=== PATIENT | female | born 1940 | race Caucasian/White ===

== ENCOUNTER → 2020-08-01 13:16 | Outpatient (REF) | payer MEDICARE, SELFPAY ==
--- NOTE | 2020-08-01 13:24 | CA_ITS ---
Transthoracic Echocardiogram Patient (Last, First, Middle): ToddMarch, Gender: Female Date of : 1940 Age: 80 Procedure Date: 08/01/2020 Procedure Type: Transthoracic Echocardiogram Location: OP Height: 154.94 cm Weight: 74.84 kg BSA: 1.74 m2 Heart Rate: bpm BP: 140 / 62 mmHg Domestic Maid: SUELLEN Huynh MD: Carson Angelo MD Sap Specialist: Carson Angelo MD Symptoms: I48.0 A-FIB Study Quality: Good ECG Rhythm: Sinus Conclusions: - 1. Normal LV systolic function with impaired relaxation filling pattern 2. Normal cardiac valvular Doppler 3. No pericardial effusion Findings Left Ventricle Normal left ventricular size, thickness, and systolic function. The visually estimated ejection fraction is between 65-70%. Spectral Doppler is indicative of an impaired relaxation filling pattern. E/E prime ratio is between 8 and 15 consistent with indeterminate filling pressures. Right Ventricle Normal right ventricular cavity size and systolic function. Atria Both atria are normal in size. There is no evidence of interatrial shunt. Aortic Valve There is mild thickening of the aortic valve. There is no aortic valve stenosis. There is no aortic valve regurgitation. Mitral Valve There is mild anterior mitral leaflet thickening. There is mild mitral annular calcification. There is trace mitral valve regurgitation. There is no mitral valve stenosis. Pulmonic Valve The pulmonic valve is likely normal. There is trace to mild pulmonic valve regurgitation. Tricuspid Valve Normal tricuspid valve structure. Tricuspid regurgitation envelope is inadequate for calculation of right ventricular systolic pressure. Great Vessels All visible segments of the aorta are normal in size. The pulmonary artery was not well visualized. Venous The inferior vena cava is collapsed, consistent with reduced intravascular volume. Pericardium/Pleural There is no evidence of pericardial effusion. Prior Study Comparison No change compared to prior study dated: 01/04/2019. Measurements 2D Linear Measurements RVIDd: 3.03 RVIDd Index: 1.74 IVSd: 1.14 0.6-0.9/0.6-1.0 cm LVIDd: 4.90 3.9-5.3/4.2-5.9 cm LVIDd Index: 2.82 2.4-3.2/2.2-3.1 cm/m2 LVIDs: 2.81 2.0-3.6 cm LVPWd: 1.10 0.7-1.1 cm Ao Root: 3.10 2.1-3.5 cm LA Diam: 3.90 2.7-3.8/3.0-4.0 cm LAIDs Index: 2.24 1.5-2.3 cm/m2 LV Mass: 297.37 67-162/88-224 g LV Mass Index: 170.90 43-95/49-115 g/m2 LVOT Diam: 2.20 3.0+(-)1.3 cm 2D Systolic Function EF 4C: 67.20 >55% EF 2C: 73.80 >55% EF BiP: 70.60 >55% Mitral Valve MV Pk E: 0.76 MV PK A: 1.07 MV Decel Time: 260.00 E/A: 0.70 E'Lateral: 7.07 E'Medial: 6.74 E/E' Med: 11.30 E/E' Lat: 10.80 PHT: 76.00 MVA PHT: 2.89 Decel [place]: 2.93 Aortic Valve AoV Pk Graham: 1.55 AoV Mn Graham: 1.14 AoV VTI: 0.37 AoV Pk Grad: 10.00 Aov Mn Grad: 6.00 ASHLEY Cont.VTI: 2.67 LVOT LVOT Pk Graham: 1.41 LVOT Mn Graham: 0.88 LVOT VTI: 0.26 LVOT Pk Grad: 8.00 LVOT Mn Grad: 4.00 LVOT Diam: 2.20 LVOT Area: 3.80 Diastolic Function MV Pk E: 0.76 MV Pk A: 1.07 E/A: 0.70 E'Medial: 6.74 E/E' Med: 11.30 E' Laterial: 7.07 E/E' Lat: 10.80 Tricuspid Valve TV Pk Graham: 2.36 TV Pk Grad: 22.00 RA Press: 3.00 Great Vessels Aorta Ao Root-2D: 3.10 2.0-3.7 cm Ao Asc: 3.30 2.1-3.4 cm Ao Arch: 3.10 Updated in Other Vendor System with Status of Final Carson Angelo MD electronically signed on 08/02/2020 9:18:43 AM with status of Final
== END ==
LOC: HO.CARD 13:16
PROVIDERS: PCP Orthopaedic Surgery; Visit Provider Internal Medicine Cardiovascular Disease
DX: I48.0 Paroxysmal atrial fibrillation (principal)
CPT/HCPCS: 93306

== ENCOUNTER → 2020-09-17 12:58 | Outpatient (BNVA) | payer MEDICARE, SELFPAY | PROVIDERS: PCP Internal Medicine; Visit Provider Internal Medicine Cardiovascular Disease | DX: I48.0 Paroxysmal atrial fibrillation (principal); I10 Essential (primary) hypertension; R00.2 Palpitations | CPT/HCPCS: 99212 ==

== ENCOUNTER → 2020-09-25 14:45 | Outpatient (BNVA) | payer MEDICARE, SELFPAY | PROVIDERS: PCP Internal Medicine; Visit Provider Internal Medicine Cardiovascular Disease | DX: Z76.89 Persons encountering health services in other specified circumstances (principal) ==

== ENCOUNTER 2020-09-26 20:27 | Inpatient (IN) | payer MEDICARE, SELFPAY ==
[2020-09-26 20:40] VITALS: BP 158/94; PULSE 113; RESP 18; TEMP 36.6; O2SAT 98; BMI 32.9
--- NOTE | 2020-09-26 20:54 | XR_ITS ---
EXAMINATION: XR CHEST CLINICAL INFORMATION: Palpitations COMPARISON: 05/02/2020 TECHNIQUE: Frontal view of the chest was obtained. FINDINGS: No significant abnormality is noted involving the heart, lungs, mediastinum, bony thorax or soft tissues. XR/XR chest 1V IMPRESSION: Unremarkable examination.
--- NOTE | 2020-09-26 20:54 | ECG_ITS ---
Test Reason : PALPITATIONS Blood Pressure : / mmHG Vent. Rate : 111 BPM Atrial Rate : 075 BPM P-R Int : 000 ms QRS Dur : 092 ms QT Int : 294 ms P-R-T Axes : 000 -14 068 degrees QTc Int : 399 ms Atrial fibrillation with rapid ventricular response Marked ST abnormality, possible inferior subendocardial injury Abnormal ECG When compared to the previous EKG of Atrial fibrillation has replaced Normal sinus rhythm Referred By: Johann Turner Electronically Signed By:MYNOR BALDERAS MD
--- NOTE | 2020-09-26 20:57 | ED_ITS ---
HPI - Arrhythmia/Palpitations General Chief Complaint: Arrhythmia/Palpitations Stated Complaint: HEART PALIPTATIONS Time Seen by Provider: 09/26/20 20:43 Source: patient Mode of arrival: ambulatory Limitations: no limitations History of Present Illness HPI narrative: 80-year-old female with history of paroxysmal atrial fibrillation, patient was recently seen by Dr. Angelo and had a Holter monitor placed 2 days ago for evaluation of palpitation, patient presented today with 2 hours of feeling palpitation (patient checked her pulse was in the 130s), patient declined feeling dizziness but she had a mild mid chest pain to the right of the midsternum, with no radiation, patient declined any dyspnea, pain is about 1 to 2/10 with no radiation, nothing worsening the pain relief it. Related Data Home Medications Medication Instructions Recorded Confirmed amlodipine 10 mg tablet 10 mg PO DAILY 09/17/20 09/17/20 atorvastatin 40 mg tablet 40 mg PO DAILY 09/17/20 09/17/20 cholecalciferol (vitamin D3) 25 25 mcg PO DAILY 09/17/20 09/17/20 mcg (1,000 unit) capsule cyanocobalamin (vitamin B-12) 2,000 mcg PO DAILY 09/17/20 09/17/20 2,000 mcg tablet,extended release lorazepam 0.5 mg tablet 0.5 mg PO BEDTIME PRN 09/17/20 09/17/20 losartan 50 mg tablet 50 mg PO DAILY 09/17/20 09/17/20 metoprolol tartrate 50 mg tablet 50 mg PO BID 09/17/20 09/17/20 warfarin 5 mg tablet 5 mg PO DAILY 09/17/20 09/17/20 Allergies Allergy/AdvReac Type Severity Reaction Status Date / Time codeine [CODEINE] Allergy Unknown HEADACHES Unverified 06/21/20 15:11 hydrochlorothiazide Allergy Unknown NAUSEA & Unverified 06/21/20 15:11 [HYDROCHLOROTHIAZIDE] VOMITING, low K latex [LATEX] Allergy Unknown RASH Unverified 06/21/20 15:11 lisinopril [LISINOPRIL] Allergy Unknown COUGH Unverified 06/21/20 15:11 losartan [LOSARTAN] Allergy Unknown ITCHING Unverified 06/21/20 15:11 Review of Systems Review of Systems: All other systems are reviewed and are negative Constitutional: Reports as per HPI and Reports no additional constitutional complaints Eyes: Reports as per HPI and Reports no additional eye complaints Reports system reviewed and no additional complaints, except as documented Cardiovascular: Reports as per HPI and Reports no additional cardiovascular complaints Respiratory: Reports as per HPI and Reports no additional respiratory complaints Gastrointestinal: Reports as per HPI and Reports no additional gastrointestinal complaints Genitourinary: Reports no additional female genitourinary complaints Musculoskeletal: Reports no additional musculoskeletal complaints Skin/Breast: Reports system reviewed and no additional complaints, except as docu Psychiatric: Reports no additional psychiatric complaints Endocrine: Reports no additional endocrine complaints Hematologic/Lymphatic: Reports no additional hematologic/lymphatic complaints Allergic/Immunologic: Reports no additional allergic/immunologic complaints Reports system reviewed and no additional complaints, except as documented and R eports Abnormal speech present [facility] Past Medical History Medical History HTN (hypertension) Paroxysmal atrial fibrillation Surgical History Hx of tubal ligation Family History Family History Father CVD (cardiovascular disease) Mother CVD (cardiovascular disease) Diabetes Social History Social History Alcohol intake: never Smoking Status: Never smoker Use of substances other than those prescribed or required for medical reasons: No Advance Directives: No Advance Directives Information Provided: Yes Physical Exam Vital Signs: Vital Signs: Last Vital Signs Temp 97.9 F 09/26/20 20:40 Pulse 88 09/26/20 21:41 Resp 18 09/26/20 21:41 BP 116/69 09/26/20 21:41 Pulse Ox 95 09/26/20 21:41 Body Mass Index 32.9 Vital signs have been reviewed as normal and appeared to be correct. Blood pressure in the high range. Tachycardia. Respiration rate normal. Temperature normal. Oxygen saturation normal. Appearance: Alert. Oriented X3. No acute distress. Head: Normal external exam. Normocephalic. Atraumatic. No Slaughter signs noted. No raccoon eyes noted Eyes: PERRLA. EOMI. Conjunctiva and sclera normal. Eyelids normal. ENT: EAC normal. TM's Normal. Pharynx normal. Uvula midline. Moist mucous membranes. No trismus noted. No drooling noted. No muffled voice noted. Neck: Normal inspection. Neck supple. FROM. No adenopathy. Thyroid Normal. No meningeal signs. No neck mass noted. CVS: Rapid heart rate and irregular rhythm. Heart sound normal. No murmurs noted. Pulses normal throughout. Respiratory: No respiratory distress. Painless inspiration. Breath sounds normal. No wheezes/rales/rhonchi noted. Chest nontender. No accessory muscle usage noted or decreased air movement noted. Abdomen: Soft and nontender. Bowel sounds normal in all 4 quadrants. No distention noted. No organomegaly noted. No visible injury noted. Back: No CVA tenderness. Full range of motion noted. Skin: Skin warm and dry. Normal skin color. Normal skin turgor. No rashes/lesions/lacerations noted. Extremities: No lower extremity edema. Extremities exhibit normal range of motion. Extremities nontender. Neuro: Oriented X 3. No motor deficit. No sensory deficit. Reflexes normal. MDM - Arrhythmia/Palpitations MDM Narrative Medical decision making narrative: Assessment and plan. 80-year-old female with history of parts a small atrial fibrillation patient is taking propranolol/Coumadin for atrial fibrillation, for the past 2 days patient been having on and off feeling of palpitation with mild chest pain (to the right of the midsternum), patient was seen and evaluated by Dr. Angelo patient had Holter monitor was placed 2 days ago. Patient today found to be in rapid atrial fibrillation with rapid ventricular response, patient responded to Cardizem bolus/Cardizem IV drip. Lab Data Result diagrams: 09/26/20 21:14 09/26/20 21:14 Labs: Lab Results 09/26/20 09/26/20 09/26/20 Range/Units 21:14 21:14 21:14 WBC 8.9 (4.8-10.8) X10*3/uL RBC 5.11 (4.20-5.50) X10*6/uL Hgb 15.5 (12.0-16.0) g/dl Hct 45.6 (37-47) % MCV 89.2 (80-98) fL MCH 30.3 (27.0-33.0) pg MCHC 34.0 (31.0-35.0) g/dl RDW 12.7 (11.0-16.0) % Plt Count 229 (160-400) X10*3/uL MPV 9.8 (9.4-12.3) fL Immature Gran % (Auto) 0.1 (0.0-0.4) % Neut % (Auto) 53.9 (45-73) % Lymph % (Auto) 36.0 (20-40) % [place] % (Auto) 8.0 (2-11) % Eos % (Auto) 1.7 (0-4) % Baso % (Auto) 0.3 (0-2) % Lymph # (Auto) 3.2 (1.2-4.9) X10*3/uL [place] # (Auto) 0.7 (0.1-1.2) X10*3/uL Eos # (Auto) 0.2 (0.0-0.4) X10*3/uL Baso # (Auto) 0.0 (0.0-0.2) X10*3/uL Abs Immat Gran (auto) 0.01 (0.00-0.03) X10*3/uL Absolute Neuts (auto) 4.8 (2.0-8.3) X10*3/uL Absolute Nucleated RBC 0.000 (0.0-0.012) X10*3/uL Nucleated RBC % (auto) 0.0 (0.0-0.2) /100WBC PT 19.6 H (10.8-13.0) SEC INR 1.6 H (0.9-1.1) APTT 43.2 H (24.1-38.0) SEC Sodium 140 (135-145) mmol/L Potassium 3.8 (3.3-5.1) mmol/l Chloride 106 (96-108) mmol/L Carbon Dioxide 25 (22-29) mmol/L Anion Gap 13 (12-20) BUN 22 H (9-16) mg/dL Creatinine 0.75 (0.5-1.4) mg/dL Estim Creat Clear Calc 56.9 Estimated GFR > 60 Random Glucose 207 H (60-115) mg/dL Calcium 9.3 (8.4-10.2) mg/dL Total Bilirubin 1.8 H (0.0-1.0) mg/dL Direct Bilirubin 0.6 H (0.0-0.5) mg/dL AST 19 (5-31) U/L ALT 16 (0-31) U/L Alkaline Phosphatase 118 H (39-117) U/L Troponin I High Sens (<3.5-17.0) ng/L B-Natriuretic Peptide (<100) pg/mL Total Protein 7.2 (6.5-8.0) g/dL Albumin 4.4 (3.5-5.0) g/dL Lipase 37 (8-78) U/L Urine Color Urine Appearance Urine pH (5.0-8.0) Ur Specific [place] (1.005-1.025) Urine Protein (NEG-TRACE) MG/DL Urine Glucose (UA) (NEG) MG/DL Urine Ketones (NEG) MG/DL Urine Blood (NEG) Urine Nitrite (NEG) Ur Leukocyte Esterase (NEG) Urine RBC (0) /HPF Urine WBC (0-4) /HPF Ur Squamous Epith Cells /LPF Urine Bacteria /LPF COVID-19 (GANESH) (Negative) COVID-19 Clin Com 09/26/20 09/26/20 09/26/20 Range/Units 21:14 21:14 21:14 WBC (4.8-10.8) X10*3/uL RBC (4.20-5.50) X10*6/uL Hgb (12.0-16.0) g/dl Hct (37-47) % MCV (80-98) fL MCH (27.0-33.0) pg MCHC (31.0-35.0) g/dl RDW (11.0-16.0) % Plt Count (160-400) X10*3/uL MPV (9.4-12.3) fL Immature Gran % (Auto) (0.0-0.4) % Neut % (Auto) (45-73) % Lymph % (Auto) (20-40) % [place] % (Auto) (2-11) % Eos % (Auto) (0-4) % Baso % (Auto) (0-2) % Lymph # (Auto) (1.2-4.9) X10*3/uL [place] # (Auto) (0.1-1.2) X10*3/uL Eos # (Auto) (0.0-0.4) X10*3/uL Baso # (Auto) (0.0-0.2) X10*3/uL Abs Immat Gran (auto) (0.00-0.03) X10*3/uL Absolute Neuts (auto) (2.0-8.3) X10*3/uL Absolute Nucleated RBC (0.0-0.012) X10*3/uL Nucleated RBC % (auto) (0.0-0.2) /100WBC PT (10.8-13.0) SEC INR (0.9-1.1) APTT (24.1-38.0) SEC Sodium (135-145) mmol/L Potassium (3.3-5.1) mmol/l Chloride (96-108) mmol/L Carbon Dioxide (22-29) mmol/L Anion Gap (12-20) BUN (9-16) mg/dL Creatinine (0.5-1.4) mg/dL Estim Creat Clear Calc Estimated GFR Random Glucose (60-115) mg/dL Calcium (8.4-10.2) mg/dL Total Bilirubin (0.0-1.0) mg/dL Direct Bilirubin (0.0-0.5) mg/dL AST (5-31) U/L ALT (0-31) U/L Alkaline Phosphatase (39-117) U/L Troponin I High Sens 3.5 (<3.5-17.0) ng/L B-Natriuretic Peptide 66 (<100) pg/mL Total Protein (6.5-8.0) g/dL Albumin (3.5-5.0) g/dL Lipase (8-78) U/L Urine Color YELLOW Urine Appearance CLEAR Urine pH 6.5 (5.0-8.0) Ur Specific [place] 1.015 (1.005-1.025) Urine Protein NEG (NEG-TRACE) MG/DL Urine Glucose (UA) 100 H (NEG) MG/DL Urine Ketones NEG (NEG) MG/DL Urine Blood 1+ H (NEG) Urine Nitrite NEG (NEG) Ur Leukocyte Esterase NEG (NEG) Urine RBC 0-2 (0) /HPF Urine WBC 0-2 (0-4) /HPF Ur Squamous Epith Cells TRACE /LPF Urine Bacteria NONE /LPF COVID-19 (GANESH) Negative (Negative) COVID-19 Clin Com See Note Imaging Data Chest x-ray: Radiologist's impression: Unremarkable chest x-ray. ECG Data Interpretation: Atrial fibrillation with rapid ventricular response of 111 beats per minutes, left axis deviation, unremarkable intervals otherwise, ST de pression in V4, V5, V6. Critical Care Time Critical Care Time Critical Care Time: Yes Total Critical Care Time: 45 Attestation: I spent 45 minutes at the bedside providing critical care level to the patient, time including monitoring patient's vital signs, starting patient on AV holli, reviewing x-ray/labs/EKG, serial exam. Discharge Plan Discharge Clinical Impression: Palpitations, Atrial fibrillation Patient Disposition: Home, Self-Care Prescriptions: No Action amlodipine 10 mg tablet 10 mg PO DAILY RF: 0 losartan 50 mg tablet 50 mg PO DAILY RF: 0 metoprolol tartrate 50 mg tablet 50 mg PO BID RF: 0 warfarin 5 mg tablet 5 mg PO DAILY RF: 0 atorvastatin 40 mg tablet 40 mg PO DAILY RF: 0 lorazepam 0.5 mg tablet 0.5 mg PO BEDTIME PRN (Reason: anxiety) RF: 0 cyanocobalamin (vitamin B-12) 2,000 mcg tablet extended release 2,000 mcg PO DAILY RF: 0 cholecalciferol (vitamin D3) 25 mcg (1,000 unit) capsule 25 mcg PO DAILY RF: 0
[2020-09-26 21:23] LABS: Basophils Percent Auto 0.3 % (0-2); Eosinophils Absolute Auto 0.2 X10*3/uL (0.0-0.4); Eosinophils Percent Auto 1.7 % (0-4); Hematocrit 45.6 % (37-47); Hemoglobin 15.5 g/dl (12.0-16.0); Imm Gran Abs Auto 0.01 X10*3/uL (0.00-0.03); Imm Gran Pct Auto 0.1 % (0.0-0.4); Lymphocytes Absolute Auto 3.2 X10*3/uL (1.2-4.9); Mean Corpuscular Hemoglobin 30.3 pg (27.0-33.0); Mean Corpuscular Volume 89.2 fL (80-98); Mean Platelet Volume 9.8 fL (9.4-12.3); Monocytes Absolute Auto 0.7 X10*3/uL (0.1-1.2); Neutrophils Absolute Auto 4.8 X10*3/uL (2.0-8.3); Neutrophils Percent Auto 53.9 % (45-73); Platelet Count 229 X10*3/uL (160-400); Red Blood Count 5.11 X10*6/uL (4.20-5.50); Red Cell Distribution Width 12.7 % (11.0-16.0); White Blood Count 8.9 X10*3/uL (4.8-10.8)
[2020-09-26 21:25] LABS: MANUAL DIFF FLAG NO
[2020-09-26 21:30] LABS: Glucose Urine UA 100 MG/DL (NEG); Leukocyte Esterase Urine NEG (NEG); Nitrite Urine NEG (NEG); PH 6.5 (5.0-8.0); Specific Gravity - Urine 1.015 (1.005-1.025); Urine Blood 1+ (NEG); Urine Ketones NEG (NEG); Urine Protein NEG (NEG-TRACE)
--- NOTE | 2020-09-26 21:30 | PC.NURSE ---
iv inserted labs drawn, ekg performed, cxr performed
[2020-09-26 21:32] LABS: Appearance Urine CLEAR; Color Urine YELLOW
[2020-09-26 21:34] VITALS: BP 134/90; PULSE 119
[2020-09-26 21:34] LABS: INTERNATIONAL NORM RATIO 1.6 (0.9-1.1); Prothrombin Time 19.6 SEC (10.8-13.0)
[2020-09-26] MEDS: dilTIAZem HCL 50 MG/10 ML VIAL 20 MG IVPUSH (21:34)
[2020-09-26 21:36] LABS: COVID-19 Test Negative (Negative); Partial Thromboplastin Time 43.2 SEC (24.1-38.0)
[2020-09-26] MEDS: dilTIAZem HCL 125 MG in 0.9 % Sodium Chloride 100 ML 10 MG IVCONT (21:36)
--- NOTE | 2020-09-26 21:40 | PC.NURSE ---
pt medicated per order with bolus dose diltiazem, iv drip of diltiazem started, pt hr is ranging from 70s-100 after the initial ivp, provider wishes for the patient to continue with the iv drip at this time
[2020-09-26 21:41] VITALS: BP 116/69; PULSE 88; RESP 18; O2SAT 95
--- NOTE | 2020-09-26 21:42 | PC.NURSE ---
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
[2020-09-26 21:46] VITALS: BP 126/74; PULSE 90; RESP 17; O2SAT 95
[2020-09-26 21:48] LABS: RBC Urine 0-2 /HPF (0); Squamous Epithelial Cell Urine TRACE /LPF; WBC Urine 0-2 /HPF (0-4)
[2020-09-26 21:49] LABS: Alanine Aminotransferase 16 U/L (0-31); Albumin Level 4.4 g/dL (3.5-5.0); Alkaline Phosphatase 118 U/L (39-117); Anion Gap 13 (12-20); Aspartate Amino Transferase 19 U/L (5-31); Bilirubin Direct 0.6 mg/dL (0.0-0.5); Bilirubin Total 1.8 mg/dL (0.0-1.0); Blood Urea Nitrogen 22 mg/dL (9-16); Calcium 9.3 mg/dL (8.4-10.2); Carbon Dioxide 25 mmol/L (22-29); Chloride 106 mmol/L (96-108); Creatinine Clr Calc Pharmacy 56.9; Estimated Glomerular Filt Rate > 60; Glucose Random 207 mg/dL (60-115); Lipase 37 U/L (8-78); Potassium 3.8 mmol/l (3.3-5.1); Sodium 140 mmol/L (135-145); Total Protein 7.2 g/dL (6.5-8.0)
[2020-09-26 21:51] VITALS: BP 134/73; PULSE 97; RESP 17; O2SAT 94
[2020-09-26 21:54] LABS: B Type Natriuretic Peptide 66 pg/mL (<100); Troponin-I High Sensitivity 3.5 ng/L (<3.5-17.0)
--- NOTE | 2020-09-26 21:55 | PC.NURSE ---
patients ddiltiazem titrated to 15mg/hr, pt currently in afib on the monitor ranging from mid 90s-low 100s, patient vss, continues to be a&ox3, denies pain or discomfort, will continue to monitor.
[2020-09-26 22:00] VITALS: BP 129/86; PULSE 102; RESP 17; O2SAT 94
--- NOTE | 2020-09-26 22:24 | PC.NURSE ---
hospitalist in to see the patient
--- NOTE | 2020-09-26 23:43 | PC.NURSE ---
REPORT GIVEN TO RN, PT READY FOR TRANSPORT TO FLOOR.
[2020-09-27] VITALS (8 sets, daily range): BP systolic 107–152; BP diastolic 56–82; PULSE 57–86; RESP 14–18; TEMP 36.4–37.3; O2SAT 96–97; BMI 32.9
--- NOTE | 2020-09-27 00:14 | PC.NURSE ---
report from jane rn at 23:00. pt is in no distress and never experienced any chest discomfort. jane reports pt's hr has been 88-110 afib. pt's hr has been in the 80's since 22:00. pt remained on cardiaen drip 15mg/hr until 00:00 when pt ready for transport. noticed bp and hr had come down. pt now in NSR rate of 62. cardizem drip lowered to 10mg/hr, spoke with MD Turner in ER. Johnny then decided to lower cardizem drip again, fearfull if we take her off her HR will rebound. pt now on cardizem drip 5mg/hr.
--- NOTE | 2020-09-27 00:57 | PC.NURSE ---
Patient admited to unit from ED with Cardizem drip at 5mg/hr. Per EDRN patient had coverted to NSR at some point before transfer occured. HR NSR 60s. MD made aware. Cardizem Drip held per MD. Patient alert and oriented. No complaints at this time. VSS. HR currently 55 sinus alexandrea. Patient able to ambulate to the bed from hallway. Will monitor.
--- NOTE | 2020-09-27 01:18 | PC.NURSE ---
PT TRANSPORTED TO FLOOR ON ENVIRONMENTAL INTERN. CARDIZEM DRIP DC'D PER HOSPITALIST ORDER PER RN ON FLOOR. PT REMAINED IN NSR RATE 65 DURING TRANSPORT AND WHILE TRANSFERRING TO ROOM.
[2020-09-27 01:51] LABS: INTERNATIONAL NORM RATIO 1.7 (0.9-1.1); Prothrombin Time 20.3 SEC (10.8-13.0)
[2020-09-27 04:36] LABS: Basophils Percent Auto 0.5 % (0-2); Eosinophils Absolute Auto 0.1 X10*3/uL (0.0-0.4); Eosinophils Percent Auto 1.9 % (0-4); Hematocrit 40.2 % (37-47); Hemoglobin 13.3 g/dl (12.0-16.0); Imm Gran Abs Auto 0.01 X10*3/uL (0.00-0.03); Imm Gran Pct Auto 0.2 % (0.0-0.4); Lymphocytes Absolute Auto 2.2 X10*3/uL (1.2-4.9); Lymphocytes Percent Auto 34.4 % (20-40); MANUAL DIFF FLAG NO; Mean Corpuscular HGB Conc 33.1 g/dl (31.0-35.0); Mean Corpuscular Hemoglobin 29.6 pg (27.0-33.0); Mean Corpuscular Volume 89.5 fL (80-98); Mean Platelet Volume 10.1 fL (9.4-12.3); Monocytes Absolute Auto 0.6 X10*3/uL (0.1-1.2); Monocytes Percent Auto 9.8 % (2-11); Neutrophils Absolute Auto 3.4 X10*3/uL (2.0-8.3); Neutrophils Percent Auto 53.2 % (45-73); Platelet Count 213 X10*3/uL (160-400); Red Blood Count 4.49 X10*6/uL (4.20-5.50); Red Cell Distribution Width 12.7 % (11.0-16.0); White Blood Count 6.3 X10*3/uL (4.8-10.8)
[2020-09-27 05:03] LABS: Anion Gap 11 (12-20); Blood Urea Nitrogen 22 mg/dL (9-16); Calcium 8.8 mg/dL (8.4-10.2); Carbon Dioxide 24 mmol/L (22-29); Chloride 109 mmol/L (96-108); Creatinine Clr Calc Pharmacy 66.6; Estimated Glomerular Filt Rate > 60; Glucose Random 110 mg/dL (60-115); Potassium 3.6 mmol/l (3.3-5.1); Sodium 140 mmol/L (135-145)
--- NOTE | 2020-09-27 05:09 | PM.IMHP ---
History of Present Illness Date of Service: 09/26/20 Chief Complaint: Palpitations This is an 80-year-old female with past medical history of hypertension and paroxysmal AFib presents the hospital with complaints of palpitations. Patient reports that she was watching cell takes came when she felt her heart racing. She did not have any chest pain, no dizziness, no headache, no change in vision, no abdominal pain nausea or vomiting. No diarrhea constipation. No weakness numbness or tingling. She reports that she is usually has sensations of palpitations binge with this 1 was the lasting longer than 20 minutes. She has seen her sale professional digital marketing recently and was placed on a Holter monitor. She has not had any orthopnea PND or lower extremity edema. She reports that her heart was in the 130s at home. On arrival to the ED hemodynamically stable with vitals showing heart rate of 119, Labs are significant for WBC count of 6.3, hemoglobin of 13.3 hematocrit of 40.2, PT of 20.3, INR of 1.7, sodium of 140, BUN of 22 with creatinine of 0.64. Chronically mildly elevated total bili of 1.8, UA negative. Chest x-ray negative. Past medical history: Hypertension, paroxysmal AFib on Coumadin Past surgical history: Cataracts, tubal ligation Family history: Heart disease Social history: Comes from home, lives with her son and her granddaughter, denies any tobacco alcohol or illicit drugs Review of Systems Review of Systems: Yes all other systems are reviewed and are negative [facility] Medical History HTN (hypertension) Paroxysmal atrial fibrillation Family History Father CVD (cardiovascular disease) Mother CVD (cardiovascular disease) Diabetes Surgical History Hx of tubal ligation Social History Household Members: Family Housing: House Do you presently have visiting nurse or other home services: No Alcohol intake: never Smoking Status: Never smoker Use of substances other than those prescribed or required for medical reasons: No Have you been hit, kicked, punched, or otherwise hurt by someone within the past year? If so, by whom?: No Do you feel safe in your current relationship?: No Current Relationship Is there a partner from a previous relationship who is making you feel unsafe now?: No Are you made to feel afraid or neglected: No Advance Directives: No Advance Directives Information Provided: Yes Do you have thoughts of harming others: None Do you have a plan to hurt others: No Plan Recently lost weight without trying: No Meds Allergies Allergy/AdvReac Type Severity Reaction Status Date / Time codeine [CODEINE] Allergy Intermediate HEADACHES Verified 09/26/20 22:34 hydrochlorothiazide Allergy Intermediate NAUSEA & Verified 09/26/20 22:34 [HYDROCHLOROTHIAZIDE] VOMITING, low K latex [LATEX] Allergy Intermediate RASH Verified 09/26/20 22:34 lisinopril [LISINOPRIL] AdvReac Mild COUGH Verified 09/26/20 22:35 losartan [LOSARTAN] AdvReac Mild ITCHING Verified 09/26/20 22:35 Home Medications Medication Instructions Recorded Confirmed Type amlodipine 10 mg tablet 10 mg PO DAILY 09/17/20 09/26/20 History atorvastatin 40 mg tablet 40 mg PO DAILY 09/17/20 09/26/20 History cholecalciferol (vitamin D3) 25 25 mcg PO DAILY 09/17/20 09/26/20 History mcg (1,000 unit) capsule metoprolol tartrate 50 mg tablet 50 mg PO BID 09/17/20 09/26/20 History warfarin 5 mg tablet 2.5 mg PO DAILY 09/17/20 09/26/20 History losartan 1 tab PO DAILY 09/26/20 09/26/20 History Physical Exam Vital Signs and Narrative: Vital Signs: Last Vital Signs Temp 97.9 F 09/27/20 03:14 Pulse 76 09/27/20 03:14 Resp 18 09/27/20 03:14 BP 141/63 H 09/27/20 03:14 Pulse Ox 97 09/27/20 03:14 Body Mass Index 32.9 Const: General: cooperative and no acute distress Orientation/consciousness: patient oriented x3 Eyes: General: appearance normal, both eyes and all related structures Pupils: Equal, round and reactive pupils present Resp: Effort & Inspection: normal respiratory effort and able to speak in complete sentences Cardio: Other: Tachycardic, irregular rhythm GI: Palpation (GI): Soft to palpation Auscultation: normal bowel sounds Skin: General skin exam: no rashes or lesions noted Neuro: General: patient oriented x3 Cranial nerves: Yes Equal, round and reactive pupils present Cognition (Neuro): normal cognition Extrem: General: Yes normal to inspection and Yes no pedal edema Results Labs CBC and Chem 7: 09/27/20 04:14 09/27/20 04:14 Labs: Laboratory Results - last 24 hr 09/26/20 09/26/20 09/26/20 21:14 21:14 21:14 MCV 89.2 MCH 30.3 MCHC 34.0 RDW 12.7 Plt Count 229 MPV 9.8 Immature Gran % (Auto) 0.1 Neut % (Auto) 53.9 Lymph % (Auto) 36.0 [place] % (Auto) 8.0 Eos % (Auto) 1.7 Baso % (Auto) 0.3 Lymph # (Auto) 3.2 [place] # (Auto) 0.7 Eos # (Auto) 0.2 Baso # (Auto) 0.0 Abs Immat Gran (auto) 0.01 Absolute Neuts (auto) 4.8 Absolute Nucleated RBC 0.000 Nucleated RBC % (auto) 0.0 PT 19.6 H INR 1.6 H APTT 43.2 H Anion Gap 13 Estim Creat Clear Calc 56.9 Estimated GFR > 60 Random Glucose 207 H Calcium 9.3 Total Bilirubin 1.8 H Direct Bilirubin 0.6 H AST 19 ALT 16 Alkaline Phosphatase 118 H Troponin I High Sens B-Natriuretic Peptide Total Protein 7.2 Albumin 4.4 Lipase 37 Urine Color Urine Appearance Urine pH Ur Specific [place] Urine Protein Urine Glucose (UA) Urine Ketones Urine Blood Urine Nitrite Ur Leukocyte Esterase Urine RBC Urine WBC Ur Squamous Epith Cells Urine Bacteria COVID-19 (GANESH) COVID-19 Clin Com 09/26/20 09/26/20 09/26/20 21:14 21:14 21:14 MCV MCH MCHC RDW Plt Count MPV Immature Gran % (Auto) Neut % (Auto) Lymph % (Auto) [place] % (Auto) Eos % (Auto) Baso % (Auto) Lymph # (Auto) [place] # (Auto) Eos # (Auto) Baso # (Auto) Abs Immat Gran (auto) Absolute Neuts (auto) Absolute Nucleated RBC Nucleated RBC % (auto) PT INR APTT Anion Gap Estim Creat Clear Calc Estimated GFR Random Glucose Calcium Total Bilirubin Direct Bilirubin AST ALT Alkaline Phosphatase Troponin I High Sens 3.5 B-Natriuretic Peptide 66 Total Protein Albumin Lipase Urine Color YELLOW Urine Appearance CLEAR Urine pH 6.5 Ur Specific [place] 1.015 Urine Protein NEG Urine Glucose (UA) 100 H Urine Ketones NEG Urine Blood 1+ H Urine Nitrite NEG Ur Leukocyte Esterase NEG Urine RBC 0-2 Urine WBC 0-2 Ur Squamous Epith Cells TRACE Urine Bacteria NONE COVID-19 (GANESH) Negative COVID-19 Clin Com See Note 09/27/20 09/27/20 09/27/20 01:29 04:14 04:14 MCV 89.5 MCH 29.6 MCHC 33.1 RDW 12.7 Plt Count 213 MPV 10.1 Immature Gran % (Auto) 0.2 Neut % (Auto) 53.2 Lymph % (Auto) 34.4 [place] % (Auto) 9.8 Eos % (Auto) 1.9 Baso % (Auto) 0.5 Lymph # (Auto) 2.2 [place] # (Auto) 0.6 Eos # (Auto) 0.1 Baso # (Auto) 0.0 Abs Immat Gran (auto) 0.01 Absolute Neuts (auto) 3.4 Absolute Nucleated RBC 0.000 Nucleated RBC % (auto) 0.0 PT 20.3 H INR 1.7 H APTT Anion Gap 11 L Estim Creat Clear Calc 66.6 Estimated GFR > 60 Random Glucose 110 D Calcium 8.8 Total Bilirubin Direct Bilirubin AST ALT Alkaline Phosphatase Troponin I High Sens B-Natriuretic Peptide Total Protein Albumin Lipase Urine Color Urine Appearance Urine pH Ur Specific [place] Urine Protein Urine Glucose (UA) Urine Ketones Urine Blood Urine Nitrite Ur Leukocyte Esterase Urine RBC Urine WBC Ur Squamous Epith Cells Urine Bacteria COVID-19 (GANESH) COVID-19 Clin Com Imaging Radiologist's Impressions: Impressions Chest X-Ray 09/26/20 20:54 IMPRESSION: Unremarkable examination. Assessment and Plan (1) Atrial fibrillation with RVR: Status: Acute (2) HTN (hypertension): Status: Acute This is an 80-year-old female with past medical history of AFib on Coumadin who presents to the hospital in palpitations. # AFib with RVR - heart rate 90-120 - asymptomatic except for palpitations, no dizziness, no chest pain, no shortness of breath - patient has been having palpitations regularly and has been placed on Holter monitor by her sale professional digital marketing 2 days ago - no troponin leak, no elevated BNP, no evidence of CHF Plan: - patient on Cardizem drip with rate control - continue Coumadin, amiodarone and metoprolol(can give metoprolol once off the Cardizem drip) - echocardiogram - consult cardiology # hypertension - stable - continue losartan # subtherapeutic INR - continue Coumadin - follow PT INR daily DVT prophylaxis: Coumadin
[2020-09-27 06:27] LABS: INTERNATIONAL NORM RATIO 1.8 (0.9-1.1); Prothrombin Time 21.5 SEC (10.8-13.0)
--- NOTE | 2020-09-27 08:47 | MHC.CM.PN ---
CM was unable to reach Patient by phone (Covid Precautions) ; CM spoke with Daughter/Brianna at [phone]. Patient lives in a 2 family house with her Son/Ousmane and his on the first floor and her other Son living upstairs. Patient used no DME nor services [employer]. Patient has her blood work r/t her Coumadin, drawn at [facility] in [place].The goal for dc is to return home, no services and CM has initiated and will follow for dc planning. IMM addressed with Brianna and will be mailed certified letter to her @ [facility] in [place], and a copy has been placed on the chart.PCP is Dr. Claudia Mondragon and HCP is Son/Gasper @ [phone].
[2020-09-27] MEDS: Metoprolol Tartrate 50 MG TABLET PO (09:57)
[2020-09-27] MEDS: 0.9 % Sodium Chloride Flush 3 ML SYRINGE IVFLUSH (10:00)
[2020-09-27] MEDS: Cholecalciferol (Vitamin D3) 25 MCG TABLET PO (10:00)
[2020-09-27] MEDS: amLODIPine Besylate 10 MG TABLET PO (10:00)
--- NOTE | 2020-09-27 10:02 | PC.NURSE ---
Seen by cardiology. Will begin pt on multaq 400 BID. Pt educated on use of medication. Plan for discharge after lunch today. Pt refusing losartan this am as she states that she takes at home and will take later today after discharge.
[2020-09-27] MEDS: Dronedarone HCl 400 MG TABLET PO (10:06)
--- NOTE | 2020-09-27 11:22 | PM.CNCAR ---
History of Present Illness History of Present Illness Date of Service: 09/27/20 Consult reason: atrial fibrillation Chief complaint: Afib with RVR Narrative: Thank you for inviting us and consult on March for atrial fibrillation. She is a pleasant 80-year-old woman was prior history of paroxysmal atrial fibrillation. She also has history of hypertension that has been difficult control. Yesterday while she was watching cell takes came, she started noticing irregular heartbeat and feeling palpitation and funny. She then took her pulse and noted that her pulse was irregular. She took her blood pressure and pulse on the blood pressure monitor reported at 130. She got concerned. She did take extra metoprolol but symptoms persisted and therefore came to the emergency room. In the emergency room she was noted to be in atrial fibrillation with rapid ventricular response. She was therefore admitted with IV Cardizem. She converted back to sinus rhythm. This morning feels pounding in her chest and skipped heartbeats. Monitor shows isolated PACs. Blood pressure is well controlled. She is very anxious about this new finding. She has been adequately oral anticoagulated with warfarin. Review of Systems Constitutional: Constitutional: Denies body ache(s), Denies chills, Denies fever(s) and Denies malaise Eyes: Eyes: Reports no additional eye complaints ENT: Reports system reviewed and no additional complaints, except as documented Cardiovascular: Cardiovascular: Reports chest pain, Denies chest pain with activity and Reports palpitations Respiratory: Respiratory: Reports no additional respiratory complaints Gastrointestinal: Gastrointestinal: Reports no additional gastrointestinal complaints Genitourinary: Genitourinary: Reports no additional female genitourinary complaints Neurologic: Reports system reviewed and no additional complaints, except as documented Psychiatric: Psychiatric: Reports anxiety Endocrine: Endocrine: Reports no additional endocrine complaints and Reports palpitations Hematologic/Lymphatic: Hematologic/Lymphatic: Reports no additional hematologic/lymphatic complaints Allergic/Immunologic: Allergic/Immunologic: Reports no additional allergic/immunologic complaints [facility] Past Medical History Medical History HTN (hypertension) Paroxysmal atrial fibrillation Family History Family History Father CVD (cardiovascular disease) Mother CVD (cardiovascular disease) Diabetes Surgical History Surgical History Hx of tubal ligation Social History Social History Household Members: Family Housing: House Do you presently have visiting nurse or other home services: No Alcohol intake: never Smoking Status: Never smoker Use of substances other than those prescribed or required for medical reasons: No Have you been hit, kicked, punched, or otherwise hurt by someone within the past year? If so, by whom?: No Do you feel safe in your current relationship?: No Current Relationship Is there a partner from a previous relationship who is making you feel unsafe now?: No Are you made to feel afraid or neglected: No Advance Directives: No Advance Directives Information Provided: Yes Do you have thoughts of harming others: None Do you have a plan to hurt others: No Plan Recently lost weight without trying: No service: No Current occupational status: retired [employer] Allergies Allergy/AdvReac Type Severity Reaction Status Date / Time codeine [CODEINE] Allergy Intermediate HEADACHES Verified 09/26/20 22:34 hydrochlorothiazide Allergy Intermediate NAUSEA & Verified 09/26/20 22:34 [HYDROCHLOROTHIAZIDE] VOMITING, low K latex [LATEX] Allergy Intermediate RASH Verified 09/26/20 22:34 lisinopril [LISINOPRIL] AdvReac Mild COUGH Verified 09/26/20 22:35 losartan [LOSARTAN] AdvReac Mild ITCHING Verified 09/26/20 22:35 Home Medications Medication Instructions Recorded Confirmed Type amlodipine 10 mg tablet 10 mg PO DAILY 09/17/20 09/26/20 History atorvastatin 40 mg tablet 40 mg PO DAILY 09/17/20 09/26/20 History cholecalciferol (vitamin D3) 25 25 mcg PO DAILY 09/17/20 09/26/20 History mcg (1,000 unit) capsule metoprolol tartrate 50 mg tablet 50 mg PO BID 09/17/20 09/26/20 History warfarin 5 mg tablet 2.5 mg PO DAILY 09/17/20 09/26/20 History losartan 1 tab PO DAILY 09/26/20 09/26/20 History Physical Exam Vital Signs: Vital Signs: Last Vital Signs Temp 98.2 F 09/27/20 07:25 Pulse 86 09/27/20 09:57 Resp 17 09/27/20 07:25 BP 152/82 H 09/27/20 09:57 Pulse Ox 96 09/27/20 07:25 Body Mass Index 32.9 Const: General: cooperative, comfortable, no acute distress, alert and awake Nutritional Appearance: overweight Orientation/consciousness: patient oriented x3 Limitations: no limitations HENMT: Head: Yes normocephalic and Yes atraumatic Eyes: General: appearance normal, both eyes and all related structures Neck: Neck: Yes trachea midline, Yes supple and Yes no JVD Chest: Chest palpation & inspection: normal inspection of the chest Resp: Effort & Inspection: normal respiratory effort Auscultation: clear to auscultation bilaterally Cardio: Jugular venous distension: no JVD Palpation: normal PMI Rate: regular rate Rhythm: regular rhythm Heart sounds: S1 normal heart sound present, S2 normal heart sound present and Other heart sounds present (S4 present) GI: Auscultation: normal bowel sounds Skin: General skin exam: no rashes or lesions noted Neuro: General: patient oriented x3 Results Labs and Meds Result diagrams: 09/27/20 04:14 09/27/20 04:14 Lab results: Laboratory Results - last 24 hr 09/26/20 09/26/20 09/26/20 21:14 21:14 21:14 WBC 8.9 RBC 5.11 Hgb 15.5 Hct 45.6 MCV 89.2 MCH 30.3 MCHC 34.0 RDW 12.7 Plt Count 229 MPV 9.8 Immature Gran % (Auto) 0.1 Neut % (Auto) 53.9 Lymph % (Auto) 36.0 [place] % (Auto) 8.0 Eos % (Auto) 1.7 Baso % (Auto) 0.3 Lymph # (Auto) 3.2 [place] # (Auto) 0.7 Eos # (Auto) 0.2 Baso # (Auto) 0.0 Abs Immat Gran (auto) 0.01 Absolute Neuts (auto) 4.8 Absolute Nucleated RBC 0.000 Nucleated RBC % (auto) 0.0 PT 19.6 H INR 1.6 H APTT 43.2 H Sodium 140 Potassium 3.8 Chloride 106 Carbon Dioxide 25 Anion Gap 13 BUN 22 H Creatinine 0.75 Estim Creat Clear Calc 56.9 Estimated GFR > 60 Random Glucose 207 H Calcium 9.3 Total Bilirubin 1.8 H Direct Bilirubin 0.6 H AST 19 ALT 16 Alkaline Phosphatase 118 H Troponin I High Sens B-Natriuretic Peptide Total Protein 7.2 Albumin 4.4 Lipase 37 Urine Color Urine Appearance Urine pH Ur Specific [place] Urine Protein Urine Glucose (UA) Urine Ketones Urine Blood Urine Nitrite Ur Leukocyte Esterase Urine RBC Urine WBC Ur Squamous Epith Cells Urine Bacteria COVID-19 (GANESH) COVID-19 Clin Com 09/26/20 09/26/20 09/26/20 21:14 21:14 21:14 WBC RBC Hgb Hct MCV MCH MCHC RDW Plt Count MPV Immature Gran % (Auto) Neut % (Auto) Lymph % (Auto) [place] % (Auto) Eos % (Auto) Baso % (Auto) Lymph # (Auto) [place] # (Auto) Eos # (Auto) Baso # (Auto) Abs Immat Gran (auto) Absolute Neuts (auto) Absolute Nucleated RBC Nucleated RBC % (auto) PT INR APTT Sodium Potassium Chloride Carbon Dioxide Anion Gap BUN Creatinine Estim Creat Clear Calc Estimated GFR Random Glucose Calcium Total Bilirubin Direct Bilirubin AST ALT Alkaline Phosphatase Troponin I High Sens 3.5 B-Natriuretic Peptide 66 Total Protein Albumin Lipase Urine Color YELLOW Urine Appearance CLEAR Urine pH 6.5 Ur Specific [place] 1.015 Urine Protein NEG Urine Glucose (UA) 100 H Urine Ketones NEG Urine Blood 1+ H Urine Nitrite NEG Ur Leukocyte Esterase NEG Urine RBC 0-2 Urine WBC 0-2 Ur Squamous Epith Cells TRACE Urine Bacteria NONE COVID-19 (GANESH) Negative COVID-19 Clin Com See Note 09/27/20 09/27/20 09/27/20 01:29 04:14 04:14 WBC 6.3 RBC 4.49 Hgb 13.3 Hct 40.2 MCV 89.5 MCH 29.6 MCHC 33.1 RDW 12.7 Plt Count 213 MPV 10.1 Immature Gran % (Auto) 0.2 Neut % (Auto) 53.2 Lymph % (Auto) 34.4 [place] % (Auto) 9.8 Eos % (Auto) 1.9 Baso % (Auto) 0.5 Lymph # (Auto) 2.2 [place] # (Auto) 0.6 Eos # (Auto) 0.1 Baso # (Auto) 0.0 Abs Immat Gran (auto) 0.01 Absolute Neuts (auto) 3.4 Absolute Nucleated RBC 0.000 Nucleated RBC % (auto) 0.0 PT 20.3 H INR 1.7 H APTT Sodium 140 Potassium 3.6 Chloride 109 H Carbon Dioxide 24 Anion Gap 11 L BUN 22 H Creatinine 0.64 Estim Creat Clear Calc 66.6 Estimated GFR > 60 Random Glucose 110 D Calcium 8.8 Total Bilirubin Direct Bilirubin AST ALT Alkaline Phosphatase Troponin I High Sens B-Natriuretic Peptide Total Protein Albumin Lipase Urine Color Urine Appearance Urine pH Ur Specific [place] Urine Protein Urine Glucose (UA) Urine Ketones Urine Blood Urine Nitrite Ur Leukocyte Esterase Urine RBC Urine WBC Ur Squamous Epith Cells Urine Bacteria COVID-19 (GANESH) COVID-19 Clin Com 09/27/20 05:47 WBC RBC Hgb Hct MCV MCH MCHC RDW Plt Count MPV Immature Gran % (Auto) Neut % (Auto) Lymph % (Auto) [place] % (Auto) Eos % (Auto) Baso % (Auto) Lymph # (Auto) [place] # (Auto) Eos # (Auto) Baso # (Auto) Abs Immat Gran (auto) Absolute Neuts (auto) Absolute Nucleated RBC Nucleated RBC % (auto) PT 21.5 H INR 1.8 H APTT Sodium Potassium Chloride Carbon Dioxide Anion Gap BUN Creatinine Estim Creat Clear Calc Estimated GFR Random Glucose Calcium Total Bilirubin Direct Bilirubin AST ALT Alkaline Phosphatase Troponin I High Sens B-Natriuretic Peptide Total Protein Albumin Lipase Urine Color Urine Appearance Urine pH Ur Specific [place] Urine Protein Urine Glucose (UA) Urine Ketones Urine Blood Urine Nitrite Ur Leukocyte Esterase Urine RBC Urine WBC Ur Squamous Epith Cells Urine Bacteria COVID-19 (GANESH) COVID-19 Clin Com Assessment and Plan (1) Paroxysmal atrial fibrillation: Status: Acute Recurrent atrial fibrillation without any clear triggers. Highly symptomatic leading to hospitalization. Will need to pursue rhythm control approach with antiarrhythmic drug therapy as she is already on metoprolol therapy. She remains symptomatic a little bit with strong heartbeat related to PACs. Will start her on Multaq 400 mg b.i.d. as an antiarrhythmic drug with her underlying structure of the heart this would be an appropriate therapy without much side effects. This was discussed with her. Given heart rate in the 80s and 90s, will continue metoprolol at current dose. Will follow up as outpatient with Holter monitor. Pathophysiology of atrial fibrillation management were discussed in details. If she persists with recurrent episodes of atrial fibrillation, may need alternative drug such as amiodarone and/or ablation. This was discussed with her. Continue warfarin therapy, however she has subtherapeutic INR. Maintain INR between 2 and 3. This is being followed by [facility]. Given that she has asymptomatic lowering of her INR, although she has very well controlled INR otherwise, consideration to switch to direct oral anticoagulant therapy should be pursued. Will follow this as an outpatient. Discharged after 2 hours after EKG with oral Multaq as long as she tolerates it. (2) HTN (hypertension): Status: Acute Hypertension, well controlled. Continue current therapy.
--- NOTE | 2020-09-27 12:55 | ECG_ITS ---
Test Reason : CP Blood Pressure : / mmHG Vent. Rate : 059 BPM Atrial Rate : 059 BPM P-R Int : 146 ms QRS Dur : 080 ms QT Int : 408 ms P-R-T Axes : 083 -13 040 degrees QTc Int : 403 ms Poor data quality, interpretation may be adversely affected Sinus bradycardia Otherwise normal ECG When compared with ECG of 26-SEP-2020 20:59, Vent. rate has decreased BY [address] no longer depressed in Inferior leads ST no longer depressed in Lateral leads T wave inversion no longer evident in Lateral leads Referred By: Carson Angelo Electronically Signed By:CARSON ANGELO MD
--- NOTE | 2020-09-27 15:02 | MHC.CM.PN ---
Patient has been medically cleared for dc to home today, no services. Last IMM addressed this morning.
--- NOTE | 2020-09-27 15:08 | PM.DS ---
DS: Providers Provider Date of admission: 09/26/20 23:01 Primary care physician: Claudia Mondragon DO Consults: 09/27/20 00:19 Consult to Cardiology Routine Consulting Provider: Carson Angelo Reason for consultation: A.fib with RVR Has provider been notified: No DS: Diagnosis Discharge Diagnosis (1) Paroxysmal atrial fibrillation: Status: Acute (2) HTN (hypertension): Status: Acute DS: Medications Discharge Medications Home Medications: Home Medications Medication Instructions Recorded Confirmed amlodipine 10 mg tablet 10 mg PO DAILY 09/17/20 09/26/20 atorvastatin 40 mg tablet 40 mg PO DAILY 09/17/20 09/26/20 cholecalciferol (vitamin D3) 25 25 mcg PO DAILY 09/17/20 09/26/20 mcg (1,000 unit) capsule metoprolol tartrate 50 mg tablet 50 mg PO BID 09/17/20 09/26/20 losartan 1 tab PO DAILY 09/26/20 09/26/20 Previous Rx's Medication Instructions Recorded dronedarone [Multaq] 400 mg PO BID #60 tab 09/27/20 warfarin 3 mg PO DAILY #30 tab 09/27/20 DS: Summary Hospital Course Hospital Course: 80-year-old female with past medical history of hypertension and paroxysmal AFib presents the hospital with complaints of palpitations. Patient reports that she was watching cell takes came when she felt her heart racing. She did not have any chest pain, no dizziness, no headache, no change in vision, no abdominal pain nausea or vomiting. No diarrhea constipation. No weakness numbness or tingling. She reports that she is usually has sensations of palpitations binge with this 1 was the lasting longer than 20 minutes. She has seen her market research manager recently and was placed on a Holter monitor. She has not had any orthopnea PND or lower extremity edema. She reports that her heart was in the 130s at home. On arrival to the ED hemodynamically stable with vitals showing heart rate of 119, Labs are significant for WBC count of 6.3, hemoglobin of 13.3 hematocrit of 40.2, PT of 20.3, INR of 1.7, sodium of 140, BUN of 22 with creatinine of 0.64. Chronically mildly elevated total bili of 1.8, UA negative. Chest x-ray negative. Past medical history: Hypertension, paroxysmal AFib on Coumadin. Hospital Course problem johnson section: Patient came with a defibrillation with RVr- Will need to pursue rhythm control approach with antiarrhythmic drug therapy as she is already on metoprolol therapy. She remains symptomatic a little bit with strong heartbeat related to PACs. Patient seen by Cardiology and patient was started on Multaq 400 mg b.i.d.. Given heart rate in the 80s and 90s, continue metoprolol at current dose. EKG repeated after Multaq seems fine. Will follow up as outpatient with Holter monitor with cardiology. Continue warfarin therapy, however she has subtherapeutic INR. Patient warfarin adjusted to 3 mg daily, last INR was 1.8 today. Patient was told to follow-up in Coumadin clinic and follow-up INR, goal INR is between 2 and 3. moniter inr outpatiently. Above management discussed with the patient in detail length she understand and in agreement with the above plan, time spent 50 minutes and 50% time spent on counseling. Significant findings: As above. Procedures performed: None. Treatment and response: As above. Complications: None. Time Spent with Patient Time attestation: Total time spent providing and/or coordinating discharge services: Physical Exam Vital Signs: Vital Signs: Last Vital Signs Temp 99.1 F 09/27/20 11:38 Pulse 57 09/27/20 11:38 Resp 16 09/27/20 11:38 BP 113/60 09/27/20 11:38 Pulse Ox 97 09/27/20 11:38 Body Mass Index 32.9 Physical exam: Constitutional: Not in distress, no new complaints HEENT: Eyes anicteric , no discharge. Cvs: rrr, [id number] , no murmur res: clear to auscultation ,no rhonchii or wheezing abd: no rebound or guarding ,nt, bs present. ext pulses present , no cyanosis neuro: axo3 , nonfocal. DS: Data Data Completed and Pending Labs on day of discharge: 09/26/20 20:54 ECG 12 lead EKG Stat EKG Documentation DIRECTED XR chest 1V Stat 09/26/20 20:55 dilTIAZem HCL [Cardizem] 20 mg IVPUSH ONCE ONE 09/26/20 21:14 B Type Natriuretic Peptide Stat Basic Metabolic Panel Stat COVID-19 ID NOW (Funez) Stat Complete Blood Count Auto Diff Stat Lipase Stat Liver Panel Stat Partial Thromboplastin Time Stat Prothrombin Time INR Stat Troponin-I High Sensitivity Stat 09/26/20 21:21 dilTIAZem HCL [Cardizem] 125 mg IVCONT .STK-MED ONE 09/26/20 22:56 Transfer Order Routine 09/27/20 01:29 Prothrombin Time INR Stat 09/27/20 04:14 Basic Metabolic Panel Routine Complete Blood Count Auto Diff Routine 09/27/20 05:47 Prothrombin Time INR DAILY 09/27/20 09:55 EKG Documentation DIRECTED 09/27/20 12:55 ECG 12 lead EKG Stat 09/27/20 16:00 Warfarin Sodium [Coumadin] 2.5 mg PO DAILY@1600 Laboratory Last Values WBC 6.3 X10*3/uL (4.8-10.8) 09/27/20 04:14 RBC 4.49 X10*6/uL (4.20-5.50) 09/27/20 04:14 Hgb 13.3 g/dl (12.0-16.0) 09/27/20 04:14 Hct 40.2 % (37-47) 09/27/20 04:14 MCV 89.5 fL (80-98) 09/27/20 04:14 MCH 29.6 pg (27.0-33.0) 09/27/20 04:14 MCHC 33.1 g/dl (31.0-35.0) 09/27/20 04:14 RDW 12.7 % (11.0-16.0) 09/27/20 04:14 Plt Count 213 X10*3/uL (160-400) 09/27/20 04:14 MPV 10.1 fL (9.4-12.3) 09/27/20 04:14 Immature Gran % (Auto) 0.2 % (0.0-0.4) 09/27/20 04:14 Neut % (Auto) 53.2 % (45-73) 09/27/20 04:14 Lymph % (Auto) 34.4 % (20-40) 09/27/20 04:14 [place] % (Auto) 9.8 % (2-11) 09/27/20 04:14 Eos % (Auto) 1.9 % (0-4) 09/27/20 04:14 Baso % (Auto) 0.5 % (0-2) 09/27/20 04:14 Lymph # (Auto) 2.2 X10*3/uL (1.2-4.9) 09/27/20 04:14 [place] # (Auto) 0.6 X10*3/uL (0.1-1.2) 09/27/20 04:14 Eos # (Auto) 0.1 X10*3/uL (0.0-0.4) 09/27/20 04:14 Baso # (Auto) 0.0 X10*3/uL (0.0-0.2) 09/27/20 04:14 Abs Immat Gran (auto) 0.01 X10*3/uL (0.00-0.03) 09/27/20 04:14 Absolute Neuts (auto) 3.4 X10*3/uL (2.0-8.3) 09/27/20 04:14 Absolute Nucleated RBC 0.000 X10*3/uL (0.0-0.012) 09/27/20 04:14 Nucleated RBC % (auto) 0.0 /100WBC (0.0-0.2) 09/27/20 04:14 PT 21.5 SEC (10.8-13.0) H 09/27/20 05:47 INR 1.8 (0.9-1.1) H 09/27/20 05:47 APTT 43.2 SEC (24.1-38.0) H 09/26/20 21:14 Sodium 140 mmol/L (135-145) 09/27/20 04:14 Potassium 3.6 mmol/l (3.3-5.1) 09/27/20 04:14 Chloride 109 mmol/L (96-108) H 09/27/20 04:14 Carbon Dioxide 24 mmol/L (22-29) 09/27/20 04:14 Anion Gap 11 (12-20) L 09/27/20 04:14 BUN 22 mg/dL (9-16) H 09/27/20 04:14 Creatinine 0.64 mg/dL (0.5-1.4) 09/27/20 04:14 Estim Creat Clear Calc 66.6 09/27/20 04:14 Estimated GFR > 60 09/27/20 04:14 Random Glucose 110 mg/dL (60-115) D 09/27/20 04:14 Calcium 8.8 mg/dL (8.4-10.2) 09/27/20 04:14 Total Bilirubin 1.8 mg/dL (0.0-1.0) H 09/26/20 21:14 Direct Bilirubin 0.6 mg/dL (0.0-0.5) H 09/26/20 21:14 AST 19 U/L (5-31) 09/26/20 21:14 ALT 16 U/L (0-31) 09/26/20 21:14 Alkaline Phosphatase 118 U/L (39-117) H 09/26/20 21:14 Troponin I High Sens 3.5 ng/L (<3.5-17.0) 09/26/20 21:14 B-Natriuretic Peptide 66 pg/mL (<100) 09/26/20 21:14 Total Protein 7.2 g/dL (6.5-8.0) 09/26/20 21:14 Albumin 4.4 g/dL (3.5-5.0) 09/26/20 21:14 Lipase 37 U/L (8-78) 09/26/20 21:14 Urine Color YELLOW 09/26/20 21:14 Urine Appearance CLEAR 09/26/20 21:14 Urine pH 6.5 (5.0-8.0) 09/26/20 21:14 Ur Specific [place] 1.015 (1.005-1.025) 09/26/20 21:14 Urine Protein NEG MG/DL (NEG-TRACE) 09/26/20 21:14 Urine Glucose (UA) 100 MG/DL (NEG) H 09/26/20 21:14 Urine Ketones NEG MG/DL (NEG) 09/26/20 21:14 Urine Blood 1+ (NEG) H 09/26/20 21:14 Urine Nitrite NEG (NEG) 09/26/20 21:14 Ur Leukocyte Esterase NEG (NEG) 09/26/20 21:14 Urine RBC 0-2 /HPF (0) 09/26/20 21:14 Urine WBC 0-2 /HPF (0-4) 09/26/20 21:14 Ur Squamous Epith Cells TRACE /LPF 09/26/20 21:14 Urine Bacteria NONE /LPF 09/26/20 21:14 COVID-19 (GANESH) Negative (Negative) 09/26/20 21:14 COVID-19 Clin Com See Note 09/26/20 21:14 Discharge Plan Discharge Patient Disposition: Home, Self-Care Referrals: Claudia Zamora DO [Primary Care Provider] - Discharge Medications: New Multaq 400 mg Tablet 400 mg PO BID Qty: 60 RF: 0 warfarin 3 mg tablet 3 mg PO DAILY Qty: 30 RF: 0 Continued losartan 50 mg tablet 1 tab PO DAILY RF: 0 amlodipine 10 mg tablet 10 mg PO DAILY RF: 0 metoprolol tartrate 50 mg tablet 50 mg PO BID RF: 0 atorvastatin 40 mg tablet 40 mg PO DAILY RF: 0 cholecalciferol (vitamin D3) 25 mcg (1,000 unit) capsule 25 mcg PO DAILY RF: 0 Discontinued warfarin 5 mg tablet 2.5 mg PO DAILY RF: 0 Discharge Orders: Discharge Order (Routine); Ordered 09/27/20 Ordered By: Veda Sandres Diet: advance to usual diet Activity on Discharge: As tolerated Other Ambulatory Orders: Prothrombin Time INR (Routine) Timeframe: 3 Days Facility: [facility] - Location: Laboratory Ordered By: Veda Sanders Visit Report Forms: Patient Portal Discharge page Care Plan Goals: Patient came with atrial fibrillation with RVR: Subsequently was seen by Cardiology: started on multaq and will continue her home metoprolol dose : Further management outpatient as per PCP and Cardiology. In addition her INR was slightly subtherapeutic in 1.8 range, her warfarin dose is increased to 3 mg daily, monitor INR outpatient with PCP and further management accordingly. Health Concerns: As above. Plan of Treatment: As above.
[2020-09-27] MEDS: Warfarin Sodium 3 MG TABLET PO (15:42)
== END 2020-09-27 15:57 | disposition home or self-care (01) | DRG 310 ==
LOC: HO.ED 22:27 → HO.IMC 23:28
PROVIDERS: Admitting Provider Internal Medicine; Emergency Provider Emergency Medicine; PCP Internal Medicine; Visit Provider Internal Medicine
DX: I48.0 Paroxysmal atrial fibrillation (principal); I10 Essential (primary) hypertension; R79.1 Abnormal coagulation profile; Z20.828 Contact with and (suspected) exposure to other viral communicable diseases; Z88.5 Allergy status to narcotic agent; Z79.01 Long term (current) use of anticoagulants; Z79.899 Other long term (current) drug therapy
CPT/HCPCS: 36415; 71045; 80048; 80076; 81001; 83690; 83880; 84484; 85025; 85610; 85730; 87635; 93005; 99285; 99291

== ENCOUNTER → 2020-10-11 12:26 | Outpatient (BNVA) | payer MEDICARE, SELFPAY | PROVIDERS: PCP Internal Medicine; Visit Provider Internal Medicine Cardiovascular Disease | DX: I48.0 Paroxysmal atrial fibrillation (principal); I10 Essential (primary) hypertension; R00.1 Bradycardia, unspecified | CPT/HCPCS: 93005; 99212 ==

== ENCOUNTER 2020-10-26 05:47 | Emergency (ER) | payer MEDICARE, SELFPAY ==
[2020-10-26 06:04] VITALS: BP 141/69; BP 145/54; PULSE 63; PULSE 70; RESP 18; TEMP 36.1; O2SAT 97; O2SAT 98; BMI 31.8
--- NOTE | 2020-10-26 06:09 | ECG_ITS ---
Test Reason : PALPATATIONS Blood Pressure : / mmHG Vent. Rate : 061 BPM Atrial Rate : 061 BPM P-R Int : 156 ms QRS Dur : 082 ms QT Int : 440 ms P-R-T Axes : 012 -16 021 degrees QTc Int : 442 ms Normal sinus rhythm Minimal voltage criteria for LVH, may be normal variant Borderline ECG When compared with ECG of 27-SEP-2020 13:33, No significant change was found Referred By: Narinder Dupont Electronically Signed By:Cedric Navarrete
--- NOTE | 2020-10-26 07:00 | ED.ARRPALP ---
HPI - Arrhythmia/Palpitations General Chief Complaint: Arrhythmia/Palpitations Stated Complaint: FAST HR 112-150,? DUE TO NEW MED Time Seen by Provider: 10/26/20 05:54 Source: patient and EMS Mode of arrival: EMS Limitations: no limitations History of Present Illness HPI narrative: Patient comes to the emergency room complaining of palpitations. Patient states she has history of atrial fibrillation, on Coumadin and on Multaq. Patient states today at 01:00 she started feeling palpitations, intermittent. Patient's heart rate was up to the 160s, called EMS. EMS confirms a heart rate 160. Patient states that prior to their arrival she took 1 tablet of 25 mg of metoprolol tartrate and amlodipine. EMS gave her 1 L of normal saline, by the time the patient arrived to emergency room, patient was asymptomatic, with a heart rate of 70 and with a blood pressure of 141/69. Patient denies chest pain, no shortness of breath, no diaphoresis. Only palpitations, which are now resolved. Related Data Home Medications Medication Instructions Recorded Confirmed amlodipine 10 mg tablet 10 mg PO DAILY 09/17/20 10/11/20 atorvastatin 40 mg tablet 40 mg PO DAILY 09/17/20 10/11/20 cholecalciferol (vitamin D3) 25 25 mcg PO DAILY 09/17/20 10/11/20 mcg (1,000 unit) capsule losartan 1 tab PO DAILY 09/26/20 10/11/20 metoprolol tartrate 50 mg tablet 25 mg PO BID tab 10/11/20 10/11/20 Previous Rx's Medication Instructions Recorded dronedarone [Multaq] 400 mg PO BID #60 tab 09/27/20 warfarin 3 mg PO DAILY #30 tab 09/27/20 spironolactone 25 mg tablet 25 mg PO DAILY #30 tab 10/11/20 Allergies Allergy/AdvReac Type Severity Reaction Status Date / Time codeine [CODEINE] Allergy Intermediate HEADACHES Verified 09/26/20 22:34 hydrochlorothiazide Allergy Intermediate NAUSEA & Verified 09/26/20 22:34 [HYDROCHLOROTHIAZIDE] VOMITING, low K latex [LATEX] Allergy Intermediate RASH Verified 09/26/20 22:34 lisinopril [LISINOPRIL] AdvReac Mild COUGH Verified 09/26/20 22:35 losartan [LOSARTAN] AdvReac Mild ITCHING Verified 09/26/20 22:35 Review of Systems Review of Systems: Constitutional : No Weight loss, No Fever, No Chills, No Night Sweats, No Fatigue, No Malaise ENT/Mouth : No Hearing loss, No Ear Pain, No Nasal Congestion, No Sinus Pain, No Hoarseness, No sore throat, No Rhinorrhea, No Swallowing Difficulty Eyes: No Eye Pain, No Swelling, No Redness, No Foreign Body, No Discharge, No Vision Changes Cardiovascular : No Chest Pain, No SOB, No Dyspnea on Exertion, No Orthopnea, No Edema, complaining of Palpitations Respiratory : No Cough, No Sputum, No Wheezing, No Smoke Exposure, No Dyspnea Gastrointestinal : No Nausea, No Vomiting, No Diarrhea, No Constipation, No abdominal Pain, No Hematochezia, No Melena Genitourinary : no irregular bleeding, No Dysuria, No Urinary Frequency, No Hematuria, No Urinary Incontinence, No Urgency, No Flank Pain, No Urinary Flow Changes, No Hesitancy Musculoskeletal : No joint pain, No Myalgias, No Joint Swelling Skin : No Skin Lesions, No rash Neuro : No Weakness, No Numbness, No Paresthesias, No Loss of Consciousness, No Dizziness, No Headache Psych : No Anxiety/Panic, No Depression, No SI/HI/AH/VH, No Social Issues, Heme/Lymph: No Bruising, No Bleeding,No Lymphadenopathy Endocrine : No Polyuria, No Polydipsia, No Temperature Intolerance [facility] Past Medical History Medical History HTN (hypertension) Paroxysmal atrial fibrillation Sinus bradycardia Surgical History Hx of tubal ligation Family History Family History Father CVD (cardiovascular disease) Mother CVD (cardiovascular disease) Diabetes Social History Social History Household Members: Family Housing: House Alcohol intake: never Smoking Status: Never smoker Use of substances other than those prescribed or required for medical reasons: No Advance Directives: No Advance Directives Information Provided: No service: No Current occupational status: retired Physical Exam Vital Signs: Vital Signs: Last Vital Signs Temp 97.0 F 10/26/20 06:04 Pulse 63 10/26/20 06:04 Resp 18 10/26/20 06:04 BP 141/69 H 10/26/20 06:04 Pulse Ox 98 10/26/20 06:04 Body Mass Index 31.8 Appearance: Alert. Oriented X3. No acute distress. Well-appearing Eyes: Pupils equal, round and reactive to light. ENT: Pharynx normal. Neck: Normal inspection. Neck supple. No lymph nodes noted. No crepitus CVS: Normal heart rate and rhythm. Pulses normal. Normal S1 and S2 Respiratory: No respiratory distress. Breath sounds normal. No Wheezing. No rales Abdomen: Soft and nontender. No rigidity. No distention. good BS x4 Skin: Skin warm and dry. Normal skin color. Normal skin turgor. Extremities: No lower extremity edema. No lower extremity edema. No Lacerations. No Rash Neuro: Oriented X 3. No motor deficit. No sensory deficit. Moving all extermities. No slurred speech. Course Course Course Narrative: By the time the patient arrived to emergency room, patient's heart rate was in the 70s. EKG showed sinus rhythm. Patient asymptomatic. Reviewing patient's floor broker's notes, Dr. Angelo recommended to possibly change the patient's current medication Multaq to amiodarone. Patient labs pending. Sign-out given to Dr. Dupont. Once the labs result, please call Dr. Angelo or Cardiology on-call to discuss if the patient should continue Multaq or switch to amiodarone MDM - Arrhythmia/Palpitations ECG Data Attestation: I personally reviewed and interpreted this ECG as follows: (Sinus rhythm, heart rate 61, no ST segment depression or elevation, QTC 442) Discharge Plan Discharge Clinical Impression: Atrial fibrillation with RVR Prescriptions: No Action losartan 50 mg tablet 1 tab PO DAILY RF: 0 Multaq 400 mg Tablet 400 mg PO BID Qty: 60 RF: 0 warfarin 3 mg tablet 3 mg PO DAILY Qty: 30 RF: 0 amlodipine 10 mg tablet 10 mg PO DAILY RF: 0 atorvastatin 40 mg tablet 40 mg PO DAILY RF: 0 cholecalciferol (vitamin D3) 25 mcg (1,000 unit) capsule 25 mcg PO DAILY RF: 0 metoprolol tartrate 50 mg tablet 25 mg PO BID RF: 0 spironolactone [Aldactone] 25 mg tablet 25 mg PO DAILY Qty: 30 RF: 5
--- NOTE | 2020-10-26 07:10 | XR_ITS ---
EXAMINATION: XR CHEST CLINICAL INFORMATION: Respiratory symptoms, assess for pulmonary edema. COMPARISON: Radiographs chest 09/26/2020, 05/02/2020, 07/03/2019 TECHNIQUE: Portable upright AP view of the chest was obtained. FINDINGS: The heart is within normal size and the vascularity is normal. There is no vascular congestion, edema, groundglass opacity, or effusion. The hilar and mediastinal contours and bony structures are unremarkable. XR/XR chest 1V IMPRESSION: Unremarkable examination.
[2020-10-26 07:59] LABS: MANUAL DIFF FLAG NO
[2020-10-26 08:06] LABS: Basophils Absolute Auto 0.1 X10*3/uL (0.0-0.2); Basophils Percent Auto 0.5 % (0-2); Eosinophils Absolute Auto 0.1 X10*3/uL (0.0-0.4); Eosinophils Percent Auto 1.1 % (0-4); Hematocrit 44.7 % (37-47); Hemoglobin 14.9 g/dl (12.0-16.0); INTERNATIONAL NORM RATIO 2.1 (0.9-1.1); Imm Gran Abs Auto 0.03 X10*3/uL (0.00-0.03); Imm Gran Pct Auto 0.3 % (0.0-0.4); Lymphocytes Absolute Auto 1.8 X10*3/uL (1.2-4.9); Lymphocytes Percent Auto 18.5 % (20-40); Mean Corpuscular HGB Conc 33.3 g/dl (31.0-35.0); Mean Corpuscular Volume 89.9 fL (80-98); Mean Platelet Volume 9.8 fL (9.4-12.3); Monocytes Absolute Auto 0.7 X10*3/uL (0.1-1.2); Monocytes Percent Auto 7.3 % (2-11); Neutrophils Percent Auto 72.3 % (45-73); Platelet Count 252 X10*3/uL (160-400); Prothrombin Time 25.4 SEC (10.8-13.0); Red Blood Count 4.97 X10*6/uL (4.20-5.50); Red Cell Distribution Width 12.7 % (11.0-16.0); White Blood Count 9.7 X10*3/uL (4.8-10.8)
[2020-10-26 08:16] VITALS: BP 123/59; PULSE 54; RESP 17; TEMP 36.4; O2SAT 97
[2020-10-26 08:19] LABS: Anion Gap 12 (12-20); Blood Urea Nitrogen 19 mg/dL (9-16); Calcium 9.2 mg/dL (8.4-10.2); Carbon Dioxide 26 mmol/L (22-29); Chloride 106 mmol/L (96-108); Creatinine Clr Calc Pharmacy 55.2; Estimated Glomerular Filt Rate > 60; Glucose Random 109 mg/dL (60-115); Potassium 3.9 mmol/l (3.3-5.1); Sodium 140 mmol/L (135-145)
[2020-10-26 08:27] LABS: B Type Natriuretic Peptide 91 pg/mL (<100)
[2020-10-26 08:42] LABS: TSH reflex Free T4 1.15 mIU/mL (0.32-4.0)
== END 2020-10-26 10:24 | disposition home or self-care (01) ==
PROVIDERS: Emergency Medicine; Emergency Provider Internal Medicine; PCP Internal Medicine
DX: I48.20 Chronic atrial fibrillation, unspecified (principal); I10 Essential (primary) hypertension; Z79.01 Long term (current) use of anticoagulants
CPT/HCPCS: 36415; 71045; 80048; 83880; 84443; 84484; 85025; 85610; 93005; 99283; 99285

== ENCOUNTER 2020-10-29 08:07 | Outpatient (REF) | payer MEDICARE, SELFPAY ==
[2020-10-29 09:03] LABS: Anion Gap 10 (12-20); Blood Urea Nitrogen 15 mg/dL (9-16); Calcium 9.1 mg/dL (8.4-10.2); Carbon Dioxide 26 mmol/L (22-29); Chloride 108 mmol/L (96-108); Estimated Glomerular Filt Rate > 60; Glucose Random 105 mg/dL (60-115); Sodium 140 mmol/L (135-145)
== END 2020-10-29 08:08 | disposition home or self-care (01) ==
LOC: HO.LAB 08:07
PROVIDERS: PCP Internal Medicine; Visit Provider Internal Medicine Cardiovascular Disease
DX: I10 Essential (primary) hypertension (principal)
CPT/HCPCS: 36415; 80048

== ENCOUNTER → 2020-11-20 09:52 | Outpatient (BNVA) | payer MEDICARE, SELFPAY | PROVIDERS: PCP Internal Medicine; Visit Provider Internal Medicine Cardiovascular Disease | DX: R00.2 Palpitations (principal); I48.0 Paroxysmal atrial fibrillation; I10 Essential (primary) hypertension | CPT/HCPCS: 93005; 99212 ==

== ENCOUNTER 2020-12-03 18:27 | Emergency (ER) | payer MEDICARE, SELFPAY ==
--- NOTE | ~2020-12-03 | XR_ITS ---
EXAMINATION: XR CHEST CLINICAL INFORMATION: Palpitations COMPARISON: 10/26/2020 TECHNIQUE: 2 views of the chest were obtained. FINDINGS: No significant abnormality is noted involving the heart, lungs, mediastinum, bony thorax or soft tissues. XR/XR chest 2V IMPRESSION: Unremarkable examination.
--- NOTE | 2020-12-03 18:29 | ECG_ITS ---
Test Reason : PAPLPITATION Blood Pressure : / mmHG Vent. Rate : 060 BPM Atrial Rate : 060 BPM P-R Int : 156 ms QRS Dur : 088 ms QT Int : 462 ms P-R-T Axes : 019 -16 024 degrees QTc Int : 462 ms Normal sinus rhythm Moderate voltage criteria for LVH, may be normal variant Nonspecific ST abnormality Abnormal ECG When compared with ECG of 26-OCT-2020 06:09, No significant change was found Referred By: Generic ED Physician Electronically Signed By:CANDIS GREEN
[2020-12-03 18:31] VITALS: BP 131/71; PULSE 66; RESP 18; TEMP 36.3; O2SAT 98; BMI 31.1
[2020-12-03 18:50] LABS: MANUAL DIFF FLAG NO
[2020-12-03 19:03] LABS: INTERNATIONAL NORM RATIO 2.4 (0.9-1.1); Prothrombin Time 29.3 SEC (10.8-13.0)
[2020-12-03 19:05] LABS: Basophils Absolute Auto 0.1 X10*3/uL (0.0-0.2); Basophils Percent Auto 0.6 % (0-2); Eosinophils Absolute Auto 0.3 X10*3/uL (0.0-0.4); Eosinophils Percent Auto 3.9 % (0-4); Hematocrit 43.4 % (37-47); Imm Gran Abs Auto 0.02 X10*3/uL (0.00-0.03); Imm Gran Pct Auto 0.2 % (0.0-0.4); Lymphocytes Absolute Auto 3.2 X10*3/uL (1.2-4.9); Lymphocytes Percent Auto 39.9 % (20-40); Mean Corpuscular HGB Conc 34.6 g/dl (31.0-35.0); Mean Corpuscular Hemoglobin 30.6 pg (27.0-33.0); Mean Corpuscular Volume 88.6 fL (80-98); Mean Platelet Volume 10.4 fL (9.4-12.3); Monocytes Absolute Auto 0.7 X10*3/uL (0.1-1.2); Neutrophils Absolute Auto 3.8 X10*3/uL (2.0-8.3); Neutrophils Percent Auto 46.4 % (45-73); Platelet Count 217 X10*3/uL (160-400); Red Cell Distribution Width 13.2 % (11.0-16.0); White Blood Count 8.1 X10*3/uL (4.8-10.8)
[2020-12-03 19:22] LABS: Anion Gap 14 (12-20); Blood Urea Nitrogen 19 mg/dL (9-16); Calcium 9.2 mg/dL (8.4-10.2); Carbon Dioxide 25 mmol/L (22-29); Chloride 103 mmol/L (96-108); Creatinine Clr Calc Pharmacy 43.2; Estimated Glomerular Filt Rate 56; Glucose Random 132 mg/dL (60-115); Potassium 3.6 mmol/L (3.3-5.1); Sodium 138 mmol/L (135-145)
[2020-12-03 19:27] LABS: Troponin-I High Sensitivity < 3.5 ng/L (<3.5-17.0)
[2020-12-03 22:02] VITALS: BP 141/66; PULSE 86; RESP 18; O2SAT 98
[2020-12-03 22:29] VITALS: PULSE 65
--- NOTE | 2020-12-03 22:57 | ED_ITS ---
HPI - Arrhythmia/Palpitations General Chief Complaint: Arrhythmia/Palpitations Stated Complaint: palpitations Time Seen by Provider: 12/03/20 22:36 Source: patient Mode of arrival: ambulatory History of Present Illness HPI narrative: This is an 80-year-old female with history of AFib on Coumadin who presents with concerns of palpitations and feeling like she had a rapid heart rate. This was not associated with any dizziness, shortness of breath, chest pain, nausea, or diaphoresis. She states she then took her routine medications, but states that the heart rate continued so she came into the emergency department she laughs and states that everything settle down while she was in the waiting room. At this time she is asymptomatic. She denies any recent cough, fevers, chills, urinary pain/burning/frequency, or GI symptoms. Related Data Home Medications Medication Instructions Recorded Confirmed amlodipine 10 mg tablet 10 mg PO DAILY 09/17/20 11/20/20 atorvastatin 40 mg tablet 40 mg PO DAILY 09/17/20 11/20/20 cholecalciferol (vitamin D3) 25 25 mcg PO DAILY 09/17/20 11/20/20 mcg (1,000 unit) capsule losartan 1 tab PO DAILY 09/26/20 11/20/20 metoprolol tartrate 50 mg tablet 25 mg PO BID tab 10/11/20 11/20/20 Previous Rx's Medication Instructions Recorded warfarin 3 mg PO DAILY #30 tab 09/27/20 dronedarone 400 mg tablet 400 mg PO BID 30 Days #60 tab 10/31/20 Allergies Allergy/AdvReac Type Severity Reaction Status Date / Time codeine [CODEINE] Allergy Intermediate HEADACHES Verified 09/26/20 22:34 hydrochlorothiazide Allergy Intermediate NAUSEA & Verified 09/26/20 22:34 [HYDROCHLOROTHIAZIDE] VOMITING, low K latex [LATEX] Allergy Intermediate RASH Verified 09/26/20 22:34 lisinopril [LISINOPRIL] AdvReac Mild COUGH Verified 09/26/20 22:35 Review of Systems Review of Systems: Pertinent positives and negatives as stated in HPI and 10 point review of systems is otherwise negative. [facility] Past Medical History Source: nursing notes reviewed Medical History HTN (hypertension) Paroxysmal atrial fibrillation Sinus bradycardia Surgical History Hx of tubal ligation Family History Family History Father CVD (cardiovascular disease) Mother CVD (cardiovascular disease) Diabetes Social History Social History Household Members: Family Housing: House Alcohol intake: never Smoking Status: Never smoker Use of substances other than those prescribed or required for medical reasons: No Advance Directives: No Advance Directives Information Provided: Yes service: No Current occupational status: retired Physical Exam Vital Signs: Vital Signs: Last Vital Signs Temp 97.4 F 12/03/20 18:31 Pulse 86 12/03/20 22:02 Resp 18 12/03/20 22:02 BP 141/66 H 12/03/20 22:02 Pulse Ox 98 12/03/20 22:02 Body Mass Index 31.1 VITAL SIGNS: Reviewed. GENERAL: Well developed, well nourished, in no acute distress. HEAD: Normocephalic/atraumatic NOSE: Nares patent bilateral OROPHARYNX: no oral lesions noted, posterior pharynx clear NECK: Supple, no adenopathy LUNGS: Normal breath sounds. No adventitious sounds or accessory muscle use. SpO2<98> CARDIOVASCULAR: Regular rate and rhythm without noted murmurs ABDOMEN: Soft, non-tender, non-distended with bowel sounds. NEUROLOGIC: Alert and oriented x 4. Course Course Course Narrative: This is an 80-year-old female with history and clinical presentation consistent with an episode atrial fibrillation with RVR and on review of all investigations there is no evidence of infection, anemia, arrhythmia (EKG demonstrates normal sinus rhythm), and patient was reassured and provided the results at bedside. She was encouraged to follow up with her primary care by calling in the morning, but is otherwise discharged in stable condition with appropriate response to her prescribed medications. MDM - Arrhythmia/Palpitations Lab Data Result diagrams: 12/03/20 18:45 12/03/20 18:45 Labs: Lab Results 12/03/20 12/03/20 12/03/20 Range/Units 18:44 18:45 18:45 WBC 8.1 (4.8-10.8) X10*3/uL RBC 4.90 (4.20-5.50) X10*6/uL Hgb 15.0 (12.0-16.0) g/dl Hct 43.4 (37-47) % MCV 88.6 (80-98) fL MCH 30.6 (27.0-33.0) pg MCHC 34.6 (31.0-35.0) g/dl RDW 13.2 (11.0-16.0) % Plt Count 217 (160-400) X10*3/uL MPV 10.4 (9.4-12.3) fL Immature Gran % (Auto) 0.2 (0.0-0.4) % Neut % (Auto) 46.4 (45-73) % Lymph % (Auto) 39.9 (20-40) % [place] % (Auto) 9.0 (2-11) % Eos % (Auto) 3.9 (0-4) % Baso % (Auto) 0.6 (0-2) % Lymph # (Auto) 3.2 (1.2-4.9) X10*3/uL [place] # (Auto) 0.7 (0.1-1.2) X10*3/uL Eos # (Auto) 0.3 (0.0-0.4) X10*3/uL Baso # (Auto) 0.1 (0.0-0.2) X10*3/uL Abs Immat Gran (auto) 0.02 (0.00-0.03) X10*3/uL Absolute Neuts (auto) 3.8 (2.0-8.3) X10*3/uL Absolute Nucleated RBC 0.000 (0.0-0.012) X10*3/uL Nucleated RBC % (auto) 0.0 (0.0-0.2) /100WBC PT 29.3 H (10.8-13.0) SEC INR 2.4 H (0.9-1.1) Sodium 138 (135-145) mmol/L Potassium 3.6 (3.3-5.1) mmol/L Chloride 103 (96-108) mmol/L Carbon Dioxide 25 (22-29) mmol/L Anion Gap 14 (12-20) BUN 19 H (9-16) mg/dL Creatinine 0.96 (0.5-1.4) mg/dL Estim Creat Clear Calc 43.2 Estimated GFR 56 Random Glucose 132 H (60-115) mg/dL Calcium 9.2 (8.4-10.2) mg/dL Troponin I High Sens (<3.5-17.0) ng/L 12/03/20 Range/Units 18:45 WBC (4.8-10.8) X10*3/uL RBC (4.20-5.50) X10*6/uL Hgb (12.0-16.0) g/dl Hct (37-47) % MCV (80-98) fL MCH (27.0-33.0) pg MCHC (31.0-35.0) g/dl RDW (11.0-16.0) % Plt Count (160-400) X10*3/uL MPV (9.4-12.3) fL Immature Gran % (Auto) (0.0-0.4) % Neut % (Auto) (45-73) % Lymph % (Auto) (20-40) % [place] % (Auto) (2-11) % Eos % (Auto) (0-4) % Baso % (Auto) (0-2) % Lymph # (Auto) (1.2-4.9) X10*3/uL [place] # (Auto) (0.1-1.2) X10*3/uL Eos # (Auto) (0.0-0.4) X10*3/uL Baso # (Auto) (0.0-0.2) X10*3/uL Abs Immat Gran (auto) (0.00-0.03) X10*3/uL Absolute Neuts (auto) (2.0-8.3) X10*3/uL Absolute Nucleated RBC (0.0-0.012) X10*3/uL Nucleated RBC % (auto) (0.0-0.2) /100WBC PT (10.8-13.0) SEC INR (0.9-1.1) Sodium (135-145) mmol/L Potassium (3.3-5.1) mmol/L Chloride (96-108) mmol/L Carbon Dioxide (22-29) mmol/L Anion Gap (12-20) BUN (9-16) mg/dL Creatinine (0.5-1.4) mg/dL Estim Creat Clear Calc Estimated GFR Random Glucose (60-115) mg/dL Calcium (8.4-10.2) mg/dL Troponin I High Sens < 3.5 (<3.5-17.0) ng/L ECG Data Attestation: I personally reviewed and interpreted this ECG as follows: Prior ECG tracings: available for review (10/26/2020 no acute changes on comparison.) Interpretation: Sinus rhythm, HR -60, no evidence of acute ischemia, HI/QRS/QTC are within normal limits. Discharge Plan Discharge Clinical Impression: Paroxysmal atrial fibrillation Patient Disposition: Home, Self-Care Instructions: A-fib (Atrial Fibrillation) (ED) Additional Instructions: Resume all home medications as prescribed. Please follow-up with your primary care provider in the morning. Do not hesitate to return to the emergency department should you develop any acute worsening of your symptoms. Prescriptions: No Action Multaq 400 mg tablet 400 mg PO BID 30 Days Qty: 60 RF: 1 losartan 50 mg tablet 1 tab PO DAILY RF: 0 warfarin 3 mg tablet 3 mg PO DAILY Qty: 30 RF: 0 amlodipine 10 mg tablet 10 mg PO DAILY RF: 0 atorvastatin 40 mg tablet 40 mg PO DAILY RF: 0 cholecalciferol (vitamin D3) 25 mcg (1,000 unit) capsule 25 mcg PO DAILY RF: 0 metoprolol tartrate 50 mg tablet 25 mg PO BID RF: 0 Referrals: Physician,Unknown [Primary Care Provider] - 2 days
== END 2020-12-03 23:10 | disposition home or self-care (01) ==
PROVIDERS: Emergency Provider Student in an Organized Health Care Education/Training Program
DX: I48.0 Paroxysmal atrial fibrillation (principal); I10 Essential (primary) hypertension; Z79.01 Long term (current) use of anticoagulants
CPT/HCPCS: 36415; 71046; 80048; 84484; 85025; 85610; 93005; 99283; 99284

== ENCOUNTER 2020-12-26 11:38 | Outpatient (REF) | payer MEDICARE, SELFPAY ==
[2020-12-26 11:42] VITALS: BP 160/70; PULSE 65; RESP 18; TEMP 36.5; O2SAT 96; BMI 31.1
--- NOTE | 2020-12-26 12:56 | MHC.SHP ---
Pre-Procedural Eval Section A The patient is an INPATIENT: No Changes since office visit: Yes Patient answered all questions; No Cold of Flu in the past 2 weeks, No New Medical Problems and No Changes in Medication The History & Physical has been completed within 30 days and I have reviewed it.: Yes Section B Chief Complaint: a-fib Allergies: Allergies Allergy/AdvReac Type Severity Reaction Status Date / Time codeine [CODEINE] Allergy Intermediate HEADACHES Verified 09/26/20 22:34 hydrochlorothiazide Allergy Intermediate NAUSEA & Verified 09/26/20 22:34 [HYDROCHLOROTHIAZIDE] VOMITING, low K latex [LATEX] Allergy Intermediate RASH Verified 09/26/20 22:34 lisinopril [LISINOPRIL] AdvReac Mild COUGH Verified 09/26/20 22:35 Plan I have reviewed the history and physical and performed a pertinent physical examination on my patient. No changes have occurred unless specified.
--- NOTE | 2020-12-26 12:57 | P.BOP_ITS ---
Brief Operative Note Date of Service: 12/26/20 Pre-op diagnosis: Paroxysmal atrial fibrillation with persistent palpitations Procedure: Implantable loop recorder placement Implants: After obtaining full informed consent patient brought to the minor surgery suite. Patient was then laid in a supine position. Her precordial area was then prepped and draped in a sterile fashion. Patient was then injected with 2% lidocaine with epinephrine intradermally and subcutaneously. A [employer] LINQ implantable loop recorder was then placed subcutaneously using Seldinger technique. Serial number [id number]. Measured R-wave 0.59 mV Surgeon: Carson Angelo MD Anesthesia: local Estimated blood loss (mL): 2 Pathology: none sent Condition: stable Disposition: same day
== END 2020-12-26 11:39 | disposition home or self-care (01) ==
LOC: HO.MS 11:38
PROVIDERS: Visit Provider Internal Medicine Cardiovascular Disease
PROC: (CPT 33285; principal; 2020-12-26 12:00)
DX: I48.0 Paroxysmal atrial fibrillation (principal); I10 Essential (primary) hypertension; Z79.01 Long term (current) use of anticoagulants; Z79.899 Other long term (current) drug therapy; Z91.040 Latex allergy status; Z88.8 Allergy status to other drugs, medicaments and biological substances
CPT/HCPCS: 33285; C1764

== ENCOUNTER → 2021-01-03 10:31 | Outpatient (BNVA) | payer MEDICARE, SELFPAY | PROVIDERS: Visit Provider Nurse Practitioner Family | DX: Z51.89 Encounter for other specified aftercare (principal); I48.0 Paroxysmal atrial fibrillation; I10 Essential (primary) hypertension; Z98.890 Other specified postprocedural states; Z79.899 Other long term (current) drug therapy | CPT/HCPCS: 99212 ==

== ENCOUNTER 2021-01-16 10:48 | Outpatient (REF) | payer MEDICARE, SELFPAY ==
[2021-01-16 11:08] LABS: COVID-19 Test Negative (Negative); IDNOW Serial# 55D5AD1C
== END 2021-01-16 10:49 | disposition home or self-care (01) ==
LOC: HO.LAB 10:48
PROVIDERS: Visit Provider Internal Medicine
DX: Z20.822 Contact with and (suspected) exposure to COVID-19 (principal)
CPT/HCPCS: 36415; 87635; C9803

== ENCOUNTER 2021-01-21 10:15 | Outpatient (REF) | payer MEDICARE, SELFPAY ==
[2021-01-21 10:43] LABS: COVID-19 Test Negative (Negative); IDNOW Serial# 55D5AD1C
== END 2021-01-21 10:16 | disposition home or self-care (01) ==
LOC: HO.LAB 10:15
PROVIDERS: Visit Provider Internal Medicine
DX: Z20.822 Contact with and (suspected) exposure to COVID-19 (principal)
CPT/HCPCS: 36415; 87635; C9803

== ENCOUNTER 2021-01-25 08:10 | Emergency (ER) | payer MEDICARE, SELFPAY ==
--- NOTE | ~2021-01-25 | XR_ITS ---
EXAMINATION: CHEST 1 VIEW CLINICAL INFORMATION: Palpitations. COMPARISON: December 03, 2020. TECHNIQUE: An AP view of the chest is provided. FINDINGS: The cardiac silhouette is not enlarged. The mediastinal and hilar contours are unremarkable. There are neither pleural effusions nor pneumothoraces. There are no consolidations. The osseous structures are stable. XR/XR chest 1V IMPRESSION: No evidence for acute disease.
--- NOTE | ~2021-01-25 | CT_ITS ---
EXAMINATION: CT ABDOMEN AND PELVIS WITH CONTRAST CLINICAL INFORMATION: upper abdominal and RUQ pain s/p lap [place] 12/11 COMPARISON: 04/03/2020 TECHNIQUE: Multidetector volumetric images were obtained from the superior aspect of the liver through the pubic symphysis following administration 85 mL of Omnipaque 350 intravenous contrast. Sagittal and coronal reformatted images were obtained on the technologist's workstation. Oral contrast: No This CT examination was performed using dose optimization techniques as appropriate, variously including the following: *Automated exposure control *Adjustment of mA and/or kV according to patient size (this includes techniques or standardized protocols for targeted exams where dose is matched to indication/reason for exam; i.e. extremities or head) *Use of iterative reconstruction technique DLP: 550 mGy-cm FINDINGS: LUNG BASES: Mild dependent atelectasis. LIVER, GALLBLADDER, AND BILIARY TREE: The liver is normal in size, shape, and attenuation. No focal hepatic lesion. Common bile duct measures up to 1 cm in diameter, likely related to prior cholecystectomy. There is a small ill-defined pocket of fluid in the gallbladder fossa measuring 2 x 1.2 x 1.5 cm which may correspond to a gallbladder remnant or a small residual postoperative collection. Cholecystectomy clips are present in the gallbladder fossa. PANCREAS: Unremarkable. SPLEEN: Unremarkable. ADRENAL GLANDS: Unremarkable. KIDNEYS AND URETERS: The kidneys are normal in size, shape, and attenuation. No hydronephrosis, hydroureter, or calculi seen. No perinephric stranding. As seen on the prior study, there are multiple bilateral hypodense renal lesions, most of which are small to characterize though statistically favored to correspond to cysts. A 1 cm exophytic simple appearing left renal cyst is unchanged from prior and does not warrant follow-up. Multiple phleboliths are present around the distal ureters without hydroureter BLADDER: Unremarkable. GASTROINTESTINAL TRACT: Stomach, small bowel, and colon are normal in caliber without bowel wall thickening moderate sigmoid diverticulosis without evidence of acute diverticulitis. No intracranial free fluid or free air. Appendix is normal. ABDOMINAL WALL: No significant hernia is appreciated. LYMPH NODES: Normal. VASCULAR: Atherosclerotic calcifications are present in the abdominal aorta and iliac arteries. No aneurysmal dilatation. PELVIC VISCERA: Calcified fibroids are present in the uterus. No acute abnormalities are identified. No adnexal lesions. A pessary is noted in the vagina. OSSEOUS STRUCTURES: There is degenerative spondylosis in the lumbar spine with marked facet arthropathy at L4-5 and grade 1 anterolisthesis of L4 on L5. Mild osteoarthritis in the hips and SI joints. No acute osseous lesions. CT/CT abdomen pelvis w con IMPRESSION: 1. Status post cholecystectomy. A small 2 cm pocket of fluid in the gallbladder fossa may correspond to a small residual postoperative collection. A small gallbladder remnant is possible, though less likely. Mild dilatation of the common bile duct is likely related to the prior cholecystectomy. No intrahepatic ductal dilatation. 2. Colonic diverticulosis without evidence of acute diverticulitis.
[2021-01-25 08:18] VITALS: BP 153/70; PULSE 84; RESP 16; TEMP 36.4; O2SAT 95; BMI 31.1
--- NOTE | 2021-01-25 08:22 | ED_ITS ---
HPI - Arrhythmia/Palpitations General Chief Complaint: Arrhythmia/Palpitations Stated Complaint: CHEST PAIN Time Seen by Provider: 01/25/21 08:22 Source: patient and old records reviewed Mode of arrival: ambulatory Limitations: no limitations History of Present Illness HPI narrative: 80 yo female with PAF on coumadin and multaq comes in with c/o 7am developed upper abdominal pain that was sharp her BP went up to 170s and her HR went to 140s she had nausea but no dyspnea - compliant with medications, feels better, but still has nausea and upper abdominal discomfort - no prior episodes like this in the past, she notes that she just had her GB taken out on 12/11 MD complaint: rapid heart beat and heart racing Onset (ago): hour(s) (1.5) Duration: now resolved (not fully but resolving) Severity: moderate Context: occurred during rest Arrhythmia history: atrial fibrillation Associated symptoms: nausea Related Data Home Medications Medication Instructions Recorded Confirmed amlodipine 10 mg tablet 10 mg PO DAILY 09/17/20 01/03/21 atorvastatin 40 mg tablet 40 mg PO DAILY 09/17/20 01/03/21 cholecalciferol (vitamin D3) 25 25 mcg PO DAILY 09/17/20 01/03/21 mcg (1,000 unit) capsule losartan 1 tab PO DAILY 09/26/20 01/03/21 metoprolol tartrate 50 mg tablet 25 mg PO BID tab 10/11/20 01/03/21 cephalexin 500 mg capsule 500 mg PO TID 01/03/21 01/03/21 Previous Rx's Medication Instructions Recorded warfarin 3 mg PO DAILY #30 tab 09/27/20 dronedarone 400 mg tablet 400 mg PO BID #60 tab 01/04/21 Allergies Allergy/AdvReac Type Severity Reaction Status Date / Time codeine [CODEINE] Allergy Intermediate HEADACHES Verified 01/03/21 10:34 hydrochlorothiazide Allergy Intermediate NAUSEA & Verified 01/03/21 10:34 [HYDROCHLOROTHIAZIDE] VOMITING, low K latex [LATEX] Allergy Intermediate RASH Verified 01/03/21 10:34 lisinopril [LISINOPRIL] AdvReac Mild COUGH Verified 01/03/21 10:34 Review of Systems Review of Systems: Constitutional : No Weight loss, No Fever, No Chills ENT/Mouth : No sore throat, No Rhinorrhea Eyes: No Swelling, No Redness Cardiovascular : pos Chest Pain, No SOB, NoEdema, pos palpitations Respiratory : No Cough, No Sputum, No Wheezing Gastrointestinal : Positive Nausea, no Vomiting, no Diarrhea, positive abdominal Pain, No Hematochezia, No Melena Genitourinary : No Dysuria, No Urinary Frequency, No Hematuria, No Urgency Musculoskeletal : No joint pain, No Myalgias, No Joint Swelling Skin : No Skin Lesions, No rash Neuro : No Weakness, No Numbness, No Dizziness, No Headache Psych : No Anxiety/Panic, No Depression Heme/Lymph: No Bruising, No Lymphadenopathy Endocrine : No Polyuria, No Polydipsia All other systems reviewed and are negative. [facility] Past Medical History Attestation statement: The following information was validated with the patient. Medical History (Updated 01/25/21 @ 13:43 by Cindy Wood DO) HTN (hypertension) Paroxysmal atrial fibrillation Sinus bradycardia Surgical History (Updated 01/25/21 @ 08:31 by Cindy Wood DO) History of cholecystectomy Hx of tubal ligation Family History Family History Father CVD (cardiovascular disease) Mother CVD (cardiovascular disease) Diabetes Social History Social History Household Members: Family Housing: House Alcohol intake: never Smoking Status: Never smoker Use of substances other than those prescribed or required for medical reasons: No Advance Directives: No Advance Directives Information Provided: No service: No Current occupational status: retired Physical Exam Vital Signs: Vital Signs: Last Vital Signs Temp 97.6 F 01/25/21 08:18 Pulse 84 01/25/21 08:18 Resp 16 01/25/21 08:18 BP 153/70 H 01/25/21 08:18 Pulse Ox 95 01/25/21 08:18 Body Mass Index 31.1 Appearance: Alert. Oriented X3. No acute distress. Eyes: Pupils equal, round and reactive to light. ENT: Pharynx normal. Neck: Normal inspection. Neck supple. CVS: Normal heart rate and rhythm. Pulses normal. Respiratory: No respiratory distress. Breath sounds normal. Abdomen: Soft and mild epigastric ttp no rebound or guarding, neg Webster's sign Skin: Skin warm and dry. Normal skin color. Normal skin turgor. Extremities: No lower extremity edema. No calf ttp Neuro: Oriented X 3. No motor deficit. No sensory deficit. Course Course Course Narrative: no RUQ pain no WBC count doubt infected GB fossa, repeat troponin negative, feels much better, stable for DC MDM - Arrhythmia/Palpitations MDM Narrative Medical decision making narrative: 80 yo female with PAF on coumadin and multaq just had her GB taken out on 12/11 at this time had episode of palpitations/HTN and upper abdominal pain - compliant with her medicaitons, will need labs, troponin x 2, CT scan for retained stone, noted feelings of belching and does occur with eating since her surgery could also be gas, dispo per results and findings. Lab Data Result diagrams: 01/25/21 09:59 01/25/21 09:59 Labs: Lab Results 01/25/21 01/25/21 01/25/21 Range/Units 09:59 09:59 09:59 WBC 6.2 (4.8-10.8) X10*3/uL RBC 5.04 (4.20-5.50) X10*6/uL Hgb 15.1 (12.0-16.0) g/dl Hct 44.9 (37-47) % MCV 89.1 (80-98) fL MCH 30.0 (27.0-33.0) pg MCHC 33.6 (31.0-35.0) g/dl RDW 13.3 (11.0-16.0) % Plt Count 218 (160-400) X10*3/uL MPV 9.9 (9.4-12.3) fL Immature Gran % (Auto) 0.2 (0.0-0.4) % Neut % (Auto) 59.5 (45-73) % Lymph % (Auto) 27.2 (20-40) % Collier % (Auto) 8.8 (2-11) % Eos % (Auto) 3.7 (0-4) % Baso % (Auto) 0.6 (0-2) % Lymph # (Auto) 1.7 (1.2-4.9) X10*3/uL Collier # (Auto) 0.6 (0.1-1.2) X10*3/uL Eos # (Auto) 0.2 (0.0-0.4) X10*3/uL Baso # (Auto) 0.0 (0.0-0.2) X10*3/uL Abs Immat Gran (auto) 0.01 (0.00-0.03) X10*3/uL Absolute Neuts (auto) 3.7 (2.0-8.3) X10*3/uL Absolute Nucleated RBC 0.000 (0.0-0.012) X10*3/uL Nucleated RBC % (auto) 0.0 (0.0-0.2) /100WBC PT (10.8-13.0) SEC INR (0.9-1.1) APTT (24.1-38.0) SEC Sodium 139 (135-145) mmol/L Potassium 4.2 (3.3-5.1) mmol/L Chloride 108 (96-108) mmol/L Carbon Dioxide 24 (22-29) mmol/L Anion Gap 11 L (12-20) BUN 17 H (9-16) mg/dL Creatinine 0.76 (0.5-1.4) mg/dL Estim Creat Clear Calc 54.6 Estimated GFR > 60 Random Glucose 111 (60-115) mg/dL Calcium 9.4 (8.4-10.2) mg/dL Magnesium (1.6-2.6) mg/dL Total Bilirubin (0.0-1.0) mg/dL Direct Bilirubin (0.0-0.5) mg/dL AST (5-31) U/L ALT (0-31) U/L Alkaline Phosphatase (39-117) U/L Troponin I High Sens (<3.5-17.0) ng/L B-Natriuretic Peptide 85 (<100) pg/mL Total Protein (6.5-8.0) g/dL Albumin (3.5-5.0) g/dL Lipase (8-78) U/L TSH (0.32-4.0) uIU/mL COVID-19 (GANESH) (Negative) COVID-19 Clin Com 01/25/21 01/25/21 01/25/21 Range/Units 09:59 09:59 09:59 WBC (4.8-10.8) X10*3/uL RBC (4.20-5.50) X10*6/uL Hgb (12.0-16.0) g/dl Hct (37-47) % MCV (80-98) fL MCH (27.0-33.0) pg MCHC (31.0-35.0) g/dl RDW (11.0-16.0) % Plt Count (160-400) X10*3/uL MPV (9.4-12.3) fL Immature Gran % (Auto) (0.0-0.4) % Neut % (Auto) (45-73) % Lymph % (Auto) (20-40) % Collier % (Auto) (2-11) % Eos % (Auto) (0-4) % Baso % (Auto) (0-2) % Lymph # (Auto) (1.2-4.9) X10*3/uL Collier # (Auto) (0.1-1.2) X10*3/uL Eos # (Auto) (0.0-0.4) X10*3/uL Baso # (Auto) (0.0-0.2) X10*3/uL Abs Immat Gran (auto) (0.00-0.03) X10*3/uL Absolute Neuts (auto) (2.0-8.3) X10*3/uL Absolute Nucleated RBC (0.0-0.012) X10*3/uL Nucleated RBC % (auto) (0.0-0.2) /100WBC PT 26.3 H (10.8-13.0) SEC INR 2.2 H (0.9-1.1) APTT 46.3 H (24.1-38.0) SEC Sodium (135-145) mmol/L Potassium (3.3-5.1) mmol/L Chloride (96-108) mmol/L Carbon Dioxide (22-29) mmol/L Anion Gap (12-20) BUN (9-16) mg/dL Creatinine (0.5-1.4) mg/dL Estim Creat Clear Calc Estimated GFR Random Glucose (60-115) mg/dL Calcium (8.4-10.2) mg/dL Magnesium 2.3 (1.6-2.6) mg/dL Total Bilirubin 1.7 H (0.0-1.0) mg/dL Direct Bilirubin 0.6 H (0.0-0.5) mg/dL AST 19 (5-31) U/L ALT 23 (0-31) U/L Alkaline Phosphatase 102 (39-117) U/L Troponin I High Sens < 3.5 (<3.5-17.0) ng/L B-Natriuretic Peptide (<100) pg/mL Total Protein 6.8 (6.5-8.0) g/dL Albumin 4.3 (3.5-5.0) g/dL Lipase (8-78) U/L TSH 0.88 (0.32-4.0) uIU/mL COVID-19 (GANESH) (Negative) COVID-19 Clin Com 01/25/21 01/25/21 01/25/21 Range/Units 09:59 10:05 12:45 WBC (4.8-10.8) X10*3/uL RBC (4.20-5.50) X10*6/uL Hgb (12.0-16.0) g/dl Hct (37-47) % MCV (80-98) fL MCH (27.0-33.0) pg MCHC (31.0-35.0) g/dl RDW (11.0-16.0) % Plt Count (160-400) X10*3/uL MPV (9.4-12.3) fL Immature Gran % (Auto) (0.0-0.4) % Neut % (Auto) (45-73) % Lymph % (Auto) (20-40) % Collier % (Auto) (2-11) % Eos % (Auto) (0-4) % Baso % (Auto) (0-2) % Lymph # (Auto) (1.2-4.9) X10*3/uL Collier # (Auto) (0.1-1.2) X10*3/uL Eos # (Auto) (0.0-0.4) X10*3/uL Baso # (Auto) (0.0-0.2) X10*3/uL Abs Immat Gran (auto) (0.00-0.03) X10*3/uL Absolute Neuts (auto) (2.0-8.3) X10*3/uL Absolute Nucleated RBC (0.0-0.012) X10*3/uL Nucleated RBC % (auto) (0.0-0.2) /100WBC PT (10.8-13.0) SEC INR (0.9-1.1) APTT (24.1-38.0) SEC Sodium (135-145) mmol/L Potassium (3.3-5.1) mmol/L Chloride (96-108) mmol/L Carbon Dioxide (22-29) mmol/L Anion Gap (12-20) BUN (9-16) mg/dL Creatinine (0.5-1.4) mg/dL Estim Creat Clear Calc Estimated GFR Random Glucose (60-115) mg/dL Calcium (8.4-10.2) mg/dL Magnesium (1.6-2.6) mg/dL Total Bilirubin (0.0-1.0) mg/dL Direct Bilirubin (0.0-0.5) mg/dL AST (5-31) U/L ALT (0-31) U/L Alkaline Phosphatase (39-117) U/L Troponin I High Sens 4.0 (<3.5-17.0) ng/L B-Natriuretic Peptide (<100) pg/mL Total Protein (6.5-8.0) g/dL Albumin (3.5-5.0) g/dL Lipase 34 (8-78) U/L TSH (0.32-4.0) uIU/mL COVID-19 (GANESH) Negative (Negative) COVID-19 Clin Com See Note ECG Data Attestation: I personally reviewed and interpreted this ECG as follows: ECG interpretation date: 01/25/21 ECG interpretation time: 08:56 Interpretation: Rate: 56 Rhythm: sinus bradycardi [place]: left , LVH Normal P waves. Normal JONNA. Normal QRS complex. ST T wave : normal no ROSSY qTC: normal prior studies: no acute ischemia The study has been interpreted contemporaneously by me. . Discharge Plan Discharge Clinical Impression: Palpitations Chest pain Qualifiers: Chest pain type: unspecified Qualified Code(s): R07.9 - Chest pain, unspecified Patient Disposition: Home, Self-Care Instructions: Chest Pain (ED), Heart Palpitations (ED) Additional Instructions: INR 2.2 return to ED for any worsening symptoms or concerns Prescriptions: No Action dronedarone [Multaq] 400 mg tablet 400 mg PO BID Qty: 60 RF: 4 losartan 50 mg tablet 1 tab PO DAILY RF: 0 warfarin 3 mg tablet 3 mg PO DAILY Qty: 30 RF: 0 amlodipine 10 mg tablet 10 mg PO DAILY RF: 0 atorvastatin 40 mg tablet 40 mg PO DAILY RF: 0 cholecalciferol (vitamin D3) 25 mcg (1,000 unit) capsule 25 mcg PO DAILY RF: 0 metoprolol tartrate 50 mg tablet 25 mg PO BID RF: 0 cephalexin 500 mg capsule 500 mg PO TID RF: 0 Referrals: Claudia Zamora DO [Primary Care Provider] - 2 days Interventions: ED Discharge Assessment Last Done: 01/25/21 13:53 Discharge Date/Time: 01/25/21 13:54
--- NOTE | 2021-01-25 08:23 | ECG_ITS ---
Test Reason : ARRHYTHMIA Blood Pressure : / mmHG Vent. Rate : 056 BPM Atrial Rate : 056 BPM P-R Int : 160 ms QRS Dur : 086 ms QT Int : 470 ms P-R-T Axes : 022 -18 034 degrees QTc Int : 453 ms Sinus bradycardia Minimal voltage criteria for LVH, may be normal variant Borderline ECG When compared with ECG of 03-DEC-2020 18:37, No significant change was found Referred By: Cindy Wood Electronically Signed By:Cedric Navarrete
[2021-01-25 10:05] LABS: MANUAL DIFF FLAG NO
[2021-01-25 10:06] LABS: Basophils Percent Auto 0.6 % (0-2); Eosinophils Absolute Auto 0.2 X10*3/uL (0.0-0.4); Eosinophils Percent Auto 3.7 % (0-4); Hematocrit 44.9 % (37-47); Hemoglobin 15.1 g/dl (12.0-16.0); Imm Gran Abs Auto 0.01 X10*3/uL (0.00-0.03); Imm Gran Pct Auto 0.2 % (0.0-0.4); Lymphocytes Absolute Auto 1.7 X10*3/uL (1.2-4.9); Lymphocytes Percent Auto 27.2 % (20-40); Mean Corpuscular HGB Conc 33.6 g/dl (31.0-35.0); Mean Corpuscular Volume 89.1 fL (80-98); Mean Platelet Volume 9.9 fL (9.4-12.3); Monocytes Absolute Auto 0.6 X10*3/uL (0.1-1.2); Monocytes Percent Auto 8.8 % (2-11); Neutrophils Absolute Auto 3.7 X10*3/uL (2.0-8.3); Neutrophils Percent Auto 59.5 % (45-73); Platelet Count 218 X10*3/uL (160-400); Red Blood Count 5.04 X10*6/uL (4.20-5.50); Red Cell Distribution Width 13.3 % (11.0-16.0); White Blood Count 6.2 X10*3/uL (4.8-10.8)
[2021-01-25 10:13] LABS: INTERNATIONAL NORM RATIO 2.2 (0.9-1.1); Prothrombin Time 26.3 SEC (10.8-13.0)
[2021-01-25 10:16] LABS: Partial Thromboplastin Time 46.3 SEC (24.1-38.0)
--- NOTE | 2021-01-25 10:26 | PC.NURSE ---
pt reported relief of pain and nausea, refused iv initially, but agreeable once educated about plan of care. awaiting ct scan, blood labs obtained and sent.
[2021-01-25 10:31] LABS: COVID-19 Test Negative (Negative); IDNOW Serial# 9DD0AD1C
[2021-01-25 10:39] LABS: Alanine Aminotransferase 23 U/L (0-31); Albumin Level 4.3 g/dL (3.5-5.0); Alkaline Phosphatase 102 U/L (39-117); Anion Gap 11 (12-20); Aspartate Amino Transferase 19 U/L (5-31); Bilirubin Direct 0.6 mg/dL (0.0-0.5); Bilirubin Total 1.7 mg/dL (0.0-1.0); Blood Urea Nitrogen 17 mg/dL (9-16); Calcium 9.4 mg/dL (8.4-10.2); Carbon Dioxide 24 mmol/L (22-29); Chloride 108 mmol/L (96-108); Creatinine Clr Calc Pharmacy 54.6; Estimated Glomerular Filt Rate > 60; Glucose Random 111 mg/dL (60-115); Magnesium 2.3 mg/dL (1.6-2.6); Potassium 4.2 mmol/L (3.3-5.1); Sodium 139 mmol/L (135-145); Total Protein 6.8 g/dL (6.5-8.0); Troponin-I High Sensitivity < 3.5 ng/L (<3.5-17.0)
[2021-01-25 10:40] LABS: B Type Natriuretic Peptide 85 pg/mL (<100); Lipase 34 U/L (8-78)
[2021-01-25 11:01] LABS: Thyroid Stimulating Hormone 0.88 uIU/mL (0.32-4.0)
[2021-01-25] MEDS: iohexoL 350 MG/ML 100 ML INFUS..BTL IV (11:17)
== END 2021-01-25 13:54 | disposition home or self-care (01) ==
PROVIDERS: Emergency Provider Emergency Medicine; PCP Internal Medicine
DX: R00.2 Palpitations (principal); R07.9 Chest pain, unspecified; R10.11 Right upper quadrant pain; I48.91 Unspecified atrial fibrillation; R06.02 Shortness of breath; Z79.01 Long term (current) use of anticoagulants; Z79.899 Other long term (current) drug therapy
CPT/HCPCS: 36415; 71045; 74177; 80048; 80076; 83690; 83735; 83880; 84443; 84484; 85025; 85610; 85730; 87635; 93005; 96374; 99285; Q9967

== ENCOUNTER → 2021-02-26 12:27 | Outpatient (BNVA) | payer MEDICARE, SELFPAY | PROVIDERS: PCP Internal Medicine; Referring Provider Internal Medicine; Visit Provider Internal Medicine Cardiovascular Disease | DX: I48.0 Paroxysmal atrial fibrillation (principal); I10 Essential (primary) hypertension | CPT/HCPCS: 93005; 99212 ==

== ENCOUNTER 2021-05-29 09:27 | Outpatient (REF) | payer MEDICARE, SELFPAY ==
[2021-05-29 11:17] LABS: Anion Gap 12 (12-20); Blood Urea Nitrogen 24 mg/dL (9-16); Calcium 9.4 mg/dL (8.4-10.2); Carbon Dioxide 23 mmol/L (22-29); Chloride 108 mmol/L (96-108); Estimated Glomerular Filt Rate > 60; Glucose Random 114 mg/dL (60-115); Potassium 4.2 mmol/L (3.3-5.1); Sodium 139 mmol/L (135-145)
[2021-05-29 11:19] LABS: B Type Natriuretic Peptide 94 pg/mL (<100)
== END 2021-05-29 09:28 | disposition home or self-care (01) ==
LOC: HO.LAB 09:27
PROVIDERS: PCP Internal Medicine; Visit Provider Internal Medicine Cardiovascular Disease
DX: R06.02 Shortness of breath (principal); I48.0 Paroxysmal atrial fibrillation; I10 Essential (primary) hypertension
CPT/HCPCS: 36415; 80048; 83880; 93005; 99212

== ENCOUNTER → 2021-06-05 12:52 | Outpatient (REF) | payer MEDICARE, SELFPAY ==
--- NOTE | 2021-06-05 12:55 | CA_ITS ---
Transthoracic Echocardiogram Patient (Last, First, Middle): ToddMarch, Gender: Female Date of : 1940 Age: 81 Procedure Date: 06/05/2021 Procedure Type: Transthoracic Echocardiogram Location: OP Height: 154.94 cm Weight: 74.39 kg BSA: 1.74 m2 Heart Rate: bpm BP: 128 / 62 mmHg Student Life Dean: SUELLEN Huynh MD: Carson Angelo MD Museum Tour Guide: Carson Angelo MD Symptoms: R06.02 - Shortness of breath Study Quality: Fair ECG Rhythm: Sinus Conclusions: - 1. Normal LV systolic function with impaired relaxation filling pattern 2. Mildly dilated left atrium 3. Normal cardiac valvular Doppler 4. Normal RV systolic pressure 5. No pericardial effusion Findings Left Ventricle Normal left ventricular size, thickness, and systolic function. The visually estimated ejection fraction is between 60-65%. Spectral Doppler is indicative of an impaired relaxation filling pattern. E/E prime ratio is between 8 and 15 consistent with indeterminate filling pressures. Right Ventricle Normal right ventricular cavity size and systolic function. Atria The left atrium is mildly dilated. There is lipomatous hypertrophy of the interatrial septum. There is no evidence of interatrial shunt. The right atrium is normal in size. Aortic Valve Normal aortic valve structure and function. There is no aortic valve stenosis. There is no aortic valve regurgitation. Mitral Valve There is mild anterior and posterior mitral leaflet thickening. There is trace mitral valve regurgitation. There is no mitral valve stenosis. Pulmonic Valve The pulmonic valve was not well visualized. Tricuspid Valve Likely normal tricuspid valve structure and function. There is trace tricuspid valve regurgitation. The right ventricular systolic pressure is normal. The right ventricular systolic pressure is 28 mmHg. Normal right atrial pressure. There is no evidence of pulmonary hypertension. Great Vessels All visible segments of the aorta are normal in size. The pulmonary artery was not well visualized. Venous The inferior vena cava is normal in size and collapses greater than 50% with inspiration. Pericardium/Pleural There is no evidence of pericardial effusion. Prior Study Comparison No significant change compared to prior study dated: 08/01/2020. Measurements 2D Linear Measurements RVIDd: 3.02 RVIDd Index: 1.74 IVSd: 1.11 0.6-0.9/0.6-1.0 cm LVIDd: 4.56 3.9-5.3/4.2-5.9 cm LVIDd Index: 2.62 2.4-3.2/2.2-3.1 cm/m2 LVIDs: 3.11 2.0-3.6 cm LVPWd: 1.57 0.7-1.1 cm Ao Root: 3.10 2.1-3.5 cm LA Diam: 3.70 2.7-3.8/3.0-4.0 cm LAIDs Index: 2.13 1.5-2.3 cm/m2 LV Mass: 296.07 67-162/88-224 g LV Mass Index: 170.16 43-95/49-115 g/m2 LVOT Diam: 2.10 3.0+(-)1.3 cm 2D Systolic Function EF 4C: 52.10 >55% EF 2C: 74.50 >55% EF BiP: 65.40 >55% Mitral Valve MV Pk E: 0.73 MV PK A: 1.03 MV Decel Time: 270.00 E/A: 0.70 E'Lateral: 8.92 E'Medial: 5.66 E/E' Med: 13.00 E/E' Lat: 8.20 Aortic Valve AoV Pk Graham: 1.48 AoV Mn Graham: 1.07 AoV VTI: 0.36 AoV Pk Grad: 9.00 Aov Mn Grad: 5.00 ASHLEY Cont.VTI: 2.82 LVOT LVOT Pk Graham: 1.36 LVOT Mn Graham: 0.84 LVOT VTI: 0.30 LVOT Pk Grad: 7.00 LVOT Mn Grad: 3.00 LVOT Diam: 2.10 LVOT Area: 3.46 Diastolic Function MV Pk E: 0.73 MV Pk A: 1.03 E/A: 0.70 E'Medial: 5.66 E/E' Med: 13.00 E' Laterial: 8.92 E/E' Lat: 8.20 Right Ventricle TAPSE (mm): 26.00 TVS' Graham: 13.90 Tricuspid Valve TR Pk Graham: 2.48 TR Pk Grad: 25.00 RA Press: 3.00 RVSP: 28.00 Great Vessels Aorta Ao Root-2D: 3.10 2.0-3.7 cm Ao Asc: 3.70 2.1-3.4 cm Ao Arch: 3.10 Updated in Other Vendor System with Status of Final Carson Angelo MD electronically signed on 06/06/2021 11:43:52 AM with status of Final
== END ==
LOC: HO.CARD 12:52
PROVIDERS: Visit Provider Internal Medicine Cardiovascular Disease
DX: R06.02 Shortness of breath (principal)
CPT/HCPCS: 93306

== ENCOUNTER → 2021-08-26 12:24 | Outpatient (BNVA) | payer MEDICARE, SELFPAY | PROVIDERS: PCP Internal Medicine; Visit Provider Internal Medicine Cardiovascular Disease | DX: Z45.09 Encounter for adjustment and management of other cardiac device (principal); I48.0 Paroxysmal atrial fibrillation; I10 Essential (primary) hypertension | CPT/HCPCS: 93005; 99212 ==

== ENCOUNTER → 2021-09-12 10:05 | Outpatient (BNVA) | payer MEDICARE, SELFPAY | PROVIDERS: PCP Internal Medicine; Visit Provider Internal Medicine | DX: I48.0 Paroxysmal atrial fibrillation (principal); Z51.81 Encounter for therapeutic drug level monitoring; Z79.01 Long term (current) use of anticoagulants | CPT/HCPCS: 85610; 99202 ==

== ENCOUNTER → 2021-09-26 08:03 | Outpatient (BNVA) | payer MEDICARE, SELFPAY | PROVIDERS: PCP Internal Medicine; Visit Provider Internal Medicine | DX: I48.0 Paroxysmal atrial fibrillation (principal); Z51.81 Encounter for therapeutic drug level monitoring; Z79.01 Long term (current) use of anticoagulants | CPT/HCPCS: 85610; 99211 ==

== ENCOUNTER → 2021-10-17 08:08 | Outpatient (BNVA) | payer MEDICARE, SELFPAY | PROVIDERS: PCP Internal Medicine; Visit Provider Internal Medicine | DX: I48.0 Paroxysmal atrial fibrillation (principal); Z51.81 Encounter for therapeutic drug level monitoring; Z79.01 Long term (current) use of anticoagulants | CPT/HCPCS: 85610; 99211 ==

== ENCOUNTER → 2021-11-07 08:04 | Outpatient (BNVA) | payer MEDICARE, SELFPAY | PROVIDERS: PCP Internal Medicine; Visit Provider Internal Medicine | DX: I48.0 Paroxysmal atrial fibrillation (principal); Z51.81 Encounter for therapeutic drug level monitoring; Z79.01 Long term (current) use of anticoagulants | CPT/HCPCS: 85610; 99211 ==

== ENCOUNTER → 2021-11-26 09:12 | Outpatient (BNVA) | payer MEDICARE, SELFPAY | PROVIDERS: PCP Internal Medicine; Referring Provider Internal Medicine; Visit Provider Internal Medicine Cardiovascular Disease | DX: Z45.09 Encounter for adjustment and management of other cardiac device (principal); I48.0 Paroxysmal atrial fibrillation; I10 Essential (primary) hypertension; R00.1 Bradycardia, unspecified | CPT/HCPCS: 93005; 99212 ==

== ENCOUNTER → 2021-12-05 08:05 | Outpatient (BNVA) | payer MEDICARE, SELFPAY | PROVIDERS: PCP Internal Medicine; Visit Provider Internal Medicine | DX: I48.0 Paroxysmal atrial fibrillation (principal); Z51.81 Encounter for therapeutic drug level monitoring; Z79.01 Long term (current) use of anticoagulants | CPT/HCPCS: 85610; 99211 ==

== ENCOUNTER → 2021-12-26 08:03 | Outpatient (BNVA) | payer MEDICARE, SELFPAY | PROVIDERS: PCP Internal Medicine; Visit Provider Internal Medicine | DX: I48.0 Paroxysmal atrial fibrillation (principal); Z51.81 Encounter for therapeutic drug level monitoring; Z79.01 Long term (current) use of anticoagulants | CPT/HCPCS: 85610; 99211 ==

== ENCOUNTER 2021-12-30 06:21 | Outpatient (REF) | payer MEDICARE, SELFPAY ==
[2021-12-30 11:32] LABS: Appearance Urine HAZY; Color Urine YELLOW; Glucose Urine UA NEG (NEG); Leukocyte Esterase Urine 1+ (NEG); Nitrite Urine NEG (NEG); Specific Gravity - Urine >= 1.030 (1.005-1.025); Urine Blood NEG (NEG); Urine Ketones 5 MG/DL (NEG); Urine Protein NEG (NEG-TRACE)
[2021-12-30 11:41] LABS: Hematocrit 43.3 % (37.0-47.0); Hemoglobin 14.3 g/dl (12.0-16.0); Mean Corpuscular Hemoglobin 29.7 pg (27.0-33.0); Mean Platelet Volume 11.2 fL (9.4-12.3); Platelet Count 208 X10*3/uL (160-400); Red Blood Count 4.81 X10*6/uL (4.20-5.50); Red Cell Distribution Width 12.9 % (11.0-16.0); White Blood Count 7.2 X10*3/uL (4.8-10.8)
[2021-12-30 11:52] LABS: Bacteria Urine 1+ /LPF; Mucus Urine 2+ /LPF; RBC Urine 0 /HPF (0); Squamous Epithelial Cell Urine 3+ /LPF
[2021-12-30 12:21] LABS: TSH reflex Free T4 1.83 uIU/mL (0.32-4.0)
[2021-12-30 12:23] LABS: Alanine Aminotransferase 19 U/L (0-31); Albumin Level 4.1 g/dL (3.5-5.0); Alkaline Phosphatase 89 U/L (39-117); Anion Gap 11 (12-20); Aspartate Amino Transferase 18 U/L (5-31); Bilirubin Total 1.5 mg/dL (0.0-1.0); Blood Urea Nitrogen 20 mg/dL (9-16); Calcium 9.5 mg/dL (8.4-10.2); Carbon Dioxide 26 mmol/L (22-29); Chloride 108 mmol/L (96-108); Cholesterol 136 mg/dL; Estimated Glomerular Filt Rate > 60; Glucose Fasting 108 mg/dL (60-99); HDL Cholesterol 45 mg/dL; LDL Cholesterol Calculated 72 mg/dl; Sodium 141 mmol/L (135-145); Total Protein 6.6 g/dL (6.5-8.0); Triglycerides 98 mg/dL
[2022-01-03 13:40] LABS: Vitamin D 25-OH, D2 <4 ng/mL; Vitamin D 25-OH, D3 42 ng/mL; Vitamin D 25-OH, Total 42 ng/mL (30-100)
== END 2021-12-30 06:22 | disposition home or self-care (01) ==
LOC: HO.HMGCLDS 06:21
PROVIDERS: Visit Provider Internal Medicine
DX: I48.0 Paroxysmal atrial fibrillation (principal); I10 Essential (primary) hypertension; E78.5 Hyperlipidemia, unspecified; M81.0 Age-related osteoporosis without current pathological fracture
CPT/HCPCS: 36415; 80053; 80061; 81001; 82306; 84443; 85027

== ENCOUNTER → 2022-01-08 08:09 | Outpatient (BNVA) | payer MEDICARE, SELFPAY | PROVIDERS: PCP Internal Medicine; Visit Provider Internal Medicine | DX: I48.0 Paroxysmal atrial fibrillation (principal); Z51.81 Encounter for therapeutic drug level monitoring; Z79.01 Long term (current) use of anticoagulants | CPT/HCPCS: 85610; 99211 ==

== ENCOUNTER → 2022-01-13 08:40 | Outpatient (BNVA) | payer MEDICARE, SELFPAY | PROVIDERS: PCP Internal Medicine; Visit Provider Internal Medicine | DX: I48.0 Paroxysmal atrial fibrillation (principal); Z51.81 Encounter for therapeutic drug level monitoring; Z79.01 Long term (current) use of anticoagulants | CPT/HCPCS: 85610; 99211 ==

== ENCOUNTER → 2022-01-21 08:58 | Outpatient (BNVA) | payer MEDICARE, SELFPAY | PROVIDERS: PCP Internal Medicine; Visit Provider Internal Medicine | DX: I48.0 Paroxysmal atrial fibrillation (principal); N81.4 Uterovaginal prolapse, unspecified; Z79.01 Long term (current) use of anticoagulants; Z51.81 Encounter for therapeutic drug level monitoring | CPT/HCPCS: 85610; 99202; 99211 ==

== ENCOUNTER 2022-01-29 12:26 | Outpatient (REF) | payer MEDICARE, SELFPAY ==
--- NOTE | ~2022-01-29 | MM_ITS ---
EXAMINATION: MM SCREENING DIGITAL BREAST TOMOSYNTHESIS, BILATERAL CLINICAL INFORMATION: Screening. Asymptomatic. The lifetime risk of breast cancer based on the Tyrer-Cuzick Model is 2%. COMPARISON: Outside mammography: 10/20/2020, 08/04/2019, 07/28/2018 (Between) TECHNIQUE: Digital breast tomosynthesis is performed in both the craniocaudal and mediolateral oblique views along with computer-aided detection (CAD). Synthesized 2D images are generated from the tomosynthesis. FINDINGS: There are scattered areas of fibroglandular density (ACR BI-RADS breast composition Category b). There are no significant masses, abnormal calcifications, or other abnormalities. There is small dermal lesion again seen overlying the posterior medial right breast previously marked with dermal marker 2018. Cardiac loop recorder overlies posterior medial left breast. The axilla are unremarkable. MM/MM tomosynthesis screening BI IMPRESSION: No mammographic evidence of malignancy. ASSESSMENT: BI-RADS 2: Benign RECOMMENDATION: Routine annual mammography screening. This patient's information was entered into a reminder system with a target due date for their next mammogram.
--- NOTE | ~2022-01-29 | MM_ITS ---
EXAMINATION: BONE DENSITOMETRY CLINICAL INDICATION: Osteoporosis. COMPARISON: None (current study represents initial baseline exam). TECHNIQUE: Using a [employer] DXA System (software version: 13.1) manufactured by [employer], dual-energy x-ray absorptiometry was performed of the lumbar spine and left hip. The images are of good technical quality. Summary results are attached. FINDINGS: AP SPINE L1-L4: BMD 1.050 g/cm2, Z-score 0.4, T-score -1.1, osteopenia. LEFT FEMUR, NECK: BMD 0.713 g/cm2, Z-score -0.3, T-score -2.3, osteopenia. LEFT FEMUR, TOTAL: BMD 0.800 g/cm2, Z-score 0.2, T-score -1.7, osteopenia. IDENTIFIED RISK FACTORS: Menopause, height loss. HISTORY OF FRACTURE: None listed. MEDICATIONS: Vitamin D. MM/XR DEXA axial skeleton IMPRESSION: 1. DIAGNOSIS: Osteopenia based on the lowest T-score value of -2.3 in the femoral neck applying World Health Organization criteria. 2. 10-YEAR FRACTURE RISK PREDICTION, FRAX: Major osteoporotic fracture (clinical spine, forearm, hip or shoulder) 17.3%. Hip fracture 5.8%. 3. Treatment Recommendations: NOF guidelines recommend consideration for treatment in postmenopausal women and men age 50 and older presenting with the following: -A hip or vertebral (clinical or morphometric) fracture. -T-score less than or equal to -2.5 at the femoral neck or spine after appropriate evaluation to exclude secondary causes. -Low bone mass at the hip or spine and a 10-year fracture probability by FRAX of greater than or equal to 3% for hip fracture or greater than or equal to 20% for major osteoporotic fracture based on the [place] adapted WHO algorithm. 4. Other Recommendations: All treatment decisions require clinical judgment and consideration of individual patient factors, including patient preferences, comorbidities, previous drug use, risk factors not captured in the FRAX model (e.g. frailty, falls, vitamin D deficiency, increased bone turnover, interval significant decline in bone density) and possible under or overestimation of fracture risk by FRAX. Additional medical evaluation for secondary cause of low bone mineral density may be appropriate. FUTURE SCAN RECOMMENDATION: People with diagnosed cases of osteoporosis or at high risk for fracture should have regular bone mineral density tests. For patients eligible for Medicare, routine testing is allowed once every 2 years. The testing frequency can be increased to one year for patients who have rapidly progressing disease, those who are receiving or discontinuing medical therapy to restore bone mass, or have additional risk factors.
== END 2022-01-29 12:27 | disposition home or self-care (01) ==
LOC: HO.MAMMO 12:26
PROVIDERS: PCP Internal Medicine; Visit Provider Internal Medicine
DX: Z12.31 Encounter for screening mammogram for malignant neoplasm of breast (principal); Z13.820 Encounter for screening for osteoporosis; M81.0 Age-related osteoporosis without current pathological fracture; Z78.0 Asymptomatic menopausal state
CPT/HCPCS: 77063; 77067; 77080

== ENCOUNTER → 2022-02-04 08:18 | Outpatient (BNVA) | payer MEDICARE, SELFPAY | PROVIDERS: PCP Internal Medicine; Visit Provider Internal Medicine | DX: I48.0 Paroxysmal atrial fibrillation (principal); Z79.01 Long term (current) use of anticoagulants; Z51.81 Encounter for therapeutic drug level monitoring | CPT/HCPCS: 85610; 99211 ==

== ENCOUNTER → 2022-02-18 08:26 | Outpatient (BNVA) | payer MEDICARE, SELFPAY | PROVIDERS: Visit Provider Obstetrics & Gynecology | DX: N81.4 Uterovaginal prolapse, unspecified (principal) | CPT/HCPCS: 93005; 99212 ==

== ENCOUNTER → 2022-02-25 08:02 | Outpatient (BNVA) | payer MEDICARE, SELFPAY | PROVIDERS: PCP Internal Medicine; Visit Provider Internal Medicine | DX: I48.0 Paroxysmal atrial fibrillation (principal); Z79.01 Long term (current) use of anticoagulants; Z51.81 Encounter for therapeutic drug level monitoring | CPT/HCPCS: 85610; 99211 ==

== ENCOUNTER → 2022-03-18 08:00 | Outpatient (BNVA) | payer MEDICARE, SELFPAY | PROVIDERS: PCP Internal Medicine; Visit Provider Internal Medicine | DX: I48.0 Paroxysmal atrial fibrillation (principal); Z79.01 Long term (current) use of anticoagulants; Z51.81 Encounter for therapeutic drug level monitoring | CPT/HCPCS: 85610; 99211 ==

== ENCOUNTER 2022-04-08 08:17 | Outpatient (REF) | payer MEDICARE, SELFPAY | END 2022-04-08 08:18 | disposition home or self-care (01) | LOC: HO.HMGCLNP 08:17 | PROVIDERS: PCP Internal Medicine; Visit Provider Internal Medicine | DX: A04.8 Other specified bacterial intestinal infections (principal) | CPT/HCPCS: 87338 ==

== ENCOUNTER 2022-04-15 06:18 | Outpatient (REF) | payer MEDICARE, SELFPAY ==
[2022-04-15 11:25] LABS: MANUAL DIFF FLAG NO
[2022-04-15 11:35] LABS: Basophils Percent Auto 0.4 % (0-2); Eosinophils Absolute Auto 0.2 X10*3/uL (0.0-0.4); Eosinophils Percent Auto 2.3 % (0-4); Hematocrit 42.1 % (37.0-47.0); Hemoglobin 14.1 g/dl (12.0-16.0); Imm Gran Abs Auto 0.02 X10*3/uL (0.00-0.03); Imm Gran Pct Auto 0.3 % (0.0-0.4); Lymphocytes Absolute Auto 3.2 X10*3/uL (1.2-4.9); Lymphocytes Percent Auto 45.5 % (20-40); Mean Corpuscular HGB Conc 33.5 g/dl (31.0-35.0); Mean Corpuscular Hemoglobin 29.9 pg (27.0-33.0); Mean Corpuscular Volume 89.2 fL (80.0-98.0); Mean Platelet Volume 10.8 fL (9.4-12.3); Monocytes Absolute Auto 0.7 X10*3/uL (0.1-1.2); Monocytes Percent Auto 9.3 % (2-11); Neutrophils Percent Auto 42.2 % (45-73); Platelet Count 203 X10*3/uL (160-400); Red Blood Count 4.72 X10*6/uL (4.20-5.50); Red Cell Distribution Width 13.1 % (11.0-16.0); White Blood Count 7.1 X10*3/uL (4.8-10.8)
[2022-04-15 11:40] LABS: Estimated Average Glucose 108 mg/dL; Hemoglobin A1c % 5.4 %
[2022-04-15 11:59] LABS: TSH reflex Free T4 1.59 uIU/mL (0.32-4.0)
[2022-04-15 12:01] LABS: Anion Gap 10 (12-20); Blood Urea Nitrogen 20 mg/dL (9-16); Calcium 9.4 mg/dL (8.4-10.2); Carbon Dioxide 24 mmol/L (22-29); Chloride 109 mmol/L (96-108); Cholesterol 175 mg/dL; Estimated Glomerular Filt Rate > 60; Glucose Random 103 mg/dL (60-115); HDL Cholesterol 47 mg/dL; LDL Cholesterol Calculated 108 mg/dl; Sodium 139 mmol/L (135-145); Triglycerides 101 mg/dL
== END 2022-04-15 06:19 | disposition home or self-care (01) ==
LOC: HO.HMGCLDS 06:18
PROVIDERS: Visit Provider Internal Medicine
DX: I10 Essential (primary) hypertension (principal); I48.0 Paroxysmal atrial fibrillation; R73.9 Hyperglycemia, unspecified; E78.5 Hyperlipidemia, unspecified
CPT/HCPCS: 36415; 80048; 80061; 83036; 84443; 85025

== ENCOUNTER → 2022-04-16 07:56 | Outpatient (BNVA) | payer MEDICARE, SELFPAY | PROVIDERS: PCP Internal Medicine; Visit Provider Internal Medicine | DX: I48.0 Paroxysmal atrial fibrillation (principal); Z79.01 Long term (current) use of anticoagulants; Z51.81 Encounter for therapeutic drug level monitoring | CPT/HCPCS: 85610; 99211 ==

== ENCOUNTER 2022-05-12 11:29 | Outpatient (REF) | payer MEDICARE, SELFPAY ==
--- NOTE | ~2022-05-12 | XR_ITS ---
EXAMINATION: XR ANKLE, RIGHT CLINICAL INFORMATION: S93.401A - Sprain of unspecified ligament of right ankle, initial encounter COMPARISON: None TECHNIQUE: AP, lateral, and mortise views of the right ankle. FINDINGS: The malleoli appear intact and the ankle mortise is symmetric. There is no visible fracture, dislocation, or destructive process. The talar dome shows no osteochondral lesion. No ankle joint narrowing or erosive change. There is mild spurring medial ankle between tip medial malleolus and medial talar neck. There are bulky plantar and moderate posterior calcaneal spurs. Some mild linear mineralization present in region of mid plantar fascia suggesting chronic fasciitis. XR/XR ankle RT min 3V IMPRESSION: -No fracture or dislocation. -Posterior and plantar calcaneal spurs and mineralization in region of mid plantar fascia.
== END 2022-05-12 11:30 | disposition home or self-care (01) ==
LOC: HO.HMGCX 11:29
PROVIDERS: PCP Internal Medicine; Visit Provider Internal Medicine
DX: S93.401A Sprain of unspecified ligament of right ankle, initial encounter (principal)
CPT/HCPCS: 73610

== ENCOUNTER → 2022-05-16 08:01 | Outpatient (BNVA) | payer MEDICARE, SELFPAY | PROVIDERS: PCP Internal Medicine; Visit Provider Internal Medicine | DX: I48.0 Paroxysmal atrial fibrillation (principal); Z79.01 Long term (current) use of anticoagulants; Z51.81 Encounter for therapeutic drug level monitoring | CPT/HCPCS: 85610; 99211 ==

== ENCOUNTER → 2022-06-03 10:46 | Outpatient (BNVA) | payer MEDICARE, SELFPAY | PROVIDERS: PCP Internal Medicine; Referring Provider Internal Medicine; Visit Provider Internal Medicine Cardiovascular Disease | DX: Z45.09 Encounter for adjustment and management of other cardiac device (principal); I48.0 Paroxysmal atrial fibrillation; I10 Essential (primary) hypertension | CPT/HCPCS: 93005; 99212 ==

== ENCOUNTER → 2022-06-11 08:00 | Outpatient (BNVA) | payer MEDICARE, SELFPAY | PROVIDERS: PCP Internal Medicine; Visit Provider Internal Medicine | DX: I48.0 Paroxysmal atrial fibrillation (principal); Z79.01 Long term (current) use of anticoagulants; Z51.81 Encounter for therapeutic drug level monitoring | CPT/HCPCS: 85610 ==

== ENCOUNTER → 2022-06-12 08:05 | Outpatient (BNVA) | payer MEDICARE, SELFPAY | PROVIDERS: PCP Internal Medicine; Visit Provider Obstetrics & Gynecology | DX: Z46.89 Encounter for fitting and adjustment of other specified devices (principal) | CPT/HCPCS: 99212 ==

== ENCOUNTER → 2022-07-08 08:01 | Outpatient (BNVA) | payer MEDICARE, SELFPAY | PROVIDERS: PCP Internal Medicine; Visit Provider Internal Medicine | DX: I48.0 Paroxysmal atrial fibrillation (principal); Z79.01 Long term (current) use of anticoagulants; Z51.81 Encounter for therapeutic drug level monitoring | CPT/HCPCS: 85610; 99211 ==

== ENCOUNTER → 2022-08-05 08:21 | Outpatient (REF) | payer MEDICARE, SELFPAY ==
--- NOTE | 2022-08-05 08:24 | CA_ITS ---
Transthoracic Echocardiogram Patient (Last, First, Middle): ToddMarch, Gender: Female Date of : 1940 Age: 82 Procedure Date: 08/05/2022 Procedure Type: Transthoracic Echocardiogram Location: OP Height: 154.94 cm Weight: 75.75 kg BSA: 1.75 m2 Heart Rate: bpm BP: 120 / 66 mmHg Design Engineering Technician: ALVARADO Referring MD: Carson Angelo MD Symptoms: I48.0 - Paroxysmal atrial fibrillation Study Quality: Adequate ECG Rhythm: Sinus Conclusions: - The left ventricular systolic function is normal. The calculated ejection fraction is 69% by biplane method. - The left atrium is severely dilated. - No obvious valvular pathology seen on this study. Findings Left Ventricle Normal left ventricular cavity size. There is mildly increased left ventricular wall thickness. The left ventricular systolic function is normal. The calculated ejection fraction is 69% by biplane method. There is no evidence of regional wall motion abnormalities. Abnormal diastolic function is noted. LV peak GLS -21.2%. Right Ventricle Normal right ventricular cavity size and systolic function. Atria The left atrium is severely dilated. The right atrium is normal in size. Aortic Valve There is a normal trileaflet aortic valve. There is no aortic valve stenosis. There is no aortic valve regurgitation. Mitral Valve There is mild mitral annular calcification. There is trace mitral valve regurgitation. There is no mitral valve stenosis. Pulmonic Valve The pulmonic valve is likely normal. Tricuspid Valve Normal tricuspid valve structure. There is mild tricuspid valve regurgitation. There is no evidence of pulmonary hypertension. Great Vessels The asc aorta is normal in size. Venous The inferior vena cava is normal in size and collapses greater than 50% with inspiration. Pericardium/Pleural There is no evidence of pericardial effusion. Prior Study Comparison Changes noted compared to prior study dated: 06/05/2021. Increase in atrial size. Recommendations, Care & Conclusions No obvious valvular pathology seen on this study. Measurements 2D Linear Measurements IVSd: 1.25 0.6-0.9/0.6-1.0 cm LVIDd: 4.75 3.9-5.3/4.2-5.9 cm LVIDd Index: 2.71 2.4-3.2/2.2-3.1 cm/m2 LVIDs: 3.28 2.0-3.6 cm LVPWd: 1.14 0.7-1.1 cm LA Diam: 3.40 2.7-3.8/3.0-4.0 cm LAIDs Index: 1.94 1.5-2.3 cm/m2 LV Mass: 267.10 67-162/88-224 g LV Mass Index: 152.63 43-95/49-115 g/m2 LVOT Diam: 2.10 3.0+(-)1.3 cm 2D Systolic Function EF 4C: 68.00 >55% EF 2C: 69.80 >55% EF BiP: 68.80 >55% Mitral Valve MV Pk E: 0.72 MV PK A: 0.75 MV Decel Time: 271.00 E/A: 1.00 E'Lateral: 7.51 E'Medial: 6.09 E/E' Med: 11.80 E/E' Lat: 9.50 PHT: 79.00 MVA PHT: 2.78 Decel [place]: 2.64 Aortic Valve AoV Pk Graham: 1.24 AoV Mn Graham: 0.86 AoV VTI: 0.36 AoV Pk Grad: 6.00 Aov Mn Grad: 3.00 ASHLEY Cont.VTI: 2.99 LVOT LVOT Pk Graham: 1.08 LVOT Mn Graham: 0.71 LVOT VTI: 0.32 LVOT Pk Grad: 5.00 LVOT Mn Grad: 2.00 LVOT Diam: 2.10 LVOT Area: 3.46 Diastolic Function MV Pk E: 0.72 MV Pk A: 0.75 E/A: 1.00 E'Medial: 6.09 E/E' Med: 11.80 E' Laterial: 7.51 E/E' Lat: 9.50 Right Ventricle TAPSE (mm): 30.80 TVS' Graham: 10.20 Tricuspid Valve TR Pk Graham: 2.38 TR Pk Grad: 23.00 RA Press: 3.00 RVSP: 26.00 Great Vessels Aorta Sinus of Valsalva: 3.38 2.0-3.[address] [place]: 2.44 1.7-3.4 cm Ao Asc: 3.90 2.1-3.4 cm Updated in Other Vendor System with Status of Final Chivo Duran MD electronically signed on 08/06/2022 8:51:22 AM with status of Final
== END ==
LOC: HO.CARD 08:21
PROVIDERS: PCP Internal Medicine; Visit Provider Internal Medicine Cardiovascular Disease
DX: I48.0 Paroxysmal atrial fibrillation (principal); R06.02 Shortness of breath; Z51.81 Encounter for therapeutic drug level monitoring; Z79.01 Long term (current) use of anticoagulants
CPT/HCPCS: 85610; 93306; 93356; 99211

== ENCOUNTER → 2022-08-13 10:36 | Outpatient (BNVA) | payer MEDICARE, SELFPAY | PROVIDERS: PCP Internal Medicine; Referring Provider Internal Medicine; Visit Provider Internal Medicine Cardiovascular Disease | DX: Z45.09 Encounter for adjustment and management of other cardiac device (principal); I48.0 Paroxysmal atrial fibrillation; I10 Essential (primary) hypertension | CPT/HCPCS: 93005; 99212 ==

== ENCOUNTER → 2022-09-09 08:06 | Outpatient (BNVA) | payer MEDICARE, SELFPAY | PROVIDERS: PCP Internal Medicine; Visit Provider Internal Medicine | DX: I48.0 Paroxysmal atrial fibrillation (principal); Z79.01 Long term (current) use of anticoagulants; Z51.81 Encounter for therapeutic drug level monitoring | CPT/HCPCS: 85610; 99211 ==

== ENCOUNTER 2022-09-16 08:18 | Outpatient (REF) | payer MEDICARE, SELFPAY ==
[2022-09-16 09:52] LABS: Anion Gap 11 (12-20); Blood Urea Nitrogen 29 mg/dL (9-16); Calcium 9.5 mg/dL (8.4-10.2); Carbon Dioxide 26 mmol/L (22-29); Chloride 106 mmol/L (96-108); Estimated Glomerular Filt Rate > 60; Glucose Random 140 mg/dL (60-115); Potassium 3.9 mmol/L (3.3-5.1); Sodium 139 mmol/L (135-145)
[2022-09-16 10:00] LABS: B Type Natriuretic Peptide 87 pg/mL (<100)
== END 2022-09-16 08:19 | disposition home or self-care (01) ==
LOC: HO.LAB 08:18
PROVIDERS: Internal Medicine Cardiovascular Disease; PCP Internal Medicine; Visit Provider Obstetrics & Gynecology
DX: I48.0 Paroxysmal atrial fibrillation (principal); R06.02 Shortness of breath; Z46.89 Encounter for fitting and adjustment of other specified devices
CPT/HCPCS: 36415; 80048; 83880; 99212

== ENCOUNTER 2022-10-01 12:48 | Outpatient (REF) | payer MEDICARE, SELFPAY ==
[2022-10-01 13:42] LABS: COVID-19 Test Negative (Negative); IDNOW Serial# 16C4AD1C
== END 2022-10-01 12:49 | disposition home or self-care (01) ==
LOC: HO.LAB 12:48
PROVIDERS: Visit Provider Internal Medicine
DX: Z20.822 Contact with and (suspected) exposure to COVID-19 (principal)
CPT/HCPCS: 87635; C9803

== ENCOUNTER → 2022-10-07 08:09 | Outpatient (BNVA) | payer MEDICARE, SELFPAY | PROVIDERS: PCP Internal Medicine; Visit Provider Internal Medicine | DX: I48.0 Paroxysmal atrial fibrillation (principal); Z79.01 Long term (current) use of anticoagulants; Z51.81 Encounter for therapeutic drug level monitoring | CPT/HCPCS: 85610; 99211 ==

== ENCOUNTER 2022-10-07 08:48 | Outpatient (REF) | payer MEDICARE, SELFPAY ==
[2022-10-07 09:31] LABS: COVID-19 Test Negative (Negative); IDNOW Serial# BCCEAD1C
== END 2022-10-07 08:49 | disposition home or self-care (01) ==
LOC: HO.LAB 08:48
PROVIDERS: Visit Provider Internal Medicine
DX: Z20.822 Contact with and (suspected) exposure to COVID-19 (principal); I48.0 Paroxysmal atrial fibrillation; Z51.81 Encounter for therapeutic drug level monitoring; Z79.01 Long term (current) use of anticoagulants
CPT/HCPCS: 87635; C9803

== ENCOUNTER → 2022-11-11 09:10 | Outpatient (BNVA) | payer MEDICARE, SELFPAY | PROVIDERS: PCP Internal Medicine; Visit Provider Internal Medicine | DX: I48.0 Paroxysmal atrial fibrillation (principal); Z79.01 Long term (current) use of anticoagulants; Z51.81 Encounter for therapeutic drug level monitoring | CPT/HCPCS: 85610; 99211 ==

== ENCOUNTER 2022-11-21 12:13 | Emergency (ER) | payer MEDICARE, SELFPAY ==
--- NOTE | ~2022-11-21 | CT_ITS ---
EXAMINATION: CT HEAD WITHOUT CONTRAST CLINICAL INFORMATION: Dizziness. COMPARISON: Head CT scan dated 11/05/2017. TECHNIQUE: Contiguous axial imaging was performed from the skull base to vertex without intravenous administration of contrast. Coronal and sagittal reformatted images were obtained. This CT examination was performed using dose optimization techniques as appropriate, variously including the following: *Automated exposure control *Adjustment of mA and/or kV according to patient size (this includes techniques or standardized protocols for targeted exams where dose is matched to indication/reason for exam; i.e. extremities or head) *Use of iterative reconstruction technique DLP: 651 mGy-cm FINDINGS: The cortical sulci are normal. The lateral ventricles are symmetrical. The third and fourth ventricles are in their normal midline position. The basilar and prepontine cisterns are unremarkable. There is no acute intra or extracerebral abnormality. There is no mass effect or midline shift. Sections through the bony calvarium are unremarkable. The paranasal sinuses are clear. Hypoaeration of the left mastoid air cells is seen inferiorly. The bony orbits and orbital contents are unremarkable. CT/CT head/brain wo IV con IMPRESSION: No acute intracranial pathology.
--- NOTE | ~2022-11-21 | XR_ITS ---
EXAMINATION: XR CHEST CLINICAL INFORMATION: Dizziness. COMPARISON: 01/25/2021 chest radiograph. TECHNIQUE: 2 views of the chest were obtained. FINDINGS: No significant abnormality is noted involving the heart, lungs, mediastinum, bony thorax or soft tissues. A leadless pacemaker appears in good position. XR/XR chest 2V IMPRESSION: No acute cardiopulmonary process.
[2022-11-21 12:18] VITALS: BP 142/91; PULSE 76; RESP 20; TEMP 36.1; O2SAT 97; BMI 32.1
--- NOTE | 2022-11-21 12:25 | ECG_ITS ---
Test Reason : DIZZINESS Blood Pressure : / mmHG Vent. Rate : 067 BPM Atrial Rate : 067 BPM P-R Int : 156 ms QRS Dur : 086 ms QT Int : 446 ms P-R-T Axes : 024 -25 037 degrees QTc Int : 471 ms Sinus rhythm with Premature atrial complexes Nonspecific ST and T wave abnormality Abnormal ECG When compared with ECG of 25-JAN-2021 08:37, Premature atrial complexes are now Present Referred By: Maryam Jimenez Electronically Signed By:Cedric Navarrete
--- NOTE | 2022-11-21 12:27 | ED_ITS ---
HPI - Dizziness General Chief Complaint: Weakness <NICHOLAS Ayers - Last Filed: 11/21/22 12:29> Stated Complaint: Dizziness/Nausea/Upper abd pain <NICHOLAS Ayers - Last Filed: 11/21/22 12:29> Time Seen by Provider: 11/21/22 12:49 <NICHOLAS Ayers - Last Filed: 11/21/22 12:29> Source: patient and family <Ivett Rodas NP - Last Filed: 11/21/22 16:54> Mode of arrival: wheelchair <Ivett Rodas NP - Last Filed: 11/21/22 16:54> Limitations: no limitations <Ivett Rodas NP - Last Filed: 11/21/22 16:54> History of Present Illness HPI Narrative: 82-year-old female with a history of AFib currently on Coumadin, hypertension, hyperlipidemia who presents to the emergency room with complaints of episode of upper abdominal pain which began at noon while she was on the phone with a friend. Pain was sharp and severe lasted several minutes with associated nausea and resolved without intervention. No vomiting associated, diaphoresis, shortness of breath, palpitations. Pain is now resolved. Patient reports that she started Augmentin yesterday for a presumed right otitis media. She took 2 doses of this. She reports the right ear has been painful over the last 4-5 days and she has been feeling dizzy especially when she moves around. No hearing loss, cough or cold symptoms. <Ivett Rodas NP - Last Filed: 11/21/22 16:54> MD elicited complaint: dizziness <Ivett Rodas NP - Last Filed: 11/21/22 16:54> Related Data Home Medications: Home Medications Medication Instructions Recorded Confirmed cholecalciferol (vitamin D3) 25 25 mcg PO DAILY 09/17/20 11/21/22 mcg (1,000 unit) capsule simethicone 125 mg capsule (Gas 250 mg PO BID PRN 09/12/21 11/21/22 Relief (simethicone)) Previous Rx's Medication Instructions Recorded metoprolol tartrate 50 mg tablet 25 mg PO BID #180 tabs 01/29/22 losartan 50 mg tablet 50 mg PO DAILY #90 tabs 04/01/22 nystatin 100,000 unit/gram topical 1 appl topical BID PRN rash #30 05/21/22 powder (Nystop) grams dronedarone 400 mg tablet (Multaq) 400 mg PO BID #60 tabs 10/01/22 furosemide 20 mg tablet 20 mg PO DAILY #30 tabs 10/15/22 albuterol sulfate 90 mcg/actuation 2 puff inhalation Q6H PRN 10/21/22 aerosol inhaler shortness of breath or wheezing #6.7 grams benzonatate 100 mg capsule 100 mg PO BID PRN cough #14 caps 10/21/22 amlodipine 10 mg tablet 10 mg PO DAILY #90 tabs 10/22/22 atorvastatin 40 mg tablet 40 mg PO DAILY #90 tabs 10/22/22 warfarin 5 mg tablet 5 mg PO DAILY #100 tabs 10/22/22 triamcinolone acetonide 0.1 % 1 appl topical BID #80 grams 11/14/22 topical cream amoxicillin 875 mg-potassium 1 tab PO BID #10 tabs 11/20/22 clavulanate 125 mg tablet jauhumgl-[id number]-wzmkksiuy 3.5 4 drp otic (ear) right QID 7 days 11/20/22 mg-10,000 unit/mL-1 % ear #10 mL drops,susp meclizine 25 mg tablet 25 mg PO TID PRN dizziness #15 tabs 11/21/22 <NICHOLAS Ayers - Last Filed: 11/21/22 12:29> Allergies/Adverse Reactions: Allergies Allergy/AdvReac Type Severity Reaction Status Date / Time codeine [CODEINE] Allergy Intermediate HEADACHES Verified 11/21/22 13:53 hydrochlorothiazide Allergy Intermediate NAUSEA & Verified 11/21/22 13:53 [HYDROCHLOROTHIAZIDE] VOMITING, low K latex [LATEX] Allergy Intermediate RASH Verified 11/21/22 13:53 lisinopril [LISINOPRIL] AdvReac Mild COUGH Verified 11/21/22 13:46 <NICHOLAS Ayers - Last Filed: 11/21/22 12:29> Review of Systems Review of Systems: Yes all other systems are reviewed and are negative <Ivett Rodas NP - Last Filed: 11/21/22 16:54> Constitutional: Constitutional: Reports no additional constitutional complaints, Denies body ache(s), Denies chills, Denies fever(s), Denies headache(s) and Denies weakness <Ivett Rodas MEDICAL STAFF COORDINATOR - Last Filed: 11/21/22 16:54> Eyes: Eyes: Reports no additional eye complaints and Denies change in vision <Ivett Rodas MEDICAL STAFF COORDINATOR - Last Filed: 11/21/22 16:54> ENT: Reports system reviewed and no additional complaints, except as documented, Reports dizziness, Reports otalgia, Denies headache(s), Denies nasal congestion, Denies nasal discharge and Denies neck pain <Ivett Rodas MEDICAL STAFF COORDINATOR - Last Filed: 11/21/22 16:54> Cardiovascular: Cardiovascular: Reports no additional cardiovascular complaints, Denies chest pain, Denies leg edema and Denies dyspnea <Ivett Rodas MEDICAL STAFF COORDINATOR - Last Filed: 11/21/22 16:54> Respiratory: Respiratory: Reports no additional respiratory complaints, Denies cough and Denies dyspnea <Ivett Rodas MEDICAL STAFF COORDINATOR - Last Filed: 11/21/22 16:54> Gastrointestinal: Gastrointestinal: Reports no additional gastrointestinal c omplaints, Reports abdominal pain, Denies diarrhea, Reports nausea and Denies vomiting <Ivett Rodas MEDICAL STAFF COORDINATOR - Last Filed: 11/21/22 16:54> Genitourinary: Genitourinary: Reports no additional female genitourinary complaints and Denies urinary incontinence <Ivett Rodas MEDICAL STAFF COORDINATOR - Last Filed: 11/21/22 16:54> Musculoskeletal: Musculoskeletal: Reports no additional musculoskeletal complaints, Denies back pain, Denies arthralgias, Denies joint swelling, Denies neck pain, Denies numbness and Denies tingling <Ivett Rodas MEDICAL STAFF COORDINATOR - Last Filed: 11/21/22 16:54> Integumentary/Breasts: Skin/Breast: Reports system reviewed and no additional complaints, except as docu and Denies rash <Ivett Rodas MEDICAL STAFF COORDINATOR - Last Filed: 11/21/22 16:54> Neurologic: Reports system reviewed and no additional complaints, except as documented, Denies Abnormal speech present, Reports dizziness, Denies headache(s), Denies numbness, Denies tingling and Denies weakness <Ivett Rodas NP - Last Filed: 11/21/22 16:54> [facility]LY [facility] Past Medical History Attestation statement: The following information was validated with the patient. <Ivett Rodas NP - Last Filed: 11/21/22 16:54> Source: old records reviewed and nursing notes reviewed <Ivett Rodas NP - Last Filed: 11/21/22 16:54> Medical History: Medical History Atrial fibrillation HTN (hypertension) Hyperlipidemia Osteoporosis Paroxysmal atrial fibrillation Rectocele Sinus bradycardia Uterine prolapse <NICHOLAS Ayers - Last Filed: 11/21/22 12:29> Surgical History: Surgical History History of cholecystectomy Hx of tubal ligation <NICHOLAS Ayers - Last Filed: 11/21/22 12:29> Family History Family History: Family History Father CVD (cardiovascular disease) Mother CVD (cardiovascular disease) Diabetes Other Substance use disorder <NICHOLAS Ayers - Last Filed: 11/21/22 12:29> Social History Social History: Social History Household Members: Family Housing: House Do you presently have visiting nurse or other home services: No Alcohol intake: unknown Patient Tobacco Use Status: Former Tobacco user Tobacco use type: Cigarette e-Cigarette/Vaping Use: Never Used service: No Current occupational status: retired 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 Current occupational exposures/hazards: No Cognitive needs: No Hearing needs: No Vision needs: Yes <NICHOLAS Ayers - Last Filed: 11/21/22 12:29> Physical Exam Vital Signs: Vital Signs: Last Vital Signs Temp 98.2 F 11/21/22 16:00 Pulse 63 11/21/22 16:00 Resp 16 11/21/22 16:00 BP 153/69 H 11/21/22 16:00 Pulse Ox 96 11/21/22 16:00 O2 Del Method 11/21/22 16:00 BMI result Body Mass Index 32.1 <NICHOLAS Ayers - Last Filed: 11/21/22 12:29> Vital Signs: Last Vital Signs Temp 98.2 F 11/21/22 16:00 Pulse 63 11/21/22 16:00 Resp 16 11/21/22 16:00 BP 153/69 H 11/21/22 16:00 Pulse Ox 96 11/21/22 16:00 O2 Del Method 11/21/22 16:00 BMI result Body Mass Index 32.1 <Ivett Rodas NP - Last Filed: 11/21/22 16:54> Const: General: cooperative, healthy appearing, comfortable and no acute distress <Ivett Rodas NP - Last Filed: 11/21/22 16:54> Orientation/consciousness: patient oriented x3 <Ivett Rodas NP - Last Filed: 11/21/22 16:54> Limitations: no limitations <Ivett Rodas NP - Last Filed: 11/21/22 16:54> HEENT: Head: Yes normal to inspection <Ivett Rodas NP - Last Filed: 11/21/22 16:54> Ears: hearing grossly normal bilaterally, mastoids normal, no periauricular adenopathy and other (Bilateral TM effusions. No erythema or bulging.) <Ivett Rodas NP - Last Filed: 11/21/22 16:54> General nose exam: Normal external nose present <Ivett Rodas NP - Last Filed: 11/21/22 16:54> Face and sinus: Yes normal facial exam <Ivett Rodas NP - Last Filed: 11/21/22 16:54> Mouth: Normal oral and palatal mucosa present <Ivett Rodas NP - Last Filed: 11/21/22 16:54> Throat: Yes posterior oropharynx normal, Yes tonsils normal and Yes uvula midline <Ivett Rodas NP - Last Filed: 11/21/22 16:54> Eyes: General: appearance normal, both eyes and all related structures <Ivett Rodas NP - Last Filed: 11/21/22 16:54> Pupils: Equal, round and reactive pupils present <Ivett Rodas MEDICAL STAFF COORDINATOR - Last Filed: 11/21/22 16:54> Neck: Neck: Yes normal visual inspection, Yes full ROM, Yes no lymphadenopathy and Yes no meningeal signs <Ivett Rodas MEDICAL STAFF COORDINATOR - Last Filed: 11/21/22 16:54> Chest: Chest palpation & inspection: normal inspection of the chest <Ivett Rodas MEDICAL STAFF COORDINATOR - Last Filed: 11/21/22 16:54> Resp: Effort & Inspection: normal respiratory effort <Ivett Rodas MEDICAL STAFF COORDINATOR - Last Filed: 11/21/22 16:54> Auscultation: clear to auscultation bilaterally <Ivett Rodas MEDICAL STAFF COORDINATOR - Last Filed: 11/21/22 16:54> Cardio: Rate: regular rate <Ivett Rodas MEDICAL STAFF COORDINATOR - Last Filed: 11/21/22 16:54> Rhythm: regular rhythm <Ivett Rodas MEDICAL STAFF COORDINATOR - Last Filed: 11/21/22 16:54> Peripheral pulses: Peripheral pulses 2+ throughout <Ivett Rodas MEDICAL STAFF COORDINATOR - Last Filed: 11/21/22 16:54> GI: Inspection: Yes normal to inspection <Ivett Rodas MEDICAL STAFF COORDINATOR - Last Filed: 11/21/22 16:54> Palpation (GI): Soft to palpation and nontender <Ivett Rodas MEDICAL STAFF COORDINATOR - Last Filed: 11/21/22 16:54> Auscultation: normal bowel sounds <Ivett Rodas MEDICAL STAFF COORDINATOR - Last Filed: 11/21/22 16:54> Back/Spine/Pelvis: Thoracic/Lumbar Spine: thoracic and lumbar spine normal to inspection <Ivett Rodas MEDICAL STAFF COORDINATOR - Last Filed: 11/21/22 16:54> Skin: General skin exam: no rashes or lesions noted <Ivett Rodas MEDICAL STAFF COORDINATOR - Last Filed: 11/21/22 16:54> Neuro: General: patient oriented x3, no meningeal signs, no focal motor deficits and normal sensation to monofilament <Ivett Rodas MEDICAL STAFF COORDINATOR - Last Filed: 11/21/22 16:54> Cranial nerves: Yes Equal, round and reactive pupils present <Ivett Rodas MEDICAL STAFF COORDINATOR - Last Filed: 11/21/22 16:54> Cognition (Neuro): normal cognition <Ivett Rodas MEDICAL STAFF COORDINATOR - Last Filed: 11/21/22 16:54> Speech: No Abnormal speech present <Ivett Rodas, MEDICAL STAFF COORDINATOR - Last Filed: 11/21/22 16:54> Gait exam (Neuro): Normal gait present <Ivett Adrianna, MEDICAL STAFF COORDINATOR - Last Filed: 11/21/22 16:54> Motor exam (neuro): 5/5 motor strength present throughout <Ivett Adrianna, MEDICAL STAFF COORDINATOR - Last Filed: 11/21/22 16:54> Extrem: General: Yes normal to inspection and Yes no calf tenderness <Ivett Rodas, MEDICAL STAFF COORDINATOR - Last Filed: 11/21/22 16:54> NIH Stroke Scale Internal: Initial- Upon Arrival <Ivett Rodas MEDICAL STAFF COORDINATOR - Last Filed: 11/21/22 16:54> Level of Consciousness: Alert <Ivett Rodas, MEDICAL STAFF COORDINATOR - Last Filed: 11/21/22 16:54> Level of Consciousness Questions: Answers both questions correctly <Ivett Rodas MEDICAL STAFF COORDINATOR - Last Filed: 11/21/22 16:54> Level of Consciousness Commands: Performs both tasks correctly <Ivett Rodas MEDICAL STAFF COORDINATOR - Last Filed: 11/21/22 16:54> Best Gaze: Normal <Ivett Rodas MEDICAL STAFF COORDINATOR - Last Filed: 11/21/22 16:54> Visual: No visual loss <Ivett Rodas, MEDICAL STAFF COORDINATOR - Last Filed: 11/21/22 16:54> Facial Palsy: Normal <Ivett Adrianna, MEDICAL STAFF COORDINATOR - Last Filed: 11/21/22 16:54> Motor Arm (Right): No drift <Ivett Adrianna, MEDICAL STAFF COORDINATOR - Last Filed: 11/21/22 16:54> Motor Arm (Left): No drift <Ivett Adrianna, MEDICAL STAFF COORDINATOR - Last Filed: 11/21/22 16:54> Motor Leg (Right): No drift <Ivett Adrianna, MEDICAL STAFF COORDINATOR - Last Filed: 11/21/22 16:54> Motor Leg (Left): No drift <Ivett Rodas NP - Last Filed: 11/21/22 16:54> Limb Ataxia: Absent <Ivett Rodas NP - Last Filed: 11/21/22 16:54> Sensory: Normal <Ivett Rodas NP - Last Filed: 11/21/22 16:54> Best Language: No aphasia <Ivett Rodas NP - Last Filed: 11/21/22 16:54> Dysarthia: Normal <Ivett Rodas NP - Last Filed: 11/21/22 16:54> Extinction and Inattention: No abnormality <Ivett Rodas NP - Last Filed: 11/21/22 16:54> Score: 0 <Ivett Rodas NP - Last Filed: 11/21/22 16:54> Course Course Course Narrative: RME-12:30PM 82yoF with a PMHx of atrial fibrillation on Coumadin last took last night who is presenting to the ER with complaints of sudden onset of epigastric abdominal pain with associated lightheadedness, difficulty walking in feeling a pooling on the right side of her head with associated left upper extremity weakness sensation per the patient. This started approximately 30 minutes prior to arrival around 11:45am-12 noon. On exam she is alert and oriented x3. No obvious facial deficit. Facial is symmetrical bilaterally. Cranial nerves are intact. She has 5/5 strength to bilateral upper extremities. 5/5 strength to lower extremities. Normal steady a although patient feels like she is going to fall over. Negative pronator drift. NIH SS score is 0 at this time. Patient would not be a tPA candidate as she has non disabling symptoms. Plan: patient brought directly to the ER for labs, EKG, chest x-ray and a CT scan of brain. <NICHOLAS Ayers - Last Filed: 11/21/22 12:29> Reevaluation(s) Reevaluation #1: CT head is negative. Patient with normal neurological exam including cerebellar test. Patient walks with a steady gait. Low concern for CVA including cerebellar infarct. Patient had improvement with meclizine. She has bilateral TM effusions. This is likely the cause of her dizziness. Patient will be sent home with meclizine p.r.n.. In regards to her abdominal pain she has had no additional episodes since being here in the emergency room. She is tolerating p.o. fluids with no reports of vomiting. She reports similar episodes in the past. She is status post cholecystectomy. Abdomen soft nontender. Low concern for intra-abdominal pathology. Labs are normal including troponin x2, EKG normal. Patient is currently taking Augmentin for an ear infection and has no evidence of otitis media on exam is I recommended she discontinue this. Plan for discharge home. Recommend follow-up with primary care outpatient. Reviewed worrisome signs and symptoms of when to return to the emergency room. Comfortable plan for discharge home. <Ivett Rodas NP - Last Filed: 11/21/22 16:54> Medications Administered Discontinued Medications Generic Name Dose Route Start Last Admin Trade Name Freq PRN Reason Stop Dose Admin Meclizine HCl 50 mg 11/21/22 13:05 11/21/22 13:18 Meclizine Hcl 25 Mg Tablet PO 11/21/22 13:06 50 mg ONCE ONE Administration <NICHOLAS Ayers - Last Filed: 11/21/22 12:29> Medications Administered Discontinued Medications Generic Name Dose Route Start Last Admin Trade Name Freq PRN Reason Stop Dose Admin Meclizine HCl 50 mg 11/21/22 13:05 11/21/22 13:18 Meclizine Hcl 25 Mg Tablet PO 11/21/22 13:06 50 mg ONCE ONE Administration <Ivett Rodas NP - Last Filed: 11/21/22 16:54> Medical Decision Making Medical Decision Making MDM Narrative: This is a 82-year-old female who presents to the emergency room with complaints of episode of upper abdominal pain which occurred at rest with associated nausea and is now resolved. No other associated symptoms. Patient also complaining of feeling dizzy for the last few days with some pain in her right ear despite starting Augmentin. Patient reports this is when she moves around or moves her head. On arrival lungs are clear. Vital stable. Normal neuro exam with no focal findings. Patient will have labs, EKG, CT head, chest x-ray, COVID testing <Ivett Rodas NP - Last Filed: 11/21/22 16:54> Differential Diagnosis Differential Diagnoses: The differential diagnosis associated with the presentation includes <Ivett Rodas NP - Last Filed: 11/21/22 16:54> ACS Less likely acute cholecystitis or cholelithiasis is patient has an absent gallbladder Vertigo, ICH versus CVA <Ivett Rodas NP - Last Filed: 11/21/22 16:54> Lab Data MDM Lab Attestation statement: I reviewed the patient's lab results. <Ivett Rodas NP - Last Filed: 11/21/22 16:54> Result Diagrams: 11/21/22 12:46 11/21/22 12:46 <NICHOLAS Ayers - Last Filed: 11/21/22 12:29> Labs: Lab Results 11/21/22 11/21/22 11/21/22 Range/Units 12:43 12:46 12:46 WBC 9.9 (4.8-10.8) X10*3/uL RBC 5.02 (4.20-5.50) X10*6/uL Hgb 14.9 (12.0-16.0) g/dl Hct 44.1 (37.0-47.0) % MCV 87.8 (80.0-98.0) fL MCH 29.7 (27.0-33.0) pg MCHC 33.8 (31.0-35.0) g/dl RDW 13.1 (11.0-16.0) % Plt Count 211 (160-400) X10*3/uL MPV 10.2 (9.4-12.3) fL Immature Gran % (Auto) 0.2 (0.0-0.4) % Neut % (Auto) 40.5 L (45-73) % Lymph % (Auto) 48.1 H (20-40) % Rogers % (Auto) 8.5 (2-11) % Eos % (Auto) 2.3 (0-4) % Baso % (Auto) 0.4 (0-2) % Lymph # (Auto) 4.8 (1.2-4.9) X10*3/uL Rogers # (Auto) 0.8 (0.1-1.2) X10*3/uL Eos # (Auto) 0.2 (0.0-0.4) X10*3/uL Baso # (Auto) 0.0 (0.0-0.2) X10*3/uL Abs Immat Gran (auto) 0.02 (0.00-0.03) X10*3/uL Absolute Neuts (auto) 4.0 (2.0-8.3) x10*3/uL Absolute Nucleated RBC 0.000 (0.0-0.012) X10*3/uL Nucleated RBC % (auto) 0.0 (0.0-0.2) /100WBC PT 29.8 H (10.0-13.1) SEC INR 2.5 H (0.9-1.1) Sodium (135-145) mmol/L Potassium (3.3-5.1) mmol/L Chloride (96-108) mmol/L Carbon Dioxide (22-29) mmol/L Anion Gap (12-20) BUN (9-16) mg/dL Creatinine (0.5-1.4) mg/dL Estim Creat Clear Calc Estimated GFR Random Glucose (60-115) mg/dL Calcium (8.4-10.2) mg/dL Magnesium (1.6-2.6) mg/dL Total Bilirubin (0.0-1.0) mg/dL AST (5-31) U/L ALT (0-31) U/L Alkaline Phosphatase (39-117) U/L Troponin I High Sens (<3.5-17.0) ng/L Total Protein (6.5-8.0) g/dL Albumin (3.5-5.0) g/dL Lipase (8-78) U/L Urine Color Urine Appearance Urine pH (5.0-9.0) Ur Specific [place] (1.005-1.025) Urine Protein (Neg-Trace) mg/dL Urine Glucose (UA) (Negative) mg/dL Urine Ketones (Negative) mg/dL Urine Blood (Negative) Urine Nitrite (Negative) Ur Leukocyte Esterase (Negative) Influenza Type A (PCR) NEGATIVE (Negative) Influenza Type B (PCR) NEGATIVE (Negative) RSV RNA Qual (PCR) NEGATIVE (Negative) SARS-CoV-2 RNA (RT-PCR) NEGATIVE (Negative) 11/21/22 11/21/22 11/21/22 Range/Units 12:46 12:46 15:34 WBC (4.8-10.8) X10*3/uL RBC (4.20-5.50) X10*6/uL Hgb (12.0-16.0) g/dl Hct (37.0-47.0) % MCV (80.0-98.0) fL MCH (27.0-33.0) pg MCHC (31.0-35.0) g/dl RDW (11.0-16.0) % Plt Count (160-400) X10*3/uL MPV (9.4-12.3) fL Immature Gran % (Auto) (0.0-0.4) % Neut % (Auto) (45-73) % Lymph % (Auto) (20-40) % Rogers % (Auto) (2-11) % Eos % (Auto) (0-4) % Baso % (Auto) (0-2) % Lymph # (Auto) (1.2-4.9) X10*3/uL Rogers # (Auto) (0.1-1.2) X10*3/uL Eos # (Auto) (0.0-0.4) X10*3/uL Baso # (Auto) (0.0-0.2) X10*3/uL Abs Immat Gran (auto) (0.00-0.03) X10*3/uL Absolute Neuts (auto) (2.0-8.3) x10*3/uL Absolute Nucleated RBC (0.0-0.012) X10*3/uL Nucleated RBC % (auto) (0.0-0.2) /100WBC PT (10.0-13.1) SEC INR (0.9-1.1) Sodium 141 (135-145) mmol/L Potassium 4.1 (3.3-5.1) mmol/L Chloride 109 H (96-108) mmol/L Carbon Dioxide 21 L (22-29) mmol/L Anion Gap 15 (12-20) BUN 26 H (9-16) mg/dL Creatinine 0.98 (0.5-1.4) mg/dL Estim Creat Clear Calc 41.6 Estimated GFR 54 Random Glucose 115 (60-115) mg/dL Calcium 9.7 (8.4-10.2) mg/dL Magnesium 2.2 (1.6-2.6) mg/dL Total Bilirubin 1.4 H (0.0-1.0) mg/dL AST 20 (5-31) U/L ALT 21 (0-31) U/L Alkaline Phosphatase 99 (39-117) U/L Troponin I High Sens < 3.5 < 3.5 (<3.5-17.0) ng/L Total Protein 6.8 (6.5-8.0) g/dL Albumin 4.3 (3.5-5.0) g/dL Lipase 25 (8-78) U/L Urine Color Urine Appearance Urine pH (5.0-9.0) Ur Specific [place] (1.005-1.025) Urine Protein (Neg-Trace) mg/dL Urine Glucose (UA) (Negative) mg/dL Urine Ketones (Negative) mg/dL Urine Blood (Negative) Urine Nitrite (Negative) Ur Leukocyte Esterase (Negative) Influenza Type A (PCR) (Negative) Influenza Type B (PCR) (Negative) RSV RNA Qual (PCR) (Negative) SARS-CoV-2 RNA (RT-PCR) (Negative) 11/21/22 Range/Units 16:28 WBC (4.8-10.8) X10*3/uL RBC (4.20-5.50) X10*6/uL Hgb (12.0-16.0) g/dl Hct (37.0-47.0) % MCV (80.0-98.0) fL MCH (27.0-33.0) pg MCHC (31.0-35.0) g/dl RDW (11.0-16.0) % Plt Count (160-400) X10*3/uL MPV (9.4-12.3) fL Immature Gran % (Auto) (0.0-0.4) % Neut % (Auto) (45-73) % Lymph % (Auto) (20-40) % Rogers % (Auto) (2-11) % Eos % (Auto) (0-4) % Baso % (Auto) (0-2) % Lymph # (Auto) (1.2-4.9) X10*3/uL Rogers # (Auto) (0.1-1.2) X10*3/uL Eos # (Auto) (0.0-0.4) X10*3/uL Baso # (Auto) (0.0-0.2) X10*3/uL Abs Immat Gran (auto) (0.00-0.03) X10*3/uL Absolute Neuts (auto) (2.0-8.3) x10*3/uL Absolute Nucleated RBC (0.0-0.012) X10*3/uL Nucleated RBC % (auto) (0.0-0.2) /100WBC PT (10.0-13.1) SEC INR (0.9-1.1) Sodium (135-145) mmol/L Potassium (3.3-5.1) mmol/L Chloride (96-108) mmol/L Carbon Dioxide (22-29) mmol/L Anion Gap (12-20) BUN (9-16) mg/dL Creatinine (0.5-1.4) mg/dL Estim Creat Clear Calc Estimated GFR Random Glucose (60-115) mg/dL Calcium (8.4-10.2) mg/dL Magnesium (1.6-2.6) mg/dL Total Bilirubin (0.0-1.0) mg/dL AST (5-31) U/L ALT (0-31) U/L Alkaline Phosphatase (39-117) U/L Troponin I High Sens (<3.5-17.0) ng/L Total Protein (6.5-8.0) g/dL Albumin (3.5-5.0) g/dL Lipase (8-78) U/L Urine Color Yellow Urine Appearance Clear Urine pH 7.5 (5.0-9.0) Ur Specific [place] 1.010 (1.005-1.025) Urine Protein Negative (Neg-Trace) mg/dL Urine Glucose (UA) Negative (Negative) mg/dL Urine Ketones Negative (Negative) mg/dL Urine Blood Negative (Negative) Urine Nitrite Negative (Negative) Ur Leukocyte Esterase Small (1+) H (Negative) Influenza Type A (PCR) (Negative) Influenza Type B (PCR) (Negative) RSV RNA Qual (PCR) (Negative) SARS-CoV-2 RNA (RT-PCR) (Negative) <NICHOLAS Ayers - Last Filed: 11/21/22 12:29> Lab Results 11/21/22 11/21/22 11/21/22 Range/Units 12:43 12:46 12:46 WBC 9.9 (4.8-10.8) X10*3/uL RBC 5.02 (4.20-5.50) X10*6/uL Hgb 14.9 (12.0-16.0) g/dl Hct 44.1 (37.0-47.0) % MCV 87.8 (80.0-98.0) fL MCH 29.7 (27.0-33.0) pg MCHC 33.8 (31.0-35.0) g/dl RDW 13.1 (11.0-16.0) % Plt Count 211 (160-400) X10*3/uL MPV 10.2 (9.4-12.3) fL Immature Gran % (Auto) 0.2 (0.0-0.4) % Neut % (Auto) 40.5 L (45-73) % Lymph % (Auto) 48.1 H (20-40) % Rogers % (Auto) 8.5 (2-11) % Eos % (Auto) 2.3 (0-4) % Baso % (Auto) 0.4 (0-2) % Lymph # (Auto) 4.8 (1.2-4.9) X10*3/uL Rogers # (Auto) 0.8 (0.1-1.2) X10*3/uL Eos # (Auto) 0.2 (0.0-0.4) X10*3/uL Baso # (Auto) 0.0 (0.0-0.2) X10*3/uL Abs Immat Gran (auto) 0.02 (0.00-0.03) X10*3/uL Absolute Neuts (auto) 4.0 (2.0-8.3) x10*3/uL Absolute Nucleated RBC 0.000 (0.0-0.012) X10*3/uL Nucleated RBC % (auto) 0.0 (0.0-0.2) /100WBC PT 29.8 H (10.0-13.1) SEC INR 2.5 H (0.9-1.1) Sodium (135-145) mmol/L Potassium (3.3-5.1) mmol/L Chloride (96-108) mmol/L Carbon Dioxide (22-29) mmol/L Anion Gap (12-20) BUN (9-16) mg/dL Creatinine (0.5-1.4) mg/dL Estim Creat Clear Calc Estimated GFR Random Glucose (60-115) mg/dL Calcium (8.4-10.2) mg/dL Magnesium (1.6-2.6) mg/dL Total Bilirubin (0.0-1.0) mg/dL AST (5-31) U/L ALT (0-31) U/L Alkaline Phosphatase (39-117) U/L Troponin I High Sens (<3.5-17.0) ng/L Total Protein (6.5-8.0) g/dL Albumin (3.5-5.0) g/dL Lipase (8-78) U/L Urine Color Urine Appearance Urine pH (5.0-9.0) Ur Specific [place] (1.005-1.025) Urine Protein (Neg-Trace) mg/dL Urine Glucose (UA) (Negative) mg/dL Urine Ketones (Negative) mg/dL Urine Blood (Negative) Urine Nitrite (Negative) Ur Leukocyte Esterase (Negative) Influenza Type A (PCR) NEGATIVE (Negative) Influenza Type B (PCR) NEGATIVE (Negative) RSV RNA Qual (PCR) NEGATIVE (Negative) SARS-CoV-2 RNA (RT-PCR) NEGATIVE (Negative) 11/21/22 11/21/22 11/21/22 Range/Units 12:46 12:46 15:34 WBC (4.8-10.8) X10*3/uL RBC (4.20-5.50) X10*6/uL Hgb (12.0-16.0) g/dl Hct (37.0-47.0) % MCV (80.0-98.0) fL MCH (27.0-33.0) pg MCHC (31.0-35.0) g/dl RDW (11.0-16.0) % Plt Count (160-400) X10*3/uL MPV (9.4-12.3) fL Immature Gran % (Auto) (0.0-0.4) % Neut % (Auto) (45-73) % Lymph % (Auto) (20-40) % Rogers % (Auto) (2-11) % Eos % (Auto) (0-4) % Baso % (Auto) (0-2) % Lymph # (Auto) (1.2-4.9) X10*3/uL Rogers # (Auto) (0.1-1.2) X10*3/uL Eos # (Auto) (0.0-0.4) X10*3/uL Baso # (Auto) (0.0-0.2) X10*3/uL Abs Immat Gran (auto) (0.00-0.03) X10*3/uL Absolute Neuts (auto) (2.0-8.3) x10*3/uL Absolute Nucleated RBC (0.0-0.012) X10*3/uL Nucleated RBC % (auto) (0.0-0.2) /100WBC PT (10.0-13.1) SEC INR (0.9-1.1) Sodium 141 (135-145) mmol/L Potassium 4.1 (3.3-5.1) mmol/L Chloride 109 H (96-108) mmol/L Carbon Dioxide 21 L (22-29) mmol/L Anion Gap 15 (12-20) BUN 26 H (9-16) mg/dL Creatinine 0.98 (0.5-1.4) mg/dL Estim Creat Clear Calc 41.6 Estimated GFR 54 Random Glucose 115 (60-115) mg/dL Calcium 9.7 (8.4-10.2) mg/dL Magnesium 2.2 (1.6-2.6) mg/dL Total Bilirubin 1.4 H (0.0-1.0) mg/dL AST 20 (5-31) U/L ALT 21 (0-31) U/L Alkaline Phosphatase 99 (39-117) U/L Troponin I High Sens < 3.5 < 3.5 (<3.5-17.0) ng/L Total Protein 6.8 (6.5-8.0) g/dL Albumin 4.3 (3.5-5.0) g/dL Lipase 25 (8-78) U/L Urine Color Urine Appearance Urine pH (5.0-9.0) Ur Specific [place] (1.005-1.025) Urine Protein (Neg-Trace) mg/dL Urine Glucose (UA) (Negative) mg/dL Urine Ketones (Negative) mg/dL Urine Blood (Negative) Urine Nitrite (Negative) Ur Leukocyte Esterase (Negative) Influenza Type A (PCR) (Negative) Influenza Type B (PCR) (Negative) RSV RNA Qual (PCR) (Negative) SARS-CoV-2 RNA (RT-PCR) (Negative) 11/21/22 Range/Units 16:28 WBC (4.8-10.8) X10*3/uL RBC (4.20-5.50) X10*6/uL Hgb (12.0-16.0) g/dl Hct (37.0-47.0) % MCV (80.0-98.0) fL MCH (27.0-33.0) pg MCHC (31.0-35.0) g/dl RDW (11.0-16.0) % Plt Count (160-400) X10*3/uL MPV (9.4-12.3) fL Immature Gran % (Auto) (0.0-0.4) % Neut % (Auto) (45-73) % Lymph % (Auto) (20-40) % Rogers % (Auto) (2-11) % Eos % (Auto) (0-4) % Baso % (Auto) (0-2) % Lymph # (Auto) (1.2-4.9) X10*3/uL Rogers # (Auto) (0.1-1.2) X10*3/uL Eos # (Auto) (0.0-0.4) X10*3/uL Baso # (Auto) (0.0-0.2) X10*3/uL Abs Immat Gran (auto) (0.00-0.03) X10*3/uL Absolute Neuts (auto) (2.0-8.3) x10*3/uL Absolute Nucleated RBC (0.0-0.012) X10*3/uL Nucleated RBC % (auto) (0.0-0.2) /100WBC PT (10.0-13.1) SEC INR (0.9-1.1) Sodium (135-145) mmol/L Potassium (3.3-5.1) mmol/L Chloride (96-108) mmol/L Carbon Dioxide (22-29) mmol/L Anion Gap (12-20) BUN (9-16) mg/dL Creatinine (0.5-1.4) mg/dL Estim Creat Clear Calc Estimated GFR Random Glucose (60-115) mg/dL Calcium (8.4-10.2) mg/dL Magnesium (1.6-2.6) mg/dL Total Bilirubin (0.0-1.0) mg/dL AST (5-31) U/L ALT (0-31) U/L Alkaline Phosphatase (39-117) U/L Troponin I High Sens (<3.5-17.0) ng/L Total Protein (6.5-8.0) g/dL Albumin (3.5-5.0) g/dL Lipase (8-78) U/L Urine Color Yellow Urine Appearance Clear Urine pH 7.5 (5.0-9.0) Ur Specific [place] 1.010 (1.005-1.025) Urine Protein Negative (Neg-Trace) mg/dL Urine Glucose (UA) Negative (Negative) mg/dL Urine Ketones Negative (Negative) mg/dL Urine Blood Negative (Negative) Urine Nitrite Negative (Negative) Ur Leukocyte Esterase Small (1+) H (Negative) Influenza Type A (PCR) (Negative) Influenza Type B (PCR) (Negative) RSV RNA Qual (PCR) (Negative) SARS-CoV-2 RNA (RT-PCR) (Negative) <Ivett Rodas NP - Last Filed: 11/21/22 16:54> Independent Interpretation I performed an independent interpretation of an: EKG, Plain X-Ray and CT Scan <Ivett Rodas NP - Last Filed: 11/21/22 16:54> Interpretation: I independently reviewed the EKG which shows sinus rhythm with PACs, rate of 67, normal WA, normal QRS, no QT <SHAUN Copeland Last Filed: 11/21/22 16:54> Radiology Impression Discussion of test interpretation with radiology: I have reviewed the radiologist's reading. <Ivett Rodas, SHAUN - Last F iled: 11/21/22 16:54> Discharge Plan Discharge Clinical Impression: Vertigo <NICHOLAS Ayers - Last Filed: 11/21/22 12:29> Patient Disposition: Home, Self-Care <NICHOLAS Ayers - Last Filed: 11/21/22 12:29> Instructions: Vertigo (ED) <NICHOLAS Ayers - Last Filed: 11/21/22 12:29> Additional Instructions: Stop taking the antibiotic Use the meclizine as needed for dizziness Follow-up with primary care doctor as discussed Your CT scan is normal looking. Your lab work and EKG are all normal as well. <NICHOLAS Ayers - Last Filed: 11/21/22 12:29> Prescriptions: New meclizine 25 mg tablet 25 mg PO TID PRN (Reason: dizziness) Qty: 15 0RF No Action metoprolol tartrate 50 mg tablet 25 mg PO BID Qty: 180 3RF nystatin [Nystop] 100,000 unit/gram powder 1 appl topical BID PRN (Reason: rash) Qty: 30 1RF Multaq 400 mg tablet 400 mg PO BID Qty: 60 5RF furosemide 20 mg tablet 20 mg PO DAILY Qty: 30 4RF amlodipine 10 mg tablet 10 mg PO DAILY Qty: 90 3RF atorvastatin 40 mg tablet 40 mg PO DAILY Qty: 90 3RF warfarin 5 mg tablet 5 mg PO DAILY Qty: 100 3RF Protocol: Dose Management Condition: Thursday (Week One) Dose/Route: 2.5 mg Instruction: 0.5 x 5 mg tablets Condition: Thursday Dose/Route: 2.5 mg Instruction: 0.5 x 5 mg tablets Condition: Thursday Dose/Route: 2.5 mg Instruction: 0.5 x 5 mg tablets Condition: Thursday Dose/Route: 2.5 mg Instruction: 0.5 x 5 mg tablets Condition: Dose/Route: 2.5 mg Instruction: 0.5 x 5 mg tablets Condition: Thursday Dose/Route: 2.5 mg Instruction: 0.5 x 5 mg tablets Condition: Thursday Dose/Route: 2.5 mg Instruction: 0.5 x 5 mg tablets Condition: Thursday (Week Two) Dose/Route: 2.5 mg Instruction: 0.5 x 5 mg tablets Condition: Thursday Dose/Route: 2.5 mg Instruction: 0.5 x 5 mg tablets Condition: Thursday Dose/Route: 2.5 mg Instruction: 0.5 x 5 mg tablets Condition: Thursday Dose/Route: 2.5 mg Instruction: 0.5 x 5 mg tablets Condition: Dose/Route: 2.5 mg Instruction: 0.5 x 5 mg tablets Condition: Thursday Dose/Route: 2.5 mg Instruction: 0.5 x 5 mg tablets Condition: Thursday Dose/Route: 2.5 mg Instruction: 0.5 x 5 mg tablets Protocol Text: Adjustment Start Date: Thursday11/11/22 INR Value: 2.9 INR Date: 11/11/22 Recheck Date: 12/09/22 Additional Instructions: cont reg dosing balance reds and greens call with any medication changes triamcinolone acetonide 0.1 % cream 1 appl topical BID Qty: 80 3RF albuterol sulfate 90 mcg/actuation HFA aerosol inhaler 2 puff inhalation Q6H PRN (Reason: shortness of breath or wheezing) Qty: 6.7 0RF benzonatate 100 mg capsule 100 mg PO BID PRN (Reason: cough) Qty: 14 0RF losartan 50 mg tablet 50 mg PO DAILY Qty: 90 3RF [id number]-TM 3.5-10,000-1 mg/mL-unit/mL-% drops,suspension 4 drp otic (ear) right QID 7 Days Qty: 10 0RF amoxicillin-pot clavulanate 875-125 mg tablet 1 tab PO BID Qty: 10 0RF cholecalciferol (vitamin D3) 25 mcg (1,000 unit) capsule 25 mcg PO DAILY simethicone [Gas Relief (simethicone)] 125 mg capsule 250 mg PO BID PRN <NICHOLAS Ayers - Last Filed: 11/21/22 12:29> Referrals: Silvia Reynoso MD [Primary Care Provider] - 1 week <NICHOLAS Ayers - Last Filed: 11/21/22 12:29> Interventions: ED Discharge Assessment Last Done: 11/21/22 16:52 <NICHOLAS Ayers - Last Filed: 11/21/22 12:29>
--- NOTE | 2022-11-21 12:49 | PC.NURSE ---
Patient AOx 4 neuros intact no facial droop no deviation of tongue no slurring of words. Grasp equal 5/5 no drift noted. Some edema bilateral noted non pitting. No respiratory distress noted. Patient reports recent inner ear infection is on coumadin for afib. IV access obtained labs collected and sent.
[2022-11-21 12:50] LABS: MANUAL DIFF FLAG NO
[2022-11-21 12:52] LABS: Basophils Percent Auto 0.4 % (0-2); Eosinophils Absolute Auto 0.2 X10*3/uL (0.0-0.4); Eosinophils Percent Auto 2.3 % (0-4); Hematocrit 44.1 % (37.0-47.0); Hemoglobin 14.9 g/dl (12.0-16.0); Imm Gran Abs Auto 0.02 X10*3/uL (0.00-0.03); Imm Gran Pct Auto 0.2 % (0.0-0.4); Lymphocytes Absolute Auto 4.8 X10*3/uL (1.2-4.9); Lymphocytes Percent Auto 48.1 % (20-40); Mean Corpuscular HGB Conc 33.8 g/dl (31.0-35.0); Mean Corpuscular Hemoglobin 29.7 pg (27.0-33.0); Mean Corpuscular Volume 87.8 fL (80.0-98.0); Mean Platelet Volume 10.2 fL (9.4-12.3); Monocytes Absolute Auto 0.8 X10*3/uL (0.1-1.2); Monocytes Percent Auto 8.5 % (2-11); Neutrophils Percent Auto 40.5 % (45-73); Platelet Count 211 X10*3/uL (160-400); Red Blood Count 5.02 X10*6/uL (4.20-5.50); Red Cell Distribution Width 13.1 % (11.0-16.0); White Blood Count 9.9 X10*3/uL (4.8-10.8)
[2022-11-21 13:02] LABS: INTERNATIONAL NORM RATIO 2.5 (0.9-1.1); Prothrombin Time 29.8 SEC (10.0-13.1)
[2022-11-21 13:11] LABS: Alanine Aminotransferase 21 U/L (0-31); Albumin Level 4.3 g/dL (3.5-5.0); Alkaline Phosphatase 99 U/L (39-117); Anion Gap 15 (12-20); Aspartate Amino Transferase 20 U/L (5-31); Bilirubin Total 1.4 mg/dL (0.0-1.0); Blood Urea Nitrogen 26 mg/dL (9-16); Calcium 9.7 mg/dL (8.4-10.2); Carbon Dioxide 21 mmol/L (22-29); Chloride 109 mmol/L (96-108); Creatinine Clr Calc Pharmacy 41.6; Estimated Glomerular Filt Rate 54; Glucose Random 115 mg/dL (60-115); Lipase 25 U/L (8-78); Magnesium 2.2 mg/dL (1.6-2.6); Potassium 4.1 mmol/L (3.3-5.1); Sodium 141 mmol/L (135-145); Total Protein 6.8 g/dL (6.5-8.0)
[2022-11-21 13:18] LABS: Troponin-I High Sensitivity < 3.5 ng/L (<3.5-17.0)
[2022-11-21] MEDS: Meclizine HCl 25 MG TABLET 50 MG PO (13:18)
[2022-11-21 13:41] LABS: Influenza A PCR NEGATIVE (Negative); Influenza B PCR NEGATIVE (Negative); Resp Syncy Virus RNA Qual PCR NEGATIVE (Negative); SARS COV2 PCR INHOUSE NEGATIVE (Negative)
[2022-11-21 15:58] VITALS: BP 129/58
[2022-11-21 16:00] VITALS: BP 153/69; PULSE 63; RESP 16; TEMP 36.8; O2SAT 96
[2022-11-21 16:11] LABS: Troponin-I High Sensitivity < 3.5 ng/L (<3.5-17.0)
--- NOTE | 2022-11-21 16:29 | MHC.EDTECH ---
pt urine sample send to lab .
[2022-11-21 16:37] LABS: Appearance Urine Clear; Color Urine Yellow; Glucose Urine UA Negative (Negative); Leukocyte Esterase Urine Small (1+) (Negative); Nitrite Urine Negative (Negative); PH 7.5 (5.0-9.0); UMIC TRIGGER UACC YES; Urine Blood Negative (Negative); Urine Ketones Negative (Negative); Urine Protein Negative (Neg-Trace)
[2022-11-21 16:58] LABS: Bacteria Urine None Seen (None Seen); Hyaline Casts Urine 0-2 /LPF (0-2); RBC Urine 0-2 /HPF (0-2); UACC Culture Trigger YES; WBC Urine 0-5 /HPF (0-5)
== END 2022-11-21 16:52 | disposition home or self-care (01) ==
PROVIDERS: Nurse Practitioner Family; Physician Assistant Medical; Emergency Provider Emergency Medicine; PCP Internal Medicine
DX: R42 Dizziness and giddiness (principal); Z20.822 Contact with and (suspected) exposure to COVID-19; Z20.828 Contact with and (suspected) exposure to other viral communicable diseases; I10 Essential (primary) hypertension; I48.0 Paroxysmal atrial fibrillation; E78.5 Hyperlipidemia, unspecified; Z79.01 Long term (current) use of anticoagulants; Z79.02 Long term (current) use of antithrombotics/antiplatelets; Z79.899 Other long term (current) drug therapy; Z87.891 Personal history of nicotine dependence
CPT/HCPCS: 0241U; 36415; 70450; 71046; 80053; 81001; 83690; 83735; 84484; 85025; 85610; 87086; 93005; 99211; 99284; 99285

== ENCOUNTER → 2022-11-25 10:07 | Outpatient (BNVA) | payer MEDICARE, SELFPAY | PROVIDERS: PCP Internal Medicine; Visit Provider Internal Medicine | DX: I48.0 Paroxysmal atrial fibrillation (principal); Z79.01 Long term (current) use of anticoagulants; Z51.81 Encounter for therapeutic drug level monitoring | CPT/HCPCS: 85610; 99211 ==

== ENCOUNTER → 2022-11-27 09:11 | Outpatient (BNVA) | payer MEDICARE, SELFPAY | PROVIDERS: PCP Internal Medicine; Referring Provider Internal Medicine; Visit Provider Internal Medicine Cardiovascular Disease | DX: Z45.018 Encounter for adjustment and management of other part of cardiac pacemaker (principal); I48.0 Paroxysmal atrial fibrillation; I10 Essential (primary) hypertension; R00.1 Bradycardia, unspecified | CPT/HCPCS: 93005; 99212 ==

== ENCOUNTER 2022-11-28 15:11 | Outpatient (REF) | payer MEDICARE, SELFPAY ==
--- NOTE | ~2022-11-28 | US_ITS ---
EXAMINATION: US EXTRACRANIAL CAROTID DUPLEX, BILATERAL CLINICAL INFORMATION: Bruit, lightheadedness COMPARISON: None TECHNIQUE: Real-time ultrasound and Doppler techniques (integrating B-mode 2-D vascular images, Doppler spectral analysis and color-flow Doppler imaging) were utilized to interrogate the extracranial carotid arteries, the vertebral arteries and proximal subclavian arteries bilaterally. The degree of stenosis is determined by criteria similar to NASCET. FINDINGS: Right Side: 1. There is mild atherosclerotic plaque seen in the bifurcation/proximal ICA region. 2. The common carotid artery PSV proximally is 102 cm/s and distally 79 cm/s. 3. The proximal internal carotid artery velocities are 87 cm/s systolic and 14 cm/s diastolic. 4. The proximal external carotid artery PSV is 125 cm/s. 5. The vertebral artery shows antegrade flow. 6. The subclavian artery waveforms are normal. Left Side: 1. There is mild atherosclerotic plaque seen in the bifurcation/proximal ICA region. 2. The common carotid artery PSV proximally is 119 cm/s and distally 93 cm/s. 3. The proximal internal carotid artery velocities are 48 cm/s systolic and 10 cm/s diastolic. 4. The proximal external carotid artery PSV is 96 cm/s. 5. The vertebral artery shows antegrade flow. 6. The subclavian artery waveforms are normal. US/US carotid duplex BI IMPRESSION: 1. RIGHT: Minimal, non-hemodynamically significant stenosis of the proximal right internal carotid artery corresponding to a 0-49% stenosis by velocity criteria. 2. LEFT: Minimal, non-hemodynamically significant stenosis of the proximal left internal carotid artery corresponding to a 0-49% stenosis by velocity criteria.
== END 2022-11-28 15:12 | disposition home or self-care (01) ==
LOC: HO.HMGCX 15:11
PROVIDERS: PCP Internal Medicine; Visit Provider Internal Medicine
DX: R09.89 Other specified symptoms and signs involving the circulatory and respiratory systems (principal); R42 Dizziness and giddiness
CPT/HCPCS: 93880

== ENCOUNTER 2022-12-03 08:49 | Outpatient (REF) | payer MEDICARE, SELFPAY ==
[2022-12-03 08:54] VITALS: BMI 31.6
[2022-12-03 08:55] VITALS: BP 141/63; PULSE 63; RESP 16; TEMP 36.4; O2SAT 97
[2022-12-03 10:25] VITALS: BP 114/53; PULSE 64; RESP 16; O2SAT 97
--- NOTE | 2022-12-03 12:15 | PM.OP ---
Brief Operative Note Date of Service: 12/03/22 Pre-op diagnosis: Implantable loop recorder in place Post-op diagnosis: same Procedure: Removal of implantable loop recorder Implants: After obtaining full informed consent patient was brought to the minor surgery. Patient was laid in supine position on the operating table. Patient's precordial area was then prepped and draped in a sterile fashion. Patient was then given 2% lidocaine with epinephrine intradermally as well as subcutaneously. A small incision was then made. The device was then removed with help of Myra. The wound was then closed with Steri-Strips and pressure dressing applied. Patient tolerated the procedure well. Minimal blood loss Surgeon: Carson Angelo MD Anesthesia: local Was an Civil Division Deputy Sheriff used for this Procedure?: No Estimated blood loss (mL): 2 Pathology: none sent Condition: stable Disposition: same day
== END 2022-12-03 08:50 | disposition home or self-care (01) ==
LOC: HO.MS 08:49
PROVIDERS: PCP Internal Medicine; Visit Provider Internal Medicine Cardiovascular Disease
PROC: (CPT 33286; principal; 2022-12-03 09:30)
DX: Z95.818 Presence of other cardiac implants and grafts (principal); Z45.09 Encounter for adjustment and management of other cardiac device
CPT/HCPCS: 33286

== ENCOUNTER → 2022-12-09 08:05 | Outpatient (BNVA) | payer MEDICARE, SELFPAY | PROVIDERS: PCP Internal Medicine; Visit Provider Internal Medicine | DX: I48.0 Paroxysmal atrial fibrillation (principal); Z79.01 Long term (current) use of anticoagulants; Z51.81 Encounter for therapeutic drug level monitoring | CPT/HCPCS: 85610; 99211 ==

== ENCOUNTER → 2022-12-12 09:54 | Outpatient (BNVA) | payer MEDICARE, SELFPAY | PROVIDERS: PCP Internal Medicine; Visit Provider Internal Medicine Cardiovascular Disease ==

== ENCOUNTER → 2022-12-15 08:20 | Outpatient (BNVA) | payer MEDICARE, SELFPAY | PROVIDERS: PCP Internal Medicine; Visit Provider Obstetrics & Gynecology | DX: Z46.89 Encounter for fitting and adjustment of other specified devices (principal) | CPT/HCPCS: 99212 ==

== ENCOUNTER → 2022-12-23 08:56 | Outpatient (BNVA) | payer MEDICARE, SELFPAY | PROVIDERS: PCP Internal Medicine; Visit Provider Internal Medicine | DX: I48.0 Paroxysmal atrial fibrillation (principal); Z79.01 Long term (current) use of anticoagulants; Z51.81 Encounter for therapeutic drug level monitoring | CPT/HCPCS: 85610; 99211 ==

== ENCOUNTER → 2023-01-20 07:57 | Outpatient (BNVA) | payer MEDICARE, SELFPAY | PROVIDERS: PCP Internal Medicine; Visit Provider Internal Medicine | DX: I48.0 Paroxysmal atrial fibrillation (principal); Z79.01 Long term (current) use of anticoagulants; Z51.81 Encounter for therapeutic drug level monitoring | CPT/HCPCS: 85610; 99211 ==

== ENCOUNTER → 2023-02-11 08:52 | Outpatient (BNVA) | payer MEDICARE, SELFPAY | PROVIDERS: PCP Internal Medicine; Visit Provider Internal Medicine | DX: I48.0 Paroxysmal atrial fibrillation (principal); Z79.01 Long term (current) use of anticoagulants; Z51.81 Encounter for therapeutic drug level monitoring | CPT/HCPCS: 85610; 99211 ==

== ENCOUNTER → 2023-02-20 09:48 | Outpatient (BNVA) | payer MEDICARE, SELFPAY | PROVIDERS: PCP Internal Medicine; Referring Provider Internal Medicine; Visit Provider Internal Medicine Cardiovascular Disease ==

== ENCOUNTER 2023-03-10 07:41 | Outpatient (REF) | payer MEDICARE, SELFPAY ==
[2023-03-10 11:21] LABS: MANUAL DIFF FLAG NO
[2023-03-10 11:34] LABS: Basophils Percent Auto 0.5 % (0-2); Eosinophils Absolute Auto 0.1 X10*3/uL (0.0-0.4); Eosinophils Percent Auto 2.5 % (0-4); Hematocrit 42.4 % (37.0-47.0); Imm Gran Abs Auto 0.01 X10*3/uL (0.00-0.03); Imm Gran Pct Auto 0.2 % (0.0-0.4); Lymphocytes Absolute Auto 2.3 X10*3/uL (1.2-4.9); Lymphocytes Percent Auto 40.5 % (20-40); Monocytes Absolute Auto 0.6 X10*3/uL (0.1-1.2); Monocytes Percent Auto 10.4 % (2-11); Neutrophils Absolute Auto 2.6 x10*3/uL (2.0-8.3); Neutrophils Percent Auto 45.9 % (45-73); Platelet Count 207 X10*3/uL (160-400); Red Blood Count 4.66 X10*6/uL (4.20-5.50); Red Cell Distribution Width 13.2 % (11.0-16.0); White Blood Count 5.7 X10*3/uL (4.8-10.8)
[2023-03-10 11:49] LABS: Estimated Average Glucose 105 mg/dL; Hemoglobin A1c % 5.3 %
[2023-03-10 12:06] LABS: Alanine Aminotransferase 15 U/L (0-31); Albumin Level 4.1 g/dL (3.5-5.0); Alkaline Phosphatase 87 U/L (39-117); Anion Gap 8 (12-20); Aspartate Amino Transferase 17 U/L (5-31); Bilirubin Total 1.4 mg/dL (0.0-1.0); Blood Urea Nitrogen 21 mg/dL (9-16); Calcium 9.8 mg/dL (8.4-10.2); Carbon Dioxide 28 mmol/L (22-29); Chloride 109 mmol/L (96-108); Cholesterol 183 mg/dL; Estimated Glomerular Filt Rate > 60; Glucose Fasting 101 mg/dL (60-99); HDL Cholesterol 45 mg/dL; LDL Cholesterol Calculated 112 mg/dl; Potassium 3.8 mmol/L (3.3-5.1); Sodium 141 mmol/L (135-145); Total Protein 6.6 g/dL (6.5-8.0); Triglycerides 132 mg/dL
[2023-03-10 12:24] LABS: TSH reflex Free T4 2.06 uIU/mL (0.32-4.0)
== END 2023-03-10 07:42 | disposition home or self-care (01) ==
LOC: HO.HMGCLDS 07:41
PROVIDERS: PCP Internal Medicine; Visit Provider Internal Medicine
DX: E78.5 Hyperlipidemia, unspecified (principal); I10 Essential (primary) hypertension; I48.0 Paroxysmal atrial fibrillation; R73.9 Hyperglycemia, unspecified
CPT/HCPCS: 36415; 80053; 80061; 83036; 84443; 85025

== ENCOUNTER → 2023-03-11 08:01 | Outpatient (BNVA) | payer MEDICARE, SELFPAY | PROVIDERS: PCP Internal Medicine; Visit Provider Internal Medicine | DX: I48.0 Paroxysmal atrial fibrillation (principal); Z79.01 Long term (current) use of anticoagulants; Z51.81 Encounter for therapeutic drug level monitoring | CPT/HCPCS: 85610; 99211 ==

== ENCOUNTER → 2023-03-16 08:45 | Outpatient (BNVA) | payer MEDICARE, SELFPAY | PROVIDERS: PCP Internal Medicine; Visit Provider Obstetrics & Gynecology | DX: N81.4 Uterovaginal prolapse, unspecified (principal); Z46.89 Encounter for fitting and adjustment of other specified devices | CPT/HCPCS: 99212 ==

== ENCOUNTER → 2023-04-08 08:00 | Outpatient (BNVA) | payer MEDICARE, SELFPAY | PROVIDERS: PCP Internal Medicine; Visit Provider Internal Medicine | DX: I48.0 Paroxysmal atrial fibrillation (principal); Z79.01 Long term (current) use of anticoagulants; Z51.81 Encounter for therapeutic drug level monitoring | CPT/HCPCS: 85610; 99211 ==

== ENCOUNTER 2023-04-13 10:07 | Outpatient (AMB) | payer MEDICARE, SELFPAY ==
--- NOTE | 2023-04-13 10:08 | MHC.OFFVISCO ---
Intake Intake Visit Reasons: Anticoagulation Allergies codeine [CODEINE] Allergy (Intermediate, Verified 04/13/23 10:08) HEADACHES hydrochlorothiazide [HYDROCHLOROTHIAZIDE] Allergy (Intermediate, Verified 04/13/23 10:08) NAUSEA & VOMITING, low K latex [LATEX] Allergy (Intermediate, Verified 04/13/23 10:08) RASH lisinopril [LISINOPRIL] Adverse Reaction (Mild, Verified 04/13/23 10:08) COUGH Medication List - Last Reconciled 04/13/23 by Adina Abebe RN amlodipine 10 mg PO DAILY atorvastatin 40 mg PO DAILY cholecalciferol (vitamin D3) 25 mcg PO DAILY dronedarone (Multaq) 400 mg PO BID furosemide 20 mg PO DAILY losartan 50 mg PO DAILY metoprolol tartrate 25 mg (1/2 x 50 mg) PO BID nystatin (Nystop) 1 appl topical BID PRN simethicone (Gas Relief (simethicone)) 250 mg PO BID PRN sulfamethoxazole-trimethoprim 800-160 mg (Bactrim DS) 1 tab PO BID 7 days triamcinolone acetonide 0.1% 1 appl topical BID warfarin 5 mg See Protocol PO DAILY Nursing Note INR 3.4-? out of therapeutic range Medications and supplements reviewed Patient status: pt on antibiotics for breast soreness Medications or supplements: bactrim bid x 7 days- last dose tomm Diet: has been eating greens while on antibiotics Denies any signs and symptoms of bleeding or clotting or unusual bruising Bleeding, bruising, clotting discussed Nutritional guidance given: cont to eat greens while on antibiotics Dose: hold today then cont 2.5mg x 7 F/U INR Date : 1 week? Patient verbalizing understanding of instructions given. Anti-Coag Initial Assessment Social Hx Patient Tobacco Use Status: Former Tobacco user Quit Date: 1971 alcohol intake: unknown Alcohol intake frequency: holidays/special occasions only Cardiovascular Hx: HTN, Arrhythmias and Other Musculoskeletal Hx: Arthritis Blood Disorder Hx: Hyperlipidemia GI Hx: Bleeding (GI, rectal) and Hemorrhoids Cancer HX: No Psych. 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
[2023-04-15 06:30] LABS: Prothrombin Time Whole Bld POC 41.2 sec (11.1-13.5); ~PT, ~INR - Anti Coag Clinic 3.4 (0.9-1.1)
== END 2023-04-13 10:21 | disposition home or self-care (01) ==
LOC: HO.ACS 10:07
PROVIDERS: PCP Internal Medicine; Visit Provider Internal Medicine
DX: Z79.01 Long term (current) use of anticoagulants (principal)

== ENCOUNTER → 2023-04-13 10:07 | Outpatient (BNVA) | payer MEDICARE, SELFPAY | PROVIDERS: PCP Internal Medicine; Visit Provider Internal Medicine | DX: I48.0 Paroxysmal atrial fibrillation (principal); Z79.01 Long term (current) use of anticoagulants; Z51.81 Encounter for therapeutic drug level monitoring | CPT/HCPCS: 85610; 99211 ==

== ENCOUNTER 2023-04-21 08:05 | Outpatient (AMB) | payer MEDICARE, SELFPAY ==
--- NOTE | 2023-04-21 08:25 | MHC.OFFVISCO ---
Intake Intake Visit Reasons: Anticoagulation Allergies codeine [CODEINE] Allergy (Intermediate, Verified 04/21/23 08:22) HEADACHES hydrochlorothiazide [HYDROCHLOROTHIAZIDE] Allergy (Intermediate, Verified 04/21/23 08:22) NAUSEA & VOMITING, low K latex [LATEX] Allergy (Intermediate, Verified 04/21/23 08:22) RASH lisinopril [LISINOPRIL] Adverse Reaction (Mild, Verified 04/21/23 08:22) COUGH Medication List - Last Reconciled 04/21/23 by Adina Abebe RN amlodipine 10 mg PO DAILY atorvastatin 40 mg PO DAILY cholecalciferol (vitamin D3) 25 mcg PO DAILY dronedarone (Multaq) 400 mg PO BID furosemide 20 mg PO DAILY losartan 50 mg PO DAILY metoprolol tartrate 25 mg (1/2 x 50 mg) PO BID nystatin (Nystop) 1 appl topical BID PRN simethicone (Gas Relief (simethicone)) 250 mg PO BID PRN triamcinolone acetonide 0.1% 1 appl topical BID warfarin 5 mg See Protocol PO DAILY Nursing Note INR: 2.1- in therapeutic range Medications and supplements reviewed- pt finished antibiotics approx one week ago No changes in health, diet, medications, or supplements, Denies any signs and symptoms of bleeding or bruising or clotting. Bleeding, bruising, clotting discussed Nutritional guidance given Dose: 2.5mg x 7 F/U INR: 2 weeks Patient verbalizes understanding of instructions given Anti-Coag Initial Assessment Social Hx Patient Tobacco Use Status: Former Tobacco user Quit Date: 1971 alcohol intake: unknown Alcohol intake frequency: holidays/special occasions only Cardiovascular Hx: HTN, Arrhythmias and Other Musculoskeletal Hx: Arthritis Blood Disorder Hx: Hyperlipidemia GI Hx: Bleeding (GI, rectal) and Hemorrhoids Cancer HX: No Psych. Illness/Depression: No Coding Level of Care Code Est Patient Level 1 Diagnoses Current use of anticoagulant therapy Z79.01 Results AMB INR Fingerstick AMB INR Fingerstick 2.1 Last Edit by Adina Abebe RN on 04/21/23 08:27 Assessment & Plan Assessment & Plan (1) Current use of anticoagulant therapy: Code(s): Z79.01 - USP (current) use of anticoagulants Category: Medical Medications: Discontinued sulfamethoxazole-trimethoprim 800-160 mg (Bactrim DS) Discontinued Reason: Patient Completed Course 1 tab PO BID 7 days 14 tabs 0RF
[2023-04-21 08:27] LABS: Prothrombin Time Whole Bld POC 25.7 sec (11.1-13.5); ~PT, ~INR - Anti Coag Clinic 2.1 (0.9-1.1)
== END 2023-04-21 08:33 | disposition home or self-care (01) ==
LOC: HO.ACS 08:05
PROVIDERS: PCP Internal Medicine; Visit Provider Internal Medicine
DX: Z79.01 Long term (current) use of anticoagulants (principal)

== ENCOUNTER → 2023-04-21 08:05 | Outpatient (BNVA) | payer MEDICARE, SELFPAY | PROVIDERS: PCP Internal Medicine; Visit Provider Internal Medicine | DX: I48.0 Paroxysmal atrial fibrillation (principal); Z79.01 Long term (current) use of anticoagulants; Z51.81 Encounter for therapeutic drug level monitoring | CPT/HCPCS: 85610; 99211 ==

== ENCOUNTER 2023-04-27 10:20 | Outpatient (REF) | payer MEDICARE, SELFPAY ==
--- NOTE | ~2023-04-27 | MM_ITS ---
EXAMINATION: MM DIAGNOSTIC DIGITAL BREAST TOMOSYNTHESIS, BILATERAL AND UNILATERAL LEFT BREAST ULTRASOUND CLINICAL INFORMATION: 82-year-old female currently taking oral antibiotics for erythema in the 5-8 o'clock periareolar region of the left breast. The patient reports decreased erythema since beginning the antibiotic therapy. The lifetime risk of breast cancer based on the Tyrer-Cuzick Model is 0.9.%. COMPARISON: Mammography: This study is compared with prior mammograms dating back to 2018. TECHNIQUE: Digital breast tomosynthesis is performed in both the craniocaudal and mediolateral oblique views along with computer-aided detection (CAD). Synthesized 2D images are generated from the tomosynthesis. FINDINGS: Mammogram: There are scattered areas of fibroglandular density (ACR BI-RADS breast composition Category b). There are no significant masses, abnormal calcifications, or other abnormalities in either breast. There are no abnormalities associated with the left periareolar region. Left breast ultrasound: Sonography of the nipple-areolar complex and 5 to 8:00 positions of the periareolar region reveals no discrete abnormality. There is no abscess in this region. MM/MM tomosynthesis diagnostic BI IMPRESSION: No mammographic or sonographic signs of malignancy in either breast. No mammographic or sonographic abnormalities associated with the area of symptomatology in the right periareolar region as described above. No abscess formation. Continued clinical follow-up by the referring physician is advised. Annual screening mammography is advised. Results and recommendations are provided to the patient at time of visit by the technologist. ASSESSMENT: BI-RADS BI-RADS 1 - Negative RECOMMENDATION: 1 year F/U This patient's information was entered into a reminder system with a target due date for their next mammogram.
== END 2023-04-27 10:21 | disposition home or self-care (01) ==
LOC: HO.MAMMO 10:20
PROVIDERS: PCP Internal Medicine; Visit Provider Internal Medicine
DX: N61.0 Mastitis without abscess (principal); L53.8 Other specified erythematous conditions
CPT/HCPCS: 76642; 77062; 77066

== ENCOUNTER → 2023-04-27 10:30 | Outpatient (BNV) | payer MEDICARE, SELFPAY | PROVIDERS: PCP Internal Medicine; Visit Provider Radiology Diagnostic Radiology | DX: L53.9 Erythematous condition, unspecified (principal); Z12.31 Encounter for screening mammogram for malignant neoplasm of breast | CPT/HCPCS: 76642; 77066 ==

== ENCOUNTER 2023-05-12 08:04 | Outpatient (AMB) | payer MEDICARE, SELFPAY ==
[2023-05-12 08:09] LABS: ~PT, ~INR - Anti Coag Clinic 2.3 (0.9-1.1)
--- NOTE | 2023-05-12 08:14 | MHC.OFFVISCO ---
Intake Intake Visit Reasons: Anticoagulation Allergies codeine [CODEINE] Allergy (Intermediate, Verified 05/12/23 08:06) HEADACHES hydrochlorothiazide [HYDROCHLOROTHIAZIDE] Allergy (Intermediate, Verified 05/12/23 08:06) NAUSEA & VOMITING, low K latex [LATEX] Allergy (Intermediate, Verified 05/12/23 08:06) RASH lisinopril [LISINOPRIL] Adverse Reaction (Mild, Verified 05/12/23 08:06) COUGH Medication List - Last Reconciled 05/12/23 by Em Barboza RN amlodipine 10 mg PO DAILY atorvastatin 40 mg PO DAILY cholecalciferol (vitamin D3) 25 mcg PO DAILY dronedarone (Multaq) 400 mg PO BID furosemide 20 mg PO DAILY losartan 50 mg PO DAILY metoprolol tartrate 25 mg (1/2 x 50 mg) PO BID nystatin (Nystop) 1 appl topical BID PRN simethicone (Gas Relief (simethicone)) 250 mg PO BID PRN triamcinolone acetonide 0.1% 1 appl topical BID warfarin 5 mg See Protocol PO DAILY Nursing Note INR: 2.3 in therapeutic range Medications and supplements reviewed No changes in health, diet, medications, or supplements, Denies any signs and symptoms of bleeding or bruising or clotting. Bleeding, bruising, clotting discussed Nutritional guidance given Dose: 2.5MG DAILY F/U INR: 1 MONTH Patient verbalizes understanding of instructions given Anti-Coag Initial Assessment Social Hx Patient Tobacco Use Status: Former Tobacco user Quit Date: 1971 alcohol intake: unknown Alcohol intake frequency: holidays/special occasions only Cardiovascular Hx: HTN, Arrhythmias and Other Musculoskeletal Hx: Arthritis Blood Disorder Hx: Hyperlipidemia GI Hx: Bleeding (GI, rectal) and Hemorrhoids Cancer HX: No Psych. Illness/Depression: No Coding Level of Care Code Est Patient Level 1 Diagnoses Current use of anticoagulant therapy Z79.01 Assessment & Plan Assessment & Plan (1) Current use of anticoagulant therapy: Code(s): Z79.01 - longterm (current) use of anticoagulants Category: Medical
== END 2023-05-12 08:17 | disposition home or self-care (01) ==
PROVIDERS: PCP Internal Medicine; Visit Provider Internal Medicine
DX: Z79.01 Long term (current) use of anticoagulants (principal)

== ENCOUNTER → 2023-05-12 08:04 | Outpatient (BNVA) | payer MEDICARE, SELFPAY | PROVIDERS: PCP Internal Medicine; Visit Provider Internal Medicine | DX: I48.0 Paroxysmal atrial fibrillation (principal); Z79.01 Long term (current) use of anticoagulants; Z51.81 Encounter for therapeutic drug level monitoring | CPT/HCPCS: 85610; 99211 ==

== ENCOUNTER 2023-05-20 10:00 | Outpatient (AMB) | payer MEDICARE, SELFPAY ==
--- NOTE | 2023-05-20 10:41 | AM.OFFVISNUR ---
Intake Intake Visit Reasons: EKG Allergies codeine [CODEINE] Allergy (Intermediate, Verified 05/20/23 10:41) HEADACHES hydrochlorothiazide [HYDROCHLOROTHIAZIDE] Allergy (Intermediate, Verified 05/20/23 10:41) NAUSEA & VOMITING, low K latex [LATEX] Allergy (Intermediate, Verified 05/20/23 10:41) RASH lisinopril [LISINOPRIL] Adverse Reaction (Mild, Verified 05/20/23 10:41) COUGH Nursing Note 3 month EKG patient on Multaq 400 MG BID. EKG shows heart rate of 58 bpm. Patient feels good today, no complaints. EKG handed to Dr. Angelo for review. Office Procedures EKG [id number], Complete Coding Diagnoses CPT Codes EKG - CPT: 24191-[id number], Complete ([id number])
== END 2023-05-20 12:36 | disposition home or self-care (01) ==
PROVIDERS: PCP Internal Medicine; Referring Provider Internal Medicine; Visit Provider Internal Medicine Cardiovascular Disease
DX: R00.1 Bradycardia, unspecified (principal)
CPT/HCPCS: 93010

== ENCOUNTER → 2023-05-20 10:00 | Outpatient (BNVA) | payer MEDICARE, SELFPAY | PROVIDERS: PCP Internal Medicine; Referring Provider Internal Medicine; Visit Provider Internal Medicine Cardiovascular Disease | DX: Z79.899 Other long term (current) drug therapy (principal) | CPT/HCPCS: 93005 ==

== ENCOUNTER 2023-06-09 08:02 | Outpatient (AMB) | payer MEDICARE, SELFPAY ==
--- NOTE | 2023-06-09 08:08 | MHC.OFFVISCO ---
Intake Intake Visit Reasons: Anticoagulation Allergies codeine [CODEINE] Allergy (Intermediate, Verified 06/09/23 08:04) HEADACHES hydrochlorothiazide [HYDROCHLOROTHIAZIDE] Allergy (Intermediate, Verified 06/09/23 08:04) NAUSEA & VOMITING, low K latex [LATEX] Allergy (Intermediate, Verified 06/09/23 08:04) RASH lisinopril [LISINOPRIL] Adverse Reaction (Mild, Verified 06/09/23 08:04) COUGH Medication List - Last Reconciled 06/09/23 by Adina Abebe RN amlodipine 10 mg PO DAILY atorvastatin 40 mg PO DAILY cholecalciferol (vitamin D3) 25 mcg PO DAILY dronedarone (Multaq) 400 mg PO BID furosemide 20 mg PO DAILY losartan 50 mg PO DAILY metoprolol tartrate 25 mg (1/2 x 50 mg) PO BID nystatin (Nystop) 1 appl topical BID PRN simethicone (Gas Relief (simethicone)) 250 mg PO BID PRN triamcinolone acetonide 0.1% 1 appl topical BID warfarin 5 mg See Protocol PO DAILY Nursing Note INR: 2.5- in therapeutic range Medications and supplements reviewed- no changes No changes in health, diet, medications, or supplements, Denies any signs and symptoms of bleeding or bruising or clotting. Bleeding, bruising, clotting discussed Nutritional guidance given Dose: 2.5mg x 7 F/U INR: 4 weeks Patient verbalizes understanding of instructions given Anti-Coag Initial Assessment Social Hx Patient Tobacco Use Status: Former Tobacco user Quit Date: 1971 alcohol intake: unknown Alcohol intake frequency: holidays/special occasions only Cardiovascular Hx: HTN, Arrhythmias and Other Musculoskeletal Hx: Arthritis Blood Disorder Hx: Hyperlipidemia GI Hx: Bleeding (GI, rectal) and Hemorrhoids Cancer HX: No Psych. 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
[2023-06-09 08:09] LABS: Prothrombin Time Whole Bld POC 29.9 sec (11.1-13.5); ~PT, ~INR - Anti Coag Clinic 2.5 (0.9-1.1)
== END 2023-06-09 08:12 | disposition home or self-care (01) ==
LOC: HO.ACS 08:02
PROVIDERS: PCP Internal Medicine; Visit Provider Internal Medicine
DX: Z79.01 Long term (current) use of anticoagulants (principal)

== ENCOUNTER → 2023-06-09 08:02 | Outpatient (BNVA) | payer MEDICARE, SELFPAY | PROVIDERS: PCP Internal Medicine; Visit Provider Internal Medicine | DX: I48.0 Paroxysmal atrial fibrillation (principal); Z79.01 Long term (current) use of anticoagulants; Z51.81 Encounter for therapeutic drug level monitoring | CPT/HCPCS: 85610; 99211 ==

== ENCOUNTER 2023-07-07 08:01 | Outpatient (AMB) | payer MEDICARE, SELFPAY ==
--- NOTE | 2023-07-07 08:14 | MHC.OFFVISCO ---
Intake Intake Visit Reasons: Anticoagulation Allergies codeine [CODEINE] Allergy (Intermediate, Verified 07/07/23 08:05) HEADACHES hydrochlorothiazide [HYDROCHLOROTHIAZIDE] Allergy (Intermediate, Verified 07/07/23 08:05) NAUSEA & VOMITING, low K latex [LATEX] Allergy (Intermediate, Verified 07/07/23 08:05) RASH lisinopril [LISINOPRIL] Adverse Reaction (Mild, Verified 07/07/23 08:05) COUGH Medication List - Last Reconciled 07/07/23 by Flavia Brasher RN amlodipine 10 mg PO DAILY atorvastatin 40 mg PO DAILY cholecalciferol (vitamin D3) 25 mcg PO DAILY dronedarone (Multaq) 400 mg PO BID furosemide 20 mg PO DAILY losartan 50 mg PO DAILY metoprolol tartrate 25 mg (1/2 x 50 mg) PO BID nystatin (Nystop) 1 appl topical BID PRN simethicone (Gas Relief (simethicone)) 250 mg PO BID PRN triamcinolone acetonide 0.1% 1 appl topical BID warfarin 5 mg See Protocol PO DAILY Nursing Note Amb to ACS feeling well Medications and supplements reviewed No changes in health, diet, medications, or supplements Denies any unusual signs and symptoms of bruising, bleeding Denies any new Chest pain, SOB, or clotting INR: 2.6 in therapeutic range Nutritional guidance given: balance greens and reds in diet, be consistent Dose: continue usual dosing;2.5mg daily F/U INR: 4 weeks Patient verbalizes understanding of instructions given with accurate read back/ teach back of dosing Anti-Coag Initial Assessment Social Hx Patient Tobacco Use Status: Former Tobacco user Quit Date: 1971 alcohol intake: unknown Alcohol intake frequency: holidays/special occasions only Cardiovascular Hx: HTN, Arrhythmias and Other Musculoskeletal Hx: Arthritis Blood Disorder Hx: Hyperlipidemia GI Hx: Bleeding (GI, rectal) and Hemorrhoids Cancer HX: No Psych. 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
[2023-07-07 11:39] LABS: Prothrombin Time Whole Bld POC 31.7 sec (11.1-13.5); ~PT, ~INR - Anti Coag Clinic 2.6 (0.9-1.1)
== END 2023-07-07 08:16 | disposition home or self-care (01) ==
LOC: HO.ACS 08:01
PROVIDERS: PCP Internal Medicine; Visit Provider Internal Medicine
DX: Z79.01 Long term (current) use of anticoagulants (principal)

== ENCOUNTER → 2023-07-07 08:01 | Outpatient (BNVA) | payer MEDICARE, SELFPAY | PROVIDERS: PCP Internal Medicine; Visit Provider Internal Medicine | DX: I48.0 Paroxysmal atrial fibrillation (principal); Z51.81 Encounter for therapeutic drug level monitoring; Z79.01 Long term (current) use of anticoagulants | CPT/HCPCS: 85610; 99211 ==

== ENCOUNTER 2023-08-04 07:58 | Outpatient (AMB) | payer MEDICARE, SELFPAY ==
[2023-08-04 08:11] LABS: Prothrombin Time Whole Bld POC 27.7 sec (11.1-13.5); ~PT, ~INR - Anti Coag Clinic 2.3 (0.9-1.1)
--- NOTE | 2023-08-04 08:12 | MHC.OFFVISCO ---
Intake Intake Visit Reasons: Anticoagulation Allergies codeine [CODEINE] Allergy (Intermediate, Verified 08/04/23 08:05) HEADACHES hydrochlorothiazide [HYDROCHLOROTHIAZIDE] Allergy (Intermediate, Verified 08/04/23 08:05) NAUSEA & VOMITING, low K latex [LATEX] Allergy (Intermediate, Verified 08/04/23 08:05) RASH lisinopril [LISINOPRIL] Adverse Reaction (Mild, Verified 08/04/23 08:05) COUGH Medication List - Last Reconciled 08/04/23 by Flavia Brasher RN amlodipine 10 mg PO DAILY atorvastatin 40 mg PO DAILY cholecalciferol (vitamin D3) 25 mcg PO DAILY dronedarone (Multaq) 400 mg PO BID furosemide 20 mg PO DAILY losartan 50 mg PO DAILY metoprolol tartrate 25 mg (1/2 x 50 mg) PO BID nystatin (Nystop) 1 appl topical BID PRN simethicone (Gas Relief (simethicone)) 250 mg PO BID PRN triamcinolone acetonide 0.1% 1 appl topical BID warfarin 5 mg See Protocol PO DAILY Nursing Note Amb to ACS feeling well Medications and supplements reviewed No changes in health, diet, medications, or supplements Denies any unusual signs and symptoms of bruising, bleeding Denies any new Chest pain, SOB, or clotting INR: 2.3 in therapeutic range Nutritional guidance given: balance greens and reds in diet, reviewed Holiday food pitfalls Dose: continue usual dosing; 2.5mg daily F/U INR: 4 weeks Patient verbalizes understanding of instructions given with accurate read back/ teach back of dosing Anti-Coag Initial Assessment Social Hx Patient Tobacco Use Status: Former Tobacco user Quit Date: 1971 alcohol intake: unknown Alcohol intake frequency: holidays/special occasions only Cardiovascular Hx: HTN, Arrhythmias and Other Musculoskeletal Hx: Arthritis Blood Disorder Hx: Hyperlipidemia GI Hx: Bleeding (GI, rectal) and Hemorrhoids Cancer HX: No Psych. 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
== END 2023-08-04 08:16 | disposition home or self-care (01) ==
LOC: HO.ACS 07:58
PROVIDERS: PCP Internal Medicine; Visit Provider Internal Medicine
DX: Z79.01 Long term (current) use of anticoagulants (principal)

== ENCOUNTER → 2023-08-04 07:58 | Outpatient (BNVA) | payer MEDICARE, SELFPAY | PROVIDERS: PCP Internal Medicine; Visit Provider Internal Medicine | DX: I48.0 Paroxysmal atrial fibrillation (principal); Z79.01 Long term (current) use of anticoagulants; Z51.81 Encounter for therapeutic drug level monitoring | CPT/HCPCS: 85610; 99211 ==

== ENCOUNTER 2023-08-17 10:08 | Outpatient (AMB) | payer MEDICARE, SELFPAY ==
--- NOTE | 2023-08-17 10:15 | MHC.OFFVIS ---
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 Information Interpreted: non-clinical & clinical Public Aid Eligibility Assistant: Public Aid Eligibility Assistant Present (Elida Keene JEEVANMatthew) Accompanied by: Self / Same As Patient Allergies codeine [CODEINE] Allergy (Intermediate, Verified 08/17/23 10:24) HEADACHES hydrochlorothiazide [HYDROCHLOROTHIAZIDE] Allergy (Intermediate, Verified 08/17/23 10:24) NAUSEA & VOMITING, low K latex [LATEX] Allergy (Intermediate, Verified 08/17/23 10:24) RASH lisinopril [LISINOPRIL] Adverse Reaction (Mild, Verified 08/17/23 10:24) COUGH Post menopausal: Yes HPI HPI Comments History of Present Illness Details The patient is presenting for pessary check complaint of vaginal discharge and pressure. The pessary did not slip out. [facility] Medical History Osteoporosis Uterine prolapse Rectocele Hyperlipidemia Sinus bradycardia Atrial fibrillation Paroxysmal atrial fibrillation HTN (hypertension) Surgical History History of cholecystectomy Hx of tubal ligation Family History Father CVD (cardiovascular disease) Mother CVD (cardiovascular disease) Diabetes Other Substance use disorder Social History Household Members: Family Housing: House Do you presently have visiting nurse or other home services: No Alcohol intake: unknown Patient Tobacco Use Status: Former Tobacco user Quit Date: 1971 Years Smoked: 12 +/- e-Cigarette/Vaping Use: Never Used service: No Current occupational status: retired 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 Current occupational exposures/hazards: No Cognitive needs: No Hearing needs: No Vision needs: Yes Review of Systems Const All systems reviewed & are unremarkable except as noted in HPI and below Physical Exam Vital Signs: Last Vital Signs BP 110/64 08/17/23 10:24 BMI result Body Mass Index 31.2 General: Yes no CVA tenderness External Female Exam: normal external appearance and normal appearance of the urethra Speculum Exam - Vagina: normal palpation, no lesions, no masses and other (Posterior vaginal abrasion 1 cm with no evidence of infection) Speculum Exam - Cervix: normal appearance of the cervix, normal palpation, no lesions, no masses and nontender Bimanual exam- vagina & uterus: normal bimanual exam, normal palpation, uterine size normal, normal palpation, uterine shape normal, No Cervical tenderness present and non-tender Bimanual Exam- Adnexa, other: normal adnexae Back/Spine/Pelvis Back: no CVA tenderness Assessment & Plan Assessment & Plan (1) Vaginal abrasion: Comment: Secondary to pessary Code(s): S30.814A - Abrasion of vagina and vulva, initial encounter Plan: Pessary was taken out; pelvic exam revealed posterior vaginal wall abrasion is no evidence of infection. The pessary was kept out. Pt was instructed to call if vaginal pressure, pain or discharge occurs otherwise. Follow-up in 6 weeks were reinspected vaginal abrasion if within normal and completely healed will reinsert the pessary. All questions answered, the patient verbalized understanding Coding Level of Care Code Est Pt Level 3 (06875) Diagnoses Vaginal abrasion S30.814A
[2023-08-17 10:24] VITALS: BP 110/64; BMI 31.2
== END 2023-08-17 10:36 | disposition home or self-care (01) ==
LOC: HO.HWS 10:08
PROVIDERS: PCP Internal Medicine; Visit Provider Obstetrics & Gynecology
DX: S30.814A Abrasion of vagina and vulva, initial encounter (principal)
CPT/HCPCS: 99213

== ENCOUNTER → 2023-08-17 10:08 | Outpatient (BNVA) | payer MEDICARE, SELFPAY | PROVIDERS: PCP Internal Medicine; Visit Provider Obstetrics & Gynecology | DX: S30.814A Abrasion of vagina and vulva, initial encounter (principal) | CPT/HCPCS: 99212 ==

== ENCOUNTER → 2023-08-19 09:46 | Outpatient (BNVA) | payer MEDICARE, SELFPAY | PROVIDERS: Visit Provider Internal Medicine Cardiovascular Disease ==

== ENCOUNTER 2023-08-31 13:09 | Outpatient (AMB) | payer MEDICARE, SELFPAY ==
--- NOTE | 2023-08-31 13:15 | MHC.OFFVISCO ---
Intake Intake Visit Reasons: Anticoagulation Allergies codeine [CODEINE] Allergy (Intermediate, Verified 08/31/23 13:09) HEADACHES hydrochlorothiazide [HYDROCHLOROTHIAZIDE] Allergy (Intermediate, Verified 08/31/23 13:09) NAUSEA & VOMITING, low K latex [LATEX] Allergy (Intermediate, Verified 08/31/23 13:09) RASH lisinopril [LISINOPRIL] Adverse Reaction (Mild, Verified 08/31/23 13:09) COUGH Medication List - Last Reconciled 08/31/23 by Em Barboza RN amlodipine 10 mg PO DAILY atorvastatin 40 mg PO DAILY cholecalciferol (vitamin D3) 25 mcg PO DAILY dronedarone (Multaq) 400 mg PO BID furosemide 20 mg PO DAILY losartan 50 mg PO DAILY metoprolol tartrate 25 mg (1/2 x 50 mg) PO BID nystatin (Nystop) 1 appl topical BID PRN simethicone (Gas Relief (simethicone)) 250 mg PO BID PRN triamcinolone acetonide 0.1% 1 appl topical BID warfarin 5 mg See Protocol PO DAILY Nursing Note INR: 2.7 in therapeutic range Medications and supplements reviewed No changes in health, diet, medications, or supplements, Denies any signs and symptoms of bleeding or bruising or clotting. Bleeding, bruising, clotting discussed Nutritional guidance given Dose: 2.5MG DAILY F/U INR: 4 WEEKS Patient verbalizes understanding of instructions given Anti-Coag Initial Assessment Social Hx Patient Tobacco Use Status: Former Tobacco user Quit Date: 1971 alcohol intake: unknown Alcohol intake frequency: holidays/special occasions only Cardiovascular Hx: HTN, Arrhythmias and Other Musculoskeletal Hx: Arthritis Blood Disorder Hx: Hyperlipidemia GI Hx: Bleeding (GI, rectal) and Hemorrhoids Cancer HX: No Psych. Illness/Depression: No Coding Level of Care Code Est Patient Level 1 Results AMB INR Fingerstick AMB INR Fingerstick 2.7 Last Edit by Em Barboza RN on 08/31/23 13:16 MANUAL ENTRY INTERFACING FAILURE ONGOING
[2023-09-01 08:13] LABS: Prothrombin Time Whole Bld POC 31.8 sec (11.1-13.5); ~PT, ~INR - Anti Coag Clinic 2.7 (0.9-1.1)
== END 2023-08-31 13:20 | disposition home or self-care (01) ==
LOC: HO.ACS 13:09
PROVIDERS: PCP Internal Medicine; Visit Provider Internal Medicine
DX: Z79.01 Long term (current) use of anticoagulants (principal)

== ENCOUNTER → 2023-08-31 13:09 | Outpatient (BNVA) | payer MEDICARE, SELFPAY | PROVIDERS: PCP Internal Medicine; Visit Provider Internal Medicine | DX: I48.0 Paroxysmal atrial fibrillation (principal); I10 Essential (primary) hypertension; R06.02 Shortness of breath; Z79.01 Long term (current) use of anticoagulants; Z51.81 Encounter for therapeutic drug level monitoring | CPT/HCPCS: 85610; 99211; 99212 ==

== ENCOUNTER 2023-08-31 13:25 | Outpatient (AMB) | payer MEDICARE, SELFPAY ==
[2023-08-31 13:28] VITALS: BP 122/68; PULSE 70; BMI 31.7
--- NOTE | 2023-08-31 13:28 | A.OFFVIS_ITS ---
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 Allergies codeine [CODEINE] Allergy (Intermediate, Verified 08/31/23 13:09) HEADACHES hydrochlorothiazide [HYDROCHLOROTHIAZIDE] Allergy (Intermediate, Verified 08/31/23 13:09) NAUSEA & VOMITING, low K latex [LATEX] Allergy (Intermediate, Verified 08/31/23 13:09) RASH lisinopril [LISINOPRIL] Adverse Reaction (Mild, Verified 08/31/23 13:09) COUGH Medication List - Last Reconciled 08/31/23 by Carson Angelo MD amlodipine 10 mg PO DAILY atorvastatin 40 mg PO DAILY cholecalciferol (vitamin D3) 25 mcg PO DAILY dronedarone (Multaq) 400 mg PO BID furosemide 20 mg PO DAILY losartan 50 mg PO DAILY metoprolol tartrate 25 mg (1/2 x 50 mg) PO BID nystatin (Nystop) 1 appl topical BID PRN simethicone (Gas Relief (simethicone)) 250 mg PO BID PRN triamcinolone acetonide 0.1% 1 appl topical BID warfarin 5 mg See Protocol PO DAILY HPI HPI Comments History of Present Illness Details March comes for follow-up. She says intermittently she gets exertional shortness of breath especially when she is stressed and occasionally with exertion. She does exercise on regular basis. No prolonged episode of atrial fibrillation. No prolonged irregular heartbeat. Occasionally feels pounding in her chest at nighttime but her pulse is usually regular when she measures it. A blood pressure goes up to 145 in that range. Says the highest a blood pressures been is systolic 160. She denies any exertional chest pain. No orthopnea, PND, leg edema. No bleeding issues or neurologic events. [facility] Medical History Osteoporosis Uterine prolapse Rectocele Hyperlipidemia Sinus bradycardia Atrial fibrillation Paroxysmal atrial fibrillation HTN (hypertension) Surgical History History of cholecystectomy Hx of tubal ligation Family History Father CVD (cardiovascular disease) Mother CVD (cardiovascular disease) Diabetes Other Substance use disorder Household Members: Family Housing: House Do you presently have visiting nurse or other home services: No Alcohol intake: unknown Patient Tobacco Use Status: Former Tobacco user Quit Date: 1971 Years Smoked: 12 +/- e-Cigarette/Vaping Use: Never Used service: No Current occupational status: retired 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 Current occupational exposures/hazards: No Cognitive needs: No Hearing needs: No Vision needs: Yes Review of Systems Const Denies chills, Denies fatigue, Denies fever(s), Denies frequent falls, Denies weakness, Denies weight gain and Denies weight loss ENT Denies dizziness Card Denies chest pain, Denies leg edema, Denies lightheadedness, Denies palpitations, Denies dyspnea, Denies dyspnea on exertion, Denies orthopnea and Denies other (loss of consciousness) Resp Denies cough, Denies dyspnea and Denies dyspnea on exertion GI Denies hematochezia and Denies change in stool character Musc Denies abnormal gait, Denies muscle weakness, Denies numbness, Denies radiating pain into limb and Denies tingling Neuro Denies abnormal gait, Denies dizziness, Denies frequent falls, Denies numbness, Denies tingling and Denies weakness Endo Denies fatigue and Denies palpitations Physical Exam Vital Signs: Last Vital Signs Pulse 70 08/31/23 13:28 BP 122/68 08/31/23 13:28 BMI result Body Mass Index 31.7 Const General: cooperative, comfortable, no acute distress, alert and awake Nutritional Appearance: overweight Orientation/consciousness: patient oriented x3 Limitations: no limitations Neck Neck: Yes trachea midline, Yes supple and Yes JVD (Mild abdominal jugular reflux) Resp Effort & Inspection: normal respiratory effort Auscultation: clear to auscultation bilaterally Cardio Jugular venous distension: no JVD Palpation: normal PMI Rate: regular rate Rhythm: regular rhythm Heart sounds: S1 normal heart sound present, S2 normal heart sound present and Other heart sounds present (S4 present) GI Auscultation: normal bowel sounds Skin General skin exam: no rashes or lesions noted Neuro General: patient oriented x3 and no focal motor deficits Extrem General: No clubbing, No cyanosis and Yes edema (2+ bilateral below knee) Psych Appearance: grossly normal Affect: Anxious affect present Results AMB INR Fingerstick AMB INR Fingerstick 2.7 Last Edit by Em Barboza RN on 08/31/23 13:16 MANUAL ENTRY INTERFACING FAILURE ONGOING Assessment & Plan Assessment & Plan (1) SOB (shortness of breath) on exertion: Code(s): R06.02 - Shortness of breath Plan: Patient with worsening symptoms exertional shortness of breath. Multiple risk factors for coronary disease including advanced age as well as high pulse pressure is suggestive of diffuse atherosclerotic disease. Advised to pursue exercise myocardial perfusion imaging to rule out myocardial ischemia and obstructive coronary artery disease as a cause of her symptoms. Otherwise most likely related diastolic dysfunction left atrial enlargement despite maintenance of rhythm. No signs or symptoms of heart failure at this point in time. (2) Paroxysmal atrial fibrillation: Code(s): I48.0 - Paroxysmal atrial fibrillation Plan: Paroxysmal atrial fibrillation which has been difficult control. She is currently on Multaq therapy along with associated metoprolol and as needed increase metoprolol dose. She has done well with rhythm control approach will continue pursue rhythm control approach. Importance continue Multaq therapy was discussed currently on warfarin therapy being followed by [facility]. Maintain target INR between 2 and 3. She wants to think about switching to direct oral anticoagulant therapy. Avoidance of stimulants was discussed. Advised to continue monitor clinically and advised to call me if there is recurrent episodes of atrial fibrillation. (3) HTN (hypertension): Code(s): I10 - Essential (primary) hypertension Plan: Hypertension which has been difficult to control and is labile. Currently blood pressure is adequately controlled on current therapy. Importance of good blood pressure control was discussed. She understands agrees. Nature of increased pulse pressure was discussed as well. Advised to maintain adequate hydration advised to avoid salt loading. Follow up in the clinic in 3 months time on a usual follow-up. Thank you for allowing me to partake in the care Orders: Orders CA stress test Today R06.02 - Shortness of breath NM cardiolite stress test 2 Weeks R06.02 - Shortness of breath, R07.9 - Chest pain, unspecified CA echo transthoracic complete 3 Months I48.0 - Paroxysmal atrial fibrillation Coding Level of Care Code Est Pt Level 4 (83020) Diagnoses SOB (shortness of breath) on exertion R06.02 Paroxysmal atrial fibrillation I48.0 HTN (hypertension) I10
== END 2023-08-31 13:55 | disposition home or self-care (01) ==
PROVIDERS: PCP Internal Medicine; Visit Provider Internal Medicine Cardiovascular Disease
DX: R06.02 Shortness of breath (principal); I48.0 Paroxysmal atrial fibrillation; I10 Essential (primary) hypertension
CPT/HCPCS: 99214

== ENCOUNTER 2023-09-01 06:13 | Outpatient (REF) | payer MEDICARE, SELFPAY ==
[2023-09-01 11:17] LABS: MANUAL DIFF FLAG NO
[2023-09-01 11:23] LABS: Basophils Percent Auto 0.5 % (0-2); Eosinophils Absolute Auto 0.2 X10*3/uL (0.0-0.4); Eosinophils Percent Auto 2.6 % (0-4); Hematocrit 40.4 % (37.0-47.0); Hemoglobin 13.5 g/dl (12.0-16.0); Imm Gran Abs Auto 0.01 X10*3/uL (0.00-0.03); Imm Gran Pct Auto 0.2 % (0.0-0.4); Lymphocytes Absolute Auto 2.9 X10*3/uL (1.2-4.9); Mean Corpuscular HGB Conc 33.4 g/dl (31.0-35.0); Mean Corpuscular Hemoglobin 30.1 pg (27.0-33.0); Mean Corpuscular Volume 90.2 fL (80.0-98.0); Mean Platelet Volume 10.9 fL (9.4-12.3); Monocytes Absolute Auto 0.5 X10*3/uL (0.1-1.2); Monocytes Percent Auto 9.2 % (2-11); Neutrophils Absolute Auto 2.3 x10*3/uL (2.0-8.3); Neutrophils Percent Auto 38.5 % (45-73); Platelet Count 203 X10*3/uL (160-400); Red Blood Count 4.48 X10*6/uL (4.20-5.50); Red Cell Distribution Width 13.3 % (11.0-16.0); White Blood Count 5.9 X10*3/uL (4.8-10.8)
[2023-09-01 12:10] LABS: Alanine Aminotransferase 16 U/L (0-31); Albumin Level 3.8 g/dL (3.5-5.0); Alkaline Phosphatase 87 U/L (39-117); Anion Gap 9 (12-20); Aspartate Amino Transferase 18 U/L (5-31); Bilirubin Total 0.7 mg/dL (0.0-1.0); Blood Urea Nitrogen 22 mg/dL (9-16); Calcium 9.1 mg/dL (8.4-10.2); Carbon Dioxide 27 mmol/L (22-29); Chloride 109 mmol/L (96-108); Cholesterol 160 mg/dL (<200); Estimated Glomerular Filt Rate > 60; Glucose Fasting 108 mg/dL (60-99); HDL Cholesterol 45 mg/dL (>40); LDL Cholesterol Calculated 95 mg/dL (<100); Potassium 3.7 mmol/L (3.3-5.1); Sodium 141 mmol/L (135-145); Total Protein 6.5 g/dL (6.5-8.0); Triglycerides 103 mg/dL (<150)
== END 2023-09-01 06:14 | disposition home or self-care (01) ==
LOC: HO.HMGCLDS 06:13
PROVIDERS: PCP Internal Medicine; Visit Provider Internal Medicine
DX: I10 Essential (primary) hypertension (principal); I48.0 Paroxysmal atrial fibrillation; E78.5 Hyperlipidemia, unspecified
CPT/HCPCS: 36415; 80053; 80061; 85025

== ENCOUNTER 2023-09-17 08:23 | Outpatient (AMB) | payer MEDICARE, SELFPAY ==
--- NOTE | 2023-09-17 08:52 | MHC.PC.OV ---
Vital Signs 09/17/23 08:53 Height 5 ft 1 in Weight 165 lb BMI 31.2 BP 128/68 Blood Pressure Location Lt brachial Position Sitting Pulse 62 Pulse Source Pulse Oximeter Pulse Oximetry (%) 97 Oxygen Delivery Method Room Air Intake Visit Reasons: Annual PE Intake Note: Pt is here today for PE. Allergies codeine [CODEINE] Allergy (Intermediate, Verified 09/17/23 08:54) HEADACHES hydrochlorothiazide [HYDROCHLOROTHIAZIDE] Allergy (Intermediate, Verified 09/17/23 08:54) NAUSEA & VOMITING, low K latex [LATEX] Allergy (Intermediate, Verified 09/17/23 08:54) RASH lisinopril [LISINOPRIL] Adverse Reaction (Mild, Verified 09/17/23 08:54) COUGH Medication List - Last Reconciled 09/17/23 by Silvia Reynoso MD amlodipine 10 mg PO DAILY atorvastatin 40 mg PO DAILY cholecalciferol (vitamin D3) 25 mcg PO DAILY dronedarone (Multaq) 400 mg PO BID furosemide 20 mg PO DAILY losartan 50 mg PO DAILY metoprolol tartrate 25 mg (1/2 x 50 mg) PO BID nystatin (Nystop) 1 appl topical BID PRN simethicone (Gas Relief (simethicone)) 250 mg PO BID PRN triamcinolone acetonide 0.1% 1 appl topical BID warfarin 5 mg See Protocol PO DAILY Tobacco use date assessed: 09/17/23 Dental Screening Dental Screen Date: 09/17/23 Did you have a dental visit in the last 12 months?: No Did you have a dental problem in the last 6 months where you did not have access to dental care?: No Was dental information given to patient?: Patient declined HPI Annual PE HPI Details Patient presents for physical. She complains of anxiety on and off worrying about her adult children but denies depression suicidal ideation insomnia change in appetite PFSH Medical History Osteoporosis Uterine prolapse Rectocele Hyperlipidemia Sinus bradycardia Atrial fibrillation Paroxysmal atrial fibrillation HTN (hypertension) Surgical History History of cholecystectomy Hx of tubal ligation Family History Father CVD (cardiovascular disease) Mother CVD (cardiovascular disease) Diabetes Other Substance use disorder Social History Household Members: Family Housing: House Do you presently have visiting nurse or other home services: No Alcohol intake: unknown Patient Tobacco Use Status: Former Tobacco user Quit Date: 1971 Years Smoked: 12 +/- e-Cigarette/Vaping Use: Never Used service: No Current occupational status: retired 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 Lior Francois, Dee Arango, Jhoan Coronel and colleagues, with an educational simone from [employer] Review of Systems Const All systems reviewed & are unremarkable except as noted in HPI and below Reports no additional complaints Eyes Reports no additional complaints ENT Reports no additional complaints Card Reports no additional complaints Resp Reports no additional complaints GI Reports no additional complaints Physical exam (Primary Care) Vital Signs: Last Vital Signs Pulse 62 09/17/23 08:53 BP 128/68 09/17/23 08:53 Pulse Ox 97 09/17/23 08:53 Oxygen Delivery Method Room Air 09/17/23 08:53 BMI result Body Mass Index 31.2 Tobacco/Smoking Status: Tobacco use Status Tobacco use date assessed 09/17/23 09/17/23 08:56 Patient Tobacco Use Status Former Tobacco user 09/17/23 08:56 Tobacco use type 11/27/22 09:43 e-Cigarette/Vaping Use Never Used 09/17/23 08:56 Thrive Assessment: Date of Thrive Assessment Date Thrive assessed 11/25/22 09/17/23 08:56 Const General: no acute distress HENHI General nose exam: Normal external nose present Eyes General: appearance normal, both eyes and all related structures Neck Neck: Yes supple Resp Effort & Inspection: normal respiratory effort Auscultation: clear to auscultation bilaterally Cardio Rhythm: regular rhythm Heart sounds: S1 normal heart sound present and S2 normal heart sound present GI Inspection: Yes normal to inspection Palpation (GI): Soft to palpation Percussion: Yes normal to percussion Auscultation: normal bowel sounds Extrem General: Yes no clubbing, cyanosis or edema Assessment and Plan Assessment & Plan (1) Paroxysmal atrial fibrillation: Comment: Rhythm controlled on amiodarone, anticoagulated on warfarin follows up with Cardiology Code(s): I48.0 - Paroxysmal atrial fibrillation Plan: Patient will have a exercise stress test because of chronic dyspnea on exertion and intermittent palpitations (2) HTN (hypertension): Code(s): I10 - Essential (primary) hypertension Plan: Continue current medications (3) Hyperlipidemia: Code(s): E78.5 - Hyperlipidemia, unspecified Plan: Continue statin (4) Annual physical exam: Code(s): Z00.00 - Encounter for general adult medical examination without abnormal findings Plan: Well-balanced diet and regular physical activity, stress management discussed with the patient, follow-up in 6 months with a fasting labs before Orders: Orders Comprehensive [place]. Panel Fast Today E78.5 - Hyperlipidemia, unspecified, I10 - Essential (primary) hypertension, I48.0 - Paroxysmal atrial fibrillation TSH reflex Free T4 Today E78.5 - Hyperlipidemia, unspecified, I10 - Essential (primary) hypertension, I48.0 - Paroxysmal atrial fibrillation Complete Blood Count Auto Diff Today E78.5 - Hyperlipidemia, unspecified, I10 - Essential (primary) hypertension, I48.0 - Paroxysmal atrial fibrillation Lipid Panel 6 Months E78.5 - Hyperlipidemia, unspecified, I10 - Essential (primary) hypertension, I48.0 - Paroxysmal atrial fibrillation Complete Blood Count Auto Diff 6 Months E78.5 - Hyperlipidemia, unspecified, I10 - Essential (primary) hypertension, I48.0 - Paroxysmal atrial fibrillation TSH reflex Free T4 6 Months E78.5 - Hyperlipidemia, unspecified, I10 - Essential (primary) hypertension, I48.0 - Paroxysmal atrial fibrillation Comprehensive [place]. Panel Fast 6 Months E78.5 - Hyperlipidemia, unspecified, I10 - Essential (primary) hypertension, I48.0 - Paroxysmal atrial fibrillation Coding Level of Care Code Est Pt Prev Care >65y(26403) Diagnoses Paroxysmal atrial fibrillation I48.0 HTN (hypertension) I10 Hyperlipidemia E78.5 Annual physical exam Z00.00
[2023-09-17 08:53] VITALS: BP 128/68; PULSE 62; O2SAT 97; BMI 31.2
== END 2023-09-17 11:53 | disposition home or self-care (01) ==
PROVIDERS: PCP Internal Medicine; Visit Provider Internal Medicine
DX: I48.0 Paroxysmal atrial fibrillation (principal); I10 Essential (primary) hypertension; E78.5 Hyperlipidemia, unspecified; Z00.00 Encounter for general adult medical examination without abnormal findings
CPT/HCPCS: 99397

== ENCOUNTER → 2023-09-23 08:17 | Outpatient (REF) | payer MEDICARE, SELFPAY ==
--- NOTE | ~2023-09-23 | NM_ITS ---
Lexiscan Myocardial perfusion study Indication: Shortness of breath, assess for coronary disease and ischemia Technique: The patient was brought in for a Lexiscan perfusion study on 09/23/2023 and was injected 0.4 mg of Lexiscan intravenously. Within a minute of this injection 25 mCi of sestamibi was given intravenously. Images were obtained using the SPECT gamma camera interlaced with the gating device. Images were obtained in supine position. Resting perfusion study was performed on 09/30/2023. Patient was administered 25 mCi of sestamibi intravenously at rest. Images were then obtained in supine position. Images were processed with the software and compared side to side in short axis, horizontal long axis and vertical long axis views. Total DLP 159mGy-cm. Findings: Raw acquisition reviewed. Arms by the patient's side. The stress perfusion study showed mildly reduced tracer uptake in the distal part of inferior wall. There is possibly some improvement with CT attenuation correction. The gated study shows normal LV systolic function with calculated LVEF of 60%. LV cavity is normal in size. The gated study shows normal wall thickening and contraction of segments. Resting study shows mildly reduced tracer uptake towards the distal inferior wall and adjacent apex. No major change with CT attenuation correction. Gating at rest reveals normal wall motion with ejection fraction at 55%. The findings are consistent with mild fixed distal inferior defect, probably from diaphragmatic attenuation artifact. NM/NM cardiolite stress test Impression: 1. Myocardial perfusion imaging study shows probably normal myocardial perfusion. No definitive evidence of any ischemia or infarction. 2. Gated LVEF is 60% during stress and 55% during rest. 3. Transient ischemic dilatation not present. EKG component of the test reported separately.
--- NOTE | 2023-09-23 08:22 | CA_ITS ---
Acquisition Time: 2023-09-23 08:35:54 Total Exercise Time: 00:02:00 Test Indications: Dyspnea Medications: AMLODIPINE ATORVASTATIN MULTAQ FUROSEMIDE LOSARTAN METOPROLOL WARFARIN Protocol: LEXISCAN Max HR: 141 BPM 102% of Pred: 137 BPM Max BP: 160/068 mmHG Max Work Load: 1.0 METS Pharmacolgoical stress test with Lexiscan injection while sitting still, without anginal symptoms, without arrhythmias, with normotensive resposne to injection, with nondiagnostic EKGs. Aminophylline 75mg IVp given to reverse Lexiscan. Nuclear images pending. Test reviewed with Dr. Angelo. Referred By: Carson Angelo Overread By: Tamar Wheeler
== END ==
LOC: HO.CARD 08:17
PROVIDERS: PCP Internal Medicine; Visit Provider Internal Medicine Cardiovascular Disease
DX: R07.9 Chest pain, unspecified (principal); R06.02 Shortness of breath
CPT/HCPCS: 78452; 93017; A9500; J0280; J2785

== ENCOUNTER → 2023-09-23 08:22 | Outpatient (BNV) | payer MEDICARE, SELFPAY | PROVIDERS: PCP Internal Medicine; Visit Provider Nurse Practitioner | DX: R06.02 Shortness of breath (principal); R07.9 Chest pain, unspecified | CPT/HCPCS: 78452; 93016; 93018 ==

== ENCOUNTER 2023-10-01 07:54 | Outpatient (AMB) | payer MEDICARE, SELFPAY ==
[2023-10-01 08:09] LABS: Prothrombin Time Whole Bld POC 31.3 sec (11.1-13.5); ~PT, ~INR - Anti Coag Clinic 2.6 (0.9-1.1)
--- NOTE | 2023-10-01 08:13 | MHC.OFFVISCO ---
Intake Intake Visit Reasons: Anticoagulation Allergies codeine [CODEINE] Allergy (Intermediate, Verified 10/01/23 08:04) HEADACHES hydrochlorothiazide [HYDROCHLOROTHIAZIDE] Allergy (Intermediate, Verified 10/01/23 08:04) NAUSEA & VOMITING, low K latex [LATEX] Allergy (Intermediate, Verified 10/01/23 08:04) RASH lisinopril [LISINOPRIL] Adverse Reaction (Mild, Verified 10/01/23 08:04) COUGH Medication List - Last Reconciled 10/01/23 by April Munoz RN amlodipine 10 mg PO DAILY atorvastatin 40 mg PO DAILY cholecalciferol (vitamin D3) 25 mcg PO DAILY dronedarone (Multaq) 400 mg PO BID furosemide 20 mg PO DAILY losartan 50 mg PO DAILY metoprolol tartrate 25 mg (1/2 x 50 mg) PO BID nystatin (Nystop) 1 appl topical BID PRN simethicone (Gas Relief (simethicone)) 250 mg PO BID PRN triamcinolone acetonide 0.1% 1 appl topical BID warfarin 5 mg See Protocol PO DAILY Nursing Note NO CP,SOB,DIET/MED CHANGES,FALLS OR SX OF BLEEDING. CONTINUE 2.5MGM DAILY AND FOLLOW-UP IN 4 WEEKS. GOOD UNDERSTANDING OF DOSING INSTR. Anti-Coag Initial Assessment Social Hx Patient Tobacco Use Status: Former Tobacco user Quit Date: 1971 alcohol intake: unknown Alcohol intake frequency: holidays/special occasions only Cardiovascular Hx: HTN, Arrhythmias and Other Musculoskeletal Hx: Arthritis Blood Disorder Hx: Hyperlipidemia GI Hx: Bleeding (GI, rectal) and Hemorrhoids Cancer HX: No Psych. Illness/Depression: No Coding Level of Care Code Est Patient Level 1 Diagnoses Current use of anticoagulant therapy Z79.01 Assessment & Plan Assessment & Plan (1) Current use of anticoagulant therapy: Code(s): Z79.01 - nursing home (current) use of anticoagulants Category: Medical
== END 2023-10-01 08:17 | disposition home or self-care (01) ==
LOC: HO.ACS 07:54
PROVIDERS: PCP Internal Medicine; Visit Provider Internal Medicine
DX: Z79.01 Long term (current) use of anticoagulants (principal)

== ENCOUNTER → 2023-10-01 07:54 | Outpatient (BNVA) | payer MEDICARE, SELFPAY | PROVIDERS: PCP Internal Medicine; Visit Provider Internal Medicine | DX: I48.0 Paroxysmal atrial fibrillation (principal); Z51.81 Encounter for therapeutic drug level monitoring; Z79.01 Long term (current) use of anticoagulants | CPT/HCPCS: 85610; 99211 ==

== ENCOUNTER 2023-10-09 09:09 | Outpatient (AMB) | payer MEDICARE, SELFPAY ==
[2023-10-09 10:24] VITALS: BP 134/70; PULSE 74; TEMP 36.1; O2SAT 96; BMI 31.0
--- NOTE | 2023-10-09 10:24 | MHC.OFFWIV ---
Intake Vital Signs 10/09/23 10:24 Height 5 ft 1 in Weight 164 lb BMI 31.0 BP 134/70 Blood Pressure Location Lt brachial Position Sitting Pulse 74 Pulse Source Pulse Oximeter Temp 97.0 F Temp Source Temporal Artery Scan Pulse Oximetry (%) 96 Oxygen Delivery Method Room Air Intake Visit Reasons: Ep, cough, sore throat (masked) Intake Note: pt is here today for cough and sore throat started thursday Patient Tobacco Use Status: Former Tobacco user Quit Date: 1971 Allergies codeine [CODEINE] Allergy (Intermediate, Verified 10/09/23 10:28) HEADACHES hydrochlorothiazide [HYDROCHLOROTHIAZIDE] Allergy (Intermediate, Verified 10/09/23 10:28) NAUSEA & VOMITING, low K latex [LATEX] Allergy (Intermediate, Verified 10/09/23 10:28) RASH lisinopril [LISINOPRIL] Adverse Reaction (Mild, Verified 10/09/23 10:28) COUGH Do you need a note to return to daycare/school/sports/work: No HPI HPI Comments History of Present Illness Details Patient is a 83yo F who presents to office with cough She ssid started Thursday + congestion and dry cough + chills, no fever No ST or ear pain Some SOB with activity byt no CP States some ache in ribs with coughing No OTC meds used No improving symptoms Eating/drinking well PFSH Medical History Osteoporosis Uterine prolapse Rectocele Hyperlipidemia Sinus bradycardia Atrial fibrillation Paroxysmal atrial fibrillation HTN (hypertension) Surgical History History of cholecystectomy Hx of tubal ligation Family History Father CVD (cardiovascular disease) Mother CVD (cardiovascular disease) Diabetes Other Substance use disorder Social History Household Members: Family Housing: House Do you presently have visiting nurse or other home services: No Alcohol intake: unknown Patient Tobacco Use Status: Former Tobacco user Quit Date: 1971 Years Smoked: 12 +/- e-Cigarette/Vaping Use: Never Used service: No Current occupational status: retired 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[employer] Current occupational exposures/hazards: No Cognitive needs: No Hearing needs: No Vision needs: Yes Review of Systems Const Denies body aches, Reports chills, Denies fever(s), Denies headache(s) and Denies night sweats Eyes Denies blurry vision ENT Denies ear discharge, Denies headache(s), Reports nasal congestion, Denies sore throat and Denies throat swelling Card Denies chest pain with activity Resp Denies chest congestion, Reports cough, Denies hemoptysis, Denies pain on inspiration, Reports pain with cough (sometimes) and Denies wheezing GI Denies diarrhea Neuro Denies headache(s) Aller/Immun Denies throat swelling and Denies wheezing Physical Exam Vital Signs: Last Vital Signs Temp 97.0 F 10/09/23 10:24 Pulse 74 10/09/23 10:24 BP 134/70 10/09/23 10:24 Pulse Ox 96 10/09/23 10:24 Oxygen Delivery Method Room Air 10/09/23 10:24 BMI result Body Mass Index 31.0 General: Non-toxic, NAD. Speaking full sentences. Skin: Warm dry throughout Eye: EOMI HENT: Airway patent. Uvula midline. No pharyngeal erythema or edema. No CREDIT ADMINISTRATION SPECIALIST. Bilateral canals clear. TM non-erythematous, non-bulging. No TM perforation or hemotympanum noted. Respiratory: Rhonchi bilateral lower lobes. No rales or wheeze Cardiac: RRR. No murmur MSK: Full ROM extremities. Neurology: A/O. No aphasia or facial droop. Gait without abnormality Psych: Good mood and affect Results AMB Rapid Strep AMB Rapid Strep Negative Last Edit by Jazzmine Roblero CMA on 10/09/23 10:41 Results Reviewed Results Reviewed: Laboratory Last Values Strep Scn Rapid Clinic Negative 10/09/23 10:40 Assessment & Plan Assessment & Plan (1) Upper respiratory infection: Code(s): J06.9 - Acute upper respiratory infection, unspecified Qualifiers: URI type: unspecified viral URI Qualified Code(s): J06.9 - Acute upper respiratory infection, unspecified Plan Patient seen and evaluated. strep negative +rhonchi Chest xray: I viewed as negative and final interpretation agreed She is in no respiratory distress and will be given tessalon for cough ER protocol discussed will let her know RSV/flu/COVID results tomorrow/ANETA Patient gave verbal understanding and had no additional questions or concerns at time of discharge All questions answered Orders: Orders AMB Rapid Strep Screen Today Z13.9 - Encounter for screening, unspecified Godwin Pendleton MD XR chest 2V Today J06.9 - Acute upper respiratory infection, unspecified Michelle Smith PA-C SARS-CoV2/FLU/RSV Today J06.9 - Acute upper respiratory infection, unspecified Michelle Smith PA-C Medications: New benzonatate 100 mg PO BID-TID PRN 14 caps 0RF cough J06.9 - Acute upper respiratory infection, unspecified Michelle Smith PA-C Coding Level of Care Code Est Pt Level 3 (60161) Diagnoses Viral upper respiratory tract infection J06.9 URI type: unspecified viral URI
== END 2023-10-09 13:12 | disposition home or self-care (01) ==
PROVIDERS: PCP Internal Medicine; Visit Provider Physician Assistant
DX: J02.9 Acute pharyngitis, unspecified (principal)
CPT/HCPCS: 87880; 99213

== ENCOUNTER 2023-10-09 10:51 | Outpatient (REF) | payer MEDICARE, SELFPAY | END 2023-10-09 10:52 | disposition home or self-care (01) | LOC: HO.HMGCX 10:51 | PROVIDERS: PCP Internal Medicine; Visit Provider Physician Assistant | DX: J06.9 Acute upper respiratory infection, unspecified (principal); Z11.52 Encounter for screening for COVID-19 | CPT/HCPCS: 0241U; 71046 ==

== ENCOUNTER 2023-10-14 12:48 | Outpatient (AMB) | payer MEDICARE, SELFPAY ==
[2023-10-14 13:08] VITALS: BP 120/72; BMI 30.8
--- NOTE | 2023-10-14 13:08 | MHC.OFFVIS ---
Intake Vital Signs 10/14/23 13:08 Height 5 ft 1 in Weight 163 lb 2.273 oz BMI 30.8 BP 120/72 Intake Visit Reasons: pessary placement Allergies codeine [CODEINE] Allergy (Intermediate, Verified 10/09/23 10:28) HEADACHES hydrochlorothiazide [HYDROCHLOROTHIAZIDE] Allergy (Intermediate, Verified 10/09/23 10:28) NAUSEA & VOMITING, low K latex [LATEX] Allergy (Intermediate, Verified 10/09/23 10:28) RASH lisinopril [LISINOPRIL] Adverse Reaction (Mild, Verified 10/09/23 10:28) COUGH HPI HPI Comments History of Present Illness Details Presenting for follow-up vaginal abrasion from her pessary, the patient is doing well with no complaints without the pessary [facility] Medical History Osteoporosis Uterine prolapse Rectocele Hyperlipidemia Sinus bradycardia Atrial fibrillation Paroxysmal atrial fibrillation HTN (hypertension) Surgical History History of cholecystectomy Hx of tubal ligation Family History Father CVD (cardiovascular disease) Mother CVD (cardiovascular disease) Diabetes Other Substance use disorder Social History Household Members: Family Housing: House Do you presently have visiting nurse or other home services: No Alcohol intake: unknown Patient Tobacco Use Status: Former Tobacco user Quit Date: 1971 Years Smoked: 12 +/- e-Cigarette/Vaping Use: Never Used service: No Current occupational status: retired 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 Current occupational exposures/hazards: No Cognitive needs: No Hearing needs: No Vision needs: Yes Review of Systems Const All systems reviewed & are unremarkable except as noted in HPI and below Physical Exam Vital Signs: Last Vital Signs BP 120/72 10/14/23 13:08 BMI result Body Mass Index 30.8 General: Yes no CVA tenderness External Female Exam: normal external appearance and normal appearance of the urethra Speculum Exam - Vagina: normal appearance of the vagina, normal palpation, no lesions, no masses and other (No evidence for perforation, Moderate Rectocele) Speculum Exam - Cervix: normal appearance of the cervix, normal palpation, no lesions, no masses and nontender Bimanual exam- vagina & uterus: normal bimanual exam, normal palpation, uterine size normal, normal palpation, uterine shape normal, No Cervical tenderness present, non-tender and other (Moderate uterine prolapse) Bimanual Exam- Adnexa, other: normal adnexae Back/Spine/Pelvis Back: no CVA tenderness Assessment & Plan Assessment & Plan (1) Uterine prolapse: Comment: With rectocele Code(s): N81.4 - Uterovaginal prolapse, unspecified Plan: Discussed with the patient the options of treatment including expectant management versus pessary insertion, the patient elected to try without the pessary for a while. Instructions given the patient to call in case she change her mind for pessary insertion. All questions answered, the patient verbalized understand Coding Level of Care Code Est Pt Level 3 (47421) Diagnoses Uterine prolapse N81.4
== END 2023-10-14 13:28 | disposition home or self-care (01) ==
LOC: HO.HWS 12:48
PROVIDERS: PCP Internal Medicine; Visit Provider Obstetrics & Gynecology
DX: N81.4 Uterovaginal prolapse, unspecified (principal)
CPT/HCPCS: 99213

== ENCOUNTER → 2023-10-14 12:48 | Outpatient (BNVA) | payer MEDICARE, SELFPAY | PROVIDERS: PCP Internal Medicine; Visit Provider Obstetrics & Gynecology | DX: N81.4 Uterovaginal prolapse, unspecified (principal) | CPT/HCPCS: 99212 ==

== ENCOUNTER 2023-10-29 08:01 | Outpatient (AMB) | payer MEDICARE, SELFPAY ==
[2023-10-29 08:07] LABS: ~PT, ~INR - Anti Coag Clinic 2.8 (0.9-1.1)
--- NOTE | 2023-10-29 08:10 | MHC.OFFVISCO ---
Intake Intake Visit Reasons: Anticoagulation Allergies codeine [CODEINE] Allergy (Intermediate, Verified 10/29/23 08:01) HEADACHES hydrochlorothiazide [HYDROCHLOROTHIAZIDE] Allergy (Intermediate, Verified 10/29/23 08:01) NAUSEA & VOMITING, low K latex [LATEX] Allergy (Intermediate, Verified 10/29/23 08:01) RASH lisinopril [LISINOPRIL] Adverse Reaction (Mild, Verified 10/29/23 08:01) COUGH Medication List - Last Reconciled 10/29/23 by April Munoz RN amlodipine 10 mg PO DAILY atorvastatin 40 mg PO DAILY benzonatate 100 mg PO BID-TID PRN cholecalciferol (vitamin D3) 25 mcg PO DAILY dronedarone (Multaq) 400 mg PO BID 90 days furosemide 20 mg PO DAILY losartan 50 mg PO DAILY metoprolol tartrate 25 mg (1/2 x 50 mg) PO BID nystatin (Nystop) 1 appl topical BID PRN simethicone (Gas Relief (simethicone)) 250 mg PO BID PRN triamcinolone acetonide 0.1% 1 appl topical BID warfarin 5 mg See Protocol PO DAILY Nursing Note NO CP,SOB,DIET/MED CHANGES,FALLS OR SX OF BLEEDING. CONTINUE 2.5MGHM DAILY AND FOLLOW UP IN 4 WEEKS. GOOD UNDERSTANDING VERB. Anti-Coag Initial Assessment Social Hx Patient Tobacco Use Status: Former Tobacco user Quit Date: 1971 alcohol intake: unknown Alcohol intake frequency: holidays/special occasions only Cardiovascular Hx: HTN, Arrhythmias and Other Musculoskeletal Hx: Arthritis Blood Disorder Hx: Hyperlipidemia GI Hx: Bleeding (GI, rectal) and Hemorrhoids Cancer HX: No Psych. 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
== END 2023-10-29 08:15 | disposition home or self-care (01) ==
LOC: HO.ACS 08:01
PROVIDERS: PCP Internal Medicine; Visit Provider Internal Medicine
DX: Z79.01 Long term (current) use of anticoagulants (principal)

== ENCOUNTER → 2023-10-29 08:01 | Outpatient (BNVA) | payer MEDICARE, SELFPAY | PROVIDERS: PCP Internal Medicine; Visit Provider Internal Medicine | DX: I48.91 Unspecified atrial fibrillation (principal); Z79.01 Long term (current) use of anticoagulants; Z51.81 Encounter for therapeutic drug level monitoring | CPT/HCPCS: 85610; 99211 ==

== ENCOUNTER → 2023-11-05 09:03 | Outpatient (REF) | payer MEDICARE, SELFPAY ==
--- NOTE | 2023-11-05 09:05 | CA_ITS ---
Transthoracic Echocardiogram Patient (Last, First, Middle): ToddMarch, Gender: Female Date of : 1940 Age: 83 Procedure Date: 11/05/2023 Procedure Type: Transthoracic Echocardiogram Location: OP Height: 154.94 cm Weight: 73.94 kg BSA: 1.73 m2 Heart Rate: 53 bpm BP: 120 / 72 mmHg Tobacco Prevention Health Educator: ABHIJEET Referring MD: Carson Angelo MD Assembler Fishing Floats: Carson Angelo MD Symptoms: I48.0 - Paroxysmal atrial fibrillation Study Quality: Adequate ECG Rhythm: Bradycardia Conclusions: - 1. Normal LV ejection fraction of 60 65% with impaired relaxation filling pattern 2. At least mildly dilated left atrium 3. Mildly dilated ascending aorta at 3.9 cm 4. Normal cardiac valvular Dopplers 5. No gross pericardial effusion Findings Left Ventricle Normal left ventricular size, thickness, and systolic function. The visually estimated ejection fraction is between 60-65%. Spectral Doppler is indicative of an impaired relaxation filling pattern. E/E prime ratio is between 8 and 15 consistent with indeterminate filling pressures. There is mild septal asymmetric hypertrophy. Peak GLS is -19.1%, within normal limits. Right Ventricle Normal right ventricular cavity size and systolic function. Atria The left atrium is mildly dilated. There is no evidence of interatrial shunt. The right atrium is normal in size. Aortic Valve The aortic valve structure and function is likely normal. There is no aortic valve stenosis. There is no aortic valve regurgitation. Mitral Valve There is mild anterior mitral leaflet thickening. There is mild mitral annular calcification. There is trace mitral valve regurgitation. There is no mitral valve stenosis. Pulmonic Valve The pulmonic valve is likely normal. There is trace pulmonic valve regurgitation. Tricuspid Valve Normal tricuspid valve structure. Tricuspid regurgitation envelope is inadequate for calculation of right ventricular systolic pressure. Normal right atrial pressure. Great Vessels The pulmonary artery was not well visualized. There is mild dilatation of the ascending aorta measuring 3.90 cm. Venous The inferior vena cava is normal in size and collapses greater than 50% with inspiration. Pericardium/Pleural There is no evidence of pericardial effusion. Prior Study Comparison Changes noted compared to prior study dated: 08/05/2022. left atrium does not appear to be significantly dilated on this study. Could be underestimated. Ascending aorta is mildly dilated on this study. Delayed reporting due to technical issues Measurements 2D Linear Measurements IVSd: 1.20 0.6-0.9/0.6-1.0 cm LVIDd: 4.35 3.9-5.3/4.2-5.9 cm LVIDd Index: 2.51 2.4-3.2/2.2-3.1 cm/m2 LVIDs: 3.39 2.0-3.6 cm LVPWd: 0.82 0.7-1.1 cm LA Diam: 4.00 2.7-3.8/3.0-4.0 cm LAIDs Index: 2.31 1.5-2.3 cm/m2 LV Mass: 218.58 67-162/88-224 g LV Mass Index: 126.35 43-95/49-115 g/m2 LVOT Diam: 2.10 3.0+(-)1.3 cm 2D Systolic Function EF 4C: 63.60 >55% EF 2C: 64.00 >55% EF BiP: 64.50 >55% Mitral Valve MV Pk E: 0.70 MV PK A: 0.89 MV Decel Time: 213.00 E/A: 0.80 E'Lateral: 7.51 E'Medial: 5.87 E/E' Med: 11.90 E/E' Lat: 9.30 PHT: 62.00 MVA PHT: 3.55 Decel [place]: 3.28 Aortic Valve AoV Pk Graham: 1.13 AoV Pk Grad: 5.00 ASHLEY: 3.02 LVOT LVOT Pk Graham: 0.99 LVOT Mn Graham: 0.62 LVOT VTI: 0.26 LVOT Pk Grad: 4.00 LVOT Mn Grad: 2.00 LVOT Diam: 2.10 LVOT Area: 3.46 Diastolic Function MV Pk E: 0.70 MV Pk A: 0.89 E/A: 0.80 E'Medial: 5.87 E/E' Med: 11.90 E' Laterial: 7.51 E/E' Lat: 9.30 Right Ventricle TAPSE (mm): 33.60 TVS' Graham: 17.70 Tricuspid Valve TR Pk Graham: 2.17 TR Pk Grad: 19.00 RA Press: 3.00 Great Vessels Aorta Sinus of Valsalva: 3.60 2.0-3.5 cm Ao Asc: 3.90 2.1-3.4 cm Pulmonary Valve PV Pk Graham: 0.88 Peak PV Grad: 3.00 KS Pk Graham: 1.83 Updated in Other Vendor System with Status of Final Carson Angelo MD electronically signed on 11/06/2023 1:10:01 PM with status of Final
== END ==
LOC: HO.CARD 09:03
PROVIDERS: PCP Internal Medicine; Visit Provider Internal Medicine Cardiovascular Disease
DX: I48.0 Paroxysmal atrial fibrillation (principal)
CPT/HCPCS: 93306; 93356

== ENCOUNTER → 2023-11-05 09:05 | Outpatient (BNV) | payer MEDICARE, SELFPAY | PROVIDERS: PCP Internal Medicine; Visit Provider Internal Medicine Cardiovascular Disease | DX: I34.81 Nonrheumatic mitral (valve) annulus calcification (principal) | CPT/HCPCS: 93306 ==

== ENCOUNTER 2023-11-19 09:43 | Outpatient (AMB) | payer OTHER, SELFPAY ==
[2023-11-19 10:03] VITALS: BP 124/74; PULSE 58; BMI 30.8
--- NOTE | 2023-11-19 10:03 | A.OFFVIS_ITS ---
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 Allergies codeine [CODEINE] Allergy (Intermediate, Verified 10/29/23 08:01) HEADACHES hydrochlorothiazide [HYDROCHLOROTHIAZIDE] Allergy (Intermediate, Verified 10/29/23 08:01) NAUSEA & VOMITING, low K latex [LATEX] Allergy (Intermediate, Verified 10/29/23 08:01) RASH lisinopril [LISINOPRIL] Adverse Reaction (Mild, Verified 10/29/23 08:01) COUGH Medication List - Last Reconciled 11/19/23 by Carson Angelo MD amlodipine 10 mg PO DAILY atorvastatin 40 mg PO DAILY benzonatate 100 mg PO BID-TID PRN cholecalciferol (vitamin D3) 25 mcg PO DAILY dronedarone (Multaq) 400 mg PO BID 90 days furosemide 20 mg PO DAILY PRN losartan 50 mg PO DAILY metoprolol tartrate 25 mg (1/2 x 50 mg) PO BID nystatin (Nystop) 1 appl topical BID PRN simethicone (Gas Relief (simethicone)) 250 mg PO BID PRN triamcinolone acetonide 0.1% 1 appl topical BID warfarin 5 mg See Protocol PO DAILY HPI HPI Comments History of Present Illness Details March comes for follow-up. She has been doing well overall. 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 She is able to do this. She still has intermittent episodes of atrial fibrillation about once a month without any clear triggers. Last for about couple of hours. This bothers her. At other times her heart rate is on the slow side. Although she has no lightheadedness, syncope. She occasionally notices some shortness of breath with exertion but denies any orthopnea, PND. No bleeding issues or neurologic events. Overall taking her medications. [facility] Medical History Osteoporosis Uterine prolapse Rectocele Hyperlipidemia Sinus bradycardia Atrial fibrillation Paroxysmal atrial fibrillation HTN (hypertension) Surgical History History of cholecystectomy Hx of tubal ligation Family History Father CVD (cardiovascular disease) Mother CVD (cardiovascular disease) Diabetes Other Substance use disorder Social History Household Members: Family Housing: House Do you presently have visiting nurse or other home services: No Alcohol intake: unknown Patient Tobacco Use Status: Former Tobacco user Quit Date: 1971 Years Smoked: 12 +/- e-Cigarette/Vaping Use: Never Used service: No Current occupational status: retired 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 Current occupational exposures/hazards: No Cognitive needs: No Hearing needs: No Vision needs: Yes Review of Systems Const Denies chills, Denies fatigue, Denies fever(s), Denies frequent falls, Denies weakness, Denies weight gain and Denies weight loss ENT Denies dizziness Card Denies chest pain, Denies leg edema, Denies lightheadedness, Denies palpitations, Denies dyspnea, Denies dyspnea on exertion, Denies orthopnea and Denies other (loss of consciousness) Resp Denies cough, Denies dyspnea and Denies dyspnea on exertion GI Denies hematochezia and Denies change in stool character Musc Denies abnormal gait, Denies muscle weakness, Denies numbness, Denies radiating pain into limb and Denies tingling Neuro Denies abnormal gait, Denies dizziness, Denies frequent falls, Denies numbness, Denies tingling and Denies weakness Endo Denies fatigue and Denies palpitations Physical Exam Vital Signs: Last Vital Signs Pulse 58 11/19/23 10:03 BP 124/74 11/19/23 10:03 BMI result Body Mass Index 30.8 Const General: cooperative, comfortable, no acute distress, alert and awake Nutritional Appearance: overweight Orientation/consciousness: patient oriented x3 Limitations: no limitations Neck Neck: Yes trachea midline, Yes supple and Yes JVD (Mild abdominal jugular reflux) Resp Effort & Inspection: normal respiratory effort Auscultation: clear to auscultation bilaterally Cardio Jugular venous distension: no JVD Palpation: normal PMI Rate: regular rate Rhythm: regular rhythm Heart sounds: S1 normal heart sound present, S2 normal heart sound present and Other heart sounds present (S4 present) GI Auscultation: normal bowel sounds Skin General skin exam: no rashes or lesions noted Neuro General: patient oriented x3 and no focal motor deficits Extrem General: No clubbing, No cyanosis and Yes edema (2+ bilateral below knee) Psych Appearance: grossly normal Affect: Anxious affect present Office Procedures EKG Details: EKG shows sinus bradycardia nonspecific ST T wave changes [id number], Complete Assessment & Plan Assessment & Plan (1) Paroxysmal atrial fibrillation: Comment: Rhythm controlled on amiodarone, anticoagulated on warfarin follows up with Cardiology Code(s): I48.0 - Paroxysmal atrial fibrillation Plan: Highly symptomatic paroxysmal atrial fibrillation currently on Multaq therapy. Overall burden is low. Discussed about taking pill in the pocket approach with metoprolol when she has episodes of atrial fibrillation to reduce her symptoms. Continue to avoid stimulants. Continue full oral anticoagulation, currently on warfarin therapy. Being followed by [facility]. Target INR between 2 and 3. (2) HTN (hypertension): Code(s): I10 - Essential (primary) hypertension Plan: Hypertension which is currently well optimized advised to monitor blood pressure at home maintain a log. Goal blood pressure less than 130/84. Low-salt diet was discussed importance of good blood pressure control was discussed. She understands and agrees. Will follow up in the clinic in 3 months for EKG in 6 months with me. Thank you for allowing me to partake in her care Medications: Changed From furosemide 20 mg PO DAILY 30 tabs 4RF R06.02 - Shortness of breath To furosemide 20 mg PO DAILY PRN R06.02 - Shortness of breath Coding Level of Care Code Est Pt Level 4 (72867) Diagnoses Paroxysmal atrial fibrillation I48.0 HTN (hypertension) I10 CPT Codes EKG - CPT: 37313-[id number], Complete ([id number])
== END 2023-11-19 10:27 | disposition home or self-care (01) ==
PROVIDERS: Visit Provider Internal Medicine Cardiovascular Disease
DX: I48.0 Paroxysmal atrial fibrillation (principal); I10 Essential (primary) hypertension
CPT/HCPCS: 93010; 99214

== ENCOUNTER → 2023-11-19 09:43 | Outpatient (BNVA) | payer MEDICARE, SELFPAY | PROVIDERS: Visit Provider Internal Medicine Cardiovascular Disease | DX: I48.0 Paroxysmal atrial fibrillation (principal); I10 Essential (primary) hypertension | CPT/HCPCS: 93005; 99212 ==

== ENCOUNTER 2023-11-26 07:57 | Outpatient (AMB) | payer OTHER, SELFPAY ==
[2023-11-26 08:04] LABS: Prothrombin Time Whole Bld POC 36.1 sec (11.1-13.5)
--- NOTE | 2023-11-26 08:05 | MHC.OFFVISCO ---
Intake Intake Visit Reasons: Anticoagulation Allergies codeine [CODEINE] Allergy (Intermediate, Verified 11/26/23 07:57) HEADACHES hydrochlorothiazide [HYDROCHLOROTHIAZIDE] Allergy (Intermediate, Verified 11/26/23 07:57) NAUSEA & VOMITING, low K latex [LATEX] Allergy (Intermediate, Verified 11/26/23 07:57) RASH lisinopril [LISINOPRIL] Adverse Reaction (Mild, Verified 11/26/23 07:57) COUGH Medication List - Last Reconciled 11/26/23 by Em Barboza RN amlodipine 10 mg PO DAILY atorvastatin 40 mg PO DAILY benzonatate 100 mg PO BID-TID PRN cholecalciferol (vitamin D3) 25 mcg PO DAILY dronedarone (Multaq) 400 mg PO BID 90 days furosemide 20 mg PO DAILY PRN losartan 50 mg PO DAILY metoprolol tartrate 25 mg (1/2 x 50 mg) PO BID nystatin (Nystop) 1 appl topical BID PRN simethicone (Gas Relief (simethicone)) 250 mg PO BID PRN triamcinolone acetonide 0.1% 1 appl topical BID warfarin 5 mg See Protocol PO DAILY Nursing Note INR: 3.0 in therapeutic range Medications and supplements reviewed No changes in health, diet, medications, or supplements, Denies any signs and symptoms of bleeding or bruising or clotting. Bleeding, bruising, clotting discussed Nutritional guidance given Dose: 2.5MG DAILY F/U INR: 1MONTH Patient verbalizes understanding of instructions given Anti-Coag Initial Assessment Social Hx Patient Tobacco Use Status: Former Tobacco user Quit Date: 1971 alcohol intake: unknown Alcohol intake frequency: holidays/special occasions only Cardiovascular Hx: HTN, Arrhythmias and Other Musculoskeletal Hx: Arthritis Blood Disorder Hx: Hyperlipidemia GI Hx: Bleeding (GI, rectal) and Hemorrhoids Cancer HX: No Psych. Illness/Depression: No Coding Level of Care Code Est Patient Level 1 Diagnoses Current use of anticoagulant therapy Z79.01 Assessment & Plan Assessment & Plan (1) Current use of anticoagulant therapy: Code(s): Z79.01 - FDC (current) use of anticoagulants Category: Medical
== END 2023-11-26 08:07 | disposition home or self-care (01) ==
LOC: HO.ACS 07:57
PROVIDERS: PCP Internal Medicine; Visit Provider Internal Medicine
DX: Z79.01 Long term (current) use of anticoagulants (principal)

== ENCOUNTER → 2023-11-26 07:57 | Outpatient (BNVA) | payer OTHER, SELFPAY | PROVIDERS: PCP Internal Medicine; Visit Provider Internal Medicine | DX: I48.0 Paroxysmal atrial fibrillation (principal); Z79.01 Long term (current) use of anticoagulants; Z51.81 Encounter for therapeutic drug level monitoring | CPT/HCPCS: 85610; 99211 ==

== ENCOUNTER 2023-12-24 07:57 | Outpatient (AMB) | payer OTHER, SELFPAY ==
[2023-12-24 08:15] LABS: Prothrombin Time Whole Bld POC 21.3 sec (11.1-13.5); ~PT, ~INR - Anti Coag Clinic 1.8 (0.9-1.1)
--- NOTE | 2023-12-24 08:20 | MHC.OFFVISCO ---
Intake Intake Visit Reasons: Anticoagulation Allergies codeine [CODEINE] Allergy (Intermediate, Verified 12/24/23 08:00) HEADACHES hydrochlorothiazide [HYDROCHLOROTHIAZIDE] Allergy (Intermediate, Verified 12/24/23 08:00) NAUSEA & VOMITING, low K latex [LATEX] Allergy (Intermediate, Verified 12/24/23 08:00) RASH lisinopril [LISINOPRIL] Adverse Reaction (Mild, Verified 12/24/23 08:00) COUGH Nursing Note INR: 1.8 out of therapeutic range Medications and supplements reviewed, no changes No changes in health, diet, medications, or supplements, Denies any signs and symptoms of bleeding or bruising or clotting. Bleeding, bruising, clotting discussed Nutritional guidance given, no greens today or tomorrow Dose: increase dose today to 5mg and then continue 2.5mg daily F/U INR: 2 weeks Patient verbalizes understanding of instructions given Anti-Coag Initial Assessment Social Hx Patient Tobacco Use Status: Former Tobacco user Quit Date: 1971 alcohol intake: unknown Alcohol intake frequency: holidays/special occasions only Cardiovascular Hx: HTN, Arrhythmias and Other Musculoskeletal Hx: Arthritis Blood Disorder Hx: Hyperlipidemia GI Hx: Bleeding (GI, rectal) and Hemorrhoids Cancer HX: No Psych. Illness/Depression: No Coding Level of Care Code Est Patient Level 1 Diagnoses Current use of anticoagulant therapy Z79.01 Results AMB INR Fingerstick AMB INR Fingerstick 1.8 Last Edit by Flavia Durand, RN on 12/24/23 08:13 interface delay Assessment & Plan Assessment & Plan (1) Current use of anticoagulant therapy: Code(s): Z79.01 - alf (current) use of anticoagulants Category: Medical
== END 2023-12-24 08:24 | disposition home or self-care (01) ==
LOC: HO.ACS 07:57
PROVIDERS: PCP Internal Medicine; Visit Provider Internal Medicine
DX: Z79.01 Long term (current) use of anticoagulants (principal)

== ENCOUNTER → 2023-12-24 07:57 | Outpatient (BNVA) | payer OTHER, SELFPAY | PROVIDERS: PCP Internal Medicine; Visit Provider Internal Medicine | DX: I48.0 Paroxysmal atrial fibrillation (principal); Z79.01 Long term (current) use of anticoagulants; Z51.81 Encounter for therapeutic drug level monitoring | CPT/HCPCS: 85610; 99211 ==

== ENCOUNTER 2024-01-07 08:04 | Outpatient (AMB) | payer OTHER, SELFPAY ==
--- NOTE | 2024-01-07 08:31 | MHC.OFFVISCO ---
Intake Intake Visit Reasons: Anticoagulation Allergies codeine [CODEINE] Allergy (Intermediate, Verified 01/07/24 08:21) HEADACHES hydrochlorothiazide [HYDROCHLOROTHIAZIDE] Allergy (Intermediate, Verified 01/07/24 08:21) NAUSEA & VOMITING, low K latex [LATEX] Allergy (Intermediate, Verified 01/07/24 08:21) RASH lisinopril [LISINOPRIL] Adverse Reaction (Mild, Verified 01/07/24 08:21) COUGH Medication List - Last Reconciled 01/07/24 by Em Barboza RN amlodipine 10 mg PO DAILY atorvastatin 40 mg PO DAILY benzonatate 100 mg PO BID-TID PRN cholecalciferol (vitamin D3) 25 mcg PO DAILY dronedarone (Multaq) 400 mg PO BID 90 days furosemide 20 mg PO DAILY PRN losartan 50 mg PO DAILY metoprolol tartrate 25 mg (1/2 x 50 mg) PO BID nystatin (Nystop) 1 appl topical BID PRN simethicone (Gas Relief (simethicone)) 250 mg PO BID PRN triamcinolone acetonide 0.1% 1 appl topical BID warfarin 5 mg See Protocol PO DAILY Nursing Note INR: 2.1 in therapeutic range Medications and supplements reviewed No changes in health, diet, medications, or supplements, Denies any signs and symptoms of bleeding or bruising or clotting. Bleeding, bruising, clotting discussed Nutritional guidance given Dose: 2.5MG DAILY F/U INR: 1 MONTH Patient verbalizes understanding of instructions given Anti-Coag Initial Assessment Social Hx Patient Tobacco Use Status: Former Tobacco user Quit Date: 1971 alcohol intake: unknown Alcohol intake frequency: holidays/special occasions only Cardiovascular Hx: HTN, Arrhythmias and Other Musculoskeletal Hx: Arthritis Blood Disorder Hx: Hyperlipidemia GI Hx: Bleeding (GI, rectal) and Hemorrhoids Cancer HX: No Psych. Illness/Depression: No Questionnaires HAS-BLED Does the patient had uncontrolled Hypertension?: No Does the patient have renal disease?: No Does the patient have liver disease?: No Does the patient have a history of stroke?: No Has the patient had major bleeding or predisposition to bleeding?: No Does the patient have labile INRs?: No Is the patient over 65 years of age?: Yes Is the patient on medications that gives them a predisposition to bleeding?: Yes Does the patient use alcohol?: No HAS-BLED Score: 2 CHADSVASC Age: 75 or over Gender: Female Does the patient have a history of CHF?: Yes Does the patient have a history of Hypertension?: Yes Does the patient have a history of Stroke/TIA/Thromboembolism?: No Does the patient have a history of Vascular Disease (prior ID, PAD or aortic plaque)?: Yes (on cholesterol med) Does the patient have a history of Diabetes?: No CHADS VACS Score: 6 Brad Prediction Score Rsk VTE Active Cancer: No Previous VTE, excluding superficial vein thrombosis: No Reduced mobility: No Already known Thrombophilic Condition: Yes (afib) With-in last month Trauma and/or Surgery: No Elderly 70 year or older: Yes Heart and/or Respiratory Failure: No Acute Myocardial infarction and/or Ischemic Stroke: No Acute Infection and/or Rheumatologic Disorder: No Obesity (BMI 30 or greater): Yes Ongoing Hormonal Treatment: No Score: 5 Brad Score less than 4; Low Risk of VTE Brad Score 4 or greater; High Risk of VTE Coding Level of Care Code Est Patient Level 1 Diagnoses Current use of anticoagulant therapy Z79.01 Results AMB INR Fingerstick AMB INR Fingerstick 2.1 Last Edit by Em Barboza RN on 01/07/24 08:28 MANUAL ENTRY Assessment & Plan Assessment & Plan (1) Current use of anticoagulant therapy: Code(s): Z79.01 - intermediate manager (current) use of anticoagulants Category: Medical
[2024-01-07 08:51] LABS: Prothrombin Time Whole Bld POC 25.1 sec (11.1-13.5); ~PT, ~INR - Anti Coag Clinic 2.1 (0.9-1.1)
== END 2024-01-07 08:34 | disposition home or self-care (01) ==
LOC: HO.ACS 08:04
PROVIDERS: PCP Internal Medicine; Visit Provider Internal Medicine
DX: Z79.01 Long term (current) use of anticoagulants (principal)

== ENCOUNTER → 2024-01-07 08:04 | Outpatient (BNVA) | payer OTHER, SELFPAY | PROVIDERS: PCP Internal Medicine; Visit Provider Internal Medicine | DX: I48.0 Paroxysmal atrial fibrillation (principal); Z79.01 Long term (current) use of anticoagulants; Z51.81 Encounter for therapeutic drug level monitoring | CPT/HCPCS: 85610; 99211 ==

== ENCOUNTER 2024-01-21 14:24 | Outpatient (AMB) | payer OTHER, SELFPAY ==
--- NOTE | 2024-01-21 14:39 | A.OFFVIS_ITS ---
Vital Signs 01/21/24 14:42 Height 5 ft 1 in Weight 163 lb 2.273 oz BMI 30.8 BP 118/70 Intake Visit Reasons: Pessary placement consult [employer] Clerk Required: No Information Interpreted: non-clinical & clinical Almond Blancher Hand: Almond Blancher Hand Present (Elida Jassi BARNEY) Accompanied by: Self / Same As Patient Allergies codeine [CODEINE] Allergy (Intermediate, Verified 01/21/24 14:43) HEADACHES hydrochlorothiazide [HYDROCHLOROTHIAZIDE] Allergy (Intermediate, Verified 0 01/21/24 14:43) NAUSEA & VOMITING, low K latex [LATEX] Allergy (Intermediate, Verified 01/21/24 14:43) RASH lisinopril [LISINOPRIL] Adverse Reaction (Mild, Verified 01/21/24 14:43) COUGH Post menopausal: Yes HPI Comments Details: Presenting requesting for pessary placed back in, the patient tried a period of expectant manage without a pessary and and now is feeling uncomfortable with the vaginal bulge no other concerns PFSH Medical History Osteoporosis Uterine prolapse Rectocele Hyperlipidemia Sinus bradycardia Atrial fibrillation Paroxysmal atrial fibrillation HTN (hypertension) Surgical History History of cholecystectomy Hx of tubal ligation Family History Father CVD (cardiovascular disease) Mother CVD (cardiovascular disease) Diabetes Other Substance use disorder Social History Household Members: Family Housing: House Do you presently have visiting nurse or other home services: No Alcohol intake: unknown Patient Tobacco Use Status: Former Tobacco user Quit Date: 1971 Smoked: 12 +/- e-Cigarette/Vaping Use: Never Used service: No Current occupational status: retired 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 Current occupational exposures/hazards: No Cognitive needs: No Hearing needs: No Vision needs: Yes Physical Exam Vital Signs: Last Vital Signs BP 118/70 01/21/24 14:42 BMI result Body Mass Index 30.8 External Female Exam: normal external appearance Speculum Exam - Vagina: normal appearance of the vagina and other (Moderate rectocele) Bimanual exam- vagina & uterus: other (Moderate uterine prolapse) Bimanual Exam- Adnexa, other: normal adnexae Assessment & Plan Assessment & Plan (1) Uterine prolapse: Comment: With rectocele Code(s): N81.4 - Uterovaginal prolapse, unspecified Category: Medical Plan: Ring pessary #4 inserted in the vagina. Afterwards the pt did not feel it in, and did not have any pain or pressure. After Valsalva x 3 ( lying down, sitting and standing up ) pessary stayed in and pt was able to void freely with the pessary in the vagina. At the end the patient was instructed to come back in 3 months. Meanwhile the patient was instructed to call if vaginal pain, pressure or discharge occurs. Vaginal Trimosan Gel is to be used x2-3 x/week. The patient verbalized understanding and all questions were answered.
[2024-01-21 14:42] VITALS: BP 118/70; BMI 30.8
== END 2024-01-21 14:59 | disposition home or self-care (01) ==
LOC: HO.HWS 14:24
PROVIDERS: PCP Internal Medicine; Visit Provider Obstetrics & Gynecology
DX: N81.4 Uterovaginal prolapse, unspecified (principal)
CPT/HCPCS: 99213

== ENCOUNTER → 2024-01-21 14:24 | Outpatient (BNVA) | payer OTHER, SELFPAY | PROVIDERS: PCP Internal Medicine; Visit Provider Obstetrics & Gynecology | DX: N81.4 Uterovaginal prolapse, unspecified (principal) | CPT/HCPCS: 99212 ==

== ENCOUNTER 2024-02-04 07:59 | Outpatient (AMB) | payer OTHER, SELFPAY ==
[2024-02-04 08:08] LABS: Prothrombin Time Whole Bld POC 23.4 sec (11.1-13.5); ~PT, ~INR - Anti Coag Clinic 1.9 (0.9-1.1)
--- NOTE | 2024-02-04 08:14 | MHC.OFFVISCO ---
Intake Intake Visit Reasons: Anticoagulation Allergies codeine [CODEINE] Allergy (Intermediate, Verified 02/04/24 08:02) HEADACHES hydrochlorothiazide [HYDROCHLOROTHIAZIDE] Allergy (Intermediate, Verified 02/04/24 08:02) NAUSEA & VOMITING, low K latex [LATEX] Allergy (Intermediate, Verified 02/04/24 08:02) RASH lisinopril [LISINOPRIL] Adverse Reaction (Mild, Verified 02/04/24 08:02) COUGH Medication List - Last Reconciled 02/04/24 by Flavia Durand, RN amlodipine 10 mg PO DAILY atorvastatin 40 mg PO DAILY cholecalciferol (vitamin D3) 25 mcg PO DAILY dronedarone (Multaq) 400 mg PO BID 90 days furosemide 20 mg PO DAILY PRN losartan 50 mg PO DAILY metoprolol tartrate 25 mg (1/2 x 50 mg) PO BID nystatin (Nystop) 1 appl topical BID PRN simethicone (Gas Relief (simethicone)) 250 mg PO BID PRN triamcinolone acetonide 0.1% 1 appl topical BID warfarin 5 mg See Protocol PO DAILY Nursing Note INR 1.9?out of therapeutic range of 2-3 Medications and supplements reviewed Patient status: well Medications or supplements: no new Diet: same Denies any signs and symptoms of bleeding or clotting or unusual bruising Bleeding, bruising, clotting discussed Nutritional guidance given: to avoid greens the next 2 days and have a serving of the reds next 2 days Dose: usual dose of 2.5mg daily F/U INR Date : 1 month?? Patient verbalizing understanding of instructions given. Anti-Coag Initial Assessment Social Hx Patient Tobacco Use Status: Former Tobacco user Quit Date: 1971 alcohol intake: unknown Alcohol intake frequency: holidays/special occasions only Cardiovascular Hx: HTN, Arrhythmias and Other Musculoskeletal Hx: Arthritis Blood Disorder Hx: Hyperlipidemia GI Hx: Bleeding (GI, rectal) and Hemorrhoids Cancer HX: No Psych. Illness/Depression: No Coding Level of Care Code Est Patient Level 1 Diagnoses Current use of anticoagulant therapy Z79.01 Assessment & Plan Assessment & Plan (1) Current use of anticoagulant therapy: Code(s): Z79.01 - FDC (current) use of anticoagulants Category: Medical
== END 2024-02-04 08:16 | disposition home or self-care (01) ==
LOC: HO.ACS 07:59
PROVIDERS: PCP Internal Medicine; Visit Provider Internal Medicine
DX: Z79.01 Long term (current) use of anticoagulants (principal)

== ENCOUNTER → 2024-02-04 07:59 | Outpatient (BNVA) | payer OTHER, SELFPAY | PROVIDERS: PCP Internal Medicine; Visit Provider Internal Medicine | DX: I48.0 Paroxysmal atrial fibrillation (principal); Z51.81 Encounter for therapeutic drug level monitoring; Z79.01 Long term (current) use of anticoagulants | CPT/HCPCS: 85610; 99211 ==

== ENCOUNTER 2024-02-16 06:47 | Outpatient (REF) | payer OTHER, SELFPAY ==
[2024-02-16 10:42] LABS: MANUAL DIFF FLAG NO
[2024-02-16 10:52] LABS: Basophils Percent Auto 0.5 % (0-2); Eosinophils Absolute Auto 0.2 X10*3/uL (0.0-0.4); Eosinophils Percent Auto 1.8 % (0-4); Hemoglobin 14.4 g/dl (12.0-16.0); Imm Gran Abs Auto 0.03 X10*3/uL (0.00-0.03); Imm Gran Pct Auto 0.4 % (0.0-0.4); Lymphocytes Absolute Auto 2.3 X10*3/uL (1.2-4.9); Mean Corpuscular HGB Conc 34.3 g/dl (31.0-35.0); Mean Corpuscular Hemoglobin 30.6 pg (27.0-33.0); Mean Corpuscular Volume 89.2 fL (80.0-98.0); Mean Platelet Volume 10.7 fL (9.4-12.3); Monocytes Absolute Auto 0.6 X10*3/uL (0.1-1.2); Monocytes Percent Auto 7.5 % (2-11); Neutrophils Absolute Auto 5.2 x10*3/uL (2.0-8.3); Neutrophils Percent Auto 61.8 % (45-73); Platelet Count 210 X10*3/uL (160-400); Red Blood Count 4.71 X10*6/uL (4.20-5.50); Red Cell Distribution Width 13.2 % (11.0-16.0); White Blood Count 8.4 X10*3/uL (4.8-10.8)
[2024-02-16 11:43] LABS: Alanine Aminotransferase 15 U/L (0-31); Alkaline Phosphatase 97 U/L (39-117); Anion Gap 12 (12-20); Aspartate Amino Transferase 18 U/L (5-31); Bilirubin Total 1.5 mg/dL (0.0-1.0); Blood Urea Nitrogen 21 mg/dL (9-16); Calcium 9.7 mg/dL (8.4-10.2); Carbon Dioxide 24 mmol/L (22-29); Chloride 108 mmol/L (96-108); Cholesterol 170 mg/dL (<200); Estimated Glomerular Filt Rate > 60; Glucose Fasting 103 mg/dL (60-99); HDL Cholesterol 50 mg/dL (>40); LDL Cholesterol Calculated 105 mg/dL (<100); Sodium 140 mmol/L (135-145); TSH reflex Free T4 1.25 uIU/mL (0.32-4.0); Total Protein 6.8 g/dL (6.5-8.0); Triglycerides 78 mg/dL (<150)
== END 2024-02-16 06:48 | disposition home or self-care (01) ==
LOC: HO.HMGCLDS 06:47
PROVIDERS: PCP Internal Medicine; Visit Provider Internal Medicine
DX: E78.5 Hyperlipidemia, unspecified (principal); I48.0 Paroxysmal atrial fibrillation; I10 Essential (primary) hypertension
CPT/HCPCS: 36415; 80053; 80061; 84443; 85025

== ENCOUNTER 2024-03-03 08:34 | Outpatient (AMB) | payer OTHER, SELFPAY ==
[2024-03-03 08:45] LABS: Prothrombin Time Whole Bld POC 28.8 sec (11.1-13.5); ~PT, ~INR - Anti Coag Clinic 2.4 (0.9-1.1)
--- NOTE | 2024-03-03 08:49 | MHC.OFFVISCO ---
Intake Intake Visit Reasons: Anticoagulation Allergies codeine [CODEINE] Allergy (Intermediate, Verified 03/03/24 08:41) HEADACHES hydrochlorothiazide [HYDROCHLOROTHIAZIDE] Allergy (Intermediate, Verified 03/03/24 08:41) NAUSEA & VOMITING, low K latex [LATEX] Allergy (Intermediate, Verified 03/03/24 08:41) RASH lisinopril [LISINOPRIL] Adverse Reaction (Mild, Verified 03/03/24 08:41) COUGH Medication List - Last Reconciled 03/03/24 by Flavia Durand, RN amlodipine 10 mg PO DAILY atorvastatin 40 mg PO DAILY cholecalciferol (vitamin D3) 25 mcg PO DAILY dronedarone (Multaq) 400 mg PO BID 90 days furosemide 20 mg PO DAILY PRN losartan 50 mg PO DAILY metoprolol tartrate 25 mg (1/2 x 50 mg) PO BID nystatin (Nystop) 1 appl topical BID PRN simethicone (Gas Relief (simethicone)) 250 mg PO BID PRN triamcinolone acetonide 0.1% 1 appl topical BID warfarin 5 mg See Protocol PO DAILY Nursing Note INR: 2.4 in therapeutic range of 2-3 Medications and supplements reviewed: no changes No changes in health, diet, medications, or supplements, Denies any signs and symptoms of bleeding or bruising or clotting. Bleeding, bruising, clotting discussed Nutritional guidance given to continue to balance the food that raise and food that lowers the INr Dose: 2.5mg daily F/U INR: 4 weeks Patient verbalizes understanding of instructions given Anti-Coag Initial Assessment Social Hx Patient Tobacco Use Status: Former Tobacco user Quit Date: 1971 alcohol intake: unknown Alcohol intake frequency: holidays/special occasions only Cardiovascular Hx: HTN, Arrhythmias and Other Musculoskeletal Hx: Arthritis Blood Disorder Hx: Hyperlipidemia GI Hx: Bleeding (GI, rectal) and Hemorrhoids Cancer HX: No Psych. Illness/Depression: No Coding Level of Care Code Est Patient Level 1 Diagnoses Current use of anticoagulant therapy Z79.01 Assessment & Plan Assessment & Plan (1) Current use of anticoagulant therapy: Code(s): Z79.01 - superintendent terminal (current) use of anticoagulants Category: Medical
== END 2024-03-03 08:54 | disposition home or self-care (01) ==
LOC: HO.ACS 08:34
PROVIDERS: PCP Internal Medicine; Visit Provider Internal Medicine
DX: Z79.01 Long term (current) use of anticoagulants (principal)

== ENCOUNTER → 2024-03-03 08:34 | Outpatient (BNVA) | payer OTHER, SELFPAY | PROVIDERS: PCP Internal Medicine; Visit Provider Internal Medicine | DX: I48.0 Paroxysmal atrial fibrillation (principal); Z79.01 Long term (current) use of anticoagulants; Z51.81 Encounter for therapeutic drug level monitoring | CPT/HCPCS: 85610; 99211 ==

== ENCOUNTER 2024-03-04 12:29 | Outpatient (AMB) | payer OTHER, SELFPAY ==
[2024-03-04 12:51] VITALS: BP 124/56; PULSE 58; O2SAT 96; BMI 31.4
--- NOTE | 2024-03-04 12:51 | A.OFFPC_ITS ---
Vital Signs 03/04/24 12:51 Height 5 ft 1 in Weight 166 lb BMI 31.4 BP 124/56 L Blood Pressure Location Rt brachial Position Sitting Pulse 58 Pulse Source Pulse Oximeter Pulse Oximetry (%) 96 Oxygen Delivery Method Room Air Intake Visit Reasons: Follow up/BP Intake Note: Pt is here today for her b/p f/u Allergies codeine [CODEINE] Allergy (Intermediate, Verified 03/04/24 12:52) HEADACHES hydrochlorothiazide [HYDROCHLOROTHIAZIDE] Allergy (Intermediate, Verified 03/04/24 12:52) NAUSEA & VOMITING, low K latex [LATEX] Allergy (Intermediate, Verified 03/04/24 12:52) RASH lisinopril [LISINOPRIL] Adverse Reaction (Mild, Verified 03/04/24 12:52) COUGH Medication List - Last Reconciled 03/04/24 by Silvia Reynoso MD amlodipine 10 mg PO DAILY atorvastatin 40 mg PO DAILY cholecalciferol (vitamin D3) 25 mcg PO DAILY dronedarone (Multaq) 400 mg PO BID 90 days furosemide 20 mg PO DAILY PRN losartan 50 mg PO DAILY metoprolol tartrate 25 mg (1/2 x 50 mg) PO BID nystatin (Nystop) 1 appl topical BID PRN simethicone (Gas Relief (simethicone)) 250 mg PO BID PRN triamcinolone acetonide 0.1% 1 appl topical BID warfarin 5 mg See Protocol PO DAILY Tobacco use date assessed: 03/04/24 Fall risk assessment: No Falls in past year Last assessed Fall Risk: 03/04/24 Dental Screening Dental Screen Date: 03/04/24 Did you have a dental visit in the last 12 months?: No Was dental information given to patient?: No HPI Follow up/BP HPI Details Patient presents for the follow-up on hypertension paroxysmal AFib hyperlipidemia. She reports worsening lower extremity swelling especially in the warmer weather. Patient has been taking 20 mg of furosemide daily. She reports dyspnea on exertion when walking up the stairs but no chest pain or shortness of breath at rest, palpitations PND or orthopnea. [facility] Medical History Osteoporosis Uterine prolapse Rectocele Hyperlipidemia Sinus bradycardia Atrial fibrillation Paroxysmal atrial fibrillation HTN (hypertension) Surgical History History of cholecystectomy Hx of tubal ligation Family History Father CVD (cardiovascular disease) Mother CVD (cardiovascular disease) Diabetes Other Substance use disorder Social History Household Members: Family Housing: House Do you presently have visiting nurse or other home services: No Alcohol intake: unknown Patient Tobacco Use Status: Former Tobacco user Years Smoked: 12 +/- e-Cigarette/Vaping Use: Never Used service: No 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 1. Little interest or pleasure in doing things: not at all 2. Feeling down, depressed, or hopeless: not at all 3. Trouble falling or staying asleep, or sleeping too much: not at all 4. Feeling tired or having little energy: not at all 5. Poor appetite or overeating: not at all 6. Feeling bad about yourself - or that you are a failure or have let yourself or your family down: not at all 7. Trouble concentrating on things, such as reading the newspaper or watching television: not at all 8. Moving or speaking so slowly that other people could have noticed. Or the opposite - being so fidgety or restless that you have been moving around a lot more than usual: not at all 9. Thoughts that you would be better off or of hurting yourself in some way: not at all Total score: 0 Depression Screening Interpretation: Negative Depression Screening Done: Yes 36762 - PHQ-9 Billing: Yes Source: Developed by Drs. Lior Francois, Dee Arango, Jhoan Coronel and colleagues, with an educational simone from [employer]. Thrive Questionnaire Date Thrive assessed: 03/04/24 I am a: Patient What is your living situation today?: I have a steady place to live Within the past 12 months, did the food you bought not last and you didn't have the money to get more?: Never true Within the past 12 months, did you worry whether your food would run out before you got money to buy more?: Never true Do you have trouble paying for medicines?: No Do you have trouble getting transportation to medical appointments?: No Do you have trouble paying your heating and electricity bill?: No Do you have trouble taking care of your child, family member or friend?: No Do you have trouble with day-to-day activities such as bathing, preparing meals, shopping, managing finances, etc.?: No Are you currently unemployed and looking for a job?: No Are you interested in more education?: No THRIVE Score: 0 AUDIT C Alcohol Use Questionnaire (AUDIT-C) 1. How often do you have a drink containing alcohol?: Never Total Score: 0 RENETTA-7 AMB Questionnaire RENETTA-7 Date RENETTA - 7 assessed: 03/04/24 Feeling nervous, anxious, or on edge: 0 = Not at all Not being able to stop or control worryin = Not at all Worrying too much about different things: 0 = Not at all Trouble relaxin = Not at all Being so restless that it is hard to sit still: 0 = Not at all Becoming easily annoyed or irritable: 0 = Not at all Feeling afraid as if something awful might happen: 0 = Not at all Total RENETTA-7 score (0-4 normal; 5-9 mild; 10-14 moderate; 15-21 severe): 0 Source: Developed by Drs. Lior Francois, Dee Arango, Jhoan Coronel and colleagues, with an educational simone from [employer]. Review of Systems Const All systems reviewed & are unremarkable except as noted in HPI and below Eyes Reports no additional complaints ENT Reports no additional complaints Card Reports no additional complaints Resp Reports no additional complaints GI Reports no additional complaints Reports no additional complaints Physical exam (Primary Care) Vital Signs: Last Vital Signs Pulse 58 03/04/24 12:51 BP 124/56 L 03/04/24 12:51 Pulse Ox 96 03/04/24 12:51 Oxygen Delivery Method Room Air 03/04/24 12:51 BMI result Body Mass Index 31.4 Tobacco/Smoking Status: Tobacco use Status Tobacco use date assessed 03/04/24 03/04/24 12:57 Patient Tobacco Use Status Former Tobacco user 03/04/24 12:57 Tobacco use type 11/27/22 09:43 e-Cigarette/Vaping Use Never Used 03/04/24 12:57 PHQ-9: PHQ-9 Score PHQ-9: Total score 0 03/04/24 12:57 Depression Screening Interpretation: Negative Thrive Assessment: Date of Thrive Assessment Date Thrive assessed 03/04/24 03/04/24 12:57 Const General: no acute distress HENMT Head: Yes normal to inspection Ears: hearing grossly normal bilaterally Mouth: Normal oral and palatal mucosa present Eyes General: appearance normal, both eyes and all related structures Neck Neck: Yes supple Resp Effort & Inspection: normal respiratory effort Auscultation: clear to auscultation bilaterally Cardio Rhythm: regular rhythm Heart sounds: S1 normal heart sound present and S2 normal heart sound present GI Inspection: Yes normal to inspection Palpation (GI): Soft to palpation Extrem Other: 3+ pitting edema bilaterally Assessment and Plan Assessment & Plan (1) HTN (hypertension): Code(s): I10 - Essential (primary) hypertension Plan: Decrease amlodipine to 5 mg a day and increase losartan to 100 mg because of worsening lower extremity swelling. BMP will be checked next week (2) Paroxysmal atrial fibrillation: Comment: Rhythm controlled on amiodarone, anticoagulated on warfarin follows up with Cardiology Code(s): I48.0 - Paroxysmal atrial fibrillation Plan: Patient is anticoagulated on warfarin and rhythm controlled on Multaq (3) Lower extremity edema: Code(s): R60.0 - Localized edema Plan: Increase furosemide to 40 mg a day check BMP in 1 week and decrease amlodipine to 5 mg. Patient will follow-up in 6 weeks Orders: Orders Basic Metabolic Panel 03/10/24 I10 - Essential (primary) hypertension Medications: Changed From furosemide 20 mg PO DAILY PRN 30 tabs 3RF edema R06.02 - Shortness of breath To furosemide 40 mg (2 x 20 mg) PO DAILY 60 tabs 3RF edema R06.02 - Shortness of breath From losartan 50 mg PO DAILY 90 tabs 3RF To losartan 100 mg (2 x 50 mg) PO DAILY 90 tabs 3RF From amlodipine 10 mg PO DAILY 100 tabs 3RF To amlodipine 5 mg (1/2 x 10 mg) PO DAILY 100 tabs 3RF Coding Level of Care Code Est Pt Level 4 (23867) Diagnoses HTN (hypertension) I10 Paroxysmal atrial fibrillation I48.0 Lower extremity edema R60.0
== END 2024-03-04 13:55 | disposition home or self-care (01) ==
PROVIDERS: PCP Internal Medicine; Visit Provider Internal Medicine
DX: I10 Essential (primary) hypertension (principal); I48.0 Paroxysmal atrial fibrillation; R60.0 Localized edema
CPT/HCPCS: 99214

== ENCOUNTER 2024-03-10 08:15 | Outpatient (REF) | payer OTHER, SELFPAY ==
[2024-03-10 10:52] LABS: Anion Gap 12 (12-20); Blood Urea Nitrogen 15 mg/dL (9-16); Calcium 9.6 mg/dL (8.4-10.2); Carbon Dioxide 24 mmol/L (22-29); Chloride 109 mmol/L (96-108); Estimated Glomerular Filt Rate > 60; Glucose Random 132 mg/dL (60-115); Potassium 3.8 mmol/L (3.3-5.1); Sodium 141 mmol/L (135-145)
== END 2024-03-10 08:16 | disposition home or self-care (01) ==
LOC: HO.HMGCLDS 08:15
PROVIDERS: PCP Internal Medicine; Visit Provider Internal Medicine
DX: I10 Essential (primary) hypertension (principal)
CPT/HCPCS: 36415; 80048

== ENCOUNTER 2024-03-10 08:50 | Outpatient (AMB) | payer OTHER, SELFPAY ==
[2024-03-10 09:36] VITALS: BP 139/70; PULSE 59; O2SAT 97; BMI 31.4
--- NOTE | 2024-03-10 09:36 | A.OFFPC_ITS ---
Vital Signs 03/10/24 09:36 Height 5 ft 1 in Weight 166 lb BMI 31.4 BP 139/70 Blood Pressure Location Lt brachial Position Sitting Pulse 59 Pulse Source Pulse Oximeter Pulse Oximetry (%) 97 Oxygen Delivery Method Room Air Intake Visit Reasons: elevated BP Intake Note: Pt is here today for a sick visit. Pt c/o elevated BP. Allergies codeine [CODEINE] Allergy (Intermediate, Verified 03/10/24 09:52) HEADACHES hydrochlorothiazide [HYDROCHLOROTHIAZIDE] Allergy (Intermediate, Verified 03/10/24 09:52) NAUSEA & VOMITING, low K latex [LATEX] Allergy (Intermediate, Verified 03/10/24 09:52) RASH lisinopril [LISINOPRIL] Adverse Reaction (Mild, Verified 03/10/24 09:52) COUGH Medication List - Last Reconciled 03/10/24 by Silvia Reynoso MD amlodipine 5 mg (1/2 x 10 mg) PO DAILY atorvastatin 40 mg PO DAILY cholecalciferol (vitamin D3) 25 mcg PO DAILY dronedarone (Multaq) 400 mg PO BID 90 days furosemide 40 mg (2 x 20 mg) PO DAILY losartan 100 mg (2 x 50 mg) PO DAILY metoprolol tartrate 25 mg (1/2 x 50 mg) PO BID nystatin (Nystop) 1 appl topical BID PRN simethicone (Gas Relief (simethicone)) 250 mg PO BID PRN triamcinolone acetonide 0.1% 1 appl topical BID warfarin 5 mg See Protocol PO DAILY Tobacco use date assessed: 03/04/24 Dental Screening Dental Screen Date: 03/04/24 HPI elevated BP HPI Details Patient presents for the follow-up on hypertension. She tried taking 40 mg of furosemide daily for 3 days over the weekend but was not feeling well. Patient decreased amlodipine to 5 mg in the morning but noticed blood pressure getting more elevated up to 150/80 in the mornings Patient denies chest pain or shortness for breath. Patient noticed decreased lower extremity swelling for the last few days. [facility] Medical History Osteoporosis Uterine prolapse Rectocele Hyperlipidemia Sinus bradycardia Atrial fibrillation Paroxysmal atrial fibrillation HTN (hypertension) Surgical History History of cholecystectomy Hx of tubal ligation Family History Father CVD (cardiovascular disease) Mother CVD (cardiovascular disease) Diabetes Other Substance use disorder Social History Household Members: Family Housing: House Do you presently have visiting nurse or other home services: No Alcohol intake: unknown Patient Tobacco Use Status: Former Tobacco user Years Smoked: 12 +/- e-Cigarette/Vaping Use: Never Used service: No Current occupational status: retired 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 Lior Francois, Dee Arango, Jhoan Coronel and colleagues, with an educational simone from [employer]. Review of Systems Const All systems reviewed & are unremarkable except as noted in HPI and below ENT Reports no additional complaints Card Reports no additional complaints Resp Reports no additional complaints GI Reports no additional complaints Reports no additional complaints Physical exam (Primary Care) Vital Signs: Last Vital Signs Pulse 59 03/10/24 09:36 BP 162/70 H 03/10/24 09:36 Pulse Ox 97 03/10/24 09:36 Oxygen Delivery Method Room Air 03/10/24 09:36 BMI result Body Mass Index 31.4 Tobacco/Smoking Status: Tobacco use Status Tobacco use date assessed 03/04/24 03/10/24 09:36 Patient Tobacco Use Status Former Tobacco user 03/10/24 09:36 Tobacco use type 11/27/22 09:43 e-Cigarette/Vaping Use Never Used 03/10/24 09:36 Thrive Assessment: Date of Thrive Assessment Date Thrive assessed 03/04/24 03/10/24 09:36 Const General: no acute distress HENMT Mouth: Normal oral and palatal mucosa present Neck Neck: Yes supple Resp Effort & Inspection: normal respiratory effort Auscultation: clear to auscultation bilaterally Cardio Rhythm: regular rhythm Heart sounds: S1 normal heart sound present and S2 normal heart sound present GI Palpation (GI): Soft to palpation Extrem Other: 2+ pitting edema bilaterally Assessment and Plan Assessment & Plan (1) Lower extremity edema: Code(s): R60.0 - Localized edema Plan: Patient will try taking 20 mg of furosemide daily. (2) HTN (hypertension): Code(s): I10 - Essential (primary) hypertension Plan: She will increase amlodipine to 7.5 mg, and continue losartan but 25 mg in the morning instead of 50 mg and continue 50 at night. She will follow-up in 3 weeks for blood pressure check Medications: New amlodipine take with Amlodipine 2.5 mg 5 mg PO DAILY 90 tabs 0RF amlodipine take with Amlodipine 5 mg QD 2.5 mg PO DAILY 90 tabs 0RF Coding Level of Care Code Est Pt Level 3 (47888) Diagnoses Lower extremity edema R60.0 HTN (hypertension) I10
== END 2024-03-10 10:18 | disposition home or self-care (01) ==
LOC: HO.HMGC 08:50
PROVIDERS: PCP Internal Medicine; Visit Provider Internal Medicine
DX: R60.0 Localized edema (principal); I10 Essential (primary) hypertension
CPT/HCPCS: 99213

== ENCOUNTER → 2024-03-31 08:11 | Outpatient (BNVA) | payer OTHER, SELFPAY | PROVIDERS: PCP Internal Medicine; Visit Provider Internal Medicine | DX: I48.0 Paroxysmal atrial fibrillation (principal); Z79.01 Long term (current) use of anticoagulants; Z51.81 Encounter for therapeutic drug level monitoring | CPT/HCPCS: 85610; 99211 ==

== ENCOUNTER 2024-04-18 10:18 | Outpatient (AMB) | payer OTHER, SELFPAY ==
[2024-04-18 10:32] VITALS: BP 130/76; PULSE 56; O2SAT 96; BMI 31.6
--- NOTE | 2024-04-18 10:32 | MHC.PC.OV ---
Vital Signs 04/18/24 10:32 Height 5 ft 1 in Weight 167 lb BMI 31.6 BP 130/76 Blood Pressure Location Lt brachial Position Sitting Pulse 56 Pulse Source Pulse Oximeter Pulse Oximetry (%) 96 Oxygen Delivery Method Room Air Intake Visit Reasons: 6 week f/u Intake Note: Pt is here today for 6 weeks follow up visit. Allergies codeine [CODEINE] Allergy (Intermediate, Verified 04/18/24 10:38) HEADACHES hydrochlorothiazide [HYDROCHLOROTHIAZIDE] Allergy (Intermediate, Verified 04/18/24 10:38) NAUSEA & VOMITING, low K latex [LATEX] Allergy (Intermediate, Verified 04/18/24 10:38) RASH lisinopril [LISINOPRIL] Adverse Reaction (Mild, Verified 04/18/24 10:38) COUGH Medication List - Last Reconciled 04/18/24 by Silvia Reynoso MD amlodipine 5 mg PO DAILY amlodipine 2.5 mg PO DAILY atorvastatin 40 mg PO DAILY cholecalciferol (vitamin D3) 25 mcg PO DAILY dronedarone (Multaq) 400 mg PO BID 90 days furosemide 40 mg (2 x 20 mg) PO DAILY losartan 100 mg (2 x 50 mg) PO DAILY metoprolol tartrate 25 mg (1/2 x 50 mg) PO BID nystatin (Nystop) 1 appl topical BID PRN simethicone (Gas Relief (simethicone)) 250 mg PO BID PRN triamcinolone acetonide 0.1% 1 appl topical BID warfarin 5 mg See Protocol PO DAILY Tobacco use date assessed: 04/18/24 Fall risk assessment: No Falls in past year Last assessed Fall Risk: 04/18/24 Dental Screening Dental Screen Date: 03/04/24 HPI 6 week f/u HPI Details Patient presents for the follow-up of hypertension and chronic lower extremity edema. She has been taking 20 mg of furosemide every day and 7.5 mg of amlodipine. Patient reports still some lower extremity swelling at the end of the day but overall improved. Patient has been having episodes of palpitations at least once a month lasting a few hours usually controlled with extra dose of metoprolol. Patient has been taking Multaq twice a day. Patient has an appointment with cardiology next month. [facility] Medical History Osteoporosis Uterine prolapse Rectocele Hyperlipidemia Sinus bradycardia Atrial fibrillation Paroxysmal atrial fibrillation HTN (hypertension) Surgical History History of cholecystectomy Hx of tubal ligation Family History Father CVD (cardiovascular disease) Mother CVD (cardiovascular disease) Diabetes Other Substance use disorder Social History Household Members: Family Housing: House Do you presently have visiting nurse or other home services: No Alcohol intake: unknown Patient Tobacco Use Status: Former Tobacco user Years Smoked: 12 +/- e-Cigarette/Vaping Use: Never Used service: No Current occupational status: retired 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 1. Little interest or pleasure in doing things: not at all 2. Feeling down, depressed, or hopeless: not at all 3. Trouble falling or staying asleep, or sleeping too much: several days 4. Feeling tired or having little energy: not at all 5. Poor appetite or overeating: not at all 6. Feeling bad about yourself - or that you are a failure or have let yourself or your family down: not at all 7. Trouble concentrating on things, such as reading the newspaper or watching television: not at all 8. Moving or speaking so slowly that other people could have noticed. Or the opposite - being so fidgety or restless that you have been moving around a lot more than usual: not at all 9. Thoughts that you would be better off or of hurting yourself in some way: not at all Total score: 1 Depression Screening Interpretation: Negative Depression Screening Done: Yes Source: Developed by Drs. Lior Francois, Dee Arango, Jhoan Coronel and colleagues, with an educational simone from [employer]. Thrive Questionnaire Date Thrive assessed: 04/18/24 I am a: Patient What is your living situation today?: I have a steady place to live Within the past 12 months, did the food you bought not last and you didn't have the money to get more?: Never true Within the past 12 months, did you worry whether your food would run out before you got money to buy more?: Never true Do you have trouble paying for medicines?: No Do you have trouble getting transportation to medical appointments?: No Do you have trouble paying your heating and electricity bill?: No Do you have trouble taking care of your child, family member or friend?: No Do you have trouble with day-to-day activities such as bathing, preparing meals, shopping, managing finances, etc.?: No Are you currently unemployed and looking for a job?: No Are you interested in more education?: No Please select the resources that you would like help with: Housing/Assisted Currently or been in a relationship where the following occur: No concerns reported THRIVE Score: 0 AUDIT C Alcohol Use Questionnaire (AUDIT-C) 1. How often do you have a drink containing alcohol?: Never Total Score: 0 RENETTA-7 AMB Questionnaire RENETTA-7 Date RENETTA - 7 assessed: 04/18/24 Feeling nervous, anxious, or on edge: 0 = Not at all Not being able to stop or control worryin = Not at all Worrying too much about different things: 0 = Not at all Trouble relaxin = Not at all Being so restless that it is hard to sit still: 0 = Not at all Becoming easily annoyed or irritable: 0 = Not at all Feeling afraid as if something awful might happen: 0 = Not at all Total RENETTA-7 score (0-4 normal; 5-9 mild; 10-14 moderate; 15-21 severe): 0 Source: Developed by Drs. Lior Francois, Dee Arango, Jhoan Coronel and colleagues, with an educational simone from [employer]. Review of Systems Const All systems reviewed & are unremarkable except as noted in HPI and below ENT Reports no additional complaints Card Reports no additional complaints Resp Reports no additional complaints GI Reports no additional complaints Reports no additional complaints Physical exam (Primary Care) Vital Signs: Last Vital Signs Pulse 56 04/18/24 10:32 BP 130/76 04/18/24 10:32 Pulse Ox 96 04/18/24 10:32 Oxygen Delivery Method Room Air 04/18/24 10:32 BMI result Body Mass Index 31.6 Tobacco/Smoking Status: Tobacco use Status Tobacco use date assessed 04/18/24 04/18/24 10:41 Patient Tobacco Use Status Former Tobacco user 04/18/24 10:32 Tobacco use type 11/27/22 09:43 e-Cigarette/Vaping Use Never Used 04/18/24 10:32 PHQ-9: PHQ-9 Score PHQ-9: Total score 1 04/18/24 10:41 Depression Screening Interpretation: Negative Thrive Assessment: Date of Thrive Assessment Date Thrive assessed 04/18/24 04/18/24 10:41 Currently or been in a relationship where the following occur: No concerns reported Const General: no acute distress HENMT Head: Yes normal to inspection Face and sinus: Yes normal facial exam Eyes General: appearance normal, both eyes and all related structures Neck Neck: Yes supple Resp Effort & Inspection: normal respiratory effort Auscultation: clear to auscultation bilaterally Cardio Rhythm: regular rhythm Heart sounds: S1 normal heart sound present and S2 normal heart sound present Extrem Other: 1+ pitting edema bilaterally Assessment and Plan Assessment & Plan (1) HTN (hypertension): Code(s): I10 - Essential (primary) hypertension Plan: Continue 7.5 mg of amlodipine. Patient was advised to increase losartan to 50 mg twice a day and continue furosemide, check comprehensive panel today (2) Paroxysmal atrial fibrillation: Comment: Rhythm controlled on amiodarone, anticoagulated on warfarin follows up with Cardiology Code(s): I48.0 - Paroxysmal atrial fibrillation Plan: Continue current medications and follow-up with Cardiology (3) Hyperglycemia: Code(s): R73.9 - Hyperglycemia, unspecified Plan: ADA diet increase physical activity weight loss discussed with the patient check A1c today (4) Hyperlipidemia: Code(s): E78.5 - Hyperlipidemia, unspecified Plan: Continue statin Orders: Orders Comprehensive Met. Panel Today I10 - Essential (primary) hypertension, I48.0 - Paroxysmal atrial fibrillation, R73.9 - Hyperglycemia, unspecified Magnesium Today I10 - Essential (primary) hypertension, I48.0 - Paroxysmal atrial fibrillation, R73.9 - Hyperglycemia, unspecified Hemoglobin A1c Today I10 - Essential (primary) hypertension, I48.0 - Paroxysmal atrial fibrillation, R73.9 - Hyperglycemia, unspecified Coding Level of Care Code Est Pt Level 4 (56009) Diagnoses HTN (hypertension) I10 Paroxysmal atrial fibrillation I48.0 Hyperglycemia R73.9 Hyperlipidemia E78.5
== END 2024-04-18 11:17 | disposition home or self-care (01) ==
PROVIDERS: PCP Internal Medicine; Visit Provider Internal Medicine
DX: I10 Essential (primary) hypertension (principal); I48.0 Paroxysmal atrial fibrillation; R73.9 Hyperglycemia, unspecified; E78.5 Hyperlipidemia, unspecified
CPT/HCPCS: 99214

== ENCOUNTER 2024-04-18 11:18 | Outpatient (REF) | payer OTHER, SELFPAY ==
[2024-04-18 13:36] LABS: Estimated Average Glucose 111 mg/dL; Hemoglobin A1c % 5.5 % (<6.0)
[2024-04-18 13:57] LABS: Alanine Aminotransferase 15 U/L (0-31); Albumin Level 4.2 g/dL (3.5-5.0); Alkaline Phosphatase 97 U/L (39-117); Anion Gap 11 (12-20); Aspartate Amino Transferase 18 U/L (5-31); Bilirubin Total 1.2 mg/dL (0.0-1.0); Blood Urea Nitrogen 18 mg/dL (9-16); Calcium 8.9 mg/dL (8.4-10.2); Carbon Dioxide 25 mmol/L (22-29); Chloride 109 mmol/L (96-108); Estimated Glomerular Filt Rate > 60; Glucose Random 104 mg/dL (60-115); Magnesium 2.4 mg/dL (1.6-2.6); Potassium 4.2 mmol/L (3.3-5.1); Sodium 141 mmol/L (135-145); Total Protein 6.8 g/dL (6.5-8.0)
== END 2024-04-18 11:19 | disposition home or self-care (01) ==
LOC: HO.HMGCLDS 11:18
PROVIDERS: PCP Internal Medicine; Visit Provider Internal Medicine
DX: R73.9 Hyperglycemia, unspecified (principal); I48.0 Paroxysmal atrial fibrillation; I10 Essential (primary) hypertension
CPT/HCPCS: 36415; 80053; 83036; 83735

== ENCOUNTER 2024-04-29 08:07 | Outpatient (AMB) | payer MEDICARE, SELFPAY ==
[2024-04-29 08:20] LABS: Prothrombin Time Whole Bld POC 28.5 sec (11.1-13.5); ~PT, ~INR - Anti Coag Clinic 2.4 (0.9-1.1)
--- NOTE | 2024-04-29 08:21 | MHC.OFFVISCO ---
Intake Intake Visit Reasons: Anticoagulation Allergies codeine [CODEINE] Allergy (Intermediate, Verified 04/29/24 08:09) HEADACHES hydrochlorothiazide [HYDROCHLOROTHIAZIDE] Allergy (Intermediate, Verified 04/29/24 08:09) NAUSEA & VOMITING, low K latex [LATEX] Allergy (Intermediate, Verified 04/29/24 08:09) RASH lisinopril [LISINOPRIL] Adverse Reaction (Mild, Verified 04/29/24 08:09) COUGH Medication List - Last Reconciled 04/29/24 by Flavia Durand RN amlodipine 5 mg PO DAILY amlodipine 2.5 mg PO DAILY atorvastatin 40 mg PO DAILY cholecalciferol (vitamin D3) 25 mcg PO DAILY dronedarone (Multaq) 400 mg PO BID 90 days furosemide 40 mg (2 x 20 mg) PO DAILY losartan 100 mg (2 x 50 mg) PO DAILY metoprolol tartrate 25 mg (1/2 x 50 mg) PO BID nystatin (Nystop) 1 appl topical BID PRN simethicone (Gas Relief (simethicone)) 250 mg PO BID PRN triamcinolone acetonide 0.1% 1 appl topical BID warfarin 5 mg See Protocol PO DAILY Nursing Note INR: 2.4 in therapeutic range of 2-3 Medications and supplements reviewed No changes in health, diet, medications, or supplements, Denies any signs and symptoms of bleeding or bruising or clotting. Bleeding, bruising, clotting discussed Nutritional guidance given to continue to balance greens and reds Dose: 2.5mg daily F/U INR: 4 weeks Patient verbalizes understanding of instructions given Anti-Coag Initial Assessment Social Hx Patient Tobacco Use Status: Former Tobacco user alcohol intake: unknown Alcohol intake frequency: holidays/special occasions only Cardiovascular Hx: HTN, Arrhythmias and Other Musculoskeletal Hx: Arthritis Blood Disorder Hx: Hyperlipidemia GI Hx: Bleeding (GI, rectal) and Hemorrhoids Cancer HX: No Psych. 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
== END 2024-04-29 08:23 | disposition home or self-care (01) ==
PROVIDERS: PCP Internal Medicine; Visit Provider Internal Medicine
DX: Z79.01 Long term (current) use of anticoagulants (principal)

== ENCOUNTER 2024-04-29 09:10 | Outpatient (REF) | payer MEDICARE, SELFPAY ==
--- NOTE | ~2024-04-29 | MM_ITS ---
EXAMINATION: MM SCREENING DIGITAL BREAST TOMOSYNTHESIS, BILATERAL CLINICAL INFORMATION: Screening. Asymptomatic. COMPARISON: Mammography: This study is compared with prior exams dating back to 2019. TECHNIQUE: Digital breast tomosynthesis is performed in both the craniocaudal and mediolateral oblique views along with computer-aided detection (CAD). Synthesized 2D images are generated from the tomosynthesis. FINDINGS: There are scattered areas of fibroglandular density (ACR BI-RADS breast composition Category b). There are no significant masses, abnormal calcifications, or other abnormalities. Since the prior study, the cardiac loop recorder in the left breast is been removed. MM/MM tomosynthesis screening BI IMPRESSION: No mammographic evidence of malignancy. ASSESSMENT: BI-RADS BI-RADS 1 - Negative RECOMMENDATION: Routine annual mammography screening. 1 year F/U This examination should not preclude the clinical evaluation of a suspicious palpable abnormality. This patient's information was entered into a reminder system with a target due date for their next mammogram.
== END 2024-04-29 09:11 | disposition home or self-care (01) ==
LOC: HO.MAMMO 09:10
PROVIDERS: PCP Internal Medicine; Visit Provider Internal Medicine
DX: Z12.31 Encounter for screening mammogram for malignant neoplasm of breast (principal)
CPT/HCPCS: 77063; 77067; 85610; 99211

== ENCOUNTER → 2024-04-29 09:30 | Outpatient (BNV) | payer MEDICARE, SELFPAY | PROVIDERS: PCP Internal Medicine; Visit Provider Radiology Diagnostic Radiology | DX: Z12.31 Encounter for screening mammogram for malignant neoplasm of breast (principal) | CPT/HCPCS: 77063; 77067 ==

== ENCOUNTER 2024-05-07 07:16 | Inpatient (IN) | payer MEDICARE, OTHER, SELFPAY ==
[2024-05-07] VITALS (11 sets, daily range): BP systolic 127–177; BP diastolic 54–77; PULSE 72–89; RESP 14–21; TEMP 36.3–39.3; O2SAT 93–97; BMI 31.1; BMI 32.4
--- NOTE | ~2024-05-07 | CT_ITS ---
EXAMINATION: CT ABDOMEN AND PELVIS WITHOUT CONTRAST CLINICAL INFORMATION: Right back pain. Right lower quadrant pain. Nausea and fever. COMPARISON: The scan of the abdomen and pelvis dated 01/25/2021. TECHNIQUE: Multidetector volumetric imaging was performed from the superior aspect of the liver through the pubic symphysis. Sagittal and coronal reformatted images were obtained on the technologist workstation. This CT examination was performed using dose optimization techniques as appropriate, variously including the following: *Automated exposure control *Adjustment of mA and/or kV according to patient size (this includes techniques or standardized protocols for targeted exams where dose is matched to indication/reason for exam; i.e. extremities or head) *Use of iterative reconstruction technique DLP: 567 mGy-cm. FINDINGS: LUNG BASES: Moderate size retrocardiac hiatal hernia seen. Mild linear atelectasis in the lingula noted. Coronary artery calcifications partially seen. LIVER, GALLBLADDER, AND BILIARY TREE: The liver is normal in size, shape, and attenuation. No focal hepatic lesion on noncontrast imaging. No biliary ductal dilatation is present. The gallbladder is surgically absent. PANCREAS: Unremarkable on noncontrast imaging. SPLEEN: Unremarkable. ADRENAL GLANDS: Unremarkable on noncontrast imaging. KIDNEYS AND URETERS: The kidneys are normal in size, shape, and attenuation. No hydronephrosis, hydroureter, or calculi seen. Several faint calcifications are seen along the mid right ureter, similar to the previous exam and consistent with vascular calcifications. No perinephric stranding. There is a 1.3 x 0.9 cm hypodense partially exophytic mid left renal mass with mean attenuation values of 41 Hounsfield units, incompletely characterized. On prior contrast-enhanced CT scans back to 04/03/2020, a corresponding 1.1 cm diameter mid left renal mass was seen with mean attenuation values of 22 Hounsfield units. While this finding is not fully characterized, given the relative long-term stability, a hemorrhagic or proteinaceous cyst is favored. BLADDER: Unremarkable. PELVIC VISCERA: Multiple calcified uterine fibroids are noted. No suspicious adnexal mass. No significant free fluid.. GASTROINTESTINAL TRACT: The small and large bowel are decompressed. A few scattered sigmoid colonic diverticula are seen with no evidence of acute diverticulitis. The fluid-filled appendix is unremarkable. There is pelvic floor laxity seen with inferior displacement of the rectum. ABDOMINAL WALL: No significant hernia is appreciated. LYMPH NODES, VASCULAR: Abdominal aorta normal in caliber with moderate to severe atherosclerotic calcification seen, which also involve several of the branch vessels. No periaortic collections. No significant abdominal or pelvic adenopathy or free fluid collection. OSSEOUS STRUCTURES: Grade 1 anterolisthesis of L4 on L5 seen. Moderate degenerative disc disease at L5-S1. Multilevel vertebral spondylosis. CT/CT abdomen pelvis wo IV con IMPRESSION: 1. No acute intra-abdominal or pelvic findings seen to explain the patient's right back pain. 2. Mild sigmoid colonic diverticulosis with no evidence of acute diverticulitis. 3. Incompletely characterized mid left renal mass, favored to represent a hemorrhagic or proteinaceous cyst, given the relative stability since 01/25/2021. Close clinical correlation is requested. Consider renal ultrasound correlation. 4. Moderate size retrocardiac hiatal hernia. 5. Moderate to severe atherosclerotic vascular calcifications. 6. Status post cholecystectomy with no evidence of biliary obstruction. 7. Multiple calcified uterine fibroids.
--- NOTE | ~2024-05-07 | XR_ITS ---
EXAMINATION: XR CHEST CLINICAL INFORMATION: Reason for Exam fever COMPARISON: Chest radiograph 10/09/2023 TECHNIQUE: 2 views of the chest FINDINGS: Lines and tubes: Right upper quadrant cholecystectomy clips. Clear lungs. No pleural effusion. No pneumothorax. Unchanged cardiomediastinal silhouette. XR/XR chest 2V IMPRESSION: * Clear lungs.
--- NOTE | ~2024-05-07 | US_ITS ---
EXAMINATION: US RETROPERITONEAL LIMITED (RENAL ONLY) CLINICAL INFORMATION: Renal mass, elevated white blood count and right flank pain. COMPARISON: CT abdomen and pelvis 05/07/2024 TECHNIQUE: Routine grayscale imaging of kidneys was performed. FINDINGS: RIGHT KIDNEY: 12.2 x 4.4 x 6.0 cm (SAG x AP x TRV). The kidney is normal in size, contour, and echogenicity. Renal cortical thickness is normal. No calculi or focal parenchymal lesions. No hydronephrosis. LEFT KIDNEY: 10.3 x 5.1 x 6.1 cm (SAG x AP x TRV). The kidney is normal in size, contour, and echogenicity. Renal cortical thickness is normal. There is an echogenic lesion midpole cortex left kidney measuring 1.2 x 1.2 x 1.3 cm. Question hemorrhagic versus complex cyst. AML is considered less likely US/US renal BI IMPRESSION: Proteinaceous or hemorrhagic cyst midpole cortical lesion left kidney.. It is slightly hyperdense to kidney cortex on CT 05/07/2024. Less likely PML. No echogenic stones or hydronephrosis. Left kidney is slightly smaller compared to right side..
--- NOTE | ~2024-05-07 | US_ITS ---
EXAMINATION: US VENOUS ULTRASOUND WITH DOPPLER LOWER EXTREMITY, RIGHT CLINICAL INFORMATION: Swelling and pain. COMPARISON: None available. TECHNIQUE: Ultrasound of the deep veins is performed from the hip to the calf with compression sonography and color and pulse Doppler assessment. Spectral analysis with color-flow imaging is performed. FINDINGS: There is normal venous compression and respiratory variation and augmented flow. The visualized common femoral vein, superficial femoral vein, profunda femoral vein, and popliteal vein show no evidence of deep venous thrombosis. Right peroneal veins were not visualized. Incidental note of a 4.1 x 1.4 x 2.2 cm lymph node in the right inguinal region. This lymph node demonstrates an echogenic hilum with prominent cortex. There is no significant popliteal fossa cyst. If the patient's symptoms persist, followup ultrasound in 5 days 7 days might be of value to exclude proximal propagation from a non-visualized calf vein. US/US venous duplex LE RT IMPRESSION: 1. No evidence of right lower extremity deep venous thrombosis. Right peroneal veins were not visualized. 2. Incidental note of a 4.1 x 1.4 x 2.2 cm lymph node in the right inguinal region. This lymph node demonstrates an echogenic hilum with prominent cortex. This study was presented today May 09, 2024 for interpretation. Stat results provided at this time as requested by referring provider.
--- NOTE | 2024-05-07 07:45 | ED_ITS ---
HPI - General Adult General Chief complaint: General Medical Stated complaint: lower back and abd pain chills nausea Time Seen by Provider: 05/07/24 07:31 Source: patient, RN notes reviewed and old records reviewed Mode of arrival: ambulatory History of Present Illness ED Provider: Mell Christian PA-C HPI narrative: 83 year old female with a PMH of hypertension and Paroxysmal Afib presents to the ED with complaints of non-radiating right lower back, RLQ abdominal pain, hot urine, fever (Tmax 103) & nausea x last night while watching TV. States pain is worsening. Took Tylenol with some relief. Denies recent injury, trauma/fall or heavy lifting. Denies any urgency or frequency, dysuria, incontinence, history of kidney stones, chest pain, abdominal pain. Patient endorses shortness of breath acute on chronically with LE edema which she takes furosemide for. Onset (ago): hour(s) (8) Location: back and pelvis (Lower genital area) Radiation: non-radiation Severity: moderate Severity scale (1-10): 7 Quality: sharp Pain Consistency: intermittent Treatments prior to arrival: other (Tylenol ) Related Data Home Medications ?Medication ?Instructions ?Recorded ?Confirmed cholecalciferol (vitamin D3) 25 25 mcg PO BEDTIME 09/17/20 05/07/24 mcg (1,000 unit) capsule furosemide 20 mg tablet 20 mg PO DAILY edema 05/07/24 05/07/24 losartan 50 mg tablet 50 mg PO BID 05/07/24 05/07/24 triamcinolone acetonide 0.1 % 1 appl topical BID PRN Rash 05/07/24 05/07/24 topical cream warfarin 5 mg tablet 2.5 mg PO BEDTIME 05/07/24 05/07/24 Previous Rx's ?Medication ?Instructions ?Recorded atorvastatin 40 mg tablet 40 mg PO DAILY #100 tabs 06/24/23 nystatin 100,000 unit/gram topical 1 appl topical BID PRN rash #30 12/27/23 powder (Nystop) grams metoprolol tartrate 50 mg tablet 25 mg (1/2 x 50 mg) PO BID #90 tabs 02/15/24 amlodipine 2.5 mg tablet 2.5 mg PO DAILY #90 tabs 03/10/24 amlodipine 5 mg tablet 5 mg PO DAILY #90 tabs 03/10/24 dronedarone 400 mg tablet (Multaq) 400 mg PO BID 90 days #180 tabs 04/06/24 Allergies Allergy/AdvReac Type Severity Reaction Status Date / Time codeine [CODEINE] Allergy Intermediate HEADACHES Verified 05/07/24 07:24 hydrochlorothiazide Allergy Intermediate NAUSEA & Verified 05/07/24 07:24 [HYDROCHLOROTHIAZIDE] VOMITING, low K latex [LATEX] Allergy Intermediate RASH Verified 05/07/24 07:24 lisinopril [LISINOPRIL] AdvReac Mild COUGH Verified 05/07/24 07:24 Review of Systems 2 Review of Systems: Constitutional: + Fever, No Chills ENT/Mouth: No Ear Pain, No Nasal Congestion, No sore throat, No Rhinorrhea, No Swallowing Difficulty Cardiovascular: No Chest Pain, No SOB Respiratory: No Cough, No Sputum, No Wheezing Gastrointestinal: + Nausea, No Vomiting, No Diarrhea, No Constipation, +Abdominal pain Genitourinary: + Dysuria, No Urinary Frequency, No Hematuria, No Urinary Incontinence/retention, No Urgency, + Flank Pain Musculoskeletal: No joint pain, No Myalgias, No Joint Swelling Skin: No Skin Lesions, No rash Neuro: No Weakness, No Numbness, No Paresthesias Yes all other systems are reviewed and are negative Constitutional: Constitutional: Reports as per [facility] Past Medical History Attestation statement: The following information was validated with the patient. Source: old records reviewed Medical History Osteoporosis Uterine prolapse Rectocele Hyperlipidemia Sinus bradycardia Atrial fibrillation Paroxysmal atrial fibrillation HTN (hypertension) Surgical History History of cholecystectomy Hx of tubal ligation Family History Family History Father CVD (cardiovascular disease) Mother CVD (cardiovascular disease) Diabetes Other Substance use disorder Social History Social History Household Members: Family Housing: House Do you presently have visiting nurse or other home services: No Alcohol intake: unknown Patient Tobacco Use Status: Former Tobacco user Years Smoked: 12 +/- Smoked in Last 30 Days: No e-Cigarette/Vaping Use: Never Used Use of substances other than those prescribed or required for medical reasons: No Advance Directives: No Advance Directives Information Provided: Yes Do you have a plan to hurt others: No Plan service: No Current occupational status: retired 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 Current occupational exposures/hazards: No Cognitive needs: No Hearing needs: No Vision needs: Yes Physical Exam ED Vital Signs: Vital Signs - 24 hr 05/07/24 07:19 05/07/24 07:39 05/07/24 09:43 Temperature 98.7 F 99.0 F 98.7 F Pulse Rate 75 78 72 Respiratory Rate 18 16 16 Blood Pressure 136/59 L 146/56 H 132/76 Pulse Oximetry 97 96 95 Oxygen Delivery Method Room Air Room Air Room Air 05/07/24 10:39 05/07/24 11:53 Temperature Pulse Rate 76 88 Respiratory Rate 17 14 Blood Pressure 150/62 H 177/64 H Pulse Oximetry 94 93 Oxygen Delivery Method Room Air Room Air BMI result Body Mass Index 31.1 Const General: cooperative, healthy appearing and no acute distress Orientation/consciousness: patient oriented x3 Limitations: no limitations HENMT Head: Yes normal to inspection and Yes atraumatic Ears: hearing grossly normal bilaterally General nose exam: Normal external nose present Face and sinus: Yes normal facial exam Mouth: Normal oral and palatal mucosa present Throat: Yes posterior oropharynx normal Eyes General: appearance normal, both eyes and all related structures EOM: EOMs intact bilaterally Neck Neck: Yes normal visual inspection and Yes no meningeal signs Chest Chest palpation & inspection: normal inspection of the chest Resp Effort & Inspection: normal respiratory effort and no respiratory distress Auscultation: clear to auscultation bilaterally Cardio Rate: regular rate Heart sounds: S1 normal heart sound present and S2 normal heart sound present Peripheral pulses: Peripheral pulses 2+ throughout GI Inspection: Yes normal to inspection Palpation (GI): Soft to palpation, Tenderness to palpation present (GI) in the RLQ and in the RUQ; with no rebound tenderness, no guarding and not rigid General: Yes CVA tenderness on the right Back/Spine/Pelvis Other: No midline cervical/thoracic/lumbar spinous tenderness/step-off or deformity Back: CVA tenderness Skin Rashes: no rashes Wounds: no wounds Neuro General: patient oriented x3, tone normal, moves all extremities and no meningeal signs Cranial nerves: Yes CN's II-XII intact bilaterally Gait exam (Neuro): Normal gait present Extrem Other: +b/l LE edema Course Course Course Narrative: -0900--leukocytosis of 26.3 with 13% bands. Chronically elevated total bilirubin > will obtain lactic/blood cultures and give empiric IV cefepime -UA infected and with RBC/blood XR chest 2V IMPRESSION: * Clear lungs. CT abdomen pelvis wo IV con IMPRESSION: 1. No acute intra-abdominal or pelvic findings seen to explain the patient's right back pain. 2. Mild sigmoid colonic diverticulosis with no evidence of acute diverticulitis. 3. Incompletely characterized mid left renal mass, favored to represent a hemorrhagic or proteinaceous cyst, given the relative stability since 01/25/2021. Close clinical correlation is requested. Consider renal ultrasound correlation. 4. Moderate size retrocardiac hiatal hernia. 5. Moderate to severe atherosclerotic vascular calcifications. 6. Status post cholecystectomy with no evidence of biliary obstruction. 7. Multiple calcified uterine fibroids. > will obtain renal ultrasound and plan for admission Medications Administered Generic Name Dose Route Start Last Admin Trade Name Freq PRN Reason Stop Dose Admin Acetaminophen 650 mg 05/07/24 12:45 05/07/24 14:08 Acetaminophen 325 Mg Tablet PO 650 mg Q6H PRN Administration Pain, Mild (Pain Scale 1-3), fever or headache Metronidazole 500 mg in 100 mls @ 100 mls/hr 05/07/24 12:45 05/07/24 15:21 Flagyl IV Infused Q12H WILDER Infusion Sodium Chloride 3 ml 05/07/24 16:00 05/07/24 15:47 0.9 % Sodium Chloride Flush 3 Ml Syringe IVFLUSH Not Given QSHIFT WILDER Discontinued Medications Generic Name Dose Route Start Last Admin Trade Name Freq PRN Reason Stop Dose Admin Sodium Chloride 1,000 mls @ 999 mls/hr 05/07/24 08:00 05/07/24 10:16 Ns IV 05/07/24 09:00 Infused .Q1H1M WILDER Infusion Cefepime HCl 2 gm/ Sodium 50 mls @ 100 mls/hr 05/07/24 09:00 05/07/24 10:16 Chloride IV 05/07/24 09:29 Infused ONCE ONE Infusion Sodium Chloride 1,000 mls @ 999 mls/hr 05/07/24 09:15 05/07/24 11:08 Ns IV 05/07/24 10:15 Infused .Q1H1M WILDER Infusion Sodium Chloride 1,000 mls @ 999 mls/hr 05/07/24 10:15 05/07/24 11:46 Ns IV 05/07/24 11:15 Infused .Q1H1M WILDER Infusion Sodium Chloride 500 mls @ 999 mls/hr 05/07/24 10:15 05/07/24 11:17 Ns IV 05/07/24 10:45 Infused .Q31M WILDER Infusion Ketorolac Tromethamine 15 mg 05/07/24 07:55 05/07/24 08:50 Ketorolac Tromethamine 15 Mg/Ml Vial IVPUSH 05/07/24 07:56 15 mg ONCE ONE Administration Ondansetron HCl 4 mg 05/07/24 07:55 05/07/24 08:50 Ondansetron Hcl 4 Mg/2 Ml Vial IVPUSH 05/07/24 07:56 4 mg ONCE ONE Administration Medical Decision Making Medical Decision Making [facility] Narrative: 83 year old female with a PMH of hypertension and Paroxysmal Afib presents to the ED with complaints of non-radiating right lower back, RLQ abdominal pain, hot urine, fever (Tmax 103) & nausea x last night while watching TV. On exam afebrile, appears uncomfortable, abdomen soft with RUQ and RLQ tenderness, no rebound or guarding, mild right CVAT. Bilateral LE pitting edema noted. Concern for renal stone vs pyelo vs appendicitis vs UTI. Cholecystitis/lithiasis on differential however lower. Unlikely pancreatitis, diverticulitis, TOA. Rule out CHF vs pneumonia. Unlikely ACS Plan: EKG, labs, UA, CT AP, CXR, re-evaluate Low suspicion for severe sepsis at this time Please refer to course for remaining clinical decision making, interpretation of labs/imaging results, and discussions with consultants and/or family members. Differential Diagnosis Differential Diagnoses: The differential diagnosis associated with the presentation includes As above Admission/Observation Consideration of admission/observation: Escalation of care including admission/observation considered Consult Healthcare Provider Management of the patient was discussed with: Hospitalist Lab Data [facility] Lab Attestation statement: I reviewed the patient's lab results. 05/07/24 07:46 05/07/24 07:46 Labs: Lab Results 05/07/24 05/07/24 05/07/24 Range/Units 07:35 07:46 09:34 WBC 26.3 H (4.8-10.8) X10*3/uL RBC 4.83 (4.20-5.50) X10*6/uL Hgb 14.9 (12.0-16.0) g/dl Hct 41.9 (37.0-47.0) % MCV 86.7 (80.0-98.0) fL MCH 30.8 (27.0-33.0) pg MCHC 35.6 H (31.0-35.0) g/dl RDW 13.1 (11.0-16.0) % Plt Count 184 (160-400) X10*3/uL MPV 10.4 (9.4-12.3) fL Immature Gran % (Auto) Cancelled Neut % (Auto) Cancelled Lymph % (Auto) Cancelled [place] % (Auto) Cancelled Eos % (Auto) Cancelled Baso % (Auto) Cancelled Lymph # (Auto) Cancelled [place] # (Auto) Cancelled Eos # (Auto) Cancelled Baso # (Auto) Cancelled Abs Immat Gran (auto) Cancelled Absolute Neuts (auto) Cancelled Absolute Nucleated RBC 0.000 (0.0-0.012) X10*3/uL Nucleated RBC % (auto) 0.0 (0.0-0.2) /100WBC Neutrophils % (Manual) 74 H (45-73) % Band Neutrophils % 13 H (3-5) % Lymphocytes % (Manual) 10 L (20-40) % Monocytes % (Manual) 3 (2-11) % Abs Neuts (Manual) 22.9 H (2.0-8.3) X10*3/uL Lymphocytes # (Manual) 2.6 (1.2-4.9) X10*3/uL Monocytes # (Manual) 0.8 (0.1-1.2) X10*3/uL Platelet Estimate NORMAL (NORMAL) Plt Morphology Comment NORMAL RBC Morphology NORMAL Smear Tech's Comments MANUAL DIFF Sodium 135 (135-145) mmol/L Potassium 4.0 (3.3-5.1) mmol/L Chloride 103 (96-108) mmol/L Carbon Dioxide 22 (22-29) mmol/L Anion Gap 14 (12-20) BUN 21 H (9-16) mg/dL Creatinine 0.99 (0.5-1.4) mg/dL Estim Creat Clear Calc 40.1 Estimated GFR 54 Random Glucose 158 H (60-115) mg/dL Lactic Acid 2.7 H* (0.5-2.0) mmol/L Lactic Acid F/U @ 2Hr (0.5-2.0) mmol/L Calcium 9.9 D (8.4-10.2) mg/dL Magnesium 2.0 (1.6-2.6) mg/dL Total Bilirubin 2.0 H (0.0-1.0) mg/dL AST 15 (5-31) U/L ALT 14 (0-31) U/L Alkaline Phosphatase 95 (39-117) U/L B-Natriuretic Peptide 144 H (<100) pg/mL Total Protein 7.2 (6.5-8.0) g/dL Albumin 4.3 (3.5-5.0) g/dL Lipase 19 (8-78) U/L Urine Color Yellow Urine Appearance Clear Urine pH 6.5 (5.0-9.0) Ur Specific [place] 1.020 (1.005-1.025) Urine Protein Negative (Neg-Trace) mg/dL Urine Glucose (UA) Negative (Negative) mg/dL Urine Ketones Negative (Negative) mg/dL Urine Blood Trace H (Negative) Urine Nitrite Negative (Negative) Ur Leukocyte Esterase Small (1+) H (Negative) Urine RBC 6-10 H (0-2) /HPF Urine WBC 6-10 H (0-5) /HPF Ur Squamous Epith Cells 3-5 (0-2) /HPF Urine Bacteria None Seen (None Seen) Hyaline Casts 0-2 (0-2) /LPF Influenza Type A (PCR) NEGATIVE (Negative) Influenza Type B (PCR) NEGATIVE (Negative) RSV RNA Qual (PCR) NEGATIVE (Negative) SARS-CoV-2 RNA (RT-PCR) NEGATIVE (Negative) 05/07/24 Range/Units 11:50 WBC (4.8-10.8) X10*3/uL RBC (4.20-5.50) X10*6/uL Hgb (12.0-16.0) g/dl Hct (37.0-47.0) % MCV (80.0-98.0) fL MCH (27.0-33.0) pg MCHC (31.0-35.0) g/dl RDW (11.0-16.0) % Plt Count (160-400) X10*3/uL MPV (9.4-12.3) fL Immature Gran % (Auto) Neut % (Auto) Lymph % (Auto) [place] % (Auto) Eos % (Auto) Baso % (Auto) Lymph # (Auto) [place] # (Auto) Eos # (Auto) Baso # (Auto) Abs Immat Gran (auto) Absolute Neuts (auto) Absolute Nucleated RBC (0.0-0.012) X10*3/uL Nucleated RBC % (auto) (0.0-0.2) /100WBC Neutrophils % (Manual) (45-73) % Band Neutrophils % (3-5) % Lymphocytes % (Manual) (20-40) % Monocytes % (Manual) (2-11) % Abs Neuts (Manual) (2.0-8.3) X10*3/uL Lymphocytes # (Manual) (1.2-4.9) X10*3/uL Monocytes # (Manual) (0.1-1.2) X10*3/uL Platelet Estimate (NORMAL) Plt Morphology Comment RBC Morphology Smear Tech's Comments Sodium (135-145) mmol/L Potassium (3.3-5.1) mmol/L Chloride (96-108) mmol/L Carbon Dioxide (22-29) mmol/L Anion Gap (12-20) BUN (9-16) mg/dL Creatinine (0.5-1.4) mg/dL Estim Creat Clear Calc Estimated GFR Random Glucose (60-115) mg/dL Lactic Acid (0.5-2.0) mmol/L Lactic Acid F/U @ 2Hr 2.9 H* (0.5-2.0) mmol/L Calcium (8.4-10.2) mg/dL Magnesium (1.6-2.6) mg/dL Total Bilirubin (0.0-1.0) mg/dL AST (5-31) U/L ALT (0-31) U/L Alkaline Phosphatase (39-117) U/L B-Natriuretic Peptide (<100) pg/mL Total Protein (6.5-8.0) g/dL Albumin (3.5-5.0) g/dL Lipase (8-78) U/L Urine Color Urine Appearance Urine pH (5.0-9.0) Ur Specific [place] (1.005-1.025) Urine Protein (Neg-Trace) mg/dL Urine Glucose (UA) (Negative) mg/dL Urine Ketones (Negative) mg/dL Urine Blood (Negative) Urine Nitrite (Negative) Ur Leukocyte Esterase (Negative) Urine RBC (0-2) /HPF Urine WBC (0-5) /HPF Ur Squamous Epith Cells (0-2) /HPF Urine Bacteria (None Seen) Hyaline Casts (0-2) /LPF Influenza Type A (PCR) (Negative) Influenza Type B (PCR) (Negative) RSV RNA Qual (PCR) (Negative) SARS-CoV-2 RNA (RT-PCR) (Negative) Independent Interpretation I performed an independent interpretation of an: EKG, Plain X-Ray and CT Scan Radiology Impression Discussion of test interpretation with radiology: I have reviewed the radiologist's reading. External Record Review External record reviewed: Inpatient record, Office record, Outpatient record, Prior outpatient labs, Prior outpatient radiology, Primary care record and Outside ED record Tests considered The following testing was considered but not selected: As above Prescription Management I considered prescription management with: Pain Medication and Antibiotic Critical Care Time Critical Care Time Critical Care Time: Yes Total Critical Care Time: 45 Attestation: I have personally provided critical care time exclusive of time spent on separately billable procedures. Time includes review of lab data, radiology results, discussion with consultants, and monitoring for potential decompensation. Intervention performed as documented. Discharge Plan Discharge Clinical Impression: Acute UTI Patient Disposition: Admitted As Inpatient
[2024-05-07 07:46] LABS: Appearance Urine Clear; Color Urine Yellow; Glucose Urine UA Negative (Negative); Leukocyte Esterase Urine Small (1+) (Negative); Nitrite Urine Negative (Negative); PH 6.5 (5.0-9.0); UMIC TRIGGER UACC YES; Urine Blood Trace (Negative); Urine Ketones Negative (Negative); Urine Protein Negative (Neg-Trace)
[2024-05-07 08:03] LABS: Bacteria Urine None Seen (None Seen); Hyaline Casts Urine 0-2 /LPF (0-2); UACC Culture Trigger YES
[2024-05-07 08:05] LABS: Hematocrit 41.9 % (37.0-47.0); Hemoglobin 14.9 g/dl (12.0-16.0); Mean Corpuscular HGB Conc 35.6 g/dl (31.0-35.0); Mean Corpuscular Hemoglobin 30.8 pg (27.0-33.0); Mean Corpuscular Volume 86.7 fL (80.0-98.0); Mean Platelet Volume 10.4 fL (9.4-12.3); Platelet Count 184 X10*3/uL (160-400); Red Blood Count 4.83 X10*6/uL (4.20-5.50); Red Cell Distribution Width 13.1 % (11.0-16.0); White Blood Count 26.3 X10*3/uL (4.8-10.8)
[2024-05-07 08:13] LABS: Anion Gap 14 (12-20)
[2024-05-07 08:17] LABS: Alanine Aminotransferase 14 U/L (0-31); Albumin Level 4.3 g/dL (3.5-5.0); Alkaline Phosphatase 95 U/L (39-117); Aspartate Amino Transferase 15 U/L (5-31); Blood Urea Nitrogen 21 mg/dL (9-16); Calcium 9.9 mg/dL (8.4-10.2); Carbon Dioxide 22 mmol/L (22-29); Chloride 103 mmol/L (96-108); Creatinine Clr Calc Pharmacy 40.1; Estimated Glomerular Filt Rate 54; Glucose Random 158 mg/dL (60-115); Lipase 19 U/L (8-78); Sodium 135 mmol/L (135-145); Total Protein 7.2 g/dL (6.5-8.0)
[2024-05-07 08:32] LABS: SLIDE REVIEW MANUAL DIFF
[2024-05-07 08:35] LABS: Neutrophils Percent Manual 74 % (45-73)
[2024-05-07 08:40] LABS: Influenza A PCR NEGATIVE (Negative); Influenza B PCR NEGATIVE (Negative); Resp Syncy Virus RNA Qual PCR NEGATIVE (Negative); SARS COV2 PCR INHOUSE NEGATIVE (Negative)
[2024-05-07 08:41] LABS: Band Neutrophils Percent 13 % (3-5); Lymphocytes Absolute Manual 2.6 X10*3/uL (1.2-4.9); Lymphocytes Percent Manual 10 % (20-40); Monocytes Absolute Manual 0.8 X10*3/uL (0.1-1.2); Monocytes Percent Manual 3 % (2-11); Neutrophils Absolute Manual 22.9 X10*3/uL (2.0-8.3); Platelet Estimate NORMAL (NORMAL); Platelet Morphology Comment NORMAL; RBC Morphology NORMAL
[2024-05-07] MEDS: Ketorolac Tromethamine 15 MG/ML VIAL IVPUSH (08:50)
[2024-05-07] MEDS: ondansetron HCL 4 MG/2 ML VIAL IVPUSH (08:50)
[2024-05-07] MEDS: 0.9 % Sodium Chloride 1,000 ML 999 ML IV ×3 (08:50→10:41)
--- NOTE | 2024-05-07 08:52 | PC.NURSE ---
Pt. medicated per DEC.
--- NOTE | 2024-05-07 08:53 | PC.NURSE ---
20G to LAC inserted. Tolerated well
--- NOTE | 2024-05-07 09:34 | PC.NURSE ---
Blood cultures and lactic acid sent as ordered.
[2024-05-07] MEDS: cefEPime HCl 2 GM in 0.9 % Sodium Chloride 50 ML IV (09:45)
--- NOTE | 2024-05-07 09:45 | PC.NURSE ---
Pt. is on panel monitor at this time.
[2024-05-07 10:02] LABS: Lactic Acid 2.7 mmol/L (0.5-2.0)
[2024-05-07 10:03] LABS: B Type Natriuretic Peptide 144 pg/mL (<100)
--- NOTE | 2024-05-07 10:39 | PC.NURSE ---
20G inserted to RAC. Tolerated well.
[2024-05-07] MEDS: 0.9 % Sodium Chloride 500 ML 999 ML IV (10:41)
[2024-05-07 11:39] LABS: Reflex Lactate? Lactic Acid Added
[2024-05-07 12:17] LABS: ~Lactic Acid-LAB USE ONLY 2.9 mmol/L (0.5-2.0)
--- NOTE | 2024-05-07 12:47 | PM.IMHP ---
History of Present Illness Date of Service: 05/07/24 Chief Complaint: fever, chills 83F PMH hfref, hld, pafib, htn, presented with fevers. Patient reports feeling well on a.m. prior to presentation. That evening she was sitting on couch watching TV and suddenly became cold, diaphoretic, report of fever of 102.5. Also complaining of diffuse back pain and abdominal pain. Did not have any diarrhea or dysuria at home. But in ED reports 1 episode of diarrhea. Also reports some shortness of breath without wheezing. Denies chest pain. In ED white blood cell count significant at 26,000. Chest x-ray negative. CT abdomen with no acute findings. UA nitrite negative with 6-10 WBCs no bacteria. Review of Systems Review of Systems: Yes all other systems are reviewed and are negative [facility] Medical History Osteoporosis Uterine prolapse Rectocele Hyperlipidemia Sinus bradycardia Atrial fibrillation Paroxysmal atrial fibrillation HTN (hypertension) Family History Father CVD (cardiovascular disease) Mother CVD (cardiovascular disease) Diabetes Other Substance use disorder Surgical History History of cholecystectomy Hx of tubal ligation Social History Household Members: Family Housing: House Do you presently have visiting nurse or other home services: No Alcohol intake: unknown Patient Tobacco Use Status: Former Tobacco user Years Smoked: 12 +/- Smoked in Last 30 Days: No e-Cigarette/Vaping Use: Never Used Use of substances other than those prescribed or required for medical reasons: No Advance Directives: No Advance Directives Information Provided: Yes Do you have a plan to hurt others: No Plan service: No 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 Current occupational exposures/hazards: No Cognitive needs: No Hearing needs: No Vision needs: Yes Meds Allergies Allergy/AdvReac Type Severity Reaction Status Date / Time codeine [CODEINE] Allergy Intermediate HEADACHES Verified 05/07/24 07:24 hydrochlorothiazide Allergy Intermediate NAUSEA & Verified 05/07/24 07:24 [HYDROCHLOROTHIAZIDE] VOMITING, low K latex [LATEX] Allergy Intermediate RASH Verified 05/07/24 07:24 lisinopril [LISINOPRIL] AdvReac Mild COUGH Verified 05/07/24 07:24 Home Medications ?Medication ?Instructions ?Recorded ?Confirmed ?Last Taken ?Type cholecalciferol (vitamin D3) 25 25 mcg PO DAILY 09/17/20 04/29/24 09/25/20 History mcg (1,000 unit) capsule furosemide 20 mg tablet 20 mg PO DAILY edema 05/07/24 05/07/24 Unknown History losartan 50 mg tablet 50 mg PO BID 05/07/24 05/07/24 05/07/24 History triamcinolone acetonide 0.1 % 1 appl topical BID PRN Rash 05/07/24 05/07/24 Unknown History topical cream warfarin 5 mg tablet 2.5 mg PO BEDTIME 05/07/24 05/07/24 05/06/24 History Physical Exam Vital Signs and Narrative: Vital Signs: Last Vital Signs Temp 98.7 F 05/07/24 09:43 Pulse 88 05/07/24 11:53 Resp 14 05/07/24 11:53 BP 177/64 H 05/07/24 11:53 Pulse Ox 93 05/07/24 11:53 O2 Del Method Room Air 05/07/24 11:53 BMI result Body Mass Index 31.1 Results Labs 05/07/24 07:46 05/07/24 07:46 Labs: Laboratory Results - last 24 hr 05/07/24 05/07/24 05/07/24 07:35 07:46 09:34 MCV 86.7 MCH 30.8 MCHC 35.6 H RDW 13.1 Plt Count 184 MPV 10.4 Immature Gran % (Auto) Cancelled Neut % (Auto) Cancelled Lymph % (Auto) Cancelled [place] % (Auto) Cancelled Eos % (Auto) Cancelled Baso % (Auto) Cancelled Lymph # (Auto) Cancelled [place] # (Auto) Cancelled Eos # (Auto) Cancelled Baso # (Auto) Cancelled Abs Immat Gran (auto) Cancelled Absolute Neuts (auto) Cancelled Absolute Nucleated RBC 0.000 Nucleated RBC % (auto) 0.0 Neutrophils % (Manual) 74 H Band Neutrophils % 13 H Lymphocytes % (Manual) 10 L Monocytes % (Manual) 3 Abs Neuts (Manual) 22.9 H Lymphocytes # (Manual) 2.6 Monocytes # (Manual) 0.8 Platelet Estimate NORMAL Plt Morphology Comment NORMAL RBC Morphology NORMAL Smear Tech's Comments MANUAL DIFF Anion Gap 14 Estim Creat Clear Calc 40.1 Estimated GFR 54 Random Glucose 158 H Lactic Acid 2.7 H* Lactic Acid F/U @ 2Hr Calcium 9.9 D Magnesium 2.0 Total Bilirubin 2.0 H AST 15 ALT 14 Alkaline Phosphatase 95 B-Natriuretic Peptide 144 H Total Protein 7.2 Albumin 4.3 Lipase 19 Urine Color Yellow Urine Appearance Clear Urine pH 6.5 Ur Specific [place] 1.020 Urine Protein Negative Urine Glucose (UA) Negative Urine Ketones Negative Urine Blood Trace H Urine Nitrite Negative Ur Leukocyte Esterase Small (1+) H Urine RBC 6-10 H Urine WBC 6-10 H Ur Squamous Epith Cells 3-5 Urine Bacteria None Seen Hyaline Casts 0-2 Influenza Type A (PCR) NEGATIVE Influenza Type B (PCR) NEGATIVE RSV RNA Qual (PCR) NEGATIVE SARS-CoV-2 RNA (RT-PCR) NEGATIVE 05/07/24 11:50 MCV MCH MCHC RDW Plt Count MPV Immature Gran % (Auto) Neut % (Auto) Lymph % (Auto) [place] % (Auto) Eos % (Auto) Baso % (Auto) Lymph # (Auto) [place] # (Auto) Eos # (Auto) Baso # (Auto) Abs Immat Gran (auto) Absolute Neuts (auto) Absolute Nucleated RBC Nucleated RBC % (auto) Neutrophils % (Manual) Band Neutrophils % Lymphocytes % (Manual) Monocytes % (Manual) Abs Neuts (Manual) Lymphocytes # (Manual) Monocytes # (Manual) Platelet Estimate Plt Morphology Comment RBC Morphology Smear Tech's Comments Anion Gap Estim Creat Clear Calc Estimated GFR Random Glucose Lactic Acid Lactic Acid F/U @ 2Hr 2.9 H* Calcium Magnesium Total Bilirubin AST ALT Alkaline Phosphatase B-Natriuretic Peptide Total Protein Albumin Lipase Urine Color Urine Appearance Urine pH Ur Specific [place] Urine Protein Urine Glucose (UA) Urine Ketones Urine Blood Urine Nitrite Ur Leukocyte Esterase Urine RBC Urine WBC Ur Squamous Epith Cells Urine Bacteria Hyaline Casts Influenza Type A (PCR) Influenza Type B (PCR) RSV RNA Qual (PCR) SARS-CoV-2 RNA (RT-PCR) Imaging Radiologist's Impressions: Impressions Chest X-Ray 05/07/24 09:10 IMPRESSION: * Clear lungs. Abdomen/Pelvis CT 05/07/24 09:14 IMPRESSION: 1. No acute intra-abdominal or pelvic findings seen to explain the patient's right back pain. 2. Mild sigmoid colonic diverticulosis with no evidence of acute diverticulitis. 3. Incompletely characterized mid left renal mass, favored to represent a hemorrhagic or proteinaceous cyst, given the relative stability since 01/25/2021. Close clinical correlation is requested. Consider renal ultrasound correlation. 4. Moderate size retrocardiac hiatal hernia. 5. Moderate to severe atherosclerotic vascular calcifications. 6. Status post cholecystectomy with no evidence of biliary obstruction. 7. Multiple calcified uterine fibroids. Assessment and Plan (1) Acute UTI: Status: Acute Plan 83F PMH chronic bilateral lower extremity edema, hld, pafib, htn, presented with fevers sepsis (leukocytosis and fevers at home, clinically appears septic) due to GI infection vs UTI rocephin, flagyl follow up cultures, stool studies pafib multaq, lopressor, coumadin, monitor inr htn losartan, lopressor, amlodipine hfref lasix dvt prophylaxis - coumadin full code paitent with sepsis, needing iv abx, and cultures follow up, therefore, expected to require atleast 2 midnights inpatient. Quality Stroke Does the patient have a stroke diagnosis?: No VTE Prior VTE?: No VTE Risk Level:: Medical - moderate - high VTE Device Contraindication: Treatment Not Indicated VTE Drug Contraindication: N/A - Med Ordered
--- NOTE | 2024-05-07 12:56 | PHA.MEDREC ---
Addendum entered by Torrie Lopez RPh 05/07/24 13:20: JAIR HAS REVIEWED MED REC DONE BY CARLOS Original Note: Pharmacy Consult ? Medication Reconciliation Pharmacy has completed the medication reconciliation. spoke with patient to confirm medications. She confirmed amlodipine 7.5mg daily, warfarin 2.5mg daily at night which she last took yesterday. She takes multaq 400mg BID last taken yesterday. She has been taking furosemide 20mg daily for the past week but normally she does not take everyday. Her losartan 50mg recently got increased to BID a week or two ago. She confirmed she cuts her metoprolol in half and takes 1/2 BID. She did take her morning medications today but not the multaq.
[2024-05-07] MEDS: metroNIDAZOLE/NS 500 MG/100 ML PIGGYBACK 100 MG IV (13:39)
[2024-05-07 13:53] LABS: Reflex Lactate? 2 Y
[2024-05-07] MEDS: Acetaminophen 325 MG TABLET 650 MG PO (14:08)
--- NOTE | 2024-05-07 14:08 | PC.NURSE ---
Pt. medicated with PRN Tylenol for fever
[2024-05-07 14:50] LABS: Prothrombin Time 37.1 SEC (11.1-13.3)
[2024-05-07 14:54] LABS: ~Lactic Acid-LAB USE ONLY 1.3 mmol/L (0.5-2.0)
--- NOTE | 2024-05-07 18:18 | PC.NURSE ---
Awaiting Warfarin dose per pharmacy.
[2024-05-07] MEDS: Warfarin Sodium 2.5 MG TABLET PO (18:31)
--- NOTE | 2024-05-07 20:20 | PC.NURSE ---
critical: 2/2 blood cultures positive for gram positive cocci in chains
--- NOTE | 2024-05-07 21:01 | MHC.EDTECH ---
Transported Pt to 379
[2024-05-07] MEDS: Metoprolol Tartrate 25 MG TABLET PO (21:57)
[2024-05-07] MEDS: Dronedarone HCl 400 MG TABLET PO (21:57)
[2024-05-07] MEDS: Losartan Potassium 50 MG TABLET PO (21:58)
[2024-05-07] MEDS: cefTRIAXone sodium 1 GM in 0.9 % Sodium Chloride 50 ML IV (21:59)
[2024-05-07] MEDS: 0.9 % Sodium Chloride Flush 3 ML SYRINGE IVFLUSH (22:01)
[2024-05-07] MEDS: Cholecalciferol (Vitamin D3) 25 MCG TABLET PO (22:06)
[2024-05-08] VITALS (8 sets, daily range): BP systolic 107–157; BP diastolic 54–82; PULSE 58–123; RESP 18–20; TEMP 36.2–36.8; O2SAT 93–96
[2024-05-08] MEDS: metroNIDAZOLE/NS 500 MG/100 ML PIGGYBACK 100 MG IV ×2 (01:06→11:50)
[2024-05-08 07:04] LABS: Hematocrit 33.2 % (37.0-47.0); Hemoglobin 11.4 g/dl (12.0-16.0); Mean Corpuscular HGB Conc 34.3 g/dl (31.0-35.0); Mean Corpuscular Hemoglobin 30.6 pg (27.0-33.0); Mean Platelet Volume 10.5 fL (9.4-12.3); Platelet Count 129 X10*3/uL (160-400); Red Blood Count 3.73 X10*6/uL (4.20-5.50); Red Cell Distribution Width 13.9 % (11.0-16.0); White Blood Count 14.3 X10*3/uL (4.8-10.8)
[2024-05-08 07:12] LABS: INTERNATIONAL NORM RATIO 3.1 (0.9-1.1); Prothrombin Time 38.1 SEC (11.1-13.3)
[2024-05-08 07:23] LABS: Anion Gap 8 (12-20); Blood Urea Nitrogen 15 mg/dL (9-16); Carbon Dioxide 22 mmol/L (22-29); Chloride 111 mmol/L (96-108); Creatinine Clr Calc Pharmacy 60.5; Estimated Glomerular Filt Rate > 60; Glucose Fasting 94 mg/dL (60-99); Magnesium 1.9 mg/dL (1.6-2.6); Potassium 3.8 mmol/L (3.3-5.1); Sodium 137 mmol/L (135-145)
--- NOTE | 2024-05-08 08:22 | P.PNIM_ITS ---
Subjective Subjective Date of Service: 05/08/24 Interval History: feeling better, had fever last ngiht Physical Exam 2 Vital Signs: Vital Signs: Last Vital Signs Temp 97.9 F 05/08/24 07:27 Pulse 104 H 05/08/24 07:27 Resp 18 05/08/24 07:27 BP 107/55 L 05/08/24 07:27 Pulse Ox 93 05/08/24 07:27 O2 Del Method Room Air 05/08/24 07:27 BMI result Body Mass Index 32.4 General: AO X 3, no acute distress Resp: CTA bilateral, no accessory muscles used CVS: S1,S2,RRR, 2+ bilateral edema GI: soft, non tender, non distended Neuro: motor grossly intact, alert Psych: appropriate affect, appropriate insight Objective Data Active Medications Acetaminophen (Acetaminophen 325 Mg Tablet) 650 mg PO Q6H PRN PRN Reason: Pain, Mild (Pain Scale 1-3), fever or headache Last Admin: 05/07/24 14:08 Dose: 650 mg Documented By: RADHA Amlodipine Besylate (Amlodipine Besylate 2.5 Mg Tablet) 2.5 mg PO DAILY [facility]; Protocol Amlodipine Besylate (Amlodipine Besylate 5 Mg Tablet) 5 mg PO DAILY [facility]; Protocol Atorvastatin Calcium (Atorvastatin Calcium 40 Mg Tablet) 40 mg PO DAILY [facility] Calcium Carbonate (Calcium Carbonate 750 Mg Tab.Chew) 750 mg PO Q4H PRN PRN Reason: Heartburn Dronedarone (Dronedarone Hcl 400 Mg Tablet) 400 mg PO BID [facility] Last Admin: 05/07/24 21:57 Dose: 400 mg Documented By: JOSELINE Furosemide (Furosemide 20 Mg Tablet) 20 mg PO DAILY [facility]; Protocol Ceftriaxone Sodium 1 gm/ (Sodium Chloride) 50 mls @ 100 mls/hr IV Q24H [facility] Last Infusion: 05/07/24 23:47 Dose: Infused Documented By: MEME Metronidazole (Flagyl) 500 mg in 100 mls @ 100 mls/hr IV Q12H [facility] Last Infusion: 05/08/24 02:21 Dose: Infused Documented By: MEME Losartan Potassium (Losartan Potassium 50 Mg Tablet) 50 mg PO BID [facility]; Protocol Last Admin: 05/07/24 21:58 Dose: 50 mg Documented By: JOSELINE Magnesium Hydroxide (Milk Of Magnesia 30 Ml Oral.Susp) 30 ml PO DAILY PRN PRN Reason: Constipation Melatonin (Melatonin 3 Mg Tablet) 6 mg PO BEDTIME PRN PRN Reason: Insomnia Metoprolol Tartrate (Metoprolol Tartrate 25 Mg Tablet) 25 mg PO BID [facility]; Protocol Last Admin: 05/07/24 21:57 Dose: 25 mg Documented By: JOSELINE Nystatin (Nystatin Powder 15 Gm Bottle) 1 appl TOPICAL BID PRN; Protocol PRN Reason: rash Sodium Chloride (0.9 % Sodium Chloride Flush 3 Ml Syringe) 3 ml IVFLUSH QSHIFT [facility] Last Admin: 05/07/24 22:01 Dose: 3 ml Documented By: JOSELINE Triamcinolone Acetonide (Triamcinolone Acet 0.1 % Cream 15 Gm Tube) 1 appl TOPICAL BID PRN; Protocol PRN Reason: Rash Vitamin D (Cholecalciferol (Vitamin D3) 25 Mcg Tablet) 25 mcg PO BEDTIME [facility] Last Admin: 05/07/24 22:06 Dose: 25 mcg Documented By: JOSELINE Warfarin Sodium (Warfarin Sodium 2.5 Mg Tablet) 2.5 mg PO DAILY@1800 [facility] Last Admin: 05/07/24 18:31 Dose: 2.5 mg Documented By: RADHA Labs 05/08/24 06:00 05/08/24 06:00 Labs: Laboratory Results - last 24 hr 05/07/24 05/07/24 05/07/24 07:35 07:46 09:34 MCV 86.7 MCH 30.8 MCHC 35.6 H RDW 13.1 Plt Count 184 MPV 10.4 Immature Gran % (Auto) Cancelled Neut % (Auto) Cancelled Lymph % (Auto) Cancelled [place] % (Auto) Cancelled Eos % (Auto) Cancelled Baso % (Auto) Cancelled Lymph # (Auto) Cancelled [place] # (Auto) Cancelled Eos # (Auto) Cancelled Baso # (Auto) Cancelled Abs Immat Gran (auto) Cancelled Absolute Neuts (auto) Cancelled Absolute Nucleated RBC 0.000 Nucleated RBC % (auto) 0.0 Neutrophils % (Manual) 74 H Band Neutrophils % 13 H Lymphocytes % (Manual) 10 L Monocytes % (Manual) 3 Abs Neuts (Manual) 22.9 H Lymphocytes # (Manual) 2.6 Monocytes # (Manual) 0.8 Platelet Estimate NORMAL Plt Morphology Comment NORMAL RBC Morphology NORMAL Smear Tech's Comments MANUAL DIFF PT INR Anion Gap Estim Creat Clear Calc Estimated GFR Fasting Glucose Lactic Acid 2.7 H* Lactic Acid F/U @ 2Hr Lactic Acid F/U @ 4Hr Calcium Magnesium 2.0 B-Natriuretic Peptide 144 H Lipase 19 Urine Color Yellow Urine Appearance Clear Urine pH 6.5 Ur Specific [place] 1.020 Urine Protein Negative Urine Glucose (UA) Negative Urine Ketones Negative Urine Blood Trace H Urine Nitrite Negative Ur Leukocyte Esterase Small (1+) H Urine RBC 6-10 H Urine WBC 6-10 H Ur Squamous Epith Cells 3-5 Urine Bacteria None Seen Hyaline Casts 0-2 Influenza Type A (PCR) NEGATIVE Influenza Type B (PCR) NEGATIVE RSV RNA Qual (PCR) NEGATIVE SARS-CoV-2 RNA (RT-PCR) NEGATIVE 05/07/24 05/07/24 05/07/24 11:50 14:37 14:38 MCV MCH MCHC RDW Plt Count MPV Immature Gran % (Auto) Neut % (Auto) Lymph % (Auto) [place] % (Auto) Eos % (Auto) Baso % (Auto) Lymph # (Auto) [place] # (Auto) Eos # (Auto) Baso # (Auto) Abs Immat Gran (auto) Absolute Neuts (auto) Absolute Nucleated RBC Nucleated RBC % (auto) Neutrophils % (Manual) Band Neutrophils % Lymphocytes % (Manual) Monocytes % (Manual) Abs Neuts (Manual) Lymphocytes # (Manual) Monocytes # (Manual) Platelet Estimate Plt Morphology Comment RBC Morphology Smear Tech's Comments PT 37.1 H INR 3.0 H Anion Gap Estim Creat Clear Calc Estimated GFR Fasting Glucose Lactic Acid Lactic Acid F/U @ 2Hr 2.9 H* Lactic Acid F/U @ 4Hr 1.3 Calcium Magnesium B-Natriuretic Peptide Lipase Urine Color Urine Appearance Urine pH Ur Specific [place] Urine Protein Urine Glucose (UA) Urine Ketones Urine Blood Urine Nitrite Ur Leukocyte Esterase Urine RBC Urine WBC Ur Squamous Epith Cells Urine Bacteria Hyaline Casts Influenza Type A (PCR) Influenza Type B (PCR) RSV RNA Qual (PCR) SARS-CoV-2 RNA (RT-PCR) 05/08/24 06:00 MCV 89.0 MCH 30.6 MCHC 34.3 RDW 13.9 Plt Count 129 L D MPV 10.5 Immature Gran % (Auto) Neut % (Auto) Lymph % (Auto) [place] % (Auto) Eos % (Auto) Baso % (Auto) Lymph # (Auto) [place] # (Auto) Eos # (Auto) Baso # (Auto) Abs Immat Gran (auto) Absolute Neuts (auto) Absolute Nucleated RBC 0.000 Nucleated RBC % (auto) 0.0 Neutrophils % (Manual) Band Neutrophils % Lymphocytes % (Manual) Monocytes % (Manual) Abs Neuts (Manual) Lymphocytes # (Manual) Monocytes # (Manual) Platelet Estimate Plt Morphology Comment RBC Morphology Smear Tech's Comments PT 38.1 H INR 3.1 H Anion Gap 8 L Estim Creat Clear Calc 60.5 Estimated GFR > 60 Fasting Glucose 94 Lactic Acid Lactic Acid F/U @ 2Hr Lactic Acid F/U @ 4Hr Calcium 9.0 D Magnesium 1.9 B-Natriuretic Peptide Lipase Urine Color Urine Appearance Urine pH Ur Specific [place] Urine Protein Urine Glucose (UA) Urine Ketones Urine Blood Urine Nitrite Ur Leukocyte Esterase Urine RBC Urine WBC Ur Squamous Epith Cells Urine Bacteria Hyaline Casts Influenza Type A (PCR) Influenza Type B (PCR) RSV RNA Qual (PCR) SARS-CoV-2 RNA (RT-PCR) Microbiology Microbiology Results: Microbiology 05/07/24 09:34 Blood Culture - Preliminary Blood - Venous Prelim: GPC Gram Stain only 05/07/24 09:34 Blood Culture - Preliminary Blood - Venous Prelim: GPC Gram Stain only Assessment and Plan (1) Acute UTI: Status: Acute Plan 83F PMH chronic bilateral lower extremity edema, hld, pafib, htn, presented with fevers sepsis due to GI infection vs UTI copmlicated by GPC bacteremia rocephin, flagyl follow up cultures, stool studies echo, id pafib multaq, lopressor, coumadin, monitor inr htn losartan, lopressor, amlodipine hfref lasix dvt prophylaxis - coumadin full code reason for continued hospitalization:bacteremia Quality Stroke Does the patient have a stroke diagnosis?: No VTE Prior VTE?: No VTE Risk Level:: Medical - moderate - high VTE Device Contraindication: Treatment Not Indicated VTE Drug Contraindication: N/A - Med Ordered
[2024-05-08] MEDS: amLODIPine Besylate 5 MG TABLET PO (08:34)
[2024-05-08] MEDS: Metoprolol Tartrate 25 MG TABLET PO ×2 (08:34→18:31)
[2024-05-08] MEDS: Atorvastatin Calcium 40 MG TABLET PO (08:34)
[2024-05-08] MEDS: amLODIPine Besylate 2.5 MG TABLET PO (08:34)
[2024-05-08] MEDS: Furosemide 20 MG TABLET PO (08:34)
[2024-05-08] MEDS: Losartan Potassium 50 MG TABLET PO ×2 (08:34→20:17)
[2024-05-08] MEDS: Dronedarone HCl 400 MG TABLET PO ×2 (08:34→18:31)
[2024-05-08] MEDS: 0.9 % Sodium Chloride Flush 3 ML SYRINGE IVFLUSH ×2 (08:35→20:25)
--- NOTE | 2024-05-08 10:19 | MHC.CM.PN ---
IMM delivered. Patient lives in a home w/ son. Functionally independent. Denies use of DME or services. PCP Silvia Reynoso MD Reports she has an HCP naming her son Gasper as HCA. Copy requested. DP: Goal is home self care, do not anticipate the need for services. Family to transport. CM will continue to follow.
[2024-05-08] MEDS: 0.9 % Sodium Chloride 500 ML 999 ML IV (14:40)
--- NOTE | 2024-05-08 18:34 | PM.EVENT ---
Event Note Date of Service: 05/08/24 Event Note: Called to see patient for prolonged tachycardia. Monitor demonstrating a flutter with a ventricular rate of 120-130. We will give Lopressor 2.5 mg x 1 and evening meds early. May repeat the Lopressor if needed. Patient totally asymptomatic Respiratory: Clear to auscultation bilaterally no rales rhonchi or wheezes CV: Positive S1-S2 tachy Time Spent With Patient Time: Total time managing care of this patient today ____ minutes.
[2024-05-08] MEDS: Metoprolol Tartrate 5 MG/5 ML VIAL 2.5 MG IVPUSH (18:41)
[2024-05-08] MEDS: Cholecalciferol (Vitamin D3) 25 MCG TABLET PO (20:17)
[2024-05-08] MEDS: cefTRIAXone sodium 2 GM in 0.9 % Sodium Chloride 50 ML IV (20:18)
[2024-05-09] VITALS (10 sets, daily range): BP systolic 116–151; BP diastolic 57–88; PULSE 63–131; RESP 16–20; TEMP 36.2–37.2; O2SAT 94–97
--- NOTE | 2024-05-09 07:00 | CA_ITS ---
Transthoracic Echocardiogram Patient (Last, First, Middle): ToddMarch, Gender: Female Date of : 1940 Age: 83 Procedure Date: 05/09/2024 Procedure Type: Transthoracic Echocardiogram Location: S3W Height: 154.94 cm Weight: 78.93 kg BSA: 1.78 m2 Heart Rate: bpm BP: 139 / 66 mmHg Gun Sealing Machine Operator: JAEL Huynh MD: Edward Zimmerman MD Plaster Applicator: Carson Angelo MD Symptoms: bacteremia Study Quality: Fair ECG Rhythm: Atrial Fibrillation Conclusions: - 1. Normal LV ejection fraction of 55-60% 2. Normal cardiac valvular Dopplers 3. Moderately dilated left atrium 4. Normal RV systolic pressure 5. Mildly dilated ascending aorta next 6. No gross pericardial effusion Findings Left Ventricle Normal left ventricular cavity size. There is normal left ventricular wall thickness. The left ventricular systolic function is normal. The visually estimated ejection fraction is between 55-60%. Diastolic function is indeterminate on the basis of available data. Right Ventricle The right ventricle was not well visualized. Atria The left atrium is moderately dilated. Interatrial shunt cannot be excluded. The right atrium is mildly dilated. Aortic Valve There is mild calcification of the aortic valve. There is no aortic valve stenosis. There is no aortic valve regurgitation. Mitral Valve There is mild anterior and posterior mitral leaflet thickening. There is mild mitral annular calcification. There is trace mitral valve regurgitation. There is no mitral valve stenosis. Pulmonic Valve The pulmonic valve is likely normal. Tricuspid Valve Likely normal tricuspid valve structure and function. There is mild tricuspid valve regurgitation. There is no evidence of pulmonary hypertension. Great Vessels There is mild dilatation of the ascending aorta measuring 3.90 cm. Venous The inferior vena cava is normal in size and collapses greater than 50% with inspiration. Pericardium/Pleural There is no evidence of pericardial effusion. Measurements 2D Linear Measurements IVSd: 1.53 0.6-0.9/0.6-1.0 cm LVIDd: 4.31 3.9-5.3/4.2-5.9 cm LVIDd Index: 2.42 2.4-3.2/2.2-3.1 cm/m2 LVIDs: 2.97 2.0-3.6 cm LVPWd: 1.13 0.7-1.1 cm Ao Root: 3.60 2.1-3.5 cm LA Diam: 3.80 2.7-3.8/3.0-4.0 cm LAIDs Index: 2.13 1.5-2.3 cm/m2 LV Mass: 268.89 67-162/88-224 g LV Mass Index: 151.06 43-95/49-115 g/m2 LVOT Diam: 2.00 3.0+(-)1.3 cm 2D Systolic Function EF 4C: 56.90 >55% EF 2C: 54.50 >55% EF BiP: 57.20 >55% Aortic Valve AoV Pk Graham: 1.48 AoV Mn Graham: 0.92 AoV VTI: 0.21 AoV Pk Grad: 9.00 Aov Mn Grad: 4.00 ASHLEY Cont.VTI: 2.73 LVOT LVOT Pk Graham: 1.22 LVOT Mn Graham: 0.73 LVOT VTI: 0.18 LVOT Pk Grad: 6.00 LVOT Mn Grad: 3.00 LVOT Diam: 2.00 LVOT Area: 3.14 Right Ventricle TAPSE (mm): 18.70 TVS' Graham: 19.50 Tricuspid Valve TR Pk Graham: 2.62 TR Pk Grad: 27.00 RA Press: 3.00 RVSP: 30.00 Great Vessels Aorta Ao Root-2D: 3.60 2.0-3.7 cm Ao Asc: 3.90 2.1-3.4 cm Ao Arch: 2.80 Updated in Other Vendor System with Status of Final Carson Angelo MD electronically signed on 05/09/2024 3:05:58 PM with status of Final
[2024-05-09] MEDS: 0.9 % Sodium Chloride Flush 3 ML SYRINGE IVFLUSH ×3 (07:39→20:37)
[2024-05-09] MEDS: Dronedarone HCl 400 MG TABLET PO (07:39)
[2024-05-09] MEDS: Metoprolol Tartrate 25 MG TABLET PO ×2 (07:39→20:28)
[2024-05-09] MEDS: amLODIPine Besylate 5 MG TABLET PO (07:40)
[2024-05-09] MEDS: Furosemide 20 MG TABLET PO (07:40)
[2024-05-09] MEDS: amLODIPine Besylate 2.5 MG TABLET PO (07:40)
[2024-05-09] MEDS: Losartan Potassium 50 MG TABLET PO (07:40)
[2024-05-09 08:25] LABS: Hematocrit 37.6 % (37.0-47.0); Hemoglobin 12.6 g/dl (12.0-16.0); Mean Corpuscular HGB Conc 33.5 g/dl (31.0-35.0); Mean Corpuscular Hemoglobin 29.7 pg (27.0-33.0); Mean Corpuscular Volume 88.7 fL (80.0-98.0); Mean Platelet Volume 10.3 fL (9.4-12.3); Platelet Count 158 X10*3/uL (160-400); Red Blood Count 4.24 X10*6/uL (4.20-5.50); Red Cell Distribution Width 14.1 % (11.0-16.0); White Blood Count 8.8 X10*3/uL (4.8-10.8)
[2024-05-09 08:29] LABS: INTERNATIONAL NORM RATIO 1.5 (0.9-1.1); Prothrombin Time 18.3 SEC (11.1-13.3)
--- NOTE | 2024-05-09 08:32 | HO.PM.IMPN ---
Subjective Subjective Date of Service: 05/09/24 Interval History: feeling better, felt palpitatoins while in flutter yesterday Physical Exam Vital Signs: Vital Signs: Last Vital Signs Temp 97.3 F 05/09/24 07:17 Pulse 65 05/09/24 07:17 Resp 16 05/09/24 07:17 BP 139/66 05/09/24 07:17 Pulse Ox 96 05/09/24 07:17 O2 Del Method Room Air 05/09/24 07:17 BMI result Body Mass Index 32.4 General: AO X 3, no acute distress Resp: CTA bilateral, no accessory muscles used CVS: S1,S2,RRR, 2+ bilateral edema GI: soft, non tender, non distended Neuro: motor grossly intact, alert Psych: appropriate affect, appropriate insight Objective Data Active Medications Acetaminophen (Acetaminophen 325 Mg Tablet) 650 mg PO Q6H PRN PRN Reason: Pain, Mild (Pain Scale 1-3), fever or headache Last Admin: 05/07/24 14:08 Dose: 650 mg Documented By: RADHA Amlodipine Besylate (Amlodipine Besylate 2.5 Mg Tablet) 2.5 mg PO DAILY [facility]; Protocol Last Admin: 05/09/24 07:40 Dose: 2.5 mg Documented By: LONI Amlodipine Besylate (Amlodipine Besylate 5 Mg Tablet) 5 mg PO DAILY [facility]; Protocol Last Admin: 05/09/24 07:40 Dose: 5 mg Documented By: LONI Atorvastatin Calcium (Atorvastatin Calcium 40 Mg Tablet) 40 mg PO BEDTIME [facility] Calcium Carbonate (Calcium Carbonate 750 Mg Tab.Chew) 750 mg PO Q4H PRN PRN Reason: Heartburn Dronedarone (Dronedarone Hcl 400 Mg Tablet) 400 mg PO BID [facility] Last Admin: 05/09/24 07:39 Dose: 400 mg Documented By: LONI Furosemide (Furosemide 20 Mg Tablet) 20 mg PO DAILY [facility]; Protocol Last Admin: 05/09/24 07:40 Dose: 20 mg Documented By: LONI Ceftriaxone Sodium 2 gm/ (Sodium Chloride) 50 mls @ 100 mls/hr IV Q24H [facility] Last Infusion: 05/08/24 21:02 Dose: Infused Documented By: JOSELINE Losartan Potassium (Losartan Potassium 50 Mg Tablet) 50 mg PO BID [facility]; Protocol Last Admin: 05/09/24 07:40 Dose: 50 mg Documented By: LONI Magnesium Hydroxide (Milk Of Magnesia 30 Ml Oral.Susp) 30 ml PO DAILY PRN PRN Reason: Constipation Melatonin (Melatonin 3 Mg Tablet) 6 mg PO BEDTIME PRN PRN Reason: Insomnia Metoprolol Tartrate (Metoprolol Tartrate 25 Mg Tablet) 25 mg PO BID [facility]; Protocol Last Admin: 05/09/24 07:39 Dose: 25 mg Documented By: LONI Nystatin (Nystatin Powder 15 Gm Bottle) 1 appl TOPICAL BID PRN; Protocol PRN Reason: rash Sodium Chloride (0.9 % Sodium Chloride Flush 3 Ml Syringe) 3 ml IVFLUSH QSHIFT [facility] Last Admin: 05/09/24 07:39 Dose: 3 ml Documented By: LONI Triamcinolone Acetonide (Triamcinolone Acet 0.1 % Cream 15 Gm Tube) 1 appl TOPICAL BID PRN; Protocol PRN Reason: Rash Vitamin D (Cholecalciferol (Vitamin D3) 25 Mcg Tablet) 25 mcg PO BEDTIME [facility] Last Admin: 05/08/24 20:17 Dose: 25 mcg Documented By: JOSELINE Warfarin Sodium (Warfarin Sodium 2.5 Mg Tablet) 2.5 mg PO DAILY@1800 [facility] Last Admin: 05/07/24 18:31 Dose: 2.5 mg Documented By: RADHA Labs 05/09/24 08:06 05/08/24 06:00 Labs: Laboratory Results - last 24 hr 05/09/24 08:06 MCV 88.7 MCH 29.7 MCHC 33.5 RDW 14.1 Plt Count 158 L MPV 10.3 Absolute Nucleated RBC 0.000 Nucleated RBC % (auto) 0.0 PT 18.3 H D INR 1.5 H Microbiology Microbiology Results: Microbiology 05/07/24 09:34 Blood Culture - Final Blood - Venous Strep agalactiae (Grp B) 05/07/24 09:34 Blood Culture - Final Blood - Venous Strep agalactiae (Grp B) 05/07/24 Unknown Urine Culture - Final Urine clean catch - Clean Catch Midstream Assessment and Plan (1) Acute UTI: Status: Acute Plan 83F PMH chronic bilateral lower extremity edema, hld, pafib, htn, presented with fevers sepsis due to GI infection vs UTI complicated by group b strespbacteremia will dc flagyl, rocephin increased to 2gm daily, follow up repeat cultures, echo, ID pafib with rvr symptomatic when in afib/flutter now in sinus multaq, lopressor, coumadin, monitor inr htn losartan, lopressor, amlodipine hfref lasix dvt prophylaxis - coumadin full code reason for continued hospitalization:bacteremia Quality Stroke Does the patient have a stroke diagnosis?: No VTE Prior VTE?: No VTE Risk Level:: Medical - moderate - high VTE Device Contraindication: Treatment Not Indicated VTE Drug Contraindication: N/A - Med Ordered
[2024-05-09 08:36] LABS: Anion Gap 12 (12-20); Blood Urea Nitrogen 11 mg/dL (9-16); Calcium 9.6 mg/dL (8.4-10.2); Carbon Dioxide 23 mmol/L (22-29); Chloride 109 mmol/L (96-108); Creatinine Clr Calc Pharmacy 57.1; Estimated Glomerular Filt Rate > 60; Glucose Fasting 107 mg/dL (60-99); Potassium 3.5 mmol/L (3.3-5.1); Sodium 140 mmol/L (135-145)
[2024-05-09 10:23] LABS: CDiff Gene PCR NEGATIVE (Negative)
--- NOTE | 2024-05-09 10:30 | PC.NURSE ---
Pt endorsing mild pain in right lower extremity, non-pitting edema and slight redness noted. MD Zimmerman made aware, new orders for venous duplex US entered, Pt aware.
[2024-05-09 11:10] LABS: Adenovirus F 40/41 Not Detected (Not Detect.); Astrovirus Not Detected (Not Detect.); Campylobacter Not Detected (Not Detect.); Cryptosporidium Not Detected (Not Detect.); Cyclospora cayetanensis Not Detected (Not Detect.); E. coli EAEC Not Detected (Not Detect.); E. coli EPEC Not Detected (Not Detect.); E. coli ETEC Not Detected (Not Detect.); E. coli STEC Not Detected (Not Detect.); Entamoeba histolytica Not Detected (Not Detect.); Giardia lamblia Not Detected (Not Detect.); Norovirus GI/GII Not Detected (Not Detect.); Plesiomonas shigelloides Not Detected (Not Detect.); Rotavirus A Not Detected (Not Detect.); Salmonella Not Detected (Not Detect.); Sapovirus Not Detected (Not Detect.); Shigella sp./EIEC Not Detected (Not Detect.); Vibrio Not Detected (Not Detect.); Vibrio Cholerae Not Detected (Not Detect.); Yersinia enterocolitica Not Detected (Not Detect.)
[2024-05-09] MEDS: Metoprolol Tartrate 5 MG/5 ML VIAL 2.5 MG IVPUSH ×2 (14:42→15:58)
--- NOTE | 2024-05-09 14:52 | PC.NURSE ---
Addendum entered by Sandra Thomas RN 05/09/24 16:05: Pt HR converted back to Afib, HR in 120's. MD prescribed IV digoxin, pt refuses at this time. MD ordered 2.5mg of Metoprolol IVP, Pt agreeable to take. Original Note: Pt HR afib sustaining 125s, Pt reporting palpitations, MD Zimmerman made aware. ordered 2.5mg metoprolol IVP. Medication administered as ordered, HR converted back to NSR HR 60's. Aware.
--- NOTE | 2024-05-09 15:32 | P.CNID_ITS ---
History of Present Illness Data of Consult Service Date: 05/09/24 Requesting physician: Edward Zimmerman Primary Care Provider: Silvia Reynoso MD HPI Reason for consult: Group B strep bacteremia She presents with chills and weakness for couple days. She also has right lateral leg redness. She has Group B strep bacteremia. Review of Systems 2 Review of Systems: Yes all other systems are reviewed and are negative [facility] Past Medical History Medical History (Updated 05/09/24 @ 15:35 by Kassie Whitten MD) Cellulitis Osteoporosis Uterine prolapse Rectocele Hyperlipidemia Sinus bradycardia Atrial fibrillation Paroxysmal atrial fibrillation HTN (hypertension) Family History Family History Father CVD (cardiovascular disease) Mother CVD (cardiovascular disease) Diabetes Other Substance use disorder Surgical History Surgical History History of cholecystectomy Hx of tubal ligation Social History Social History Household Members: Children Housing: House Do you presently have visiting nurse or other home services: No Alcohol intake: unknown Patient Tobacco Use Status: Former Tobacco user Years Smoked: 12 +/- Smoked in Last 30 Days: No e-Cigarette/Vaping Use: Never Used Patient Interested in Nicotine Replacement: No Patient Given Instructions on How to Stop Smoking: No Second Hand Smoke Exposure: No Use of substances other than those prescribed or required for medical reasons: No Currently Displaying Signs/Symptoms of Drug Intoxication Withdrawal: No Any prior treatment program specific to substance use: No Have you been hit, kicked, punched, or otherwise hurt by someone within the past year? If so, by whom?: No Do you feel safe in your current relationship?: No Is there a partner from a previous relationship who is making you feel unsafe now?: No Are you made to feel afraid or neglected: No Advance Directives: No Advance Directives Information Provided: Yes Do you have a plan to hurt others: No Plan Recently lost weight without trying: No How much weight loss: Not applicable Eating poorly because of decreased appetite: No Nutrition screen score: 0 Nutrition Risks: No Nutritional Risk Patient : No : No Poor oral hygiene: No service: No Current occupational status: retired Current occupation: [employer] Current occupational exposures/hazards: No Cognitive needs: No Hearing needs: No Vision needs: Yes Meds Allergies Allergy/AdvReac Type Severity Reaction Status Date / Time codeine [CODEINE] Allergy Intermediate HEADACHES Verified 05/07/24 07:24 hydrochlorothiazide Allergy Intermediate NAUSEA & Verified 05/07/24 07:24 [HYDROCHLOROTHIAZIDE] VOMITING, low K latex [LATEX] Allergy Intermediate RASH Verified 05/07/24 07:24 lisinopril [LISINOPRIL] AdvReac Mild COUGH Verified 05/07/24 07:24 Active Medications: Current Medications Acetaminophen (Acetaminophen 325 Mg Tablet) 650 mg PO Q6H PRN PRN Reason: Pain, Mild (Pain Scale 1-3), fever or headache Last Admin: 05/07/24 14:08 Dose: 650 mg Amlodipine Besylate (Amlodipine Besylate 2.5 Mg Tablet) 2.5 mg PO DAILY [facility]; Protocol Last Admin: 05/09/24 07:40 Dose: 2.5 mg Amlodipine Besylate (Amlodipine Besylate 5 Mg Tablet) 5 mg PO DAILY [facility]; Protocol Last Admin: 05/09/24 07:40 Dose: 5 mg Atorvastatin Calcium (Atorvastatin Calcium 40 Mg Tablet) 40 mg PO BEDTIME [facility] Calcium Carbonate (Calcium Carbonate 750 Mg Tab.Chew) 750 mg PO Q4H PRN PRN Reason: Heartburn Digoxin (Digoxin 0.5 Mg/2 Ml Ampul) 0.25 mg IVPUSH Q6H [facility] Stop: 05/09/24 21:01 Dronedarone (Dronedarone Hcl 400 Mg Tablet) 400 mg PO BID [facility] Last Admin: 05/09/24 07:39 Dose: 400 mg Furosemide (Furosemide 20 Mg Tablet) 20 mg PO DAILY [facility]; Protocol Last Admin: 05/09/24 07:40 Dose: 20 mg Ceftriaxone Sodium 2 gm/ (Sodium Chloride) 50 mls @ 100 mls/hr IV Q24H [facility] Last Infusion: 05/08/24 21:02 Dose: Infused Losartan Potassium (Losartan Potassium 50 Mg Tablet) 50 mg PO BID [facility]; Protocol Last Admin: 05/09/24 07:40 Dose: 50 mg Magnesium Hydroxide (Milk Of Magnesia 30 Ml Oral.Susp) 30 ml PO DAILY PRN PRN Reason: Constipation Melatonin (Melatonin 3 Mg Tablet) 6 mg PO BEDTIME PRN PRN Reason: Insomnia Metoprolol Tartrate (Metoprolol Tartrate 25 Mg Tablet) 25 mg PO BID [facility]; Protocol Last Admin: 05/09/24 07:39 Dose: 25 mg Nystatin (Nystatin Powder 15 Gm Bottle) 1 appl TOPICAL BID PRN; Protocol PRN Reason: rash Sodium Chloride (0.9 % Sodium Chloride Flush 3 Ml Syringe) 3 ml IVFLUSH QSHIFT [facility] Last Admin: 05/09/24 14:51 Dose: 3 ml Triamcinolone Acetonide (Triamcinolone Acet 0.1 % Cream 15 Gm Tube) 1 appl TOPICAL BID PRN; Protocol PRN Reason: Rash Vitamin D (Cholecalciferol (Vitamin D3) 25 Mcg Tablet) 25 mcg PO BEDTIME [facility] Last Admin: 05/08/24 20:17 Dose: 25 mcg Warfarin Sodium (Warfarin Sodium 2.5 Mg Tablet) 2.5 mg PO DAILY@1800 [facility] Last Admin: 05/07/24 18:31 Dose: 2.5 mg Home Medications ?Medication ?Instructions ?Recorded ?Confirmed ?Last Taken ?Type cholecalciferol (vitamin D3) 25 25 mcg PO BEDTIME 09/17/20 05/07/24 05/06/24 History mcg (1,000 unit) capsule furosemide 20 mg tablet 20 mg PO DAILY edema 05/07/24 05/07/24 Unknown History losartan 50 mg tablet 50 mg PO BID 05/07/24 05/07/24 05/07/24 History triamcinolone acetonide 0.1 % 1 appl topical BID PRN Rash 05/07/24 05/07/24 Unknown History topical cream warfarin 5 mg tablet 2.5 mg PO BEDTIME 05/07/24 05/07/24 05/06/24 History Physical Exam 2 Vital Signs: Vital Signs: Last Vital Signs Temp 98 F 05/09/24 15:01 Pulse 121 H 05/09/24 15:01 Resp 20 05/09/24 15:01 BP 136/84 05/09/24 15:01 Pulse Ox 96 05/09/24 15:01 O2 Del Method Room Air 05/09/24 15:01 BMI result Body Mass Index 32.4 Const: General: cooperative HEENT: Head: Yes normal to inspection Face and sinus: Yes normal facial exam Mouth: Normal oral and palatal mucosa present Teeth and gingiva: d entition normal Eyes: General: appearance normal, both eyes and all related structures P upils: Equal, round and reactive pupils present Resp: Effort & Inspection: normal respiratory effort Cardio: Rate: regular rate Rhythm: regular rhythm GI: Palpation (GI): Soft to palpation and nontender : General: Yes no CVA tenderness Back/Spine/Pelvis: Back: no CVA tenderness Skin: General skin exam: no rashes or lesions noted Neuro: General: moves all extremities Cranial nerves: Yes Equal, round and reactive pupils present Extrem: Other: slight redness lateral lower leg General: Yes normal to inspection Psych: Appearance: grossly normal Results Labs 05/09/24 08:06 05/09/24 08:07 Labs: Short CBC 05/09/24 Range/Units 08:06 WBC 8.8 (4.8-10.8) X10*3/uL Hgb 12.6 (12.0-16.0) g/dl Hct 37.6 (37.0-47.0) % Plt Count 158 L (160-400) X10*3/uL BMP 05/09/24 08:07 Sodium 140 Potassium 3.5 Chloride 109 H Carbon Dioxide 23 BUN 11 Creatinine 0.71 Calcium 9.6 D Microbiology Microbiology Results: Microbiology 05/07/24 09:34 Blood - Venous Blood Culture - Final Strep agalactiae (Grp B) 05/07/24 09:34 Blood - Venous Blood Culture - Final Strep agalactiae (Grp B) 05/07/24 Unknown Urine clean catch - Clean Catch Midstream Urine Culture - Final Assessment and Plan (1) Lower extremity edema: Status: Acute (2) Cellulitis: Status: Acute Plan Group B strep bactermia with no evidence endocarditis. Would give Ceftriaxone for now. po cephalosporin for 14 outpatient and if fails to improve would give IV Clindamycin couple days.
--- NOTE | 2024-05-09 17:14 | ECG_ITS ---
Test Reason : rhythm change Blood Pressure : / mmHG Vent. Rate : 122 BPM Atrial Rate : 244 BPM P-R Int : 000 ms QRS Dur : 078 ms QT Int : 228 ms P-R-T Axes : -88 -40 259 degrees QTc Int : 324 ms Atrial flutter with 2:1 A-V conduction Left axis deviation Minimal voltage criteria for LVH, may be normal variant ( R in aVL ) ST & T wave abnormality, consider lateral ischemia Abnormal ECG When compared with ECG of 21-NOV-2022 12:37, Atrial flutter gas replaced NSR Referred By: Edward Zimmerman Electronically Signed By:MYNOR BALDERAS MD
[2024-05-09] MEDS: Warfarin Sodium 2.5 MG TABLET PO (18:13)
[2024-05-09] MEDS: Digoxin 0.5 MG/2 ML AMPUL 0.125 MG IVPUSH (18:50)
[2024-05-09] MEDS: cefTRIAXone sodium 2 GM in 0.9 % Sodium Chloride 50 ML IV (20:28)
[2024-05-09] MEDS: Cholecalciferol (Vitamin D3) 25 MCG TABLET PO (20:36)
[2024-05-09] MEDS: 0.9 % Sodium Chloride 1,000 ML 999 ML IV (20:36)
[2024-05-09] MEDS: Atorvastatin Calcium 40 MG TABLET PO (20:36)
[2024-05-10] VITALS (10 sets, daily range): BP systolic 105–142; BP diastolic 58–85; PULSE 65–135; RESP 16–20; TEMP 36.3–37.2; O2SAT 95–97
[2024-05-10] MEDS: Digoxin 0.5 MG/2 ML AMPUL 0.125 MG IVPUSH (00:08)
[2024-05-10] MEDS: 0.9 % Sodium Chloride 500 ML IV (00:27)
[2024-05-10] MEDS: Metoprolol Tartrate 5 MG/5 ML VIAL IVPUSH (02:30)
[2024-05-10] MEDS: Metoprolol Tartrate 50 MG TABLET PO ×3 (03:22→21:21)
[2024-05-10 06:09] LABS: MANUAL DIFF FLAG NO
[2024-05-10 06:13] LABS: Basophils Percent Auto 0.4 % (0-2); Eosinophils Absolute Auto 0.1 X10*3/uL (0.0-0.4); Eosinophils Percent Auto 1.2 % (0-4); Hematocrit 39.1 % (37.0-47.0); Hemoglobin 13.7 g/dl (12.0-16.0); Imm Gran Abs Auto 0.02 X10*3/uL (0.00-0.03); Imm Gran Pct Auto 0.3 % (0.0-0.4); Lymphocytes Absolute Auto 1.6 X10*3/uL (1.2-4.9); Lymphocytes Percent Auto 20.5 % (20-40); Mean Corpuscular Hemoglobin 30.4 pg (27.0-33.0); Mean Corpuscular Volume 86.7 fL (80.0-98.0); Mean Platelet Volume 9.8 fL (9.4-12.3); Monocytes Absolute Auto 0.7 X10*3/uL (0.1-1.2); Monocytes Percent Auto 9.7 % (2-11); Neutrophils Absolute Auto 5.2 x10*3/uL (2.0-8.3); Neutrophils Percent Auto 67.9 % (45-73); Platelet Count 197 X10*3/uL (160-400); Red Blood Count 4.51 X10*6/uL (4.20-5.50); Red Cell Distribution Width 13.7 % (11.0-16.0); White Blood Count 7.7 X10*3/uL (4.8-10.8)
[2024-05-10 06:20] LABS: Lactic Acid 1.3 mmol/L (0.5-2.0)
[2024-05-10 06:36] LABS: INTERNATIONAL NORM RATIO 1.3 (0.9-1.1)
[2024-05-10 06:37] LABS: Alanine Aminotransferase 14 U/L (0-31); Albumin Level 3.6 g/dL (3.5-5.0); Alkaline Phosphatase 69 U/L (39-117); Anion Gap 12 (12-20); Aspartate Amino Transferase 19 U/L (5-31); Bilirubin Total 1.1 mg/dL (0.0-1.0); Blood Urea Nitrogen 10 mg/dL (9-16); Calcium 9.4 mg/dL (8.4-10.2); Carbon Dioxide 22 mmol/L (22-29); Chloride 108 mmol/L (96-108); Creatinine Clr Calc Pharmacy 61.5; Estimated Glomerular Filt Rate > 60; Glucose Random 122 mg/dL (60-115); Potassium 3.4 mmol/L (3.3-5.1); Sodium 139 mmol/L (135-145); Total Protein 6.4 g/dL (6.5-8.0)
[2024-05-10 06:41] LABS: Troponin-I High Sensitivity 7.3 ng/L (<3.5-17.0)
--- NOTE | 2024-05-10 07:54 | PC.NURSE ---
Patient HR 130s refused Multaq, third dose Digoxin 0.125mg c/o feeling sweaty, weak, denied SOB, or dizziness, education provided, refused , provider Francesca Shetty informed. patient converted to NSR with HR 60s 70s at 0517. Maintained rhythm for the remainder of shift. A&O x 4
[2024-05-10] MEDS: Furosemide 20 MG TABLET PO (08:14)
[2024-05-10] MEDS: Losartan Potassium 50 MG TABLET PO ×2 (08:14→21:21)
[2024-05-10] MEDS: amLODIPine Besylate 2.5 MG TABLET PO (08:14)
[2024-05-10] MEDS: 0.9 % Sodium Chloride Flush 3 ML SYRINGE IVFLUSH ×3 (08:15→22:30)
[2024-05-10] MEDS: Dronedarone HCl 400 MG TABLET PO ×2 (08:15→21:22)
[2024-05-10] MEDS: amLODIPine Besylate 5 MG TABLET PO (08:15)
--- NOTE | 2024-05-10 09:42 | P.PNIM_ITS ---
Subjective Subjective Date of Service: 05/10/24 Interval History: palpitations Physical Exam 2 Vital Signs: Vital Signs: Last Vital Signs Temp 97.8 F 05/10/24 07:25 Pulse 111 H 05/10/24 07:25 Resp 20 05/10/24 07:25 BP 137/85 05/10/24 07:25 Pulse Ox 96 05/10/24 07:25 O2 Del Method Room Air 05/10/24 07:25 BMI result Body Mass Index 32.4 Const: General: cooperative HEENT: Head: Yes normal to inspection Face and sinus: Yes normal facial exam Mouth: Normal oral and palatal mucosa present Teeth and gingiva: d entition normal Eyes: General: appearance normal, both eyes and all related structures P upils: Equal, round and reactive pupils present Resp: Effort & Inspection: normal respiratory effort Cardio: Rate: regular rate Rhythm: regular rhythm GI: Palpation (GI): Soft to palpation and nontender : General: Yes no CVA tenderness Back/Spine/Pelvis: Back: no CVA tenderness Skin: General skin exam: no rashes or lesions noted Neuro: General: moves all extremities Cranial nerves: Yes Equal, round and reactive pupils present Extrem: Other: slight redness lateral lower leg General: Yes normal to inspection Psych: Appearance: grossly normal Objective Data Active Medications Acetaminophen (Acetaminophen 325 Mg Tablet) 650 mg PO Q6H PRN PRN Reason: Pain, Mild (Pain Scale 1-3), fever or headache Last Admin: 05/07/24 14:08 Dose: 650 mg Documented By: RADHA Amlodipine Besylate (Amlodipine Besylate 2.5 Mg Tablet) 2.5 mg PO DAILY [facility]; Protocol Last Admin: 05/10/24 08:14 Dose: 2.5 mg Documented By: TEMO Amlodipine Besylate (Amlodipine Besylate 5 Mg Tablet) 5 mg PO DAILY [facility]; Protocol Last Admin: 05/10/24 08:15 Dose: 5 mg Documented By: TEMO Atorvastatin Calcium (Atorvastatin Calcium 40 Mg Tablet) 40 mg PO BEDTIME [facility] Last Admin: 05/09/24 20:36 Dose: 40 mg Documented By: PRADIP Calcium Carbonate (Calcium Carbonate 750 Mg Tab.Chew) 750 mg PO Q4H PRN PRN Reason: Heartburn Dronedarone (Dronedarone Hcl 400 Mg Tablet) 400 mg PO BID [facility] Last Admin: 05/10/24 08:15 Dose: 400 mg Documented By: TEMO Furosemide (Furosemide 20 Mg Tablet) 20 mg PO DAILY [facility]; Protocol Last Admin: 05/10/24 08:14 Dose: 20 mg Documented By: TEMO Ceftriaxone Sodium 2 gm/ (Sodium Chloride) 50 mls @ 100 mls/hr IV Q24H [facility] Last Infusion: 05/09/24 21:00 Dose: Infused Documented By: PRADIP Losartan Potassium (Losartan Potassium 50 Mg Tablet) 50 mg PO BID [facility]; Protocol Last Admin: 05/10/24 08:14 Dose: 50 mg Documented By: TEMO Magnesium Hydroxide (Milk Of Magnesia 30 Ml Oral.Susp) 30 ml PO DAILY PRN PRN Reason: Constipation Melatonin (Melatonin 3 Mg Tablet) 6 mg PO BEDTIME PRN PRN Reason: Insomnia Metoprolol Tartrate (Metoprolol Tartrate 50 Mg Tablet) 50 mg PO BID [facility]; Protocol Last Admin: 05/10/24 08:14 Dose: 50 mg Documented By: TEMO Nystatin (Nystatin Powder 15 Gm Bottle) 1 appl TOPICAL BID PRN; Protocol PRN Reason: rash Sodium Chloride (0.9 % Sodium Chloride Flush 3 Ml Syringe) 3 ml IVFLUSH QSHIFT [facility] Last Admin: 05/10/24 08:15 Dose: 3 ml Documented By: TEMO Triamcinolone Acetonide (Triamcinolone Acet 0.1 % Cream 15 Gm Tube) 1 appl TOPICAL BID PRN; Protocol PRN Reason: Rash Vitamin D (Cholecalciferol (Vitamin D3) 25 Mcg Tablet) 25 mcg PO BEDTIME [facility] Last Admin: 05/09/24 20:36 Dose: 25 mcg Documented By: PRADIP Warfarin Sodium (Warfarin Sodium 2.5 Mg Tablet) 2.5 mg PO DAILY@1800 [facility] Last Admin: 05/09/24 18:13 Dose: 2.5 mg Documented By: LONI Warfarin Sodium (Warfarin Sodium 5 Mg Tablet) 5 mg PO ONCE ONE Stop: 05/10/24 18:01 Labs 05/10/24 05:56 05/10/24 05:56 Labs: Laboratory Results - last 24 hr 05/09/24 05/10/24 06:35 05:56 MCV 86.7 MCH 30.4 MCHC 35.0 RDW 13.7 Plt Count 197 MPV 9.8 Immature Gran % (Auto) 0.3 Neut % (Auto) 67.9 Lymph % (Auto) 20.5 Day % (Auto) 9.7 Eos % (Auto) 1.2 Baso % (Auto) 0.4 Lymph # (Auto) 1.6 Day # (Auto) 0.7 Eos # (Auto) 0.1 Baso # (Auto) 0.0 Abs Immat Gran (auto) 0.02 Absolute Neuts (auto) 5.2 Absolute Nucleated RBC 0.000 Nucleated RBC % (auto) 0.0 PT 16.0 H INR 1.3 H Anion Gap 12 Estim Creat Clear Calc 61.5 Estimated GFR > 60 Random Glucose 122 H Lactic Acid 1.3 Calcium 9.4 Total Bilirubin 1.1 H AST 19 ALT 14 Alkaline Phosphatase 69 Troponin I High Sens 7.3 D Total Protein 6.4 L Albumin 3.6 Stl C. cayetanensis PCR Not Detected Stool Rotavirus A PCR Not Detected Stl Adenov F 40/41 PCR Not Detected Stool Astrovirus (PCR) Not Detected Stool Campylobacter PCR Not Detected Stool Cryptosporidium PCR Not Detected Stl Sh Tox Pr E STEC PCR Not Detected Stool E coli O157 PCR Not applicable Stl Enterotoxigenic E PCR Not Detected Stool EPEC (PCR) Not Detected Stool EAEC (PCR) Not Detected Stl E. histolytica PCR Not Detected Stool Giardia Lamblia PCR Not Detected Stl P. shigelloides PCR Not Detected Stool Salmonella PCR Not Detected Stool Sapovirus (PCR) Not Detected Stl Shigella/EIEC PCR Not Detected St Y.enterocolitica PCR Not Detected Stool Vibrio (PCR) Not Detected Stl Vibrio cholerae PCR Not Detected Stl Norovirus GI/GII PCR Not Detected C. difficile Tox B Gene NEGATIVE Microbiology Microbiology Results: Microbiology 05/07/24 09:34 Blood Culture - Final Blood - Venous Strep agalactiae (Grp B) 05/07/24 09:34 Blood Culture - Final Blood - Venous Strep agalactiae (Grp B) Assessment and Plan (1) Acute UTI: Status: Acute Plan 83F PMH chronic bilateral lower extremity edema, hld, pafib, htn, presented with fevers sepsis initially thought to be due to GI infection vs UTI, then developed RLE swelling and eythema, cellulitis of RLE more likely source, now complicated by group b strep bacteremia rocephin (initiated 05/07/24) increased to 2gm daily 05/09/24, follow up repeat cultures, echo unremarkable, ID appreciated, plan for 14 day po cephalosporin pafib/flutter with rvr symptomatic when in afib/flutter multaq, lopressor, coumadin, monitor inr s/p dig load cardio eval htn losartan, lopressor, amlodipine hfref lasix dvt prophylaxis - coumadin full code reason for continued hospitalization:aflutter with rvr Quality Stroke Does the patient have a stroke diagnosis?: No VTE Prior VTE?: No VTE Risk Level:: Medical - moderate - high VTE Device Contraindication: Treatment Not Indicated VTE Drug Contraindication: N/A - Med Ordered
--- NOTE | 2024-05-10 10:09 | P.CONCA_ITS ---
History of Present Illness History of Present Illness Date of Service: 05/10/24 Requesting physician: Edward Zimmerman Consult reason: other (Atrial flutter) Chief complaint: sepsis Narrative: I was consulted to see Fredy in cardiology consultation today for recurrent atrial flutter. Patient is well known to me with prior history of longstanding paroxysmal atrial fibrillation has done well with rhythm control approach with dronedarone. Patient also on oral anticoagulation with warfarin. She came in with sepsis with Streptococcus species. She had fever, chills as well as back pain. Workup so far shows Streptococcus bacteremia question related to cellulitis. Echocardiogram did not show any obvious vegetation although transthoracic echoes are often suboptimal. Patient still as sweaty episodes in the morning. INR on admission was 3 her warfarin was held and INR subtherapeutic at this point time. Has been having recurrent episodes of atrial flutter with rapid ventricular response. She said this morning she had rapid heart rate then the heart rate subsided and went back to sinus rhythm and then she had recurrent atrial flutter. Currently when I was seeing her she says she is not that symptomatic but knows that heart is rapid. She is on dronedarone currently. Denies any chest pain. Denies any shortness of breath, orthopnea, PND. Her temperature subsided. ICD count has improved with antibiotics. Review of Systems 2 Constitutional: Constitutional: Denies body ache(s), Denies chills, Denies fever(s) and Reports night sweats Eyes: Eyes: Reports no additional eye complaints Cardiovascular: Cardiovascular: Denies chest pain, Reports rapid heart rate, Denies lightheadedness, Denies Loss of Consciousness, Reports palpitations and Denies dyspnea Respiratory: Respiratory: Denies dyspnea Gastrointestinal: Gastrointestinal: Reports no additional gastrointestinal complaints Genitourinary: Genitourinary: Reports no additional female genitourinary complaints Musculoskeletal: Musculoskeletal: Reports no additional musculoskeletal complaints Neurologic: Reports system reviewed and no additional complaints, except as documented Endocrine: Endocrine: Reports palpitations PMFSH Past Medical History Medical History Cellulitis Osteoporosis Uterine prolapse Rectocele Hyperlipidemia Sinus bradycardia Atrial fibrillation Paroxysmal atrial fibrillation HTN (hypertension) Family History Family History Father CVD (cardiovascular disease) Mother CVD (cardiovascular disease) Diabetes Other Substance use disorder Surgical History Surgical History History of cholecystectomy Hx of tubal ligation Social History Social History Household Members: Children Housing: House Do you presently have visiting nurse or other home services: No Alcohol intake: unknown Patient Tobacco Use Status: Former Tobacco user Years Smoked: 12 +/- Smoked in Last 30 Days: No e-Cigarette/Vaping Use: Never Used Patient Interested in Nicotine Replacement: No Patient Given Instructions on How to Stop Smoking: No Second Hand Smoke Exposure: No Use of substances other than those prescribed or required for medical reasons: No Currently Displaying Signs/Symptoms of Drug Intoxication Withdrawal: No Any prior treatment program specific to substance use: No Have you been hit, kicked, punched, or otherwise hurt by someone within the past year? 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 Current occupational exposures/hazards: No Cognitive needs: No Hearing needs: No Vision needs: Yes Meds Allergies Allergy/AdvReac Type Severity Reaction Status Date / Time codeine [CODEINE] Allergy Intermediate HEADACHES Verified 05/07/24 07:24 hydrochlorothiazide Allergy Intermediate NAUSEA & Verified 05/07/24 07:24 [HYDROCHLOROTHIAZIDE] VOMITING, low K latex [LATEX] Allergy Intermediate RASH Verified 05/07/24 07:24 lisinopril [LISINOPRIL] AdvReac Mild COUGH Verified 05/07/24 07:24 Active Medications: Current Medications Acetaminophen (Acetaminophen 325 Mg Tablet) 650 mg PO Q6H PRN PRN Reason: Pain, Mild (Pain Scale 1-3), fever or headache Last Admin: 05/07/24 14:08 Dose: 650 mg Amlodipine Besylate (Amlodipine Besylate 2.5 Mg Tablet) 2.5 mg PO DAILY [facility]; Protocol Last Admin: 05/10/24 08:14 Dose: 2.5 mg Amlodipine Besylate (Amlodipine Besylate 5 Mg Tablet) 5 mg PO DAILY [facility]; Protocol Last Admin: 05/10/24 08:15 Dose: 5 mg Atorvastatin Calcium (Atorvastatin Calcium 40 Mg Tablet) 40 mg PO BEDTIME [facility] Last Admin: 05/09/24 20:36 Dose: 40 mg Calcium Carbonate (Calcium Carbonate 750 Mg Tab.Chew) 750 mg PO Q4H PRN PRN Reason: Heartburn Dronedarone (Dronedarone Hcl 400 Mg Tablet) 400 mg PO BID [facility] Last Admin: 05/10/24 08:15 Dose: 400 mg Furosemide (Furosemide 20 Mg Tablet) 20 mg PO DAILY [facility]; Protocol Last Admin: 05/10/24 08:14 Dose: 20 mg Ceftriaxone Sodium 2 gm/ (Sodium Chloride) 50 mls @ 100 mls/hr IV Q24H [facility] Last Infusion: 05/09/24 21:00 Dose: Infused Losartan Potassium (Losartan Potassium 50 Mg Tablet) 50 mg PO BID [facility]; Protocol Last Admin: 05/10/24 08:14 Dose: 50 mg Magnesium Hydroxide (Milk Of Magnesia 30 Ml Oral.Susp) 30 ml PO DAILY PRN PRN Reason: Constipation Melatonin (Melatonin 3 Mg Tablet) 6 mg PO BEDTIME PRN PRN Reason: Insomnia Metoprolol Tartrate (Metoprolol Tartrate 50 Mg Tablet) 50 mg PO BID [facility]; Protocol Last Admin: 05/10/24 08:14 Dose: 50 mg Nystatin (Nystatin Powder 15 Gm Bottle) 1 appl TOPICAL BID PRN; Protocol PRN Reason: rash Sodium Chloride (0.9 % Sodium Chloride Flush 3 Ml Syringe) 3 ml IVFLUSH QSHIFT [facility] Last Admin: 05/10/24 08:15 Dose: 3 ml Triamcinolone Acetonide (Triamcinolone Acet 0.1 % Cream 15 Gm Tube) 1 appl TOPICAL BID PRN; Protocol PRN Reason: Rash Vitamin D (Cholecalciferol (Vitamin D3) 25 Mcg Tablet) 25 mcg PO BEDTIME [facility] Last Admin: 05/09/24 20:36 Dose: 25 mcg Warfarin Sodium (Warfarin Sodium 2.5 Mg Tablet) 2.5 mg PO DAILY@1800 [facility] Last Admin: 08/05/24 18:13 Dose: 2.5 mg Warfarin Sodium (Warfarin Sodium 5 Mg Tablet) 5 mg PO ONCE ONE Stop: 05/10/24 18:01 Home Medications ?Medication ?Instructions ?Recorded ?Confirmed ?Last Taken ?Type cholecalciferol (vitamin D3) 25 25 mcg PO BEDTIME 09/17/20 05/07/24 05/06/24 History mcg (1,000 unit) capsule furosemide 20 mg tablet 20 mg PO DAILY edema 05/07/24 05/07/24 Unknown History losartan 50 mg tablet 50 mg PO BID 05/07/24 05/07/24 05/07/24 History triamcinolone acetonide 0.1 % 1 appl topical BID PRN Rash 05/07/24 05/07/24 Unknown History topical cream warfarin 5 mg tablet 2.5 mg PO BEDTIME 05/07/24 05/07/24 05/06/24 History Physical Exam 2 Vital Signs: Vital Signs: Last Vital Signs Temp 97.8 F 05/10/24 07:25 Pulse 111 H 05/10/24 07:25 Resp 20 05/10/24 07:25 BP 137/85 05/10/24 07:25 Pulse Ox 96 05/10/24 07:25 O2 Del Method Room Air 05/10/24 07:25 BMI result Body Mass Index 32.4 Const: General: cooperative, comfortable, no acute distress, well developed, alert, awake and Physically active Nutritional Appearance: well nourished and overweight Orientation/consciousness: patient oriented x3 Limitations: no limitations HEENT: Head: Yes normocephalic and Yes atraumatic Neck: Neck: Yes trachea midline, Yes supple and Yes no JVD Resp: Effort & Inspection: normal respiratory effort Auscultation: clear to auscultation bilaterally Cardio: Jugular venous distension: no JVD Rate: tachycardic Rhythm: a bnormal rhythm regularly irregular Heart sounds: S1 normal heart sound present, S2 normal heart sound present, no click and no gallops GI: Auscultation: normal bowel sounds Skin: General skin exam: no rashes or lesions noted Neuro: General: patient oriented x3 and no focal motor deficits Extrem: General: Yes no clubbing, cyanosis or edema Psych: Appearance: grossly normal Objective Labs and Meds 05/10/24 05:56 05/10/24 05:56 Lab results: Laboratory Results - last 24 hr 05/09/24 05/10/24 06:35 05:56 WBC 7.7 RBC 4.51 Hgb 13.7 Hct 39.1 MCV 86.7 MCH 30.4 MCHC 35.0 RDW 13.7 Plt Count 197 MPV 9.8 Immature Gran % (Auto) 0.3 Neut % (Auto) 67.9 Lymph % (Auto) 20.5 [place] % (Auto) 9.7 Eos % (Auto) 1.2 Baso % (Auto) 0.4 Lymph # (Auto) 1.6 [place] # (Auto) 0.7 Eos # (Auto) 0.1 Baso # (Auto) 0.0 Abs Immat Gran (auto) 0.02 Absolute Neuts (auto) 5.2 Absolute Nucleated RBC 0.000 Nucleated RBC % (auto) 0.0 PT 16.0 H INR 1.3 H Sodium 139 Potassium 3.4 Chloride 108 Carbon Dioxide 22 Anion Gap 12 BUN 10 Creatinine 0.66 Estim Creat Clear Calc 61.5 Estimated GFR > 60 Random Glucose 122 H Lactic Acid 1.3 Calcium 9.4 Total Bilirubin 1.1 H AST 19 ALT 14 Alkaline Phosphatase 69 Troponin I High Sens 7.3 D Total Protein 6.4 L Albumin 3.6 Stl C. cayetanensis PCR Not Detected Stool Rotavirus A PCR Not Detected Stl Adenov F 40/41 PCR Not Detected Stool Astrovirus (PCR) Not Detected Stool Campylobacter PCR Not Detected Stool Cryptosporidium PCR Not Detected Stl Sh Tox Pr E STEC PCR Not Detected Stool E coli O157 PCR Not applicable Stl Enterotoxigenic E PCR Not Detected Stool EPEC (PCR) Not Detected Stool EAEC (PCR) Not Detected Stl E. histolytica PCR Not Detected Stool Giardia Lamblia PCR Not Detected Stl P. shigelloides PCR Not Detected Stool Salmonella PCR Not Detected Stool Sapovirus (PCR) Not Detected Stl Shigella/EIEC PCR Not Detected St Y.enterocolitica PCR Not Detected Stool Vibrio (PCR) Not Detected Stl Vibrio cholerae PCR Not Detected Stl Norovirus GI/GII PCR Not Detected C. difficile Tox B Gene NEGATIVE EKG shows atrial flutter with 2 is to 1 conduction Imaging Radiologist's impression: Impressions Venous Duplex 05/09/24 11:10 IMPRESSION: 1. No evidence of right lower extremity deep venous thrombosis. Right peroneal veins were not visualized. 2. Incidental note of a 4.1 x 1.4 x 2.2 cm lymph node in the right inguinal region. This lymph node demonstrates an echogenic hilum with prominent cortex. This study was presented today May 09, 2024 for interpretation. Stat results provided at this time as requested by referring provider. Assessment and Plan (1) Atrial flutter: Status: Acute Symptomatic rapid atrial flutter in the patient with known prior history of symptomatic atrial fibrillation on Multaq therapy. Continue to still have intermittent episodes of atrial flutter with rapid ventricular response. Continue dronedarone therapy for now. Would start on Cardizem drip for now and hold amlodipine therapy. Continue monitor with full disclosure telemetry. Would switch warfarin to Eliquis 5 mg b.i.d. for more predictable anticoagulation. Patient is willing to try that. If she fails to convert will pursue DAPHNE guided cardioversion tomorrow. Please keep her NPO. Discussed with the patient. She is agreeable. DAPHNE will also help to rule out any obvious intracardiac thrombi or masses or vegetations. Will follow with you Procedures Date of Service Date of Service: 05/10/24
[2024-05-10] MEDS: dilTIAZem HCL 125 MG in 0.9 % Sodium Chloride 100 ML 10 MG IVCONT (10:43)
[2024-05-10] MEDS: Apixaban 5 MG TABLET PO ×2 (10:43→21:22)
[2024-05-10] MEDS: Cholecalciferol (Vitamin D3) 25 MCG TABLET PO (21:21)
[2024-05-10] MEDS: Atorvastatin Calcium 40 MG TABLET PO (21:21)
[2024-05-10] MEDS: cefTRIAXone sodium 2 GM in 0.9 % Sodium Chloride 50 ML IV (21:24)
[2024-05-11] VITALS (12 sets, daily range): BP systolic 98–179; BP diastolic 58–89; PULSE 59–145; RESP 16–21; TEMP 36.1–37.1; O2SAT 96–97
[2024-05-11 07:06] LABS: Hematocrit 41.9 % (37.0-47.0); Hemoglobin 14.4 g/dl (12.0-16.0); Mean Corpuscular HGB Conc 34.4 g/dl (31.0-35.0); Mean Corpuscular Volume 87.3 fL (80.0-98.0); Mean Platelet Volume 9.7 fL (9.4-12.3); Platelet Count 234 X10*3/uL (160-400); Red Cell Distribution Width 13.6 % (11.0-16.0); White Blood Count 7.3 X10*3/uL (4.8-10.8)
[2024-05-11 07:27] LABS: Anion Gap 13 (12-20); Blood Urea Nitrogen 18 mg/dL (9-16); Calcium 9.7 mg/dL (8.4-10.2); Carbon Dioxide 24 mmol/L (22-29); Chloride 107 mmol/L (96-108); Creatinine Clr Calc Pharmacy 55.5; Estimated Glomerular Filt Rate > 60; Glucose Fasting 110 mg/dL (60-99); Potassium 3.7 mmol/L (3.3-5.1); Sodium 140 mmol/L (135-145)
[2024-05-11] MEDS: Apixaban 5 MG TABLET PO ×2 (08:05→21:06)
[2024-05-11] MEDS: 0.9 % Sodium Chloride Flush 3 ML SYRINGE IVFLUSH ×2 (08:07→14:54)
--- NOTE | 2024-05-11 12:03 | PC.NURSE ---
Right hand #20 flushed/patent - arrived with IV from floor.
--- NOTE | 2024-05-11 12:05 | PC.NURSE ---
Pt. belongings: upper partial dentures, watch, cellphone - put in floor chart.
--- NOTE | 2024-05-11 12:08 | MHC.CM.PN ---
Per rounds, pt is not yet medically cleared for DC. DCP is home, self care, she lives with family.
--- NOTE | 2024-05-11 12:42 | P.CONAN_ITS ---
[facility] Active Problems Active Problems: All Active Problems (Updated 05/10/24 @ 10:20 by Carson Angelo MD) Atrial flutter (Acute) Cellulitis (Acute) Acute UTI (Acute) Lower extremity edema (Acute) Upper respiratory infection (Acute) Annual physical exam (Acute) Vaginal abrasion (Acute) Mastitis, acute (Acute) Lightheadedness (Acute) Carotid bruit present (Acute) Pessary maintenance (Acute) Sprain of right ankle (Acute) Flatulence/gas pain/belching (Acute) H. pylori infection (Acute) Hyperglycemia (Acute) Osteoporosis (Acute) Uterine prolapse (Acute) Rectocele (Acute) Hyperlipidemia (Acute) Current use of anticoagulant therapy (Acute) SOB (shortness of breath) on exertion (Acute) Visit for wound check (Acute) History of loop recorder (Acute) Sinus bradycardia (Acute) Paroxysmal atrial fibrillation (Acute) HTN (hypertension) (Acute) Past Medical History Medical History Cellulitis Osteoporosis Uterine prolapse Rectocele Hyperlipidemia Sinus bradycardia Atrial fibrillation Paroxysmal atrial fibrillation HTN (hypertension) Family History Family History Father CVD (cardiovascular disease) Mother CVD (cardiovascular disease) Diabetes Other Substance use disorder Surgical History Surgical History History of cholecystectomy Hx of tubal ligation History of Problems with Anesthesia: No Social History Social History Household Members: Children Housing: House Do you presently have visiting nurse or other home services: No Alcohol intake: unknown Patient Tobacco Use Status: Former Tobacco user Years Smoked: 12 +/- Smoked in Last 30 Days: No e-Cigarette/Vaping Use: Never Used Patient Interested in Nicotine Replacement: No Patient Given Instructions on How to Stop Smoking: No Second Hand Smoke Exposure: No Use of substances other than those prescribed or required for medical reasons: No Currently Displaying Signs/Symptoms of Drug Intoxication Withdrawal: No Any prior treatment program specific to substance use: No Have you been hit, kicked, punched, or otherwise hurt by someone within the past year? If so, by whom?: No Do you feel safe in your current relationship?: No Is there a partner from a previous relationship who is making you feel unsafe now?: No Are you made to feel afraid or neglected: No Are you DNR?: No Advance Directives: No Advance Directives Information Provided: Yes Do you have a plan to hurt others: No Plan Recently lost weight without trying: No How much weight loss: Not applicable Eating poorly because of decreased appetite: No Nutrition screen score: 0 Nutrition Risks: No Nutritional Risk Patient : No : No Poor oral hygiene: No service: No Current occupational status: retired 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 Current occupational exposures/hazards: No Cognitive needs: No Hearing needs: No Vision needs: Yes Meds Allergies Allergy/AdvReac Type Severity Reaction Status Date / Time codeine [CODEINE] Allergy Intermediate HEADACHES Verified 05/07/24 07:24 hydrochlorothiazide Allergy Intermediate NAUSEA & Verified 05/07/24 07:24 [HYDROCHLOROTHIAZIDE] VOMITING, low K latex [LATEX] Allergy Intermediate RASH Verified 05/07/24 07:24 adhesive tape Allergy Mild Rash Verified 05/11/24 12:15 lisinopril [LISINOPRIL] AdvReac Mild COUGH Verified 05/07/24 07:24 Active Medications: Current Medications Acetaminophen (Acetaminophen 325 Mg Tablet) 650 mg PO Q6H PRN PRN Reason: Pain, Mild (Pain Scale 1-3), fever or headache Last Admin: 05/07/24 14:08 Dose: 650 mg Amlodipine Besylate (Amlodipine Besylate 2.5 Mg Tablet) 2.5 mg PO DAILY COUNT INCLUDES THE [facility]; Protocol Last Admin: 05/11/24 08:05 Dose: Not Given Amlodipine Besylate (Amlodipine Besylate 5 Mg Tablet) 5 mg PO DAILY WILDER; Protocol Last Admin: 05/11/24 08:05 Dose: Not Given Apixaban (Apixaban 5 Mg Tablet) 5 mg PO BID WILDER Last Admin: 05/11/24 08:05 Dose: 5 mg Atorvastatin Calcium (Atorvastatin Calcium 40 Mg Tablet) 40 mg PO BEDTIME WILDER Last Admin: 05/10/24 21:21 Dose: 40 mg Calcium Carbonate (Calcium Carbonate 750 Mg Tab.Chew) 750 mg PO Q4H PRN PRN Reason: Heartburn Dronedarone (Dronedarone Hcl 400 Mg Tablet) 400 mg PO BID WILDER Last Admin: 05/11/24 08:06 Dose: Not Given Furosemide (Furosemide 20 Mg Tablet) 20 mg PO DAILY WILDER; Protocol Last Admin: 05/11/24 08:06 Dose: Not Given Ceftriaxone Sodium 2 gm/ (Sodium Chloride) 50 mls @ 100 mls/hr IV Q24H COUNT INCLUDES THE [facility] Last Infusion: 05/10/24 22:30 Dose: Infused Diltiazem HCl 125 mg/ Sodium (Chloride) 125 mls @ 0 mls/hr IVCONT .Q0M COUNT INCLUDES THE [facility]; Protocol Last Titration: 05/10/24 17:59 Dose: 0 mg/hr, 0 mls/hr Losartan Potassium (Losartan Potassium 50 Mg Tablet) 50 mg PO BID WILDER; Protocol Last Admin: 05/11/24 08:06 Dose: Not Given Magnesium Hydroxide (Milk Of Magnesia 30 Ml Oral.Susp) 30 ml PO DAILY PRN PRN Reason: Constipation Melatonin (Melatonin 3 Mg Tablet) 6 mg PO BEDTIME PRN PRN Reason: Insomnia Metoprolol Tartrate (Metoprolol Tartrate 50 Mg Tablet) 50 mg PO BID COUNT INCLUDES THE [facility]; Protocol Last Admin: 05/11/24 08:06 Dose: Not Given Nystatin (Nystatin Powder 15 Gm Bottle) 1 appl TOPICAL BID PRN; Protocol PRN Reason: rash Sodium Chloride (0.9 % Sodium Chloride Flush 3 Ml Syringe) 3 ml IVFLUSH QSHIFT COUNT INCLUDES THE [facility] Last Admin: 05/11/24 08:07 Dose: 3 ml Triamcinolone Acetonide (Triamcinolone Acet 0.1 % Cream 15 Gm Tube) 1 appl TOPICAL BID PRN; Protocol PRN Reason: Rash Vitamin D (Cholecalciferol (Vitamin D3) 25 Mcg Tablet) 25 mcg PO BEDTIME COUNT INCLUDES THE [facility] Last Admin: 05/10/24 21:21 Dose: 25 mcg Home Medications ?Medication ?Instructions ?Recorded ?Confirmed ?Last Taken ?Type cholecalciferol (vitamin D3) 25 25 mcg PO BEDTIME 09/17/20 05/07/24 05/06/24 History mcg (1,000 unit) capsule furosemide 20 mg tablet 20 mg PO DAILY edema 05/07/24 05/07/24 Unknown History losartan 50 mg tablet 50 mg PO BID 05/07/24 05/07/24 05/07/24 History triamcinolone acetonide 0.1 % 1 appl topical BID PRN Rash 05/07/24 05/07/24 Unknown History topical cream warfarin 5 mg tablet 2.5 mg PO BEDTIME 05/07/24 05/07/24 05/06/24 History Exam Height,Weight and Vital Signs: Height 5 ft 1.5 in Weight 79 kg Last Vital Signs Temp 97.4 F 05/11/24 12:00 Pulse 130 H 05/11/24 12:00 Resp 18 05/11/24 12:00 BP 133/58 L 05/11/24 12:00 Pulse Ox 96 05/11/24 12:00 O2 Del Method Room Air 05/11/24 12:00 Pertinent Lab Results Pertinent Lab Results: Laboratory Tests 05/07/24 05/07/24 05/07/24 07:35 07:46 09:34 WBC 26.3 H RBC 4.83 Hgb 14.9 Hct 41.9 MCV 86.7 MCH 30.8 MCHC 35.6 H RDW 13.1 Plt Count 184 MPV 10.4 Immature Gran % (Auto) Cancelled Neut % (Auto) Cancelled Lymph % (Auto) Cancelled [place] % (Auto) Cancelled Eos % (Auto) Cancelled Baso % (Auto) Cancelled Lymph # (Auto) Cancelled [place] # (Auto) Cancelled Eos # (Auto) Cancelled Baso # (Auto) Cancelled Abs Immat Gran (auto) Cancelled Absolute Neuts (auto) Cancelled Absolute Nucleated RBC 0.000 Nucleated RBC % (auto) 0.0 Neutrophils % (Manual) 74 H Band Neutrophils % 13 H Lymphocytes % (Manual) 10 L Monocytes % (Manual) 3 Abs Neuts (Manual) 22.9 H Lymphocytes # (Manual) 2.6 Monocytes # (Manual) 0.8 Platelet Estimate NORMAL Plt Morphology Comment NORMAL RBC Morphology NORMAL Smear Tech's Comments MANUAL DIFF PT INR Sodium 135 Potassium 4.0 Chloride 103 Carbon Dioxide 22 Anion Gap 14 BUN 21 H Creatinine 0.99 Estim Creat Clear Calc 40.1 Estimated GFR 54 Random Glucose 158 H Fasting Glucose Lactic Acid 2.7 H* Lactic Acid F/U @ 2Hr Lactic Acid F/U @ 4Hr Calcium 9.9 D Magnesium 2.0 Total Bilirubin 2.0 H AST 15 ALT 14 Alkaline Phosphatase 95 Troponin I High Sens B-Natriuretic Peptide 144 H Total Protein 7.2 Albumin 4.3 Lipase 19 Urine Color Yellow Urine Appearance Clear Urine pH 6.5 Ur Specific [place] 1.020 Urine Protein Negative Urine Glucose (UA) Negative Urine Ketones Negative Urine Blood Trace H Urine Nitrite Negative Ur Leukocyte Esterase Small (1+) H Urine RBC 6-10 H Urine WBC 6-10 H Ur Squamous Epith Cells 3-5 Urine Bacteria None Seen Hyaline Casts 0-2 Stl C. cayetanensis PCR Stool Rotavirus A PCR Stl Adenov F PCR Stool Astrovirus (PCR) Stool Campylobacter PCR Stool Cryptosporidium PCR Stl Sh Tox Pr E STEC PCR Stool E coli O157 PCR Stl Enterotoxigenic E PCR Stool EPEC (PCR) Stool EAEC (PCR) Stl E. histolytica PCR Stool Giardia Lamblia PCR Stl P. shigelloides PCR Stool Salmonella PCR Stool Sapovirus (PCR) Stl Shigella/EIEC PCR St Y.enterocolitica PCR Stool Vibrio (PCR) Stl Vibrio cholerae PCR Stl Norovirus GI/GII PCR C. difficile Tox B Gene Influenza Type A (PCR) NEGATIVE Influenza Type B (PCR) NEGATIVE RSV RNA Qual (PCR) NEGATIVE SARS-CoV-2 RNA (RT-PCR) NEGATIVE 05/07/24 05/07/24 05/07/24 11:50 14:37 14:38 WBC RBC Hgb Hct MCV MCH MCHC RDW Plt Count MPV Immature Gran % (Auto) Neut % (Auto) Lymph % (Auto) [place] % (Auto) Eos % (Auto) Baso % (Auto) Lymph # (Auto) [place] # (Auto) Eos # (Auto) Baso # (Auto) Abs Immat Gran (auto) Absolute Neuts (auto) Absolute Nucleated RBC Nucleated RBC % (auto) Neutrophils % (Manual) Band Neutrophils % Lymphocytes % (Manual) Monocytes % (Manual) Abs Neuts (Manual) Lymphocytes # (Manual) Monocytes # (Manual) Platelet Estimate Plt Morphology Comment RBC Morphology Smear Tech's Comments PT 37.1 H INR 3.0 H Sodium Potassium Chloride Carbon Dioxide Anion Gap BUN Creatinine Estim Creat Clear Calc Estimated GFR Random Glucose Fasting Glucose Lactic Acid Lactic Acid F/U @ 2Hr 2.9 H* Lactic Acid F/U @ 4Hr 1.3 Calcium Magnesium Total Bilirubin AST ALT Alkaline Phosphatase Troponin I High Sens B-Natriuretic Peptide Total Protein Albumin Lipase Urine Color Urine Appearance Urine pH Ur Specific [place] Urine Protein Urine Glucose (UA) Urine Ketones Urine Blood Urine Nitrite Ur Leukocyte Esterase Urine RBC Urine WBC Ur Squamous Epith Cells Urine Bacteria Hyaline Casts Stl C. cayetanensis PCR Stool Rotavirus A PCR Stl Adenov F PCR Stool Astrovirus (PCR) Stool Campylobacter PCR Stool Cryptosporidium PCR Stl Sh Tox Pr E STEC PCR Stool E coli O157 PCR Stl Enterotoxigenic E PCR Stool EPEC (PCR) Stool EAEC (PCR) Stl E. histolytica PCR Stool Giardia Lamblia PCR Stl P. shigelloides PCR Stool Salmonella PCR Stool Sapovirus (PCR) Stl Shigella/EIEC PCR St Y.enterocolitica PCR Stool Vibrio (PCR) Stl Vibrio cholerae PCR Stl Norovirus GI/GII PCR C. difficile Tox B Gene Influenza Type A (PCR) Influenza Type B (PCR) RSV RNA Qual (PCR) SARS-CoV-2 RNA (RT-PCR) 05/08/24 05/09/24 05/09/24 06:00 06:35 08:06 WBC 14.3 H 8.8 RBC 3.73 L D 4.24 Hgb 11.4 L D 12.6 Hct 33.2 L D 37.6 MCV 89.0 88.7 MCH 30.6 29.7 MCHC 34.3 33.5 RDW 13.9 14.1 Plt Count 129 L D 158 L MPV 10.5 10.3 Immature Gran % (Auto) Neut % (Auto) Lymph % (Auto) [place] % (Auto) Eos % (Auto) Baso % (Auto) Lymph # (Auto) [place] # (Auto) Eos # (Auto) Baso # (Auto) Abs Immat Gran (auto) Absolute Neuts (auto) Absolute Nucleated RBC 0.000 0.000 Nucleated RBC % (auto) 0.0 0.0 Neutrophils % (Manual) Band Neutrophils % Lymphocytes % (Manual) Monocytes % (Manual) Abs Neuts (Manual) Lymphocytes # (Manual) Monocytes # (Manual) Platelet Estimate Plt Morphology Comment RBC Morphology Smear Tech's Comments PT 38.1 H 18.3 H D INR 3.1 H 1.5 H Sodium 137 Potassium 3.8 Chloride 111 H Carbon Dioxide 22 Anion Gap 8 L BUN 15 Creatinine 0.67 Estim Creat Clear Calc 60.5 Estimated GFR > 60 Random Glucose Fasting Glucose 94 Lactic Acid Lactic Acid F/U @ 2Hr Lactic Acid F/U @ 4Hr Calcium 9.0 D Magnesium 1.9 Total Bilirubin AST ALT Alkaline Phosphatase Troponin I High Sens B-Natriuretic Peptide Total Protein Albumin Lipase Urine Color Urine Appearance Urine pH Ur Specific [place] Urine Protein Urine Glucose (UA) Urine Ketones Urine Blood Urine Nitrite Ur Leukocyte Esterase Urine RBC Urine WBC Ur Squamous Epith Cells Urine Bacteria Hyaline Casts Stl C. cayetanensis PCR Not Detected Stool Rotavirus A PCR Not Detected Stl Adenov F 40/41 PCR Not Detected Stool Astrovirus (PCR) Not Detected Stool Campylobacter PCR Not Detected Stool Cryptosporidium PCR Not Detected Stl Sh Tox Pr E STEC PCR Not Detected Stool E coli O157 PCR Not applicable Stl Enterotoxigenic E PCR Not Detected Stool EPEC (PCR) Not Detected Stool EAEC (PCR) Not Detected Stl E. histolytica PCR Not Detected Stool Giardia Lamblia PCR Not Detected Stl P. shigelloides PCR Not Detected Stool Salmonella PCR Not Detected Stool Sapovirus (PCR) Not Detected Stl Shigella/EIEC PCR Not Detected St Y.enterocolitica PCR Not Detected Stool Vibrio (PCR) Not Detected Stl Vibrio cholerae PCR Not Detected Stl Norovirus GI/GII PCR Not Detected C. difficile Tox B Gene NEGATIVE Influenza Type A (PCR) Influenza Type B (PCR) RSV RNA Qual (PCR) SARS-CoV-2 RNA (RT-PCR) 05/09/24 05/10/24 05/11/24 08:07 05:56 06:40 WBC 7.7 7.3 RBC 4.51 4.80 Hgb 13.7 14.4 Hct 39.1 41.9 MCV 86.7 87.3 MCH 30.4 30.0 MCHC 35.0 34.4 RDW 13.7 13.6 Plt Count 197 234 MPV 9.8 9.7 Immature Gran % (Auto) 0.3 Neut % (Auto) 67.9 Lymph % (Auto) 20.5 [place] % (Auto) 9.7 Eos % (Auto) 1.2 Baso % (Auto) 0.4 Lymph # (Auto) 1.6 [place] # (Auto) 0.7 Eos # (Auto) 0.1 Baso # (Auto) 0.0 Abs Immat Gran (auto) 0.02 Absolute Neuts (auto) 5.2 Absolute Nucleated RBC 0.000 0.000 Nucleated RBC % (auto) 0.0 0.0 Neutrophils % (Manual) Band Neutrophils % Lymphocytes % (Manual) Monocytes % (Manual) Abs Neuts (Manual) Lymphocytes # (Manual) Monocytes # (Manual) Platelet Estimate Plt Morphology Comment RBC Morphology Smear Tech's Comments PT 16.0 H INR 1.3 H Sodium 140 139 140 Potassium 3.5 3.4 3.7 Chloride 109 H 108 107 Carbon Dioxide 23 22 24 Anion Gap 12 12 13 BUN 11 10 18 H Creatinine 0.71 0.66 0.73 Estim Creat Clear Calc 57.1 61.5 55.5 Estimated GFR > 60 > 60 > 60 Random Glucose 122 H Fasting Glucose 107 H 110 H Lactic Acid 1.3 Lactic Acid F/U @ 2Hr Lactic Acid F/U @ 4Hr Calcium 9.6 D 9.4 9.7 Magnesium 2.0 Total Bilirubin 1.1 H AST 19 ALT 14 Alkaline Phosphatase 69 Troponin I High Sens 7.3 D B-Natriuretic Peptide Total Protein 6.4 L Albumin 3.6 Lipase Urine Color Urine Appearance Urine pH Ur Specific [place] Urine Protein Urine Glucose (UA) Urine Ketones Urine Blood Urine Nitrite Ur Leukocyte Esterase Urine RBC Urine WBC Ur Squamous Epith Cells Urine Bacteria Hyaline Casts Stl C. cayetanensis PCR Stool Rotavirus A PCR Stl Adenov F 40/41 PCR Stool Astrovirus (PCR) Stool Campylobacter PCR Stool Cryptosporidium PCR Stl Sh Tox Pr E STEC PCR Stool E coli O157 PCR Stl Enterotoxigenic E PCR Stool EPEC (PCR) Stool EAEC (PCR) Stl E. histolytica PCR Stool Giardia Lamblia PCR Stl P. shigelloides PCR Stool Salmonella PCR Stool Sapovirus (PCR) Stl Shigella/EIEC PCR St Y.enterocolitica PCR Stool Vibrio (PCR) Stl Vibrio cholerae PCR Stl Norovirus GI/GII PCR C. difficile Tox B Gene Influenza Type A (PCR) Influenza Type B (PCR) RSV RNA Qual (PCR) SARS-CoV-2 RNA (RT-PCR) Airway Mallampati Class: II TM Dist: >3cm Neck ROM: Limited Loose/Missing/Broken Teeth: Yes and Upper Heart: irreg irregular Lungs: CTA Assessment and Plan Assessment Anesthesia Assessment: Anesthesia Plan Discussed and Chart Reviewed Final Anesthetic Review History of Problems with Anesthesia: No NPO: Yes ASA Class: III Final Preanesthetic Review: Meds/Allgs Chart Reviewed, Consent Obtained/Reviewed and Anes Risks/Benef Reviewed Patient Risk: Intermediate Procedure Risk: Low Anesthetic Plan Anesthetic Plan: MAC: Disposition: Standard PACU
--- NOTE | 2024-05-11 12:55 | CA_ITS ---
Transesophageal Echocardiogram Patient (Last, First, Middle): ToddMarch, Gender: Female Date of : 1940 Age: 83 Procedure Date: 05/11/2024 Procedure Type: Transesophageal Ech[place]ogram [place] [facility] [place]: 154.94 cm Weight: 78.93 kg BSA: 1.78 m2 Heart Rate: 142 bpm Accounts Receivable Accountant: [id number] Referring MD: Carson Angelo MD Handic[employer]: Carson Angelo MD Symptoms: Pre-cardioversion Conclusion: ??? 1. No intracardiac thrombi, masses, vegetations 2. Low normal LV ejection fraction of 50-55% with mild LVH 3. Severe left atrial enlargement 4. Cardiac valvular Dopplers within acceptable limits 5. No gross pericardial abnormality next 6. No clear evidence of intracardiac shunting Findings Procedure Information Consent was obtained prior to the procedure. Pre DAPHNE oral cavity was checked and revealed mild overcrowding. The adult 3D probe was passed with no difficulty. This was a technically good study. Left Ventricle Normal left ventricular cavity size. There is mildly increased left ventricular wall thickness. The left ventricular systolic function is low normal. The visually estimated ejection fraction is between 50-55%. Diastolic function is indeterminate on the basis of available data. overall difficult to evaluate LV systolic function due to rapid heart rate Right Ventricle Normal right ventricular cavity size and systolic function. Atria The left atrium is severely dilated. There is no evidence of a patent foramen ovale. There is no evidence of thrombus or mass in the left atrium. no significant masses or thrombi seen with the left atrium left atrial appendage. There is more formation seen within left atrium. The left upper, right upper and right lower pulmonary vein drained normally into the left atrium. Left atrial appendage ejection velocities diminished. The right atrium is mildly dilated. There is no evidence of thrombus or mass in the right atrium. IVC and SVC drain normally to the right atrium. Right atrial appendage was free of any thrombus. Aortic Valve Normal aortic valve structure and function. There is no aortic valve stenosis. There is no aortic valve regurgitation. Mitral Valve Normal mitral valve structure and function. There is trace mitral valve regurgitation. There is no mitral valve stenosis. Pulmonic Valve The pulmonic valve is likely normal. There is trace to mild pulmonic valve regurgitation. Tricuspid Valve Normal tricuspid valve structure. Tricuspid regurgitation envelope is inadequate for calculation of right ventricular systolic pressure. Great Vessels All visible segments of the aorta are normal in size. The visualized portions of the pulmonary artery and branches are normal. Venous The inferior vena cava is normal in size and collapses greater than 50% with inspiration. Pericardium/Pleural There is no evidence of pericardial effusion. Updated by Carson Angelo on 03:34 PM with Status of Final Carson Angelo MD electronically signed on 06/03/2024 3:34:38 PM with status of Final
--- NOTE | 2024-05-11 12:55 | MHC.SHP ---
Pre-Procedural Eval Section A - 24 Hr Update-Section A only Date of Service: 05/11/24 The patient is an INPATIENT: Yes Changes since office visit: Yes Patient answered all questions; No Cold of Flu in the past 2 weeks, No New Medical Problems and No Changes in Medication The patient has been examined within 24 hours of the surgical procedure. The History & Physical has been completed within 30 days and I have reviewed it.: Yes Section B - Complete if H&P > 30 days Chief Complaint: sepsis Allergies: Allergies Allergy/AdvReac Type Severity Reaction Status Date / Time codeine [CODEINE] Allergy Intermediate HEADACHES Verified 05/07/24 07:24 hydrochlorothiazide Allergy Intermediate NAUSEA & Verified 05/07/24 07:24 [HYDROCHLOROTHIAZIDE] VOMITING, low K latex [LATEX] Allergy Intermediate RASH Verified 05/07/24 07:24 adhesive tape Allergy Mild Rash Verified 05/11/24 12:15 lisinopril [LISINOPRIL] AdvReac Mild COUGH Verified 05/07/24 07:24 Plan I have reviewed the history and physical and performed a pertinent physical examination on my patient. No changes have occurred unless specified. Time Spent With Patient Time: Total time managing care of this patient today ____ minutes.
--- NOTE | 2024-05-11 13:47 | HO.CARDIVERS ---
Cardioversion Procedure Note Cardioversion Date of Procedure: Today Ordering Provider: Ish Angelo Performing Provider: Ish Angelo Indication for Procedure: Persistent atrial flutter with rapid ventricular response Pre-Op Diagnosis: Same Post-Op Diagnosis: Normal sinus rhythm Performed with Transesophageal Echo: Yes DAPHNE findings (if DAPHNE Performed): Dictated separately History: See my consult note Consent: Verbal and Written consent was obtained from the patient before starting and after confirming oral anticoagulation use. The patient was made aware of the risk of synchronized cardioversion including benefits and alternatives Procedure: After consent obtained, cardioversion pads were attached in anteroposterior configuration and the patient was sedated by the anesthesia team. Once adequate sedation achieved, 200 joules of biphasic synchronized energy in anteroposterior configuration Complications: None Impression: Successful conversion to sinus rhythm Recommendations: 1. Twelve lead EKG 2. Will need amiodarone drip 3. Continue full oral anticoagulation with Eliquis
[2024-05-11] MEDS: Amiodarone/Dextrose 150 MG/100 ML PLAST..BAG 300 MG IV (13:53)
[2024-05-11] MEDS: Amiodarone HCL 900 MG in 0.9 % Sodium Chloride 500 ML 34.53 MG IVCONT (14:43)
--- NOTE | 2024-05-11 15:47 | P.PNIM_ITS ---
Subjective Subjective Date of Service: 05/11/24 Interval History: seen and evaluated this morning rate controlled , still in Afib Cardioverted and started on IV Amiodarone drip Review of Systems Review of Systems: Yes all other systems are reviewed and are negative Physical Exam 2 Vital Signs: Vital Signs: Last Vital Signs Temp 97.7 F 05/11/24 15:07 Pulse 69 05/11/24 15:07 Resp 20 05/11/24 15:07 BP 133/73 05/11/24 15:07 Pulse Ox 97 05/11/24 15:07 O2 Del Method Room Air 05/11/24 15:07 O2 Flow Rate 6 05/11/24 13:35 BMI result Body Mass Index 32.4 Const: Other: Constitutional : Awake, interactive, not in distress Neck : Normal inspection, Supple Cardiovascular : RRR, no JVP, no lower extremity edema Respiratory : good bilateral air entry, no crackles, wheezes or rhonchi Gastrointestinal: soft, lax, Normal bowel sounds, Non tender Skin : Warm, Dry Neurological : Alert & oriented x3, No focal deficit Objective Data Active Medications Acetaminophen (Acetaminophen 325 Mg Tablet) 650 mg PO Q6H PRN PRN Reason: Pain, Mild (Pain Scale 1-3), fever or headache Last Admin: 05/07/24 14:08 Dose: 650 mg Documented By: RADHA Acetaminophen (Acetaminophen 325 Mg Tablet) 650 mg PO ONCE PRN PRN Reason: Pain, Mild (Pain Scale 1-3) Stop: 05/11/24 18:46 Albuterol/Ipratropium (Albuterol/Iprat 2.5/0.5mg 3 Ml Ampul.Neb) 3 ml INHALE ONCE PRN PRN Reason: Bronchospasm/wheezing Stop: 05/11/24 18:46 Amlodipine Besylate (Amlodipine Besylate 2.5 Mg Tablet) 2.5 mg PO DAILY [facility]; Protocol Last Admin: 05/11/24 08:05 Dose: Not Given Documented By: SALOMÓN Non-Admin Reason: Physician Held Med Amlodipine Besylate (Amlodipine Besylate 5 Mg Tablet) 5 mg PO DAILY [facility]; Protocol Last Admin: 05/11/24 08:05 Dose: Not Given Documented By: SALOMÓN Non-Admin Reason: Physician Held Med Apixaban (Apixaban 5 Mg Tablet) 5 mg PO BID [facility] Last Admin: 05/11/24 08:05 Dose: 5 mg Documented By: SALOMÓN Atorvastatin Calcium (Atorvastatin Calcium 40 Mg Tablet) 40 mg PO BEDTIME [facility] Last Admin: 05/10/24 21:21 Dose: 40 mg Documented By: RYAN Calcium Carbonate (Calcium Carbonate 750 Mg Tab.Chew) 750 mg PO Q4H PRN PRN Reason: Heartburn Furosemide (Furosemide 20 Mg Tablet) 20 mg PO DAILY [facility]; Protocol Last Admin: 05/11/24 08:06 Dose: Not Given Documented By: SALOMÓN Non-Admin Reason: Physician Held Med Ceftriaxone Sodium 2 gm/ (Sodium Chloride) 50 mls @ 100 mls/hr IV Q24H [facility] Last Infusion: 05/10/24 22:30 Dose: Infused Documented By: RYAN Diltiazem HCl 125 mg/ Sodium (Chloride) 125 mls @ 0 mls/hr IVCONT .Q0M [facility]; Protocol Last Titration: 05/10/24 17:59 Dose: 0 mg/hr, 0 mls/hr Documented By: SALOMÓN Amiodarone HCl 900 mg/ Sodium (Chloride) 518 mls @ 34.533 mls/hr IVCONT .Q15H1M [facility]; Protocol Last Admin: 05/11/24 14:43 Dose: 1 mg/min, 34.53 mls/hr Documented By: YASMIN Losartan Potassium (Losartan Potassium 50 Mg Tablet) 50 mg PO BID [facility]; Protocol Last Admin: 05/11/24 08:06 Dose: Not Given Documented By: SALOMÓN Non-Admin Reason: Physician Held Med Magnesium Hydroxide (Milk Of Magnesia 30 Ml Oral.Susp) 30 ml PO DAILY PRN PRN Reason: Constipation Melatonin (Melatonin 3 Mg Tablet) 6 mg PO BEDTIME PRN PRN Reason: Insomnia Metoprolol Tartrate (Metoprolol Tartrate 50 Mg Tablet) 50 mg PO BID [facility]; Protocol Last Admin: 05/11/24 08:06 Dose: Not Given Documented By: SALOMÓN Non-Admin Reason: Physician Held Med Nystatin (Nystatin Powder 15 Gm Bottle) 1 appl TOPICAL BID PRN; Protocol PRN Reason: rash Ondansetron HCl (Ondansetron Hcl 4 Mg/2 Ml Vial) 4 mg IVPUSH ONCE PRN PRN Reason: Nausea and Vomiting Stop: 05/11/24 18:46 Sodium Chloride (0.9 % Sodium Chloride Flush 3 Ml Syringe) 3 ml IVFLUSH QSHIFT [facility] Last Admin: 05/11/24 14:54 Dose: 3 ml Documented By: YASMIN Triamcinolone Acetonide (Triamcinolone Acet 0.1 % Cream 15 Gm Tube) 1 appl TOPICAL BID PRN; Protocol PRN Reason: Rash Vitamin D (Cholecalciferol (Vitamin D3) 25 Mcg Tablet) 25 mcg PO BEDTIME [facility] Last Admin: 05/10/24 21:21 Dose: 25 mcg Documented By: RYAN Labs 05/11/24 06:40 05/11/24 06:40 Labs: Laboratory Results - last 24 hr 05/11/24 06:40 MCV 87.3 MCH 30.0 MCHC 34.4 RDW 13.6 Plt Count 234 MPV 9.7 Absolute Nucleated RBC 0.000 Nucleated RBC % (auto) 0.0 Anion Gap 13 Estim Creat Clear Calc 55.5 Estimated GFR > 60 Fasting Glucose 110 H Calcium 9.7 Magnesium 2.0 Microbiology Microbiology Results: Microbiology 05/09/24 08:07 Blood Culture - Preliminary Blood - Venous No growth after 48 hours. 05/09/24 08:06 Blood Culture - Preliminary Blood - Venous No growth after 48 hours. Assessment and Plan (1) Cellulitis: Status: Acute (2) Acute UTI: Status: Acute (3) Lower extremity edema: Status: Acute (4) Atrial flutter: Status: Acute Plan 83F PMH chronic bilateral lower extremity edema, hld, pafib, htn, presented with fevers sepsis 2/2 RLE cellulitis complicated by group b strep bacteremia rocephin (initiated 05/07/24) increased to 2gm daily 05/09/24, follow up repeat cultures, echo unremarkable, ID appreciated, plan for 14 day po cephalosporin pafib/flutter with rvr rate controlled Post Cardioversion Load with IV Amiodarone drip DC multaq, Continue lopressor Change Warfarin to Eliquis cardiology input appreciated htn losartan, lopressor, amlodipine hfref lasix dvt prophylaxis - coumadin full code reason for continued hospitalization:aflutter with rvr on AMiodarone drip pending cardiac clearance. Quality Stroke Does the patient have a stroke diagnosis?: No VTE Prior VTE?: No VTE Risk Level:: Medical - moderate - high VTE Device Contraindication: Treatment Not Indicated VTE Drug Contraindication: N/A - Med Ordered
[2024-05-11] MEDS: Losartan Potassium 50 MG TABLET PO (21:05)
[2024-05-11] MEDS: Atorvastatin Calcium 40 MG TABLET PO (21:05)
[2024-05-11] MEDS: Cholecalciferol (Vitamin D3) 25 MCG TABLET PO (21:06)
[2024-05-11] MEDS: Metoprolol Tartrate 25 MG TABLET PO (21:06)
[2024-05-11] MEDS: cefTRIAXone sodium 2 GM in 0.9 % Sodium Chloride 50 ML IV (23:40)
[2024-05-12] VITALS (8 sets, daily range): BP systolic 128–177; BP diastolic 66–86; PULSE 59–145; RESP 16–20; TEMP 36.1–36.8; O2SAT 96–97
--- NOTE | 2024-05-12 04:33 | PC.NURSE ---
pt rhythm noted aflutter with elevated rate at times, pt sleeping when elevated rate noted. Remains on amiodarone gtt at 0.5 mg/min. aware.
[2024-05-12 06:29] LABS: Hematocrit 38.7 % (37.0-47.0); Hemoglobin 13.5 g/dl (12.0-16.0); Mean Corpuscular HGB Conc 34.9 g/dl (31.0-35.0); Mean Corpuscular Hemoglobin 30.3 pg (27.0-33.0); Mean Corpuscular Volume 86.8 fL (80.0-98.0); Mean Platelet Volume 9.6 fL (9.4-12.3); Platelet Count 218 X10*3/uL (160-400); Red Blood Count 4.46 X10*6/uL (4.20-5.50); Red Cell Distribution Width 13.4 % (11.0-16.0); White Blood Count 9.5 X10*3/uL (4.8-10.8)
[2024-05-12 07:04] LABS: Anion Gap 13 (12-20); Blood Urea Nitrogen 17 mg/dL (9-16); Calcium 9.2 mg/dL (8.4-10.2); Carbon Dioxide 21 mmol/L (22-29); Chloride 109 mmol/L (96-108); Creatinine Clr Calc Pharmacy 55.5; Estimated Glomerular Filt Rate > 60; Glucose Random 109 mg/dL (60-115); Potassium 3.5 mmol/L (3.3-5.1); Sodium 139 mmol/L (135-145)
--- NOTE | 2024-05-12 08:01 | HO.POSTANES ---
Post Anesthesia Evaluation Post Anesthesia Evaluation Date of Service: 05/12/24 Vital Signs: Vital Signs Temp Pulse Resp BP Pulse Ox O2 Del Method 05/12/24 07:14 97.1 F 129 H 16 157/86 H 97 Room Air 05/12/24 03:39 96.9 F 124 H 20 149/82 H 97 Room Air 05/12/24 00:44 145 H 162/79 H 05/11/24 23:49 97.4 F 59 21 H 179/79 H 96 Room Air 05/11/24 21:06 145/65 H 05/11/24 21:05 145/65 H Anesthesia: Monitored Mental Status: Sedated (asleep) Pain Control: Satisfactory Nausea/Vomiting: None Hydration: Adequate Anesthesia-Related Issues: No Anes. Related Issues
[2024-05-12] MEDS: Metoprolol Tartrate 5 MG/5 ML VIAL IVPUSH (08:58)
[2024-05-12] MEDS: Apixaban 5 MG TABLET PO ×2 (08:59→20:05)
[2024-05-12] MEDS: Furosemide 20 MG TABLET PO (08:59)
[2024-05-12] MEDS: Metoprolol Tartrate 50 MG TABLET PO ×2 (08:59→20:05)
[2024-05-12] MEDS: 0.9 % Sodium Chloride Flush 3 ML SYRINGE IVFLUSH ×4 (09:00→20:07)
--- NOTE | 2024-05-12 10:34 | PM.PNCARD ---
Subjective Subjective Date of Service: 05/12/24 Principal diagnosis: Atrial flutter Review of Systems Constitutional: Reports no additional constitutional complaints Cardiovascular: Denies chest pain, Denies lightheadedness, Reports palpitations and Denies dyspnea Respiratory: Reports no additional respiratory complaints and Denies dyspnea Musculoskeletal: Reports no additional musculoskeletal complaints Psychiatric: Reports no additional psychiatric complaints Endocrine: Reports palpitations Physical Exam Vital Signs: Last Vital Signs Temp 97.1 F 05/12/24 07:14 Pulse 138 H 05/12/24 08:59 Resp 16 05/12/24 07:14 BP 128/66 05/12/24 08:59 Pulse Ox 97 05/12/24 07:14 O2 Del Method Room Air 05/12/24 07:14 O2 Flow Rate 6 05/11/24 13:35 BMI result Body Mass Index 32.4 Const General: cooperative, comfortable, no acute distress, well developed, alert, awake and Physically active Nutritional Appearance: well nourished and overweight Orientation/consciousness: patient oriented x3 Limitations: no limitations HEENT Head: Yes normocephalic and Yes atraumatic Neck Neck: Yes trachea midline, Yes supple and Yes no JVD Resp Effort & Inspection: normal respiratory effort Auscultation: clear to auscultation bilaterally Cardio Jugular venous distension: no JVD Rate: regular rate Rhythm: regular rhythm Heart sounds: S1 normal heart sound present, S2 normal heart sound present, no click and no gallops GI Auscultation: normal bowel sounds Skin General skin exam: no rashes or lesions noted Neuro General: patient oriented x3 and no focal motor deficits Extrem General: Yes no clubbing, cyanosis or edema Psych Appearance: grossly normal Objective Labs and Meds 05/12/24 06:09 05/12/24 06:09 Lab results: Laboratory Results - last 24 hr 05/12/24 06:09 WBC 9.5 RBC 4.46 Hgb 13.5 Hct 38.7 MCV 86.8 MCH 30.3 MCHC 34.9 RDW 13.4 Plt Count 218 MPV 9.6 Absolute Nucleated RBC 0.000 Nucleated RBC % (auto) 0.0 Sodium 139 Potassium 3.5 Chloride 109 H Carbon Dioxide 21 L Anion Gap 13 BUN 17 H Creatinine 0.73 Estim Creat Clear Calc 55.5 Estimated GFR > 60 Random Glucose 109 Calcium 9.2 Progress Note: A&P Assessment and plan (1) Atrial flutter: Status: Acute Assessment and Plan: Atrial flutter intermittent, status post cardioversion yesterday. Patient converted promptly although had recurrent atrial flutter., currently suppressed on amiodarone as well as metoprolol therapy. Continue the same. Likely to have recurrent atrial flutter given that she is not loaded with amiodarone. Can switch to p.o. amiodarone 400 mg b.i.d. for 2 weeks. Continue metoprolol as well. She does have prior history of sinus bradycardia will closely follow as outpatient. If by tomorrow her rate remains adequately controlled, may discharge. Will follow-up in near future in the office. If atrial flutter despite loading remains recurrent may need ablation. This was discussed with her. Continue full oral anticoagulation with Xarelto. Will follow with you Time Spent With Patient Time: Total time managing care of this patient today ____ minutes. Progress Note: Quality Stroke Does the patient have a stroke diagnosis?: No Procedures Date of Service Date of Service: 05/12/24
[2024-05-12] MEDS: Amiodarone HCL 200 MG TABLET 400 MG PO ×2 (11:34→20:05)
--- NOTE | 2024-05-12 15:17 | HO.PM.IMPN ---
Subjective Subjective Date of Service: 05/12/24 Interval History: seen and evaluated this morning rate controlled , converted back to sinus this morning after going into Afib overnight No other overnight events Review of Systems Review of Systems: Yes all other systems are reviewed and are negative Physical Exam Vital Signs: Vital Signs: Last Vital Signs Temp 98.2 F 05/12/24 15:05 Pulse 78 05/12/24 15:05 Resp 20 05/12/24 15:05 BP 177/86 H 05/12/24 15:05 Pulse Ox 96 05/12/24 15:05 O2 Del Method Room Air 05/12/24 15:05 O2 Flow Rate 6 05/11/24 13:35 BMI result Body Mass Index 32.4 Const: Other: Constitutional : Awake, interactive, not in distress Neck : Normal inspection, Supple Cardiovascular : RRR, no JVP, no lower extremity edema Respiratory : good bilateral air entry, no crackles, wheezes or rhonchi Gastrointestinal: soft, lax, Normal bowel sounds, Non tender Skin : Warm, Dry Neurological : Alert & oriented x3, No focal deficit Objective Data Active Medications Acetaminophen (Acetaminophen 325 Mg Tablet) 650 mg PO Q6H PRN PRN Reason: Pain, Mild (Pain Scale 1-3), fever or headache Last Admin: 05/07/24 14:08 Dose: 650 mg Documented By: RADHA Amiodarone HCl (Amiodarone Hcl 200 Mg Tablet) 400 mg PO BID [facility] Last Admin: 05/12/24 11:34 Dose: 400 mg Documented By: DAVID Amlodipine Besylate (Amlodipine Besylate 2.5 Mg Tablet) 2.5 mg PO DAILY [facility]; Protocol Last Admin: 05/11/24 08:05 Dose: Not Given Documented By: SALOMÓN Non-Admin Reason: Physician Held Med Amlodipine Besylate (Amlodipine Besylate 5 Mg Tablet) 5 mg PO DAILY [facility]; Protocol Last Admin: 05/11/24 08:05 Dose: Not Given Documented By: SALOMÓN Non-Admin Reason: Physician Held Med Apixaban (Apixaban 5 Mg Tablet) 5 mg PO BID [facility] Last Admin: 05/12/24 08:59 Dose: 5 mg Documented By: DAVID Atorvastatin Calcium (Atorvastatin Calcium 40 Mg Tablet) 40 mg PO BEDTIME [facility] Last Admin: 05/11/24 21:05 Dose: 40 mg Documented By: VALENTINA Calcium Carbonate (Calcium Carbonate 750 Mg Tab.Chew) 750 mg PO Q4H PRN PRN Reason: Heartburn Furosemide (Furosemide 20 Mg Tablet) 20 mg PO DAILY [facility]; Protocol Last Admin: 05/12/24 08:59 Dose: 20 mg Documented By: DAVID Ceftriaxone Sodium 2 gm/ (Sodium Chloride) 50 mls @ 100 mls/hr IV Q24H [facility] Last Infusion: 05/12/24 00:10 Dose: Infused Documented By: VALENTINA Losartan Potassium (Losartan Potassium 50 Mg Tablet) 50 mg PO BID [facility]; Protocol Last Admin: 05/11/24 21:05 Dose: 50 mg Documented By: VALENTINA Magnesium Hydroxide (Milk Of Magnesia 30 Ml Oral.Susp) 30 ml PO DAILY PRN PRN Reason: Constipation Melatonin (Melatonin 3 Mg Tablet) 6 mg PO BEDTIME PRN PRN Reason: Insomnia Metoprolol Tartrate (Metoprolol Tartrate 50 Mg Tablet) 50 mg PO BID [facility]; Protocol Nystatin (Nystatin Powder 15 Gm Bottle) 1 appl TOPICAL BID PRN; Protocol PRN Reason: rash Sodium Chloride (0.9 % Sodium Chloride Flush 3 Ml Syringe) 3 ml IVFLUSH QSHIFT [facility] Last Admin: 05/12/24 09:00 Dose: 3 ml Documented By: DAVID Triamcinolone Acetonide (Triamcinolone Acet 0.1 % Cream 15 Gm Tube) 1 appl TOPICAL BID PRN; Protocol PRN Reason: Rash Vitamin D (Cholecalciferol (Vitamin D3) 25 Mcg Tablet) 25 mcg PO BEDTIME [facility] Last Admin: 05/11/24 21:06 Dose: 25 mcg Documented By: VALENTINA Labs 05/12/24 06:09 05/12/24 06:09 Labs: Laboratory Results - last 24 hr 05/12/24 06:09 MCV 86.8 MCH 30.3 MCHC 34.9 RDW 13.4 Plt Count 218 MPV 9.6 Absolute Nucleated RBC 0.000 Nucleated RBC % (auto) 0.0 Anion Gap 13 Estim Creat Clear Calc 55.5 Estimated GFR > 60 Random Glucose 109 Calcium 9.2 Assessment and Plan (1) Atrial flutter: Status: Acute (2) Cellulitis: Status: Acute Plan 83F PMH chronic bilateral lower extremity edema, hld, pafib, htn, presented with fevers sepsis 2/2 RLE cellulitis complicated by group b strep bacteremia rocephin (initiated 05/07/24) increased to 2gm daily 05/09/24, follow up repeat cultures, echo unremarkable, ID appreciated, plan for 14 day po cephalosporin Paroxysmal afib/flutter with rvr went into Afib w RvR overnight, now rate controlled, converted back to Sinus this morning after Cardioversion change IV Amiodarone to PO DC multaq, Increase lopressor to 50mg bid Change Warfarin to Eliquis cardiology input appreciated htn losartan, lopressor, amlodipine hfref lasix dvt prophylaxis - coumadin full code reason for continued hospitalization:aflutter with rvr on AMiodarone and closem onitoring on Tele overnight Quality Stroke Does the patient have a stroke diagnosis?: No VTE Prior VTE?: No VTE Risk Level:: Medical - moderate - high VTE Device Contraindication: Treatment Not Indicated VTE Drug Contraindication: N/A - Med Ordered
[2024-05-12] MEDS: Losartan Potassium 25 MG TABLET PO ×2 (15:42→20:04)
[2024-05-12] MEDS: amLODIPine Besylate 5 MG TABLET PO (15:42)
[2024-05-12] MEDS: Acetaminophen 325 MG TABLET 650 MG PO (17:20)
[2024-05-12] MEDS: Cholecalciferol (Vitamin D3) 25 MCG TABLET PO (20:05)
[2024-05-12] MEDS: Atorvastatin Calcium 40 MG TABLET PO (20:05)
[2024-05-12] MEDS: cefTRIAXone sodium 2 GM in 0.9 % Sodium Chloride 50 ML IV (20:06)
[2024-05-13] VITALS (10 sets, daily range): BP systolic 116–142; BP diastolic 58–76; PULSE 65–136; RESP 16–20; TEMP 36.1–37; O2SAT 94–98
[2024-05-13 06:48] LABS: Anion Gap 12 (12-20); Blood Urea Nitrogen 13 mg/dL (9-16); Calcium 9.4 mg/dL (8.4-10.2); Carbon Dioxide 23 mmol/L (22-29); Chloride 107 mmol/L (96-108); Creatinine Clr Calc Pharmacy 57.1; Estimated Glomerular Filt Rate > 60; Glucose Random 114 mg/dL (60-115); Potassium 3.5 mmol/L (3.3-5.1); Sodium 138 mmol/L (135-145)
[2024-05-13] MEDS: Losartan Potassium 25 MG TABLET PO ×2 (08:54→20:16)
[2024-05-13] MEDS: Apixaban 5 MG TABLET PO ×2 (08:54→20:15)
[2024-05-13] MEDS: Metoprolol Tartrate 50 MG TABLET PO ×2 (08:55→20:18)
[2024-05-13] MEDS: Furosemide 20 MG TABLET PO (08:55)
[2024-05-13] MEDS: Acetaminophen 325 MG TABLET 650 MG PO (08:55)
[2024-05-13] MEDS: Amiodarone HCL 200 MG TABLET 400 MG PO ×2 (08:55→20:15)
[2024-05-13] MEDS: amLODIPine Besylate 5 MG TABLET PO (08:55)
[2024-05-13] MEDS: 0.9 % Sodium Chloride Flush 3 ML SYRINGE IVFLUSH ×3 (08:56→20:18)
--- NOTE | 2024-05-13 10:55 | P.PNCA_ITS ---
Subjective Subjective Date of Service: 05/13/24 Principal diagnosis: Atrial flutter Interval history: Patient remains with persistent atrial flutter, typical despite amiodarone and metoprolol use. Remains tachycardic. No heart failure symptoms. Symptoms of palpitations. Hemodynamically stable. Review of Systems Review of Systems Yes all other systems are reviewed and are negative Cardiovascular: Denies chest pain, Denies lightheadedness, Denies Loss of Consciousness, Reports palpitations, Denies dyspnea and Denies orthopnea Respiratory: Reports no additional respiratory complaints and Denies dyspnea Psychiatric: Reports no additional psychiatric complaints Endocrine: Reports palpitations Physical Exam Vital Signs: Last Vital Signs Temp 97.1 F 05/13/24 07:01 Pulse 136 H 05/13/24 08:55 Resp 20 05/13/24 07:01 BP 125/76 05/13/24 08:54 Pulse Ox 97 05/13/24 07:01 O2 Del Method Room Air 05/13/24 07:01 O2 Flow Rate 6 05/11/24 13:35 BMI result Body Mass Index 32.4 Objective Labs and Meds 05/12/24 06:09 05/13/24 06:10 Lab results: Laboratory Results - last 24 hr 05/13/24 06:10 Hold Purple Top SEE NOTE Sodium 138 Potassium 3.5 Chloride 107 Carbon Dioxide 23 Anion Gap 12 BUN 13 Creatinine 0.71 Estim Creat Clear Calc 57.1 Estimated GFR > 60 Random Glucose 114 Calcium 9.4 Magnesium 2.0 Progress Note: A&P Assessment and plan (1) Atrial flutter: Status: Acute Assessment and Plan: Persistent typical atrial flutter despite amiodarone use, cardioversion metoprolol use. Remains symptomatic but not in heart failure. Remains rhythm control approach to prevent tachycardia mediated cardiomyopathy and future cardiac decompensation. Discussed the case with EP. They will review the case and get back to me. If possible will transfer to [facility] for a typical flutter ablation. Continue full oral anticoagulation. Will follow with you Time Spent With Patient Time: Total time managing care of this patient today ____ minutes. Progress Note: Quality Stroke Does the patient have a stroke diagnosis?: No Procedures Date of Service Date of Service: 05/13/24
--- NOTE | 2024-05-13 12:25 | P.PNIM_ITS ---
Subjective Subjective Date of Service: 05/13/24 Interval History: seen and evaluated this morning keeps flucuating between Sinus and A.Flutter No other overnight events Review of Systems Review of Systems: Yes all other systems are reviewed and are negative Physical Exam 2 Vital Signs: Vital Signs: Last Vital Signs Temp 98.5 F 05/13/24 11:00 Pulse 78 05/13/24 11:00 Resp 20 05/13/24 11:00 BP 120/58 L 05/13/24 11:00 Pulse Ox 97 05/13/24 11:00 O2 Del Method Room Air 05/13/24 11:00 O2 Flow Rate 6 05/11/24 13:35 BMI result Body Mass Index 32.4 Const: Other: Constitutional : Awake, interactive, not in distress Neck : Normal inspection, Supple Cardiovascular : irregular irregular, no JVP, no lower extremity edema Respiratory : good bilateral air entry, no crackles, wheezes or rhonchi Gastrointestinal: soft, lax, Normal bowel sounds, Non tender Skin : Warm, Dry Neurological : Alert & oriented x3, No focal deficit Objective Data Active Medications Acetaminophen (Acetaminophen 325 Mg Tablet) 650 mg PO Q6H PRN PRN Reason: Pain, Mild (Pain Scale 1-3), fever or headache Last Admin: 05/13/24 08:55 Dose: 650 mg Documented By: DAVID Amiodarone HCl (Amiodarone Hcl 200 Mg Tablet) 400 mg PO BID [facility] Last Admin: 05/13/24 08:55 Dose: 400 mg Documented By: DAVID Amlodipine Besylate (Amlodipine Besylate 2.5 Mg Tablet) 2.5 mg PO DAILY [facility]; Protocol Last Admin: 05/11/24 08:05 Dose: Not Given Documented By: SALOMÓN Non-Admin Reason: Physician Held Med Amlodipine Besylate (Amlodipine Besylate 5 Mg Tablet) 5 mg PO DAILY [facility]; Protocol Last Admin: 05/13/24 08:55 Dose: 5 mg Documented By: DAVID Apixaban (Apixaban 5 Mg Tablet) 5 mg PO BID [facility] Last Admin: 05/13/24 08:54 Dose: 5 mg Documented By: DAVID Atorvastatin Calcium (Atorvastatin Calcium 40 Mg Tablet) 40 mg PO BEDTIME [facility] Last Admin: 05/12/24 20:05 Dose: 40 mg Documented By: VALENTINA Calcium Carbonate (Calcium Carbonate 750 Mg Tab.Chew) 750 mg PO Q4H PRN PRN Reason: Heartburn Furosemide (Furosemide 20 Mg Tablet) 20 mg PO DAILY [facility]; Protocol Last Admin: 05/13/24 08:55 Dose: 20 mg Documented By: DAVID Ceftriaxone Sodium 2 gm/ (Sodium Chloride) 50 mls @ 100 mls/hr IV Q24H [facility] Last Admin: 05/12/24 20:06 Dose: 100 mls/hr Documented By: VALENTINA Losartan Potassium (Losartan Potassium 25 Mg Tablet) 25 mg PO BID [facility]; Protocol Last Admin: 05/13/24 08:54 Dose: 25 mg Documented By: DAVID Magnesium Hydroxide (Milk Of Magnesia 30 Ml Oral.Susp) 30 ml PO DAILY PRN PRN Reason: Constipation Melatonin (Melatonin 3 Mg Tablet) 6 mg PO BEDTIME PRN PRN Reason: Insomnia Metoprolol Tartrate (Metoprolol Tartrate 50 Mg Tablet) 50 mg PO BID [facility]; Protocol Last Admin: 05/13/24 08:55 Dose: 50 mg Documented By: DAVID Nystatin (Nystatin Powder 15 Gm Bottle) 1 appl TOPICAL BID PRN; Protocol PRN Reason: rash Sodium Chloride (0.9 % Sodium Chloride Flush 3 Ml Syringe) 3 ml IVFLUSH QSHIFT [facility] Last Admin: 05/13/24 08:56 Dose: 3 ml Documented By: DAVID Triamcinolone Acetonide (Triamcinolone Acet 0.1 % Cream 15 Gm Tube) 1 appl TOPICAL BID PRN; Protocol PRN Reason: Rash Vitamin D (Cholecalciferol (Vitamin D3) 25 Mcg Tablet) 25 mcg PO BEDTIME [facility] Last Admin: 05/12/24 20:05 Dose: 25 mcg Documented By: VALENTINA Labs 05/12/24 06:09 05/13/24 06:10 Labs: Laboratory Results - last 24 hr 05/13/24 06:10 Hold Purple Top SEE NOTE Anion Gap 12 Estim Creat Clear Calc 57.1 Estimated GFR > 60 Random Glucose 114 Calcium 9.4 Magnesium 2.0 Assessment and Plan (1) Atrial flutter: Status: Acute (2) Cellulitis: Status: Acute Plan 83F PMH chronic bilateral lower extremity edema, hld, pafib, htn, presented with fevers Persistent A.Flutter with RvR keeps converting back from Sinus to A.Flutter after Amiodarone, cardioversion and Metoprolol Contiune Amiodarone PO Lopressor to 50mg bid Change Warfarin to Eliquis cardiology input appreciated , consider EP Flutter ablation, might need transfer to [facility] sepsis 2/2 RLE cellulitis complicated by group b strep bacteremia rocephin (initiated 05/07/24) increased to 2gm daily 05/09/24, follow up repeat cultures, echo unremarkable, ID appreciated, plan for 14 day po cephalosporin htn losartan, lopressor, amlodipine hfref lasix dvt prophylaxis - coumadin full code reason for continued hospitalization:aflutter with rvr on AMiodarone and close monitoring on Tele overnight pending possible need to transfer Quality Stroke Does the patient have a stroke diagnosis?: No VTE Prior VTE?: No VTE Risk Level:: Medical - moderate - high VTE Device Contraindication: Treatment Not Indicated VTE Drug Contraindication: N/A - Med Ordered
--- NOTE | 2024-05-13 16:27 | MHC.CM.PN ---
EMR REVIEWED, PT AFLUTTER W/RVR, PER CARDIO NOTE PT MAY NEED TRANSFER TO [facility] FOR A FLUTTER ABLASION, CM WILL CONT TO FOLLOW DC NEEDS.
[2024-05-13] MEDS: Atorvastatin Calcium 40 MG TABLET PO (20:15)
[2024-05-13] MEDS: cefTRIAXone sodium 2 GM in 0.9 % Sodium Chloride 50 ML IV (20:15)
[2024-05-13] MEDS: Cholecalciferol (Vitamin D3) 25 MCG TABLET PO (20:16)
[2024-05-14] VITALS: BP 144/63; PULSE 67; RESP 20; TEMP 36.2; O2SAT 96
[2024-05-14] MEDS: Acetaminophen 325 MG TABLET 650 MG PO (01:42)
[2024-05-14 04:00] VITALS: BP 111/53; PULSE 60; RESP 18; TEMP 36.4; O2SAT 97
[2024-05-14 06:49] LABS: Hematocrit 36.8 % (37.0-47.0); Hemoglobin 13.1 g/dl (12.0-16.0); Mean Corpuscular HGB Conc 35.6 g/dl (31.0-35.0); Mean Corpuscular Volume 87.2 fL (80.0-98.0); Mean Platelet Volume 9.6 fL (9.4-12.3); Platelet Count 231 X10*3/uL (160-400); Red Blood Count 4.22 X10*6/uL (4.20-5.50); Red Cell Distribution Width 13.6 % (11.0-16.0); White Blood Count 11.5 X10*3/uL (4.8-10.8)
[2024-05-14 07:14] VITALS: BP 115/63; PULSE 65; RESP 21; TEMP 36.6; O2SAT 97
[2024-05-14 07:14] LABS: Anion Gap 13 (12-20); Blood Urea Nitrogen 20 mg/dL (9-16); Calcium 9.5 mg/dL (8.4-10.2); Carbon Dioxide 21 mmol/L (22-29); Chloride 107 mmol/L (96-108); Creatinine Clr Calc Pharmacy 56.3; Estimated Glomerular Filt Rate > 60; Glucose Random 104 mg/dL (60-115); Potassium 3.5 mmol/L (3.3-5.1); Sodium 137 mmol/L (135-145)
[2024-05-14] MEDS: Amiodarone HCL 200 MG TABLET 400 MG PO (09:22)
[2024-05-14 09:23] VITALS: BP 135/65
[2024-05-14] MEDS: Apixaban 5 MG TABLET PO (09:23)
[2024-05-14] MEDS: amLODIPine Besylate 5 MG TABLET PO (09:23)
[2024-05-14] MEDS: Metoprolol Tartrate 50 MG TABLET PO (09:23)
[2024-05-14] MEDS: Furosemide 20 MG TABLET PO (09:23)
[2024-05-14] MEDS: Losartan Potassium 25 MG TABLET PO (09:23)
[2024-05-14] MEDS: 0.9 % Sodium Chloride Flush 3 ML SYRINGE IVFLUSH (09:24)
--- NOTE | 2024-05-14 10:20 | P.PNIM_ITS ---
Subjective Subjective Date of Service: 05/14/24 Interval History: seen and evaluated this morning in Sinus rhthym overnight feels extra beats but no SOB No other overnight events Review of Systems Review of Systems: Yes all other systems are reviewed and are negative Physical Exam 2 Vital Signs: Vital Signs: Last Vital Signs Temp 97.8 F 05/14/24 07:14 Pulse 65 05/14/24 07:14 Resp 21 H 05/14/24 07:14 BP 135/65 05/14/24 09:23 Pulse Ox 97 05/14/24 07:14 O2 Del Method Room Air 05/14/24 07:14 O2 Flow Rate 6 05/11/24 13:35 BMI result Body Mass Index 32.4 Const: Other: Constitutional : Awake, interactive, not in distress Neck : Normal inspection, Supple Cardiovascular : regular, no JVP, no lower extremity edema Respiratory : good bilateral air entry, no crackles, wheezes or rhonchi Gastrointestinal: soft, lax, Normal bowel sounds, Non tender Skin : Warm, Dry Neurological : Alert & oriented x3, No focal deficit Objective Data Active Medications Acetaminophen (Acetaminophen 325 Mg Tablet) 650 mg PO Q6H PRN PRN Reason: Pain, Mild (Pain Scale 1-3), fever or headache Last Admin: 05/14/24 01:42 Dose: 650 mg Documented By: JAM Amiodarone HCl (Amiodarone Hcl 200 Mg Tablet) 400 mg PO BID [facility] Last Admin: 05/14/24 09:22 Dose: 400 mg Documented By: CHINA Amlodipine Besylate (Amlodipine Besylate 2.5 Mg Tablet) 2.5 mg PO DAILY [facility]; Protocol Last Admin: 05/11/24 08:05 Dose: Not Given Documented By: SALOMÓN Non-Admin Reason: Physician Held Med Amlodipine Besylate (Amlodipine Besylate 5 Mg Tablet) 5 mg PO DAILY [facility]; Protocol Last Admin: 05/14/24 09:23 Dose: 5 mg Documented By: CHINA Apixaban (Apixaban 5 Mg Tablet) 5 mg PO BID [facility] Last Admin: 05/14/24 09:23 Dose: 5 mg Documented By: CHINA Atorvastatin Calcium (Atorvastatin Calcium 40 Mg Tablet) 40 mg PO BEDTIME [facility] Last Admin: 05/13/24 20:15 Dose: 40 mg Documented By: JAM Calcium Carbonate (Calcium Carbonate 750 Mg Tab.Chew) 750 mg PO Q4H PRN PRN Reason: Heartburn Furosemide (Furosemide 20 Mg Tablet) 20 mg PO DAILY [facility]; Protocol Last Admin: 05/14/24 09:23 Dose: 20 mg Documented By: CHINA Ceftriaxone Sodium 2 gm/ (Sodium Chloride) 50 mls @ 100 mls/hr IV Q24H [facility] Last Infusion: 05/13/24 20:45 Dose: Infused Documented By: JAM Losartan Potassium (Losartan Potassium 25 Mg Tablet) 25 mg PO BID [facility]; Protocol Last Admin: 05/14/24 09:23 Dose: 25 mg Documented By: CHINA Magnesium Hydroxide (Milk Of Magnesia 30 Ml Oral.Susp) 30 ml PO DAILY PRN PRN Reason: Constipation Melatonin (Melatonin 3 Mg Tablet) 6 mg PO BEDTIME PRN PRN Reason: Insomnia Metoprolol Tartrate (Metoprolol Tartrate 50 Mg Tablet) 50 mg PO BID [facility]; Protocol Last Admin: 05/14/24 09:23 Dose: 50 mg Documented By: CHINA Nystatin (Nystatin Powder 15 Gm Bottle) 1 appl TOPICAL BID PRN; Protocol PRN Reason: rash Sodium Chloride (0.9 % Sodium Chloride Flush 3 Ml Syringe) 3 ml IVFLUSH QSHIFT [facility] Last Admin: 05/14/24 09:24 Dose: 3 ml Documented By: CHINA Triamcinolone Acetonide (Triamcinolone Acet 0.1 % Cream 15 Gm Tube) 1 appl TOPICAL BID PRN; Protocol PRN Reason: Rash Vitamin D (Cholecalciferol (Vitamin D3) 25 Mcg Tablet) 25 mcg PO BEDTIME [facility] Last Admin: 05/13/24 20:16 Dose: 25 mcg Documented By: JAM Labs 05/14/24 06:17 05/14/24 06:17 Labs: Laboratory Results - last 24 hr 05/14/24 06:17 MCV 87.2 MCH 31.0 MCHC 35.6 H RDW 13.6 Plt Count 231 MPV 9.6 Absolute Nucleated RBC 0.000 Nucleated RBC % (auto) 0.0 Anion Gap 13 Estim Creat Clear Calc 56.3 Estimated GFR > 60 Random Glucose 104 Calcium 9.5 Microbiology Microbiology Results: Microbiology 05/09/24 08:07 Blood Culture - Final Blood - Venous No growth after 5 days. 05/09/24 08:06 Blood Culture - Final Blood - Venous No growth after 5 days. Assessment and Plan (1) Atrial flutter: Status: Acute (2) Cellulitis: Status: Acute Plan 83F PMH chronic bilateral lower extremity edema, hld, pafib, htn, presented with fevers Persistent A.Flutter with RvR keeps converting back from Sinus to A.Flutter after Cardioversion and starting Amiodarone, and Metoprolol in Sinus rhythm overnight Contiune Amiodarone PO Lopressor to 50mg bid Change Warfarin to Eliquis cardiology input appreciated , consider EP Flutter ablation, might need transfer to [facility] for EP procedure early next week sepsis 2/2 RLE cellulitis complicated by group b strep bacteremia rocephin (initiated 05/07/24) increased to 2gm daily 05/09/24, follow up repeat cultures, echo unremarkable, ID appreciated, plan for 14 day po cephalosporin htn losartan, lopressor, amlodipine hfref lasix dvt prophylaxis - coumadin full code reason for continued hospitalization:aflutter on AMiodarone and close monitoring on Tele overnight pending possible need to transfer Quality Stroke Does the patient have a stroke diagnosis?: No VTE Prior VTE?: No VTE Risk Level:: Medical - moderate - high VTE Device Contraindication: Treatment Not Indicated VTE Drug Contraindication: N/A - Med Ordered
[2024-05-14] MEDS: predniSONE 10 MG TABLET 15 MG PO (10:32)
--- NOTE | 2024-05-14 10:53 | PM.DS ---
DS: Providers Provider Date of Service: 05/14/24 Date of admission: 05/07/24 12:46 Date of discharge: 05/14/24 Primary care physician: Silvia Reynoso MD Consults: 05/08/24 08:25 Consult to Infectious Diseases Routine Consulting Provider: [facility] Reason for consultation: bacteremia 05/09/24 17:07 Consult to Cardiology Routine Consulting Provider: [facility] Reason for consultation: pafib with rvr DS: Diagnosis Discharge Diagnosis (1) Cellulitis: Status: Acute (2) Lower extremity edema: Status: Acute (3) Bacteremia due to group B Streptococcus: Status: Acute (4) Atrial flutter with rapid ventricular response: Status: Acute DS: Summary Hospital Course Hospital Course: Admission note HPI 83F PMH hfref, hld, pafib, htn, presented with fevers. Patient reports feeling well on a.m. prior to presentation. That evening she was sitting on couch watching TV and suddenly became cold, diaphoretic, report of fever of 102.5. Also complaining of diffuse back pain and abdominal pain. Did not have any diarrhea or dysuria at home. But in ED reports 1 episode of diarrhea. Also reports some shortness of breath without wheezing. Denies chest pain. In ED white blood cell count significant at 26,000. Chest x-ray negative. CT abdomen with no acute findings. UA nitrite negative with 6-10 WBCs no bacteria. Hospital course - Persistent A.Flutter with RvR The was treated in different ways with no great success upon admission with Digoxin, Cardizem but rate and rhythm were not controlled. Seen by Cardiology who did cardioversion with DAPHNE and loading with Amiodarone and with higher dose of Metoprolol. At first patient kept converting back from Sinus to A.Flutter after Cardioversion and starting Amiodarone, and Metoprolol but eventually converted to Sinus and remained there for the last 24 hours. Warfarin was changed to Eliquis. Cardiology considered EP Flutter ablation and contacted EP at [facility] who will follow with the patient next week in clinic. - on Admission she had sepsis secondary to RLE cellulitis complicated by group b strep bacteremia that was treated with rocephin (initiated 05/07/24) increased to 2gm daily 05/09/24, as the follow up repeated cultures were negative. echo unremarkable, and she was evaluated by ID who recommended 14 day po cephalosporin. Developed mild erythema and pain in her left antecubetal area at the site of IV. local measures with elevation and warm compressors. She is fully anticoagulated and on oral antibiotics on discharge. Discharge plan Discontinue: 1- Warfarin 2- Multaq 3- Amlodipine 2.5 mg Increase Metoprolol to 50 mg twice daily Decrease Losartan to 25 mg twice daily Start Eliquis 5 mg twice a day Start Cefuroxime twice a day for 14 more days Continue Amiodarone 400 mg for 11 more days then Start Amiodarone 200 mg daily To follow with [facility] (Electrophysiology) as planned on Thursday next week To follow up with dr Angelo as scheduled Use warm compressors for Left arm, keep it elevated, use Tylenol\Advil as needed for short term Time Attestation Discharge Coordination Time (in mins): 44 Quality: Safe Use of Opioids Does Pt have an Active Cancer Diagnosis on the Problem List?: No Quality: Stroke Does the patient have a stroke diagnosis?: No Physical Exam Vital Signs: Vital Signs: Last Vital Signs Temp 97.8 F 05/14/24 07:14 Pulse 65 05/14/24 07:14 Resp 21 H 05/14/24 07:14 BP 135/65 05/14/24 09:23 Pulse Ox 97 05/14/24 07:14 O2 Del Method Room Air 05/14/24 07:14 O2 Flow Rate 6 05/11/24 13:35 BMI result Body Mass Index 32.4 Const: Other: Constitutional : Awake, interactive, not in distress Neck : Normal inspection, Supple Cardiovascular : regular, no JVP, no lower extremity edema Respiratory : good bilateral air entry, no crackles, wheezes or rhonchi Gastrointestinal: soft, lax, Normal bowel sounds, Non tender Skin : Warm, Dry, mild LUE antecubetal erythema with no significant tenderness Neurological : Alert & oriented x3, No focal deficit DS: Data Data Completed and Pending Labs on day of discharge: Laboratory Results - last 24 hr 05/14/24 06:17 WBC 11.5 H RBC 4.22 Hgb 13.1 Hct 36.8 L MCV 87.2 MCH 31.0 MCHC 35.6 H RDW 13.6 Plt Count 231 MPV 9.6 Absolute Nucleated RBC 0.000 Nucleated RBC % (auto) 0.0 Sodium 137 Potassium 3.5 Chloride 107 Carbon Dioxide 21 L Anion Gap 13 BUN 20 H Creatinine 0.72 Estim Creat Clear Calc 56.3 Estimated GFR > 60 Random Glucose 104 Calcium 9.5 Imaging Chest x-ray: Radiologist's impression: ITS Impressions Chest X-Ray 05/07/24 09:10 IMPRESSION: * Clear lungs. Abdomen/Pelvis CT 05/07/24 09:14 IMPRESSION: 1. No acute intra-abdominal or pelvic findings seen to explain the patient's right back pain. 2. Mild sigmoid colonic diverticulosis with no evidence of acute diverticulitis. 3. Incompletely characterized mid left renal mass, favored to represent a hemorrhagic or proteinaceous cyst, given the relative stability since 01/25/2021. Close clinical correlation is requested. Consider renal ultrasound correlation. 4. Moderate size retrocardiac hiatal hernia. 5. Moderate to severe atherosclerotic vascular calcifications. 6. Status post cholecystectomy with no evidence of biliary obstruction. 7. Multiple calcified uterine fibroids. Renal Ultrasound 05/08/24 12:02 IMPRESSION: Proteinaceous or hemorrhagic cyst midpole cortical lesion left kidney.. It is slightly hyperdense to kidney cortex on CT 05/07/2024. Less likely PML. No echogenic stones or hydronephrosis. Left kidney is slightly smaller compared to right side.. Venous Duplex 05/09/24 11:10 IMPRESSION: 1. No evidence of right lower extremity deep venous thrombosis. Right peroneal veins were not visualized. 2. Incidental note of a 4.1 x 1.4 x 2.2 cm lymph node in the right inguinal region. This lymph node demonstrates an echogenic hilum with prominent cortex. This study was presented today May 09, 2024 for interpretation. Stat results provided at this time as requested by referring provider. Discharge Plan Discharge Anticipated Discharge Date/Time: 05/14/24 10:38 Patient Disposition: Home, Self-Care Discharge Diagnosis: Atrial flutter with rapid response Referrals: Silvia Reynoso MD [Primary Care Provider] - 1 Week Discharge Medications: New amiodarone 200 mg Tablet 400 mg PO BID Qty: 44 0RF metoprolol tartrate 50 mg Tablet 50 mg PO BID Qty: 180 0RF Protocol: Hold for SBP/HR < HOLD for SBP < : 90 HOLD for HR < : 60 Eliquis 5 mg Tablet 5 mg PO BID Qty: 180 0RF cefuroxime axetil 500 mg tablet 500 mg PO BID Qty: 28 0RF amiodarone 200 mg tablet 200 mg PO DAILY Qty: 90 0RF Continued atorvastatin 40 mg tablet 40 mg PO DAILY Qty: 100 3RF nystatin [Nystop] 100,000 unit/gram powder 1 appl topical BID PRN (Reason: rash) Qty: 30 1RF triamcinolone acetonide 0.1 % cream 1 appl topical BID PRN (Reason: Rash) furosemide 20 mg tablet 20 mg PO DAILY amlodipine 5 mg tablet 5 mg PO DAILY Qty: 90 0RF Rx Instructions: take with Amlodipine 2.5 mg cholecalciferol (vitamin D3) 25 mcg (1,000 unit) capsule 25 mcg PO BEDTIME Changed losartan 50 mg tablet 25 mg PO BID Qty: 90 0RF Discontinued metoprolol tartrate 50 mg tablet 25 mg PO BID Qty: 90 3RF Multaq 400 mg tablet 400 mg PO BID 90 Days Qty: 180 1RF warfarin 5 mg tablet 2.5 mg PO BEDTIME Protocol: Dose Management Condition: Thursday (Week One) Dose/Route: 2.5 mg Instruction: 0.5 x 5 mg tablets Condition: Thursday Dose/Route: 2.5 mg Instruction: 0.5 x 5 mg tablets Condition: Thursday Dose/Route: 2.5 mg Instruction: 0.5 x 5 mg tablets Condition: Thursday Dose/Route: 2.5 mg Instruction: 0.5 x 5 mg tablets Condition: Dose/Route: 2.5 mg Instruction: 0.5 x 5 mg tablets Condition: Thursday Dose/Route: 2.5 mg Instruction: 0.5 x 5 mg tablets Condition: Thursday Dose/Route: 2.5 mg Instruction: 0.5 x 5 mg tablets Condition: Thursday (Week Two) Dose/Route: 2.5 mg Instruction: 0.5 x 5 mg tablets Condition: Thursday Dose/Route: 2.5 mg Instruction: 0.5 x 5 mg tablets Condition: Thursday Dose/Route: 2.5 mg Instruction: 0.5 x 5 mg tablets Condition: Thursday Dose/Route: 2.5 mg Instruction: 0.5 x 5 mg tablets Condition: Dose/Route: 2.5 mg Instruction: 0.5 x 5 mg tablets Condition: Thursday Dose/Route: 2.5 mg Instruction: 0.5 x 5 mg tablets Condition: Thursday Dose/Route: 2.5 mg Instruction: 0.5 x 5 mg tablets Protocol Text: Adjustment Start Date: Thursday04/29/24 INR Value: 2.4 INR Date: 04/29/24 Recheck Date: 05/27/24 amlodipine 2.5 mg tablet 2.5 mg PO DAILY Qty: 90 0RF Rx Instructions: take with Amlodipine 5 mg QD Discharge Orders: Discharge Order (Routine); Ordered 05/14/24 Ordered By: Shahid Kilgore Diet: Low salt diet Activity on Discharge: As tolerated Stand Alone Forms: Patient Portal Discharge page Print Language: Macanese Care Plan Goals: Discontinue: 1- Warfarin 2- Multaq 3- Amlodipine 2.5 mg Increase Metoprolol to 50 mg twice daily Decrease Losartan to 25 mg twice daily Start Eliquis 5 mg twice a day Start Cefuroxime twice a day for 14 more days Continue Amiodarone 400 mg for 11 more days then Start Amiodarone 200 mg daily To follow with [facility] (Electrophysiology) as planned on Thursday next week To follow up with dr Angelo as scheduled Use warm compressors for Left arm, keep it elevated, use Tylenol\Advil as needed for short term Health Concerns: Read below Plan of Treatment: Read below Assessment: Read below
--- NOTE | 2024-05-14 11:07 | MHC.CM.PN ---
Second IMM 05/14/24, pt has been medically cleared for DC, she will go home via family transport, plan is self care.
[2024-05-14 11:10] VITALS: BP 149/68; PULSE 58; RESP 20; TEMP 36.1; O2SAT 97
--- NOTE | 2024-05-14 13:16 | PM.PNCARD ---
Subjective Subjective Date of Service: 05/14/24 Principal diagnosis: Atrial flutter Interval history: Patient converted to sinus rhythm remaining sinus rhythm overnight. Doing well. Symptoms of palpitations have improved. Hemodynamically stable. Review of Systems Review of Systems Yes all other systems are reviewed and are negative Physical Exam Vital Signs: Last Vital Signs Temp 96.9 F 05/14/24 11:10 Pulse 58 05/14/24 11:10 Resp 20 05/14/24 11:10 BP 149/68 H 05/14/24 11:10 Pulse Ox 97 05/14/24 11:10 O2 Del Method Room Air 05/14/24 11:10 O2 Flow Rate 6 05/11/24 13:35 BMI result Body Mass Index 32.4 Const Other: Constitutional : Awake, interactive, not in distress Neck : Normal inspection, Supple Cardiovascular : regular, no JVP, no lower extremity edema Respiratory : good bilateral air entry, no crackles, wheezes or rhonchi Gastrointestinal: soft, lax, Normal bowel sounds, Non tender Skin : Warm, Dry Neurological : Alert & oriented x3, No focal deficit Objective Labs and Meds 05/14/24 06:17 05/14/24 06:17 Lab results: Laboratory Results - last 24 hr 05/14/24 06:17 WBC 11.5 H RBC 4.22 Hgb 13.1 Hct 36.8 L MCV 87.2 MCH 31.0 MCHC 35.6 H RDW 13.6 Plt Count 231 MPV 9.6 Absolute Nucleated RBC 0.000 Nucleated RBC % (auto) 0.0 Sodium 137 Potassium 3.5 Chloride 107 Carbon Dioxide 21 L Anion Gap 13 BUN 20 H Creatinine 0.72 Estim Creat Clear Calc 56.3 Estimated GFR > 60 Random Glucose 104 Calcium 9.5 Progress Note: A&P Assessment and plan (1) Atrial flutter with rapid ventricular response: Status: Acute Assessment and Plan: Difficult control atrial flutter, typical atrial flutter, controlled on amiodarone as well as metoprolol therapy. Seeing EPS on Thursday for typical flutter ablation as outpatient. Eventually I would see her for switching over to Multaq therapy in a month's time to manage her atrial fibrillation. Continue uninterrupted full oral anticoagulation with Eliquis. Will follow-up as outpatient in 1 month Time Spent With Patient Time: Total time managing care of this patient today ____ minutes. Progress Note: Quality Stroke Does the patient have a stroke diagnosis?: No Procedures Date of Service Date of Service: 05/14/24
== END 2024-05-14 12:40 | disposition home or self-care (01) | DRG 872 ==
LOC: HO.ED 11:01 → HO.EDOVER 13:03 → HO.S3 19:44 → HO.IMC 05-09 18:25
PROVIDERS: Internal Medicine; Internal Medicine Cardiovascular Disease; Physician Assistant; Admitting Provider Internal Medicine; Emergency Provider Emergency Medicine; PCP Internal Medicine; Visit Provider Student in an Organized Health Care Education/Training Program
PROC: 5A2204Z Restoration of Cardiac Rhythm, Single (ICD-10-PCS; CPT 93312; principal; 2024-05-11 13:10)
PROC: 5A2204Z Restoration of Cardiac Rhythm, Single (ICD-10-PCS; 2024-05-11 13:10)
DX: A41.9 Sepsis, unspecified organism (principal); I50.22 Chronic systolic (congestive) heart failure; L03.115 Cellulitis of right lower limb; I11.0 Hypertensive heart disease with heart failure; B95.1 Streptococcus, group B, as the cause of diseases classified elsewhere; I48.0 Paroxysmal atrial fibrillation; Z20.822 Contact with and (suspected) exposure to COVID-19; Z87.891 Personal history of nicotine dependence; Z79.899 Other long term (current) drug therapy
CPT/HCPCS: 0241U; 36415; 71046; 74176; 76775; 80048; 80053; 81001; 81003; 83605; 83690; 83735; 83880; 84484; 85007; 85025; 85027; 85610; 87040; 87086; 87147; 87205; 87493; 87507; 92960; 93005; 93306; 93971; 99285; J0282; J0283; J0692; J0696; J1160; J1836; J1885; J2405; J2704; Q9957

== ENCOUNTER → 2024-05-07 08:07 | Outpatient (BNV) | payer MEDICARE, SELFPAY | PROVIDERS: Emergency Provider Emergency Medicine; PCP Internal Medicine; Visit Provider Internal Medicine | DX: N39.0 Urinary tract infection, site not specified (principal); I48.92 Unspecified atrial flutter; R78.81 Bacteremia | CPT/HCPCS: 99223; 99232; 99233; 99239; 99499 ==

== ENCOUNTER 2024-05-07 12:46 | Outpatient (BNV) | payer MEDICARE, SELFPAY | END 2024-05-09 07:00 | PROVIDERS: Admitting Provider Internal Medicine; Emergency Provider Emergency Medicine; PCP Internal Medicine; Visit Provider Internal Medicine Cardiovascular Disease | DX: I35.8 Other nonrheumatic aortic valve disorders (principal); I34.81 Nonrheumatic mitral (valve) annulus calcification; I36.1 Nonrheumatic tricuspid (valve) insufficiency | CPT/HCPCS: 93010; 93306 ==

== ENCOUNTER 2024-05-07 12:46 | Outpatient (BNV) | payer MEDICARE, SELFPAY | END 2024-05-11 12:55 | PROVIDERS: Admitting Provider Internal Medicine; Emergency Provider Emergency Medicine; PCP Internal Medicine; Visit Provider Internal Medicine Cardiovascular Disease | DX: I37.1 Nonrheumatic pulmonary valve insufficiency (principal); R93.1 Abnormal findings on diagnostic imaging of heart and coronary circulation | CPT/HCPCS: 76376; 93312; 93320; 93325 ==

== ENCOUNTER → 2024-05-07 12:46 | Outpatient (BNV) | payer MEDICARE, SELFPAY | PROVIDERS: Admitting Provider Internal Medicine; Emergency Provider Emergency Medicine; PCP Internal Medicine; Visit Provider Internal Medicine | DX: R60.0 Localized edema (principal); L03.90 Cellulitis, unspecified | CPT/HCPCS: 99222 ==

== ENCOUNTER → 2024-05-07 12:46 | Outpatient (BNV) | payer MEDICARE, SELFPAY | PROVIDERS: Admitting Provider Internal Medicine; Emergency Provider Emergency Medicine; PCP Internal Medicine; Visit Provider Internal Medicine Cardiovascular Disease | DX: I48.92 Unspecified atrial flutter (principal) | CPT/HCPCS: 92960; 99222; 99233 ==

== ENCOUNTER 2024-05-24 01:51 | Emergency (ER) | payer MEDICARE, SELFPAY ==
[2024-05-24 03:01] VITALS: BP 164/96; PULSE 102; RESP 18; TEMP 36.4; O2SAT 95; BMI 27.0
--- NOTE | 2024-05-24 03:05 | ED_ITS ---
HPI - General Adult General Chief complaint: General Medical Stated complaint: patient states high bp Time Seen by Provider: 05/24/24 02:58 Source: patient and family Mode of arrival: ambulatory Limitations: no limitations History of Present Illness ED Provider: URIEL LOCO narrative: 83 yo female with PMH of afib on amio and bblocker on eliquis, HTN, HLD just s/p ablation on but now back in afib came in tonight as BP go up to 180/100 then in AM down to 90/50s but she has no cp/sob and now headache numnbess or weakness. She came to see if this was normal. She denies changes in urine output has been eating and drinking well. Due to wait time declines EKG and labs. complaint: HTN Onset (ago): day(s) (2) Radiation: non-radiation Severity: mild Relieving factors: none Exacerbating factors: none Associated symptoms: other (nightsweats) Related Data Home Medications ?Medication ?Instructions ?Recorded ?Confirmed cholecalciferol (vitamin D3) 25 25 mcg PO BEDTIME 09/17/20 05/07/24 mcg (1,000 unit) capsule furosemide 20 mg tablet 20 mg PO DAILY edema 05/07/24 05/07/24 triamcinolone acetonide 0.1 % 1 appl topical BID PRN Rash 05/07/24 05/07/24 topical cream Previous Rx's ?Medication ?Instructions ?Recorded atorvastatin 40 mg tablet 40 mg PO DAILY #100 tabs 06/24/23 nystatin 100,000 unit/gram topical 1 appl topical BID PRN rash #30 12/27/23 powder (Nystop) grams amlodipine 5 mg tablet 5 mg PO DAILY #90 tabs 03/10/24 amiodarone 200 mg tablet 200 mg PO DAILY #90 tabs 05/14/24 amiodarone 200 mg tablet 400 mg (2 x 200 mg) PO BID #44 tabs 05/14/24 apixaban 5 mg tablet (Eliquis) 5 mg PO BID #180 tabs 05/14/24 cefuroxime axetil 500 mg tablet 500 mg PO BID #28 tabs 05/14/24 losartan 50 mg tablet 25 mg (1/2 x 50 mg) PO BID #90 tabs 05/14/24 metoprolol tartrate 50 mg tablet 50 mg PO BID #180 tabs 05/14/24 Allergies Allergy/AdvReac Type Severity Reaction Status Date / Time codeine [CODEINE] Allergy Intermediate HEADACHES Verified 05/24/24 03:03 hydrochlorothiazide Allergy Intermediate NAUSEA & Verified 05/24/24 03:03 [HYDROCHLOROTHIAZIDE] VOMITING, low K latex [LATEX] Allergy Intermediate RASH Verified 05/24/24 03:03 adhesive tape Allergy Mild Rash Verified 05/24/24 03:03 lisinopril [LISINOPRIL] AdvReac Mild COUGH Verified 05/07/24 07:24 Review of Systems Review of Systems: Constitutional : No Fever, No Chills, No Fatigue, pos nightsweats ENT/Mouth : No sore throat, No Rhinorrhea Eyes: No Eye Pain, No Swelling, No Redness Cardiovascular : No Chest Pain, No SOB, No Dyspnea on Exertion Respiratory : No Cough, No Sputum Gastrointestinal : No Nausea, No Vomiting, No Diarrhea, No abdominal Pain Genitourinary : No Dysuria, No Urinary Frequency, No Hematuria, Musculoskeletal : No joint pain, No Myalgias, No Joint Swelling Skin : No Skin Lesions, No rash Neuro : No Weakness, No Numbness, No Dizziness, no Headache All other systems reviewed and are negative PMFSH Past Medical History Attestation statement: The following information was validated with the patient. Source: old records reviewed Medical History Cellulitis Osteoporosis Uterine prolapse Rectocele Hyperlipidemia Sinus bradycardia Atrial fibrillation Paroxysmal atrial fibrillation HTN (hypertension) Surgical History History of cholecystectomy Hx of tubal ligation Family History Family History Father CVD (cardiovascular disease) Mother CVD (cardiovascular disease) Diabetes Other Substance use disorder Social History Social History Household Members: Children Housing: House Do you presently have visiting nurse or other home services: No Alcohol intake: unknown Patient Tobacco Use Status: Former Tobacco user Years Smoked: 12 +/- e-Cigarette/Vaping Use: Never Used Second Hand Smoke Exposure: No Advance Directives: No Advance Directives Information Provided: Yes Do you have a plan to hurt others: No Plan service: No Current occupational status: retired 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 Oriented X3. No acute distress. Eyes: Pupils equal, round and reactive to light. ENT: Pharynx normal. Neck: Normal inspection. Neck supple. CVS: irregular heart rate and rhythm. Pulses normal. Respiratory: No respiratory distress. Breath sounds normal. Abdomen: Soft and nontender. Skin: Skin warm and dry. Normal skin color. Extremities: No lower extremity edema. Neuro: Oriented X 3. No motor deficit. No sensory deficit. Medical Decision Making Medical Decision Making MDM Narrative: 83 yo female with PMH of afib on amio and bblocker on eliquis, HTN, HLD here with elevated and low BPs at home but nothing that sounds too high or too low causing end organ damage offered labs and EKG but given wait times in the ED the patient does not want to stay in the ED plans to follow up wih her doctor at 1pm today. Stable for DC at this time she and son are reliable. We did discuss reasons to return. I did review her med list with her Differential Diagnosis Differential Diagnoses: The differential diagnosis associated with the presentation includes afib, HTN, med changes Admission/Observation Consideration of admission/observation: Escalation of care including admission/observation considered patient declines labs and EKG Independent Historian Clinical information obtained from an independent historian. History obtained from or confirmed by: Other (son) Discharge Plan Discharge Clinical Impression: HTN (hypertension), Paroxysmal atrial fibrillation Patient Disposition: Home, Self-Care Instructions: A-fib (Atrial Fibrillation) (ED), Chronic Hypertension (ED) Additional Instructions: return for worsening symptoms such as headache, numbness, weakness, chest pain or any other concerns monitor your kidney, thyroid, liver function have someone else use your blood pressure machine to make sure it is working regularly Prescriptions: No Action atorvastatin 40 mg tablet 40 mg PO DAILY Qty: 100 3RF nystatin [Nystop] 100,000 unit/gram powder 1 appl topical BID PRN (Reason: rash) Qty: 30 1RF triamcinolone acetonide 0.1 % cream 1 appl topical BID PRN (Reason: Rash) furosemide 20 mg tablet 20 mg PO DAILY amiodarone 200 mg Tablet 400 mg PO BID Qty: 44 0RF metoprolol tartrate 50 mg Tablet 50 mg PO BID Qty: 180 0RF Protocol: Hold for SBP/HR < HOLD for SBP < : 90 HOLD for HR < : 60 Eliquis 5 mg Tablet 5 mg PO BID Qty: 180 0RF cefuroxime axetil 500 mg tablet 500 mg PO BID Qty: 28 0RF amiodarone 200 mg tablet 200 mg PO DAILY Qty: 90 0RF losartan 50 mg tablet 25 mg PO BID Qty: 90 0RF amlodipine 5 mg tablet 5 mg PO DAILY Qty: 90 0RF Rx Instructions: take with Amlodipine 2.5 mg cholecalciferol (vitamin D3) 25 mcg (1,000 unit) capsule 25 mcg PO BEDTIME Print Language: Spanish
[2024-05-24 03:23] VITALS: BP 164/96; PULSE 102; RESP 18; TEMP 36.4; O2SAT 95
== END 2024-05-24 03:30 | disposition home or self-care (01) ==
PROVIDERS: Emergency Provider Emergency Medicine; PCP Internal Medicine
DX: I48.0 Paroxysmal atrial fibrillation (principal); I10 Essential (primary) hypertension; R51.9 Headache, unspecified; R20.0 Anesthesia of skin; Z79.01 Long term (current) use of anticoagulants; Z79.899 Other long term (current) drug therapy; Z87.891 Personal history of nicotine dependence
CPT/HCPCS: 99282

== ENCOUNTER 2024-05-24 13:20 | Outpatient (AMB) | payer MEDICARE, SELFPAY ==
[2024-05-24 13:24] VITALS: BP 136/66; PULSE 67; O2SAT 96; BMI 27.1
--- NOTE | 2024-05-24 13:24 | MHC.PC.OV ---
Vital Signs 05/24/24 13:24 Height 5 ft 5 in Weight 163 lb BMI 27.1 BP 136/66 Blood Pressure Location Lt brachial Position Sitting Pulse 67 Pulse Source Pulse Oximeter Pulse Oximetry (%) 96 Oxygen Delivery Method Room Air Intake Visit Reasons: Hospital follow up Intake Note: Pt is here today for Hospital follow up visit. Allergies codeine [CODEINE] Allergy (Intermediate, Verified 05/24/24 13:27) HEADACHES hydrochlorothiazide [HYDROCHLOROTHIAZIDE] Allergy (Intermediate, Verified 05/24/24 13:27) NAUSEA & VOMITING, low K latex [LATEX] Allergy (Intermediate, Verified 05/24/24 13:27) RASH adhesive tape Allergy (Mild, Verified 05/24/24 13:27) Rash lisinopril [LISINOPRIL] Adverse Reaction (Mild, Verified 05/24/24 13:27) COUGH Tobacco use date assessed: 05/24/24 Dental Screening Dental Screen Date: 03/04/24 HPI Hospital follow up HPI Details Patient presents for the follow-up of hospitalization for fever and sepsis due to cellulitis. Patient developed A flutter with rapid ventricular rate and underwent catheter ablation. She reports having night sweats since she was discharged from hospital. She reports episodes of palpitation with increased heart rate to 130 on and off lasting only a few minutes. Patient denies chest pain lightheadedness or diaphoresis during the episodes. Patient has a follow-up appointment with the boiler tender in 2 weeks. She has been taking amiodarone and metoprolol for Alutter /AFib and Eliquis for anticoagulation [facility] Medical History Cellulitis Osteoporosis Uterine prolapse Rectocele Hyperlipidemia Sinus bradycardia Atrial fibrillation Paroxysmal atrial fibrillation HTN (hypertension) Surgical History History of cholecystectomy Hx of tubal ligation Family History Father CVD (cardiovascular disease) Mother CVD (cardiovascular disease) Diabetes Other Substance use disorder Social History Household Members: Children Housing: House Do you presently have visiting nurse or other home services: No Alcohol intake: unknown Patient Tobacco Use Status: Former Tobacco user Years Smoked: 12 +/- e-Cigarette/Vaping Use: Never Used Second Hand Smoke Exposure: No service: No Current occupational status: retired 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 5. Poor appetite or overeating: not at all 8. Moving or speaking so slowly that other people could have noticed. Or the opposite - being so fidgety or restless that you have been moving around a lot more than usual: not at all Source: Developed by Drs. Lior Francois, Dee Arango, Jhoan Coronel and colleagues, with an educational simone from [employer]. Thrive Questionnaire Date Thrive assessed: 05/08/24 I am a: Patient What is your living situation today?: I have a steady place to live Within the past 12 months, did the food you bought not last and you didn't have the money to get more?: Never true Within the past 12 months, did you worry whether your food would run out before you got money to buy more?: Never true Do you have trouble paying for medicines?: No Do you have trouble getting transportation to medical appointments?: No Do you have trouble paying your heating and electricity bill?: No Do you have trouble taking care of your child, family member or friend?: No Do you have trouble with day-to-day activities such as bathing, preparing meals, shopping, managing finances, etc.?: No Are you currently unemployed and looking for a job?: No Are you interested in more education?: No Please select the resources that you would like help with: None Currently or been in a relationship where the following occur: No concerns reported THRIVE Score: 0 AUDIT C Alcohol Use Questionnaire (AUDIT-C) 1. How often do you have a drink containing alcohol?: Never 3. How often do you have six or more drinks on one occasion?: Never Total Score: 0 RENETTA-7 AMB Questionnaire RENETTA-7 Date RENETTA - 7 assessed: 04/18/24 Feeling nervous, anxious, or on edge: 0 = Not at all Not being able to stop or control worryin = Not at all Worrying too much about different things: 0 = Not at all Trouble relaxin = Not at all Being so restless that it is hard to sit still: 0 = Not at all Becoming easily annoyed or irritable: 0 = Not at all Feeling afraid as if something awful might happen: 0 = Not at all Total RENETTA-7 score (0-4 normal; 5-9 mild; 10-14 moderate; 15-21 severe): 0 Source: Developed by Drs. Lior Francois, Dee Arango, Jhoan Coronel and colleagues, with an educational simone from [employer]. Review of Systems Const All systems reviewed & are unremarkable except as noted in HPI and below Eyes Reports no additional complaints Resp Reports no additional complaints GI Reports no additional complaints Reports no additional complaints Physical exam (Primary Care) Vital Signs: Last Vital Signs Pulse 67 05/24/24 13:24 BP 136/66 05/24/24 13:24 Pulse Ox 96 05/24/24 13:24 Oxygen Delivery Method Room Air 05/24/24 13:24 BMI result Body Mass Index 27.1 Tobacco/Smoking Status: Tobacco use Status Tobacco use date assessed 05/24/24 05/24/24 13:42 Patient Tobacco Use Status Former Tobacco user 05/24/24 13:24 Tobacco use type 11/27/22 09:43 e-Cigarette/Vaping Use Never Used 05/24/24 13:24 Thrive Assessment: Date of Thrive Assessment Date Thrive assessed 05/08/24 05/24/24 13:24 Currently or been in a relationship where the following occur: No concerns reported Const General: no acute distress Eyes General: appearance normal, both eyes and all related structures Resp Effort & Inspection: normal respiratory effort Auscultation: clear to auscultation bilaterally Cardio Rhythm: regular rhythm Heart sounds: S1 normal heart sound present and S2 normal heart sound present GI Inspection: Yes normal to inspection Palpation (GI): Soft to palpation Percussion: Yes normal to percussion Assessment and Plan Assessment & Plan (1) Atrial flutter with rapid ventricular response: Code(s): I48.92 - Unspecified atrial flutter Plan: Continue current treatment follow-up with the Cardiology in 2 weeks (2) HTN (hypertension): Code(s): I10 - Essential (primary) hypertension Qualifiers: Hypertension type: unspecified Qualified Code(s): I10 - Essential (primary) hypertension Plan: Continue current medications (3) Hyperlipidemia: Code(s): E78.5 - Hyperlipidemia, unspecified Plan: Continue statin Coding Level of Care Code Est Pt Level 4 (32668) Diagnoses Atrial flutter with rapid ventricular response I48.92 HTN (hypertension) I10 Hypertension type: unspecified Hyperlipidemia E78.5
== END 2024-05-24 15:07 | disposition home or self-care (01) ==
PROVIDERS: PCP Internal Medicine; Visit Provider Internal Medicine
DX: I48.92 Unspecified atrial flutter (principal); I10 Essential (primary) hypertension; E78.5 Hyperlipidemia, unspecified
CPT/HCPCS: 99214

== ENCOUNTER → 2024-05-27 10:50 | Outpatient (REF) | payer MEDICARE, SELFPAY ==
--- NOTE | 2024-05-27 10:53 | HM_ITS ---
Conclusion: 1. Patient was monitored for total period of 3 days and 2 hours 2. Baseline was normal sinus rhythm with average heart of 49 beats per minute 3. No significant pauses noted but frequent sinus bradycardia noted with 97% of time heart rate below 60 beats per minute 4. Rare PACs noted without any episodes of atrial fibrillation 5. Patient marked 1 counter which correlated with sinus bradycardia MTDD
== END ==
LOC: HO.CARD 10:50
PROVIDERS: PCP Internal Medicine; Visit Provider Internal Medicine Cardiovascular Disease
DX: I48.92 Unspecified atrial flutter (principal)
CPT/HCPCS: 93242

== ENCOUNTER → 2024-05-27 10:53 | Outpatient (BNV) | payer MEDICARE, SELFPAY | PROVIDERS: PCP Internal Medicine; Visit Provider Internal Medicine Cardiovascular Disease | DX: I49.1 Atrial premature depolarization (principal) | CPT/HCPCS: 93244 ==

== ENCOUNTER 2024-05-30 13:49 | Outpatient (AMB) | payer MEDICARE, SELFPAY ==
[2024-05-30 14:08] VITALS: BP 154/60; PULSE 52; BMI 26.8
--- NOTE | 2024-05-30 14:08 | MHC.OFFVIS ---
Vital Signs 05/30/24 14:08 Height 5 ft 5 in Weight 160 lb 14.999 oz BMI 26.8 BP 154/60 H Blood Pressure Location Rt brachial Position Sitting Pulse 52 Pulse Source Monitor Intake Visit Reasons: feeling poor after ablation/ ekg and bp check(NS) Inspector Packer Glass Container Required: No Allergies codeine [CODEINE] Allergy (Intermediate, Verified 05/30/24 14:10) HEADACHES hydrochlorothiazide [HYDROCHLOROTHIAZIDE] Allergy (Intermediate, Verified 05/30/24 14:10) NAUSEA & VOMITING, low K latex [LATEX] Allergy (Intermediate, Verified 05/30/24 14:10) RASH adhesive tape Allergy (Mild, Verified 05/30/24 14:10) Rash lisinopril [LISINOPRIL] Adverse Reaction (Mild, Verified 05/30/24 14:10) COUGH Medication List - Last Reconciled 05/30/24 by Louann Rodas NP-C amiodarone 200 mg PO DAILY amlodipine 5 mg PO DAILY apixaban (Eliquis) 5 mg PO BID atorvastatin 40 mg PO DAILY cholecalciferol (vitamin D3) 25 mcg PO BEDTIME furosemide 20 mg PO DAILY losartan 25 mg (1/2 x 50 mg) PO BID metoprolol tartrate 50 mg See Protocol PO BID nystatin (Nystop) 1 appl topical BID PRN triamcinolone acetonide 0.1% 1 appl topical BID PRN HPI HPI feeling poor after ablation/ ekg and bp check(NS): Details: Laurel is an 84-year-old female with past medical history hypertension, hyperlipidemia, sinus bradycardia, paroxysmal atrial fibrillation who was recently admitted to [facility] with cellulitis, bacteremia and had atrial flutter with RVR. She did require a DAPHNE cardioversion and was put on amiodarone for rhythm control. Following discharge she was sent to the seam press operator and has since undergone an atrial flutter ablation and now presents for follow-up. Today she states that she has not been feeling well since her ablation. She reports having fatigue and a general feeling of unwellness. She says she had atrial fibrillation in the days following her ablation but she has not had any known recurrent episodes in the last week. She was experiencing some chest discomfort following the ablation but that too has fully resolved. She has no chest discomfort brought on by exertional activities. She denies shortness of breath, PND, orthopnea. She does have mild chronic lower leg edema. No lightheadedness, presyncope, syncope, falls. No bleeding issues reported. Taking meds as directed. She has completed her amiodarone load few days ago. [facility] Medical History Cellulitis Osteoporosis Uterine prolapse Rectocele Hyperlipidemia Sinus bradycardia Atrial fibrillation Paroxysmal atrial fibrillation HTN (hypertension) Surgical History History of cholecystectomy Hx of tubal ligation Family History Father CVD (cardiovascular disease) Mother CVD (cardiovascular disease) Diabetes Other Substance use disorder Social History Household Members: Children Housing: House Do you presently have visiting nurse or other home services: No Alcohol intake: unknown Patient Tobacco Use Status: Former Tobacco user Years Smoked: 12 +/- e-Cigarette/Vaping Use: Never Used Second Hand Smoke Exposure: No service: No Current occupational status: retired 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 Current occupational exposures/hazards: No Cognitive needs: No Hearing needs: No Vision needs: Yes Review of Systems Const All systems reviewed & are unremarkable except as noted in HPI and below Reports fatigue and Reports lethargy ENT Denies dizziness Card Denies chest pain, Denies chest pain at rest, Denies chest pain with activity, Denies rapid heart rate, Denies pedal edema, Denies edema, Denies leg edema, Denies lightheadedness, Denies palpitations, Denies dyspnea, Denies dyspnea on exertion and Denies orthopnea Resp Denies cough, Denies dyspnea and Denies dyspnea on exertion GI Denies hematochezia and Denies change in stool character Musc Denies abnormal gait, Denies limited range of motion, Denies muscle cramps, Denies muscle weakness, Denies numbness, Denies radiating pain into limb, Denies stiffness and Denies tingling Neuro Denies abnormal gait, Denies dizziness, Denies numbness and Denies tingling Endo Reports fatigue and Denies palpitations Physical Exam Vital Signs: Last Vital Signs Pulse 52 05/30/24 14:08 BP 154/60 H 05/30/24 14:08 BMI result Body Mass Index 26.8 Const General: cooperative, healthy appearing, comfortable and no acute distress Orientation/consciousness: patient oriented x3 Neck Neck: Yes normal visual inspection and Yes no JVD Resp Effort & Inspection: normal respiratory effort Auscultation: clear to auscultation bilaterally, no rales, no rhonchi and no wheezes Cardio Jugular venous distension: no JVD Rate: regular rate Rhythm: regular rhythm Heart sounds: S1 normal heart sound present, S2 normal heart sound present, no murmurs and no rubs Neuro General: patient oriented x3 Extrem General: Yes normal to inspection, No no pedal edema and No calf tenderness Psych Appearance: grossly normal Mental Status: mental status grossly normal Speech and movement: Normal speech and movement present Office Procedures EKG Details: Today, read by me, sinus bradycardia, rate 52, QTC 479 milliseconds [id number], Complete Assessment & Plan Assessment & Plan (1) Atrial flutter with rapid ventricular response: Code(s): I48.92 - Unspecified atrial flutter Category: Medical Plan: Recent issue with atrial flutter RVR during hospitalization for bacteremia and cellulitis. She did have a DAPHNE cardioversion on 05/11/2024 with successful conversion to sinus rhythm. She was put on amiodarone for rhythm control and continued on metoprolol. She is on Eliquis for anticoagulation. She was referred to Dr Graff for atrial flutter ablation. Her procedure was done on 05/17/2024. She reports having some atrial fibrillation/flutter in the week after her ablation but none in the last week. She just wore a Holter monitor and handed it into cardiology today. Plan to call her when report is available. EKG done today is showing sinus bradycardia, heart rate 52, QTC 479 milliseconds. She reports issues with feeling fatigued and generally unwell. This could be related to chronotropic incompetence. Will have her continue amiodarone at 200 mg daily. Will reduce her metoprolol from 50 mg b.i.d. down to 25 mg b.i.d.. Continue Eliquis 5 mg b.i.d.. Labs done 05/14/2024 showed creatinine 0.72. Will plan for cardiology follow-up in 6-8 weeks to reassess condition. (2) S/P ablation of atrial flutter: Comment: 05/17/2024 with Code(s): Z98.890 - Other specified postprocedural states; Z86.79 - Personal history of other diseases of the circulatory system Category: Surgical (3) Sinus bradycardia: Code(s): R00.1 - Bradycardia, unspecified Category: Medical Plan: EKG today showing sinus bradycardia, rate 52. Decreasing metoprolol as above. (4) HTN (hypertension): Code(s): I10 - Essential (primary) hypertension Category: Medical Qualifiers: Hypertension type: unspecified Qualified Code(s): I10 - Essential (primary) hypertension Plan: Blood pressure elevated today at 154/60. She tells me her medications had been adjusted when she was in the hospital recently. At this time will be decreasing her metoprolol as above. Will increase her losartan back to her usual dose of 50 mg b.i.d.. Continue amlodipine at 5 mg daily. Continue Lasix 20 mg daily. Plan to reassess blood pressure next visit. (5) Current use of anticoagulant therapy: Code(s): Z79.01 - correction (current) use of anticoagulants Category: Medical Plan: On Eliquis for anticoagulation. Dose is appropriate for her creatinine and weight. No bleeding issues reported. Plan Time spent on chart review, documentation, interview and assessment Medications: New metoprolol tartrate reduced dose 25 mg PO BID 60 tabs 5RF furosemide 20 mg PO DAILY 90 tabs 1RF edema Changed From losartan 25 mg (1/2 x 50 mg) PO BID 90 tabs 0RF To losartan dose increase 50 mg PO BID 90 tabs 1RF Discontinued metoprolol tartrate Discontinued Reason: Doctor's Order 50 mg See Protocol PO BID 180 tabs 0RF Coding Level of Care Code Est Pt Level 4 (26835) Diagnoses Atrial flutter with rapid ventricular response I48.92 S/P ablation of atrial flutter Z98.890; Z86.79 Sinus bradycardia R00.1 HTN (hypertension) I10 Hypertension type: unspecified Current use of anticoagulant therapy Z79.01 CPT Codes EKG - CPT: 23502-[id number], Complete ([id number])
== END 2024-05-30 14:49 | disposition home or self-care (01) ==
PROVIDERS: PCP Internal Medicine; Visit Provider Nurse Practitioner Family
DX: I48.92 Unspecified atrial flutter (principal); Z98.890 Other specified postprocedural states; Z86.79 Personal history of other diseases of the circulatory system; R00.1 Bradycardia, unspecified; I10 Essential (primary) hypertension; Z79.01 Long term (current) use of anticoagulants
CPT/HCPCS: 93010; 99214

== ENCOUNTER → 2024-05-30 13:49 | Outpatient (BNVA) | payer MEDICARE, SELFPAY | PROVIDERS: PCP Internal Medicine; Visit Provider Nurse Practitioner Family | DX: I48.92 Unspecified atrial flutter (principal); I10 Essential (primary) hypertension; R00.1 Bradycardia, unspecified; Z98.890 Other specified postprocedural states; Z79.01 Long term (current) use of anticoagulants; Z86.79 Personal history of other diseases of the circulatory system | CPT/HCPCS: 93005; 99212 ==

== ENCOUNTER 2024-06-01 12:45 | Outpatient (AMB) | payer MEDICARE, SELFPAY ==
[2024-06-01 13:05] VITALS: BMI 26.8
--- NOTE | 2024-06-01 13:05 | A.OFFVIS_ITS ---
Vital Signs 06/01/24 13:05 Height 5 ft 5 in Weight 160 lb 14.999 oz BMI 26.8 Intake Visit Reasons: pessary check Clearing Distribution Clerk Required: No Information Interpreted: non-clinical & clinical Installation Helper: Installation Helper Present (Elida Keene ECTOR) Accompanied by: Self / Same As Patient Allergies codeine [CODEINE] Allergy (Intermediate, Verified 06/01/24 13:09) HEADACHES hydrochlorothiazide [HYDROCHLOROTHIAZIDE] Allergy (Intermediate, Verified 06/01/24 13:09) NAUSEA & VOMITING, low K latex [LATEX] Allergy (Intermediate, Verified 06/01/24 13:09) RASH adhesive tape Allergy (Mild, Verified 06/01/24 13:09) Rash lisinopril [LISINOPRIL] Adverse Reaction (Mild, Verified 06/01/24 13:09) COUGH Post menopausal: Yes HPI Comments Details: The patient is presenting for pessary check no complaints no vaginal pain, discharge or pressure. The patient is having vaginal malodorous discharge 10 days ago and removed her pessary since then her symptoms resolved completely PFSH Medical History Cellulitis Osteoporosis Uterine prolapse Rectocele Hyperlipidemia Sinus bradycardia Atrial fibrillation Paroxysmal atrial fibrillation HTN (hypertension) Surgical History History of cholecystectomy Hx of tubal ligation Family History Father CVD (cardiovascular disease) Mother CVD (cardiovascular disease) Diabetes Other Substance use disorder Social History Household Members: Children Housing: House Do you presently have visiting nurse or other home services: No Alcohol intake: unknown Patient Tobacco Use Status: Former Tobacco user Years Smoked: 12 +/- e-Cigarette/Vaping Use: Never Used Second Hand Smoke Exposure: No service: No Current occupational status: 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 Current occupational exposures/hazards: No Cognitive needs: No Hearing needs: No Vision needs: Yes Review of Systems Const All systems reviewed & are unremarkable except as noted in HPI and below Physical Exam Vital Signs: BMI result Body Mass Index 26.8 General: Yes no CVA tenderness External Female Exam: normal external appearance and normal appearance of the urethra Speculum Exam - Vagina: normal appearance of the vagina, no lesions, no masses and other (No evidence of vaginal wall abrasions) Speculum Exam - Cervix: normal appearance of the cervix, normal palpation, no lesions and no masses Bimanual exam- vagina & uterus: uterine size normal, normal palpation, uterine shape normal and nodular Bimanual Exam- Adnexa, other: normal adnexae Back/Spine/Pelvis Back: no CVA tenderness Assessment & Plan Assessment & Plan (1) Pessary maintenance: Code(s): Z46.89 - Encounter for fitting and adjustment of other specified devices Category: Medical Plan: Pelvic exam revealed normal findings no evidence of erythema, pressure or any other abnormal finding. The pessary was replaced back in, it did not slip out after Valsalva in the supine, sitting, and standing position. Pt was instructed to call if vaginal pressure, pain or discharge occurs otherwise and to keep using Trimosan Gel 2-3 x/week. Follow-up in 3 months for another pessary check Coding Level of Care Code Est Pt Level 3 (54098) Diagnoses Pessary maintenance Z46.89
== END 2024-06-01 14:31 | disposition home or self-care (01) ==
LOC: HO.HWS 12:45
PROVIDERS: PCP Internal Medicine; Visit Provider Obstetrics & Gynecology
DX: Z46.89 Encounter for fitting and adjustment of other specified devices (principal)
CPT/HCPCS: 99213

== ENCOUNTER → 2024-06-01 12:45 | Outpatient (BNVA) | payer MEDICARE, SELFPAY | PROVIDERS: PCP Internal Medicine; Visit Provider Obstetrics & Gynecology | DX: N89.8 Other specified noninflammatory disorders of vagina (principal); Z46.89 Encounter for fitting and adjustment of other specified devices | CPT/HCPCS: 99212 ==

== ENCOUNTER → 2024-06-15 09:24 | Outpatient (REF) | payer MEDICARE, SELFPAY ==
--- NOTE | 2024-06-15 09:26 | HM_ITS ---
Conclusion: 1. Patient was monitored for total period of 2 days and 23 hours 2. Baseline was normal sinus rhythm with average heart of 59 beats per minute 3. No significant pauses noted but frequent sinus bradycardia noted with 53% of time heart rate below 60 beats per minute 4. Rare PACs noted but no episodes of atrial fibrillation 5. No patient reported events MTDD
== END ==
LOC: HO.CARD 09:24
PROVIDERS: PCP Internal Medicine; Visit Provider Nurse Practitioner Family
DX: R00.1 Bradycardia, unspecified (principal); Z98.890 Other specified postprocedural states; Z86.79 Personal history of other diseases of the circulatory system
CPT/HCPCS: 93242

== ENCOUNTER → 2024-06-15 09:26 | Outpatient (BNV) | payer MEDICARE, SELFPAY | PROVIDERS: PCP Internal Medicine; Visit Provider Internal Medicine Cardiovascular Disease | DX: I49.3 Ventricular premature depolarization (principal) | CPT/HCPCS: 93244 ==

== ENCOUNTER 2024-06-21 10:03 | Outpatient (AMB) | payer MEDICARE, SELFPAY ==
--- NOTE | 2024-06-21 10:03 | A.OFFPC_ITS ---
Vital Signs 06/21/24 10:08 Height 5 ft 5 in Weight 160 lb BMI 26.6 BP 134/70 Blood Pressure Location Lt brachial Position Sitting Pulse 61 Pulse Source Pulse Oximeter Pulse Oximetry (%) 96 Oxygen Delivery Method Room Air Intake Visit Reasons: 2M F/U Intake Note: Pt is here today for a follow up visit. Allergies codeine [CODEINE] Allergy (Intermediate, Verified 06/21/24 10:09) HEADACHES hydrochlorothiazide [HYDROCHLOROTHIAZIDE] Allergy (Intermediate, Verified 06/21/24 10:09) NAUSEA & VOMITING, low K latex [LATEX] Allergy (Intermediate, Verified 06/21/24 10:09) RASH adhesive tape Allergy (Mild, Verified 06/21/24 10:09) Rash lisinopril [LISINOPRIL] Adverse Reaction (Mild, Verified 06/21/24 10:09) COUGH Medication List - Last Reconciled 06/21/24 by Silvia Reynoso MD amiodarone 200 mg PO DAILY amlodipine 5 mg PO BID apixaban (Eliquis) 5 mg PO BID atorvastatin 40 mg PO DAILY cholecalciferol (vitamin D3) 25 mcg PO BEDTIME furosemide 20 mg PO DAILY losartan 50 mg PO BID metoprolol tartrate 12.5 mg PO BID nystatin (Nystop) 1 appl topical BID PRN triamcinolone acetonide 0.1% 1 appl topical BID PRN Tobacco use date assessed: 05/24/24 Dental Screening Dental Screen Date: 03/04/24 HPI 2M F/U HPI Details Pt presents for f/u HTN, s/p A fib/A futter/hyperlipid, Pt reports sensation of episodes of pounding of heart waking patient at night on and off. She complains of increased anxiety but denies depression. She has been monitoring her blood pressure at home and after called the academic affairs specialist with high blood pressure readings amlodipine was increased to 5 mg twice a day 1 week ago. Metoprolol has been decreased to 12.5 twice a day 2 weeks ago after patient is Holter showed bradycardia down to 40s. She reports increasing lower extremity swelling the last 2 weeks. She has been taking furosemide daily. Patient completed another Holter monitor yesterday and the results are still pending. [facility] Medical History Cellulitis Osteoporosis Uterine prolapse Rectocele Hyperlipidemia Sinus bradycardia Atrial fibrillation Paroxysmal atrial fibrillation HTN (hypertension) Surgical History History of cholecystectomy Hx of tubal ligation Family History Father CVD (cardiovascular disease) Mother CVD (cardiovascular disease) Diabetes Other Substance use disorder Social History Household Members: Children Housing: House Do you presently have visiting nurse or other home services: No Alcohol intake: unknown Patient Tobacco Use Status: Former Tobacco user Years Smoked: 12 +/- e-Cigarette/Vaping Use: Never Used Second Hand Smoke Exposure: No service: No Current occupational status: retired 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 1. Little interest or pleasure in doing things: not at all 2. Feeling down, depressed, or hopeless: not at all 3. Trouble falling or staying asleep, or sleeping too much: not at all 4. Feeling tired or having little energy: not at all 5. Poor appetite or overeating: not at all 6. Feeling bad about yourself - or that you are a failure or have let yourself or your family down: not at all 7. Trouble concentrating on things, such as reading the newspaper or watching television: not at all 8. Moving or speaking so slowly that other people could have noticed. Or the opposite - being so fidgety or restless that you have been moving around a lot more than usual: not at all 9. Thoughts that you would be better off or of hurting yourself in some way: not at all Total score: 0 Depression Screening Interpretation: Negative Depression Screening Done: Yes [id number] - PHQ-9 Billing: Yes Source: Developed by Drs. Lior Francois, Dee Arango, Jhoan Coronel and colleagues, with an educational simone from [employer]. Thrive Questionnaire Date Thrive assessed: 05/08/24 RENETTA-7 AMB Questionnaire RENETTA-7 Date RENETTA - 7 assessed: 04/18/24 Source: Developed by Drs. Lior Francois, Dee Arango, Jhoan Coronel and colleagues, with an educational simone from [employer]. Review of Systems Const All systems reviewed & are unremarkable except as noted in HPI and below ENT Reports no additional complaints Card Reports no additional complaints Resp Reports no additional complaints GI Reports no additional complaints Reports no additional complaints Physical exam (Primary Care) Vital Signs: Last Vital Signs Pulse 61 06/21/24 10:08 BP 134/70 06/21/24 10:08 Pulse Ox 96 06/21/24 10:08 Oxygen Delivery Method Room Air 06/21/24 10:08 BMI result Body Mass Index 26.6 Tobacco/Smoking Status: Tobacco use Status Tobacco use date assessed 05/24/24 06/21/24 10:04 Patient Tobacco Use Status Former Tobacco user 06/21/24 10:04 Tobacco use type 05/25/24 10:57 e-Cigarette/Vaping Use Never Used 06/21/24 10:04 PHQ-9: PHQ-9 Score PHQ-9: Total score 0 06/21/24 10:19 Depression Screening Interpretation: Negative Thrive Assessment: Date of Thrive Assessment Date Thrive assessed 05/08/24 06/21/24 10:04 Const General: no acute distress HENMT Head: Yes normal to inspection Mouth: Normal oral and palatal mucosa present Throat: Yes posterior oropharynx normal Eyes General: appearance normal, both eyes and all related structures Resp Effort & Inspection: normal respiratory effort Auscultation: clear to auscultation bilaterally Cardio Rate: bradycardic Rhythm: regular rhythm Heart sounds: S1 normal heart sound present and S2 normal heart sound present GI Inspection: Yes normal to inspection Palpation (GI): Soft to palpation Extrem Other: 2+ pitting edema bilaterally Assessment and Plan Assessment & Plan (1) HTN (hypertension): Code(s): I10 - Essential (primary) hypertension Qualifiers: Hypertension type: unspecified Qualified Code(s): I10 - Essential (primary) hypertension Plan: For better blood pressure controlled losartan will be changed to 320 mg of valsartan, patient will continue amlodipine 10 mg a day and furosemide, basic metabolic panel will be checked in 1 week (2) Paroxysmal atrial fibrillation: Comment: Rhythm controlled on amiodarone, anticoagulated on warfarin follows up with Cardiology Code(s): I48.0 - Paroxysmal atrial fibrillation Plan: Controlled on amiodarone low dose of metoprolol and Eliquis. Patient will follow-up with Cardiology after Holter (3) Sinus bradycardia: Code(s): R00.1 - Bradycardia, unspecified Plan: Improved on lower dose of metoprolol Orders: Orders Complete Blood Count Auto Diff Today I10 - Essential (primary) hypertension, I48.0 - Paroxysmal atrial fibrillation, R00.1 - Bradycardia, unspecified TSH reflex Free T4 Today I10 - Essential (primary) hypertension, I48.0 - Paroxysmal atrial fibrillation, R00.1 - Bradycardia, unspecified AMB EKG-In Office Today I10 - Essential (primary) hypertension, I48.0 - Paroxysmal atrial fibrillation, I48.92 - Unspecified atrial flutter, Z86.79 - Personal history of other diseases of the circulatory system, Z98.890 - Other specified postprocedural states Comprehensive Met. Panel Today I10 - Essential (primary) hypertension, I48.0 - Paroxysmal atrial fibrillation, R00.1 - Bradycardia, unspecified Medications: New valsartan 320 mg PO DAILY 90 tabs 0RF Discontinued losartan dose increase Discontinued Reason: Doctor's Order 50 mg PO BID 90 tabs 1RF Coding Level of Care Code Est Pt Level 4 (78747) Diagnoses HTN (hypertension) I10 Hypertension type: unspecified Paroxysmal atrial fibrillation I48.0 Sinus bradycardia R00.1
[2024-06-21 10:08] VITALS: BP 134/70; PULSE 61; O2SAT 96; BMI 26.6
== END 2024-06-21 15:56 | disposition home or self-care (01) ==
PROVIDERS: PCP Internal Medicine; Visit Provider Internal Medicine
DX: I10 Essential (primary) hypertension (principal); I48.0 Paroxysmal atrial fibrillation; R00.1 Bradycardia, unspecified

== ENCOUNTER → 2024-06-21 10:03 | Outpatient (BNVA) | payer MEDICARE, SELFPAY | PROVIDERS: PCP Internal Medicine; Visit Provider Internal Medicine ==

== ENCOUNTER 2024-06-21 10:57 | Outpatient (REF) | payer MEDICARE, SELFPAY ==
[2024-06-21 13:42] LABS: MANUAL DIFF FLAG NO
[2024-06-21 13:52] LABS: Basophils Percent Auto 0.6 % (0-2); Eosinophils Absolute Auto 0.1 X10*3/uL (0.0-0.4); Eosinophils Percent Auto 0.7 % (0-4); Hematocrit 43.2 % (37.0-47.0); Hemoglobin 14.4 g/dl (12.0-16.0); Imm Gran Abs Auto 0.02 X10*3/uL (0.00-0.03); Imm Gran Pct Auto 0.3 % (0.0-0.4); Lymphocytes Absolute Auto 2.3 X10*3/uL (1.2-4.9); Lymphocytes Percent Auto 34.4 % (20-40); Mean Corpuscular HGB Conc 33.3 g/dl (31.0-35.0); Mean Corpuscular Hemoglobin 30.2 pg (27.0-33.0); Mean Corpuscular Volume 90.6 fL (80.0-98.0); Mean Platelet Volume 10.2 fL (9.4-12.3); Monocytes Absolute Auto 0.5 X10*3/uL (0.1-1.2); Monocytes Percent Auto 7.4 % (2-11); Neutrophils Absolute Auto 3.8 x10*3/uL (2.0-8.3); Neutrophils Percent Auto 56.6 % (45-73); Platelet Count 228 X10*3/uL (160-400); Red Blood Count 4.77 X10*6/uL (4.20-5.50); Red Cell Distribution Width 13.7 % (11.0-16.0); White Blood Count 6.7 X10*3/uL (4.8-10.8)
[2024-06-21 14:40] LABS: Alanine Aminotransferase 15 U/L (0-31); Albumin Level 4.2 g/dL (3.5-5.0); Alkaline Phosphatase 113 U/L (39-117); Anion Gap 11 (12-20); Aspartate Amino Transferase 17 U/L (5-31); Bilirubin Total 1.3 mg/dL (0.0-1.0); Blood Urea Nitrogen 17 mg/dL (9-16); Calcium 9.9 mg/dL (8.4-10.2); Carbon Dioxide 25 mmol/L (22-29); Chloride 108 mmol/L (96-108); Estimated Glomerular Filt Rate > 60; Glucose Random 106 mg/dL (60-115); Potassium 3.9 mmol/L (3.3-5.1); Sodium 140 mmol/L (135-145); TSH reflex Free T4 1.55 uIU/mL (0.32-4.0)
== END 2024-06-21 10:58 | disposition home or self-care (01) ==
LOC: HO.HMGCLDS 10:57
PROVIDERS: PCP Internal Medicine; Visit Provider Internal Medicine
DX: I10 Essential (primary) hypertension (principal); I48.0 Paroxysmal atrial fibrillation; R00.1 Bradycardia, unspecified; E78.5 Hyperlipidemia, unspecified; Z86.79 Personal history of other diseases of the circulatory system; Z98.890 Other specified postprocedural states
CPT/HCPCS: 36415; 80053; 84443; 85025; 99212

== ENCOUNTER 2024-06-25 | Outpatient (REF) | payer MEDICARE, SELFPAY ==
[2024-06-28 11:39] LABS: FIT1 NEGATIVE (NEGATIVE)
[2024-06-28 11:40] LABS: FIT Int Ctl YES
== END 2024-06-25 00:01 | disposition home or self-care (01) ==
LOC: HO.HMGCLNP
PROVIDERS: Visit Provider Internal Medicine
DX: Z12.11 Encounter for screening for malignant neoplasm of colon (principal); Z12.12 Encounter for screening for malignant neoplasm of rectum
CPT/HCPCS: 82274

== ENCOUNTER 2024-07-12 15:03 | Outpatient (AMB) | payer MEDICARE, SELFPAY ==
--- NOTE | 2024-07-12 15:24 | A.OFFVIS_ITS ---
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: No Allergies codeine [CODEINE] Allergy (Intermediate, Verified 06/21/24 10:09) HEADACHES hydrochlorothiazide [HYDROCHLOROTHIAZIDE] Allergy (Intermediate, Verified 06/21/24 10:09) NAUSEA & VOMITING, low K latex [LATEX] Allergy (Intermediate, Verified 06/21/24 10:09) RASH adhesive tape Allergy (Mild, Verified 06/21/24 10:09) Rash lisinopril [LISINOPRIL] Adverse Reaction (Mild, Verified 06/21/24 10:09) COUGH Medication List - Last Reconciled 07/12/24 by Carson Angelo MD amiodarone 200 mg PO DAILY amlodipine 5 mg PO BID apixaban (Eliquis) 5 mg PO BID atorvastatin 40 mg PO DAILY cholecalciferol (vitamin D3) 25 mcg PO BEDTIME furosemide 20 mg PO DAILY metoprolol tartrate 12.5 mg PO BID nystatin (Nystop) 1 appl topical BID PRN triamcinolone acetonide 0.1% 1 appl topical BID PRN valsartan 320 mg PO DAILY HPI Comments Details: March comes for follow-up. She continues to have symptoms of palpitations at nighttime mostly at nighttime. She says she is very anxious at nighttime and a blood pressure is also elevated at nighttime. During the day when she takes her medications morning in the afternoon and evening the blood pressure is better controlled and late evening the blood pressure starts rising again. She is taking all her medications. She had ablation for atrial flutter in May. She takes amiodarone and is worried about amiodarone toxicity. She is also on full oral anticoagulation with apixaban. [facility] Medical History Cellulitis Osteoporosis Uterine prolapse Rectocele Hyperlipidemia Sinus bradycardia Atrial fibrillation Paroxysmal atrial fibrillation HTN (hypertension) Surgical History History of cholecystectomy Hx of tubal ligation Family History Father CVD (cardiovascular disease) Mother CVD (cardiovascular disease) Diabetes Other Substance use disorder Social History Household Members: Children Housing: House Do you presently have visiting nurse or other home services: No Alcohol intake: unknown Patient Tobacco Use Status: Former Tobacco user Years Smoked: 12 +/- e-Cigarette/Vaping Use: Never Used Second Hand Smoke Exposure: No service: No Current occupational status: retired 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 Current occupational exposures/hazards: No Cognitive needs: No Hearing needs: No Vision needs: Yes Review of Systems Const Denies chills, Denies fatigue, Denies fever(s), Denies frequent falls, Denies weakness, Denies weight gain and Denies weight loss ENT Denies dizziness Card Denies chest pain, Denies leg edema, Denies lightheadedness, Denies palpitations, Denies dyspnea, Denies dyspnea on exertion, Denies orthopnea and Denies other (loss of consciousness) Resp Denies cough, Denies dyspnea and Denies dyspnea on exertion GI Denies hematochezia and Denies change in stool character Musc Denies abnormal gait, Denies muscle weakness, Denies numbness, Denies radiating pain into limb and Denies tingling Neuro Denies abnormal gait, Denies dizziness, Denies frequent falls, Denies numbness, Denies tingling and Denies weakness Endo Denies fatigue and Denies palpitations Physical Exam Vital Signs: Last Vital Signs Pulse 63 07/12/24 15:25 BP 134/80 07/12/24 15:25 BMI result Body Mass Index 26.8 Const General: cooperative, comfortable, no acute distress, alert and awake Nutritional Appearance: overweight Orientation/consciousness: patient oriented x3 Limitations: no limitations Neck Neck: Yes trachea midline, Yes supple and Yes JVD (Mild abdominal jugular reflux) Resp Effort & Inspection: normal respiratory effort Auscultation: clear to auscultation bilaterally Cardio Jugular venous distension: no JVD Palpation: normal PMI Rate: regular rate Rhythm: regular rhythm Heart sounds: S1 normal heart sound present, S2 normal heart sound present and Other heart sounds present (S4 present) GI Auscultation: normal bowel sounds Skin General skin exam: no rashes or lesions noted Neuro General: patient oriented x3 and no focal motor deficits Extrem General: No clubbing, No cyanosis and Yes edema (2+ bilateral below knee) Psych Appearance: grossly normal Affect: Anxious affect present Office Procedures EKG Details: EKG shows normal sinus rhythm with nonspecific T-wave changes with prolonged QT mildly [id number], Complete Assessment & Plan Assessment & Plan (1) Paroxysmal atrial fibrillation: Comment: Rhythm controlled on amiodarone, anticoagulated on warfarin follows up with Cardiology Code(s): I48.0 - Paroxysmal atrial fibrillation Category: Medical Plan: Paroxysmal atrial fibrillation has recent flutter which was difficult control status post ablation. No clear evidence of recurrent flutter. Currently appears to be sinus rhythm. However at nighttime she has symptoms of strong heartbeats with regular beating at about 83 beats per minute higher than her usual baseline heart rate. Less likely that she has recurrent atrial arrhythmias. More likely that this is probably related to anxiety and/or elevated blood pressure. Advised stress mitigation strategies. Continue amiodarone for now. Continue full oral anticoagulation, currently on Eliquis 5 mg b.i.d.. Better control blood pressure, see below. 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 Will split her valsartan to 160 mg b.i.d. for better control throughout the day. Advised to continue monitor blood pressure at home maintain a log. Low-salt diet was discussed. Stress mitigation strategies especially at nighttime was discussed. Further treatment based on the finding of responsive blood pressure therapy change. Will follow up in the clinic in 6 months time, sooner p.r.n.. Thank you for allowing me to partake in the care Medications: Changed From valsartan 320 mg PO DAILY 90 tabs 0RF To valsartan 160 mg (1/2 x 320 mg) PO BID 90 tabs 0RF Coding Level of Care Code Est Pt Level 4 (24670) Complex EM visit Add On G2211 Diagnoses Paroxysmal atrial fibrillation I48.0 HTN (hypertension) I10 Hypertension type: unspecified CPT Codes EKG - CPT: 64995-[id number], Complete ([id number])
[2024-07-12 15:25] VITALS: BP 134/80; PULSE 63; BMI 26.8
== END 2024-07-12 15:54 | disposition home or self-care (01) ==
PROVIDERS: PCP Internal Medicine; Visit Provider Internal Medicine Cardiovascular Disease
DX: I48.0 Paroxysmal atrial fibrillation (principal); I10 Essential (primary) hypertension
CPT/HCPCS: 93010; 99214; G2211

== ENCOUNTER → 2024-07-12 15:03 | Outpatient (BNVA) | payer MEDICARE, SELFPAY | PROVIDERS: PCP Internal Medicine; Visit Provider Internal Medicine Cardiovascular Disease | DX: I48.0 Paroxysmal atrial fibrillation (principal); I10 Essential (primary) hypertension | CPT/HCPCS: 93005; 99212 ==

== ENCOUNTER 2024-08-02 09:44 | Outpatient (REF) | payer MEDICARE, SELFPAY ==
[2024-08-02 14:02] LABS: Anion Gap 12 (12-20); Blood Urea Nitrogen 19 mg/dL (9-16); Calcium 9.7 mg/dL (8.4-10.2); Carbon Dioxide 26 mmol/L (22-29); Chloride 104 mmol/L (96-108); Estimated Glomerular Filt Rate 53; Glucose Random 114 mg/dL (60-115); Potassium 4.2 mmol/L (3.3-5.1); Sodium 138 mmol/L (135-145)
[2024-08-02 14:17] LABS: B Type Natriuretic Peptide 44 pg/mL (<100)
== END 2024-08-02 09:45 | disposition home or self-care (01) ==
LOC: HO.HMGCLDS 09:44
PROVIDERS: PCP Internal Medicine; Visit Provider Internal Medicine
DX: I10 Essential (primary) hypertension (principal); R06.02 Shortness of breath; E78.5 Hyperlipidemia, unspecified; I48.0 Paroxysmal atrial fibrillation; I48.92 Unspecified atrial flutter; R60.9 Edema, unspecified
CPT/HCPCS: 36415; 80048; 83880; 99212

== ENCOUNTER 2024-08-02 09:44 | Outpatient (AMB) | payer MEDICARE, SELFPAY ==
[2024-08-02 09:52] VITALS: BP 138/78; PULSE 58; O2SAT 96; BMI 27.0
--- NOTE | 2024-08-02 09:52 | MHC.PC.OV ---
Vital Signs 08/02/24 09:52 Height 5 ft 5 in Weight 162 lb BMI 27.0 BP 138/78 Blood Pressure Location Lt brachial Position Sitting Pulse 58 Pulse Source Pulse Oximeter Pulse Oximetry (%) 96 Oxygen Delivery Method Room Air Intake Visit Reasons: 6 week follow up Intake Note: Pt is here today for 6 weeks follow up visit. Allergies codeine [CODEINE] Allergy (Intermediate, Verified 08/02/24 09:59) HEADACHES hydrochlorothiazide [HYDROCHLOROTHIAZIDE] Allergy (Intermediate, Verified 08/02/24 09:59) NAUSEA & VOMITING, low K latex [LATEX] Allergy (Intermediate, Verified 08/02/24 09:59) RASH adhesive tape Allergy (Mild, Verified 08/02/24 09:59) Rash lisinopril [LISINOPRIL] Adverse Reaction (Mild, Verified 08/02/24 09:59) COUGH Medication List - Last Reconciled 08/02/24 by Silvia Reynoso MD amiodarone 200 mg PO DAILY amlodipine 5 mg PO BID apixaban (Eliquis) 5 mg PO BID atorvastatin 40 mg PO DAILY cholecalciferol (vitamin D3) 25 mcg PO BEDTIME furosemide 20 mg PO DAILY metoprolol tartrate 12.5 mg PO BID nystatin (Nystop) 1 appl topical BID PRN triamcinolone acetonide 0.1% 1 appl topical BID PRN valsartan 160 mg (1/2 x 320 mg) PO BID Tobacco use date assessed: 08/02/24 Dental Screening Dental Screen Date: 03/04/24 HPI 6 week follow up HPI Details Patient presents for the follow-up of hypertension hyperlipidemia history of AFib. Patient reports blood pressure better controlled but still has not episodes of feeling her heart pounding and feeling anxious. Patient has been physically active, walking regularly and denies exercise induced palpitations, chest pain or shortness for breath. [facility] Medical History Cellulitis Osteoporosis Uterine prolapse Rectocele Hyperlipidemia Sinus bradycardia Atrial fibrillation Paroxysmal atrial fibrillation HTN (hypertension) Surgical History History of cholecystectomy Hx of tubal ligation Family History Father CVD (cardiovascular disease) Mother CVD (cardiovascular disease) Diabetes Other Substance use disorder Social History Household Members: Children Housing: House Do you presently have visiting nurse or other home services: No Alcohol intake: unknown Patient Tobacco Use Status: Former Tobacco user Years Smoked: 12 +/- e-Cigarette/Vaping Use: Never Used Second Hand Smoke Exposure: No service: No Current occupational status: retired 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 Current occupational exposures/hazards: No Cognitive needs: No Hearing needs: No Vision needs: Yes Questionnaire Thrive Questionnaire Date Thrive assessed: 04/18/24 I am a: Patient What is your living situation today?: I have a steady place to live Within the past 12 months, did the food you bought not last and you didn't have the money to get more?: Never true Within the past 12 months, did you worry whether your food would run out before you got money to buy more?: Never true Do you have trouble paying for medicines?: No Do you have trouble getting transportation to medical appointments?: No Do you have trouble paying your heating and electricity bill?: No Do you have trouble taking care of your child, family member or friend?: No Do you have trouble with day-to-day activities such as bathing, preparing meals, shopping, managing finances, etc.?: No Are you currently unemployed and looking for a job?: No Are you interested in more education?: No Please select the resources that you would like help with: None Currently or been in a relationship where the following occur: No concerns reported THRIVE Score: 0 RENETTA-7 AMB Questionnaire RENETTA-7 Date RENETTA - 7 assessed: 04/18/24 Source: Developed by Drs. Lior Francois, Dee Arango, Jhoan Coronel and colleagues, with an educational simone from [employer]. Review of Systems Const All systems reviewed & are unremarkable except as noted in HPI and below ENT Reports no additional complaints Card Reports no additional complaints Resp Reports no additional complaints GI Reports no additional complaints Reports no additional complaints Physical exam (Primary Care) Vital Signs: Last Vital Signs Pulse 58 08/02/24 09:52 BP 138/78 08/02/24 09:52 Pulse Ox 96 08/02/24 09:52 Oxygen Delivery Method Room Air 08/02/24 09:52 BMI result Body Mass Index 27.0 Tobacco/Smoking Status: Tobacco use Status Tobacco use date assessed 08/02/24 08/02/24 09:59 Patient Tobacco Use Status Former Tobacco user 08/02/24 09:54 Tobacco use type 05/25/24 10:57 e-Cigarette/Vaping Use Never Used 08/02/24 09:54 Thrive Assessment: Date of Thrive Assessment Date Thrive assessed 04/18/24 08/02/24 09:54 Currently or been in a relationship where the following occur: No concerns reported Const General: no acute distress HENMT Face and sinus: Yes normal facial exam Neck Neck: Yes supple Resp Effort & Inspection: normal respiratory effort Auscultation: clear to auscultation bilaterally Cardio Rhythm: regular rhythm Heart sounds: S1 normal heart sound present and S2 normal heart sound present GI Inspection: Yes normal to inspection Palpation (GI): Soft to palpation Extrem Other: 2+ pitting edema bilaterally Coding Level of Care Code Est Pt Level 4 (76547) Diagnoses HTN (hypertension) I10 Hypertension type: unspecified Hyperlipidemia E78.5 Paroxysmal atrial fibrillation I48.0 Edema R60.9 Assessment & Plan Assessment & Plan (1) HTN (hypertension): Code(s): I10 - Essential (primary) hypertension Category: Medical Qualifiers: Hypertension type: unspecified Qualified Code(s): I10 - Essential (primary) hypertension Plan: Continue current medications (2) Hyperlipidemia: Code(s): E78.5 - Hyperlipidemia, unspecified Category: Medical Plan: Continue statin (3) Paroxysmal atrial fibrillation: Comment: Status post ablation, Rhythm controlled on amiodarone, anticoagulated follows up with Cardiology Code(s): I48.0 - Paroxysmal atrial fibrillation Category: Medical Plan: Continue current medications follow-up with the Cardiology (4) Edema: Comment: 2+ lower extremities, on 10 mg of amlodipine Code(s): R60.9 - Edema, unspecified Category: Medical Plan: Continue furosemide, patient was advised to wear compression knee-highs during a day Orders: Orders Basic Metabolic Panel Today I10 - Essential (primary) hypertension B Type Natriuretic Peptide Today I10 - Essential (primary) hypertension, R06.02 - Shortness of breath Comprehensive [place]. Panel Fast 2 Months E78.5 - Hyperlipidemia, unspecified, I10 - Essential (primary) hypertension, I48.92 - Unspecified atrial flutter TSH reflex Free T4 2 Months E78.5 - Hyperlipidemia, unspecified, I10 - Essential (primary) hypertension, I48.92 - Unspecified atrial flutter Lipid Panel 2 Months E78.5 - Hyperlipidemia, unspecified, I10 - Essential (primary) hypertension, I48.92 - Unspecified atrial flutter Complete Blood Count Auto Diff 2 Months E78.5 - Hyperlipidemia, unspecified, I10 - Essential (primary) hypertension, I48.92 - Unspecified atrial flutter Medications: New sertraline 25 mg PO DAILY 30 tabs 2RF
== END 2024-08-02 10:36 | disposition home or self-care (01) ==
LOC: HO.HMCC 09:45
PROVIDERS: PCP Internal Medicine; Visit Provider Internal Medicine
DX: I10 Essential (primary) hypertension (principal); E78.5 Hyperlipidemia, unspecified; I48.0 Paroxysmal atrial fibrillation; R60.9 Edema, unspecified

== ENCOUNTER → 2024-08-25 08:15 | Outpatient (REF) | payer MEDICARE, SELFPAY ==
--- NOTE | 2024-08-25 08:19 | HM_ITS ---
* Total monitoring time 2 days. * Underlying rhythm is sinus with an average rate of 56/Min. About 78% of the time, rate < 60/Min. * Rare supraventricular arrhythmias. * No significant pauses or high-grade AV blocks. * Patient markers used in association with sinus rhythm. * Palpitations in patient diary correlates with sinus bradycardia. MTDD
== END ==
LOC: HO.CARD 08:15
PROVIDERS: PCP Internal Medicine; Visit Provider Internal Medicine Cardiovascular Disease
DX: I48.92 Unspecified atrial flutter (principal)
CPT/HCPCS: 93225

== ENCOUNTER → 2024-08-25 08:19 | Outpatient (BNV) | payer MEDICARE, SELFPAY | PROVIDERS: PCP Internal Medicine; Visit Provider Internal Medicine | DX: I47.10 Supraventricular tachycardia, unspecified (principal) | CPT/HCPCS: 93227 ==

== ENCOUNTER 2024-09-07 09:16 | Outpatient (AMB) | payer MEDICARE, SELFPAY ==
--- NOTE | 2024-09-07 09:40 | MHC.OFFWIV ---
Intake Vital Signs 09/07/24 09:45 Weight 160 lb BP 138/80 Blood Pressure Location Lt brachial Position Sitting Pulse 58 Pulse Source Pulse Oximeter Pulse Oximetry (%) 98 Oxygen Delivery Method Room Air Intake Visit Reasons: EP-bilateral eyes yellow discharge Intake Note: Patient here for right eye yellow discharge that started yesterday. Patient Tobacco Use Status: Former Tobacco user Allergies codeine [CODEINE] Allergy (Intermediate, Verified 09/07/24 09:45) HEADACHES hydrochlorothiazide [HYDROCHLOROTHIAZIDE] Allergy (Intermediate, Verified 09/07/24 09:45) NAUSEA & VOMITING, low K latex [LATEX] Allergy (Intermediate, Verified 09/07/24 09:45) RASH adhesive tape Allergy (Mild, Verified 09/07/24 09:45) Rash lisinopril [LISINOPRIL] Adverse Reaction (Mild, Verified 09/07/24 09:45) COUGH Do you need a note to return to daycare/school/sports/work: No HPI HPI Comments History of Present Illness Details History of Present Illness The patient is an 84-year-old female presenting with eye discomfort and a bloody appearance in her eyes. The right eye exhibited a bloody appearance yesterday. The patient reported seeing yellow material in the eye but denied any discharge. The patient experiences itchiness in the eyes without significant pain. The condition is not associated with any noticeable vision changes. These symptoms started mostly in the right eye, with the left eye beginning to show discomfort this morning. She describes it as feeling like something is in the eye. The patient takes a blood thinner and has communicated with her profile saw operator but was advised that the eye condition may not be a cause for concern. There are no known incidents of foreign object exposure to the eyes. Previous interventions are not mentioned, and no other factors were identified as alleviating or aggravating the condition beyond the described symptomatology. Patient does not wear contacts and does not have an ophathmalogist. [facility] Medical History Cellulitis Osteoporosis Uterine prolapse Rectocele Hyperlipidemia Sinus bradycardia Atrial fibrillation Paroxysmal atrial fibrillation HTN (hypertension) Surgical History History of cholecystectomy Hx of tubal ligation Family History Father CVD (cardiovascular disease) Mother CVD (cardiovascular disease) Diabetes Other Substance use disorder Social History Household Members: Children Housing: House Do you presently have visiting nurse or other home services: No Alcohol intake: unknown Patient Tobacco Use Status: Former Tobacco user Years Smoked: 12 +/- e-Cigarette/Vaping Use: Never Used Second Hand Smoke Exposure: No service: No Current occupational 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: 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 Current occupational exposures/hazards: No Cognitive needs: No Hearing needs: No Vision needs: Yes Review of Systems Const All systems reviewed & are unremarkable except as noted in HPI and below Physical Exam Vital Signs: Last Vital Signs Pulse 58 09/07/24 09:45 BP 138/80 09/07/24 09:45 Pulse Ox 98 09/07/24 09:45 Oxygen Delivery Method Room Air 09/07/24 09:45 Const General: cooperative, healthy appearing, comfortable, no acute distress and well developed Orientation/consciousness: patient oriented x3 Limitations: no limitations HEENT Head: Yes normal to inspection Ears: hearing grossly normal bilaterally General nose exam: Normal external nose present Face and sinus: Yes normal facial exam Eyes General: appearance normal, both eyes and all related structures Eyes/upper lids images: 1. small corneal abrasion seen under fluorescein 2. Small corneal abrasion seen under fluorescein Neck Neck: Yes normal visual inspection and Yes full ROM Resp Effort & Inspection: normal respiratory effort and able to speak in complete sentences Skin General skin exam: no rashes or lesions noted Neuro General: patient oriented x3 Extrem General: Yes normal to inspection Office Procedures Fluorescein eye exam Details: Applied 2 drops of tetracaine to each eye for numbing, then applied fluorescein dye and under blue light, observed one small corneal abrasion in the medial aspect of each eye Assessment & Plan Assessment & Plan (1) Corneal abrasion of both eyes: Code(s): S05.01XA - Injury of conjunctiva and corneal abrasion without foreign body, right eye, initial encounter; S05.02XA - Injury of conjunctiva and corneal abrasion without foreign body, left eye, initial encounter Qualifiers: Encounter type: initial encounter Qualified Code(s): S05.01XA - Injury of conjunctiva and corneal abrasion without foreign body, right eye, initial encounter; S05.02XA - Injury of conjunctiva and corneal abrasion without foreign body, left eye, initial encounter Plan: Corneal Abrasion, Right Eye: Initiate treatment with erythromycin ophthalmic ointment. The patient is instructed to apply a ribbon of ointment approximately half a centimeter in length into each eye, four times daily. The application may cause temporary blurring of vision, and the patient is advised to sit and rest after application to avoid falls, especially considering her use of blood thinners. Treatment duration will be seven days. Corneal Abrasion, Left Eye: Similar management approach is applied as with the right eye. The same erythromycin ophthalmic ointment regimen is recommended to aid in healing the abrasion. The patient should adhere to the same precautionary measures regarding temporary vision blurring after ointment application. If patient experiences any vision changes or pain in her eye, she was instructed to go to the emergency department. Patient was informed and verbally consented to the use of an ambient scribe for clinic note documentation during this visit. Medications: New erythromycin Apply to left eye and right eye 4 times a day while awake 0.5 inches ophthalmic (eye) QID 7 grams 0RF Coding Level of Care Code Est Pt Level 4 (50786) Diagnoses Bilateral corneal abrasions, initial encounter S05.01XA; S05.02XA Encounter type: initial encounter
[2024-09-07 09:45] VITALS: BP 138/80; PULSE 58; O2SAT 98
--- OUTSIDE RECORDS SUMMARY | 2024-09-13 17:00 | XMS_ITS ---
Author Organization [facility] Address [address] [facility] [address] [place] [address] Care Team Providers Care Floor Press Operator Name Role Phone Silvia Reynoso Primary Care Provider GAVI Fernández Unavailable [phone] ALLERGIES Allergen (clinical drug ingredient) Drug/Non Drug Allergy documented on EMR Reaction Allergy Type Onset Date Status Codeine Phosphate Unknown Drug Allergy Active hydrochlorothiazide Hydrochlorothiazide Unknown Drug Aller gy Active lisinopril Lisinopril Unknown Drug Allergy Activ e REASON FOR VISIT 3 month f/u MEDICATIONS Medication SIG (Take, Route, Frequency, Duration) Notes Start Date End Date Status Clotrimazole 1 % 1 application Externally Twice a day Not-Taking Loratadine 10 MG 1 tablet Orally Once a day to effected area 2 times daily Not-Taking Ciclopirox 0.77% cream. Apply to the effected nail once daily untill resolved Not-Taking Hydrocortisone 2.5 % 1 application Externally Once a day prn Not-Taking Cholecalciferol 1000 units. Take 1 cap po daily Active amLODIPine Besylate 10 MG 1 tablet Orally Once a day Active Metoprolol Tartrate 25 MG 1 tablet with food Orally Twice a day Active Famotidine 20 MG 1 tablet at bedtime as needed Orally bid Not-Taking Losartan Potassium 25 MG 2 tablet Orally Once a day Active Warfarin Sodium 2.5 MG 1 tablet Orally Once a day Active Atorvastatin Calcium 40 MG 1 tablet Orally Once a day Active Multaq 400 MG 1 tablet with meals Orally Twice a day Active Ciclopirox 0.77 % 1 application Externally Once a day for 90 days Active Furosemide 20 MG 1 tablet Orally Once a day PRN Active VITAL SIGNS Weight 169.2 lbs 02/01/2024 Height 61in in 02/01/2024 BMI 31.97 kg/m2 02/01/2024 Heart Rate 68 /min 02/01/2024 Temperature 96.1 degrees Fahrenheit 02/01/20 Respiratory Rate 16 /min 02/01/2024 Encounters Encounter Location Date Provider Diagnosis [facility] [address] [facility] [address] [place] [address] 02/01/2024 GAVI HOWARD Pain in left toe(s) M79.675 ; Onychomycosis B35.1 ; Pain in right toe(s) M79.674 and Other specified peripheral vascular diseases I73.89 ASSESSMENTS Encounter Date Diagnosis Assessment Notes Treatment Notes Treatment Clinical Notes Section Notes 02/01/2024 Pain in left toe(s) (ICD-10 - M79.675) 02/01/2024 Onychomycosis (ICD-10 - B35.1) I reviewed with the patient various treatment methods for toenail fungus including: topical, oral, laser, and removal of the infected toenails. I explained to the patient that she should start to slowly see results. She has about 97% improvement and would like to continue the current treatment. Continue Ciclopirox to apply to each affected toenail daily. I reviewed with the patient proper nail care and how to conservatively treat ingrown toenails by cutting the nail straight across, and to soak the feet. I aseptically debrided all ten toenails with a tube cutter and curette; pt tolerated well. 02/01/2024 Pain in right toe(s) (ICD-10 - M79.674) 02/01/2024 Other specified peripheral vascular diseases (ICD-10 - I73.89) She has increased leg swelling on examination today. I will defer to her PCP care team as they started a work up for this issue. She can wear compression stockings as needed for any lower extremity edema. Avoid high salt intake and elevate the feet periodically throughout the day. PLAN OF TREATMENT Medication Medication Name Sig Start Date Stop Date Notes Ciclopirox 0.77 % 1 application Supervisor Shipping Room ally Once a day for 90 days Next Appt Details Follow Up: 3 Months, Reason: Provider Name:GAVI HOWARD, 11/07/2024 08:00:00 AM, [address] [facility], [facility] [address], [place], [place], , Progress Notes * Laurel ARVIZUDOB:1940 (83 yo F)Acc No.[id number]:02/01/2024 Patient:??Laurel ARVIZU Provider:??Gavi Howard DPM :1940?Age:83 Y?Sex:Fe male Date:02/01/2024 Address:[address] [place], [place] [id number] Pcp:Silvia Reynoso Subjective: * Chief Complaints: * ?3 month f/u * HPI: ?Constitutional:? This 83 y/o female returns to my office as a follow up to toenail fungus. She states the fungus on the left big toenail is pretty much resolved. She also has a small callus on the side of the big toe on the left side, but it is not painful. She complains of thick long painful toenails of both feet. She has no other foot complaints this visit. Her last visit with her PCP care team was 2 months ago. Allergies and medical history reviewed. * ROS:?GENERAL: Pt denies nausea, fever, vomiting, chills, or shortness of breath. Pt in NAD. ALLERGY: patient denies any new allergy HEME/ONC: patient denies any bleeding or clotting disorders CARDIOLOGY: pt denies chest pain, palpitations LUNGS: pt denies shortness of breath ABDOMEN: patient denies any bloating, abdominal pain, or swelling MUSCULOSKELETAL: See HPI, patient is having left shoulder pain after a fall yesterday SKIN: see HPI, otherwise no lesions, rash or itching NEURO: No persistent headache, weakness or numbness PSYCH: patient denies any current anxiety or depression The remainder of the review of systems is noncontributory. * Medical History:?? * Surgical History:??endoscopy colonoscopy tubal ligation eye surgery * Hospitalization/Major Diagno stic Procedure:??vaginal delivery 1960vaginal delivery 1963vaginal delivery 1967vaginal delivery 1972 * Family History:??Mother: dec eased, diabetes mellitus.?? * Social History:?former smoker 0.5 pack/day quit in 1972 Alcohol: no. * Medications:??TakingFurosemi de 20 MG Tablet 1 tablet Orally Once a day , Notes to Pharmacist: PRNMultaq 400 MG Tablet 1 tablet with meals Orally Twice a day Atorvastatin Calcium 40 MG Tablet 1 tablet Orally Once a day Losartan Potassium 25 MG Tablet 2 tablet Orally Once a day Metoprolol Tartrate 25 MG Tablet 1 tablet with food Orally Twice a day amLODIPine Besylate 10 MG Tablet 1 tablet Orally Once a day Warfarin Sodium 2.5 MG Tablet 1 tablet Orally Once a day Cholecalciferol , Notes to Pharmacist: 1000 units. Take 1 cap po dailyCiclopirox 0.77 % Gel 1 application Externally Once a day Taking Furosemide 20 MG Tablet 1 tablet Orally Once a day , Notes to Pharmacist: PRNTaking Multaq 400 MG Tablet 1 tablet with meals Orally Twice a day Taking Atorvastatin Calcium 40 MG Tablet 1 tablet Orally Once a day Taking Losartan Potassium 25 MG Tablet 2 tablet Orally Once a day Taking Metoprolol Tartrate 25 MG Tablet 1 tablet with food Orally Twice a day Taking amLODIPine Besylate 10 MG Tablet 1 tablet Orally Once a day Taking Warfarin Sodium 2.5 MG Tablet 1 tablet Orally Once a day Taking Cholecalciferol , Notes to Pharmacist: 1000 units. Take 1 cap po dailyTaking Ciclopirox 0.77 % Gel 1 application Externally Once a day Not-TakingFamotidine 20 MG Tablet 1 tablet at bedtime as needed Orally bid Hydrocortisone 2.5 % Ointment 1 application Externally Once a day , Notes to Pharmacist: prnCiclopirox , Notes to Pharmacist: 0.77% cream. Apply to the effected nail once daily untill resolvedLoratadine 10 MG Tablet 1 tablet Orally Once a day , Notes to Pharmacist: to effected area 2 times dailyClotrimazole 1 % Cream 1 application Externally Twice a day Medication List reviewed and reconciled with the patientNot-Taking Famotidine 20 MG Tablet 1 tablet at bedtime as needed Orally bid Not-Taking Hydrocortisone 2.5 % Ointment 1 application Externally Once a day , Notes to Pharmacist: prnNot-Taking Ciclopirox , Notes to Pharmacist: 0.77% cream. Apply to the effected nail once daily untill resolvedNot-Taking Loratadine 10 MG Tablet 1 tablet Orally Once a day , Notes to Pharmacist: to effected area 2 times dailyNot-Taking Clotrimazole 1 % Cream 1 application Externally Twice a day Medication List reviewed and reconciled with the patient * Allergies:??LisinoprilHydroc hlorothiazideCodeine Phosphateno[Allergies Verified] Objective: * Vitals:??Wt: 169.2 lbs, Ht: 61in, BMI: 31.97 Index, HR: 68 /min, Temp: 96.1 F, RR: 16 /min, Ht-cm: 154.94, Wt-k.75 kg. * Examination: ?General Examination: ?VASCULAR: Dorsalis pedis pulses are 1/4 bilaterally and Posterior tibial pulses are 1/4 bilaterally. Capillary filling time within normal limits the digits. No pallor on elevation or rubor on dependency. No hair growth. Varicosities of the legs. Denies rest pain or claudication pain. Edema of the legs equal on both sides. ?NEUROLOGICAL: Sharp/dull sensation intact, protective sensation intact 10/10 with 5.07 [place] bilaterally, vibratory sensation with tuning fork intact to the tibial tuberosity. ?ORTHOPEDIC: Good muscle strength 4+/5 of all flexors and extensors. Dorsi flexion of ankle ,10 degrees, plantar flexion WNL. No muscle atrophy. Hallux valgus bilaterally, no pain on palpation or on ROM. Pes planus. ?DERMATOLOGICAL: Diffuse hyperkeratotic lesion medial hallux left foot. Normal skin temperature, normal skin turgor. Incurvated thickened 3 mm right and left hallux toenails and 3rd toenails of the medial and lateral borders with edema and tenderness; with subungual debris and yellowish/orange discoloration with tenderness on palpation with 97% proximal clearance. ?SHOES:sneakers with compression stockings. Assessment: * Assessment: 1.??Onychomycosis - B35.1 (P rimary)??2.??Pain in left toe(s) - M79.675??3.??Pain in right toe(s) - M79.674??4.??Other specified peripheral vascular diseases - I73.89?? Plan: * Treatment: 2.??Other specified peripher al vascular diseases?? Clinical Notes: She has increased leg swelling on examination today. I will defer to her PCP care team as they started a work up for this issue. She can wear compression stockings as needed for any lower extremity edema. Avoid high salt intake and elevate the feet periodically throughout the day.? * Procedure Codes:??26099 DEBR MATTIE NAIL, 6 OR MORE * Follow Up:??3 Months * Billing Information: * Visit Code:?? * Procedure Codes:?? 12110 DEBRIDE NAIL, 6 OR MORE. * Sign off status: Completed true * Provider:??Gavi Howard DPM Date: ??02/01/2024 History and Physical Notes * HPI (History of Present Illness) Category Sub-Category Detail Notes Category Not es Constitutional This 83 y/o f eileen returns to my office as a follow up to toenail fungus. She states the fungus on the left big toenail is pretty much resolved. She also has a small callus on the side of the big toe on the left side, but it is not painful. She complains of thick long painful toenails of both feet. She has no other foot complaints this visit. Her last visit with her PCP care team was 2 months ago. Allergies and medical history reviewed. Examination Category Sub-Category Detail Notes Category Not es General Examination VASCULAR: Dorsalis pedis pulses are 1/4 bilaterally and Posterior tibial pulses are 1/4 bilaterally. Capillary filling time within normal limits the digits. No pallor on elevation or rubor on dependency. No hair growth. Varicosities of the legs. Denies rest pain or claudication pain. Edema of the legs equal on both sides. NEUROLOGICAL: Sharp/dull sensation intact, protective sensation intact 10/10 with 5.07 [place] bilaterally, vibratory sensation with tuning fork intact to the tibial tuberosity. ORTHOPEDIC: Good muscle strength 4+/5 of all flexors and extensors. Dorsi flexion of ankle ,10 degrees, plantar flexion WNL. No muscle atrophy. Hallux valgus bilaterally, no pain on palpation or on ROM. Pes planus. DERMATOLOGICAL: Diffuse hyperkeratotic lesion medial hallux left foot. Normal skin temperature, normal skin turgor. Incurvated thickened 3 mm right and left hallux toenails and 3rd toenails of the medial and lateral borders with edema and tenderness; with subungual debris and yellowish/orange discoloration with tenderness on palpation with 97% proximal clearance. SHOES:sneakers with compression stockings
--- OUTSIDE RECORDS SUMMARY | 2024-09-13 17:00 | XMS_ITS ---
Author Organization [facility] Address [address] [facility] [address] [place] [address] Care Team Providers Care Scooper Name Role Phone Silvia Reynoso Primary Care Provider GAVI Fernández Unavailable [phone] ALLERGIES Allergen (clinical drug ingredient) Drug/Non Drug Allergy documented on EMR Reaction Allergy Type Onset Date Status Codeine Phosphate Unknown Drug Allergy Active hydrochlorothiazide Hydrochlorothiazide Unknown Drug Aller gy Active lisinopril Lisinopril Unknown Drug Allergy Activ e REASON FOR VISIT 3 month f/u MEDICATIONS Medication SIG (Take, Route, Frequency, Duration) Notes Start Date End Date Status Ciclopirox 0.77 % 1 application Externally Once a day for 90 days Active Diclofenac Sodium 1 % 1gm to the left foot Externally twice daily as needed for 30 days Active Warfarin Sodium 2.5 MG 1 tablet Orally Once a day Not-Taking amLODIPine Besylate 10 MG 1 tablet Orally Once a day Active Metoprolol Tartrate 25 MG 1 tablet with food Orally Twice a day Active Losartan Potassium 25 MG 2 tablet Orally Once a day Not-Taking Atorvastatin Calcium 40 MG 1 tablet Orally Once a day Active Multaq 400 MG 1 tablet with meals Orally Twice a day Not-Taking Furosemide 20 MG 1 tablet Orally Once a day PRN Active Valsartan 320 MG 1 tablet Orally Once a day Active Clotrimazole 1 % 1 application Externally Twice a day Not-Taking Loratadine 10 MG 1 tablet Orally Once a day to effected area 2 times daily Not-Taking Ciclopirox 0.77% cream. Apply to the effected nail once daily untill resolved Not-Taking Hydrocortisone 2.5 % 1 application Externally Once a day prn Not-Taking Eliquis 5 MG as directed Orally BID Active Famotidine 20 MG 1 tablet at bedtime as needed Orally bid Not-Taking Cholecalciferol 1000 units. 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 08/05/2024 Pain in left toe(s) (ICD-10 - M79.675) 08/05/2024 Onychomycosis (ICD-10 - B35.1) I reviewed with [...] aseptically debrided all ten toenails with a cutter woodwind reeds and curette; pt tolerated well. 08/05/2024 Pain in right toe(s) (ICD-10 - M79.674) 08/05/2024 Other specified peripheral vascular diseases (ICD-10 - I73.89) She has increased leg swelling on examination today. I will defer to her PCP care team as they started a work up for this issue. She can wear compression stockings as needed for any lower extremity edema. Avoid high salt intake and elevate the feet periodically throughout the day. 08/05/2024 Blister of second toe (ICD-10 - S90.426A) The right 2nd toe blister is healing without incident. No further treatment required at this time. PLAN OF TREATMENT Medication Medication Name Sig Start Date Stop Date Notes Ciclopirox 0.77 % 1 application Public Health Administrator ally Once a day for 90 days Diclofenac Sodium 1 % 1gm to the left fo ot Externally twice daily as needed for 30 days Treatment Notes Assessment Notes Arthritis of left foot RX given for dicl ofenac gel to apply to the left big toe joint as needed for arthritic pain. Blister of second toe The right 2nd toe blister is healing without incident. No further treatment required at this time. Next Appt Details Follow Up: 3 Months, Reason: Provider Name:GAVI HOWARD, 11/07/2024 08:00:00 AM, [address] [address], [place], [address], Progress Notes * Laurel ARVIZUDOB:1940 (84 yo F)Acc No.[id number]:08/05/2024 Patient:??Laurel ARVIZU Provider:??Gavi Howard DPM :1940?Age:84 Y?Sex:Fe male Date:08/05/2024 Address:[address] [place], [place] [id number] Pcp:Silvia Reynoso Subjective: * Chief Complaints: * ?3 month f/u * HPI: ?Constitutional:? This 84 y/o female returns to my office as a follow-up to toenail fungus. She has a new issue of a blister of the right 2nd toe. She states the area is not painful. She has no redness or swelling of the toe. She states the fungus on the left big toenail is pretty much resolved. She also has a small callus on the side of the big toe on the left side, but it is not painful. She complains of thick long painful toenails of both feet. She also notes occasional pain in the left big toe for the last 2 weeks. She states it is not every day. She states it is an aching pain. She denies any injury or trauma. She has no other foot complaints this visit. Her last visit with her PCP care team was 3 months ago. Allergies and medical history reviewed. [...] delivery 1960vaginal delivery 1963vaginal delivery 1967vaginal delivery 1972sepsis 05/2024 * Family History:??Mother: dec eased, diabetes mellitus.?? * Social History:?former smoker 0.5 pack/day quit in 1972 Alcohol: no. * Medications:??TakingEliquis 5 MG Tablet as directed Orally , Notes to Pharmacist: BIDValsartan 320 MG Tablet 1 tablet Orally Once a day Furosemide 20 MG Tablet 1 tablet Orally Once a day , Notes to Pharmacist: PRNAtorvastatin Calcium 40 MG Tablet 1 tablet Orally Once a day Metoprolol Tartrate 25 MG Tablet 1 tablet with food Orally Twice a day amLODIPine Besylate 10 MG Tablet 1 tablet Orally Once a day Cholecalciferol , Notes to Pharmacist: 1000 units. Take 1 cap po dailyTaking Eliquis 5 MG Tablet as directed Orally , Notes to Pharmacist: BIDTaking Valsartan 320 MG Tablet 1 tablet Orally Once a day Taking Furosemide 20 MG Tablet 1 tablet Orally Once a day , Notes to Pharmacist: PRNTaking Atorvastatin Calcium 40 MG Tablet 1 tablet Orally Once a day Taking Metoprolol Tartrate 25 MG Tablet 1 tablet with food Orally Twice a day Taking amLODIPine Besylate 10 MG Tablet 1 tablet Orally Once a day Taking Cholecalciferol , Notes to Pharmacist: 1000 units. Take 1 cap po dailyNot-TakingMultaq 400 MG Tablet 1 tablet with meals Orally Twice a day Losartan Potassium 25 MG Tablet 2 tablet Orally Once a day Warfarin Sodium 2.5 MG Tablet 1 tablet Orally Once a day Diclofenac Sodium 1 % Gel 1gm to the left foot Externally twice daily as needed Ciclopirox 0.77 % Gel 1 application Externally Once a day Famotidine 20 MG Tablet 1 tablet at [...] List reviewed and reconciled with the patientNot-Taking Multaq 400 MG Tablet 1 tablet with meals Orally Twice a day Not-Taking Losartan Potassium 25 MG Tablet 2 tablet Orally Once a day Not-Taking Warfarin Sodium 2.5 MG Tablet 1 tablet Orally Once a day Not-Taking Diclofenac Sodium 1 % Gel 1gm to the left foot Externally twice daily as needed Not-Taking Ciclopirox 0.77 % Gel 1 application Externally Once a day Not-Taking Famotidine 20 MG Tablet 1 tablet at [...] Allergies:??LisinoprilHydroc hlorothiazideCodeine Phosphateno[Allergies Verified] Objective: * Vitals:??Wt: 160.3 lbs, Ht: 61in, BMI: 30.29 Index, HR: 59 /min, Temp: 96.8 F, RR: 16 /min, Ht-cm: 154.94, Wt-k.71 kg. * Examination: ?General Examination: ?VASCULAR: Dorsalis [...] intact, protective sensation intact 10/10 with 5.07 [place] Tyler bilaterally, vibratory sensation with tuning fork intact to the tibial tuberosity. ?ORTHOPEDIC: Good muscle strength 4+/5 of all flexors and extensors. Dorsi flexion of ankle ,10 degrees, plantar flexion WNL. No muscle atrophy. Hallux valgus bilaterally, no pain on palpation or on ROM. Pes planus. Edema of left 1st metatarsophalangeal joint. No pain on palpation or ROM. ?DERMATOLOGICAL:n Healing blister distal medial tip of the right 2nd toe, no signs of infection. Diffuse hyperkeratotic lesion medial hallux left foot. Normal skin temperature, normal skin turgor. Incurvated thickened 3 mm right and left hallux toenails and 3rd toenails of the medial and lateral borders with edema and tenderness; with subungual debris and yellowish/orange discoloration with tenderness on palpation with 97% proximal clearance. ?SHOES:sneakers with compression stockings. 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 Plan: * Treatment: 2.??Onychomycosis?? Start Ciclopirox Gel, 0.77 %, 1 application, Externally, Once a day, 90 days, 60, Refills 1.? Clinical Notes: I reviewed with the patient various treatment [...] aseptically debrided all ten toenails with a cutter woodwind reeds and curette; pt tolerated well. ? 3.??Other specified peripher al vascular diseases?? Clinical Notes: She has increased leg swelling on examination today. I will defer to her PCP care team as they started a work up for this issue. She can wear compression stockings as needed for any lower extremity edema. Avoid high salt intake and elevate the feet periodically throughout the day.? 4.??Blister of second toe?? Notes: The right 2nd toe blister is healing without incident. No further treatment required at this time. ? * Procedure Codes:??96377 DEBR MATTIE NAIL, 6 OR MORE * Follow Up:??3 Months * Billing Information: * Visit Code:?? * Procedure Codes:?? 43757 DEBRIDE NAIL, 6 OR MORE. * Sign off status: Completed true * Provider:??Gavi Howard DPM Date: ??08/05/2024 History and Physical Notes * HPI (History of Present Illness) Category Sub-Category Detail Notes Category Not es Constitutional This 84 y/o f eileen returns to my office as a follow-up to toenail fungus. She has a new issue of a blister of the right 2nd toe. She states the area is not painful. She has no redness or swelling of the toe. She states the fungus on the left big toenail is pretty much resolved. She also has a small callus on the side of the big toe on the left side, but it is not painful. She complains of thick long painful toenails of both feet. She also notes occasional pain in the left big toe for the last 2 weeks. She states it is not every day. She states it is an aching pain. She denies any injury or trauma. She has no other foot complaints this visit. Her last visit with her PCP care team was 3 months ago. Allergies and medical history reviewed. [...] intact, protective sensation intact 10/10 with 5.07 [place] Tyler bilaterally, vibratory sensation with tuning fork intact to the tibial tuberosity. ORTHOPEDIC: Good muscle strength 4+/5 of all flexors and extensors. Dorsi flexion of ankle ,10 degrees, plantar flexion WNL. No muscle atrophy. Hallux valgus bilaterally, no pain on palpation or on ROM. Pes planus. Edema of left 1st metatarsophalangeal joint. No pain on palpation or ROM. DERMATOLOGICAL:n Healing blister distal medial tip of the right 2nd toe, no signs of infection. Diffuse hyperkeratotic lesion medial hallux left foot. Normal skin temperature, normal skin turgor. Incurvated thickened 3 mm right and left hallux toenails and 3rd toenails of the medial and lateral borders with edema and tenderness; with subungual debris and yellowish/orange discoloration with tenderness on palpation with 97% proximal clearance. SHOES:sneakers with compression stockings
--- OUTSIDE RECORDS SUMMARY | 2024-09-13 17:00 | XMS_ITS ---
Author Organization [facility] Address [address] [facility] [address] [place] [address] Care Team Providers Care Solar Energy Systems Designer Name Role Phone Silvia Reynoso Primary Care Provider GAVI Fernández Unavailable [phone] ALLERGIES Allergen (clinical drug ingredient) Drug/Non Drug [...] 1 application Externally Twice a day Not-Taking Diclofenac Sodium 1 % 1gm to the left foot Externally twice daily as needed for 30 days 05/04/2024 Active Ciclopirox 0.77% cream. Apply to the effected nail once daily untill resolved Not-Taking Loratadine 10 MG 1 tablet Orally Once a day to effected area 2 times daily Not-Taking Ciclopirox 0.77 % 1 application Externally Once a day for 90 days Active Hydrocortisone 2.5 % 1 application Externally Once a day prn Not-Taking Famotidine 20 MG 1 tablet at bedtime as needed Orally bid Not-Taking Warfarin Sodium 2.5 MG 1 tablet Orally Once a day Active Cholecalciferol 1000 units. Take 1 cap po daily Active amLODIPine Besylate 10 MG 1 tablet Orally Once a day Active Atorvastatin Calcium 40 MG 1 tablet Orally Once a day Active Losartan Potassium 25 MG 2 tablet Orally Once a day Active Furosemide 20 MG 1 tablet Orally Once a day PRN Active Multaq 400 MG 1 tablet with meals Orally Twice a day Active Metoprolol Tartrate 25 MG 1 tablet with food Orally Twice a day Active PROBLEMS Problem Type ICD Code Onset Dates Problem Status W/U Status Risk SNOMED Code Notes Problem 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) Active confirmed [id number] VITAL SIGNS Weight 167.4 lbs 05/04/2024 Height 61in in 05/04/2024 BMI 31.63 kg/m2 05/04/2024 Heart Rate 54 /min 05/04/2024 Temperature 96.6 degrees Fahrenheit 05/04/20 Respiratory Rate 16 /min 05/04/2024 Encounters Encounter Location Date Provider Diagnosis [facility] [address] [place] [address] 05/04/2024 GAVI HOWARD 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 05/04/2024 Pain in left toe(s) (ICD-10 - M79.675) 05/04/2024 Onychomycosis (ICD-10 - B35.1) I reviewed with [...] aseptically debrided all ten toenails with a band nailer and curette; pt tolerated well. 05/04/2024 Pain in right toe(s) (ICD-10 - M79.674) 05/04/2024 Other specified peripheral vascular diseases (ICD-10 - [...] Name Sig Start Date Stop Date Notes Diclofenac Sodium 1 % 1gm to the left fo ot Externally twice daily as needed for 30 days 05/04/2024 Ciclopirox 0.77 % 1 application Compensation Adjuster ally Once a day for 90 days Treatment Notes Assessment Notes Arthritis of left foot RX given for dicl ofenac gel to apply to the left big toe joint as needed for arthritic pain. Next Appt Details Follow Up: 3 Months, Reason: Provider Name:GAVI HOWARD, 11/07/2024 08:00:00 AM, [address] [facility], [facility] [address], [place], [address], Progress Notes * NOLBERTO MarchDOB:1940 (83 yo F)Acc No.[id number]:05/04/2024 Patient:??NOLBERTO Laurel Provider:??Gavi Howard DPM :1940?Age:83 Y?Sex:Fe male Date:05/04/2024 Address:[address] [place], [place] [id number] Pcp:Silvia Reynoso Subjective: * Chief Complaints: * ?3 month f/u * HPI: ?Constitutional:? This 83 y/o female returns to my office as a follow-up to toenail fungus. She states the fungus [...] surgery * Hospitalization/Major Diagno stic Procedure:??vaginal delivery 1959vaginal delivery 1962vaginal delivery 1966vaginal delivery 1972 * Family History:??Mother: dec eased, [...] 1000 units. Take 1 cap po dailyTaking Furosemide 20 MG Tablet 1 tablet Orally [...] Pharmacist: 1000 units. Take 1 cap po dailyNot-TakingCiclopirox 0.77 % Gel 1 application Externally Once [...] List reviewed and reconciled with the patientNot-Taking Ciclopirox 0.77 % Gel 1 application Externally [...] Allergies:??LisinoprilHydroc hlorothiazideCodeine Phosphateno[Allergies Verified] Objective: * Vitals:??Wt: 167.4 lbs, Ht: 61in, BMI: 31.63 Index, HR: 54 /min, Temp: 96.6 F, RR: 16 /min, Ht-cm: 154.94, Wt-k.93 kg. * Examination: ?General Examination: ?VASCULAR: Dorsalis [...] intact, protective sensation intact 10/10 with 5.07 [place] bilaterally, vibratory sensation with tuning fork intact to the tibial tuberosity. ?ORTHOPEDIC: Good muscle strength 4+/5 of all flexors and extensors. Dorsi flexion of ankle ,10 degrees, plantar flexion WNL. No muscle atrophy. Hallux valgus bilaterally, no pain on palpation or on ROM. Pes planus. Edema of left 1st metatarsophalangeal joint. No pain on palpation or ROM. ?DERMATOLOGICAL: Diffuse hyperkeratotic lesion medial hallux left [...] - M79.674??5.??Other specified peripheral vascular diseases - I73.89?? Plan: * Treatment: 2.??Onychomycosis?? Start Ciclopirox Gel, [...] aseptically debrided all ten toenails with a band nailer and curette; pt tolerated well. ? 3.??Other [...] feet periodically throughout the day.? * Procedure Codes:??93958 DEBR MATTIE NAIL, 6 OR MORE * Follow Up:??3 Months * Billing Information: * Visit Code:?? * Procedure Codes:?? 19242 DEBRIDE NAIL, 6 OR MORE. * Sign off status: Completed true * Provider:??Gavi Howard DPM Date: ??05/04/2024 History and Physical Notes * HPI (History of Present Illness) Category Sub-Category Detail Notes Category Not es Constitutional This 83 y/o f eileen returns to my office as a follow-up to toenail fungus. She states the fungus [...] intact, protective sensation intact 10/10 with 5.07 [place] bilaterally, vibratory sensation with tuning fork intact to the tibial tuberosity. ORTHOPEDIC: Good muscle strength 4+/5 of all flexors and extensors. Dorsi flexion of ankle ,10 degrees, plantar flexion WNL. No muscle atrophy. Hallux valgus bilaterally, no pain on palpation or on ROM. Pes planus. Edema of left 1st metatarsophalangeal joint. No pain on palpation or ROM. DERMATOLOGICAL: Diffuse hyperkeratotic lesion medial hallux left foot. Normal skin temperature, normal skin turgor. Incurvated thickened 3 mm right and left hallux toenails and 3rd toenails of the medial and lateral borders with edema and tenderness; with subungual debris and yellowish/orange discoloration with tenderness on palpation with 97% proximal clearance. SHOES:sneakers with compression stockings
--- OUTSIDE RECORDS SUMMARY | 2024-09-13 17:01 | XMS_ITS | Patient Health Record ---
Author Organization [facility] Address [address] [facility] [address] [place] [address] Care Team Providers Care Washer Operator Name Role Phone Silvia Reynoso Primary Care Provider ADOLPH Fernández Unavailable [phone] ALLERGIES Allergen (clinical drug ingredient) Drug/Non Drug Allergy documented on EMR Reaction Allergy Type Onset Date Status Codeine Phosphate Unknown Drug Allergy Active hydrochlorothiazide Hydrochlorothiazide Unknown Drug Aller gy Active lisinopril Lisinopril Unknown Drug Allergy Activ e REASON FOR REFERRAL No Information MEDICATIONS Medication SIG (Take, Route, Frequency, Duration) Notes Start Date End Date Status Losartan Potassium 25 MG 2 tablet Orally Once a day Not-Taking Atorvastatin Calcium 40 MG 1 tablet Orally Once a day Active Loratadine 10 MG 1 tablet Orally Once a day to effected area 2 times daily Not-Taking Multaq 400 MG 1 tablet with meals Orally Twice a day Not-Taking Ciclopirox 0.77% cream. Apply to the effected nail once daily untill resolved Not-Taking Furosemide 20 MG 1 tablet Orally Once a day PRN Active Hydrocortisone 2.5 % 1 application Externally Once a day prn Not-Taking Valsartan 320 MG 1 tablet Orally Once a day Active Famotidine 20 MG 1 tablet at bedtime as needed Orally bid Not-Taking Eliquis 5 MG as directed Orally BID Active Ciclopirox 0.77 % 1 application Externally Once a day for 90 days Active Cholecalciferol 1000 units. 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) Active confirmed [id number] Problem Primary hypertension (I10) Active confirmed Primary hypertension (96912901) VITAL SIGNS Heart Rate 59 /min 08/05/2024 Temperature 96.8 degrees Fahrenheit 08/05/2024 Respiratory Rate 16 /min 08/05/2024 Height 61in in 08/05/2024 Weight 160.3 lbs 08/05/2024 BMI 30.29 kg/m2 08/05/2024 Encounters Encounter Location Date Provider Diagnosis [facility] [address] 10/23/2023 ADOLPH COLINDRES [facility] [address] 01/29/2024 ADOLPH COLINDRES [facility] [address] 10/29/2023 ADOLPH COLINDRES Callus of foot L84 ; Pain in left toe(s) M79.675 ; Onychomycosis B35.1 ; Pain in right toe(s) M79.674 and Other specified peripheral vascular diseases I73.89 [facility] [address] 02/01/2024 ADOLPH COLINDRES Pain in left toe(s) M79.675 ; Onychomycosis B35.1 ; Pain in right toe(s) M79.674 and Other specified peripheral vascular diseases I73.89 [facility] [address] 05/04/2024 ADOLPH COLINDRES Arthritis of left foot M19.072 ; Pain in left toe(s) M79.675 ; Onychomycosis B35.1 ; Pain in right toe(s) M79.674 and Other specified peripheral vascular diseases I73.89 [facility] [address] 08/05/2024 ADOLPH COLINDRES Arthritis of left foot M19.072 ; Pain in left toe(s) M79.675 ; Onychomycosis B35.1 ; Pain in right toe(s) M79.674 ; Other specified peripheral vascular diseases I73.89 and Blister of second toe S90.426A [facility] [address] 10/09/2023 ADLOPH COLINDRES [facility] [address] 12/11/2023 ADOLPH COLINDRES ASSESSMENTS Encounter Date Diagnosis Assessment Notes Treatment Notes Treatment Clinical Notes Section Notes 10/29/2023 Callus of foot (ICD-10 - L84) We discussed she has some callus on the left big toe, improved compared to the last visit. I recommended she continues soaking her feet until the skin is soft and using a pumice stone to gently remove the skin. She can also apply a moisturizing cream to the area to help soften the skin. We discussed using Eucerin, Aveeno, Gold Barnes, or Ammonium lactate cream. 02/01/2024 Pain in left toe(s) (ICD-10 - M79.675) 05/04/2024 Arthritis of left foot (ICD-10 - M19.072) RX given for diclofenac gel to apply to the left big toe joint as needed for arthritic pain. 08/05/2024 Pain in left toe(s) (ICD-10 - M79.675) 08/05/2024 Arthritis of left foot (ICD-10 - M19.072) RX given for diclofenac gel to apply to the left big toe joint as needed for arthritic pain. 08/05/2024 Onychomycosis (ICD-10 - B35.1) I reviewed [...] aseptically debrided all ten toenails with a pearl cutter and curette; pt tolerated well. 05/04/2024 Pain in left toe(s) (ICD-10 - [...] aseptically debrided all ten toenails with a pearl cutter and curette; pt tolerated well. 10/29/2023 Pain in left toe(s) (ICD-10 - M79.675) 10/29/2023 Onychomycosis (ICD-10 - B35.1) I reviewed with [...] aseptically debrided all ten toenails with a pearl cutter and curette; pt tolerated well. 05/04/2024 Onychomycosis (ICD-10 - B35.1) I reviewed [...] aseptically debrided all ten toenails with a pearl cutter and curette; pt tolerated well. 02/01/2024 Pain in right toe(s) (ICD-10 - M79.674) 08/05/2024 Pain in right toe(s) (ICD-10 - M79.674) 05/04/2024 Pain in right toe(s) (ICD-10 - [...] elevate the feet periodically throughout the day. 02/01/2024 Other specified peripheral vascular diseases (ICD-10 - I73.89) She has increased leg swelling on examination today. I will defer to her PCP care team as they started a work up for this issue. She can wear compression stockings as needed for any lower extremity edema. Avoid high salt intake and elevate the feet periodically throughout the day. 10/29/2023 Pain in right toe(s) (ICD-10 - M79.674) 10/29/2023 Other specified peripheral vascular diseases (ICD-10 - I73.89) She has increased leg swelling on examination today. I will defer to her PCP care team as they started a work up for this issue. She can wear compression stockings as needed for any lower extremity edema. Avoid high salt intake and elevate the feet periodically throughout the day. 05/04/2024 Other specified peripheral vascular diseases (ICD-10 [...] required at this time. 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
== END 2024-09-07 11:35 | disposition home or self-care (01) ==
PROVIDERS: PCP Internal Medicine; Visit Provider Physician Assistant
DX: S05.01XA Injury of conjunctiva and corneal abrasion without foreign body, right eye, initial encounter (principal); S05.02XA Injury of conjunctiva and corneal abrasion without foreign body, left eye, initial encounter

== ENCOUNTER → 2024-09-07 09:16 | Outpatient (BNVA) | payer MEDICARE, SELFPAY | PROVIDERS: PCP Internal Medicine; Visit Provider Physician Assistant | DX: S05.02XA Injury of conjunctiva and corneal abrasion without foreign body, left eye, initial encounter (principal); S05.01XA Injury of conjunctiva and corneal abrasion without foreign body, right eye, initial encounter | CPT/HCPCS: 99212 ==

== ENCOUNTER 2024-09-13 13:02 | Outpatient (AMB) | payer MEDICARE, SELFPAY ==
--- NOTE | 2024-09-13 13:14 | MHC.OFFVIS ---
Vital Signs 09/13/24 13:16 Height 5 ft 5 in Weight 160 lb BMI 26.6 BP 138/80 Intake Visit Reasons: pessary check/DO NOT RS Data Base Administrator: Data Base Administrator Present (Rain) Accompanied by: Self / Same As Patient Allergies codeine [CODEINE] Allergy (Intermediate, Verified 09/13/24 13:17) HEADACHES hydrochlorothiazide [HYDROCHLOROTHIAZIDE] Allergy (Intermediate, Verified 09/13/24 13:17) NAUSEA & VOMITING, low K latex [LATEX] Allergy (Intermediate, Verified 09/13/24 13:17) RASH adhesive tape Allergy (Mild, Verified 09/13/24 13:17) Rash lisinopril [LISINOPRIL] Adverse Reaction (Mild, Verified 09/13/24 13:17) COUGH HPI Comments Details: The patient is presenting for pessary check no complaints no vaginal pain, discharge or pressure. The pessary did not slip out. [facility] Medical History Cellulitis Osteoporosis Uterine prolapse Rectocele Hyperlipidemia Sinus bradycardia Atrial fibrillation Paroxysmal atrial fibrillation HTN (hypertension) Surgical History History of cholecystectomy Hx of tubal ligation Family History Father CVD (cardiovascular disease) Mother CVD (cardiovascular disease) Diabetes Other Substance use disorder Social History Household Members: Children Housing: House Do you presently have visiting nurse or other home services: No Alcohol intake: unknown Patient Tobacco Use Status: Former Tobacco user Years Smoked: 12 +/- e-Cigarette/Vaping Use: Never Used Second Hand Smoke Exposure: No service: No Current occupational status: retired Current occupation: [employer] Current occupational exposures/hazards: No Cognitive needs: No Hearing needs: No Vision needs: Yes Review of Systems Const All systems reviewed & are unremarkable except as noted in HPI and below Physical Exam Vital Signs: Last Vital Signs BP 138/80 09/13/24 13:16 BMI result Body Mass Index 26.6 General: Yes no CVA tenderness External Female Exam: normal external appearance and normal appearance of the urethra Speculum Exam - Vagina: normal appearance of the vagina, no lesions, no masses and other (No abrasions ulcers or erythema) Speculum Exam - Cervix: normal appearance of the cervix, no lesions and no masses Back/Spine/Pelvis Back: no CVA tenderness Assessment & Plan Assessment & Plan (1) Pessary maintenance: Code(s): Z46.89 - Encounter for fitting and adjustment of other specified devices Category: Medical Plan: Pessary was taken out; pelvic exam revealed normal findings no evidence of erythema, pressure or any other abnormal finding. The pessary was replaced back in, it did not slip out after Valsalva in the supine, sitting, and standing position. Pt was instructed to call if vaginal pressure, pain or discharge occurs otherwise and to keep using Trimosan Gel 2-3 x/week. Follow-up in 3 months for another pessary check Coding Level of Care Code Est Pt Level 3 (16439) Diagnoses Pessary maintenance Z46.89
[2024-09-13 13:16] VITALS: BP 138/80; BMI 26.6
--- OUTSIDE RECORDS SUMMARY | 2024-09-14 21:19 | XMS_ITS ---
Author Organization [facility] Address [address] [facility] [address] [place] [address] Care Team Providers Care Tax Collection Coordinator Name Role Phone Silvia Reynoso Primary Care Provider GAVI Fernández Unavailable [phone] ALLERGIES Allergen (clinical drug ingredient) Drug/Non Drug [...] 08/05/2024 Encounters Encounter Location Date Provider Diagnosis [facility] [address] [facility] [address] [place] [address] 08/05/2024 GAVI HOWARD Arthritis of left foot [...] aseptically debrided all ten toenails with a hot wire glass tube cutter and curette; pt tolerated well. 08/05/2024 Pain [...] Date Notes Ciclopirox 0.77 % 1 application Carbon Blocks Press Operator ally Once a day for 90 days [...] Name:GAVI HOWARD, 11/07/2024 08:00:00 AM, [address] [address], [place], [address], Progress Notes * Laurel ARVIZUDOB:1940 (84 yo F)Acc No.[id number]:08/05/2024 Patient:??Laurel ARVIZU Provider:??Gavi Howard DPM :1940?Age:84 Y?Sex:Fe male Date:08/05/2024 Address:[address] [place], [place] [id number] Pcp:Silvia Reynoso Subjective: * Chief Complaints: * [...] intact, protective sensation intact 10/10 with 5.07 [place] Tyler bilaterally, vibratory sensation with tuning fork [...] aseptically debrided all ten toenails with a hot wire glass tube cutter and curette; pt tolerated well. ? 3.??Other [...] required at this time. ? * Procedure Codes:??45296 DEBR MATTIE NAIL, 6 OR MORE * Follow Up:??3 Months * Billing Information: * Visit Code:?? * Procedure Codes:?? 57602 DEBRIDE NAIL, 6 OR MORE. * Sign [...] intact, protective sensation intact 10/10 with 5.07 [place] Tyler bilaterally, vibratory sensation with tuning fork [...]
--- OUTSIDE RECORDS SUMMARY | 2024-09-14 21:20 | XMS_ITS | Patient Health Record ---
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) Active confirmed [id number] Problem Primary hypertension (I10) Active confirmed Primary hypertension (39424949) VITAL SIGNS Heart Rate 59 /min 08/05/2024 Temperature 96.8 degrees Fahrenheit 08/05/2024 Respiratory Rate 16 /min 08/05/2024 Height 61in in 08/05/2024 Weight 160.3 lbs 08/05/2024 BMI 30.29 kg/m2 08/05/2024 Encounters Encounter Location Date Provider Diagnosis [facility] [address] 10/23/2023 ADOLPH COLINDRES [facility] [address] 01/29/2024 ADOLPH COLINDRES [facility] [address] 10/29/2023 ADOLPH COLINDRES Callus of foot L84 ; Pain in left toe(s) M79.675 ; Onychomycosis B35.1 ; Pain in right toe(s) M79.674 and Other specified peripheral vascular diseases I73.89 [facility] [address] 02/01/2024 ADOLPH COLINDRES Pain in left toe(s) M79.675 ; Onychomycosis B35.1 ; Pain in right toe(s) M79.674 and Other specified peripheral vascular diseases I73.89 [facility] [address] 05/04/2024 ADOLPH COLINDRES Arthritis of left foot M19.072 ; Pain in left toe(s) M79.675 ; Onychomycosis B35.1 ; Pain in right toe(s) M79.674 and Other specified peripheral vascular diseases I73.89 [facility] [address] 08/05/2024 ADOLPH COLINDRES Arthritis of left foot M19.072 ; Pain in left toe(s) M79.675 ; Onychomycosis B35.1 ; Pain in right toe(s) M79.674 ; Other specified peripheral vascular diseases I73.89 and Blister of second toe S90.426A [facility] [address] 10/09/2023 ADOLPH COLINDRES [facility] [address] 12/11/2023 ADOLPH COLINDRES ASSESSMENTS Encounter Date [...] woodwind reeds and curette; pt tolerated well. 05/04/2024 Pain [...] woodwind reeds and curette; pt tolerated well. 10/29/2023 Pain [...] woodwind reeds and curette; pt tolerated well. 05/04/2024 Onychomycosis [...] woodwind reeds and curette; pt tolerated well. 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
--- OUTSIDE RECORDS SUMMARY | 2024-09-14 21:20 | XMS_ITS ---
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 05/04/2024 Pain [...] days 05/04/2024 Ciclopirox 0.77 % 1 application Graduate Civil Engineer ally Once a day for 90 days Treatment Notes Assessment Notes Arthritis of left foot RX given for dicl ofenac gel to apply to the left big toe joint as needed for arthritic pain. Next Appt Details Follow Up: 3 Months, Reason: Provider Name:GAVI HOWARD, 11/07/2024 08:00:00 AM, [address] [facility], [facility] [address], [place], [address], Progress Notes * NOLBERTO MarchDOB:1940 (83 yo F)Acc No.[id number]:05/04/2024 Patient:??NOLBERTO Laurel Provider:??Gavi Howard DPM :1940?Age:83 Y?Sex:Fe male Date:05/04/2024 Address:[address] [place], [place] [id number] Pcp:Silvia Reynoso Subjective: * Chief Complaints: * [...] intact, protective sensation intact 10/10 with 5.07 [place] Tyler bilaterally, vibratory sensation with tuning fork [...] aseptically debrided all ten toenails with a nailing machine operator automatic and curette; pt tolerated well. ? 3.??Other [...] feet periodically throughout the day.? * Procedure Codes:??43954 DEBR MATTIE NAIL, 6 OR MORE * Follow Up:??3 Months * Billing Information: * Visit Code:?? * Procedure Codes:?? 91548 DEBRIDE NAIL, 6 OR MORE. * Sign [...] intact, protective sensation intact 10/10 with 5.07 [place] Tyler bilaterally, vibratory sensation with tuning fork [...]
--- OUTSIDE RECORDS SUMMARY | 2024-09-14 21:20 | XMS_ITS ---
Author Organization [facility] Address [address] [facility] [address] [place] [address] Care Team Providers Care Conveyor Feeder Offbearer Name Role Phone Silvia Reynoso Primary Care Provider GAVI Fernández Unavailable [phone] ALLERGIES Allergen (clinical drug ingredient) Drug/Non Drug [...] 02/01/2024 Encounters Encounter Location Date Provider Diagnosis [facility] [address] [facility] [address] [place] [address] 02/01/2024 GAVI HOWARD Pain in left toe(s) [...] aseptically debrided all ten toenails with a zipper cutter and curette; pt tolerated well. 02/01/2024 [...] Date Notes Ciclopirox 0.77 % 1 application Coding Validator ally Once a day for 90 days Next Appt Details Follow Up: 3 Months, Reason: Provider Name:GAVI HOWARD, 11/07/2024 08:00:00 AM, [address] [facility], [facility] [address], [place], [place], , Progress Notes * Laurel ARVIZUDOB:1940 (83 yo F)Acc No.[id number]:02/01/2024 Patient:??Laurel ARVIZU Provider:??Gavi Howard DPM :1940?Age:83 Y?Sex:Fe male Date:02/01/2024 Address:[address] [place], [place] [phone] Pcp:Silvia Reynoso Subjective: * Chief Complaints: * [...] intact, protective sensation intact 10/10 with 5.07 [place] Tyler bilaterally, vibratory sensation with tuning fork [...] feet periodically throughout the day.? * Procedure Codes:??66250 DEBR MATTIE NAIL, 6 OR MORE * Follow Up:??3 Months * Billing Information: * Visit Code:?? * Procedure Codes:?? 15226 DEBRIDE NAIL, 6 OR MORE. * Sign [...] intact, protective sensation intact 10/10 with 5.07 [place] Tyler bilaterally, vibratory sensation with tuning fork [...]
== END 2024-09-13 13:33 | disposition home or self-care (01) ==
LOC: HO.HWS 13:02
PROVIDERS: PCP Internal Medicine; Visit Provider Obstetrics & Gynecology
DX: Z46.89 Encounter for fitting and adjustment of other specified devices (principal)
CPT/HCPCS: 99213

== ENCOUNTER → 2024-09-13 13:02 | Outpatient (BNVA) | payer MEDICARE, SELFPAY | PROVIDERS: PCP Internal Medicine; Visit Provider Obstetrics & Gynecology | DX: Z46.89 Encounter for fitting and adjustment of other specified devices (principal) | CPT/HCPCS: 99212 ==

== ENCOUNTER 2024-09-23 06:34 | Outpatient (REF) | payer MEDICARE, SELFPAY ==
[2024-09-23 10:51] LABS: MANUAL DIFF FLAG NO
[2024-09-23 11:02] LABS: Basophils Percent Auto 0.7 % (0-2); Eosinophils Absolute Auto 0.4 X10*3/uL (0.0-0.4); Eosinophils Percent Auto 6.4 % (0-4); Hematocrit 41.7 % (37.0-47.0); Hemoglobin 13.7 g/dl (12.0-16.0); Imm Gran Abs Auto 0.02 X10*3/uL (0.00-0.03); Imm Gran Pct Auto 0.3 % (0.0-0.4); Lymphocytes Absolute Auto 2.1 X10*3/uL (1.2-4.9); Lymphocytes Percent Auto 35.7 % (20-40); Mean Corpuscular HGB Conc 32.9 g/dl (31.0-35.0); Mean Corpuscular Hemoglobin 28.8 pg (27.0-33.0); Mean Corpuscular Volume 87.6 fL (80.0-98.0); Mean Platelet Volume 10.7 fL (9.4-12.3); Monocytes Absolute Auto 0.7 X10*3/uL (0.1-1.2); Monocytes Percent Auto 11.2 % (2-11); Neutrophils Absolute Auto 2.7 x10*3/uL (2.0-8.3); Neutrophils Percent Auto 45.7 % (45-73); Platelet Count 195 X10*3/uL (160-400); Red Blood Count 4.76 X10*6/uL (4.20-5.50); Red Cell Distribution Width 12.8 % (11.0-16.0); White Blood Count 5.8 X10*3/uL (4.8-10.8)
[2024-09-23 11:41] LABS: Alanine Aminotransferase 39 U/L (0-31); Albumin Level 3.7 g/dL (3.5-5.0); Alkaline Phosphatase 124 U/L (39-117); Anion Gap 10 (12-20); Aspartate Amino Transferase 33 U/L (5-31); Bilirubin Total 1.1 mg/dL (0.0-1.0); Blood Urea Nitrogen 15 mg/dL (9-16); Calcium 9.2 mg/dL (8.4-10.2); Carbon Dioxide 27 mmol/L (22-29); Chloride 108 mmol/L (96-108); Cholesterol 162 mg/dL (<200); Estimated Glomerular Filt Rate > 60; Glucose Fasting 104 mg/dL (60-99); HDL Cholesterol 40 mg/dL (>40); LDL Cholesterol Calculated 101 mg/dL (<100); Sodium 141 mmol/L (135-145); TSH reflex Free T4 2.54 uIU/mL (0.32-4.0); Total Protein 6.3 g/dL (6.5-8.0); Triglycerides 108 mg/dL (<150)
== END 2024-09-23 06:35 | disposition home or self-care (01) ==
LOC: HO.HMGCLDS 06:34
PROVIDERS: PCP Internal Medicine; Visit Provider Internal Medicine
DX: I48.92 Unspecified atrial flutter (principal); E78.5 Hyperlipidemia, unspecified; I10 Essential (primary) hypertension
CPT/HCPCS: 36415; 80053; 80061; 84443; 85025

== ENCOUNTER 2024-10-03 08:46 | Outpatient (AMB) | payer MEDICARE, SELFPAY ==
--- NOTE | 2024-10-03 08:48 | A.OFFPC_ITS ---
Vital Signs 10/03/24 08:50 Height 5 ft 5 in Weight 159 lb BMI 26.5 BP 126/64 Blood Pressure Location Lt brachial Position Sitting Pulse 60 Pulse Source Pulse Oximeter Pulse Oximetry (%) 96 Oxygen Delivery Method Room Air Intake Visit Reasons: Annual PE Intake Note: Pt is here today for PE. Allergies codeine [CODEINE] Allergy (Intermediate, Verified 10/03/24 08:51) HEADACHES hydrochlorothiazide [HYDROCHLOROTHIAZIDE] Allergy (Intermediate, Verified 10/03/24 08:51) NAUSEA & VOMITING, low K latex [LATEX] Allergy (Intermediate, Verified 10/03/24 08:51) RASH adhesive tape Allergy (Mild, Verified 10/03/24 08:51) Rash lisinopril [LISINOPRIL] Adverse Reaction (Mild, Verified 10/03/24 08:51) COUGH Medication List - Last Reconciled 10/03/24 by Silvia Reynoso MD amiodarone 200 mg PO DAILY amlodipine 5 mg PO BID apixaban (Eliquis) 5 mg PO BID atorvastatin 40 mg PO DAILY cholecalciferol (vitamin D3) 25 mcg PO BEDTIME furosemide 20 mg PO DAILY metoprolol tartrate 12.5 mg PO BID nystatin (Nystop) 1 appl topical BID PRN oxyquinoline-sod.lauryl sulfat 0.025-0.01 % (Trimo-Agustin Jelly) 1 ea vaginal .2- 3x/wk sertraline 25 mg PO DAILY triamcinolone acetonide 0.1% 1 appl topical BID PRN valsartan 320 mg PO DAILY Tobacco use date assessed: 10/03/24 Fall risk assessment: No Falls in past year Last assessed Fall Risk: 10/03/24 Dental Screening Dental Screen Date: 03/04/24 HPI Annual PE HPI Details Patient presents for physical PFSH Medical History (Updated 10/03/24 @ 09:27 by Silvia Reynoso MD) Osteoporosis Uterine prolapse Rectocele Hyperlipidemia Sinus bradycardia Atrial fibrillation HTN (hypertension) Surgical History (Updated 10/03/24 @ 09:27 by Silvia Reynoso MD) S/P ablation of atrial flutter History of cholecystectomy Hx of tubal ligation Family History Father CVD (cardiovascular disease) Mother CVD (cardiovascular disease) Diabetes Other Substance use disorder Social History Household Members: Children Housing: House Do you presently have visiting nurse or other home services: No Alcohol intake: unknown Patient Tobacco Use Status: Former Tobacco user Years Smoked: 12 +/- e-Cigarette/Vaping Use: Never Used Second Hand Smoke Exposure: No service: No Current occupational status: retired 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 Current occupational exposures/hazards: No Cognitive needs: No Hearing needs: No Vision needs: Yes Questionnaire Thrive Questionnaire Date Thrive assessed: 10/03/24 I am a: Patient What is your living situation today?: I have a steady place to live Within the past 12 months, did the food you bought not last and you didn't have the money to get more?: Never true Within the past 12 months, did you worry whether your food would run out before you got money to buy more?: Never true Do you have trouble paying for medicines?: No Do you have trouble getting transportation to medical appointments?: No Do you have trouble paying your heating and electricity bill?: No Do you have trouble taking care of your child, family member or friend?: No Do you have trouble with day-to-day activities such as bathing, preparing meals, shopping, managing finances, etc.?: No Are you currently unemployed and looking for a job?: No Are you interested in more education?: No Please select the resources that you would like help with: None Currently or been in a relationship where the following occur: No concerns reported THRIVE Score: 0 AUDIT C Alcohol Use Questionnaire (AUDIT-C) 1. How often do you have a drink containing alcohol?: Never 3. How often do you have six or more drinks on one occasion?: Never Total Score: 0 RENETTA-7 AMB Questionnaire RENETTA-7 Date RENETTA - 7 assessed: 04/18/24 Source: Developed by Drs. Lior Francois, Dee Arango, Jhoan Coronel and colleagues, with an educational simone from [employer]. Review of Systems Const All systems reviewed & are unremarkable except as noted in HPI and below Eyes Reports no additional complaints ENT Reports no additional complaints Card Reports no additional complaints Resp Reports no additional complaints GI Reports no additional complaints Reports no additional complaints Physical exam (Primary Care) Vital Signs: Last Vital Signs Pulse 60 10/03/24 08:50 BP 126/64 10/03/24 08:50 Pulse Ox 96 10/03/24 08:50 Oxygen Delivery Method Room Air 10/03/24 08:50 BMI result Body Mass Index 26.5 Tobacco/Smoking Status: Tobacco use Status Tobacco use date assessed 10/03/24 10/03/24 08:55 Patient Tobacco Use Status Former Tobacco user 10/03/24 08:55 Tobacco use type 05/25/24 10:57 e-Cigarette/Vaping Use Never Used 10/03/24 08:55 Thrive Assessment: Date of Thrive Assessment Date Thrive assessed 10/03/24 10/03/24 08:55 Currently or been in a relationship where the following occur: No concerns reported Const General: no acute distress HENMT Head: Yes normal to inspection Ears: hearing grossly normal bilaterally Mouth: Normal oral and palatal mucosa present Teeth and gingiva: dentition normal Eyes General: appearance normal, both eyes and all related structures Neck Neck: Yes no lymphadenopathy and Yes supple Resp Effort & Inspection: normal respiratory effort Auscultation: clear to auscultation bilaterally Cardio Rhythm: regular rhythm Heart sounds: S1 normal heart sound present and S2 normal heart sound present GI Inspection: Yes normal to inspection Palpation (GI): Soft to palpation Percussion: Yes normal to percussion Auscultation: normal bowel sounds Extrem Other: 1+ pitting edema bilaterally Coding Level of Care Code Est Pt Prev Care >65y(43951) Diagnoses Elevated liver enzymes R74.8 Hyperglycemia R73.9 Atrial flutter with rapid ventricular response I48.92 Annual physical exam Z00.00 Assessment & Plan Assessment & Plan (1) Elevated liver enzymes: Comment: Normal CT of the abdomen May 2024 Code(s): R74.8 - Abnormal levels of other serum enzymes Category: Medical Plan: Low simple carbohydrates diet discussed with the patient. Repeat blood work in 1 month (2) Hyperglycemia: Code(s): R73.9 - Hyperglycemia, unspecified Category: Medical Plan: ADA diet increase physical activity discussed with the patient check A1c in 1 month (3) Atrial flutter with rapid ventricular response: Comment: s/p ablation 05/2024 Dr. Graff, on amiodarone follow-up with Cardiology Code(s): I48.92 - Unspecified atrial flutter Category: Medical Plan: Continue current medications (4) Annual physical exam: Code(s): Z00.00 - Encounter for general adult medical examination without abnormal findings Category: Medical Plan: Well-balanced diet regular physical activity discussed with the patient return in 6 months with a fasting labs before Orders: Orders Comprehensive [place]. Panel Fast 1 Month R73.9 - Hyperglycemia, unspecified, R74.8 - Abnormal levels of other serum enzymes Hemoglobin A1c 1 Month R73.9 - Hyperglycemia, unspecified, R74.8 - Abnormal levels of other serum enzymes TSH reflex Free T4 6 Months E78.5 - Hyperlipidemia, unspecified, I10 - Essential (primary) hypertension, R73.9 - Hyperglycemia, unspecified, Z00.00 - Encounter for general adult medical examination without abnormal findings Hemoglobin A1c 6 Months E78.5 - Hyperlipidemia, unspecified, I10 - Essential (primary) hypertension, R73.9 - Hyperglycemia, unspecified, Z00.00 - Encounter for general adult medical examination without abnormal findings Comprehensive [place]. Panel Fast 6 Months E78.5 - Hyperlipidemia, unspecified, I10 - Essential (primary) hypertension, R73.9 - Hyperglycemia, unspecified, Z00.00 - Encounter for general adult medical examination without abnormal findings Complete Blood Count Auto Diff 6 Months E78.5 - Hyperlipidemia, unspecified, I10 - Essential (primary) hypertension, R73.9 - Hyperglycemia, unspecified, Z00.00 - Encounter for general adult medical examination without abnormal findings Lipid Panel 6 Months E78.5 - Hyperlipidemia, unspecified, I10 - Essential (primary) hypertension, R73.9 - Hyperglycemia, unspecified, Z00.00 - Encounter for general adult medical examination without abnormal findings
--- OUTSIDE RECORDS SUMMARY | 2024-10-03 08:49 | XMS_ITS ---
Author Organization [facility] Address [address] [facility] [address] [place] [address] Care Team Providers Care Assistant Basketball Coach Name Role Phone Silvia Reynoso Primary Care Provider GAVI Fernández Unavailable [phone] Allergies Allergen (clinical drug ingredient) Drug/Non Drug Allergy documented on EMR Reaction Allergy Type Onset Date Status Codeine Phosphate Unknown Drug Allergy Active hydrochlorothiazide Hydrochlorothiazide Unknown Drug Aller gy Active lisinopril Lisinopril Unknown Drug Allergy Activ e REASON FOR VISIT 3 month f/u Medications Medication SIG (Take, Route, Frequency, Duration) Notes [...] units. Take 1 cap po daily Active Vital Signs Weight 160.3 lbs 08/05/2024 Height 61in in 08/05/2024 BMI 30.29 kg/m2 08/05/2024 Heart Rate 59 /min 08/05/2024 Temperature 96.8 degrees Fahrenheit 08/05/20 24 Respiratory Rate 16 /min 08/05/2024 Encounters Encounter Location Date Provider Diagnosis [facility] [address] [facility] [address] [place] [address] 08/05/2024 GAVI HOWARD Arthritis of left foot M19.072 ; Pain in left toe(s) M79.675 ; Onychomycosis B35.1 ; Pain in right toe(s) M79.674 ; Other specified peripheral vascular diseases I73.89 and Blister of second toe S90.426A Assessments Encounter Date Diagnosis (ICD Code) Assessment Notes Treatment Notes Treatment Clinical Notes [...] aseptically debrided all ten toenails with a cross tie cutter and curette; pt tolerated well. 08/05/2024 [...] No further treatment required at this time. Plan Of Treatment Medication Medication Name Sig Start Date Stop Date Notes Ciclopirox 0.77 % 1 application Assistant Basketball Coach ally Once a day for 90 days [...] Name:GAVI HOWARD, 11/07/2024 08:00:00 AM, [address], [address], Progress Notes * Laurel ARVIZUDOB:1940 (84 yo F)Acc No.[id number]:08/05/2024 Patient:?Laurel ARVIZU Provider:?Gavi Howard DPM :1940???Age:84 Y???Sex:Female D ate:08/05/2024 Address:[address] [place], [place] [id number] Pcp:Silvia Reynoso Subjective: * Chief Complaints: * ???3 month f/u * HPI: ???Constitutional:? This 84 y/o female returns to my [...] review of systems is noncontributory. * Medical History:? * Surgical History:?endoscopy colonoscopy tubal ligation eye surgery * Hospitalization/Major Diagno stic Procedure:?vaginal delivery 1960vaginal delivery 1963vaginal delivery 1967vaginal delivery 1972sepsis 05/2024 * Family History:?Mother: dece ased, diabetes mellitus.? * Social History:?former smoker 0.5 pack/day quit in 1972 Alcohol: no. * Medications:?TakingEliquis 5 MG Tablet as directed Orally , [...] reviewed and reconciled with the patient * Allergies:?LisinoprilHydroch lorothiazideCodeine Phosphateno[Allergies Verified] Objective: * Vitals:?Wt: 160.3 lbs, Ht: 6 1in, BMI: 30.29 Index, HR: 59 /min, Temp: 96.8 F, RR: 16 /min, Ht-cm: 154.94, Wt-k.71 kg. * Examination: ???General Examination: ???VASCULAR: Dorsalis pedis pulses are 1/4 bilaterally and Posterior tibial pulses are 1/4 bilaterally. Capillary filling time within normal limits the digits. No pallor on elevation or rubor on dependency. No hair growth. Varicosities of the legs. Denies rest pain or claudication pain. Edema of the legs equal on both sides. ?NEUROLOGICAL: Sharp/dull sensation intact, protective sensation intact 10/10 with 5.07 Medon Tyler bilaterally, vibratory sensation with tuning fork [...] ?SHOES:sneakers with compression stockings. Assessment: * Assessment: 1.?Arthritis of left foot - M19.072 (Primary)?2.?Pain in left toe(s) - M79.675?3.?Onychomycosis - B35.1?4.?Pain in right toe(s) - M79.674?5.?Other specified peripheral vascular diseases - I73.89?6.?Blister of second toe - S90.426A? Plan: * Treatment: 2.?Onychomycosis? Start Ciclopirox Gel, 0.77 %, 1 application, Externally, Once a day, 90 days, 60, Refills 1.?? Clinical Notes: I reviewed with the patient [...] aseptically debrided all ten toenails with a cross tie cutter and curette; pt tolerated well. ?? 3.?Other specified periphera l vascular diseases? Clinical Notes: She has increased leg swelling on examination today. I will defer to her PCP care team as they started a work up for this issue. She can wear compression stockings as needed for any lower extremity edema. Avoid high salt intake and elevate the feet periodically throughout the day.?? 4.?Blister of second toe? Notes: The right 2nd toe blister is healing without incident. No further treatment required at this time. ?? * Procedure Codes:?82707 DEBRI DE NAIL, 6 OR MORE * Follow Up:?3 Months * Billing Information: * Visit Code:? * Procedure Codes:? 89676 DEBRIDE NAIL, 6 OR MORE. * Sign off status: Completed true * Provider:?Gavi Howard DPM Date:? 08/05/2024 Generated for Ulises zaldivar/Alla/Ponceitting on:?10/03/2024 08:49 AM EST History and Physical Notes * HPI (History [...] intact, protective sensation intact 10/10 with 5.07 Medon Tyler bilaterally, vibratory sensation with tuning fork [...]
[2024-10-03 08:50] VITALS: BP 126/64; PULSE 60; O2SAT 96; BMI 26.5
--- OUTSIDE RECORDS SUMMARY | 2024-10-03 08:50 | XMS_ITS ---
Author Organization [facility] Address [address] [facility] [address] [place] [address] Care Team Providers Care Packer Operator Automatic Name Role Phone Silvia Reynoso Primary Care Provider GAVI Fernández Unavailable [phone] Allergies Allergen (clinical drug ingredient) Drug/Non Drug [...] tablet Orally Once a day PRN Active Vital Signs Weight 169.2 lbs 02/01/2024 Height 61in in 02/01/2024 BMI 31.97 kg/m2 02/01/2024 Heart Rate 68 /min 02/01/2024 Temperature 96.1 degrees Fahrenheit 02/01/20 Respiratory Rate 16 /min 02/01/2024 Encounters Encounter Location Date Provider Diagnosis [facility] [address] [facility] [address] [place] [address] 02/01/2024 GAVIREMA HOWARD Pain in left toe(s) M79.675 ; Onychomycosis B35.1 ; Pain in right toe(s) M79.674 and Other specified peripheral vascular diseases I73.89 Assessments Encounter Date Diagnosis (ICD Code) Assessment [...] aseptically debrided all ten toenails with a retaining room cutter and curette; pt tolerated well. 02/01/2024 [...] elevate the feet periodically throughout the day. Plan Of Treatment Medication Medication Name Sig Start Date Stop Date Notes Ciclopirox 0.77 % 1 application Cloth Bleaching Range Operator Chief ally Once a day for 90 days Next Appt Details Follow Up: 3 Months, Reason: Provider Name:GAVIREMA DURAN HOWARD, 11/07/2024 08:00:00 AM, [address] [facility], [place], [address], Progress Notes * Laurel ARVIZUDOB:1940 (83 yo F)Acc No.[id number]:02/01/2024 Patient:?Laurel ARVIZU Provider:?Gavi Howard DPM :1940???Age:83 Y???Sex:Female D ate:02/01/2024 Address:[address] [place], [place] [id number] Pcp:Silvia Reynoso Subjective: * Chief Complaints: * ???3 month f/u * HPI: ???Constitutional:? This 83 y/o female returns to my [...] delivery 1960vaginal delivery 1963vaginal delivery 1967vaginal delivery 1971 * Family History:?Mother: dece ased, diabetes mellitus.? * Social History:?former smoker 0.5 pack/day quit in 1972 Alcohol: no. * Medications:?TakingFurosemid e 20 MG Tablet 1 tablet Orally Once [...] Allergies:?LisinoprilHydroch lorothiazideCodeine Phosphateno[Allergies Verified] Objective: * Vitals:?Wt: 169.2 lbs, Ht: 6 1in, BMI: 31.97 Index, HR: 68 /min, Temp: 96.1 F, RR: 16 /min, Ht-cm: 154.94, Wt-k.75 kg. * Examination: ???General Examination: ???VASCULAR: Dorsalis [...] intact, protective sensation intact 10/10 with 5.07 Markle Tyler bilaterally, vibratory sensation with tuning fork [...] ?SHOES:sneakers with compression stockings. Assessment: * Assessment: 1.?Onychomycosis - B35.1 (Pr imary)?2.?Pain in left toe(s) - M79.675?3.?Pain in right toe(s) - M79.674?4.?Other specified peripheral vascular diseases - I73.89? Plan: * Treatment: 2.?Other specified periphera l vascular diseases? Clinical Notes: She has increased leg swelling on examination today. I will defer to her PCP care team as they started a work up for this issue. She can wear compression stockings as needed for any lower extremity edema. Avoid high salt intake and elevate the feet periodically throughout the day.?? * Procedure Codes:?51384 DEBRI DE NAIL, 6 OR MORE * Follow Up:?3 Months * Billing Information: * Visit Code:? * Procedure Codes:? 53463 DEBRIDE NAIL, 6 OR MORE. * Sign off status: Completed true * Provider:?Gavi Howard DPM Date:? 02/01/2024 Generated for Ulises zaldivar/Alla/Ponceitting on:?10/03/2024 08:49 AM [...] intact, protective sensation intact 10/10 with 5.07 Markle Tyler bilaterally, vibratory sensation with tuning fork [...]
--- OUTSIDE RECORDS SUMMARY | 2024-10-03 08:50 | XMS_ITS ---
Author Organization [facility] Address [address] [facility] [address] [place] [address] Care Team Providers Care Audit Mgr Name Role Phone Silvia Reynoso Primary Care Provider GAVI Fernández Unavailable [phone] Allergies Allergen (clinical drug ingredient) Drug/Non Drug [...] with food Orally Twice a day Active Problems Problem Type SNOMED Code ICD Code Onset Dates Problem Status W/U Status Risk Notes Problem [id number] 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) Active confirmed Vital Signs Weight 167.4 lbs 05/04/2024 Height 61in in 05/04/2024 BMI 31.63 kg/m2 05/04/2024 Heart Rate 54 /min 05/04/2024 Temperature 96.6 degrees Fahrenheit 05/04/20 Respiratory Rate 16 /min 05/04/2024 Encounters Encounter Location Date Provider Diagnosis [facility] [address] [facility] [address] [place] [address] 05/04/2024 GAVIREMA HOWARD Arthritis of left foot M19.072 ; [...] aseptically debrided all ten toenails with a bedspread cutter and curette; pt tolerated well. 05/04/2024 [...] days 05/04/2024 Ciclopirox 0.77 % 1 application House Shorer ally Once a day for 90 days Treatment Notes Assessment Notes Arthritis of left foot RX given for dicl ofenac gel to apply to the left big toe joint as needed for arthritic pain. Next Appt Details Follow Up: 3 Months, Reason: Provider Name:GAVI HOWARD, 11/07/2024 08:00:00 AM, [address] [facility] [address], [place], [address], Progress Notes * NOLBERTO MarchDOB:1940 (83 yo F)Acc No.[id number]:05/04/2024 Patient:?NOLBERTO March Provider:?Gavi Howard DPM :1940???Age:83 Y???Sex:Female D ate:05/04/2024 Address:[address] [place] [phone] Pcp:Silvia Reynoso Subjective: * Chief Complaints: * [...] surgery * Hospitalization/Major Diagno stic Procedure:?vaginal delivery 1959vaginal delivery 1962vaginal delivery 1966vaginal delivery 1971 * Family History:?Mother: dece ased, [...] Allergies:?LisinoprilHydroch lorothiazideCodeine Phosphateno[Allergies Verified] Objective: * Vitals:?Wt: 167.4 lbs, Ht: 6 1in, BMI: 31.63 Index, HR: 54 /min, Temp: 96.6 F, RR: 16 /min, Ht-cm: 154.94, Wt-k.93 kg. * Examination: ???General Examination: ???VASCULAR: Dorsalis [...] intact, protective sensation intact 10/10 with 5.07 Lincoln Tyler bilaterally, vibratory sensation with tuning fork [...] - M79.674?5.?Other specified peripheral vascular diseases - I73.89? Plan: * Treatment: 2.?Onychomycosis? Start Ciclopirox Gel, [...] aseptically debrided all ten toenails with a bedspread cutter and curette; pt tolerated well. ?? [...] feet periodically throughout the day.?? * Procedure Codes:?47497 DEBRI DE NAIL, 6 OR MORE * Follow Up:?3 Months * Billing Information: * Visit Code:? * Procedure Codes:? 82421 DEBRIDE NAIL, 6 OR MORE. * Sign off status: Completed true * Provider:Sylvia Howard DPM Date:? 05/04/2024 Generated for Ulises zaldivar/Alla/Ponceitting on:?10/03/2024 08:49 AM [...] intact, protective sensation intact 10/10 with 5.07 Lincoln Tyler bilaterally, vibratory sensation with tuning fork [...]
--- OUTSIDE RECORDS SUMMARY | 2024-10-03 08:50 | XMS_ITS | Patient Health Record ---
Author Organization [facility] Address [address] [facility] [address] [place] [address] Care Team Providers Care Medical Records Supervisor Name Role Phone Silvia Reynoso Primary Care Provider ADOLPH Fernández Unavailable [phone] Allergies Allergen (clinical drug ingredient) Drug/Non Drug Allergy documented on EMR Reaction Allergy Type Onset Date Status Codeine Phosphate Unknown Drug Allergy Active hydrochlorothiazide Hydrochlorothiazide Unknown Drug Aller gy Active lisinopril Lisinopril Unknown Drug Allergy Activ e Reason For Referral No Information Medications Medication SIG (Take, Route, Frequency, Duration) [...] 1 application Externally Twice a day Not-Taking Problems Problem Type SNOMED Code ICD Code Onset Dates Problem Status W/U Status Risk Notes Problem [id number] Other specified peripheral vascular diseases (I73.89) Active confirmed Problem [id number] 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) Active confirmed Problem Primary hypertension ([id number]) Primary hypertension (I10) Active confirmed Vital Signs Heart Rate 59 /min 08/05/2024 Temperature 96.8 degrees Fahrenheit 08/05/2024 Respiratory Rate 16 /min 08/05/2024 Height 61in in 08/05/2024 Weight 160.3 lbs 08/05/2024 BMI 30.29 kg/m2 08/05/2024 Encounters Encounter Location Date Provider Diagnosis [facility] [address] 10/29/2023 ADOLPH COLINDRES Callus of foot L84 ; Pain in left toe(s) M79.675 ; Onychomycosis B35.1 ; Pain in right toe(s) M79.674 and Other specified peripheral vascular diseases I73.89 [facility] [address] 02/01/2024 ADOLPH COLINDRES Pain in left toe(s) M79.675 ; Onychomycosis B35.1 ; Pain in right toe(s) M79.674 and Other specified peripheral vascular diseases I73.89 [facility] [address] 05/04/2024 ADOLPH COLINDRES Arthritis of left foot M19.072 ; Pain in left toe(s) M79.675 ; Onychomycosis B35.1 ; Pain in right toe(s) M79.674 and Other specified peripheral vascular diseases I73.89 [facility] [address] 08/05/2024 ADOLPH COLINDRES Arthritis of left foot M19.072 ; Pain in left toe(s) M79.675 ; Onychomycosis B35.1 ; Pain in right toe(s) M79.674 ; Other specified peripheral vascular diseases I73.89 and Blister of second toe S90.426A [facility] [address] [address] 10/09/2023 ADOLPH COLINDRES [facility] [address] [address] 12/11/2023 ADOLPH COLINDRES Assessments Encounter Date Diagnosis (ICD Code) Assessment [...] aseptically debrided all ten toenails with a straight cutter machine and curette; pt tolerated well. 05/04/2024 Pain [...] aseptically debrided all ten toenails with a straight cutter machine and curette; pt tolerated well. 10/29/2023 Pain [...] aseptically debrided all ten toenails with a straight cutter machine and curette; pt tolerated well. 05/04/2024 Onychomycosis [...] aseptically debrided all ten toenails with a straight cutter machine and curette; pt tolerated well. 02/01/2024 Pain [...] required at this time. Plan Of Treatment Next Appt Details Provider Name:ADOLPH COLINDRES, 11/07/2024 08:00:00 AM, [address] [facility], [address], [address], Medical (General) History Medical History History ICD Code atrial flutter hypertension peripheral vascular disease hypercholeremia hypokalemia vitamin D deficiency diverticulosis rectocele uterine prolapse osteopenia hand eczema [facility] anticoagulation-on coumadin + COVID 11/2022 COVID vaccinated X 2 (Moderna) and 1 dixon ster (Moderna) Surgical History Surgery Date(Month/Year) endoscopy colonoscopy tubal ligation eye surgery Hospitalization History Reason Date(Month/Year) sepsis 05/2024 vaginal delivery 1971 vaginal delivery 1966 vaginal delivery 1962 vaginal delivery 1960
== END 2024-10-03 09:33 | disposition home or self-care (01) ==
PROVIDERS: PCP Internal Medicine; Visit Provider Internal Medicine
DX: R74.8 Abnormal levels of other serum enzymes (principal); R73.9 Hyperglycemia, unspecified; I48.92 Unspecified atrial flutter; Z00.00 Encounter for general adult medical examination without abnormal findings

== ENCOUNTER → 2024-10-03 08:46 | Outpatient (BNVA) | payer MEDICARE, SELFPAY | PROVIDERS: PCP Internal Medicine; Visit Provider Internal Medicine | DX: Z00.00 Encounter for general adult medical examination without abnormal findings (principal); R74.8 Abnormal levels of other serum enzymes; R73.9 Hyperglycemia, unspecified; I48.92 Unspecified atrial flutter | CPT/HCPCS: 96127; 99397 ==

== ENCOUNTER 2024-10-31 09:02 | Outpatient (REF) | payer MEDICARE, SELFPAY ==
[2024-10-31 10:23] LABS: Estimated Average Glucose 117 mg/dL; Hemoglobin A1C 136.8296 umol/L; Hemoglobin A1c % 5.7 % (<6.0); Total Hemoglobin (HGBA1C) 3556.3757 umol/L
[2024-10-31 10:45] LABS: Alanine Aminotransferase 28 U/L (0-31); Albumin Level 3.9 g/dL (3.5-5.0); Alkaline Phosphatase 116 U/L (39-117); Anion Gap 10 (12-20); Aspartate Amino Transferase 25 U/L (5-31); Bilirubin Total 0.9 mg/dL (0.0-1.0); Blood Urea Nitrogen 19 mg/dL (9-16); Calcium 9.5 mg/dL (8.4-10.2); Carbon Dioxide 26 mmol/L (22-29); Chloride 108 mmol/L (96-108); Estimated Glomerular Filt Rate 60; Glucose Fasting 101 mg/dL (60-99); Sodium 140 mmol/L (135-145); Total Protein 6.8 g/dL (6.5-8.0)
--- OUTSIDE RECORDS SUMMARY | 2024-10-31 13:23 | XMS_ITS | Patient Health Record ---
Author Organization [facility] Address [address] [facility] [address] [place] [address] Care Team Providers Care Wooden Boat Builder Name Role Phone Silvia Reynoso Primary Care Provider ADOLPH Fernández Unavailable [phone] Allergies Allergen (clinical drug ingredient) Drug/Non Drug [...] Problem Status W/U Status Risk Notes Problem [id number] Other specified peripheral vascular diseases (I73.89) Active confirmed Problem [id number] 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) Active confirmed Problem Primary hypertension (92876143) Primary hypertension (I10) Active confirmed Vital Signs Heart Rate 59 /min 08/05/2024 Temperature 96.8 degrees Fahrenheit 08/05/2024 Respiratory Rate 16 /min 08/05/2024 Height 61in in 08/05/2024 Weight 160.3 lbs 08/05/2024 BMI 30.29 kg/m2 08/05/2024 Encounters Encounter Location Date Provider Diagnosis [facility] [address] 02/01/2024 ADOLPH COLINDRES Pain in left toe(s) M79.675 ; Onychomycosis B35.1 ; Pain in right toe(s) M79.674 and Other specified peripheral vascular diseases I73.89 [facility] [address] 05/04/2024 ADOLPH COLINDRES Arthritis of left foot M19.072 ; Pain in left toe(s) M79.675 ; Onychomycosis B35.1 ; Pain in right toe(s) M79.674 and Other specified peripheral vascular diseases I73.89 [facility] [address] 08/05/2024 ADOLPH COLINDRES Arthritis of left foot M19.072 ; Pain in left toe(s) M79.675 ; Onychomycosis B35.1 ; Pain in right toe(s) M79.674 ; Other specified peripheral vascular diseases I73.89 and Blister of second toe S90.426A [facility] [address] 12/11/2023 ADOLPH COLINDRES Assessments Encounter Date Diagnosis [...] aseptically debrided all ten toenails with a shingle bolt cutter and curette; pt tolerated well. 05/04/2024 [...] aseptically debrided all ten toenails with a shingle bolt cutter and curette; pt tolerated well. 05/04/2024 [...] aseptically debrided all ten toenails with a shingle bolt cutter and curette; pt tolerated well. 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
--- OUTSIDE RECORDS SUMMARY | 2024-10-31 13:23 | XMS_ITS ---
Author Organization [facility] Address [address] [facility] [address] [place] [address] Care Team Providers Care Cord Splicer Name Role Phone Silvia Reynoso Primary Care Provider GAVI Fernández Unavailable [phone] Allergies Allergen (clinical drug ingredient) Drug/Non Drug [...] 08/05/2024 Encounters Encounter Location Date Provider Diagnosis [facility] [address] [facility] [address] [place] [address] 08/05/2024 GAVI HOWARD Arthritis of left foot [...] aseptically debrided all ten toenails with a elastic cutter and curette; pt tolerated well. 08/05/2024 [...] Date Notes Ciclopirox 0.77 % 1 application Machine Operator Replanter ally Once a day for 90 days [...] Name:GAVI HOWARD, 11/07/2024 08:00:00 AM, [address], [address], Progress Notes * Laurel ARVIZUDOB:1940 (84 yo F)Acc No.[id number]:08/05/2024 Patient:?Laurel ARVIZU Provider:?Gavi Howard DPM :1940???Age:84 Y???Sex:Female D ate:08/05/2024 Address:[address] [place], [place] [phone] Pcp:Silvia Reynoso Subjective: * Chief Complaints: * [...] intact, protective sensation intact 10/10 with 5.07 [place] Tyler bilaterally, vibratory sensation with tuning [...] aseptically debrided all ten toenails with a elastic cutter and curette; pt tolerated well. ?? [...] required at this time. ?? * Procedure Codes:?01840 DEBRI DE NAIL, 6 OR MORE * Follow Up:?3 Months * Billing Information: * Visit Code:? * Procedure Codes:? 34906 DEBRIDE NAIL, 6 OR MORE. * Sign off status: Completed true * Provider:?Gavi Howard DPM Date:? 08/05/2024 Generated for Ulises zaldivar/Alla/Ponceitting on:?10/31/2024 01:23 PM EST History and Physical Notes * HPI [...] intact, protective sensation intact 10/10 with 5.07 [place] Tyler bilaterally, vibratory sensation with tuning [...]
--- OUTSIDE RECORDS SUMMARY | 2024-10-31 13:24 | XMS_ITS | Clinical Summary ---
Author Organization [facility] Address [address] [place] [address] Care Team Providers Care Associate Professor Of Mathematics Name Role Phone Unavailable Primary Care Provider Unavailabl e Social History Tobacco Use Types Packs/Day Years Used Date Smoking Tobacco: Never Assessed Sex and Gender Information Value Date Recorded Sex Assigned at Not on file Gender Identity Not on file Sexual Orientation Not on file Plan of Treatment Health Maintenance Due Date Last Done Comments DTaP/Tdap/Td Vaccines (1 - Tdap) 1959 Pneumococcal Vaccines 50+ (1 of 1 - PCV) 1990 Zoster (Shingles) Vaccine (1 of 2) 1990 RSV Vaccine 60 years and old er and Patients (1 - 1-dose 75+ series) 2015 COVID-19 Vaccine (2023-2 5 season) 2024 Hepatitis B Vaccines Aged Out No long er eligible based on patient's age to complete this topic
--- OUTSIDE RECORDS SUMMARY | 2024-10-31 13:24 | XMS_ITS ---
Author Organization [facility] Address [address] [facility] [address] [place] [address] Care Team Providers Care Drafting Technician Name Role Phone Silvia Reynoso Primary Care Provider GAVI Fernández Unavailable [phone] Allergies Allergen (clinical drug ingredient) Drug/Non Drug [...] Problem Status W/U Status Risk Notes Problem [id number] 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) Active confirmed Vital Signs Weight 167.4 lbs 05/04/2024 Height 61in in 05/04/2024 BMI 31.63 kg/m2 05/04/2024 Heart Rate 54 /min 05/04/2024 Temperature 96.6 degrees Fahrenheit 05/04/20 Respiratory Rate 16 /min 05/04/2024 Encounters Encounter Location Date Provider Diagnosis [facility] [address] [facility] [address] [place] [address] 05/04/2024 GAVIREMA HOWARD Arthritis of left foot [...] aseptically debrided all ten toenails with a button cutter and curette; pt tolerated well. 05/04/2024 [...] days 05/04/2024 Ciclopirox 0.77 % 1 application Grain Commodity Manager ally Once a day for 90 days Treatment Notes Assessment Notes Arthritis of left foot RX given for dicl ofenac gel to apply to the left big toe joint as needed for arthritic pain. Next Appt Details Follow Up: 3 Months, Reason: Provider Name:GAVI HOWARD, 11/07/2024 08:00:00 AM, [address] [facility] [address], [place], [address], Progress Notes * NOLBERTO MarchDOB:1940 (83 yo F)Acc No.[id number]:05/04/2024 Patient:?NOLBERTO March Provider:?Gavi Howard DPM :1940???Age:83 Y???Sex:Female D ate:05/04/2024 Address:[address] [place] [phone] Pcp:Silvia Reynoso Subjective: * Chief Complaints: * [...] intact, protective sensation intact 10/10 with 5.07 [place] Tyler bilaterally, vibratory sensation with tuning fork [...] aseptically debrided all ten toenails with a button cutter and curette; pt tolerated well. ?? [...] feet periodically throughout the day.?? * Procedure Codes:?77946 DEBRI DE NAIL, 6 OR MORE * Follow Up:?3 Months * Billing Information: * Visit Code:? * Procedure Codes:? 32702 DEBRIDE NAIL, 6 OR MORE. * Sign off status: Completed true * Provider:Sylvia Howard DPM Date:? 05/04/2024 Generated for Ulises zaldivar/Alla/Ponceitting on:?10/31/2024 01:23 PM [...] intact, protective sensation intact 10/10 with 5.07 [place] Tyler bilaterally, vibratory sensation with tuning fork [...]
--- OUTSIDE RECORDS SUMMARY | 2024-10-31 13:24 | XMS_ITS | Encounter Summary ---
Author Organization [facility] Address [address] [place] [address] Care Team Providers Care Server Software Engineer Name Role Phone Unavailable Primary Care Provider Unavailabl e Encounter Details Date Type Department Care Team (Late st Contact Info) Description 07/30/2017 Scanned Document [address] [phone] Provider, Generic Social History Tobacco Use Types Packs/Day Years Used Date Smoking Tobacco: Never Assessed Sex and Gender Information Value Date Recorded Sex Assigned at Not on file Gender Identity Not on file Sexual Orientation Not on file documented as of this encounter Plan of Treatment Not on file documented as of this encounter Visit Diagnoses Not on filedocumented in this encounter
--- OUTSIDE RECORDS SUMMARY | 2024-10-31 13:24 | XMS_ITS ---
Author Organization [facility] Address [address] [facility] [address] [place] [address] Care Team Providers Care Sfdc Solution Architect Name Role Phone Silvia Reynoso Primary Care Provider GAVI Fernández Unavailable [phone] Allergies Allergen (clinical drug ingredient) Drug/Non Drug [...] 02/01/2024 Encounters Encounter Location Date Provider Diagnosis [facility] [address] [facility] [address] [place] [address] 02/01/2024 GAVIREMA HOWARD Pain in left toe(s) [...] aseptically debrided all ten toenails with a small piece cutter and curette; pt tolerated well. 02/01/2024 [...] Date Notes Ciclopirox 0.77 % 1 application Special Needs Librarian ally Once a day for 90 days Next Appt Details Follow Up: 3 Months, Reason: Provider Name:GAVIREMA DURAN HOWARD, 11/07/2024 08:00:00 AM, [address] [facility] [address], [place], [address], Progress Notes * Laurel ARVIZUDOB:1940 (83 yo F)Acc No.[id number]:02/01/2024 Patient:?Laurel ARVIZU Provider:?Gavi Howard DPM :1940???Age:83 Y???Sex:Female D ate:02/01/2024 Address:[address] [place], [place] [phone] Pcp:Silvia Reynoso Subjective: * Chief Complaints: * [...] intact, protective sensation intact 10/10 with 5.07 [place] Tyler bilaterally, vibratory sensation with tuning fork [...] feet periodically throughout the day.?? * Procedure Codes:?41124 DEBRI DE NAIL, 6 OR MORE * Follow Up:?3 Months * Billing Information: * Visit Code:? * Procedure Codes:? 80170 DEBRIDE NAIL, 6 OR MORE. * Sign off status: Completed true * Provider:?Gavi Howard DPM Date:? 02/01/2024 Generated for Ulises zaldivar/Alla/Ponceitting on:?10/31/2024 01:24 PM EST History and Physical Notes * [...] intact, protective sensation intact 10/10 with 5.07 [place] Tyler bilaterally, vibratory sensation with tuning fork [...]
== END 2024-10-31 09:03 | disposition home or self-care (01) ==
LOC: HO.HMGCLDS 09:02
PROVIDERS: PCP Internal Medicine; Visit Provider Internal Medicine
DX: R74.8 Abnormal levels of other serum enzymes (principal); R73.9 Hyperglycemia, unspecified
CPT/HCPCS: 36415; 80053; 83036

== ENCOUNTER 2024-11-12 10:02 | Emergency (ER) | payer MEDICARE, SELFPAY ==
--- NOTE | ~2024-11-12 | XR_ITS ---
CLINICAL HISTORY: cough, SOB, fevers 2 views chest Comparison: CR/SR - XR CHEST 2V - 05/07/24 09:09 EDT Findings: Cardiac and mediastinal contours are within normal limits. Mild interstitial prominence with scattered peribronchial thickening. No focal consolidation. No effusion. No pneumothorax. No acute osseous finding. Impression: Mild interstitial prominence with scattered peribronchial thickening. No focal consolidation. This document has been electronically signed by: Fortunato Romo MD on 11/12/2024 12:34:28
[2024-11-12 10:05] VITALS: BP 155/66; PULSE 59; RESP 18; TEMP 36.6; O2SAT 96; BMI 29.3
--- NOTE | 2024-11-12 10:13 | ED.GENADULT ---
HPI - General Adult General Chief complaint: Upper Respiratory Symptoms Stated complaint: flu symptoms Time Seen by Provider: 11/12/24 10:13 Source: patient, RN notes reviewed and old records reviewed Mode of arrival: ambulatory Limitations: no limitations History of Present Illness ED Provider: Kelly LOCO narrative: Patient is an 84-year-old female with history of aflutter/fib on Eliquis, HTN, HLD presenting to the ED with complaint of cough since Thursday, fever which began yesterday. States cough is starting to become productive. Denies chest pain, palpitations, pedal edema. Denies sore throat or ear pain. No known sick contacts. Took Tylenol at 5am. MD complaint: cough, fever Onset (ago): day(s) Related Data Home Medications ?Medication ?Instructions ?Recorded ?Confirmed cholecalciferol (vitamin D3) 25 25 mcg PO BEDTIME 09/17/20 10/03/24 mcg (1,000 unit) capsule triamcinolone acetonide 0.1 % 1 appl topical BID PRN Rash 05/07/24 10/03/24 topical cream metoprolol tartrate 25 mg tablet 12.5 mg PO BID 06/03/24 10/03/24 Previous Rx's ?Medication ?Instructions ?Recorded nystatin 100,000 unit/gram topical 1 appl topical BID PRN rash #30 12/27/23 powder (Nystop) grams furosemide 20 mg tablet 20 mg PO DAILY edema #90 tabs 05/30/24 amiodarone 200 mg tablet 200 mg PO DAILY #90 tabs 07/20/24 amlodipine 5 mg tablet 5 mg PO BID #60 tabs 07/22/24 sertraline 25 mg tablet 25 mg PO DAILY #30 tabs 08/02/24 atorvastatin 40 mg tablet 40 mg PO DAILY #100 tabs 08/22/24 valsartan 320 mg tablet 320 mg PO DAILY #90 tabs 09/04/24 oxyquinoline 0.025 %-sodium lauryl 1 ea vaginal .2-3x/wk pessary 09/14/24 sulfate 0.01 % vaginal gel #113.4 grams (Trimo-Agustin Jelly) apixaban 5 mg tablet (Eliquis) 5 mg PO BID #180 tabs 10/12/24 Allergies Allergy/AdvReac Type Severity Reaction Status Date / Time codeine [CODEINE] Allergy Intermediate HEADACHES Verified 11/12/24 10:10 hydrochlorothiazide Allergy Intermediate NAUSEA & Verified 11/12/24 10:10 [HYDROCHLOROTHIAZIDE] VOMITING, low K latex [LATEX] Allergy Intermediate RASH Verified 11/12/24 10:10 adhesive tape Allergy Mild Rash Verified 11/12/24 10:10 lisinopril [LISINOPRIL] AdvReac Mild COUGH Verified 11/12/24 10:10 Review of Systems Review of Systems: As per HPI Yes all other systems are reviewed and are negative Constitutional: Constitutional: Reports as per HPI [facility] Past Medical History Medical History (Updated 11/12/24 @ 12:14 by Samreen Mendoza NP) Osteoporosis Uterine prolapse Rectocele Hyperlipidemia Sinus bradycardia Atrial fibrillation HTN (hypertension) Surgical History (Updated 10/03/24 @ 09:27 by Silvia Reynoso MD) S/P ablation of atrial flutter History of cholecystectomy Hx of tubal ligation Family History Family History Father CVD (cardiovascular disease) Mother CVD (cardiovascular disease) Diabetes Other Substance use disorder Social History Social History Household Members: Children Housing: House Do you presently have visiting nurse or other home services: No Alcohol intake: unknown Patient Tobacco Use Status: Former Tobacco user Years Smoked: 12 +/- Smoked in Last 30 Days: No e-Cigarette/Vaping Use: Never Used Second Hand Smoke Exposure: No Use of substances other than those prescribed or required for medical reasons: No Advance Directives: No Advance Directives Information Provided: No service: No Current occupational status: retired 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 Blood pressure elevated. Heart rate normal. Respiratory rate normal. Temperature normal. Oxygen saturation normal. Const General: cooperative, healthy appearing and no acute distress Orientation/consciousness: oriented to person, oriented to place, oriented to time and patient oriented x3 Limitations: no limitations HENMT Head: Yes normocephalic and Yes atraumatic Ears: external ears normal General nose exam: Normal external nose present Face and sinus: Yes face symmetric Mouth: oropharynx normal and moist mucous membranes Throat: Yes uvula midline Eyes Pupils: Equal, round and reactive pupils present Neck Neck: Yes normal visual inspection and Yes supple Resp Effort & Inspection: normal respiratory effort and able to speak in complete sentences Auscultation: clear to auscultation bilaterally Cardio Rate: regular rate Rhythm: regular rhythm Heart sounds: S1 normal heart sound present and S2 normal heart sound present GI Palpation (GI): Soft to palpation and nontender Auscultation: normoactive bowel sounds General: Yes no CVA tenderness Back/Spine/Pelvis Back: no CVA tenderness Skin General skin exam: elasticity normal and turgor normal Neuro General: oriented to person, oriented to place, oriented to time, patient oriented x3, moves all extremities, no focal motor deficits and CN's II-XI intact bilaterally Cranial nerves: Yes Equal, round and reactive pupils present Cognition (Neuro): normal cognition Extrem General: Yes full ROM, Yes no pedal edema and Yes no calf tenderness Psych Mental Status: mental status grossly normal Affect: normal affect Thought process: Normal thought process present Medical Decision Making Medical Decision Making MDM Narrative: Patient is an 84-year-old female with history of aflutter/fib on quis, HTN, HLD presenting to the ED with complaint of cough since Thursday, fever which began yesterday. On exam patient is awake, A+Ox3, VS WNL, afebrile, normal neurological exam without focal deficits, physical exam findings as above. Given reported symptoms and physical exam findings, initial differential includes but is not limited to viral illness, Covid, flu, RSV, bronchitis, pneumonia. X-ray chest notable for no evidence of pneumonia. My interpretation is in agreement with the radiologist's interpretation. Viral serology positive for influenza A. Patient updated on results and all questions answered. Did discuss treatment with Tamiflu, through shared decision making patient declined at this time as her symptoms began on Thursday. Advised patient to use Tylenol for fever, ensure adequate fluid intake. Follow up with PCP as needed. Return precautions discussed. Patient verbalized understanding of and agreement with plan. Differential Diagnosis Differential Diagnoses: The differential diagnosis associated with the presentation includes As per [facility] Admission/Observation Consideration of admission/observation: Escalation of care including admission/observation considered Patient would have been admitted to the hospital had their work up had any findings where hospital admission was appropriate and their clinical presentation warranted hospital admission. Lab Data [facility] Lab Attestation statement: I reviewed the patient's lab results. As per [facility] Labs: Lab Results 11/12/24 Range/Units 10:37 Influenza Type A (PCR) POSITIVE A (Negative) Influenza Type B (PCR) NEGATIVE (Negative) RSV RNA Qual (PCR) NEGATIVE (Negative) SARS-CoV-2 RNA (RT-PCR) NEGATIVE (Negative) Independent Interpretation I performed an independent interpretation of an: Plain X-Ray Interpretation: No evidence of pneumonia on chest x-ray. Radiology Impression Discussion of test interpretation with radiology: I have reviewed the radiologist's reading. Radiologist Impression: 2 views chest Comparison: CR/SR - XR CHEST 2V - 05/07/24 09:09 EDT Findings: Cardiac and mediastinal contours are within normal limits. Mild interstitial prominence with scattered peribronchial thickening. No focal consolidation. No effusion. No pneumothorax. No acute osseous finding. Impression: Mild interstitial prominence with scattered peribronchial thickening. No focal consolidation. External Record Review External record reviewed: Inpatient record, Office record and Outpatient record Prescription Management I considered prescription management with: Antiviral Discharge Plan Discharge Clinical Impression: Influenza Patient Disposition: Home, Self-Care Instructions: Influenza (DC), Flu Shot (Vaccine) for Adults (ED) Additional Instructions: You were evaluated in the emergency department today for cough and fever. Your flu test was positive. You should isolate at home for another day and continue to wear a mask while symptomatic after that. Your symptoms should resolve over time with rest and fluids. You can take 650 mg Tylenol every 6 hours as needed for fever or pain. Please follow-up with your primary care provider for any ongoing symptoms. Return to the emergency department if you develop worsening pain, fever not controlled with Tylenol and ibuprofen, chest pain, dizziness or lightheadedness, or any other concerning symptoms. Prescriptions: No Action nystatin [Nystop] 100,000 unit/gram powder 1 appl topical BID PRN (Reason: rash) Qty: 30 1RF metoprolol tartrate 25 mg tablet 12.5 mg PO BID amiodarone 200 mg tablet 200 mg PO DAILY Qty: 90 3RF amlodipine 5 mg tablet 5 mg PO BID Qty: 60 3RF atorvastatin 40 mg tablet 40 mg PO DAILY Qty: 100 3RF valsartan 320 mg tablet 320 mg PO DAILY Qty: 90 1RF Trimo-Agustin Jelly 0.025-0.01 % gel 1 ea vaginal .2-3x/wk Qty: 113.4 0RF Rx Instructions: Half an applicator vaginally 2 to 3 times a week Eliquis 5 mg tablet 5 mg PO BID Qty: 180 3RF triamcinolone acetonide 0.1 % cream 1 appl topical BID PRN (Reason: Rash) cholecalciferol (vitamin D3) 25 mcg (1,000 unit) capsule 25 mcg PO BEDTIME furosemide 20 mg tablet 20 mg PO DAILY Qty: 90 1RF sertraline 25 mg tablet 25 mg PO DAILY Qty: 30 2RF Print Language: Georgian
[2024-11-12 11:19] LABS: Influenza A PCR POSITIVE (Negative); Influenza B PCR NEGATIVE (Negative); Resp Syncy Virus RNA Qual PCR NEGATIVE (Negative); SARS COV2 PCR INHOUSE NEGATIVE (Negative)
[2024-11-12 12:29] VITALS: BP 114/62; PULSE 83; RESP 20; TEMP 36.5; O2SAT 93
[2024-11-12 13:04] VITALS: BP 114/62; PULSE 83; RESP 20; TEMP 36.5; O2SAT 93
== END 2024-11-12 13:04 | disposition home or self-care (01) ==
PROVIDERS: Emergency Provider Emergency Medicine; PCP Internal Medicine
DX: J10.1 Influenza due to other identified influenza virus with other respiratory manifestations (principal); R05.9 Cough, unspecified; I10 Essential (primary) hypertension; E78.5 Hyperlipidemia, unspecified; I48.91 Unspecified atrial fibrillation; Z03.818 Encounter for observation for suspected exposure to other biological agents ruled out; Z87.891 Personal history of nicotine dependence; Z79.02 Long term (current) use of antithrombotics/antiplatelets; Z79.899 Other long term (current) drug therapy
CPT/HCPCS: 0241U; 71046; 99283; 99284

== ENCOUNTER → 2024-11-12 10:48 | Outpatient (BNV) | payer MEDICARE, SELFPAY | PROVIDERS: Emergency Provider Emergency Medicine; PCP Internal Medicine; Visit Provider Radiology Vascular & Interventional Radiology | DX: R05.9 Cough, unspecified (principal); R06.02 Shortness of breath; R50.9 Fever, unspecified | CPT/HCPCS: 71046 ==

== ENCOUNTER 2024-11-23 11:03 | Outpatient (AMB) | payer MEDICARE, SELFPAY ==
--- NOTE | 2024-11-23 11:40 | MHC.PC.OV ---
Vital Signs 11/23/24 11:52 Height 5 ft 2 in Weight 160 lb BMI 29.3 BP 136/70 Blood Pressure Location Lt brachial Position Sitting Respiration 20 Pulse 63 Pulse Source Pulse Oximeter Temp 98.3 F Temp Source Oral Pulse Oximetry (%) 95 Oxygen Delivery Method Room Air Intake Visit Reasons: constipated Intake Note: Pt is here today for a sick visit. Pt c/o abdominal discomfort, constipation, gassy. Pt also c/o cough. Allergies codeine [CODEINE] Allergy (Intermediate, Verified 11/12/24 10:10) HEADACHES hydrochlorothiazide [HYDROCHLOROTHIAZIDE] Allergy (Intermediate, Verified 11/12/24 10:10) NAUSEA & VOMITING, low K latex [LATEX] Allergy (Intermediate, Verified 11/12/24 10:10) RASH adhesive tape Allergy (Mild, Verified 11/12/24 10:10) Rash lisinopril [LISINOPRIL] Adverse Reaction (Mild, Verified 11/12/24 10:10) COUGH Medication List - Last Reconciled 11/23/24 by Silvia Reynoso MD amiodarone 200 mg PO DAILY amlodipine 5 mg PO BID apixaban (Eliquis) 5 mg PO BID atorvastatin 40 mg PO DAILY cholecalciferol (vitamin D3) 25 mcg PO BEDTIME furosemide 20 mg PO DAILY metoprolol tartrate 12.5 mg PO BID nystatin (Nystop) 1 appl topical BID PRN oxyquinoline-sod.lauryl sulfat 0.025-0.01 % (Trimo-Agustin Jelly) 1 ea vaginal .2-3x/wk sertraline 25 mg PO DAILY triamcinolone acetonide 0.1% 1 appl topical BID PRN valsartan 320 mg PO DAILY Tobacco use date assessed: 11/23/24 Fall risk assessment: No Falls in past year Last assessed Fall Risk: 11/23/24 Dental Screening Dental Screen Date: 11/23/24 Did you have a dental visit in the last 12 months?: Yes Did you have a dental problem in the last 6 months where you did not have access to dental care?: No Was dental information given to patient?: Patient has dentist HPI constipated HPI Details Pt c/o productive cough, SOB, fatigue since diagnosed with flu. Pt c/o constipation for 2 weeks, no abd pain, fever hematochezia melena nausea vomiting. Patient took stool softener for 2 days which improved her constipation. [facility] Medical History (Updated 11/23/24 @ 12:34 by Silvia Reynoso MD) Osteoporosis Uterine prolapse Rectocele Hyperlipidemia Sinus bradycardia Atrial fibrillation HTN (hypertension) Surgical History (Updated 10/03/24 @ 09:27 by Silvia Reynoso MD) S/P ablation of atrial flutter History of cholecystectomy Hx of tubal ligation Family History Father CVD (cardiovascular disease) Mother CVD (cardiovascular disease) Diabetes Other Substance use disorder Social History Household Members: Children Housing: House Do you presently have visiting nurse or other home services: No Alcohol intake: unknown Patient Tobacco Use Status: Former Tobacco user Years Smoked: 12 +/- e-Cigarette/Vaping Use: Never Used Second Hand Smoke Exposure: No service: No Current occupational status: retired Current occupation: [employer] Current occupational exposures/hazards: No Cognitive needs: No Hearing needs: No Vision needs: Yes Questionnaire PHQ-9 Over the last 2 weeks, how often have you been bothered by any of the following problems? 1. Little interest or pleasure in doing things: not at all 2. Feeling down, depressed, or hopeless: not at all 3. Trouble falling or staying asleep, or sleeping too much: several days 4. Feeling tired or having little energy: not at all 5. Poor appetite or overeating: several days 6. Feeling bad about yourself - or that you are a failure or have let yourself or your family down: not at all 7. Trouble concentrating on things, such as reading the newspaper or watching television: not at all 8. Moving or speaking so slowly that other people could have noticed. Or the opposite - being so fidgety or restless that you have been moving around a lot more than usual: not at all 9. Thoughts that you would be better off or of hurting yourself in some way: not at all Total score: 2 Depression Screening Interpretation: Negative Depression Screening Done: Yes 37093 - PHQ-9 Billing: Yes Source: Developed by Drs. Lior Francois, Jhoan Jarquin and colleagues, with an educational simone from [employer]. Thrive Questionnaire Date Thrive assessed: 11/23/24 I am a: Patient What is your living situation today?: I have a steady place to live Within the past 12 months, did the food you bought not last and you didn't have the money to get more?: Never true Within the past 12 months, did you worry whether your food would run out before you got money to buy more?: Never true Do you have trouble paying for medicines?: No Do you have trouble getting transportation to medical appointments?: No Do you have trouble paying your heating and electricity bill?: No Do you have trouble taking care of your child, family member or friend?: No Do you have trouble with day-to-day activities such as bathing, preparing meals, shopping, managing finances, etc.?: No Are you currently unemployed and looking for a job?: No Are you interested in more education?: No Please select the resources that you would like help with: None Currently or been in a relationship where the following occur: No concerns reported THRIVE Score: 0 AUDIT C Alcohol Use Questionnaire (AUDIT-C) 1. How often do you have a drink containing alcohol?: Never 3. How often do you have six or more drinks on one occasion?: Never Total Score: 0 RENETTA-7 AMB Questionnaire RENETTA-7 Date RENETTA - 7 assessed: 11/23/24 Feeling nervous, anxious, or on edge: 1 = Several days Not being able to stop or control worryin = Not at all Worrying too much about different things: 0 = Not at all Trouble relaxin = Not at all Being so restless that it is hard to sit still: 0 = Not at all Becoming easily annoyed or irritable: 0 = Not at all Feeling afraid as if something awful might happen: 0 = Not at all Total RENETTA-7 score (0-4 normal; 5-9 mild; 10-14 moderate; 15-21 severe): 1 Source: Developed by Drs. Lior Francois, Jhoan Jarquin and colleagues, with an educational simone from [employer]. RENETTA-7 Assessment Billing RENETTA-7 Assessment Tool: RENETTA-7 Assessment 49257 Review of Systems Const All systems reviewed & are unremarkable except as noted in HPI and below Eyes Reports no additional complaints ENT Reports no additional complaints Card Reports no additional complaints Resp Reports no additional complaints GI Reports no additional complaints Reports no additional complaints Physical exam (Primary Care) Vital Signs: Last Vital Signs Temp 98.3 F 11/23/24 11:52 Pulse 63 11/23/24 11:52 Resp 20 11/23/24 11:52 BP 136/70 11/23/24 11:52 Pulse Ox 95 11/23/24 11:52 Oxygen Delivery Method Room Air 11/23/24 11:52 BMI result Body Mass Index 29.3 Tobacco/Smoking Status: Tobacco use Status Tobacco use date assessed 11/23/24 11/23/24 11:58 Patient Tobacco Use Status Former Tobacco user 11/23/24 11:58 Tobacco use type 05/25/24 10:57 e-Cigarette/Vaping Use Never Used 11/23/24 11:41 PHQ-9: PHQ-9 Score PHQ-9: Total score 2 11/23/24 11:58 Depression Screening Interpretation: Negative Thrive Assessment: Date of Thrive Assessment Date Thrive assessed 11/23/24 11/23/24 11:58 Currently or been in a relationship where the following occur: No concerns reported Const General: no acute distress HENMT Head: Yes normal to inspection Ears: TM's normal bilaterally Mouth: Normal oral and palatal mucosa present Throat: Yes postnasal drainage Neck Neck: Yes no lymphadenopathy and Yes supple Resp Effort & Inspection: normal respiratory effort Auscultation: rhonchi Cardio Rhythm: regular rhythm Heart sounds: S1 normal heart sound present and S2 normal heart sound present GI Inspection: Yes normal to inspection Palpation (GI): Soft to palpation Percussion: Yes normal to percussion Auscultation: normal bowel sounds Coding Level of Care Code Est Pt Level 4 (48544) Diagnoses Sinusitis J32.9 HTN (hypertension) I10 Hypertension type: unspecified Atrial flutter with rapid ventricular response I48.92 Additional Codes RENETTA-7 Assessment Billing - RENETTA-7 Assessment Tool: RENETTA-7 Assessment 14727 ([id number]) PHQ-9 - 33987 - PHQ-9 Billing: Yes ([id number]) Assessment & Plan Assessment & Plan (1) Sinusitis: Code(s): J32.9 - Chronic sinusitis, unspecified Category: Medical Plan: Doxycycline is prescribed and supportive care discussed with the patient. For constipation she was advised to increase fiber and water intake and continue stool softener as needed (2) HTN (hypertension): Code(s): I10 - Essential (primary) hypertension Category: Medical Qualifiers: Hypertension type: unspecified Qualified Code(s): I10 - Essential (primary) hypertension Plan: Continue current medications (3) Atrial flutter with rapid ventricular response: Comment: s/p ablation 05/2024 Dr. Graff, on amiodarone follow-up with Cardiology Code(s): I48.92 - Unspecified atrial flutter Category: Medical Plan: Continue current medications follow-up with the Cardiology Medications: New doxycycline hyclate 100 mg PO BID 14 tabs 0RF
--- OUTSIDE RECORDS SUMMARY | 2024-11-23 11:51 | XMS_ITS ---
Author Organization [facility] Address [address] [facility] [address] [place] [address] Care Team Providers Care Eap Clinician Name Role Phone Silvia Reynoso Primary Care Provider GAVI Fernández Unavailable [phone] Allergies Allergen (clinical drug ingredient) Drug/Non Drug [...] 08/05/2024 Encounters Encounter Location Date Provider Diagnosis [facility] [address] [facility] [address] [place] [address] 08/05/2024 GAVI HOWARD Arthritis of left foot [...] aseptically debrided all ten toenails with a costume cutter and curette; pt tolerated well. 08/05/2024 [...] Date Notes Ciclopirox 0.77 % 1 application Prefitter ally Once a day for 90 days [...] Up: 3 Months, Reason: Provider Name:GAVI HOWARD, 02/06/2025 08:00:00 AM, [address], [address], Progress Notes * Laurel ARVIZUDOB:1940 (84 yo F)Acc No.[id number]:08/05/2024 Patient:?Laurel ARVIZU Provider:?Gavi Howard DPM :1940???Age:84 Y???Sex:Female D ate:08/05/2024 Address:[address] [place], [place] [id number] Pcp:Silvia Reynoso Subjective: * Chief Complaints: * [...] intact, protective sensation intact 10/10 with 5.07 Denver Tyler bilaterally, vibratory sensation with tuning fork [...] aseptically debrided all ten toenails with a costume cutter and curette; pt tolerated well. ?? [...] required at this time. ?? * Procedure Codes:?16504 DEBRI DE NAIL, 6 OR MORE * Follow Up:?3 Months * Billing Information: * Visit Code:? * Procedure Codes:? 72781 DEBRIDE NAIL, 6 OR MORE. * Sign off status: Completed true * Provider:?Gavi Howard DPM Date:? 08/05/2024 Generated for Ulises zaldivar/Alla/Ponceitting on:?11/23/2024 11:51 AM EST History and Physical Notes * [...] intact, protective sensation intact 10/10 with 5.07 Denver Tyler bilaterally, vibratory sensation with tuning fork [...]
--- OUTSIDE RECORDS SUMMARY | 2024-11-23 11:51 | XMS_ITS | Patient Health Record ---
Author Organization [facility] Address [address] [facility] [address] [place] [address] Care Team Providers Care Game Moderator Name Role Phone Silvia Reynoso Primary Care Provider ADOLPH Fernández Unavailable [phone] Allergies Allergen (clinical drug ingredient) Drug/Non Drug Allergy documented on EMR Reaction Allergy Type Onset Date Status Codeine Phosphate Unknown Drug Allergy Active hydrochlorothiazide Hydrochlorothiazide Unknown Drug Aller gy Active lisinopril Lisinopril Unknown Drug Allergy Activ e Reason For Referral No Information Medications Medication SIG (Take, Route, Frequency, Duration) Notes Start Date End Date Status Ciclopirox 0.77% cream. Apply to the effected nail once daily untill resolved Not-Taking Metoprolol Tartrate 25 MG 1 tablet with food Orally Twice a day Active Loratadine 10 MG 1 tablet Orally Once a day to effected area 2 times daily Not-Taking amLODIPine Besylate 5 MG 1 tablet Orally Twice a day Active Clotrimazole 1 % 1 application Externally Twice a day Not-Taking Diclofenac Sodium 1 % 1gm to the left foot Externally twice daily as needed for 30 days Active Cholecalciferol 1000 units. Take 1 cap po daily Active Ciclopirox 0.77 % 1 application Externally Once a day for 90 days Active Multaq 400 MG 1 tablet with meals Orally Twice a day Not-Taking Amiodarone HCl 200 MG 1 tablet Orally Once a day Active Losartan Potassium 25 MG 2 tablet Orally Once a day Not-Taking Eliquis 5 MG as directed Orally BID Active Warfarin Sodium 2.5 MG 1 tablet Orally Once a day Not-Taking Valsartan 160 MG 1 tablet Orally twice a day Active Famotidine 20 MG 1 tablet at bedtime as needed Orally bid Not-Taking Furosemide 20 MG 1 tablet Orally Once a day PRN Active Hydrocortisone 2.5 % 1 application Externally Once a day prn Not-Taking Atorvastatin Calcium 40 MG 1 tablet Orally Once a day Active Problems Problem Type SNOMED Code ICD Code Onset Dates Problem Status W/U Status Risk Notes Problem [id number] Other specified peripheral vascular diseases (I73.89) Active confirmed Problem [id number] 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) Active confirmed Problem Primary hypertension (23070638) Primary hypertension (I10) Active confirmed Vital Signs Heart Rate 64 /min 11/07/2024 Temperature 97.1 degrees Fahrenheit 11/07/2024 Respiratory Rate 16 /min 11/07/2024 Height 61in in 11/07/2024 Weight 164.5 lbs 11/07/2024 BMI 31.08 kg/m2 11/07/2024 Encounters Encounter Location Date Provider Diagnosis [facility] [address] 02/01/2024 ADOLPH COLINDRES Pain in left toe(s) M79.675 ; Onychomycosis B35.1 ; Pain in right toe(s) M79.674 and Other specified peripheral vascular diseases I73.89 [facility] [address] 05/04/2024 ADOLPH COLINDRES Arthritis of left foot M19.072 ; Pain in left toe(s) M79.675 ; Onychomycosis B35.1 ; Pain in right toe(s) M79.674 and Other specified peripheral vascular diseases I73.89 [facility] [address] 08/05/2024 ADOLPH COLINDRES Arthritis of left foot M19.072 ; Pain in left toe(s) M79.675 ; Onychomycosis B35.1 ; Pain in right toe(s) M79.674 ; Other specified peripheral vascular diseases I73.89 and Blister of second toe S90.426A [facility] [address] 11/07/2024 ADOLPH COLINDRES Arthritis of left foot M19.072 ; Pain in left toe(s) M79.675 ; Onychomycosis B35.1 ; Pain in right toe(s) M79.674 ; Other specified peripheral vascular diseases I73.89 and Blister of second toe S90.426A [facility] [address] [facility] [address] [place] [address] 12/11/2023 ADOLPH COLINDRES Assessments Encounter Date Diagnosis [...] toe joint as needed for arthritic pain. 11/07/2024 Arthritis of left foot (ICD-10 - M19.072) RX given for diclofenac gel to apply to the left big toe joint as needed for arthritic pain. 02/01/2024 Pain in left toe(s) (ICD-10 - [...] aseptically debrided all ten toenails with a cane cutter and curette; pt tolerated well. 11/07/2024 Pain in left toe(s) (ICD-10 - M79.675) [...] aseptically debrided all ten toenails with a cane cutter and curette; pt tolerated well. 05/04/2024 [...] aseptically debrided all ten toenails with a cane cutter and curette; pt tolerated well. 08/05/2024 Pain in right toe(s) (ICD-10 - M79.674) 11/07/2024 Onychomycosis (ICD-10 - B35.1) I reviewed with [...] aseptically debrided all ten toenails with a cane cutter and curette; pt tolerated well. 02/01/2024 Pain in right toe(s) (ICD-10 - M79.674) 11/07/2024 Pain in right toe(s) (ICD-10 - M79.674) [...] the feet periodically throughout the day. 05/04/2024 Pain in right toe(s) (ICD-10 - [...] No further treatment required at this time. 11/07/2024 Other specified peripheral vascular diseases (ICD-10 - I73.89) She has increased leg swelling on examination today. I will defer to her PCP care team as they started a work up for this issue. She can wear compression stockings as needed for any lower extremity edema. Avoid high salt intake and elevate the feet periodically throughout the day. 11/07/2024 Blister of second toe (ICD-10 - S90.426A) Plan Of Treatment Next Appt Details Provider Name:ADOLPHGISELLA COLINDRES, 02/06/2025 08:00:00 AM, [address] [facility] [address], [place], [address], Insurance Providers Payer Name Payer Address Payer Phone Subscriber Number Group Number Insured Name Patient Relationship to Insured Coverage Start Date Coverage End Date [employer] Medicare [id number] [address] [address] [place] [address] [phone] [id number] March Self - patient is the insured Medical (General) History Medical History History ICD Code atrial flutter hypertension peripheral vascular disease hypercholeremia hypokalemia vitamin D deficiency diverticulosis rectocele uterine prolapse osteopenia 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
[2024-11-23 11:52] VITALS: BP 136/70; PULSE 63; RESP 20; TEMP 36.8; O2SAT 95; BMI 29.3
--- OUTSIDE RECORDS SUMMARY | 2024-11-23 11:52 | XMS_ITS ---
Author Organization [facility] Address [address] [facility] [address] [place] [address] Care Team Providers Care Boom Crane Operator Name Role Phone Silvia Reynoso Primary Care Provider GAVI Fernández Unavailable [phone] Allergies Allergen (clinical drug ingredient) Drug/Non Drug [...] to effected area 2 times daily Not-Taking Clotrimazole 1 % 1 application Externally Twice a day Not-Taking Diclofenac Sodium 1 % 1gm to the left foot Externally twice daily as needed for 30 days Active Ciclopirox 0.77 % 1 application Externally Once a day for 90 days Active Multaq 400 MG 1 tablet with meals Orally Twice a day Not-Taking Losartan Potassium 25 MG 2 tablet Orally Once a day Not-Taking Warfarin Sodium 2.5 MG 1 tablet Orally Once a day Not-Taking Famotidine 20 MG 1 tablet at bedtime as needed Orally bid Not-Taking Hydrocortisone 2.5 % 1 application Externally Once a day prn Not-Taking Metoprolol Tartrate 25 MG 1 tablet with food Orally Twice a day Active amLODIPine Besylate 5 MG 1 tablet Orally Twice a day Active Cholecalciferol 1000 units. Take 1 cap po daily Active Furosemide 20 MG 1 tablet Orally Once a day PRN Active Atorvastatin Calcium 40 MG 1 tablet Orally Once a day Active Amiodarone HCl 200 MG 1 tablet Orally Once a day Active Eliquis 5 MG as directed Orally BID Active Valsartan 160 MG 1 tablet Orally twice a day Active Vital Signs Weight 164.5 lbs 11/07/2024 Height 61in in 11/07/2024 BMI 31.08 kg/m2 11/07/2024 Heart Rate 64 /min 11/07/2024 Temperature 97.1 degrees Fahrenheit 11/07/19 25 Respiratory Rate 16 /min 11/07/2024 Encounters Encounter Location Date Provider Diagnosis [facility] [address] [facility] [address] [place] [address] 11/07/2024 GAVI HOWARD Arthritis of left foot M19.072 ; Pain in left toe(s) M79.675 ; Onychomycosis B35.1 ; Pain in right toe(s) M79.674 ; Other specified peripheral vascular diseases I73.89 and Blister of second toe S90.426A Assessments Encounter Date Diagnosis (ICD Code) Assessment Notes Treatment Notes Treatment Clinical Notes Section Notes 11/07/2024 Arthritis of left foot (ICD-10 - M19.072) RX given for diclofenac gel to apply to the left big toe joint as needed for arthritic pain. 11/07/2024 Pain in left toe(s) (ICD-10 - M79.675) 11/07/2024 Onychomycosis (ICD-10 - B35.1) I reviewed [...] aseptically debrided all ten toenails with a double corner cutter and curette; pt tolerated well. 11/07/2024 Pain in right toe(s) (ICD-10 - M79.674) 11/07/2024 Other specified peripheral vascular diseases (ICD-10 [...] toe (ICD-10 - S90.426A) Plan Of Treatment Medication Medication Name Sig Start Date Stop Date Notes Diclofenac Sodium 1 % 1gm to the left fo ot Externally twice daily as needed for 30 days Ciclopirox 0.77 % 1 application Oceanographer Geological ally Once a day for 90 days Treatment Notes Assessment Notes Arthritis of left foot RX given for dicl ofenac gel to apply to the left big toe joint as needed for arthritic pain. Next Appt Details Follow Up: 3 Months, Reason: Provider Name:GAVI HOWARD, 02/06/2025 08:00:00 AM, [address], [address], Progress Notes * NOLBERTO MarchDOB:1940 (84 yo F)Acc No.[id number]:11/07/2024 Progress Note Patient:?MANESHANNEN Laurel Provider:?Gavi Howard DPM :1940???Age:84 Y???Sex:Female D ate:11/07/2024 Address:[address] [place], [place] [phone] Pcp:Silvia Reynoso Subjective: * Chief Complaints: * ???3 month f/u * HPI: ???Constitutional:?This 84 y/o female returns to my office [...] Hospitalization/Major Diagno stic Procedure:?vaginal delivery 1960vaginal delivery 1962vaginal delivery 1967vaginal delivery 1972sepsis 05/2024 * Family History:?Mother: dece ased, diabetes mellitus.? * Social History:?former smoker 0.5 pack/day quit in 1972 Alcohol: no. * Medications:?TakingAmiodaron e HCl 200 MG Tablet 1 tablet Orally Once a day Eliquis 5 MG Tablet as directed Orally , Notes to Pharmacist: BIDValsartan 160 MG Tablet 1 tablet Orally twice a day Furosemide 20 MG Tablet 1 tablet Orally Once a day , Notes to Pharmacist: PRNAtorvastatin Calcium 40 MG Tablet 1 tablet Orally Once a day Metoprolol Tartrate 25 MG Tablet 1 tablet with food Orally Twice a day amLODIPine Besylate 5 MG Tablet 1 tablet Orally Twice a day Cholecalciferol , Notes to Pharmacist: 1000 units. Take 1 cap po dailyTaking Amiodarone HCl 200 MG Tablet 1 tablet Orally Once a day Taking Eliquis 5 MG Tablet as directed Orally , Notes to Pharmacist: BIDTaking Valsartan 160 MG Tablet 1 tablet Orally twice a day Taking Furosemide 20 MG Tablet 1 tablet Orally Once a day , Notes to Pharmacist: PRNTaking Atorvastatin Calcium 40 MG Tablet 1 tablet Orally Once a day Taking Metoprolol Tartrate 25 MG Tablet 1 tablet with food Orally Twice a day Taking amLODIPine Besylate 5 MG Tablet 1 tablet Orally Twice a day Taking Cholecalciferol , Notes to Pharmacist: 1000 units. Take 1 cap po dailyNot-TakingDiclofenac Sodium 1 % Gel 1gm to the left foot Externally twice daily as needed Ciclopirox 0.77 % Gel 1 application Externally Once a day Multaq 400 MG Tablet 1 tablet with meals Orally Twice a day Losartan Potassium 25 MG Tablet 2 tablet Orally Once a day Warfarin Sodium 2.5 MG Tablet 1 tablet Orally Once a day Famotidine 20 MG Tablet [...] List reviewed and reconciled with the patientNot-Taking Diclofenac Sodium 1 % Gel 1gm to the left foot Externally twice daily as needed Not-Taking Ciclopirox 0.77 % Gel 1 application Externally Once a day Not-Taking Multaq 400 MG Tablet 1 tablet with meals Orally Twice a day Not- Taking Losartan Potassium 25 MG Tablet 2 tablet Orally Once a day Not-Taking Warfarin Sodium 2.5 MG Tablet 1 tablet Orally Once a day Not-Taking Famotidine 20 MG [...] Allergies:?LisinoprilHydroch lorothiazideCodeine Phosphateno[Allergies Verified] Objective: * Vitals:?Wt: 164.5 lbs, Ht: 6 1in, BMI: 31.08 Index, HR: 64 /min, Temp: 97.1 F, RR: 16 /min, Ht-cm: 154.94, Wt-k.62 kg. * Examination: ???General Examination: ???VASCULAR: Dorsalis [...] intact, protective sensation intact 10/10 with 5.07 [place] Tyler bilaterally, vibratory sensation with tuning fork [...] with 97% proximal clearance. SHOES:sneakers with compression stockings. Assessment: * Assessment: 1.?Arthritis of left foot - M19.072 (Primary)???2.?Pain in left toe(s) - M79.675???3.?Onychomycosis - B35.1???4.?Pain in right toe(s) - M79.674???5.?Other specified peripheral vascular diseases - I73.89???6.?Blister of second toe - S90.426A??? Plan: * Treatment: 2.?Onychomycosis? Start Ciclopirox Gel, [...] aseptically debrided all ten toenails with a double corner cutter and curette; pt tolerated well. ?? [...] feet periodically throughout the day.?? * Procedure Codes:?45273 DEBRI DE NAIL, 6 OR MORE, Modifiers: q9 * Follow Up:?3 Months * Billing Information: * Visit Code:? 46038 Office Visit, Est Pt., Level 2. Modifiers: 25 * Procedure Codes:? 08112 DEBRIDE NAIL, 6 OR MORE. Modifiers: q9 * Sign off status: Completed true * Provider:?Gavi Howard DPM Date:? 11/07/2024 Generated for Ulises zaldivar/Alla/Ponceitting on:?11/23/2024 11:51 AM [...] intact, protective sensation intact 10/10 with 5.07 [place] Tyler bilaterally, vibratory sensation with tuning fork [...]
--- OUTSIDE RECORDS SUMMARY | 2024-11-23 11:52 | XMS_ITS ---
Author Organization [facility] Address [address] 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 [address] [place] [address] 05/04/2024 GAVIREMA HOWARD Arthritis of left foot [...] aseptically debrided all ten toenails with a hand glass cutter and curette; pt tolerated well. 05/04/2024 [...] days 05/04/2024 Ciclopirox 0.77 % 1 application Support Representative ally Once a day for 90 days Treatment Notes Assessment Notes Arthritis of left foot RX given for dicl ofenac gel to apply to the left big toe joint as needed for arthritic pain. Next Appt Details Follow Up: 3 Months, Reason: Provider Name:GAVI HOWARD, 02/06/2025 08:00:00 AM, [address] [facility] [address], [place], [address], Progress Notes * NOLBERTO MarchDOB:1940 (83 yo F)Acc No.[id number]:05/04/2024 Patient:?NOLBERTO March Provider:?Gavi Howard DPM :1940???Age:83 Y???Sex:Female D ate:05/04/2024 Address:[address] [place] [phone] Pcp:Silvia Reynoso Subjective: * Chief Complaints: * [...] intact, protective sensation intact 10/10 with 5.07 [place] Tyler bilaterally, vibratory sensation with tuning fork [...] aseptically debrided all ten toenails with a hand glass cutter and curette; pt tolerated well. ?? [...] feet periodically throughout the day.?? * Procedure Codes:?86865 DEBRI DE NAIL, 6 OR MORE * Follow Up:?3 Months * Billing Information: * Visit Code:? * Procedure Codes:? 84066 DEBRIDE NAIL, 6 OR MORE. * Sign off status: Completed true * Provider:Sylvia Howard DPM Date:? 05/04/2024 Generated for Ulises zaldivar/Alla/Ponceitting on:?11/23/2024 11:51 AM [...] intact, protective sensation intact 10/10 with 5.07 [place] Tyler bilaterally, vibratory sensation with tuning fork [...]
--- OUTSIDE RECORDS SUMMARY | 2024-11-23 11:52 | XMS_ITS | Clinical Summary ---
Author Organization [facility] Address [address] [place] [address] Care Team Providers Care Driver License Examiner Name Role Phone Unavailable Primary Care Provider [...] - 1-dose 75+ series) 2015 COVID-19 Vaccine ( - 2023-2 5 season) 2024 Hepatitis B Vaccines Aged Out No long er eligible based on patient's age to complete this topic
--- OUTSIDE RECORDS SUMMARY | 2024-11-23 11:52 | XMS_ITS | Encounter Summary ---
Author Organization [facility] Address [address] [place] [address] Care Team Providers Care Flue Lining Dipper Name Role Phone Unavailable Primary Care Provider Unavailabl e Encounter Details Date Type Department Care Team (Late st Contact Info) Description 07/30/2017 Scanned Document [address] [phone] Provider, Generic Social History Tobacco Use Types [...]
== END 2024-11-23 12:36 | disposition home or self-care (01) ==
PROVIDERS: PCP Internal Medicine; Visit Provider Internal Medicine
DX: J32.9 Chronic sinusitis, unspecified (principal); I10 Essential (primary) hypertension; I48.92 Unspecified atrial flutter

== ENCOUNTER → 2024-11-23 11:03 | Outpatient (BNVA) | payer MEDICARE, SELFPAY | PROVIDERS: PCP Internal Medicine; Visit Provider Internal Medicine | DX: J32.9 Chronic sinusitis, unspecified (principal); I48.92 Unspecified atrial flutter; I10 Essential (primary) hypertension | CPT/HCPCS: 96127; 99212 ==

== ENCOUNTER 2024-12-22 08:45 | Outpatient (AMB) | payer MEDICARE, SELFPAY ==
--- NOTE | 2024-12-22 08:55 | MHC.OFFVIS ---
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: Granite Chip Terrazzo Finisher Present (Rain) Accompanied by: Self / Same As Patient Allergies codeine [CODEINE] Allergy (Intermediate, Verified 12/22/24 08:56) HEADACHES hydrochlorothiazide [HYDROCHLOROTHIAZIDE] Allergy (Intermediate, Verified 12/22/24 08:56) NAUSEA & VOMITING, low K latex [LATEX] Allergy (Intermediate, Verified 12/22/24 08:56) RASH adhesive tape Allergy (Mild, Verified 12/22/24 08:56) Rash lisinopril [LISINOPRIL] Adverse Reaction (Mild, Verified 12/22/24 08:56) COUGH Is last menstrual period known: No Post menopausal: Yes Patient : No HPI Comments Details: The patient is presenting for pessary check no complaints no vaginal pain, discharge or pressure. The pessary did not slip out. [facility] Medical History Osteoporosis Uterine prolapse Rectocele Hyperlipidemia Sinus bradycardia Atrial fibrillation HTN (hypertension) Surgical History S/P ablation of atrial flutter History of cholecystectomy Hx of tubal ligation Family History Father CVD (cardiovascular disease) Mother CVD (cardiovascular disease) Diabetes Other Substance use disorder Social History Household Members: Children Housing: House Do you presently have visiting nurse or other home services: No Alcohol intake: unknown Patient Tobacco Use Status: Former Tobacco user Years Smoked: 12 +/- e-Cigarette/Vaping Use: Never Used Second Hand Smoke Exposure: No Patient : No service: No Current occupational status: retired 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 Current occupational exposures/hazards: No Cognitive needs: No Hearing needs: No Vision needs: Yes Review of Systems Const All systems reviewed & are unremarkable except as noted in HPI and below Physical Exam General: Yes no CVA tenderness External Female Exam: normal external appearance and normal appearance of the urethra Speculum Exam - Vagina: normal appearance of the vagina, normal palpation, no lesions, no masses and other (Pessary taken out, especially revealed normal vaginal wall ) Speculum Exam - Cervix: normal appearance of the cervix, normal palpation, no lesions, no masses and nontender Bimanual exam- vagina & uterus: normal bimanual exam, normal palpation, uterine size normal, normal palpation, uterine shape normal, No Cervical tenderness present and non-tender Bimanual Exam- Adnexa, other: normal adnexae Back/Spine/Pelvis Back: no CVA tenderness Assessment & Plan Assessment & Plan (1) Pessary maintenance: Code(s): Z46.89 - Encounter for fitting and adjustment of other specified devices Category: Medical Plan: Pessary was taken out; pelvic exam revealed normal findings no evidence of erythema, pressure or any other abnormal finding. The pessary was replaced back in, it did not slip out after Valsalva in the supine, sitting, and standing position. Pt was instructed to call if vaginal pressure, pain or discharge occurs otherwise and to keep using Trimosan Gel 2-3 x/week. Follow-up in 3 months for another pessary check Coding Level of Care Code Est Pt Level 3 (20286) Diagnoses Pessary maintenance Z46.89
--- OUTSIDE RECORDS SUMMARY | 2024-12-22 09:07 | XMS_ITS | Encounter Summary ---
Author Organization [facility] Address [address] [place] [address] Care Team Providers Care Tool Clerk Name Role Phone Unavailable Primary Care Provider Unavailabl e Encounter Details Date Type Department Care Team (Late st Contact Info) Description 07/30/2017 Scanned Document [address] [phone] Provider, Generic Social History Tobacco Use Types [...]
--- OUTSIDE RECORDS SUMMARY | 2024-12-22 09:07 | XMS_ITS | Clinical Summary ---
Author Organization [facility] Address [address] [place] [address] Care Team Providers Care Panel Installer Name Role Phone Unavailable Primary Care Provider [...]
--- OUTSIDE RECORDS SUMMARY | 2024-12-22 09:07 | XMS_ITS ---
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 05/04/2024 [...] days 05/04/2024 Ciclopirox 0.77 % 1 application Mastic Man ally Once a day for 90 days Treatment Notes Assessment Notes Arthritis of left foot RX given for dicl ofenac gel to apply to the left big toe joint as needed for arthritic pain. Next Appt Details Follow Up: 3 Months, Reason: Provider Name:GAVI HOWARD, 02/06/2025 08:00:00 AM, [address] [facility] [address], [place], [address], Progress Notes * NOLBERTO MarchDOB:1940 (83 yo F)Acc No.[id number]:05/04/2024 Patient:?NOLBERTO March Provider:?Gavi Howard DPM :1940???Age:83 Y???Sex:Female D ate:05/04/2024 Address:[address] [place] [phone] Pcp:Silvia Reynoso Subjective: * Chief Complaints: * [...] intact, protective sensation intact 10/10 with 5.07 [place] Tyler bilaterally, vibratory sensation with tuning fork [...] aseptically debrided all ten toenails with a corner cutter and curette; pt tolerated well. [...] feet periodically throughout the day.?? * Procedure Codes:?18396 DEBRI DE NAIL, 6 OR MORE * Follow Up:?3 Months * Billing Information: * Visit Code:? * Procedure Codes:? 34630 DEBRIDE NAIL, 6 OR MORE. * Sign off status: Completed true * Provider:Sylvia Howard DPM Date:? 05/04/2024 Generated for Ulises zaldivar/Alla/Ponceitting on:?12/22/2024 09:06 AM EDT History and Physical Notes * HPI (History [...] intact, protective sensation intact 10/10 with 5.07 [place] Tyler bilaterally, vibratory sensation with tuning fork [...]
--- OUTSIDE RECORDS SUMMARY | 2024-12-22 09:07 | XMS_ITS ---
Author Organization [facility] Address [address] [facility] [address] [place] [address] Care Team Providers Care Greens Or Grounds Superintendent Name Role Phone Silvia Reynoso Primary Care Provider GAVI Fernández Unavailable [phone] Allergies Allergen (clinical drug ingredient) Drug/Non Drug [...] 1 cap po daily Active Vital Signs Temperature 96.8 degrees Fahrenheit 08/05/20 Heart Rate 59 /min 08/05/2024 Respiratory Rate 16 /min 08/05/2024 Height 61in in 08/05/2024 Weight 160.3 lbs 08/05/2024 BMI 30.29 kg/m2 08/05/2024 Encounters Encounter Location Date Provider Diagnosis [facility] [address] [facility] [address] [place] [address] 08/05/2024 GAVI HOWARD Arthritis of left foot [...] aseptically debrided all ten toenails with a nailer operator and curette; pt tolerated well. 08/05/2024 Pain [...] Date Notes Ciclopirox 0.77 % 1 application Plastics Supervisor ally Once a day for 90 days [...] Name:GAVI HOWARD, 02/06/2025 08:00:00 AM, [address], [address], Progress Notes * Laurel ARVIZUDOB:1940 (84 yo F)Acc No.[id number]:08/05/2024 Patient:?Laurel ARVIZU Provider:?Gavi Howard DPM :1940???Age:84 Y???Sex:Female D ate:08/05/2024 Address:[address] [place], [place] [phone] Pcp:Silvia Reynoso Subjective: * Chief Complaints: * [...] intact, protective sensation intact 10/10 with 5.07 [place] Tyler bilaterally, vibratory sensation with tuning fork [...] aseptically debrided all ten toenails with a nailer operator and curette; pt tolerated well. ?? 3.?Other [...] required at this time. ?? * Procedure Codes:?59247 DEBRI DE NAIL, 6 OR MORE * Follow Up:?3 Months * Billing Information: * Visit Code:? * Procedure Codes:? 17843 DEBRIDE NAIL, 6 OR MORE. * Sign off status: Completed true * Provider:?Gavi Howard DPM Date:? 08/05/2024 Generated for Ulises zaldivar/Alla/Ponceitting on:?12/22/2024 09:06 AM [...] intact, protective sensation intact 10/10 with 5.07 [place] Tyler bilaterally, vibratory sensation with tuning fork [...]
--- OUTSIDE RECORDS SUMMARY | 2024-12-22 09:07 | XMS_ITS | Patient Health Record ---
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) Active confirmed Problem Primary hypertension (49965229) Primary hypertension (I10) Active confirmed Vital Signs Heart Rate 64 /min 11/07/2024 Temperature 97.1 degrees Fahrenheit 11/07/2024 Respiratory Rate 16 /min 11/07/2024 Height 61in in 11/07/2024 Weight 164.5 lbs 11/07/2024 BMI 31.08 kg/m2 11/07/2024 Encounters Encounter Location Date Provider Diagnosis [facility] [address] 02/01/2024 ADOLPH COLINDRES Pain in left toe(s) M79.675 ; Onychomycosis B35.1 ; Pain in right toe(s) M79.674 and Other specified peripheral vascular diseases I73.89 [facility] [address] 05/04/2024 ADOLPH COLINDRES Arthritis of left foot M19.072 ; Pain in left toe(s) M79.675 ; Onychomycosis B35.1 ; Pain in right toe(s) M79.674 and Other specified peripheral vascular diseases I73.89 [facility] [address] 08/05/2024 ADOLPH COLINDRES Arthritis of left foot M19.072 ; Pain in left toe(s) M79.675 ; Onychomycosis B35.1 ; Pain in right toe(s) M79.674 ; Other specified peripheral vascular diseases I73.89 and Blister of second toe S90.426A [facility] [address] 11/07/2024 ADOLPH COLINDRES Arthritis of left [...] aseptically debrided all ten toenails with a embroidery cutter and curette; pt tolerated well. 05/04/2024 [...] aseptically debrided all ten toenails with a embroidery cutter and curette; pt tolerated well. 05/04/2024 [...] aseptically debrided all ten toenails with a embroidery cutter and curette; pt tolerated well. 02/01/2024 [...] aseptically debrided all ten toenails with a embroidery cutter and curette; pt tolerated well. 08/05/2024 [...] Treatment Next Appt Details Provider Name:ADOLPH COLINDRES, 02/06/2025 08:00:00 AM, [address] [facility] [address], [place], [address], Insurance Providers Payer Name Payer Address Payer Phone Subscriber Number Group Number Insured Name Patient Relationship to Insured Coverage Start Date Coverage End Date [employer] Medicare Adv-[id number] [address] [address] [place] [phone] [id number] March Self - patient is the insured Medical (General) History Medical History History ICD Code atrial flutter hypertension peripheral vascular disease hypercholeremia hypokalemia vitamin D deficiency diverticulosis rectocele uterine prolapse osteopenia hand eczema fci anticoagulation-on coumadin + COVID 11/2022 COVID vaccinated X 2 (Moderna) and 1 dixon ster (Moderna) Surgical History Surgery Date(Month/Year) endoscopy colonoscopy tubal ligation eye surgery Hospitalization History Reason Date(Month/Year) sepsis 05/2024 vaginal delivery 1971 vaginal delivery 1966 vaginal delivery 1962 vaginal delivery 1960
== END 2024-12-22 09:29 | disposition home or self-care (01) ==
LOC: HO.HWS 08:45
PROVIDERS: PCP Internal Medicine; Visit Provider Obstetrics & Gynecology
DX: Z46.89 Encounter for fitting and adjustment of other specified devices (principal)
CPT/HCPCS: 99213

== ENCOUNTER → 2024-12-22 08:45 | Outpatient (BNVA) | payer MEDICARE, SELFPAY | PROVIDERS: PCP Internal Medicine; Visit Provider Obstetrics & Gynecology | DX: Z46.6 Encounter for fitting and adjustment of urinary device (principal); Z96.0 Presence of urogenital implants | CPT/HCPCS: 57160; 99212 ==

== ENCOUNTER 2024-12-30 10:28 | Outpatient (AMB) | payer MEDICARE, SELFPAY ==
[2024-12-30 10:31] VITALS: BP 134/68; PULSE 60; RESP 18; TEMP 36.7; O2SAT 96; BMI 29.3
--- NOTE | 2024-12-30 10:31 | MHC.PC.OV ---
Vital Signs 12/30/24 10:31 Height 5 ft 2 in Weight 160 lb BMI 29.3 BP 134/68 Blood Pressure Location Lt brachial Position Sitting Respiration 18 Pulse 60 Pulse Source Pulse Oximeter Temp 98.1 F Temp Source Oral Pulse Oximetry (%) 96 Oxygen Delivery Method Room Air Intake Visit Reasons: Bowel issues Intake Note: Pt is here today for a follow up visit on bowel movement issue. Pt states that she has pain in her lower back. Allergies codeine [CODEINE] Allergy (Intermediate, Verified 12/30/24 10:34) HEADACHES hydrochlorothiazide [HYDROCHLOROTHIAZIDE] Allergy (Intermediate, Verified 12/30/24 10:34) NAUSEA & VOMITING, low K latex [LATEX] Allergy (Intermediate, Verified 12/30/24 10:34) RASH adhesive tape Allergy (Mild, Verified 12/30/24 10:34) Rash lisinopril [LISINOPRIL] Adverse Reaction (Mild, Verified 12/30/24 10:34) COUGH Tobacco use date assessed: 11/23/24 Fall risk assessment: No Falls in past year Last assessed Fall Risk: 12/30/24 Dental Screening Dental Screen Date: 11/23/24 HPI Bowel issues HPI Details Patient presents for the follow-up of chronic constipation. She reports having regular soft bowel movements since started taking stool softener and increasing fiber and fluid intake. She has episodes stool retention after bowel movement. She denies stool incontinence abdominal pain hematochezia melena weight loss. Hypertension and paroxysmal AFib are stable on current medications [facility] Medical History Osteoporosis Uterine prolapse Rectocele Hyperlipidemia Sinus bradycardia Atrial fibrillation HTN (hypertension) Surgical History S/P ablation of atrial flutter History of cholecystectomy Hx of tubal ligation Family History Father CVD (cardiovascular disease) Mother CVD (cardiovascular disease) Diabetes Other Substance use disorder Social History Household Members: Children Housing: House Do you presently have visiting nurse or other home services: No Alcohol intake: unknown Patient Tobacco Use Status: Former Tobacco user Years Smoked: 12 +/- e-Cigarette/Vaping Use: Never Used Second Hand Smoke Exposure: No service: No Current occupational status: retired 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 4. Feeling tired or having little energy: not at all Source: Developed by Drs. Lior Francois, Dee Arango, Jhoan Coronel and colleagues, with an educational simone from [employer]. Thrive Questionnaire Date Thrive assessed: 12/30/24 I am a: Patient What is your living situation today?: I have a steady place to live Within the past 12 months, did the food you bought not last and you didn't have the money to get more?: Never true Within the past 12 months, did you worry whether your food would run out before you got money to buy more?: Never true Do you have trouble paying for medicines?: No Do you have trouble getting transportation to medical appointments?: No Do you have trouble paying your heating and electricity bill?: No Do you have trouble taking care of your child, family member or friend?: No Do you have trouble with day-to-day activities such as bathing, preparing meals, shopping, managing finances, etc.?: No Are you currently unemployed and looking for a job?: No Are you interested in more education?: No Please select the resources that you would like help with: None Currently or been in a relationship where the following occur: No concerns reported THRIVE Score: 0 RENETTA-7 AMB Questionnaire RENETTA-7 Date RENETTA - 7 assessed: 11/23/24 Source: Developed by Drs. Lior Francois, Dee Arango, Jhoan Coronel and colleagues, with an educational simone from [employer]. Review of Systems Const All systems reviewed & are unremarkable except as noted in HPI and below ENT Reports no additional complaints Card Reports no additional complaints Resp Reports no additional complaints GI Reports no additional complaints Reports no additional complaints Physical exam (Primary Care) Vital Signs: Last Vital Signs Temp 98.1 F 12/30/24 10:31 Pulse 60 12/30/24 10:31 Resp 18 12/30/24 10:31 BP 134/68 12/30/24 10:31 Pulse Ox 96 03/28/25 10:31 Oxygen Delivery Method Room Air 12/30/24 10:31 BMI result Body Mass Index 29.3 Tobacco/Smoking Status: Tobacco use Status Tobacco use date assessed 11/23/24 12/30/24 10:31 Patient Tobacco Use Status Former Tobacco user 12/30/24 10:31 Tobacco use type 05/25/24 10:57 e-Cigarette/Vaping Use Never Used 12/30/24 10:31 Thrive Assessment: Date of Thrive Assessment Date Thrive assessed 12/30/24 12/30/24 10:36 Currently or been in a relationship where the following occur: No concerns reported Const General: no acute distress HENMT Head: Yes normal to inspection Resp Effort & Inspection: normal respiratory effort Auscultation: clear to auscultation bilaterally Cardio Rhythm: regular rhythm Heart sounds: S1 normal heart sound present and S2 normal heart sound present GI Inspection: Yes normal to inspection Palpation (GI): Soft to palpation Percussion: Yes normal to percussion Auscultation: normal bowel sounds Coding Level of Care Code Est Pt Level 4 (20964) Diagnoses Renal cyst, acquired, left N28.1 Rectocele N81.6 HTN (hypertension) I10 Hypertension type: unspecified Atrial flutter with rapid ventricular response I48.92 Assessment & Plan Assessment & Plan (1) Renal cyst, acquired, left: Comment: US 05/2024 left mid pole kidney question cyst 1.2 x 1.2 x 1.3 cm Code(s): N28.1 - Cyst of kidney, acquired Category: Medical Plan: Repeat renal ultrasound to follow-up on left kidney mass (2) Rectocele: Code(s): N81.6 - Rectocele Category: Medical Plan: Patient was advised to increase fiber intake like Metamucil continue stool softener and well-balanced diet. If the symptoms persist she will be referred to GI for flex sigmoidoscopy (3) HTN (hypertension): Code(s): I10 - Essential (primary) hypertension Category: Medical Qualifiers: Hypertension type: unspecified Qualified Code(s): I10 - Essential (primary) hypertension Plan: Continue current medications (4) Atrial flutter with rapid ventricular response: Comment: s/p ablation 05/2024 Dr. Graff, on amiodarone follow-up with Cardiology Code(s): I48.92 - Unspecified atrial flutter Category: Medical Plan: Continue medications follow-up with the Cardiology
== END 2024-12-30 12:01 | disposition home or self-care (01) ==
LOC: HO.HMCC 10:29
PROVIDERS: PCP Internal Medicine; Visit Provider Internal Medicine
DX: N28.1 Cyst of kidney, acquired (principal); N81.6 Rectocele; I10 Essential (primary) hypertension; I48.92 Unspecified atrial flutter

== ENCOUNTER → 2024-12-30 10:28 | Outpatient (BNVA) | payer MEDICARE, SELFPAY | PROVIDERS: PCP Internal Medicine; Visit Provider Internal Medicine | DX: N28.1 Cyst of kidney, acquired (principal); N81.6 Rectocele; I10 Essential (primary) hypertension; I48.92 Unspecified atrial flutter | CPT/HCPCS: 99212 ==

== ENCOUNTER 2025-01-12 08:41 | Outpatient (REF) | payer MEDICARE, SELFPAY ==
--- OUTSIDE RECORDS SUMMARY | 2025-01-12 10:07 | XMS_ITS | Clinical Summary ---
Author Organization [facility] Address [address] [place] [address] Care Team Providers Care Training And Development Head Name Role Phone Unavailable Primary Care Provider [...]
--- OUTSIDE RECORDS SUMMARY | 2025-01-12 10:07 | XMS_ITS | Encounter Summary ---
Author Organization [facility], Located [facility] Address [address] [place] [address] Care Team Providers Care Brilliandeer Lopper Name Role Phone Unavailable Primary Care Provider Unavailabl e Encounter Details Date Type Department Care Team (Late st Contact Info) Description 07/30/2017 Scanned Document [address] [id number] Provider, Generic Social History Tobacco Use Types [...]
[2025-01-12 11:08] LABS: Anion Gap 14 (12-20); Blood Urea Nitrogen 18 mg/dL (9-16); Calcium 9.4 mg/dL (8.4-10.2); Carbon Dioxide 26 mmol/L (22-29); Chloride 105 mmol/L (96-108); Estimated Glomerular Filt Rate > 60; Glucose Random 118 mg/dL (60-115); Potassium 4.1 mmol/L (3.3-5.1); Sodium 141 mmol/L (135-145)
== END 2025-01-12 08:42 | disposition home or self-care (01) ==
LOC: HO.LAB 08:41
PROVIDERS: PCP Internal Medicine; Visit Provider Internal Medicine Cardiovascular Disease
DX: I48.0 Paroxysmal atrial fibrillation (principal); I10 Essential (primary) hypertension
CPT/HCPCS: 36415; 80048; 93005; 99212

== ENCOUNTER 2025-01-12 08:41 | Outpatient (AMB) | payer MEDICARE, SELFPAY ==
[2025-01-12 08:51] VITALS: BP 130/80; PULSE 57; BMI 29.8
--- NOTE | 2025-01-12 08:51 | A.OFFVIS_ITS ---
Vital Signs 01/12/25 08:51 Height 5 ft 2 in Weight 163 lb 2.273 oz BMI 29.8 BP 130/80 Blood Pressure Location Lt brachial Position Sitting Pulse 57 Intake Visit Reasons: 6 mth f/up Intake Note: 6 month follow-up with ekg c/o pounding in heart at night for maybe 20 mins Bottle Selector Required: No Allergies codeine [CODEINE] Allergy (Intermediate, Verified 12/30/24 10:34) HEADACHES hydrochlorothiazide [HYDROCHLOROTHIAZIDE] Allergy (Intermediate, Verified 12/30/24 10:34) NAUSEA & VOMITING, low K latex [LATEX] Allergy (Intermediate, Verified 12/30/24 10:34) RASH adhesive tape Allergy (Mild, Verified 12/30/24 10:34) Rash lisinopril [LISINOPRIL] Adverse Reaction (Mild, Verified 12/30/24 10:34) COUGH Medication List - Last Reconciled 01/12/25 by Carson Angelo MD amiodarone 200 mg PO DAILY amlodipine 5 mg PO BID apixaban (Eliquis) 5 mg PO BID atorvastatin 40 mg PO DAILY cholecalciferol (vitamin D3) 25 mcg PO BEDTIME furosemide 20 mg PO DAILY metoprolol tartrate 12.5 mg (1/2 x 25 mg) PO BID nystatin (Nystop) 1 appl topical BID PRN oxyquinoline-sod.lauryl sulfat 0.025-0.01 % (Trimo-Agustin Jelly) 1 ea vaginal .2- 3x/wk sertraline 25 mg PO DAILY triamcinolone acetonide 0.1% 1 appl topical BID PRN valsartan 160 mg PO BID HPI Comments Details: March comes for follow-up. She continues to have intermittent episodes of palpitations at nighttime wakes her from sleep. Heart rate never goes about 80 beats per minute feels rapid pounding in his chest. Generally heart rate in the upper 50s to 60s. She still remains robust highly active and denies any exertional chest pain or shortness of breath. No orthopnea, PND, leg edema. No bleeding issues or neurologic events. Blood pressures been very well controlled. No lightheadedness, syncope. [facility] Medical History Paroxysmal atrial fibrillation Osteoporosis Uterine prolapse Rectocele Hyperlipidemia Sinus bradycardia Atrial fibrillation HTN (hypertension) Surgical History S/P ablation of atrial flutter History of cholecystectomy Hx of tubal ligation Family History Father CVD (cardiovascular disease) Mother CVD (cardiovascular disease) Diabetes Other Substance use disorder Social History Household Members: Children Housing: House Do you presently have visiting nurse or other home services: No Alcohol intake: unknown Patient Tobacco Use Status: Former Tobacco user Years Smoked: 12 +/- e-Cigarette/Vaping Use: Never Used Second Hand Smoke Exposure: No service: No Current occupational status: retired 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 Current occupational exposures/hazards: No Cognitive needs: No Hearing needs: No Vision needs: Yes Review of Systems Const Denies chills, Denies fatigue, Denies fever(s), Denies frequent falls, Denies weakness, Denies weight gain and Denies weight loss ENT Denies dizziness Card Denies chest pain, Denies leg edema, Denies lightheadedness, Denies palpitations, Denies dyspnea, Denies dyspnea on exertion, Denies orthopnea and Denies other (loss of consciousness) Resp Denies cough, Denies dyspnea and Denies dyspnea on exertion GI Denies hematochezia and Denies change in stool character Musc Denies abnormal gait, Denies muscle weakness, Denies numbness, Denies radiating pain into limb and Denies tingling Neuro Denies abnormal gait, Denies dizziness, Denies frequent falls, Denies numbness, Denies tingling and Denies weakness Endo Denies fatigue and Denies palpitations Physical Exam Vital Signs: Last Vital Signs Pulse 57 01/12/25 08:51 BP 130/80 01/12/25 08:51 BMI result Body Mass Index 29.8 Const General: cooperative, comfortable, no acute distress, alert and awake Nutritional Appearance: overweight Orientation/consciousness: patient oriented x3 Limitations: no limitations Neck Neck: Yes trachea midline, Yes supple and Yes JVD (Mild abdominal jugular reflux) Resp Effort & Inspection: normal respiratory effort Auscultation: clear to auscultation bilaterally Cardio Jugular venous distension: no JVD Palpation: normal PMI Rate: regular rate Rhythm: regular rhythm Heart sounds: S1 normal heart sound present, S2 normal heart sound present and Other heart sounds present (S4 present) GI Auscultation: normal bowel sounds Skin General skin exam: no rashes or lesions noted Neuro General: patient oriented x3 and no focal motor deficits Extrem General: No clubbing, No cyanosis and Yes edema (2+ bilateral below knee) Psych Appearance: grossly normal Affect: Anxious affect present Office Procedures EKG Details: EKG shows sinus bradycardia at 57 beats per minute with normal axis with QTC interval of 461 milliseconds 10568-[id number], Complete Assessment & Plan Assessment & Plan (1) Paroxysmal atrial fibrillation: Code(s): I48.0 - Paroxysmal atrial fibrillation Category: Medical Plan: Paroxysmal atrial flutter/fibrillation status post flutter ablation in May last year. Continues to have intermittent symptoms of palpitation which has suggestive of probably atrial flutter recurrence. Continue baby amiodarone therapy at this point time. Discussed with her the need for amiodarone therapy. She understands and agrees. Continue to check for amiodarone toxicity. Can perform a monitor to assess for her symptoms. She was advised take extra half metoprolol when she has these symptoms. Otherwise continue current therapy. Continue aggressive blood pressure control. Continue full oral anticoagulation, currently on Eliquis 5 mg b.i.d.. Semi annual renal function test should be pursued. (2) HTN (hypertension): Code(s): I10 - Essential (primary) hypertension Category: Medical Qualifiers: Hypertension type: unspecified Qualified Code(s): I10 - Essential (primary) hypertension Plan: Hypertension which has difficult control but currently well optimized on current therapy. Importance of good blood pressure control was discussed. Discussed with her to participate in stress mitigation strategies. Low-salt diet was discussed. Advised to monitor blood pressure at home maintain a log. Goal blood pressure less than 130/84. Encouraged to maintain activity level as tolerated. Will follow up in the clinic in 6 months time, sooner p.r.n.. Thank you for allowing me to partake in her care Orders: Orders Basic Metabolic Panel Today Carson Angelo MD I48.0 - Paroxysmal atrial fibrillation Medications: Changed From valsartan 320 mg PO DAILY 90 tabs 1RF To valsartan 160 mg PO BID Silvia Reynoso MD Coding Level of Care Code Est Pt Level 4 (67564) Complex EM visit Add On G2211 Diagnoses Paroxysmal atrial fibrillation I48.0 HTN (hypertension) I10 Hypertension type: unspecified CPT Codes EKG - CPT: 86372-[id number], Complete ([id number])
--- OUTSIDE RECORDS SUMMARY | 2025-01-12 09:01 | XMS_ITS ---
Author Organization [facility] Address [address] [facility] [address] [place] [address] Care Team Providers Care Finish Mill Operator Name Role Phone Silvia Reynoso Primary Care Provider GAVI Fernández Unavailable [phone] Allergies Allergen (clinical drug ingredient) Drug/Non Drug [...] 08/05/2024 Encounters Encounter Location Date Provider Diagnosis [facility] [address] [facility] [address] [place] [address] 08/05/2024 GAVI HOWARD Arthritis of left foot [...] aseptically debrided all ten toenails with a caramel cutter hand and curette; pt tolerated well. 08/05/2024 Pain [...] Date Notes Ciclopirox 0.77 % 1 application Prior Authorization Nurse ally Once a day for 90 days [...] Name:GAVI HOWARD, 02/06/2025 08:00:00 AM, [address], [address], Progress Notes * Laurel ARVIZUDOB:1940 (84 yo F)Acc No.[id number]:08/05/2024 Patient:?Laurel ARVIZU Provider:?Gavi Howard DPM :1940???Age:84 Y???Sex:Female D ate:08/05/2024 Address:[address] [place], [place] [phone] Pcp:Silvia Reynoso Subjective: * Chief Complaints: * [...] intact, protective sensation intact 10/10 with 5.07 [place] Tyler bilaterally, vibratory sensation with tuning fork [...] aseptically debrided all ten toenails with a caramel cutter hand and curette; pt tolerated well. ?? 3.?Other [...] required at this time. ?? * Procedure Codes:?70259 DEBRI DE NAIL, 6 OR MORE * Follow Up:?3 Months * Billing Information: * Visit Code:? * Procedure Codes:? 49513 DEBRIDE NAIL, 6 OR MORE. * Sign off status: Completed true * Provider:?Gavi Howard DPM Date:? 08/05/2024 Generated for Ulises zaldivar/Alla/Ponceitting on:?01/12/2025 09:01 AM EDT History and Physical Notes * [...] intact, protective sensation intact 10/10 with 5.07 [place] Tyler bilaterally, vibratory sensation with tuning fork [...]
--- OUTSIDE RECORDS SUMMARY | 2025-01-12 09:01 | XMS_ITS | Patient Health Record ---
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) Active confirmed Problem Primary hypertension (66531397) Primary hypertension (I10) Active confirmed Vital Signs Heart Rate 64 /min 11/07/2024 Temperature 97.1 degrees Fahrenheit 11/07/2024 Respiratory Rate 16 /min 11/07/2024 Height 61in in 11/07/2024 Weight 164.5 lbs 11/07/2024 BMI 31.08 kg/m2 11/07/2024 Encounters Encounter Location Date Provider Diagnosis [facility] [address] 02/01/2024 ADOLPH COLINDRES Pain in left toe(s) M79.675 ; Onychomycosis B35.1 ; Pain in right toe(s) M79.674 and Other specified peripheral vascular diseases I73.89 [facility] [address] 05/04/2024 ADOLPH COLINDRES Arthritis of left foot M19.072 ; Pain in left toe(s) M79.675 ; Onychomycosis B35.1 ; Pain in right toe(s) M79.674 and Other specified peripheral vascular diseases I73.89 [facility] [address] 08/05/2024 ADOLPH COLINDRES Arthritis of left foot M19.072 ; Pain in left toe(s) M79.675 ; Onychomycosis B35.1 ; Pain in right toe(s) M79.674 ; Other specified peripheral vascular diseases I73.89 and Blister of second toe S90.426A [facility] [address] 11/07/2024 ADOLPH COLINDRES Arthritis of left [...] aseptically debrided all ten toenails with a sample cutter and curette; pt tolerated well. 05/04/2024 [...] aseptically debrided all ten toenails with a sample cutter and curette; pt tolerated well. 05/04/2024 [...] aseptically debrided all ten toenails with a sample cutter and curette; pt tolerated well. 02/01/2024 [...] aseptically debrided all ten toenails with a sample cutter and curette; pt tolerated well. 08/05/2024 [...] Name:ADOLPH COLINDRES, 02/06/2025 08:00:00 AM, [address] [facility] [address], [place], [address], Insurance Providers Payer Name Payer Address Payer Phone Subscriber Number Group Number Insured Name Patient Relationship to Insured Coverage Start Date Coverage End Date [employer] Medicare [id number] [address] [address] [place] [phone] [id number] March Self - patient is the insured Medical (General) History Medical History History ICD Code atrial flutter hypertension peripheral vascular disease hypercholeremia hypokalemia vitamin D deficiency diverticulosis rectocele uterine prolapse osteopenia hand eczema detention anticoagulation-on coumadin + COVID 11/2022 COVID vaccinated X 2 (Moderna) and 1 dixon ster (Moderna) Surgical History Surgery Date(Month/Year) endoscopy colonoscopy tubal ligation eye surgery Hospitalization History Reason Date(Month/Year) sepsis 05/2024 vaginal delivery 1971 vaginal delivery 1966 vaginal delivery 1962 vaginal delivery 1960
--- OUTSIDE RECORDS SUMMARY | 2025-01-12 09:02 | XMS_ITS ---
Author Organization [facility] Address [address] [facility] [address] [place] [address] Care Team Providers Care Architectural Practice Manager Name Role Phone Silvia Reynoso Primary Care Provider GAVI Fernández Unavailable [phone] Allergies Allergen (clinical drug ingredient) Drug/Non Drug [...] Orally twice a day Active Vital Signs Temperature 97.1 degrees Fahrenheit 11/07/19 Heart Rate 64 /min 11/07/2024 Respiratory Rate 16 /min 11/07/2024 Height 61in in 11/07/2024 Weight 164.5 lbs 11/07/2024 BMI 31.08 kg/m2 11/07/2024 Encounters Encounter Location Date Provider Diagnosis [facility] [address] [facility] [address] [place] [address] 11/07/2024 GAVI HOWARD Arthritis of left foot [...] aseptically debrided all ten toenails with a rubber flap cutter and curette; pt tolerated well. 11/07/2024 [...] 30 days Ciclopirox 0.77 % 1 application Parts Expediter ally Once a day for 90 days Treatment Notes Assessment Notes Arthritis of left foot RX given for dicl ofenac gel to apply to the left big toe joint as needed for arthritic pain. Next Appt Details Follow Up: 3 Months, Reason: Provider Name:GAVI HOWARD, 02/06/2025 08:00:00 AM, [address], [address], Progress Notes * NOLBERTO MarchDOB:1940 (84 yo F)Acc No.[id number]:11/07/2024 Progress Note Patient:?MANESHANNEN Laurel Provider:?Gavi Howard DPM :1940???Age:84 Y???Sex:Female D ate:11/07/2024 Address:[address] [place], [place] [phone] Pcp:Silvia Reynoso Subjective: * Chief Complaints: * [...] intact, protective sensation intact 10/10 with 5.07 [place] Tyler bilaterally, vibratory sensation with tuning fork [...] aseptically debrided all ten toenails with a rubber flap cutter and curette; pt tolerated well. ?? [...] feet periodically throughout the day.?? * Procedure Codes:?85613 DEBRI DE NAIL, 6 OR MORE, Modifiers: q9 * Follow Up:?3 Months * Billing Information: * Visit Code:? 55905 Office Visit, Est Pt., Level 2. Modifiers: 25 * Procedure Codes:? 84160 DEBRIDE NAIL, 6 OR MORE. Modifiers: q9 * Sign off status: Completed true * Provider:?Gavi Howard DPM Date:? 11/07/2024 Generated for Ulises zaldivar/Alla/Ponceitting on:?01/12/2025 09:01 AM EDT History and Physical Notes * HPI (History of Present Illness) Category Sub-Category Detail Notes Category Not es Constitutional This 84 y/o f emabill returns to my office as a follow-up [...] intact, protective sensation intact 10/10 with 5.07 [place] Tyler bilaterally, vibratory sensation with tuning fork [...]
--- OUTSIDE RECORDS SUMMARY | 2025-01-12 09:02 | XMS_ITS | Encounter Summary ---
Author Organization [facility] Address [address] [place] [address] Care Team Providers Care Director Of Income Tax Name Role Phone Unavailable Primary Care Provider Unavailabl e Encounter Details Date Type Department Care Team (Late st Contact Info) Description 07/30/2017 Scanned Document [address] [phone] Provider, Generic Social History Tobacco Use Types [...]
--- OUTSIDE RECORDS SUMMARY | 2025-01-12 09:02 | XMS_ITS ---
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 05/04/2024 [...] days 05/04/2024 Ciclopirox 0.77 % 1 application Anglesmith Helper ally Once a day for 90 days Treatment Notes Assessment Notes Arthritis of left foot RX given for dicl ofenac gel to apply to the left big toe joint as needed for arthritic pain. Next Appt Details Follow Up: 3 Months, Reason: Provider Name:GAVI HOWARD, 02/06/2025 08:00:00 AM, [address] [facility] [address], [place], [address], Progress Notes * NOLBERTO MarchDOB:1940 (83 yo F)Acc No.[id number]:05/04/2024 Patient:?NOLBERTO March Provider:?Gavi Howard DPM :1940???Age:83 Y???Sex:Female D ate:05/04/2024 Address:[address] [place] [phone] Pcp:Silvia Reynoso Subjective: * Chief Complaints: * [...] intact, protective sensation intact 10/10 with 5.07 [place] Tyler bilaterally, vibratory sensation with tuning fork [...] aseptically debrided all ten toenails with a book cutter and curette; pt tolerated well. ?? [...] feet periodically throughout the day.?? * Procedure Codes:?12109 DEBRI DE NAIL, 6 OR MORE * Follow Up:?3 Months * Billing Information: * Visit Code:? * Procedure Codes:? 50277 DEBRIDE NAIL, 6 OR MORE. * Sign off status: Completed true * Provider:Sylvia Howard DPM Date:? 05/04/2024 Generated for Ulises zaldivar/Alla/Ponceitting on:?01/12/2025 09:01 AM [...] intact, protective sensation intact 10/10 with 5.07 [place] Tyler bilaterally, vibratory sensation with tuning fork [...]
--- OUTSIDE RECORDS SUMMARY | 2025-01-12 09:02 | XMS_ITS | Clinical Summary ---
Author Organization [facility] Address [address] [place] [address] Care Team Providers Care Foreign Broadcast Specialist Name Role Phone Unavailable Primary Care Provider [...]
== END 2025-01-12 09:14 | disposition home or self-care (01) ==
PROVIDERS: PCP Internal Medicine; Visit Provider Internal Medicine Cardiovascular Disease
DX: I48.0 Paroxysmal atrial fibrillation (principal); I10 Essential (primary) hypertension
CPT/HCPCS: 93010; 99214; G2211

== ENCOUNTER 2025-01-31 13:35 | Outpatient (REF) | payer MEDICARE, SELFPAY ==
--- NOTE | ~2025-01-31 | US_ITS ---
CLINICAL HISTORY: N28.1 - Cyst of kidney, acquired US Renal Comparison: None Findings: Right kidney normal size and echotexture, 10.2 cm length. Left kidney normal size and echotexture, 9.5 cm length. There is a small exophytic hypoechoic structure in the midpole of the right kidney measuring up to 1 cm in diameter possibly a cyst. No hydronephrosis of either kidney. Normal color Doppler IMPRESSION: 1. Small likely benign exophytic hypoechoic lesion midpole left kidney. I suspect this represents a cyst. Please re-evaluate with sonography in 6 months' time. This document has been electronically signed by: Eugene Jackson MD on 02/02/2025 10:17:54
--- OUTSIDE RECORDS SUMMARY | 2025-01-31 15:41 | XMS_ITS | Encounter Summary ---
Author Organization [facility] Address [address] [place] [address] Care Team Providers Care Community Health Nurse Staff Name Role Phone Claudia Zamora DO Primary Care Pro vider Unavailable Zuleima Gallagher MD Primary Care Provider [phone] Reason for Visit * Reason Onset Date Comments APPOINTMENT 07/23/2017 External Echo Encounter Details Date Type Department Care Team Description 07/23/2017 Telephone Radiology - [address] [address] Maria Teresa Cabrera PA-C APPOINTMENT (External Echo) Social History Tobacco Use Types Packs/Day Years Used Date Smoking Tobacco: Former Cigarettes Q uit: 08/10/1973 Smokeless Tobacco: Never Alcohol Use Standard Drinks/Week Comments Yes 0 (1 standard drink = 0.6 oz pur e alcohol) rare Sex Assigned at Date Recorded Not on file Job Start Date Occupation Industry Not on file Not on file Not on file documented as of this encounter Miscellaneous Notes * Telephone Encounter - Eden Zamorano - 07/23/2017 3:47 PM EDT [place] - no auth required * Telephone Encounter - Gracia Dorantes - 07/23/2017 3:20 PM EDT Dear provider, due to limited access at this time, the echocardiogram order you placed for March Babbidge has been sent externally to [facility] to be performed. The order has been faxed to our Prior Authorization pool. You are not required to take any further action. documented in this encounter Plan of Treatment Not on file documented as of this encounter Visit Diagnoses Not on filedocumented in this encounter Care Teams Community Health Nurse Staff Relationship Specialty Start Date End Date Claudia Zamora DO PCP - General Internal Medicine 11/26/15 04/22/21 Zuleima Gallagher MD [address] [place] [address] PCP - General Internal Medicine 04/23/21 documented as of this encounter
--- OUTSIDE RECORDS SUMMARY | 2025-01-31 15:41 | XMS_ITS | Encounter Summary ---
Author Organization [facility] Address [address] [place] [address] Care Team Providers Care Regional Retail Sales Manager Name Role Phone Claudia Zamora DO Primary Care Pro vider Unavailable Zuleima Gallagher MD Primary Care Provider [phone] Encounter Details Date Type Department Care Team Description 09/27/2020 Hospital Medical Records [address] [place] [address] Veda Sanders Social History Tobacco Use Types Packs/Day Years Used Date Smoking Tobacco: Former Cigarettes 0.5 20 0 02/02/1958 - 08/10/1973 Smokeless Tobacco: Never Alcohol Use Standard Drinks/Week Comments No 0 (1 standard drink = 0.6 oz pur e alcohol) once a yr Sex Assigned at Date Recorded Not on file Job Start Date Occupation Industry Not on file Not on file Not on file COVID-19 Exposure Response Date Recorded In the last month, have you been in contact with someone who was confirmed or suspected to have Coronavirus / COVID-19? No / Unsure 09/26/2020 1:45 PM EST documented as of this encounter Plan of Treatment Not on file documented as of this encounter Visit Diagnoses Not on filedocumented in this encounter Care Teams Regional Retail Sales Manager Relationship Specialty Start Date End Date Claudia Zamora DO PCP - General Internal Medicine 11/26/15 04/22/21 Zuleima Gallagher MD [address] [place] [address] [id number] PCP - General Internal Medicine 04/23/21 documented as of this encounter
--- OUTSIDE RECORDS SUMMARY | 2025-01-31 15:41 | XMS_ITS | Encounter Summary ---
Author Organization [facility] Address [address] [place] [address] Care Team Providers Care Liquid Center Assembler Name Role Phone Claudia Zamora DO Primary Care Pro vider Unavailable Zuleima Gallagher MD Primary Care Provider [phone] Encounter Details Date Type Department Care Team Description 09/26/2020 Hospital Medical Records [address] [place] [address] [facility] Social History Tobacco Use Types Packs/Day Years [...] on filedocumented in this encounter Care Teams Liquid Center Assembler Relationship Specialty Start Date End Date Claudia Zamora DO PCP - General Internal Medicine 11/26/15 04/22/21 Zuleima Gallagher MD [address] [place] [address] PCP - General Internal Medicine 04/23/21 documented as of this encounter
--- OUTSIDE RECORDS SUMMARY | 2025-01-31 15:41 | XMS_ITS | Encounter Summary ---
Author Organization [facility] Address [address] [place] [address] Care Team Providers Care Surgical Aide Name Role Phone Zuleima Gallagher MD Primary Care Provider [phone] Reason for Visit * Reason Onset Date Comments REFERRAL 05/21/2021 Encounter Details Date Type Department Care Team Description 05/21/2021 Telephone Gastroenterology - [place] [address] [facility] [address] [place] [address] Ho Grant PA-C REFERRAL Social History Tobacco Use Types Packs/Day Years [...] have Coronavirus / COVID-19? No / Unsure 05/20/2021 10:12 AM EDT documented as of this encounter Miscellaneous Notes * Telephone Encounter - Megtennille Torres L.P.N. - 06/04/2021 1:23 PM EDT ----- Message from Sandra Mnedoza PA-C sent at 06/04/2021 12:28 PM EDT ----- Please let patient know biopsy is benign * Telephone Encounter - Nanci Wood - 05/28/2021 8:49 AM EDT Pls call pt to schedule after 2:30 PM [phone] * Telephone Encounter - Yazan Monroy - 05/21/2021 1:16 PM EDT 1st call to patient; Phoned patient to schedule follow-up for changes in Sx's. Left message on voicemail asking patient to call and schedule. documented in this encounter Plan of Treatment Not on file documented as of this encounter Visit Diagnoses Not on filedocumented in this encounter Care Teams Surgical Aide Relationship Specialty Start Date End Date Zuleima Gallagher MD [address] [place] [address] PCP - General Internal Medicine 04/23/21 documented as of this encounter
--- OUTSIDE RECORDS SUMMARY | 2025-01-31 15:41 | XMS_ITS | Encounter Summary ---
Author Organization [facility] Address [address] [place] [address] Care Team Providers Care Electric Mule Operator Name Role Phone Claudia Zamora DO Primary Care Pro vider Unavailable Zuleima Gallagher MD Primary Care Provider [phone] Reason for Visit * Reason Onset Date Comments Prior Authorization 05/04/2020 Hydrocortiso ne/Iodoq 1-1.9% Cream Encounter Details Date Type Department Care Team Description 05/04/2020 Telephone Dermatology - [address] [address] Cindy Martinez PA-C Prior Authorization (Hydrocortisone/Iodoq 1-1.9% Cream) Social History Tobacco Use Types Packs/Day Years Used Date Smoking Tobacco: Former Cigarettes 0.5 20 0 02/02/1958 - 08/10/1973 Smokeless Tobacco: Never Alcohol Use Standard Drinks/Week Comments No 0 (1 standard drink = 0.6 oz pur e alcohol) Sex Assigned at Date Recorded Not on file Job Start Date Occupation Industry Not on file Not on file Not on file documented as of this encounter Miscellaneous Notes * Telephone Encounter - Beth Landa M.A. - 05/10/2020 1:03 PM EDT Called patient she had already picked Rx, went over instructions with patient. * Telephone Encounter - Alexandra Alvarado M.A. - 05/07/2020 3:43 PM EDT Please have your staff notify patient [place] p [phone] Prior Modesta Alvarado M.A. [facility] Prior Authorizations Ext [phone] Fax: [phone] [place] [phone] Prior Modesta otoole * Telephone Encounter - Roseanna Wilcox P.A.-C. - 05/07/2020 11:31 AM EDT Please inform patient Vytone ointment is not covered. 2 prescriptions for Aclovate and clotrimazoleare sent to the pharmacy as an alternative to mix together and apply twice daily for the next 1 to 2 weeks, then stop. * Telephone Encounter - Milka Melendez M.A. - 05/07/2020 10:54 AM EDT Hydrocortisone/Lodoqinol/aloe 1-1.9% has been denied. This medication is an exclusion on patients pharmacy benefits and per Nancy at [facility] there are no alternatives. Please advise, Thank you, Milka Cervantes Prior Authorization Dept Ext [phone] Fax [phone] * Telephone Encounter - Milka Melendez M.A. 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 * Telephone Encounter - Cindy Sabillon - 05/04/2020 3:55 PM EDT Prior Authorization for Medication-do not complete and send this encounter unless you have the fax from the pharmacy. Is this a Cover My Meds request: [place] of Medication Hydrocortisone/Iodoq 1-1.9% Cream Dose of Medication What is the RX # from the faxed refill? How does patient take this med? What Pharmacy did the fax come from: [facility] fax #: [phone] [employer] Information from fax: What Prescription Plan does the patient have? [facility]/N if applicable: Cardholder ID: [id number] Person Code: Relationship Code: Help desk phone: [phone] documented in this encounter Plan of Treatment Not on file documented as of this encounter Visit Diagnoses Not on filedocumented in this encounter Care Teams Electric Mule Operator Relationship Specialty Start Date End Date Claudia Zamora DO PCP - General Internal Medicine 11/26/15 04/22/21 Zuleima Gallagher MD [address] [place] [address] PCP - General Internal Medicine 04/23/21 documented as of this encounter
--- OUTSIDE RECORDS SUMMARY | 2025-01-31 15:41 | XMS_ITS | Encounter Summary ---
Author Organization [facility] Address [address] [place] [address] Care Team Providers Care Body Designer Name Role Phone Claudia Zamora DO Primary Care Pro vider Unavailable Zuleima Gallagher MD Primary Care Provider [phone] Reason for Referral * Non NIKHIL (Routine) - Closed Specialty Diagnoses / Procedures Referred By Nakita rivera Referred To Contact Podiatry Procedures REFERRAL TO PODIATRY Claudia Zamora DO [address] [place] [address] Pod[address] [address] Referral ID Status Reason Start Date Expiration Date Visits Re quested Visits Authorized [id number] Closed 02/29/2016 02/28/2017 1 1 Encounter Details Date Type Department Care Team Description 02/29/2016 Orders Only Adult Medicine [address] [address] Claudia Zamora DO Social History Tobacco Use Types Packs/Day Years [...] on filedocumented in this encounter Care Teams Body Designer Relationship Specialty Start Date End Date Claudia Zamora DO PCP - General Internal Medicine 11/26/15 04/22/21 Zuleima Gallagher MD [address] [place], [place] [phone] PCP - General Internal Medicine 04/23/21 documented as of this encounter
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
--- OUTSIDE RECORDS SUMMARY | 2025-01-31 15:41 | XMS_ITS | Encounter Summary ---
Author Organization [facility] [employer] [facility] Address [address] [place] [address] Care Team Providers Care Funeral Arranger Name Role Phone Zuleima Gallagher MD Primary Care Provider [phone] Encounter Details Date Type Department Care Team Description 05/29/2021 De[place]rer Strip Report Medical Records [address] [place] [address] Carson Angelo MD Social History Tobacco Use Types Packs/Day Years [...] have Coronavirus / COVID-19? No / Unsure 05/31/2021 7:50 AM EDT documented as of this encounter Plan of Treatment Not on file documented as of this encounter Visit Diagnoses Not on filedocumented in this encounter Care Teams Funeral Arranger Relationship Specialty Start Date End Date Zuleima Gallagher MD [address] [place] [address] PCP - General Internal Medicine 04/23/21 documented as of this encounter
--- OUTSIDE RECORDS SUMMARY | 2025-01-31 15:41 | XMS_ITS | Encounter Summary ---
Author Organization [facility] Address [address] [place] [address] Care Team Providers Care Rigging Supervisor Name Role Phone Claudia Zamora DO Primary Care Pro vider Unavailable Zuleima Gallagher MD Primary Care Provider [phone] Encounter Details Date Type Department Care Team Description 06/08/2020 Fish And Game Club Manager Report Medical Records [address] [place] [address] Louann Rodas FNP Social History Tobacco Use Types Packs/Day Years [...] have Coronavirus / COVID-19? No / Unsure 06/05/2020 9:08 AM EDT documented as of this encounter Plan of Treatment Not on file documented as of this encounter Visit Diagnoses Not on filedocumented in this encounter Care Teams Rigging Supervisor Relationship Specialty Start Date End Date Claudia Zamora DO PCP - General Internal Medicine 11/26/15 04/22/21 Zuleima Gallagher MD [address] [place] [address] PCP - General Internal Medicine 04/23/21 documented as of this encounter
--- OUTSIDE RECORDS SUMMARY | 2025-01-31 15:41 | XMS_ITS | Encounter Summary ---
Author [facility] Address [address] [place] [address] Care Team Providers Care Manager Bilingual Name Role Phone Claudia Zamora DO Primary Care Pro vider Unavailable Zuleima Gallagher MD Primary Care Provider [phone] Encounter Details Date Type Department Care Team Description 10/29/2017 Billet Inspector Report Medical Records [address] [place] [address] Carson Angelo MD Social History Tobacco Use Types Packs/Day Years Used Date Smoking Tobacco: Former Cigarettes Q uit: 08/10/1973 Smokeless Tobacco: Never Alcohol Use Standard Drinks/Week Comments Yes 0 (1 standard drink = 0.6 oz pur e alcohol) rare,on holidays Sex Assigned at Date Recorded Not on file Job Start Date Occupation Industry Not on file Not on file Not on file documented as of this encounter Plan of Treatment Not on file documented as of this encounter Visit Diagnoses Not on filedocumented in this encounter Care Teams Manager Bilingual Relationship Specialty Start Date End Date Claudia Zamora DO PCP - General Internal Medicine 11/26/15 04/22/21 Zuleima Gallagher MD [address] [place] [phone] PCP - General Internal Medicine 04/23/21 documented as of this encounter
--- OUTSIDE RECORDS SUMMARY | 2025-01-31 15:41 | XMS_ITS | Encounter Summary ---
Author Organization [facility] Address [address] [place] [address] Care Team Providers Care Slurry Control Tender Name Role Phone Claudia Zamora DO Primary Care Pro vider Unavailable Zuleima Gallagher MD Primary Care Provider [phone] Encounter Details Date Type Department Care Team Description 07/06/2018 Instrumentation Technician Report Medical Records [address] [place] [address] Carson Angelo MD Social History Tobacco Use [...] on filedocumented in this encounter Care Teams Slurry Control Tender Relationship Specialty Start Date End Date Claudia Zamora DO PCP - General Internal Medicine 11/26/15 04/22/21 Zuleima Gallagher MD [address] [place], [place] [phone] PCP - General Internal Medicine 04/23/21 documented as of this encounter
--- OUTSIDE RECORDS SUMMARY | 2025-01-31 15:41 | XMS_ITS | Encounter Summary ---
Author Organization [facility] [employer] [facility] Address [address] [place] [address] Care Team Providers Care Tag Press Operator Name Role Phone Claudia Zamora DO Primary Care Pro vider Unavailable Zuleima Gallagher MD Primary Care Provider [phone] Encounter Details Date Type Department Care Team Description 11/04/2019 Telephone Adult Medicine [address] [id number] Claudia Zamora DO Social History Tobacco Use [...] on filedocumented in this encounter Care Teams Tag Press Operator Relationship Specialty Start Date End Date Claudia Zamora DO PCP - General Internal Medicine 11/26/15 04/22/21 Zuleima Gallagher MD [address] [place] [address] [phone] PCP - General Internal Medicine 04/23/21 documented as of this encounter
--- OUTSIDE RECORDS SUMMARY | 2025-01-31 15:41 | XMS_ITS | Encounter Summary ---
Author Organization [facility] Address [address] [place] [address] Care Team Providers Care Drawer In Dobby Loom Name Role Phone Claudia Zamora DO Primary Care Pro vider Unavailable Zuleima Gallagher MD Primary Care Provider [phone] Encounter Details Date Type Department Care Team Description 11/01/2020 Release of Information Medical Records [address] [place] [address] Abstract, Provider Social History Tobacco Use Types Packs/Day Years [...] have Coronavirus / COVID-19? No / Unsure 10/30/2020 8:12 AM EST documented as of this encounter Plan of Treatment Not on file documented as of this encounter Visit Diagnoses Not on filedocumented in this encounter Care Teams Drawer In Dobby Loom Relationship Specialty Start Date End Date Claudia Zamora DO PCP - General Internal Medicine 11/26/15 04/22/21 Zuleima Gallagher MD [address] [place] [address] PCP - General Internal Medicine 04/23/21 documented as of this encounter
--- OUTSIDE RECORDS SUMMARY | 2025-01-31 15:41 | XMS_ITS | Encounter Summary ---
Author Organization [facility] Address [address] [place] [address] Care Team Providers Care Director Trade Name Role Phone Claudia Zamora DO Primary Care Pro vider Unavailable Zuleima Gallagher MD Primary Care Provider [phone] Encounter Details Date Type Department Care Team Description 02/13/2021 Art Director Report Medical Records [address] [place] [address] Gavi Howard DPM Social History Tobacco Use Types Packs/Day Years [...] have Coronavirus / COVID-19? No / Unsure 02/01/2021 7:50 AM EDT documented as of this encounter Plan of Treatment Not on file documented as of this encounter Visit Diagnoses Not on filedocumented in this encounter Care Teams Director Trade Relationship Specialty Start Date End Date Claudia Zamora DO PCP - General Internal Medicine 11/26/15 04/22/21 Zuleima Gallagher MD [address] [place] [phone] PCP - General Internal Medicine 04/23/21 documented as of this encounter
--- OUTSIDE RECORDS SUMMARY | 2025-01-31 15:41 | XMS_ITS | Encounter Summary ---
Author Organization [facility] [email or web address] [facility] Address [address] [place] [address] Care Team Providers Care Wallpaper Hanger Name Role Phone Claudia Zamora DO Primary Care Pro vider Unavailable Zuleima Gallagher MD Primary Care Provider [phone] Encounter Details Date Type Department Care Team Description 11/04/2019 Orders Only Adult Medicine [address] [phone] Claudia Zamora DO Social History Tobacco Use [...] on filedocumented in this encounter Care Teams Wallpaper Hanger Relationship Specialty Start Date End Date Claudia Zamora DO PCP - General Internal Medicine 11/26/15 04/22/21 Zuleima Gallagher MD [address] [place] [address] [phone] PCP - General Internal Medicine 04/23/21 documented as of this encounter
--- OUTSIDE RECORDS SUMMARY | 2025-01-31 15:41 | XMS_ITS | Encounter Summary ---
Author Organization [facility] Address [address] [place] [address] Care Team Providers Care Dietitian Name Role Phone Claudia Zamora DO Primary Care Pro vider Unavailable Zuleima Gallagher MD Primary Care Provider [phone] Reason for Referral * Non NIKHIL (Routine) - Authorized/Booked Specialty Diagnoses / Procedures Referred By Controsenda rivera Referred To Contact Dermatology Procedures REFERRAL TO DERMATOLOGY Dari Goodman MD [address] [place] [address] Derm/[place] [address] [place] [address] Referral ID Status Reason Start Date Expiration Date V isits Requested Visits Authorized [id number] Authorized/B ooked 04/06/2020 04/06/2021 1 1 Encounter Details Date Type Department Care Team Description 04/06/2020 Orders Only Adult Medicine B - [place] [address] [place] [address] Dari Goodman MD Social History Tobacco Use Types Packs/Day [...] on filedocumented in this encounter Care Teams Dietitian Relationship Specialty Start Date End Date Claudia Zamora DO PCP - General Internal Medicine 11/26/15 04/22/21 Zuleima Gallagher MD [address] [place] [phone] PCP - General Internal Medicine 04/23/21 documented as of this encounter
--- OUTSIDE RECORDS SUMMARY | 2025-01-31 15:41 | XMS_ITS | Encounter Summary ---
Author Organization [facility] Address [address] [place] [address] Care Team Providers Care Edge Burnisher Name Role Phone Claudia Zamora DO Primary Care Pro vider Unavailable Zuleima Gallagher MD Primary Care Provider [phone] Reason for Visit * Reason Onset Date Comments TEST RESULTS 10/07/2018 result notes Encounter Details Date Type Department Care Team Description 10/07/2018 Telephone Adult Medicine [address] [address] Maria Teresa Cabrera PA-C TEST RESULTS (result notes) Social History Tobacco Use Types Packs/Day Years [...] encounter Miscellaneous Notes * Telephone Encounter - Lew Melton M.A. - 10/07/2018 4:50 PM EST Left message for patien to return call. Please tell patient I switched from simvastatin to lipitor for hopefully better control of lipids. Would like to repeat labs in 6-8 weeks documented in this encounter Plan of Treatment Not on file documented as of this encounter Visit Diagnoses Not on filedocumented in this encounter Care Teams Edge Burnisher Relationship Specialty Start Date End Date Claudia Zamora DO PCP - General Internal Medicine 11/26/15 04/22/21 Zuleima Gallagher MD [address] [place] [address] PCP - General Internal Medicine 04/23/21 documented as of this encounter
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
--- OUTSIDE RECORDS SUMMARY | 2025-01-31 15:41 | XMS_ITS | Encounter Summary ---
Author Organization [facility] [employer] [facility] Address [address] [place] [address] Care Team Providers Care Nursing Home Administrator Name Role Phone Claudia Zamora DO Primary Care Pro vider Unavailable Zuleima Gallagher MD Primary Care Provider [phone] Encounter Details Date Type Department Care Team Description 07/20/2018 Orders Only Adult Medicine [address] [id number] Claudia Zamora DO Social History Tobacco Use [...] on filedocumented in this encounter Care Teams Nursing Home Administrator Relationship Specialty Start Date End Date Claudia Zamora DO PCP - General Internal Medicine 11/26/15 04/22/21 Zuleima Gallagher MD [address] [place] [id number] PCP - General Internal Medicine 04/23/21 documented as of this encounter
--- OUTSIDE RECORDS SUMMARY | 2025-01-31 15:41 | XMS_ITS | Encounter Summary ---
Author Organization [facility] Address [address] [place] [address] Care Team Providers Care Classified Advertising Clerk Name Role Phone Claudia Zamora DO Primary Care Pro vider Unavailable Zuleima Gallagher MD Primary Care Provider Reason for Visit * Reason Onset Date Comments Provider Call Back 05/11/2020 Encounter Details Date Type Department Care Team Description 05/11/2020 Telephone Dermatology - [address] [phone] Roseanna Wilcox PA-C Provider Call Back Social History Tobacco Use Types Packs/Day Years [...] Telephone Encounter - Beth Landa M.A. - 05/11/2020 1:37 PM EDT Spoke to patient went over her concerns with bx site, she was still wearing bandaid with vaseline, patient was advise to discontinue bandaid and vaseline, apply warm compresses to area and if there is not improvement or site doesn't look better by Thursday to please give us a call. * Telephone Encounter - Cindy Sabillon - 05/11/2020 9:19 AM EDT Patient would like to touch base with you regarding the spot you biopsied. She said she thinks it is getting larger. Said only a little spot of yellow left, and then a lot of red. Please call after 1:00 documented in this encounter Plan of Treatment Not on file documented as of this encounter Results * (ABNORMAL) VITAMIN B-12, ASSAY (08/28/2020 11:19 AM EST) VITAMIN B12 > 2000(H) 250 - 900 pg/mL 08/28/2020 3:34 PM EST [facility] 08/28/2020 11:1 9 AM EST 08/28/2020 11:20 AM EST Michelet Moran COMPUTER ENGINEER LAB [facility] documented in this encounter Visit Diagnoses Diagnosis B12 deficiency- Primary Other B-complex deficiencies documented in this encounter Care Teams Classified Advertising Clerk Relationship Specialty Start Date End Date Claudia Zamora DO PCP - General Internal Medicine 11/26/15 04/22/21 Zuleima Gallagher MD [address] [place] [address] PCP - General Internal Medicine 04/23/21 documented as of this encounter
--- OUTSIDE RECORDS SUMMARY | 2025-01-31 15:41 | XMS_ITS | Encounter Summary ---
Author Organization [facility] Address [address] [place] [address] Care Team Providers Care Chief Engineer Waterworks Name Role Phone Claudia Zamora DO Primary Care Pro vider Unavailable Zuleima Gallagher MD Primary Care Provider [phone] Encounter Details Date Type Department Care Team Description 10/28/2017 Orders Only Medical Records [address] [place] [address] Maria Teresa Cabrera PA-C Social History Tobacco Use Types Packs/Day Years [...] on file documented as of this encounter Procedures Procedure Name Priority Date/Time Associated Diagnosis Comments OUTSIDE LOOP RECORDER Routine 09/22/2017 documented in this encounter Results * OUTSIDE LOOP RECORDER (09/22/2017) Maria Teresa Cabrera PA-C CARDIOLOGY documented in this encounter Visit Diagnoses Not on filedocumented in this encounter Care Teams Chief Engineer Waterworks Relationship Specialty Start Date End Date Claudia Zamora DO PCP - General Internal Medicine 11/26/15 04/22/21 Zuleima Gallagher MD [address] [place] [address] PCP - General Internal Medicine 04/23/21 documented as of this encounter
--- OUTSIDE RECORDS SUMMARY | 2025-01-31 15:41 | XMS_ITS | Encounter Summary ---
Author Organization [facility] Address [address] [place] [address] Care Team Providers Care Cutter Hand Name Role Phone Claudia Zamora DO Primary Care Pro vider Unavailable Zuleima Gallagher MD Primary Care Provider [phone] Reason for Referral * Non NIKHIL (Routine) - Authorized/Booked Specialty Diagnoses / Procedures Referred By Nakita rivera Referred To Contact Gastroenterology Procedures REFERRAL TO GASTROENTEROLOGY Claudia Zamora DO [address] [place], [place] [id number] [place] [address] [address] Referral ID Status Reason Start Date Expiration Date V isits Requested Visits Authorized CONS [id number] Authorized/ Booked 08/06/2017 08/06/2018 12 12 Encounter Details Date Type Department Care Team Description 08/06/2017 Orders Only Adult Medicine [place] - [address] [address] Claudia Zamora DO Social History Tobacco Use [...] on filedocumented in this encounter Care Teams Cutter Hand Relationship Specialty Start Date End Date Claudia Zamora DO PCP - General Internal Medicine 11/26/15 04/22/21 Zuleima Gallagher MD [address] [place] [address] PCP - General Internal Medicine 04/23/21 documented as of this encounter
--- OUTSIDE RECORDS SUMMARY | 2025-01-31 15:41 | XMS_ITS | Encounter Summary ---
Author Organization [facility] [employer] [facility] Address [address] [place] [address] Care Team Providers Care Gis Geographer Name Role Phone Claudia Zamora DO Primary Care Pro vider Unavailable Zuleima Gallagher MD Primary Care Provider [phone] Encounter Details Date Type Department Care Team Description 07/31/2017 Hospital Medical Records [address] [place] [address] Abstract, Provider Social History Tobacco Use Types [...] on filedocumented in this encounter Care Teams Gis Geographer Relationship Specialty Start Date End Date Claudia Zamora DO PCP - General Internal Medicine 11/26/15 04/22/21 Zuleima Gallagher MD [address] [place] [id number] PCP - General Internal Medicine 04/23/21 documented as of this encounter
--- OUTSIDE RECORDS SUMMARY | 2025-01-31 15:41 | XMS_ITS | Encounter Summary ---
Author Organization [facility] Address [address] [place] [address] Care Team Providers Care Claim Investigator Name Role Phone Claudia Zamora DO Primary Care Pro vider Unavailable Zuleima Gallagher MD Primary Care Provider [phone] Encounter Details Date Type Department Care Team Description 07/11/2019 Roofer Apprentice Report Medical Records [address] [place] [address] Carson Angelo MD Social History Tobacco Use [...] on filedocumented in this encounter Care Teams Claim Investigator Relationship Specialty Start Date End Date Claudia Zamora DO PCP - General Internal Medicine 11/26/15 04/22/21 Zuleima Gallagher MD [address] [place], [place] [phone] PCP - General Internal Medicine 04/23/21 documented as of this encounter
--- OUTSIDE RECORDS SUMMARY | 2025-01-31 15:41 | XMS_ITS | Encounter Summary ---
Author Organization [facility] Address [address] [place] [address] Care Team Providers Care Mechanical Laboratory Technician Name Role Phone Claudia Zamora DO Primary Care Pro vider Unavailable Zuleima Gallagher MD Primary Care Provider [phone] Encounter Details Date Type Department Care Team Description 12/14/2020 Orders Only Medical Records [address] [place] [address] Greyson Brock MD [address] [place], [place] [phone] Social History Tobacco Use Types Packs/Day Years [...] have Coronavirus / COVID-19? No / Unsure 12/17/2020 8:14 AM EDT documented as of this encounter Plan of Treatment Not on file documented as of this encounter Procedures Procedure Name Priority Date/Time Associated Diagnosis Comments OUTSIDE PATHOLOGY Routine 12/11/2020 documented in this encounter Results * OUTSIDE PATHOLOGY (12/11/2020) Greyson Brock MD OUTSIDE LAB documented in this encounter Visit Diagnoses Not on filedocumented in this encounter Care Teams Mechanical Laboratory Technician Relationship Specialty Start Date End Date Claudia Zamora DO PCP - General Internal Medicine 11/26/15 04/22/21 Zuleima Gallagher MD [address] [place] [address] PCP - General Internal Medicine 04/23/21 documented as of this encounter
--- OUTSIDE RECORDS SUMMARY | 2025-01-31 15:41 | XMS_ITS | Encounter Summary ---
Author Organization [facility] Address [address] [place] [address] Care Team Providers Care Office Lead Name Role Phone Claudia Zamora DO Primary Care Pro vider Unavailable Zuleima Gallagher MD Primary Care Provider [phone] Reason for Visit * Reason Onset Date Comments Manufacturing Plant Manager Feedback 07/24/2017 PVC- ECG Encounter Details Date Type Department Care Team Description 07/24/2017 Telephone Adult Medicine [address] [address] Annetta Hsieh MD Manufacturing Plant Manager Feedback (PVC- ECG) Social History Tobacco Use Types Packs/Day Years [...] encounter Miscellaneous Notes * Telephone Encounter - Shreya Cuellar - 07/24/2017 9:40 AM EDT Order faxed to [facility] [phone]. Notification letter mailed to patient. Office will contact patient to book appointment. documented in this encounter Plan of Treatment Not on file documented as of this encounter Visit Diagnoses Not on filedocumented in this encounter Care Teams Office Lead Relationship Specialty Start Date End Date Claudia Zamora DO PCP - General Internal Medicine 11/26/15 04/22/21 Zuleima Gallagher MD [address] [place] [address] PCP - General Internal Medicine 04/23/21 documented as of this encounter
--- OUTSIDE RECORDS SUMMARY | 2025-01-31 15:41 | XMS_ITS | Encounter Summary ---
Author Organization [facility] Address [address] [place] [address] Care Team Providers Care Laborer Tan House Name Role Phone Claudia Zamora DO Primary Care Pro vider Unavailable Zuleima Gallagher MD Primary Care Provider [phone] Encounter Details Date Type Department Care Team Description 07/31/2018 Pt. Non Urgent Medic al Question Adult Medicine [address] [address] Claudia Zamora DO Social History Tobacco Use [...] on file documented as of this encounter Progress Notes * Chayo De Los Santos M.A. - 08/02/2018 1:28 PM EDTFrom: Laurel Brooks To: Claudia Mondragon DO Sent: 07/31/2018 4:18 PM EDT Subject: Test Results-Urine Still blood in my urine? What is the staph results mean? documented in this encounter Plan of Treatment Not on file documented as of this encounter Visit Diagnoses Not on filedocumented in this encounter Care Teams Laborer Tan House Relationship Specialty Start Date End Date Claudia Zamora DO PCP - General Internal Medicine 11/26/15 04/22/21 Zuleima Gallagher MD [address] [place] [address] PCP - General Internal Medicine 04/23/21 documented as of this encounter
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
--- OUTSIDE RECORDS SUMMARY | 2025-01-31 15:41 | XMS_ITS | Encounter Summary ---
Author Organization [facility] Address [address] [place] [address] Care Team Providers Care Refrigerator Repair Technician Name Role Phone Claudia Zamora DO Primary Care Pro vider Unavailable Zuleima Gallagher MD Primary Care Provider [phone] Encounter Details Date Type Department Care Team Description 05/07/2018 Brick Unloader Tender Report Medical Records [address] [place] [address] Gasper Gordon MD Social History Tobacco Use Types Packs/Day [...] on filedocumented in this encounter Care Teams Refrigerator Repair Technician Relationship Specialty Start Date End Date Claudia Zamora DO PCP - General Internal Medicine 11/26/15 04/22/21 Zuleima Gallagher MD [address] [place], [place] [phone] PCP - General Internal Medicine 04/23/21 documented as of this encounter
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
--- OUTSIDE RECORDS SUMMARY | 2025-01-31 15:41 | XMS_ITS | Encounter Summary ---
Author Organization [facility] Address [address] [place] [address] Care Team Providers Care Hinging Machine Operator Name Role Phone Claudia Zamora DO Primary Care Pro vider Unavailable Claudia Zamora DO Primary Care Pro vider Unavailable Zuleima Gallagher MD Primary Care Provider [phone] Encounter Details Date Type Department Care Team Description 08/16/2014 SCAN Medical Records [address] [place] [address] Abstract, Provider Social History Tobacco Use Types [...] on filedocumented in this encounter Care Teams Hinging Machine Operator Relationship Specialty Start Date End Date Claudia Zamora DO PCP - General Internal Medicine 11/26/15 04/22/21 Claudia Zamora DO PCP - General 06/01/14 11/25/15 Zuleima Gallagher MD [address] [place] [address] PCP - General Internal Medicine 04/23/21 documented as of this encounter
--- OUTSIDE RECORDS SUMMARY | 2025-01-31 15:41 | XMS_ITS | Encounter Summary ---
Author Organization [facility] Address [address] [place] [address] Care Team Providers Care Slag Production Worker Name Role Phone Claudia Zamora DO Primary Care Pro vider Unavailable Zuleima Gallagher MD Primary Care Provider [phone] Reason for Visit * Reason Onset Date Comments medication problems 10/25/2018 Encounter Details Date Type Department Care Team Description 10/25/2018 Telephone Adult Medicine [address] [phone] Claudia Zamora DO medication problems Social History Tobacco Use Types Packs/Day Years [...] encounter Miscellaneous Notes * Telephone Encounter - Maria Teresa Cabrera PA-C - 10/25/2018 2:36 PM EST ordered * Telephone Encounter - Nidhi Rodriguez M.A. - 10/25/2018 2:09 PM EST Last fill given to derek 09/21/2018 patient will be due next month for script will you fill for patient Jasiel - 09/30/2018 Lab Results Component Value Date NA 142 10/03/2018 K 3.9 10/03/2018 CO2 29 10/03/2018 CL 107 10/03/2018 BUN 21 10/03/2018 CREAT 0.64 10/03/2018 GLU 110 10/03/2018 CA 8.8 10/03/2018 GFR > 60 10/03/2018 * Telephone Encounter - Roxy Peguero - 10/25/2018 1:48 PM EST Who is calling? The patient Name of the medication losartan (COZAAR) 50 MG tablet What is the specific problem or interaction? Patient states Pharmacy told her to contact us for a refill. 90 day script was sent over with 1 refill on 07/19/18. Please advise. If the patient is having a problem with taking the med - how long has the problem been going on? N/A documented in this encounter Plan of Treatment Not on file documented as of this encounter Visit Diagnoses Not on filedocumented in this encounter Care Teams Slag Production Worker Relationship Specialty Start Date End Date Claudia Zamora DO PCP - General Internal Medicine 11/26/15 04/22/21 Zuleima Gallagher MD [address] [place] [address] PCP - General Internal Medicine 04/23/21 documented as of this encounter
--- OUTSIDE RECORDS SUMMARY | 2025-01-31 15:41 | XMS_ITS | Encounter Summary ---
Author Organization [facility] Address [address] [place] [address] Care Team Providers Care Cigar Making Machine Operator Name Role Phone Claudia Zamora DO Primary Care Pro vider Unavailable Zuleima Gallagher MD Primary Care Provider [phone] Reason for Visit * Reason Comments E-prescribe Rx Request Encounter Details Date Type Department Care Team Description 03/23/2019 Refill Adult Medicine [address] [address] Maria Teresa Cabrera PA-C E-prescribe Rx Request Social History Tobacco Use [...] encounter Miscellaneous Notes * Telephone Encounter - Tamika Nuñez M.A. - 03/23/2019 10:01 AM EDT Lab Results Component Value Date NA 141 12/02/2018 K 4.0 12/02/2018 CO2 27 12/02/2018 CL 105 12/02/2018 BUN 22 12/02/2018 CREAT 0.58 12/02/2018 GLU 108 12/02/2018 CA 9.2 12/02/2018 GFR > 60 12/02/2018 * Telephone Encounter - Gavi Jose F - 03/23/2019 9:03 AM EDT Patient would like script to be: E-PRESCRIBED/FAXED TO PHARMACY WHEN WAS THE PATIENT'S LAST APPOINTMENT IN ADULT MEDICINE? 02/21/19 WHEN WAS THE LAST TIME THE PATIENT SAW THEIR PCP? 11/19/18 Does patient have an upcoming appointment? Yes 05/02/19 (THE MEDICATION REQUESTED IS ON THE MED [...] on filedocumented in this encounter Care Teams Cigar Making Machine Operator Relationship Specialty Start Date End Date Claudia Zamora DO PCP - General Internal Medicine 11/26/15 04/22/21 Zuleima Gallagher MD [address] [place] [address] PCP - General Internal Medicine 04/23/21 documented as of this encounter
--- OUTSIDE RECORDS SUMMARY | 2025-01-31 15:41 | XMS_ITS | Encounter Summary ---
Author Organization [facility] Address [address] [place] [address] Care Team Providers Care Motor Express Clerk Name Role Phone Claudia Zamora DO Primary Care Pro vider Unavailable Zuleima Gallagher MD Primary Care Provider [phone] Encounter Details Date Type Department Care Team Description 09/25/2020 Tobacco Packing Machine Operator Report Medical Records [address] [place] [address] Carson Angelo MD Social History Tobacco Use [...] on filedocumented in this encounter Care Teams Motor Express Clerk Relationship Specialty Start Date End Date Claudia Zamora DO PCP - General Internal Medicine 11/26/15 04/22/21 Zuleima Gallagher MD [address] [place] [id number] PCP - General Internal Medicine 04/23/21 documented as of this encounter
--- OUTSIDE RECORDS SUMMARY | 2025-01-31 15:41 | XMS_ITS | Encounter Summary ---
Author Organization [facility] Address [address] [place] [address] Care Team Providers Care Professor Of Public Administration Name Role Phone Claudia Zamora DO Primary Care Pro vider Unavailable Zuleima Gallagher MD Primary Care Provider Encounter Details Date Type Department Care Team Description 09/01/2017 Cook Ice Cream Report Medical Records [address] [place] [address] Louann Rodas FNP Social History Tobacco Use [...] on filedocumented in this encounter Care Teams Professor Of Public Administration Relationship Specialty Start Date End Date Claudia Zamora DO PCP - General Internal Medicine 11/26/15 04/22/21 Zuleima Gallagher MD [address] [place] [id number] PCP - General Internal Medicine 04/23/21 documented as of this encounter
--- OUTSIDE RECORDS SUMMARY | 2025-01-31 15:41 | XMS_ITS | Encounter Summary ---
Author Organization [facility] Address [address] [place] [address] Care Team Providers Care Launching Pad Mechanic Name Role Phone Claudia Zamora DO Primary Care Pro vider Unavailable Zuleima Gallagher MD Primary Care Provider [phone] Encounter Details Date Type Department Care Team Description 09/27/2020 Hospital Medical Records [address] [place] [id number] Carson Angelo MD Social History Tobacco Use [...] on filedocumented in this encounter Care Teams Launching Pad Mechanic Relationship Specialty Start Date End Date Claudia Zamora DO PCP - General Internal Medicine 11/26/15 04/22/21 Zuleima Gallagher MD [address] [place] [id number] PCP - General Internal Medicine 04/23/21 documented as of this encounter
--- OUTSIDE RECORDS SUMMARY | 2025-01-31 15:42 | XMS_ITS | Encounter Summary ---
Author Organization [employer] [facility] Address [address] [place] [address] Care Team Providers Care Transitional Studies Instructor Name Role Phone Zuleima Gallagher MD Primary Care Provider [phone] Encounter Details Date Type Department Care Team Description 06/12/2021 Business Doc Medical Records [address] [place] [id number] Abstract, Provider Social History Tobacco Use Types [...] have Coronavirus / COVID-19? No / Unsure 06/05/2021 11:41 AM EDT documented as of this encounter Plan of Treatment Not on file documented as of this encounter Visit Diagnoses Not on filedocumented in this encounter Care Teams Transitional Studies Instructor Relationship Specialty Start Date End Date Zuleima Gallagher MD [address] [place] [address] [id number] PCP - General Internal Medicine 04/23/21 documented as of this encounter
--- OUTSIDE RECORDS SUMMARY | 2025-01-31 15:42 | XMS_ITS | Encounter Summary ---
Author Organization [facility] Address [address] [place] [address] Care Team Providers Care Oil Spraying Machine Operator Name Role Phone Zuleima Gallagher MD Primary Care Provider [phone] Reason for Visit * Reason Onset Date Comments refill request 08/07/2021 Encounter Details Date Type Department Care Team Description 08/07/2021 Refill Respiratory and Diabetes Medicaid/ACO Pharmacist [address] [place] [address] Michela Mccauley, Pharm.D [address] [place] [address] refill request Social History Tobacco Use Types [...] have Coronavirus / COVID-19? No / Unsure 07/25/2021 9:16 AM EDT documented as of this encounter Miscellaneous Notes * Telephone Encounter - Haritha Steward Quyen - 08/07/2021 2:40 PM EDT Lab Results Component Value Date NA 139 06/05/2021 K 4.4 06/05/2021 CO2 26 06/05/2021 CL 106 06/05/2021 BUN 16 06/05/2021 CREAT 0.78 06/05/2021 GLU 109 06/05/2021 CA 9.6 06/05/2021 GFR > 60 06/05/2021 Lab Results Component Value Date CHOL 150 06/05/2021 LDL 73 06/05/2021 HDL 61 06/05/2021 TRIG 80 06/05/2021 SGOT 22 06/05/2021 SGPT 27 06/05/2021 last appt 07/25/21 * Telephone Encounter - Lluvia Loving.D - 08/07/2021 2:13 PM EDT Please consider refilling the following medications. Lluvia LovingD., BCACP Clinical Pharmacist [facility] [email or web address] Office: Wednesdays [phone], Fridays [phone], (other days) documented in this encounter Plan of Treatment Not on file documented as of this encounter Visit Diagnoses Not on filedocumented in this encounter Care Teams Oil Spraying Machine Operator Relationship Specialty Start Date End Date Zuleima Gallagher MD [address] [place] [address] PCP - General Internal Medicine 04/23/21 documented as of this encounter
--- OUTSIDE RECORDS SUMMARY | 2025-01-31 15:42 | XMS_ITS | Encounter Summary ---
Author Organization [facility] Address [address] [place] [address] Care Team Providers Care Truck Dispatcher Name Role Phone Zuleima Gallagher MD Primary Care Provider [phone] Reason for Visit * Reason Onset Date Comments TEST RESULTS 07/25/2021 Encounter Details Date Type Department Care Team Description 07/25/2021 Telephone Adult Medicine [address] [address] Nicolasa Sullivan PA [address] [place] [address] [phone] TEST RESULTS Social History Tobacco Use Types Packs/Day Years [...] encounter Miscellaneous Notes * Telephone Encounter - Trent Pacheco C.M.A. - 07/26/2021 10:30 AM EDT Called pt, line busy unable to lm. When they return call please send to ext listed in encounter. * Telephone Encounter - Marylin Black - 07/26/2021 10:12 AM EDT Pt returning call * Telephone Encounter - Haritha Diaz M.A. - 07/25/2021 5:08 PM EDT NICHOLAS Kruse 07/25/2021 12:16 PM EDT Please call patient and advise: ?? X-ray shows evidence of degenerative arthritis. ??She can continue with treatment as discussed in the office today. ??Please let me know if she would like to consider physical therapy or physiatry for further evaluation and management. ?? NICHOLAS Kruse Message left for patient to return my call. Ext [phone] See message * Telephone Encounter - Haritha Diaz M.A. - 07/25/2021 5:07 PM EDT Message left for patient to return my call. Ext [phone] Re: result note message documented in this encounter Plan of Treatment Not on file documented as of this encounter Visit Diagnoses Not on filedocumented in this encounter Care Teams Truck Dispatcher Relationship Specialty Start Date End Date Zuleima Gallagher MD [address] [place] [address] PCP - General Internal Medicine 04/23/21 documented as of this encounter
--- OUTSIDE RECORDS SUMMARY | 2025-01-31 15:42 | XMS_ITS | Clinical Summary ---
Author Organization [facility] Address [address] [place] [address] Care Team Providers Care Teletype Telegrapher Name Role Phone Unavailable Primary Care Provider Unavailabl e Social History Tobacco Use Types Packs/Day Years Used Date Smoking Tobacco: Never Assessed Comments Unknown Sex and Gender Information Value Date Recorded Sex Assigned at Not on file Legal Sex Female 4:37 PM EDT Gender Identity Not on file Sexual Orientation [...]
--- OUTSIDE RECORDS SUMMARY | 2025-01-31 15:42 | XMS_ITS | Encounter Summary ---
Author Organization [facility] Address [address] [place] [address] Care Team Providers Care Graduate Student Instructor Name Role Phone Claudia Zamora DO Primary Care Pro vider Unavailable Zuleima Gallagher MD Primary Care Provider [phone] Encounter Details Date Type Department Care Team Description 09/07/2020 Release of Information Medical Records [address] [place] [id number] Abstract, Provider Social History Tobacco Use Types [...] or suspected to have Coronavirus / COVID-19? Unable to assess 09/10/2020 8:14 AM EST documented as of this encounter Nursing Notes * Flavia Gorman - 09/07/2020 11:24 AM EST AUTHORIZATION TO OBTAIN RECORDS MAILED TO [facility]. documented in this encounter Plan of Treatment Not on file documented as of this encounter Visit Diagnoses Not on filedocumented in this encounter Care Teams Graduate Student Instructor Relationship Specialty Start Date End Date Claudia Zamora DO PCP - General Internal Medicine 11/26/15 04/22/21 Zuleima Gallagher MD [address] [place] [id number] PCP - General Internal Medicine 04/23/21 documented as of this encounter
--- OUTSIDE RECORDS SUMMARY | 2025-01-31 15:42 | XMS_ITS | Encounter Summary ---
Author Organization [facility] Address [address] [place] [address] Care Team Providers Care Water Quality Analyst Name Role Phone Unavailable Primary Care Provider Unavailabl e Encounter Details Date Type Department Care Team (Late st Contact Info) Description 07/30/2017 Scanned Document [address] [phone] Provider, Generic Social History Tobacco Use Types [...]
--- OUTSIDE RECORDS SUMMARY | 2025-01-31 15:42 | XMS_ITS | Clinical Summary ---
Author Organization [facility] Address [address] [place] [address] Care Team Providers Care Annealing Furnace Operator Name Role Phone Zuleima Gallagher MD Primary Care Provider [phone] Allergies Active Allergy Reactions Severity Noted Date Comments Codeine Headaches 10/14/2007 Hctz 09/16/2010 hypokalemia Hydralazine Nausea and Vomiting,Dizzy 7 Latex Rash/Dermatitis 10/20/2007 Lisinopril 02/09/2008 Dry cough Medications Medication Sig Dispensed Refills Start Date End Date Status Cholecalciferol (VITAMIN D) 1000 UNITS Cap Take 1 Cap by mouth daily. 30 Cap 0 09/29/2014 Active econazole nitrate 1 % cream 0 03/01/2020 Active famotidine (PEPCID) 20 MG tablet Take 20 mg by mouth 2 times daily. 0 Active Hydrocortisone, Perianal, (PROCTOCARE-HC) 2.5 % Cream Apply 1 Applicator topically 2 times daily as needed (Hemorrhoid pain). 1 Tube 3 08/14/2020 Active Dronedarone HCl 400 MG Tab Take 1 Tab by mouth 2 times daily. 60 Tab 3 10/09/2020 Active Hydrocortisone, Perianal, 2.5 % Cream APPLY ONE APPLICATION BID PRN FOR HEMORRHOID PAIN 0 08/15/2020 Active warfarin (COUMADIN) 5 MG tablet TAKE 1 TABLET BY MOUTH DAILY AT SAME TIME, DO NOT CHANGE DIETARY HABITS; MAY CAUSE HEAVY BLEEDING 90 tablet 0 05/01/2021 Active Simethicone 125 MG CapIndications:Status post laparoscopic cholecystectomy Take 1 capsule by mouth 2 times daily as needed (Excessive gas). 120 capsule 0 05/20/2021 Active triamcinolone (KENALOG) 0.1 % cream Apply to affected area BID x 2 weeks 60 g 0 05/29/2021 Active furosemide (LASIX) 20 MG tablet Take 20 mg by mouth daily. Takes prn edema 0 Active nystatin (MYCOSTATIN) powder Apply to affected area bid prn 15 g 0 06/20/2021 Active metoprolol (LOPRESSOR) 50 MG tablet Take 50 mg by mouth 2 times daily. 1/2 tablet twice daily, takes extra 1/2 tablet daily prn 0 Active amlodipine (NORVASC) 10 MG tablet Take 1 tablet by mouth daily. 90 tablet 1 08/07/2021 Active atorvastatin (LIPITOR) 40 MG tablet Take 1 tablet by mouth daily. 90 tablet 1 08/07/2021 Active losartan (COZAAR) 50 MG tablet Take 1 tablet by mouth daily. 90 tablet 1 08/07/2021 Active Active Problems Problem Noted Date DDD (degenerative disc disease), cervica l 07/25/2021 Overview: With neuroforaminal narrowing A-fib 10/09/2020 Overview: Paroxysmal Diverticulosis 04/13/2020 Presence of pessary 12/25/2019 Rectocele 10/28/2019 Last Assessment & Plan: Return for fitting of new pessary to treat both if desired. 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 Hyperchloremia Hyperlipidemia Resolved Problems Problem Noted Date Resolved Date Atrial flutter 07/23/2017 09/19/2021 Rash 03/28/2008 05/15/2008 Overview: Eczema of the hands Adverse drug effect 02/09/2008 05/15/2008 Overview: Lisinopril caused cogh High cholesterol 01/17/2008 05/02/2019 HTN (hypertension) 01/14/2008 01/12/2012 Prediabetes 05/02/2019 Immunizations Name Administration Dates Next Due COVID-19 (Moderna) PT Reported 02/27/2021,2020 Influenza (> 6 Months) 08/27/2015,08/03/2013 Influenza vaccine high dose age 65 and over 08/28/2020,07/27/2019,06/15/2018,07/23 Pneumoccoccal(Adult) Polysac charide PPSV23 12/19/2009 Pneumococcal Conjugate PCV-13 02/05/2016 TD (STATE SUPPLIED FOR ADULT S AND CHILDREN) 02/05/2016,05/01/2010 Family History Medical History Relation Name Comments Cerebral Vascular Disease Father Diabetes Mother CVD CA Breast Mother's side cousin cousin CA Colon Negative Hx CA Ovarian Negative Hx Cancer of the Pancreas Negative Hx Cancer of the Prostate Negative Hx Uterine Cancer Negative Hx Relation Name Status Comments Father Mother Mother's side cousin Social History Tobacco Use Types Packs/Day Years Used Date Smoking Tobacco: Former Cigarettes 0.5 20 0 [birth year]/02/1958 - 08/10/1973 Smokeless Tobacco: Never Alcohol Use Standard Drinks/Week Comments No 0 (1 standard drink = 0.6 oz pur e alcohol) once a yr Sex Assigned at Date Recorded Not on file Job Start Date Occupation Industry Not on file Not on file Not on file Last Filed Vital Signs Vital Sign Reading Time Taken Comments Blood Pressure 138/72 07/25/2021 9:19 AM EDT Pulse 58 07/25/2021 9:19 AM EDT Temperature 36.5 ??C (97.7 ??F) 07/25/2021 9:19 AM ED T Respiratory Rate 16 07/25/2021 9:19 AM EDT Oxygen Saturation 98% 07/25/2021 9:19 AM EDT Inhaled Oxygen Concentration - - Weight 75.3 kg (166 lb) 07/25/2021 9:19 AM EDT Height 154.9 cm (5' 1 ) 07/25/2021 9:19 AM EDT Body Mass Index 31.37 07/25/2021 9:19 AM EDT Plan of Treatment Health Maintenance Due Date Last Done Comments SHINGLES VACCINE (1 of 2) 1990 COLON CANCER SCREEN WITH STO OL CARD 12/01/2019 12/01/2018, 09/21/2017 MAMMOGRAM 10/20/2021 10/20/2020, 07/07, 07/28/2018, Additional history exists Covid-19 Vaccine (3 - 2022-2 4 season) 2024 02/27/2021, 01/28/2021 BMI CHECK/ADVISE 10/05/2024 06/05/2021, 06/2021, 10/09/2020, Additional history exists INFLUENZA (Season Ended) 2025 020, 07/27/2019, 06/15/2018, Additional history exists CHOLESTEROL SCREENING 06/05/2026 06/05/2021 , 04/09/2020, 11/02/2019, Additional history exists DTAP/TDAP/TD (2 - Td or Tdap) 01/06/2028 (Exception), 02/05/2016, 05/01/2010 BONE DENSITY SCREENING 10/24/2029 10/24/2014, 2009 PNEUMOCOCCAL VACCINE Completed 02/05/2016, 12/20/19 10 Care Teams Annealing Furnace Operator Relationship Specialty Start Date End Date Zuleima Gallagher MD [address] [place] [id number] PCP - General Internal Medicine 04/23/21
== END 2025-01-31 13:36 | disposition home or self-care (01) ==
LOC: HO.HMGCX 13:35
PROVIDERS: PCP Internal Medicine; Visit Provider Internal Medicine
DX: N28.1 Cyst of kidney, acquired (principal)
CPT/HCPCS: 76775

== ENCOUNTER → 2025-01-31 13:37 | Outpatient (BNV) | payer MEDICARE, SELFPAY | PROVIDERS: PCP Internal Medicine; Visit Provider Radiology Diagnostic Radiology | DX: N28.1 Cyst of kidney, acquired (principal) | CPT/HCPCS: 76775 ==

== ENCOUNTER → 2025-03-02 09:11 | Outpatient (REF) | payer MEDICARE, SELFPAY ==
--- OUTSIDE RECORDS SUMMARY | 2025-03-02 09:34 | XMS_ITS | Patient Health Record ---
Author Organization [facility] Address [address] [facility] [address] [place] [address] Care Team Providers Care Nanosystems Engineer Name Role Phone Silvia Reynoso Primary Care Provider ADOLPH Fernández Unavailable [phone] Allergies Allergen (clinical drug ingredient) Drug/Non Drug Allergy documented on EMR Reaction Allergy Type Onset Date Status Codeine Phosphate Unknown Drug Allergy Active hydrochlorothiazide Hydrochlorothiazide Unknown Drug Aller gy Active lisinopril Lisinopril Unknown Drug Allergy Activ e Reason For Referral No Information Medications Medication SIG (Take, Route, Frequency, Duration) Notes Start Date End Date Status Atorvastatin Calcium 40 MG 1 tablet Orally Once a day Active Ciclopirox 0.77% cream. Apply to the effected nail once daily untill resolved Not-Taking Furosemide 20 MG 1 tablet Orally Once a day PRN Active Hydrocortisone 2.5 % 1 application Externally Once a day prn Not-Taking Valsartan 160 MG 1 tablet Orally twice a day Active Famotidine 20 MG 1 tablet at bedtime as needed Orally bid Not-Taking Eliquis 5 MG as directed Orally BID Active Warfarin Sodium 2.5 MG 1 tablet Orally Once a day Not-Taking Diclofenac Sodium 1 % 1gm to the left foot Externally twice daily as needed for 30 days Not-Taking Cholecalciferol 1000 units. Take 1 cap po daily Active amLODIPine Besylate 5 MG 1 tablet Orally Twice a day Active Clotrimazole 1 % 1 application Externally Twice a day Not-Taking Metoprolol Tartrate 25 MG 1 tablet with food Orally Twice a day Active Loratadine 10 MG 1 tablet Orally Once a day to effected area 2 times daily Not-Taking Ciclopirox 0.77 % 1 application Externally Once a day for 90 days Active Amiodarone HCl 200 MG 1 tablet Orally Once a day Active Losartan Potassium 25 MG 2 tablet Orally Once a day Not-Taking Multaq 400 MG 1 tablet with meals Orally Twice a day Not-Taking Problems Problem Type SNOMED Code ICD Code Onset Dates Problem Status W/U Status Risk Notes Problem [id number] Other specified peripheral vascular diseases (I73.89) Active confirmed Problem [id number] 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) Active confirmed Problem Primary hypertension (I10) Active confirmed Vital Signs Heart Rate 68 /min 02/06/2025 Temperature 97.1 degrees Fahrenheit 02/06/2025 Respiratory Rate 12 /min 02/06/2025 Height 61in in 02/06/2025 Weight 163.9 lbs 02/06/2025 BMI 30.97 kg/m2 02/06/2025 Encounters Encounter Location Date Provider Diagnosis [facility] [address] 05/04/2024 ADOLPH COLINDRES Arthritis of left foot M19.072 ; Pain in left toe(s) M79.675 ; Onychomycosis B35.1 ; Pain in right toe(s) M79.674 and Other specified peripheral vascular diseases I73.89 [facility] [address] 08/05/2024 ADOLPH COLINDRES Arthritis of left foot M19.072 ; Pain in left toe(s) M79.675 ; Onychomycosis B35.1 ; Pain in right toe(s) M79.674 ; Other specified peripheral vascular diseases I73.89 and Blister of second toe S90.426A [facility] [address] 11/07/2024 ADOLPH COLINDRES Arthritis of left foot M19.072 ; Pain in left toe(s) M79.675 ; Onychomycosis B35.1 ; Pain in right toe(s) M79.674 ; Other specified peripheral vascular diseases I73.89 and Blister of second toe S90.426A [facility] [address] 02/06/2025 ADOLPH COLINDRES Onychomycosis B35.1 ; Pain in right toe(s) [...] toe joint as needed for arthritic pain. 02/06/2025 Pain in right toe(s) (ICD-10 - M79.674) 02/06/2025 Onychomycosis (ICD-10 - B35.1) I reviewed with [...] flap cutter and curette; pt tolerated well. 02/06/2025 Other specified peripheral vascular diseases (ICD-10 - I73.89) She has increased leg swelling on examination today. I will defer to her PCP care team as they started a work up for this issue. She can wear compression stockings as needed for any lower extremity edema. Avoid high salt intake and elevate the feet periodically throughout the day. 11/07/2024 Pain in left toe(s) (ICD-10 - [...] flap cutter and curette; pt tolerated well. 05/04/2024 [...] cutter and curette; pt tolerated well. 11/07/2024 Onychomycosis (ICD-10 - B35.1) I reviewed [...] flap cutter and curette; pt tolerated well. 08/05/2024 [...] Treatment Next Appt Details Provider Name:ADOLPH COLINDRES, 05/10/2025 08:00:00 AM, [address] [facility] [address], [place], [address], Insurance Providers Payer Name Payer Address Payer Phone Subscriber Number Group Number Insured Name Patient Relationship to Insured Coverage Start Date Coverage End Date [employer] Medicare Adv-[id number] [address] [address] [place] [phone] [id number] March Self - patient is the insured Medical (General) History Medical History History ICD Code atrial flutter hypertension peripheral vascular disease hypercholeremia hypokalemia vitamin D deficiency diverticulosis rectocele uterine prolapse osteopenia hand eczema skilled nursing anticoagulation-on coumadin + COVID 11/2022 COVID vaccinated X 2 (Moderna) and 1 dixon ster (Moderna) Surgical History Surgery Date(Month/Year) endoscopy colonoscopy tubal ligation eye surgery Hospitalization History Reason Date(Month/Year) sepsis 05/2024 vaginal delivery 1971 vaginal delivery 1966 vaginal delivery 1962 vaginal delivery 1960
== END ==
LOC: HO.CARD 09:11
PROVIDERS: Visit Provider Internal Medicine Cardiovascular Disease
DX: I48.0 Paroxysmal atrial fibrillation (principal)
CPT/HCPCS: 93242

== ENCOUNTER → 2025-03-02 09:13 | Outpatient (BNV) | payer MEDICARE, SELFPAY | PROVIDERS: Visit Provider Internal Medicine | DX: I47.10 Supraventricular tachycardia, unspecified (principal); I49.3 Ventricular premature depolarization | CPT/HCPCS: 93244 ==

== ENCOUNTER 2025-03-28 08:02 | Outpatient (AMB) | payer MEDICARE, SELFPAY ==
--- NOTE | 2025-03-28 08:04 | A.OFFVIS_ITS ---
Vital Signs 03/28/25 08:05 Height 5 ft 2 in Weight 163 lb BMI 29.8 Intake Visit Reasons: Pessa Glass Technician Required: No Information Interpreted: non-clinical & clinical Splicing Machine Operator: Splicing Machine Operator Present (Elida Keene ECTOR) Accompanied by: Self / Same As Patient Allergies codeine (CODEINE) Allergy (Intermediate, Verified 03/28/25 08:07) HEADACHES hydrochlorothiazide (HYDROCHLOROTHIAZIDE) Allergy (Intermediate, Verified 03/28/25 08:07) NAUSEA & VOMITING, low K latex (LATEX) Allergy (Intermediate, Verified 03/28/25 08:07) RASH adhesive tape Allergy (Mild, Verified 03/28/25 08:07) Rash lisinopril (LISINOPRIL) Adverse Reaction (Mild, Verified 03/28/25 08:07) COUGH Post menopausal: Yes HPI Comments Details: Presenting for follow-up, the patient felt vaginal pain and discharge took out her pessary a week ago since then, she is having normal vaginal discomfort or discharge. [facility] Medical History Paroxysmal atrial fibrillation Osteoporosis Uterine prolapse Rectocele Hyperlipidemia Sinus bradycardia Atrial fibrillation HTN (hypertension) Surgical History S/P ablation of atrial flutter History of cholecystectomy Hx of tubal ligation Family History Father CVD (cardiovascular disease) Mother CVD (cardiovascular disease) Diabetes Other Substance use disorder Social History Household Members: Children Housing: House Do you presently have visiting nurse or other home services: No Alcohol intake: unknown Patient Tobacco Use Status: Former Tobacco user Years Smoked: 12 +/- e-Cigarette/Vaping Use: Never Used Second Hand Smoke Exposure: No service: No Current occupational status: retired 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 Current occupational exposures/hazards: No Cognitive needs: No Hearing needs: No Vision needs: Yes Review of Systems Const All systems reviewed & are unremarkable except as noted in HPI and below Physical Exam Vital Signs: BMI result Body Mass Index 29.8 General: Yes no CVA tenderness External Female Exam: normal external appearance and normal appearance of the urethra Speculum Exam - Vagina: abnormal appearance of the vagina (Left small vaginal wall abrasion), no lesions and no masses Back/Spine/Pelvis Back: no CVA tenderness Assessment & Plan Assessment & Plan (1) Vaginal abrasion: Comment: Secondary to pessary Code(s): S30.814A - Abrasion of vagina and vulva, initial encounter Category: Medical Plan: Discussed with the patient the finding on pelvic exam showing left small vaginal abrasion, recommended to keep the pessary out and follow-up within few weeks for reinsertion. Instructions given the patient to call in case of vaginal pain, fever, discharge or bleeding or any other concerns. All questions answered, the patient verbalized understanding Coding Level of Care Code Est Pt Level 3 (65791) Diagnoses Vaginal abrasion S30.814A
[2025-03-28 08:05] VITALS: BMI 29.8
== END 2025-03-28 08:23 | disposition home or self-care (01) ==
LOC: HO.HWS 08:02
PROVIDERS: Visit Provider Obstetrics & Gynecology
DX: S30.814A Abrasion of vagina and vulva, initial encounter (principal)
CPT/HCPCS: 99213

== ENCOUNTER → 2025-03-28 08:02 | Outpatient (BNVA) | payer MEDICARE, SELFPAY | PROVIDERS: Visit Provider Obstetrics & Gynecology | DX: S30.814D Abrasion of vagina and vulva, subsequent encounter (principal) | CPT/HCPCS: 99212 ==

== ENCOUNTER 2025-04-03 08:54 | Outpatient (AMB) | payer MEDICARE, SELFPAY ==
--- NOTE | 2025-04-03 09:00 | A.OFFPC_ITS ---
Vital Signs 04/03/25 09:06 Height 5 ft 2 in Weight 168 lb BMI 30.7 BP 130/68 Blood Pressure Location Lt brachial Position Sitting Respiration 20 Pulse 56 Pulse Source Pulse Oximeter Temp 98.2 F Temp Source Oral Pulse Oximetry (%) 96 Oxygen Delivery Method Room Air Intake Visit Reasons: 6m follow up Intake Note: Pt is here today for 6 months follow up visit. Allergies codeine (CODEINE) Allergy (Intermediate, Verified 04/03/25 09:08) HEADACHES hydrochlorothiazide (HYDROCHLOROTHIAZIDE) Allergy (Intermediate, Verified 04/03/25 09:08) NAUSEA & VOMITING, low K latex (LATEX) Allergy (Intermediate, Verified 04/03/25 09:08) RASH adhesive tape Allergy (Mild, Verified 04/03/25 09:08) Rash lisinopril (LISINOPRIL) Adverse Reaction (Mild, Verified 04/03/25 09:08) COUGH Medication List - Last Reconciled 04/03/25 by Silvia Reynoso MD amiodarone 200 mg PO DAILY amlodipine 5 mg PO BID apixaban (Eliquis) 5 mg PO BID atorvastatin 40 mg PO DAILY cholecalciferol (vitamin D3) 25 mcg PO BEDTIME furosemide 20 mg PO DAILY metoprolol tartrate 12.5 mg (1/2 x 25 mg) PO BID nystatin (Nystop) 1 appl topical BID PRN oxyquinoline-sod.lauryl sulfat 0.025-0.01 % (Trimo-Agustin Jelly) 1 ea vaginal .2-3 x/wk sertraline 25 mg PO DAILY triamcinolone acetonide 0.1% 1 appl topical BID PRN valsartan 160 mg PO BID Tobacco use date assessed: 04/03/25 Fall risk assessment: No Falls in past year Last assessed Fall Risk: 04/03/25 Dental Screening Dental Screen Date: 04/03/25 Did you have a dental visit in the last 12 months?: Yes Did you have a dental problem in the last 6 months where you did not have access to dental care?: No Was dental information given to patient?: Patient has dentist HPI 6m follow up HPI Details Patient presents for the follow-up on hypertension hyperlipidemia diet controlled diabetes history of AFib anticoagulated on Eliquis. Patient has not been physically active. She reports worsening lower extremities swelling in the hot weather. Patient denies palpitations chest pain PND orthopnea dyspnea on exertion. REPLACED BY [facility] Medical History (Updated 04/03/25 @ 09:36 by Silvia Reynoso MD) Edema Edema Paroxysmal atrial fibrillation Osteoporosis Uterine prolapse Rectocele Hyperlipidemia Sinus bradycardia Atrial fibrillation HTN (hypertension) Surgical History S/P ablation of atrial flutter History of cholecystectomy Hx of tubal ligation Family History Father CVD (cardiovascular disease) Mother CVD (cardiovascular disease) Diabetes Other Substance use disorder Social History Household Members: Children Housing: House Do you presently have visiting nurse or other home services: No Alcohol intake: unknown Patient Tobacco Use Status: Former Tobacco user Years Smoked: 12 +/- e-Cigarette/Vaping Use: Never Used Second Hand Smoke Exposure: No service: No Current occupational status: retired 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 Current occupational exposures/hazards: No Cognitive needs: No Hearing needs: No Vision needs: Yes Questionnaire Thrive Questionnaire Date Thrive assessed: 11/23/24 I am a: Patient What is your living situation today?: I have a steady place to live Within the past 12 months, did the food you bought not last and you didn't have the money to get more?: Never true Within the past 12 months, did you worry whether your food would run out before you got money to buy more?: Never true Do you have trouble paying for medicines?: No Do you have trouble getting transportation to medical appointments?: No Do you have trouble paying your heating and electricity bill?: No Do you have trouble taking care of your child, family member or friend?: No Do you have trouble with day-to-day activities such as bathing, preparing meals, shopping, managing finances, etc.?: No Are you currently unemployed and looking for a job?: No Are you interested in more education?: No Please select the resources that you would like help with: None Currently or been in a relationship where the following occur: No concerns reported THRIVE Score: 0 AUDIT C Alcohol Use Questionnaire (AUDIT-C) 1. How often do you have a drink containing alcohol?: Never 3. How often do you have six or more drinks on one occasion?: Never Total Score: 0 RENETTA-7 AMB Questionnaire RENETTA-7 Date RENETTA - 7 assessed: 11/23/24 Source: Developed by Drs. Lior Francois, Dee Arango, Jhoan Coronel and colleagues, with an educational simone from [employer]. Review of Systems Const All systems reviewed & are unremarkable except as noted in HPI and below Eyes Reports no additional complaints ENT Reports no additional complaints Card Reports no additional complaints Resp Reports no additional complaints GI Reports no additional complaints Reports no additional complaints Physical exam (Primary Care) Vital Signs: Last Vital Signs Temp 98.2 F 04/03/25 09:06 Pulse 56 04/03/25 09:06 Resp 20 04/03/25 09:06 BP 130/68 04/03/25 09:06 Pulse Ox 96 04/03/25 09:06 Oxygen Delivery Method Room Air 04/03/25 09:06 BMI result Body Mass Index 30.7 Tobacco/Smoking Status: Tobacco use Status Tobacco use date assessed 04/03/25 04/03/25 09:10 Patient Tobacco Use Status Former Tobacco user 04/03/25 09:01 Tobacco use type 05/25/24 10:57 e-Cigarette/Vaping Use Never Used 04/03/25 09:01 Thrive Assessment: Date of Thrive Assessment Date Thrive assessed 11/23/24 04/03/25 09:01 Currently or been in a relationship where the following occur: No concerns reported Const General: no acute distress Neck Neck: Yes supple Resp Effort & Inspection: normal respiratory effort Auscultation: clear to auscultation bilaterally Cardio Rhythm: regular rhythm Heart sounds: S1 normal heart sound present and S2 normal heart sound present GI Inspection: Yes normal to inspection Palpation (GI): Soft to palpation Extrem Other: 2+ pitting edema bilaterally Coding Level of Care Code Est Pt Level 4 (49058) Complex EM visit Add On G2211 Diagnoses Edema R60.9 HTN (hypertension) I10 Hypertension type: unspecified Paroxysmal atrial fibrillation I48.0 Hyperlipidemia E78.5 Assessment & Plan Assessment & Plan (1) Edema: Comment: Secondary to amlodipine Code(s): R60.9 - Edema, unspecified Category: Medical Plan: Check BNP, increase furosemide to 40 mg a day check blood work in 1 week follow- up in 1 month (2) HTN (hypertension): Code(s): I10 - Essential (primary) hypertension Category: Medical Qualifiers: Hypertension type: unspecified Qualified Code(s): I10 - Essential (primary) hypertension Plan: Continue current medications (3) Paroxysmal atrial fibrillation: Code(s): I48.0 - Paroxysmal atrial fibrillation Category: Medical Plan: Continue Eliquis and amiodarone for rate controlled, follow-up with Cardiology (4) Hyperlipidemia: Code(s): E78.5 - Hyperlipidemia, unspecified Category: Medical Plan: Continue statin Orders: Orders B Type Natriuretic Peptide 04/10/25 R60.9 - Edema, unspecified Medications: Changed From furosemide 20 mg PO DAILY 90 tabs 3RF edema To furosemide 20 mg PO BID 180 tabs 3RF edema
[2025-04-03 09:06] VITALS: BP 130/68; PULSE 56; RESP 20; TEMP 36.8; O2SAT 96; BMI 30.7
--- OUTSIDE RECORDS SUMMARY | 2025-04-03 09:09 | XMS_ITS | Patient Health Record ---
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) Active confirmed Problem Primary hypertension (I10) Active confirmed Vital Signs Heart Rate 68 /min 02/06/2025 Temperature 97.1 degrees Fahrenheit 02/06/2025 Respiratory Rate 12 /min 02/06/2025 Height 61in in 02/06/2025 Weight 163.9 lbs 02/06/2025 BMI 30.97 kg/m2 02/06/2025 Encounters Encounter Location Date Provider Diagnosis [facility] [address] 05/04/2024 ADOLPH COLINDRES Arthritis of left foot M19.072 ; Pain in left toe(s) M79.675 ; Onychomycosis B35.1 ; Pain in right toe(s) M79.674 and Other specified peripheral vascular diseases I73.89 [facility] [address] 08/05/2024 ADOLPH COLINDRES Arthritis of left foot M19.072 ; Pain in left toe(s) M79.675 ; Onychomycosis B35.1 ; Pain in right toe(s) M79.674 ; Other specified peripheral vascular diseases I73.89 and Blister of second toe S90.426A [facility] [address] 11/07/2024 ADOLPH COLINDRES Arthritis of left foot M19.072 ; Pain in left toe(s) M79.675 ; Onychomycosis B35.1 ; Pain in right toe(s) M79.674 ; Other specified peripheral vascular diseases I73.89 and Blister of second toe S90.426A [facility] [address] 02/06/2025 ADOLPH COLINDRES Onychomycosis B35.1 ; [...] debrided all ten toenails with a hot knife foxing cutter and curette; pt tolerated well. 02/06/2025 [...] debrided all ten toenails with a hot knife foxing cutter and curette; pt tolerated well. 05/04/2024 [...] debrided all ten toenails with a hot knife foxing cutter and curette; pt tolerated well. 11/07/2024 [...] debrided all ten toenails with a hot knife foxing cutter and curette; pt tolerated well. 08/05/2024 [...] Name:ADOLPH COLINDRES, 05/10/2025 08:00:00 AM, [address] [facility] [address], [place], [address], Insurance Providers Payer Name Payer Address Payer Phone Subscriber Number Group Number Insured Name Patient Relationship to Insured Coverage Start Date Coverage End Date [employer] Medicare [id number] [address] [address] [place] [address] [id number] March Self - patient is the insured Medical (General) History Medical History History ICD Code atrial flutter hypertension peripheral vascular disease hypercholeremia hypokalemia vitamin D deficiency diverticulosis rectocele uterine prolapse osteopenia 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
== END 2025-04-03 09:24 | disposition home or self-care (01) ==
LOC: HO.HMCC 08:55
PROVIDERS: PCP Internal Medicine; Visit Provider Internal Medicine
DX: R60.9 Edema, unspecified (principal); I10 Essential (primary) hypertension; I48.0 Paroxysmal atrial fibrillation; E78.5 Hyperlipidemia, unspecified

== ENCOUNTER → 2025-04-03 08:54 | Outpatient (BNVA) | payer MEDICARE, SELFPAY | PROVIDERS: PCP Internal Medicine; Visit Provider Internal Medicine | DX: R60.9 Edema, unspecified (principal); I10 Essential (primary) hypertension; I48.0 Paroxysmal atrial fibrillation; E78.5 Hyperlipidemia, unspecified | CPT/HCPCS: 99212 ==

== ENCOUNTER 2025-04-11 06:22 | Outpatient (REF) | payer MEDICARE, SELFPAY ==
--- OUTSIDE RECORDS SUMMARY | 2025-04-11 06:24 | XMS_ITS | Encounter Summary ---
Author Organization [facility] Address [address] [place] [address] Care Team Providers Care Fixture Designer Name Role Phone Claudia Zamora DO Primary Care Pro vider Unavailable Zuleima Gallagher MD Primary Care Provider Encounter Details Date Type Department Care Team Description 07/06/2018 Service Department Manager Report Medical Records [address] [place] [address] Carson Angelo MD Social History Tobacco Use [...] on filedocumented in this encounter Care Teams Fixture Designer Relationship Specialty Start Date End Date Claudia Zamora DO PCP - General Internal Medicine 11/26/15 04/22/21 Zuleima Gallagher MD [address] [place], [place] [id number] PCP - General Internal Medicine 04/23/21 documented as of this encounter
--- OUTSIDE RECORDS SUMMARY | 2025-04-11 06:24 | XMS_ITS | Encounter Summary ---
Author Organization [facility] Address [address] [place] [address] Care Team Providers Care Government Program Manager Name Role Phone Unavailable Primary Care Provider Unavailabl e Encounter Details Date Type Department Care Team (Late st Contact Info) Description 07/30/2017 Scanned Document [address] [id number] Provider, Generic Social History Tobacco Use Types [...]
--- OUTSIDE RECORDS SUMMARY | 2025-04-11 06:25 | XMS_ITS | Patient Health Record ---
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) Active confirmed Problem Primary hypertension (I10) Active confirmed Vital Signs Heart Rate 68 /min 02/06/2025 Temperature 97.1 degrees Fahrenheit 02/06/2025 Respiratory Rate 12 /min 02/06/2025 Height 61in in 02/06/2025 Weight 163.9 lbs 02/06/2025 BMI 30.97 kg/m2 02/06/2025 Encounters Encounter Location Date Provider Diagnosis [facility] [address] 05/04/2024 ADOLPH COLINDRES Arthritis of left foot M19.072 ; Pain in left toe(s) M79.675 ; Onychomycosis B35.1 ; Pain in right toe(s) M79.674 and Other specified peripheral vascular diseases I73.89 [facility] [address] 08/05/2024 ADOLPH COLINDRES Arthritis of left foot M19.072 ; Pain in left toe(s) M79.675 ; Onychomycosis B35.1 ; Pain in right toe(s) M79.674 ; Other specified peripheral vascular diseases I73.89 and Blister of second toe S90.426A [facility] [address] 11/07/2024 ADOLPH COLINDRES Arthritis of left foot M19.072 ; Pain in left toe(s) M79.675 ; Onychomycosis B35.1 ; Pain in right toe(s) M79.674 ; Other specified peripheral vascular diseases I73.89 and Blister of second toe S90.426A [facility] [address] 02/06/2025 ADOLPH COLINDRES Onychomycosis B35.1 ; [...] aseptically debrided all ten toenails with a wire cutter and curette; pt tolerated well. 02/06/2025 [...] aseptically debrided all ten toenails with a wire cutter and curette; pt tolerated well. 05/04/2024 [...] aseptically debrided all ten toenails with a wire cutter and curette; pt tolerated well. 11/07/2024 [...] aseptically debrided all ten toenails with a wire cutter and curette; pt tolerated well. 08/05/2024 [...] Name:ADOLPH COLINDRES, 05/10/2025 08:00:00 AM, [address] [facility] [address], [place], [address], Insurance Providers Payer Name Payer Address Payer Phone Subscriber Number Group Number Insured Name Patient Relationship to Insured Coverage Start Date Coverage End Date [employer] Medicare [id number] [address] [address] [place] [address] [id number] March Self - patient is the [...]
[2025-04-11 09:43] LABS: B Type Natriuretic Peptide 75 pg/mL (<100)
[2025-04-11 11:03] LABS: MANUAL DIFF FLAG NO
[2025-04-11 11:07] LABS: Hematocrit 41.6 % (37.0-47.0); Hemoglobin 13.8 g/dl (12.0-16.0); Imm Gran Abs Auto 0.01 X10*3/uL (0.00-0.03); Imm Gran Pct Auto 0.2 % (0.0-0.4); Lymphocytes Absolute Auto 1.9 X10*3/uL (1.2-4.9); Mean Corpuscular HGB Conc 33.2 g/dl (31.0-35.0); Mean Corpuscular Hemoglobin 29.1 pg (27.0-33.0); Mean Corpuscular Volume 87.8 fL (80.0-98.0); NRBC Abs Auto 0.000 X10*3/uL (0.0-0.012); NRBC Pct Auto 0.0 /100WBC (0.0-0.2); Platelet Count 189 X10*3/uL (160-400); Red Blood Count 4.74 X10*6/uL (4.20-5.50); White Blood Count 4.9 X10*3/uL (4.8-10.8)
[2025-04-11 11:39] LABS: Hemoglobin A1C 140.9460 umol/L; Total Hemoglobin (HGBA1C) 3687.9575 umol/L
[2025-04-11 11:42] LABS: Alanine Aminotransferase 20 U/L (0-31); Albumin Level 4.0 g/dL (3.5-5.0); Alkaline Phosphatase 86 U/L (39-117); Anion Gap 10 (12-20); Aspartate Amino Transferase 29 U/L (5-31); Blood Urea Nitrogen 20 mg/dL (9-16); Calcium 9.1 mg/dL (8.4-10.2); Carbon Dioxide 26 mmol/L (22-29); Chloride 108 mmol/L (96-108); Cholesterol 213 mg/dL (<200); Estimated Glomerular Filt Rate 59; HDL Cholesterol 51 mg/dL (>40); Potassium 3.8 mmol/L (3.3-5.1); Sodium 140 mmol/L (135-145); Total Protein 6.4 g/dL (6.5-8.0); Triglycerides 123 mg/dL (<150)
== END 2025-04-11 06:23 | disposition home or self-care (01) ==
LOC: HO.HMGCLDS 06:22
PROVIDERS: PCP Internal Medicine; Visit Provider Internal Medicine
DX: Z00.00 Encounter for general adult medical examination without abnormal findings (principal); R73.9 Hyperglycemia, unspecified; E78.5 Hyperlipidemia, unspecified; I10 Essential (primary) hypertension; R60.9 Edema, unspecified
CPT/HCPCS: 36415; 80053; 80061; 83036; 83880; 84443; 85025

== ENCOUNTER 2025-04-20 15:03 | Outpatient (AMB) | payer MEDICARE, SELFPAY ==
[2025-04-20 15:05] VITALS: BMI 30.7
--- NOTE | 2025-04-20 15:05 | MHC.OFFVIS ---
Vital Signs 04/20/25 15:05 Height 5 ft 2 in Weight 168 lb BMI 30.7 Intake Visit Reasons: pessary Director Of Strategic Programs Required: No Information Interpreted: non-clinical & clinical Axle And Frame Mechanic: Axle And Frame Mechanic Present (Elida Keene ECTOR) Accompanied by: Self / Same As Patient Allergies codeine (CODEINE) Allergy (Intermediate, Verified 04/20/25 15:06) HEADACHES hydrochlorothiazide (HYDROCHLOROTHIAZIDE) Allergy (Intermediate, Verified 04/20/25 15:06) NAUSEA & VOMITING, low K latex (LATEX) Allergy (Intermediate, Verified 04/20/25 15:06) RASH adhesive tape Allergy (Mild, Verified 04/20/25 15:06) Rash lisinopril (LISINOPRIL) Adverse Reaction (Mild, Verified 04/20/25 15:06) COUGH Post menopausal: Yes HPI Comments Details: Presenting would like the pessary placed the patient is very uncomfortable from the vaginal bulge. The patient was diagnosed with vaginal abrasion. No vaginal discharge or bleeding or any other concerns [facility] Medical History (Updated 04/20/25 @ 15:16 by Morteza Thomson MD) Edema Edema Paroxysmal atrial fibrillation Osteoporosis Uterine prolapse Rectocele Hyperlipidemia Sinus bradycardia Atrial fibrillation HTN (hypertension) Surgical History S/P ablation of atrial flutter History of cholecystectomy Hx of tubal ligation Family History Father CVD (cardiovascular disease) Mother CVD (cardiovascular disease) Diabetes Other Substance use disorder Social History Household Members: Children Housing: House Do you presently have visiting nurse or other home services: No Alcohol intake: unknown Patient Tobacco Use Status: Former Tobacco user Years Smoked: 12 +/- e-Cigarette/Vaping Use: Never Used Second Hand Smoke Exposure: No service: No Current occupational status: retired 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 Current occupational exposures/hazards: No Cognitive needs: No Hearing needs: No Vision needs: Yes Review of Systems Const All systems reviewed & are unremarkable except as noted in HPI and below Physical Exam Vital Signs: BMI result Body Mass Index 30.7 Speculum Exam - Vagina: normal appearance of the vagina, no lesions, no masses and other (No evidence of abrasion) Bimanual Exam- Adnexa, other: normal adnexae Assessment & Plan Assessment & Plan (1) Vaginal abrasion: Comment: Healed Code(s): S30.814A - Abrasion of vagina and vulva, initial encounter Category: Medical Plan: Discussed with the patient the finding on vaginal exam, no evidence of abrasion (2) Encounter for fitting and adjustment of pessary: Code(s): Z46.89 - Encounter for fitting and adjustment of other specified devices Category: Medical Plan: Ring pessary #3 inserted in the vagina. Afterwards the pt did not feel it in, and did not have any pain or pressure. After Valsalva x 3 ( lying down, sitting and standing up ) pessary stayed in. instructions given the patient to schedule a three-month follow-up appointment.. Meanwhile the patient was instructed to call if vaginal pain, pressure or discharge occurs. Vaginal Trimosan Gel is to be used x2-3 x/week. The patient verbalized understanding and all questions were answered. Coding Level of Care Code Est Pt Level 3 (48472) Diagnoses Vaginal abrasion S30.814A Encounter for fitting and adjustment of pessary Z46.89
--- OUTSIDE RECORDS SUMMARY | 2025-04-20 15:48 | XMS_ITS | Encounter Summary ---
Author Organization [facility] Address [address] [place] [address] Care Team Providers Care Fumigator And Sterilizer Name Role Phone Unavailable Primary Care Provider Unavailabl e Encounter Details Date Type Department Care Team (Late st Contact Info) Description 07/30/2017 Scanned Document [address] [phone] Provider, Generic Social History Tobacco Use Types [...]
== END 2025-04-20 15:15 | disposition home or self-care (01) ==
LOC: HO.HWS 15:03
PROVIDERS: PCP Internal Medicine; Visit Provider Obstetrics & Gynecology
DX: S30.814A Abrasion of vagina and vulva, initial encounter (principal); Z46.89 Encounter for fitting and adjustment of other specified devices
CPT/HCPCS: 57160; 99213

== ENCOUNTER → 2025-04-20 15:03 | Outpatient (BNVA) | payer MEDICARE, SELFPAY | PROVIDERS: PCP Internal Medicine; Visit Provider Obstetrics & Gynecology | DX: Z46.89 Encounter for fitting and adjustment of other specified devices (principal); S30.814D Abrasion of vagina and vulva, subsequent encounter | CPT/HCPCS: 57160; 99212 ==

== ENCOUNTER 2025-05-02 09:56 | Outpatient (REF) | payer MEDICARE, SELFPAY ==
--- NOTE | ~2025-05-02 | XR_ITS ---
EXAMINATION: XR ABDOMEN KUB CLINICAL INDICATION: K59.00 - Constipation, unspecified COMPARISON: CT May 07, 2024 TECHNIQUE: AP view of the abdomen. FINDINGS: There are clips in right upper quadrant from prior cholecystectomy. There is scattered small and large bowel gas without dilation of small bowel. There are calcifications in the pelvic region consistent with calcified uterine leiomyomas and phleboliths. Moderate stool is present in the cecum and descending colon XR/XR KUB IMPRESSION: There is moderate stool in the cecum and descending colon. Electronically signed by: Yousif Sanders MD 05/02/2025 12:27 PM EDT
== END 2025-05-02 09:57 | disposition home or self-care (01) ==
LOC: HO.HMGCX 09:56
PROVIDERS: PCP Internal Medicine; Visit Provider Physician Assistant
DX: K59.00 Constipation, unspecified (principal); M54.9 Dorsalgia, unspecified
CPT/HCPCS: 74018; 99212

== ENCOUNTER 2025-05-02 09:56 | Outpatient (AMB) | payer MEDICARE, SELFPAY ==
--- OUTSIDE RECORDS SUMMARY | 2025-05-02 10:34 | XMS_ITS | Patient Health Record ---
Author Organization [facility] Address [address] [facility] [address] [place] [address] Care Team Providers Care Replenishment Associate Name Role Phone Silvia Reynoso Primary Care Provider ADOLPH Fernández Unavailable [phone] Allergies Allergen (clinical drug ingredient) Drug/Non Drug [...] the left foot Externally twice daily as needed; Duration: 30 days Not-Taking Cholecalciferol 1000 units. Take [...] 0.77 % 1 application Externally Once a day; Duration: 90 days Active Amiodarone HCl 200 MG 1 tablet Orally Once a day Active Losartan Potassium 25 MG 2 tablet Orally Once a day Not-Taking Multaq 400 MG 1 tablet with meals Orally Twice a day Not-Taking Problems Problem Type SNOMED Code ICD Code Onset Dates Problem Status W/U Status Risk Notes Problem Peripheral vascular disease (459688283) Other specified peripheral vascular diseases (I73.89) Active confirmed Problem Arthritis of left foot ([id number] 09) 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) Active confirmed Problem Primary hypertension (I10) Active confirmed Vital Signs Heart Rate 68 /min 02/06/2025 Temperature 97.1 degrees Fahrenheit 02/06/2025 Respiratory Rate 12 /min 02/06/2025 Height 61in in 02/06/2025 Weight 163.9 lbs 02/06/2025 BMI 30.97 kg/m2 02/06/2025 Encounters Encounter Location Date Provider Diagnosis [facility] [address] 05/04/2024 ADOLPH COLINDRES Arthritis of left foot M19.072 ; Pain in left toe(s) M79.675 ; Onychomycosis B35.1 ; Pain in right toe(s) M79.674 and Other specified peripheral vascular diseases I73.89 [facility] [address] 08/05/2024 ADOLPH COLINDRES Arthritis of left foot M19.072 ; Pain in left toe(s) M79.675 ; Onychomycosis B35.1 ; Pain in right toe(s) M79.674 ; Other specified peripheral vascular diseases I73.89 and Blister of second toe S90.426A [facility] [address] 11/07/2024 ADOLPH COLINDRES Arthritis of left foot M19.072 ; Pain in left toe(s) M79.675 ; Onychomycosis B35.1 ; Pain in right toe(s) M79.674 ; Other specified peripheral vascular diseases I73.89 and Blister of second toe S90.426A [facility] [address] 02/06/2025 ADOLPH COLINDRES Onychomycosis B35.1 ; [...] aseptically debrided all ten toenails with a pickle cutter and curette; pt tolerated well. 02/06/2025 [...] aseptically debrided all ten toenails with a pickle cutter and curette; pt tolerated well. 05/04/2024 [...] aseptically debrided all ten toenails with a pickle cutter and curette; pt tolerated well. 11/07/2024 [...] aseptically debrided all ten toenails with a pickle cutter and curette; pt tolerated well. 08/05/2024 [...] Of Treatment Next Appt Details Provider Name:ADOLPH DURAN JENS, 05/10/2025 08:00:00 AM, [address] [address], [place], [address], Insurance Providers Payer Name Payer Address Payer Phone Subscriber Number Group Number Insured Name Patient Relationship to Insured Coverage Start Date Coverage End Date [employer] Medicare [id number] [address] [address] [place] [address] [id number] March Self - patient is the insured Medical (General) History Medical History History ICD Code atrial flutter hypertension peripheral vascular disease hypercholeremia hypokalemia vitamin D deficiency diverticulosis rectocele uterine prolapse osteopenia hand eczema prison anticoagulation-on coumadin + COVID 11/2022 COVID vaccinated X 2 (Moderna) and 1 dixon ster (Moderna) Surgical History Surgery Date(Month/Year) endoscopy colonoscopy tubal ligation eye surgery Hospitalization History Reason Date(Month/Year) sepsis 05/2024 vaginal delivery 1971 vaginal delivery 1966 vaginal delivery 1962 vaginal delivery 1960
--- OUTSIDE RECORDS SUMMARY | 2025-05-02 10:34 | XMS_ITS | Encounter Summary ---
Author Organization [facility] Address [address] [place] [address] Care Team Providers Care Field Hand Name Role Phone Unavailable Primary Care Provider Unavailabl e Encounter Details Date Type Department Care Team (Late st Contact Info) Description 07/30/2017 Scanned Document [address] [phone] Provider, Generic Social History Tobacco Use Types [...]
--- NOTE | 2025-05-02 11:31 | AM.OFFWIN_ITS ---
Intake Vital Signs 05/02/25 11:32 Height 5 ft 2 in Weight 167 lb 4 oz BMI 30.6 BP 148/62 H Blood Pressure Location Lt brachial Position Sitting Pulse 62 Pulse Source Pulse Oximeter Temp 98.2 F Temp Source Oral Pulse Oximetry (%) 95 Oxygen Delivery Method Room Air Intake Visit Reasons: EP Pain in lower back, bowel problems Patient Tobacco Use Status: Former Tobacco user Boomswing Operator Required: No Is last menstrual period known: No Post menopausal: Yes Patient : No Allergies codeine (CODEINE) Allergy (Intermediate, Verified 05/02/25 11:35) HEADACHES hydrochlorothiazide (HYDROCHLOROTHIAZIDE) Allergy (Intermediate, Verified 05/02/25 11:35) NAUSEA & VOMITING, low K latex (LATEX) Allergy (Intermediate, Verified 05/02/25 11:35) RASH adhesive tape Allergy (Mild, Verified 05/02/25 11:35) Rash lisinopril (LISINOPRIL) Adverse Reaction (Mild, Verified 05/02/25 11:35) COUGH Do you need a note to return to daycare/school/sports/work: Yes HPI HPI Comments History of Present Illness Details History - The patient is an 84-year-old female p resenting with constipation and back pain. - Constipation is linked to back pain re lief post-bowel movement, with difficulty in passing stool despite it not being hard. - Occasional nausea during bowel movemen ts reported. - Current management includes Metamucil and prunes, previously effective. - Denies bladder or bowel incontinence, urinary changes, hematuria, or fever. - Back pain is intermittent, located shmuel r the waistline, without radiation to her buttocks or legs. - No recent trauma or use of analgesics for back pain. Physical Exam General: Cooperative, healthy appearing, comfortable, no acute distress and well developed Orientation: Patient oriented x3 Limitations: No limitations Head: Normal to inspection Ears: Hearing grossly normal bilaterally Nose: Normal External nose present Face and sinus: Normal facial exam Mouth: normal, moist oral mucosa Eyes: Appearance normal, both eyes and all related structures Neck: Normal visual inspection and Yes full ROM Respiratory: Normal respiratory effort and able to speak in complete sentences. Skin: no rashes or lesions noted Neuro: Patient oriented x3 Back/spine: no TTP cervical, thoracic or lumbar spine, no ttp on remainder of back Extremities: moving all extremities normally [facility] Medical History Edema Edema Paroxysmal atrial fibrillation Osteoporosis Uterine prolapse Rectocele Hyperlipidemia Sinus bradycardia Atrial fibrillation HTN (hypertension) Surgical History S/P ablation of atrial flutter History of cholecystectomy Hx of tubal ligation Family History Father CVD (cardiovascular disease) Mother CVD (cardiovascular disease) Diabetes Other Substance use disorder Social History Household Members: Children Housing: House Do you presently have visiting nurse or other home services: No Alcohol intake: unknown Patient Tobacco Use Status: Former Tobacco user Years Smoked: 12 +/- e-Cigarette/Vaping Use: Never Used Second Hand Smoke Exposure: No Patient : No service: No 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 occupational status: 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 Current occupational exposures/hazards: No Cognitive needs: No Hearing needs: No Vision needs: Yes Review of Systems Const All systems reviewed & are unremarkable except as noted in HPI and below Physical Exam Vital Signs: Last Vital Signs Temp 98.2 F 05/02/25 11:32 Pulse 62 05/02/25 11:32 BP 148/62 H 05/02/25 11:32 Pulse Ox 95 05/02/25 11:32 Oxygen Delivery Method Room Air 05/02/25 11:32 BMI result Body Mass Index 30.6 Assessment & Plan Assessment & Plan (1) Constipation: Code(s): K59.00 - Constipation, unspecified Qualifiers: Constipation type: unspecified constipation type Qualified Code(s): K59.00 - Constipation, unspecified Plan: Plan Patient was informed and verbally consented to the use of an ambient scribe for clinic note documentation during this visit Constipation - Use Dulcolax or MiraLax to promote bowel movements. - Consider a suppository if needed. - Increase fluid intake. - Abdominal x-ray to evaluate stool burden. - Addressed as secondary to constipation; focus on constipation management. - No direct treatment for back pain discussed. Orders: Orders XR KUB Today K59.00 - Constipation, unspecified, M54.9 - Dorsalgia, unspecified Coding Level of Care Code Est Pt Level 4 (25654) Diagnoses Constipation, unspecified constipation type K59.00 Constipation type: unspecified constipation type
[2025-05-02 11:32] VITALS: BP 148/62; PULSE 62; TEMP 36.8; O2SAT 95; BMI 30.6
== END 2025-05-02 12:13 | disposition home or self-care (01) ==
PROVIDERS: PCP Internal Medicine; Visit Provider Physician Assistant
DX: K59.00 Constipation, unspecified (principal)

== ENCOUNTER → 2025-05-02 12:12 | Outpatient (BNV) | payer MEDICARE, SELFPAY | PROVIDERS: PCP Internal Medicine; Visit Provider Radiology Diagnostic Radiology | DX: K59.00 Constipation, unspecified (principal) | CPT/HCPCS: 74018 ==

== ENCOUNTER 2025-05-05 09:27 | Outpatient (REF) | payer MEDICARE, SELFPAY ==
--- OUTSIDE RECORDS SUMMARY | 2025-05-05 09:39 | XMS_ITS | Encounter Summary ---
Author Organization [facility] Address [address] [place] [address] Care Team Providers Care Stripper Shovel Operator Name Role Phone Unavailable Primary Care Provider Unavailabl e Encounter Details Date Type Department Care Team (Late st Contact Info) Description 07/30/2017 Scanned Document [address] [phone] Provider, Generic Social History Tobacco Use Types [...]
--- OUTSIDE RECORDS SUMMARY | 2025-05-05 09:39 | XMS_ITS | Patient Health Record ---
Author Organization [facility] Address [address] [facility] [address] [place] [address] Care Team Providers Care Vp Customer Service Name Role Phone Silvia Reynoso Primary Care Provider ADOLPH Fernández Unavailable [phone] Allergies Allergen (clinical drug ingredient) Drug/Non Drug [...] Status Risk Notes Problem Peripheral vascular disease (906862635) Other specified peripheral vascular diseases (I73.89) Active confirmed Problem Arthritis of left foot (77943877364989 09) 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) Active confirmed Problem Primary hypertension (I10) Active confirmed Vital Signs Heart Rate 68 /min 02/06/2025 Temperature 97.1 degrees Fahrenheit 02/06/2025 Respiratory Rate 12 /min 02/06/2025 Height 61in in 02/06/2025 Weight 163.9 lbs 02/06/2025 BMI 30.97 kg/m2 02/06/2025 Encounters Encounter Location Date Provider Diagnosis [facility] [address] 08/05/2024 ADOLPH COLINDRES Arthritis of left foot M19.072 ; Pain in left toe(s) M79.675 ; Onychomycosis B35.1 ; Pain in right toe(s) M79.674 ; Other specified peripheral vascular diseases I73.89 and Blister of second toe S90.426A [facility] [address] 11/07/2024 ADOLPH COLINDRES Arthritis of left foot M19.072 ; Pain in left toe(s) M79.675 ; Onychomycosis B35.1 ; Pain in right toe(s) M79.674 ; Other specified peripheral vascular diseases I73.89 and Blister of second toe S90.426A [facility] [address] 02/06/2025 ADOLPH COLINDRES Onychomycosis B35.1 ; Pain in right toe(s) M79.674 and Other specified peripheral vascular diseases I73.89 Assessments Encounter Date Diagnosis (ICD Code) Assessment Notes Treatment Notes Treatment Clinical Notes Section Notes 08/05/2024 Pain in left toe(s) (ICD-10 - [...] aseptically debrided all ten toenails with a garment parts cutter hand and curette; pt tolerated well. 02/06/2025 Other [...] aseptically debrided all ten toenails with a garment parts cutter hand and curette; pt tolerated well. 11/07/2024 Onychomycosis [...] aseptically debrided all ten toenails with a garment parts cutter hand and curette; pt tolerated well. [...] Name:ADOLPH COLINDRES, 05/10/2025 08:00:00 AM, [address] [facility] [address], [place], [address], Insurance Providers Payer Name Payer Address Payer Phone Subscriber Number Group Number Insured Name Patient Relationship to Insured Coverage Start Date Coverage End Date [employer] Medicare [id number] [address] [address] [place] [phone] [id number] March Self - patient is the insured Medical (General) History Medical History History ICD Code atrial flutter hypertension peripheral vascular disease hypercholeremia hypokalemia vitamin D deficiency diverticulosis rectocele uterine prolapse osteopenia hand eczema alf anticoagulation-on coumadin + COVID 11/2022 COVID vaccinated X 2 (Moderna) and 1 dixon ster (Moderna) Surgical History Surgery Date(Month/Year) endoscopy colonoscopy tubal ligation eye surgery Hospitalization History Reason Date(Month/Year) sepsis 05/2024 vaginal delivery 1971 vaginal delivery 1966 vaginal delivery 1962 vaginal delivery 1959
== END 2025-05-05 09:28 | disposition home or self-care (01) ==
LOC: HO.MAMMO 09:27
PROVIDERS: PCP Internal Medicine; Visit Provider Internal Medicine
DX: Z12.31 Encounter for screening mammogram for malignant neoplasm of breast (principal)
CPT/HCPCS: 77063; 77067

== ENCOUNTER → 2025-05-05 09:45 | Outpatient (BNV) | payer MEDICARE, SELFPAY | PROVIDERS: PCP Internal Medicine; Visit Provider Internal Medicine | DX: Z12.31 Encounter for screening mammogram for malignant neoplasm of breast (principal) | CPT/HCPCS: 77063; 77067 ==

== ENCOUNTER 2025-05-18 13:20 | Outpatient (REF) | payer MEDICARE, SELFPAY ==
--- OUTSIDE RECORDS SUMMARY | 2025-05-18 14:12 | XMS_ITS | Encounter Summary ---
Author Organization [facility] Address [address] [place] [address] Care Team Providers Care Foxing Cutting Machine Operator Name Role Phone Unavailable Primary Care Provider Unavailabl e Encounter Details Date Type Department Care Team (Late st Contact Info) Description 07/30/2017 Scanned Document [address] [phone] Provider, Generic Social History Tobacco Use Types [...]
--- OUTSIDE RECORDS SUMMARY | 2025-05-18 14:13 | XMS_ITS | Patient Health Record ---
Author Organization [facility] Address [address] [facility] [address] [place] [address] Care Team Providers Care Rheumatologist Name Role Phone Silvia Reynoso Primary Care Provider ADOLPH Fernández Unavailable [phone] Allergies Allergen (clinical drug ingredient) Drug/Non Drug [...] Once a day; Duration: 90 days Active amLODIPine Besylate 5 MG 1 tablet Orally Twice a day Active Clotrimazole 1 % 1 application Externally Twice a day Not-Taking Cholecalciferol 1000 units. Take 1 cap po daily Active Atorvastatin Calcium 40 MG 1 tablet Orally Once a day Active Ciclopirox 0.77% cream. Apply to the effected nail once daily untill resolved Not-Taking Metoprolol Tartrate 25 MG 1 tablet with food Orally Twice a day Active Loratadine 10 MG 1 tablet Orally Once a day to effected area 2 times daily Not-Taking Valsartan 160 MG 1 tablet Orally twice a day Active Famotidine 20 MG 1 tablet at bedtime as needed Orally bid Not-Taking Furosemide 20 MG 1 tablet Orally Once a day PRN Active Hydrocortisone 2.5 % 1 application Externally Once a day prn Not-Taking Amiodarone HCl 200 MG 1 tablet Orally Once a day Active Losartan Potassium 25 MG 2 tablet Orally Once a day Not-Taking Eliquis 5 MG as directed Orally BID Active Warfarin Sodium 2.5 MG 1 tablet Orally Once a day Not-Taking Diclofenac Sodium 1 % 1gm to the left foot Externally twice daily as needed; Duration: 30 days Not-Taking Multaq 400 MG 1 tablet with meals Orally Twice a day Not-Taking Problems Problem Type SNOMED Code ICD Code Onset Dates Problem Status W/U Status Risk Notes Problem Peripheral vascular disease (609570255) Other specified peripheral vascular diseases (I73.89) Active confirmed Problem Arthritis of left foot (22792352247728 09) 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) Active confirmed Problem Primary hypertension (I10) Active confirmed Vital Signs Heart Rate 70 /min 05/10/2025 Temperature 96.7 degrees Fahrenheit 05/10/2025 Respiratory Rate 16 /min 05/10/2025 Height 61in in 05/10/2025 Weight 166.2 lbs 05/10/2025 BMI 31.4 kg/m2 05/10/2025 Encounters Encounter Location Date Provider Diagnosis [facility] [address] 08/05/2024 ADOLPH COLINDRES Arthritis of left foot M19.072 ; Pain in left toe(s) M79.675 ; Onychomycosis B35.1 ; Pain in right toe(s) M79.674 ; Other specified peripheral vascular diseases I73.89 and Blister of second toe S90.426A [facility] [address] 11/07/2024 ADOLPH COLINDRES Arthritis of left foot M19.072 ; Pain in left toe(s) M79.675 ; Onychomycosis B35.1 ; Pain in right toe(s) M79.674 ; Other specified peripheral vascular diseases I73.89 and Blister of second toe S90.426A [facility] [address] 02/06/2025 ADOLPH COLINDRES Onychomycosis B35.1 ; Pain in right toe(s) M79.674 and Other specified peripheral vascular diseases I73.89 [facility] [address] 05/10/2025 ADOLPH COLINDRES Onychomycosis B35.1 ; Pain in [...] aseptically debrided all ten toenails with a sheet cutter and curette; pt tolerated well. 05/10/2025 Onychomycosis (ICD-10 - B35.1) I reviewed with [...] aseptically debrided all ten toenails with a sheet cutter and curette; pt tolerated well. 02/06/2025 [...] elevate the feet periodically throughout the day. 05/10/2025 Pain in right toe(s) (ICD-10 - M79.674) 11/07/2024 Pain in left toe(s) (ICD-10 - [...] aseptically debrided all ten toenails with a sheet cutter and curette; pt tolerated well. 11/07/2024 [...] aseptically debrided all ten toenails with a sheet cutter and curette; pt tolerated well. 08/05/2024 Pain in right toe(s) (ICD-10 - M79.674) 05/10/2025 Other specified peripheral vascular diseases (ICD-10 - I73.89) She has increased leg swelling on examination today. I will defer to her PCP care team as they started a work up for this issue. She can wear compression stockings as needed for any lower extremity edema. Avoid high salt intake and elevate the feet periodically throughout the day. 11/07/2024 Pain in right toe(s) (ICD-10 - [...] Treatment Next Appt Details Provider Name:ADOLPH COLINDRES, 08/14/2025 08:00:00 AM, [address] [facility] [address], [place], [address], Insurance Providers Payer Name Payer Address Payer Phone Subscriber Number Group Number Insured Name Patient Relationship to Insured Coverage Start Date Coverage End Date [employer] Medicare [id number] [address] [address] [place] [phone] [id number] March Self - patient is the insured Medical (General) History Medical History History ICD Code atrial flutter hypertension peripheral vascular disease hypercholeremia hypokalemia vitamin D deficiency diverticulosis rectocele uterine prolapse osteopenia hand eczema [facility] anticoagulation-on coumadin + COVID 11/2022 COVID vaccinated X 2 (Moderna) and 1 dixon ster (Moderna) Surgical History Surgery Date(Month/Year) endoscopy colonoscopy tubal ligation eye surgery Hospitalization History Reason Date(Month/Year) sepsis 05/2024 vaginal delivery 1971 vaginal delivery 1966 vaginal delivery 1962 vaginal delivery 1959
[2025-05-18 16:57] LABS: Anion Gap 11 (12-20); Blood Urea Nitrogen 20 mg/dL (9-16); Calcium 9.2 mg/dL (8.4-10.2); Carbon Dioxide 26 mmol/L (22-29); Chloride 107 mmol/L (96-108); Estimated Glomerular Filt Rate 57; Potassium 3.9 mmol/L (3.3-5.1); Sodium 140 mmol/L (135-145)
[2025-05-18 17:16] LABS: B Type Natriuretic Peptide 127 pg/mL (<100)
== END 2025-05-18 13:21 | disposition home or self-care (01) ==
LOC: HO.HMGCLDS 13:20
PROVIDERS: PCP Internal Medicine; Visit Provider Internal Medicine Cardiovascular Disease
DX: I48.0 Paroxysmal atrial fibrillation (principal); I48.92 Unspecified atrial flutter
CPT/HCPCS: 36415; 80048; 83880

== ENCOUNTER 2025-05-30 12:57 | Outpatient (REF) | payer MEDICARE, SELFPAY ==
--- OUTSIDE RECORDS SUMMARY | 2025-05-30 13:40 | XMS_ITS | Clinical Summary ---
Author Organization [facility] Address [address] [place] [address] Care Team Providers Care Spin Table Operator Name Role Phone Unavailable Primary Care [...]
--- OUTSIDE RECORDS SUMMARY | 2025-05-30 13:40 | XMS_ITS | Encounter Summary ---
Author Organization [facility] Address [address] [place] [address] Care Team Providers Care Cadmium Burner Name Role Phone Unavailable Primary Care Provider Unavailabl e Encounter Details Date Type Department Care Team (Late st Contact Info) Description 07/30/2017 Scanned Document [address] [phone] Provider, Generic Social History Tobacco Use Types [...]
--- OUTSIDE RECORDS SUMMARY | 2025-05-30 13:40 | XMS_ITS | Patient Health Record ---
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) Active confirmed Problem Primary hypertension (I10) Active confirmed Vital Signs Heart Rate 70 /min 05/10/2025 Temperature 96.7 degrees Fahrenheit 05/10/2025 Respiratory Rate 16 /min 05/10/2025 Height 61in in 05/10/2025 Weight 166.2 lbs 05/10/2025 BMI 31.4 kg/m2 05/10/2025 Encounters Encounter Location Date Provider Diagnosis [facility] [address] 08/05/2024 ADOLPH COLINDRES Arthritis of left foot M19.072 ; Pain in left toe(s) M79.675 ; Onychomycosis B35.1 ; Pain in right toe(s) M79.674 ; Other specified peripheral vascular diseases I73.89 and Blister of second toe S90.426A [facility] [address] 11/07/2024 ADOLPH COLINDRES Arthritis of left foot M19.072 ; Pain in left toe(s) M79.675 ; Onychomycosis B35.1 ; Pain in right toe(s) M79.674 ; Other specified peripheral vascular diseases I73.89 and Blister of second toe S90.426A [facility] [address] 02/06/2025 ADOLPH COLINDRES Onychomycosis B35.1 ; Pain in right toe(s) M79.674 and Other specified peripheral vascular diseases I73.89 [facility] [address] 05/10/2025 ADOLPH COLINDRES Onychomycosis B35.1 ; [...] aseptically debrided all ten toenails with a stripper cutter machine and curette; pt tolerated well. 05/10/2025 Onychomycosis [...] aseptically debrided all ten toenails with a stripper cutter machine and curette; pt tolerated well. 02/06/2025 Other [...] aseptically debrided all ten toenails with a stripper cutter machine and curette; pt tolerated well. 11/07/2024 Onychomycosis [...] aseptically debrided all ten toenails with a stripper cutter machine and curette; pt tolerated well. 08/05/2024 Pain [...] Name:ADOLPH COLINDRES, 08/14/2025 08:00:00 AM, [address] [facility] [address], [place], [address], Insurance Providers Payer Name Payer Address Payer Phone Subscriber Number Group Number Insured Name Patient Relationship to Insured Coverage Start Date Coverage End Date [employer] Medicare [id number] [address] [address] [place] [phone] [id number] March Self - patient is the insured Medical (General) History Medical History History ICD Code atrial flutter hypertension peripheral vascular disease hypercholeremia hypokalemia vitamin D deficiency diverticulosis rectocele uterine prolapse osteopenia hand eczema shelter anticoagulation-on coumadin + COVID 11/2022 COVID vaccinated X 2 (Moderna) and 1 dixon ster (Moderna) Surgical History Surgery Date(Month/Year) endoscopy colonoscopy tubal ligation eye surgery Hospitalization History Reason Date(Month/Year) sepsis 05/2024 vaginal delivery 1971 vaginal delivery 1966 vaginal delivery 1962 vaginal delivery 1959
[2025-05-30 16:32] LABS: Anion Gap 11 (12-20); Blood Urea Nitrogen 22 mg/dL (9-16); Calcium 8.9 mg/dL (8.4-10.2); Carbon Dioxide 25 mmol/L (22-29); Chloride 108 mmol/L (96-108); Estimated Glomerular Filt Rate 46; Potassium 4.0 mmol/L (3.3-5.1); Sodium 140 mmol/L (135-145)
[2025-05-30 16:38] LABS: B Type Natriuretic Peptide 170 pg/mL (<100)
== END 2025-05-30 12:58 | disposition home or self-care (01) ==
LOC: HO.HMGCLDS 12:57
PROVIDERS: PCP Internal Medicine; Visit Provider Internal Medicine Cardiovascular Disease
DX: I48.0 Paroxysmal atrial fibrillation (principal)
CPT/HCPCS: 36415; 80048; 83880

== ENCOUNTER 2025-06-14 12:35 | Outpatient (AMB) | payer MEDICARE, SELFPAY ==
[2025-06-14 12:47] VITALS: BP 128/66; PULSE 60; TEMP 36.8; O2SAT 94; BMI 31.1
--- NOTE | 2025-06-14 12:47 | A.OFFPC_ITS ---
Vital Signs 06/14/25 12:47 Height 5 ft 2 in Weight 170 lb BMI 31.1 BP 128/66 Blood Pressure Location Lt brachial Position Sitting Pulse 60 Pulse Source Pulse Oximeter Temp 98.2 F Temp Source Oral Pulse Oximetry (%) 94 Oxygen Delivery Method Room Air Intake Visit Reasons: Follow up has some questions Intake Note: Pt is here today for a follow up visit to discuss some questions she has for the doctor. Allergies codeine (CODEINE) Allergy (Intermediate, Verified 06/14/25 12:47) HEADACHES hydrochlorothiazide (HYDROCHLOROTHIAZIDE) Allergy (Intermediate, Verified 06/14/25 12:47) NAUSEA & VOMITING, low K latex (LATEX) Allergy (Intermediate, Verified 06/14/25 12:47) RASH adhesive tape Allergy (Mild, Verified 06/14/25 12:47) Rash lisinopril (LISINOPRIL) Adverse Reaction (Mild, Verified 06/14/25 12:47) COUGH Medication List - Last Reconciled 06/14/25 by Silvia Reynoso MD amiodarone 200 mg PO DAILY amlodipine 5 mg PO BID apixaban (Eliquis) 5 mg PO BID atorvastatin 40 mg PO DAILY cholecalciferol (vitamin D3) 25 mcg PO BEDTIME empagliflozin (Jardiance) 10 mg PO QAM furosemide 40 mg (2 x 20 mg) PO BID metoprolol tartrate 12.5 mg (1/2 x 25 mg) PO BID nystatin (Nystop) 1 appl topical BID PRN oxyquinoline-sod.lauryl sulfat 0.025-0.01 % (Trimo-Agustin Jelly) 1 ea vaginal .2- 3x/wk triamcinolone acetonide 0.1% 1 appl topical BID PRN valsartan 160 mg orally bid Tobacco use date assessed: 04/03/25 Last assessed Fall Risk: 06/14/25 Dental Screening Dental Screen Date: 04/03/25 HPI Follow up has some questions HPI Details Patient presents for the follow-up. She reports gaining 10 lb in the last 6 months. She has been eating a lot of pasta and sweets and not being physically active as she used to. Patient reports dyspnea on exertion when walking up the stairs. She denies chest pain palpitations PND orthopnea. She has been under lot of stress related to her family moving in to her house. Debbie ent reports insomnia but denies depression or suicide ideation. Patient tried low dose of Zoloft for 2 weeks and did not find the medication helpful but denies any side effects. [facility] Medical History (Updated 06/14/25 @ 15:16 by Silvia Reynoso MD) Atrial flutter with rapid ventricular response Edema Edema Paroxysmal atrial fibrillation Osteoporosis Uterine prolapse Rectocele Hyperlipidemia Sinus bradycardia Atrial fibrillation HTN (hypertension) Surgical History S/P ablation of atrial flutter History of cholecystectomy Hx of tubal ligation Family History Father CVD (cardiovascular disease) Mother CVD (cardiovascular disease) Diabetes Other Substance use disorder Social History Household Members: Children Housing: House Do you presently have visiting nurse or other home services: No Alcohol intake: unknown Patient Tobacco Use Status: Former Tobacco user Years Smoked: 12 +/- e-Cigarette/Vaping Use: Never Used Second Hand Smoke Exposure: No service: No Current occupational status: retired 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 Current occupational exposures/hazards: No Cognitive needs: No Hearing needs: No Vision needs: Yes Questionnaire Thrive Questionnaire Date Thrive assessed: 11/23/24 I am a: Patient What is your living situation today?: I have a steady place to live Within the past 12 months, did the food you bought not last and you didn't have the money to get more?: Never true Within the past 12 months, did you worry whether your food would run out before you got money to buy more?: Never true Do you have trouble paying for medicines?: No Do you have trouble getting transportation to medical appointments?: No Do you have trouble paying your heating and electricity bill?: No Do you have trouble taking care of your child, family member or friend?: No Do you have trouble with day-to-day activities such as bathing, preparing meals, shopping, managing finances, etc.?: No Are you currently unemployed and looking for a job?: No Are you interested in more education?: No Please select the resources that you would like help with: None Currently or been in a relationship where the following occur: No concerns reported THRIVE Score: 0 RENETTA-7 AMB Questionnaire RENETTA-7 Date RENETTA - 7 assessed: 11/23/24 Source: Developed by DrsAdilia Francois, Dee Arango, Jhoan Coronel and colleagues, with an educational simone from [employer]. Review of Systems Const All systems reviewed & are unremarkable except as noted in HPI and below Eyes Reports no additional complaints ENT Reports no additional complaints Card Reports no additional complaints Resp Reports no additional complaints GI Reports no additional complaints Reports no additional complaints Physical exam (Primary Care) Vital Signs: Last Vital Signs Temp 98.2 F 06/14/25 12:47 Pulse 60 06/14/25 12:47 BP 128/66 06/14/25 12:47 Pulse Ox 94 06/14/25 12:47 Oxygen Delivery Method Room Air 06/14/25 12:47 BMI result Body Mass Index 31.1 Tobacco/Smoking Status: Tobacco use Status Tobacco use date assessed 04/03/25 06/14/25 12:47 Patient Tobacco Use Status Former Tobacco user 06/14/25 12:47 Tobacco use type 05/25/24 10:57 e-Cigarette/Vaping Use Never Used 06/14/25 12:47 Thrive Assessment: Date of Thrive Assessment Date Thrive assessed 11/23/24 06/14/25 12:47 Currently or been in a relationship where the following occur: No concerns reported Const General: no acute distress HENMT Head: Yes normal to inspection Face and sinus: Yes normal facial exam Eyes General: appearance normal, both eyes and all related structures Neck Neck: Yes supple Resp Effort & Inspection: normal respiratory effort Auscultation: clear to auscultation bilaterally Cardio Rhythm: regular rhythm Heart sounds: S1 normal heart sound present and S2 normal heart sound present Extrem Other: 2+ pitting edema bilaterally Coding Level of Care Code Est Pt Level 4 (06139) Diagnoses REARDON (dyspnea on exertion) R06.09 Hyperlipidemia E78.5 HTN (hypertension) I10 Hypertension type: unspecified Atrial flutter with rapid ventricular response I48.92 Overweight E66.3 Anxiety and depression F41.9; F32.A Assessment & Plan Assessment & Plan (1) REARDON (dyspnea on exertion): Code(s): R06.09 - Other forms of dyspnea Category: Medical Plan: Obtain echocardiogram to evaluate for ejection fraction. She has been on high dose of furosemide up to 80 mg for chronic lower extremity edema without significant improvement (2) Hyperlipidemia: Code(s): E78.5 - Hyperlipidemia, unspecified Category: Medical Plan: Continue statin (3) HTN (hypertension): Code(s): I10 - Essential (primary) hypertension Category: Medical Qualifiers: Hypertension type: unspecified Qualified Code(s): I10 - Essential (primary) hypertension Plan: Continue current medications (4) Atrial flutter with rapid ventricular response: Comment: s/p ablation 05/2024 Dr. Graff, on amiodarone follow-up with Cardiology, extended Holter no AFib, or pauses, in sinus rhythm 95% of the time Code(s): I48.92 - Unspecified atrial flutter Category: Medical Plan: Continue current medications including amiodarone and Eliquis. Established with director of hospitality (5) Overweight: Code(s): E66.3 - Overweight Category: Medical Plan: Decreasing caloric intake increasing physical activity discussed with the jc tejeda (6) Anxiety and depression: Code(s): F41.9 - Anxiety disorder, unspecified; F32.A - Depression, unspecified Category: Medical Plan: Patient will try 50 mg of Zoloft stress management discussed with the patient. Follow-up in 1 month Orders: Orders CA echo transthoracic complete Today R06.09 - Other forms of dyspnea Comprehensive [place]. Panel Fast 1 Month E78.5 - Hyperlipidemia, unspecified, I10 - Essential (primary) hypertension Lipid Panel 1 Month E78.5 - Hyperlipidemia, unspecified, I10 - Essential (primary) hypertension Complete Blood Count Auto Diff 1 Month E78.5 - Hyperlipidemia, unspecified, I10 - Essential (primary) hypertension Medications: New sertraline 50 mg PO DAILY 90 tabs 1RF ketoconazole 2% 1 appl topical DAILY 60 grams 0RF Refilled valsartan 160 mg orally bid 90 tabs 3RF
--- OUTSIDE RECORDS SUMMARY | 2025-06-14 15:31 | XMS_ITS | Clinical Summary ---
Author Organization [facility] Address [address] [place] [address] Care Team Providers Care Report Analyst Name Role Phone Unavailable Primary Care [...] Health Maintenance Due Date Last Done Comments Advance Care Planning 1940 DTaP/Tdap/Td Vaccines (1 - Tdap) 1959 Pneumococcal Vaccines 50+ (1 of 1 - PCV) 1990 Zoster (Shingles) Vaccine (1 of 2) 1990 RSV Vaccine 60 years and old er and Patients (1 - 1-dose 75+ series) 2015 COVID-19 Vaccine ( - 2023-2 5 season) 2025 Hepatitis B Vaccines Aged Out No long er eligible based on patient's age to complete this topic
--- OUTSIDE RECORDS SUMMARY | 2025-06-14 15:31 | XMS_ITS | Patient Health Record ---
Author Organization [facility] Address [address] [place] [address] Care Team Providers Care Welding Supervisor Name Role Phone Silvia Reynoso Primary Care Provider ADOLPH Fernández Unavailable [phone] Allergies Allergen (clinical drug ingredient) Drug/Non Drug [...] Status Risk Notes Problem Peripheral vascular disease (716249362) Other specified peripheral vascular diseases (I73.89) Active confirmed Problem Arthritis of left foot ([id number]) 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) Active confirmed Problem Primary hypertension (46721928) Primary hypertension (I10) Active confirmed Vital Signs Heart Rate 70 /min 05/10/2025 Temperature 96.7 degrees Fahrenheit 05/10/2025 Respiratory Rate 16 /min 05/10/2025 Height 61in in 05/10/2025 Weight 166.2 lbs 05/10/2025 BMI 31.4 kg/m2 05/10/2025 Encounters Encounter Location Date Provider Diagnosis [facility] [address] 08/05/2024 ADOLPH COLINDRES Arthritis of left foot M19.072 ; Pain in left toe(s) M79.675 ; Onychomycosis B35.1 ; Pain in right toe(s) M79.674 ; Other specified peripheral vascular diseases I73.89 and Blister of second toe S90.426A [facility] [address] 11/07/2024 ADOLPH COLINDRES Arthritis of left foot M19.072 ; Pain in left toe(s) M79.675 ; Onychomycosis B35.1 ; Pain in right toe(s) M79.674 ; Other specified peripheral vascular diseases I73.89 and Blister of second toe S90.426A [facility] [address] [phone] 02/06/2025 ADOLPH COLINDRES Onychomycosis B35.1 ; Pain in right toe(s) M79.674 and Other specified peripheral vascular diseases I73.89 [facility] [address] [phone] 05/10/2025 ADOLPH COLINDRES Onychomycosis B35.1 ; Pain [...] aseptically debrided all ten toenails with a poultry cutter and curette; pt tolerated well. 05/10/2025 [...] aseptically debrided all ten toenails with a poultry cutter and curette; pt tolerated well. 02/06/2025 [...] aseptically debrided all ten toenails with a poultry cutter and curette; pt tolerated well. 11/07/2024 [...] aseptically debrided all ten toenails with a poultry cutter and curette; pt tolerated well. 08/05/2024 [...] Treatment Next Appt Details Provider Name:ADOLPH DURAN COLINDRES, 08/14/2025 08:00:00 AM, [address] [facility] [address], [place], [address], Insurance Providers Payer Name Payer Address Payer Phone Subscriber Number Group Number Insured Name Patient Relationship to Insured Coverage Start Date Coverage End Date [employer] Medicare [id number] [address] [address] [place] [address] [id number] March Self - patient is the insured Medical (General) History Medical History History ICD Code atrial flutter hypertension peripheral vascular disease hypercholeremia hypokalemia vitamin D deficiency diverticulosis rectocele uterine prolapse osteopenia hand eczema long-term anticoagulation-on coumadin + COVID 11/2022 COVID vaccinated X 2 (Moderna) and 1 dixon ster (Moderna) Surgical History Surgery Date(Month/Year) endoscopy colonoscopy tubal ligation eye surgery Hospitalization History Reason Date(Month/Year) sepsis 05/2024 vaginal delivery 1971 vaginal delivery 1966 vaginal delivery 1962 vaginal delivery 1959
--- OUTSIDE RECORDS SUMMARY | 2025-06-14 15:31 | XMS_ITS | Encounter Summary ---
Author Organization [facility] Address [address] [place] [address] Care Team Providers Care Show Jumping Instructor Name Role Phone Unavailable Primary Care Provider Unavailabl e Encounter Details Date Type Department Care Team (Late st Contact Info) Description 07/30/2017 Scanned Document [address] [id number] Provider, Generic Social History Tobacco Use Types [...]
== END 2025-06-14 15:17 | disposition home or self-care (01) ==
LOC: HO.HMCC 12:36
PROVIDERS: PCP Internal Medicine; Visit Provider Internal Medicine
DX: R06.09 Other forms of dyspnea (principal); E78.5 Hyperlipidemia, unspecified; I10 Essential (primary) hypertension; I48.92 Unspecified atrial flutter; E66.3 Overweight; F41.9 Anxiety disorder, unspecified; F32.A Depression, unspecified

== ENCOUNTER → 2025-06-14 12:35 | Outpatient (BNVA) | payer MEDICARE, SELFPAY | PROVIDERS: PCP Internal Medicine; Visit Provider Internal Medicine | DX: I10 Essential (primary) hypertension (principal); E78.5 Hyperlipidemia, unspecified; R06.09 Other forms of dyspnea; I48.92 Unspecified atrial flutter; E66.3 Overweight; F41.9 Anxiety disorder, unspecified; F32.A Depression, unspecified; Z68.31 Body mass index [BMI] 31.0-31.9, adult | CPT/HCPCS: 99212 ==

== ENCOUNTER → 2025-06-22 13:49 | Outpatient (REF) | payer MEDICARE, SELFPAY ==
--- NOTE | 2025-06-22 13:52 | CA_ITS ---
Transthoracic Echocardiogram Patient (Last, First, Middle): ToddMarch, Gender: Female Date of : 1940 Age: 85 Procedure Date: 06/22/2025 Procedure Type: Transthoracic Echocardiogram Location: OP Height: 157.48 cm Weight: 77.11 kg BSA: 1.78 m2 Heart Rate: bpm BP: 130 / 70 mmHg Rock Wool Insulator: TO Referring MD: Silvia Reynoso MD Symptoms: R06.09 - Other forms of dyspnea Study Quality: Fair ECG Rhythm: Sinus Conclusions: - The left ventricular systolic function is normal. The calculated ejection fraction is 65% by biplane method. - No obvious valvular pathology seen on this study. Findings Left Ventricle Normal left ventricular cavity size. The left ventricular systolic function is normal. The calculated ejection fraction is 65% by biplane method. There is no evidence of regional wall motion abnormalities. Diastolic function is normal for age. There is mild septal asymmetric hypertrophy. Right Ventricle Normal right ventricular cavity size and systolic function. Atria Possible mild left atrial enlargement. The right atrium is normal in size. Aortic Valve There is a normal trileaflet aortic valve. There is mild calcification of the aortic valve. There is no aortic valve stenosis. There is no aortic valve regurgitation. Mitral Valve There is mild mitral annular calcification. There is mild mitral valve regurgitation. There is no mitral valve stenosis. Pulmonic Valve The pulmonic valve is likely normal. Tricuspid Valve There is trace tricuspid valve regurgitation. There is no evidence of pulmonary hypertension. Great Vessels The asc aorta is normal in size. Venous The inferior vena cava is normal in size and collapses greater than 50% with inspiration. Pericardium/Pleural There is no evidence of pericardial effusion. Prior Study Comparison Changes noted compared to prior study dated: 05/11/2024. Left atrium does not appear severely enlarged. Recommendations, Care & Conclusions No obvious valvular pathology seen on this study. Measurements 2D Linear Measurements IVSd: 1.14 0.6-0.9/0.6-1.0 cm LVIDd: 5.38 3.9-5.3/4.2-5.9 cm LVIDd Index: 3.02 2.4-3.2/2.2-3.1 cm/m2 LVIDs: 3.32 2.0-3.6 cm LVPWd: 0.86 0.7-1.1 cm LA Diam: 3.80 2.7-3.8/3.0-4.0 cm LAIDs Index: 2.13 1.5-2.3 cm/m2 LV Mass: 255.57 67-162/88-224 g LV Mass Index: 143.58 43-95/49-115 g/m2 LVOT Diam: 2.10 3.0+(-)1.3 cm 2D Systolic Function EF 4C: 63.10 >55% EF 2C: 66.20 >55% EF BiP: 65.30 >55% Mitral Valve MV Pk E: 0.68 MV PK A: 0.82 MV Decel Time: 248.00 E/A: 0.80 E'Lateral: 6.96 E'Medial: 4.79 E/E' Med: 14.20 E/E' Lat: 9.80 PHT: 73.00 MVA PHT: 3.01 Decel Toole: 2.75 Aortic Valve AoV Pk Graham: 1.43 AoV Mn Graham: 0.93 AoV VTI: 0.33 AoV Pk Grad: 8.00 Aov Mn Grad: 4.00 ASHLEY Cont.VTI: 2.61 LVOT LVOT Pk Graham: 0.95 LVOT Mn Graham: 0.66 LVOT VTI: 0.25 LVOT Pk Grad: 4.00 LVOT Mn Grad: 2.00 LVOT Diam: 2.10 LVOT Area: 3.46 Diastolic Function MV Pk E: 0.68 MV Pk A: 0.82 E/A: 0.80 E'Medial: 4.79 E/E' Med: 14.20 E' Laterial: 6.96 E/E' Lat: 9.80 Right Ventricle TAPSE (mm): 25.70 TVS' Graham: 12.60 Tricuspid Valve TR Pk Graham: 1.99 TR Pk Grad: 16.00 RA Press: 3.00 RVSP: 19.00 Great Vessels Aorta Sinus of Valsalva: 3.54 2.0-3.5 cm Ao Asc: 3.70 2.1-3.4 cm Updated in Other Vendor System with Status of Final Chivo Duran MD electronically signed on 06/24/2025 11:27:21 AM with status of Final
--- OUTSIDE RECORDS SUMMARY | 2025-06-22 15:52 | XMS_ITS | Clinical Summary ---
Author Organization [facility] Address [address] [place] [address] Care Team Providers Care Doffer Name Role Phone Unavailable Primary Care Provider [...]
--- OUTSIDE RECORDS SUMMARY | 2025-06-22 15:52 | XMS_ITS | Encounter Summary ---
Author Organization [facility] Address [address] [place] [address] Care Team Providers Care Felt Hooker Name Role Phone Unavailable Primary Care Provider Unavailabl e Encounter Details Date Type Department Care Team (Late st Contact Info) Description 07/30/2017 Scanned Document [address] [phone] Provider, Generic Social History Tobacco Use Types [...]
== END ==
LOC: HO.CARD 13:49
PROVIDERS: PCP Internal Medicine; Visit Provider Internal Medicine
DX: R06.09 Other forms of dyspnea (principal)
CPT/HCPCS: 93306

== ENCOUNTER → 2025-06-22 13:52 | Outpatient (BNV) | payer MEDICARE, SELFPAY | PROVIDERS: PCP Internal Medicine; Visit Provider Internal Medicine | DX: R06.09 Other forms of dyspnea (principal) | CPT/HCPCS: 93306 ==

== ENCOUNTER 2025-06-29 13:45 | Outpatient (REF) | payer MEDICARE, SELFPAY ==
[2025-06-29 17:48] LABS: Bacterial Vaginosis PCR POSITIVE (Negative); Candida Group PCR DETECTED (Not Detect); Candida glab krusei PCR DETECTED (Not Detect); Trichomonas vaginalis PCR NOT DETECTED (Not Detect)
== END 2025-06-29 13:46 | disposition home or self-care (01) ==
LOC: HO.LAB 13:45
PROVIDERS: Physician Assistant Medical; PCP Internal Medicine
DX: N94.89 Other specified conditions associated with female genital organs and menstrual cycle (principal); Z20.2 Contact with and (suspected) exposure to infections with a predominantly sexual mode of transmission
CPT/HCPCS: 81515; 99212

== ENCOUNTER 2025-06-29 13:45 | Outpatient (AMB) | payer MEDICARE, SELFPAY ==
[2025-06-29 13:54] VITALS: BP 152/66; PULSE 69; TEMP 36.4; O2SAT 97; BMI 30.4
--- NOTE | 2025-06-29 13:54 | AM.OFFWIN_ITS ---
Intake Vital Signs 06/29/25 13:54 Height 5 ft 2 in Weight 166 lb BMI 30.4 BP 152/66 H Blood Pressure Location Lt brachial Position Sitting Pulse 69 Pulse Source Pulse Oximeter Temp 97.5 F Temp Source Oral Pulse Oximetry (%) 97 Oxygen Delivery Method Room Air Intake Visit Reasons: ep lot of burning vaginal area Patient Tobacco Use Status: Former Tobacco user Allergies codeine (CODEINE) Allergy (Intermediate, Verified 06/29/25 13:56) HEADACHES hydrochlorothiazide (HYDROCHLOROTHIAZIDE) Allergy (Intermediate, Verified 06/29/25 13:56) NAUSEA & VOMITING, low K latex (LATEX) Allergy (Intermediate, Verified 06/29/25 13:56) RASH adhesive tape Allergy (Mild, Verified 06/29/25 13:56) Rash lisinopril (LISINOPRIL) Adverse Reaction (Mild, Verified 06/29/25 13:56) COUGH Do you need a note to return to daycare/school/sports/work: No HPI HPI Comments History of Present Illness Details History of Present Illness - The patient is an 85-year-old female p resenting with vaginal burning and irritation. - The burning sensation in the vaginal a joaquín has been persistent, with no associated pain during urination. - The patient reports the use of a pessa ry and notes that the area appears red and irritated. - There is a slight odor present, but no significant discharge or itching reported. - The patient is currently taking Jardia nce, which may contribute to the development of yeast infections. - She has no discharge, dysuria, hematur ia, abd pain, back pain, fever, or chills. Physical Exam General: Cooperative, healthy appearing, comfortable, no acute distress and well developed Orientation: Patient oriented x3 Respiratory: Normal respiratory effort and able to speak in complete sentences. Clear to auscultation bilaterally. No w/r/r noted. Cardiovascular: Regular rate and rhythm. Normal S1 and S2. No m/r/g noted. GI: Hypoactive BS noted. Normal to inspection. Soft to palpation and nontender. No TTP, no guarding or rebound tenderness noted. Skin: Redness the labia. No lesions noted. Patient was informed and verbally consented to the use of an ambient scribe for clinic note documentation during this visit. [facility] Medical History (Updated 06/14/25 @ 15:16 by Silvia Reynoso MD) Atrial flutter with rapid ventricular response Edema Edema Paroxysmal atrial fibrillation Osteoporosis Uterine prolapse Rectocele Hyperlipidemia Sinus bradycardia Atrial fibrillation HTN (hypertension) Surgical History S/P ablation of atrial flutter History of cholecystectomy Hx of tubal ligation Family History Father CVD (cardiovascular disease) Mother CVD (cardiovascular disease) Diabetes Other Substance use disorder Social History Household Members: Children Housing: House Do you presently have visiting nurse or other home services: No Alcohol intake: unknown Patient Tobacco Use Status: Former Tobacco user Years Smoked: 12 +/- e-Cigarette/Vaping Use: Never Used Second Hand Smoke Exposure: No service: No Current occupational status: retired 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 [employer] Current occupational exposures/hazards: No Cognitive needs: No Hearing needs: No Vision needs: Yes Review of Systems Const All systems reviewed & are unremarkable except as noted in HPI and below Physical Exam Vital Signs: Last Vital Signs Temp 97.5 F 06/29/25 13:54 Pulse 69 06/29/25 13:54 BP 152/66 H 06/29/25 13:54 Pulse Ox 97 06/29/25 13:54 Oxygen Delivery Method Room Air 06/29/25 13:54 BMI result Body Mass Index 30.4 Assessment & Plan Assessment & Plan (1) Vaginal burning: Code(s): N94.89 - Other specified conditions associated with female genital organs and menstrual cycle Plan Most likely yeast infection plan - Prescribed oral antifungal medication to be taken immediately and a follow-up dose in three days. - A swab was taken for laboratory analysis to confirm the diagnosis and rule out other infections. - Advised to avoid applying creams internally and to use them only externally as needed. - follow up with PCP Orders: Orders Bacterial Vaginosis Panel Today N94.89 - Other specified conditions associated with female genital organs and menstrual cycle Medications: New fluconazole may repeat second dose 72 hrs after first dose if symptoms persist 150 mg PO Q3D 2 tabs 0RF Coding Level of Care Code Est Pt Level 3 (42829) Diagnoses Vaginal burning N94.89
--- OUTSIDE RECORDS SUMMARY | 2025-06-29 18:19 | XMS_ITS | Patient Health Record ---
Author Organization [facility] Address [address] [facility] [address] [place] [address] Care Team Providers Care Silver Brazer Name Role Phone Silvia Reynoso Primary Care Provider ADOLPH Fernández Unavailable [phone] Allergies Allergen (clinical drug ingredient) Drug/Non Drug [...] Status Risk Notes Problem Peripheral vascular disease (792938500) Other specified peripheral vascular diseases (I73.89) Active confirmed Problem Arthritis of left foot (860479838380512 9) 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) Active confirmed Problem Primary hypertension (97133313) Primary hypertension (I10) Active confirmed Vital Signs Heart Rate 70 /min 05/10/2025 Temperature 96.7 degrees Fahrenheit 05/10/2025 Respiratory Rate 16 /min 05/10/2025 Height 61in in 05/10/2025 Weight 166.2 lbs 05/10/2025 BMI 31.4 kg/m2 05/10/2025 Encounters Encounter Location Date Provider Diagnosis [facility] [address] 08/05/2024 ADOLPH COLINDRES Arthritis of left foot M19.072 ; Pain in left toe(s) M79.675 ; Onychomycosis B35.1 ; Pain in right toe(s) M79.674 ; Other specified peripheral vascular diseases I73.89 and Blister of second toe S90.426A [facility] [address] 11/07/2024 ADOLPH COLINDRES Arthritis of left foot M19.072 ; Pain in left toe(s) M79.675 ; Onychomycosis B35.1 ; Pain in right toe(s) M79.674 ; Other specified peripheral vascular diseases I73.89 and Blister of second toe S90.426A [facility] [address] [address] 02/06/2025 ADOLPH COLINDRES Onychomycosis B35.1 ; Pain in right toe(s) M79.674 and Other specified peripheral vascular diseases I73.89 [facility] [address] [address] 05/10/2025 ADOLPH COLINDRES Onychomycosis B35.1 ; Pain [...] debrided all ten toenails with a hand fabric cutter and curette; pt tolerated well. 05/10/2025 [...] debrided all ten toenails with a hand fabric cutter and curette; pt tolerated well. 02/06/2025 [...] debrided all ten toenails with a hand fabric cutter and curette; pt tolerated well. 11/07/2024 [...] debrided all ten toenails with a hand fabric cutter and curette; pt tolerated well. 08/05/2024 [...] DURAN COLINDRES, 08/14/2025 08:00:00 AM, [address] [facility] [address], [place], [address], Insurance Providers Payer Name Payer Address Payer Phone Subscriber Number Group Number Insured Name Patient Relationship to Insured Coverage Start Date Coverage End Date [employer] Medicare [id number] [address] [address] [place] [address] [id number] March Self - patient is the insured Medical (General) History Medical History History ICD Code atrial flutter hypertension peripheral vascular disease hypercholeremia hypokalemia vitamin D deficiency diverticulosis rectocele uterine prolapse osteopenia hand eczema [facility] anticoagulation-on coumadin + COVID 11/2022 COVID vaccinated X 2 (Moderna) and 1 dixon ster (Moderna) Surgical History Surgery Date(Month/Year) endoscopy colonoscopy tubal ligation eye surgery Hospitalization History Reason Date(Month/Year) sepsis 05/2024 vaginal delivery 1971 vaginal delivery 1966 vaginal delivery 1962 vaginal delivery 1959
--- OUTSIDE RECORDS SUMMARY | 2025-06-29 18:19 | XMS_ITS | Encounter Summary ---
Author Organization [facility] Address [address] [place] [address] Care Team Providers Care Emergency Vehicle Operator Name Role Phone Unavailable Primary Care Provider Unavailabl e Encounter Details Date Type Department Care Team (Late st Contact Info) Description 07/30/2017 Scanned Document [address] [phone] Provider, Generic Social History Tobacco Use Types [...]
--- OUTSIDE RECORDS SUMMARY | 2025-06-29 18:19 | XMS_ITS | Clinical Summary ---
Author Organization [facility] Address [address] [place] [address] Care Team Providers Care Butter Printer Name Role Phone Unavailable Primary Care Provider [...]
== END 2025-06-29 14:50 | disposition home or self-care (01) ==
PROVIDERS: PCP Internal Medicine; Visit Provider Physician Assistant Medical
DX: N94.89 Other specified conditions associated with female genital organs and menstrual cycle (principal)

== ENCOUNTER 2025-07-07 09:51 | Outpatient (AMB) | payer MEDICARE, SELFPAY ==
[2025-07-07 09:58] VITALS: BP 138/62; PULSE 64; TEMP 36.6; O2SAT 96; BMI 30.4
--- NOTE | 2025-07-07 09:58 | MHC.OFFWIV ---
Intake Vital Signs 07/07/25 09:58 Height 5 ft 2 in Weight 166 lb BMI 30.4 BP 138/62 Blood Pressure Location Lt brachial Position Sitting Pulse 64 Pulse Source Pulse Oximeter Temp 97.8 F Temp Source Oral Pulse Oximetry (%) 96 Oxygen Delivery Method Room Air Intake Visit Reasons: EP Vaginal infection Intake Note: pt presents with burning to external vagina- completed the abx this morning Patient Tobacco Use Status: Former Tobacco user Allergies codeine (CODEINE) Allergy (Intermediate, Verified 06/29/25 13:56) HEADACHES hydrochlorothiazide (HYDROCHLOROTHIAZIDE) Allergy (Intermediate, Verified 06/29/25 13:56) NAUSEA & VOMITING, low K latex (LATEX) Allergy (Intermediate, Verified 06/29/25 13:56) RASH adhesive tape Allergy (Mild, Verified 06/29/25 13:56) Rash lisinopril (LISINOPRIL) Adverse Reaction (Mild, Verified 06/29/25 13:56) COUGH HPI HPI Comments History of Present Illness Details This is an 85-year-old female presenting for evaluation of external vaginal itching. Patient was seen initially on June and prescribed fluconazole for a likely vaginal yeast infection. Subsequently her BV test was positive for bacterial vaginosis and she was prescribed a 1 week course of Flagyl which she completed this ending. Patient states that her symptoms have significantly improved and she has no active vaginal discharge but she does have external itching of her vulva. Patient denies having any abdominal pain, fevers, chills, urinary frequency or dysuria. [facility] Medical History (Updated 07/07/25 @ 10:22 by Maribell Beckford PA-C) Atrial flutter with rapid ventricular response Edema Edema Paroxysmal atrial fibrillation Osteoporosis Uterine prolapse Rectocele Hyperlipidemia Sinus bradycardia Atrial fibrillation HTN (hypertension) Surgical History S/P ablation of atrial flutter History of cholecystectomy Hx of tubal ligation Family History Father CVD (cardiovascular disease) Mother CVD (cardiovascular disease) Diabetes Other Substance use disorder Social History Household Members: Children Housing: House Do you presently have visiting nurse or other home services: No Alcohol intake: unknown Patient Tobacco Use Status: Former Tobacco user Years Smoked: 12 +/- e-Cigarette/Vaping Use: Never Used Second Hand Smoke Exposure: No service: No Current occupational status: 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 Current occupational exposures/hazards: No Cognitive needs: No Hearing needs: No Vision needs: Yes Review of Systems Const All systems reviewed & are unremarkable except as noted in HPI and below Denies body aches, Denies chills, Denies fatigue and Denies fever(s) Eyes Reports no additional complaints ENT Reports no additional complaints Card Reports no additional complaints Resp Reports no additional complaints GI Reports no additional complaints, Denies abdominal pain, Denies diarrhea, Denies loose stools, Denies nausea and Denies vomiting Denies dysuria, Denies urinary incontinence, Denies urinary urgency, Denies vaginal discharge, Denies vaginal dryness, Denies vaginal odor and Reports vaginal pruritus Musc Reports no additional complaints Skin/Breast Reports system reviewed and no additional complaints, except as documented Neuro Reports no additional complaints Psych Reports no additional complaints Endo Reports no additional complaints and Denies fatigue Physical Exam Vital Signs: Last Vital Signs Temp 97.8 F 07/07/25 09:58 Pulse 64 07/07/25 09:58 BP 138/62 07/07/25 09:58 Pulse Ox 96 07/07/25 09:58 Oxygen Delivery Method Room Air 07/07/25 09:58 BMI result Body Mass Index 30.4 Patient is afebrile. Const General: cooperative, healthy appearing, comfortable, no acute distress, well developed, alert, awake and Physically active; No acute distress, ill appearing, lethargic or poor hygiene Nutritional Appearance: average body habitus Orientation/consciousness: patient oriented x3 and No lethargic Limitations: no limitations GI Inspection: Yes normal to inspection Palpation (GI): Soft to palpation and nontender Other: Speculum exam is deferred - external visualization of the vagina and introitus reveal normal tissue, no abrasion, trauma or vaginal discharge noted General: Yes bladder normal to palpation External Female Exam: normal external appearance, normal appearance of the urethra, No erythema, No externally tender, No external swelling, No lesion, No laceration and No urethral discharge Bimanual exam- vagina & uterus: bladder normal to palpation Skin General skin exam: no rashes or lesions noted Neuro General: patient oriented x3 Psych Appearance: grossly normal Mental Status: mental status grossly normal Insight: Good insight present (Psych) Judgement: Good judgement present (Psych) Assessment & Plan Assessment & Plan (1) Vaginitis and vulvovaginitis: Comment: Patient's most recent office visit as well as test results and prescriptions are reviewed. Patient is evaluated, examined and provided with reassurance. Code(s): N76.0 - Acute vaginitis Plan: Patient will obtain a zinc oxide based barrier cream to use as needed for comfort. Patient is reassured that symptoms should resolve within 3-5 days. Coding Level of Care Code Est Pt Level 3 (32738) Diagnoses Vaginitis and vulvovaginitis N76.0 Time Spent (min) 20
--- OUTSIDE RECORDS SUMMARY | 2025-07-07 10:28 | XMS_ITS | Encounter Summary ---
Author Organization [facility] Address [address] [place] [address] Care Team Providers Care Material Controller Name Role Phone Unavailable Primary Care Provider Unavailabl e Encounter Details Date Type Department Care Team (Late st Contact Info) Description 07/30/2017 Scanned Document [address] [phone] Provider, Generic Social History Tobacco Use Types [...]
--- OUTSIDE RECORDS SUMMARY | 2025-07-07 10:28 | XMS_ITS | Patient Health Record ---
Author Organization [facility] Address [address] [facility] [address] [place] [address] Care Team Providers Care Fitness Manager Name Role Phone Silvia Reynoso Primary Care Provider ADOLPH Fernández Unavailable [phone] Allergies Allergen (clinical drug ingredient) Drug/Non Drug [...] Status Risk Notes Problem Peripheral vascular disease (567336717) Other specified peripheral vascular diseases (I73.89) Active confirmed Problem Arthritis of left foot (998073071215852 9) 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) Active confirmed Problem Primary hypertension (20669396) Primary hypertension (I10) Active confirmed Vital Signs Heart Rate 70 /min 05/10/2025 Temperature 96.7 degrees Fahrenheit 05/10/2025 Respiratory Rate 16 /min 05/10/2025 Height 61in in 05/10/2025 Weight 166.2 lbs 05/10/2025 BMI 31.4 kg/m2 05/10/2025 Encounters Encounter Location Date Provider Diagnosis [facility] [address] 08/05/2024 ADOLPH COLINDRES Arthritis of left foot M19.072 ; Pain in left toe(s) M79.675 ; Onychomycosis B35.1 ; Pain in right toe(s) M79.674 ; Other specified peripheral vascular diseases I73.89 and Blister of second toe S90.426A [facility] [address] 11/07/2024 ADOLPH COLINDRES Arthritis of left foot M19.072 ; Pain in left toe(s) M79.675 ; Onychomycosis B35.1 ; Pain in right toe(s) M79.674 ; Other specified peripheral vascular diseases I73.89 and Blister of second toe S90.426A [facility] [address] [address] 02/06/2025 ADOLPH COLINDRES Onychomycosis B35.1 ; Pain in right toe(s) M79.674 and Other specified peripheral vascular diseases I73.89 [facility] [address] [address] 05/10/2025 ADOLPH COLINDRES Onychomycosis B35.1 ; Pain [...] aseptically debrided all ten toenails with a pie cutter and curette; pt tolerated well. 05/10/2025 [...] aseptically debrided all ten toenails with a pie cutter and curette; pt tolerated well. 02/06/2025 [...] aseptically debrided all ten toenails with a pie cutter and curette; pt tolerated well. 11/07/2024 [...] aseptically debrided all ten toenails with a pie cutter and curette; pt tolerated well. 08/05/2024 [...] DURAN COLINDRES, 08/14/2025 08:00:00 AM, [address] [facility] [address], [place], [address], Insurance Providers Payer Name Payer Address Payer Phone Subscriber Number Group Number Insured Name Patient Relationship to Insured Coverage Start Date Coverage End Date [employer] Medicare [id number] [address] [address] [place] [address] [id number] March Self - patient is the insured Medical (General) History Medical History History ICD Code atrial flutter hypertension peripheral vascular disease hypercholeremia hypokalemia vitamin D deficiency diverticulosis rectocele uterine prolapse osteopenia hand eczema [facility] anticoagulation-on coumadin + COVID 11/2022 COVID vaccinated X 2 (Moderna) and 1 dixon ster (Moderna) Surgical History Surgery Date(Month/Year) endoscopy colonoscopy tubal ligation eye surgery Hospitalization History Reason Date(Month/Year) sepsis 05/2024 vaginal delivery 1971 vaginal delivery 1966 vaginal delivery 1962 vaginal delivery 1959
--- OUTSIDE RECORDS SUMMARY | 2025-07-07 10:28 | XMS_ITS | Clinical Summary ---
Author Organization [facility] Address [address] [place] [address] Care Team Providers Care Spearer Name Role Phone Unavailable Primary Care Provider [...]
== END 2025-07-07 10:57 | disposition home or self-care (01) ==
PROVIDERS: PCP Internal Medicine; Visit Provider Physician Assistant
DX: N76.0 Acute vaginitis (principal)

== ENCOUNTER → 2025-07-07 09:51 | Outpatient (BNVA) | payer MEDICARE, SELFPAY | PROVIDERS: PCP Internal Medicine; Visit Provider Physician Assistant | DX: N76.0 Acute vaginitis (principal) | CPT/HCPCS: 99212 ==

== ENCOUNTER 2025-07-10 08:41 | Outpatient (REF) | payer MEDICARE, SELFPAY ==
[2025-07-10 09:06] LABS: MANUAL DIFF FLAG NO
[2025-07-10 09:12] LABS: Hematocrit 40.6 % (37.0-47.0); Hemoglobin 14.0 g/dl (12.0-16.0); Imm Gran Abs Auto 0.01 X10*3/uL (0.00-0.03); Imm Gran Pct Auto 0.2 % (0.0-0.4); Lymphocytes Absolute Auto 1.7 X10*3/uL (1.2-4.9); Mean Corpuscular HGB Conc 34.5 g/dl (31.0-35.0); Mean Corpuscular Hemoglobin 29.7 pg (27.0-33.0); Mean Corpuscular Volume 86.2 fL (80.0-98.0); NRBC Abs Auto 0.000 X10*3/uL (0.0-0.012); NRBC Pct Auto 0.0 /100WBC (0.0-0.2); Platelet Count 198 X10*3/uL (160-400); Red Blood Count 4.71 X10*6/uL (4.20-5.50); White Blood Count 4.9 X10*3/uL (4.8-10.8)
--- OUTSIDE RECORDS SUMMARY | 2025-07-10 09:23 | XMS_ITS | Clinical Summary ---
Author Organization [facility] Address [address] [place] [address] Care Team Providers Care Nursery Manager Name Role Phone Unavailable Primary Care [...]
--- OUTSIDE RECORDS SUMMARY | 2025-07-10 09:24 | XMS_ITS | Patient Health Record ---
Author Organization [facility] Address [address] [facility] [address] [place] [address] Care Team Providers Care Software Configuration Specialist Name Role Phone Silvia Reynoso Primary Care Provider ADOLPH Fernández Unavailable [phone] Allergies Allergen (clinical drug ingredient) Drug/Non Drug [...] Status Risk Notes Problem Peripheral vascular disease (541028538) Other specified peripheral vascular diseases (I73.89) Active confirmed Problem Arthritis of left foot (165331716218450 9) 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) Active confirmed Problem Primary hypertension (38026048) Primary hypertension (I10) Active confirmed Vital Signs Heart Rate 70 /min 05/10/2025 Temperature 96.7 degrees Fahrenheit 05/10/2025 Respiratory Rate 16 /min 05/10/2025 Height 61in in 05/10/2025 Weight 166.2 lbs 05/10/2025 BMI 31.4 kg/m2 05/10/2025 Encounters Encounter Location Date Provider Diagnosis [facility] [address] 08/05/2024 ADOLPH COLINDRES Arthritis of left foot M19.072 ; Pain in left toe(s) M79.675 ; Onychomycosis B35.1 ; Pain in right toe(s) M79.674 ; Other specified peripheral vascular diseases I73.89 and Blister of second toe S90.426A [facility] [address] 11/07/2024 ADOLPH COLINDRES Arthritis of left foot M19.072 ; Pain in left toe(s) M79.675 ; Onychomycosis B35.1 ; Pain in right toe(s) M79.674 ; Other specified peripheral vascular diseases I73.89 and Blister of second toe S90.426A [facility] [address] [address] 02/06/2025 ADOLPH COLINDRES Onychomycosis B35.1 ; Pain in right toe(s) M79.674 and Other specified peripheral vascular diseases I73.89 [facility] [address] [address] 05/10/2025 ADOLPH COLINDRES Onychomycosis B35.1 ; Pain [...] aseptically debrided all ten toenails with a nail feeder and curette; pt tolerated well. 05/10/2025 Onychomycosis [...] aseptically debrided all ten toenails with a nail feeder and curette; pt tolerated well. 02/06/2025 Other [...] aseptically debrided all ten toenails with a nail feeder and curette; pt tolerated well. 11/07/2024 Onychomycosis [...] aseptically debrided all ten toenails with a nail feeder and curette; pt tolerated well. 08/05/2024 Pain [...] DURAN COLINDRES, 08/14/2025 08:00:00 AM, [address] [facility] [address], [place], [address], Insurance Providers Payer Name Payer Address Payer Phone Subscriber Number Group Number Insured Name Patient Relationship to Insured Coverage Start Date Coverage End Date [employer] Medicare [id number] [address] [address] [place] [phone] [id number] March Self - patient is the insured [...]
[2025-07-10 09:39] LABS: Alanine Aminotransferase 45 U/L (0-31); Albumin Level 4.2 g/dL (3.5-5.0); Alkaline Phosphatase 92 U/L (39-117); Anion Gap 12 (12-20); Aspartate Amino Transferase 38 U/L (5-31); Blood Urea Nitrogen 16 mg/dL (9-16); Calcium 9.7 mg/dL (8.4-10.2); Carbon Dioxide 27 mmol/L (22-29); Chloride 105 mmol/L (96-108); Cholesterol 175 mg/dL (<200); Estimated Glomerular Filt Rate > 60; HDL Cholesterol 49 mg/dL (>40); Potassium 3.7 mmol/L (3.3-5.1); Sodium 140 mmol/L (135-145); Total Protein 6.7 g/dL (6.5-8.0); Triglycerides 108 mg/dL (<150)
== END 2025-07-10 08:42 | disposition home or self-care (01) ==
LOC: HO.LAB 08:41
PROVIDERS: Absent Provider Internal Medicine Cardiovascular Disease; PCP Internal Medicine; Visit Provider Internal Medicine
DX: E78.5 Hyperlipidemia, unspecified (principal); I10 Essential (primary) hypertension
CPT/HCPCS: 36415; 80053; 80061; 85025

== ENCOUNTER 2025-07-12 10:35 | Outpatient (AMB) | payer MEDICARE, SELFPAY ==
[2025-07-12 10:54] VITALS: BP 128/62; PULSE 69; RESP 19; TEMP 36.6; O2SAT 95; BMI 30.4
--- NOTE | 2025-07-12 10:54 | A.OFFPC_ITS ---
Vital Signs 07/12/25 10:54 Height 5 ft 2 in Weight 166 lb BMI 30.4 BP 128/62 Blood Pressure Location Lt brachial Position Sitting Respiration 19 Pulse 69 Pulse Source Pulse Oximeter Temp 97.9 F Temp Source Oral Pulse Oximetry (%) 95 Oxygen Delivery Method Room Air Intake Visit Reasons: 2m follow up Intake Note: Pt is here today for 2 months follow up visit. Allergies codeine (CODEINE) Allergy (Intermediate, Verified 07/12/25 11:22) HEADACHES hydrochlorothiazide (HYDROCHLOROTHIAZIDE) Allergy (Intermediate, Verified 07/12/25 11:22) NAUSEA & VOMITING, low K latex (LATEX) Allergy (Intermediate, Verified 07/12/25 11:22) RASH adhesive tape Allergy (Mild, Verified 07/12/25 11:22) Rash empagliflozin (From Jardiance) Adverse Reaction (Intermediate, Verified 07/12/25 16:20) Candidiasis lisinopril (LISINOPRIL) Adverse Reaction (Mild, Verified 07/12/25 11:22) COUGH Medication List - Last Reconciled 07/12/25 by Silvia Reynoso MD amiodarone 200 mg PO DAILY amlodipine 5 mg PO BID apixaban (Eliquis) 5 mg PO BID atorvastatin 40 mg PO DAILY blood pressure kit-extra large As directed cholecalciferol (vitamin D3) 25 mcg PO BEDTIME empagliflozin (Jardiance) 10 mg PO QAM furosemide 40 mg (2 x 20 mg) PO BID hydrochlorothiazide 25 mg PO DAILY ketoconazole 2% 1 appl topical DAILY metoprolol tartrate 12.5 mg (1/2 x 25 mg) PO BID metronidazole 500 mg PO Q12H nystatin (Nystop) 1 appl topical BID PRN oxyquinoline-sod.lauryl sulfat 0.025-0.01 % (Trimo-Agustin Jelly) 1 ea vaginal .2- 3x/wk sertraline 50 mg PO DAILY triamcinolone acetonide 0.1% 1 appl topical BID PRN valsartan 160 mg orally bid Tobacco use date assessed: 07/12/25 Dental Screening Dental Screen Date: 04/03/25 HPI 2m follow up HPI Details PATIENT PRESENTS FOR THE FOLLOW-UP OF WALK-IN VISIT. SHE COMPLAINS OF persistent VAGINAL ITCHING AND DYSURIA BUT NO ABDOMINAL PAIN NAUSEA VOMITING FEVER CHILLS OR BACK PAIN. PATIENT HAD VAGINAL SWAB CONSISTENT WITH BV AND KAREEM. SHE COMPLETED COURSE OF METRONIDAZOLE AND FLUCONAZOLE. She denies any vaginal discharge but reports persistent irritation. Patient has stopped taking Jardiance. Hypertension and CHF are controlled on current medications. [facility] Medical History (Updated 07/12/25 @ 16:21 by Silvia Reynoso MD) Candidiasis Atrial flutter with rapid ventricular response Edema Edema Paroxysmal atrial fibrillation Osteoporosis Uterine prolapse Rectocele Hyperlipidemia Sinus bradycardia Atrial fibrillation HTN (hypertension) Surgical History S/P ablation of atrial flutter History of cholecystectomy Hx of tubal ligation Family History Father CVD (cardiovascular disease) Mother CVD (cardiovascular disease) Diabetes Other Substance use disorder Social History Household Members: Children Housing: House Do you presently have visiting nurse or other home services: No Alcohol intake: unknown Patient Tobacco Use Status: Former Tobacco user Years Smoked: 12 +/- e-Cigarette/Vaping Use: Never Used Second Hand Smoke Exposure: No service: No Current occupational status: retired 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 1. Little interest or pleasure in doing things: not at all 2. Feeling down, depressed, or hopeless: not at all 3. Trouble falling or staying asleep, or sleeping too much: not at all 4. Feeling tired or having little energy: not at all 5. Poor appetite or overeating: not at all 6. Feeling bad about yourself - or that you are a failure or have let yourself or your family down: not at all 7. Trouble concentrating on things, such as reading the newspaper or watching television: not at all 8. Moving or speaking so slowly that other people could have noticed. Or the opposite - being so fidgety or restless that you have been moving around a lot more than usual: not at all 9. Thoughts that you would be better off or of hurting yourself in some way: not at all Total score: 0 Depression Screening Interpretation: Negative Depression Screening Done: Yes Source: Developed by Drs. Lior Francois, Jhoan Jarquin and colleagues, with an educational simone from [employer]. Thrive Questionnaire Date Thrive assessed: 11/23/24 I am a: Patient What is your living situation today?: I have a steady place to live Within the past 12 months, did the food you bought not last and you didn't have the money to get more?: Never true Within the past 12 months, did you worry whether your food would run out before you got money to buy more?: Never true Do you have trouble paying for medicines?: No Do you have trouble getting transportation to medical appointments?: No Do you have trouble paying your heating and electricity bill?: No Do you have trouble taking care of your child, family member or friend?: No Do you have trouble with day-to-day activities such as bathing, preparing meals, shopping, managing finances, etc.?: No Are you currently unemployed and looking for a job?: No Are you interested in more education?: No Please select the resources that you would like help with: None Currently or been in a relationship where the following occur: No concerns reported THRIVE Score: 0 RENETTA-7 AMB Questionnaire RENETTA-7 Date RENETTA - 7 assessed: 11/23/24 Feeling nervous, anxious, or on edge: 0 = Not at all Not being able to stop or control worryin = Not at all Worrying too much about different things: 0 = Not at all Trouble relaxin = Not at all Being so restless that it is hard to sit still: 0 = Not at all Becoming easily annoyed or irritable: 0 = Not at all Feeling afraid as if something awful might happen: 0 = Not at all Total RENETTA-7 score (0-4 normal; 5-9 mild; 10-14 moderate; 15-21 severe): 0 Source: Developed by Drs. Lior Francois, Jhoan Jarquin and colleagues, with an educational simone from [employer]. Review of Systems Const All systems reviewed & are unremarkable except as noted in HPI and below ENT Reports no additional complaints Card Reports no additional complaints Resp Reports no additional complaints GI Reports no additional complaints Reports no additional complaints Physical exam (Primary Care) Vital Signs: Last Vital Signs Temp 97.9 F 07/12/25 10:54 Pulse 69 07/12/25 10:54 Resp 19 07/12/25 10:54 BP 128/62 07/12/25 10:54 Pulse Ox 95 07/12/25 10:54 Oxygen Delivery Method Room Air 07/12/25 10:54 BMI result Body Mass Index 30.4 Tobacco/Smoking Status: Tobacco use Status Tobacco use date assessed 07/12/25 07/12/25 11:26 Patient Tobacco Use Status Former Tobacco user 07/12/25 10:55 Tobacco use type 06/29/25 13:44 e-Cigarette/Vaping Use Never Used 07/12/25 10:55 PHQ-9: PHQ-9 Score PHQ-9: Total score 0 07/12/25 12:07 Depression Screening Interpretation: Negative Thrive Assessment: Date of Thrive Assessment Date Thrive assessed 11/23/24 07/12/25 10:55 Currently or been in a relationship where the following occur: No concerns reported Const General: no acute distress Resp Effort & Inspection: normal respiratory effort Auscultation: diminished lung sounds Cardio Rhythm: regular rhythm Heart sounds: S1 normal heart sound present and S2 normal heart sound present GI Inspection: Yes normal to inspection Palpation (GI): Soft to palpation Percussion: Yes normal to percussion Auscultation: normal bowel sounds Extrem Other: 3+ nonpitting edema bilaterally Results AMB Urinalysis, Automated UA Leukoctes 0 Cleo/uL Last Edit by ECTOR Eng on 07/12/25 12:08 UA Nitrite Negative Last Edit by ECTOR Eng on 07/12/25 12:08 UA Urobilinogen 0.2 mg/dL Last Edit by ECTOR Eng on 07/12/25 12: 08 UA Protein 0 mg/dL Last Edit by ECTOR Eng on 07/12/25 12:08 UA pH 5.5 Last Edit by ECTOR Eng on 07/12/25 12:08 UA Blood 0 Bhavin/uL Last Edit by ECTOR Eng on 07/12/25 12:08 UA Specific [place] 1.015 Last Edit by ECTOR Eng on 07/12/25 12 :08 UA Ketone Negative Last Edit by ECTOR Eng on 07/12/25 12:08 UA Bilirubin 0 mg/dL Last Edit by ECTOR Eng on 07/12/25 12:08 UA Glucose 0 mg/dL Last Edit by ECTOR Eng on 07/12/25 12:08 Results Reviewed Results Reviewed: Laboratory Last Values Urine pH (Auto) 5.5 07/12/25 12:06 Specific [place] (Auto) 1.015 07/12/25 12:06 Urine Protein (Auto) 0 mg/dL 07/12/25 12:06 Glucose (UA)(Auto) 0 mg/dL 07/12/25 12:06 Urine Ketones (Auto) Negative 07/12/25 12:06 Urine Blood (Auto) 0 Bhavin/uL 07/12/25 12:06 Urine Nitrite (Auto) Negative 07/12/25 12:06 Urine Bilirubin (Auto) 0 mg/dL 07/12/25 12:06 Urine Urobilinogen (Auto) 0.2 mg/dL 07/12/25 12:06 Leukocyte Esterase (Auto) 0 Cleo/uL 07/12/25 12:06 Coding Level of Care Code Est Pt Level 4 (99580) Diagnoses Dysuria R30.0 Candidiasis B37.9 Paroxysmal atrial fibrillation I48.0 Edema R60.9 Assessment & Plan Assessment & Plan (1) Dysuria: Code(s): R30.0 - Dysuria Category: Medical Plan: For persistent dysuria check UA and urine culture, (2) Candidiasis: Comment: Complete course of metronidazole and fluconazole 06/2025 Code(s): B37.9 - Candidiasis, unspecified Category: Medical Plan: Patient was advised to use ketoconazole cream on external vulvar area (3) Paroxysmal atrial fibrillation: Code(s): I48.0 - Paroxysmal atrial fibrillation Category: Medical Plan: Continue current medications and Eliquis for anticoagulation (4) Edema: Comment: 2+ lower extremities, on 10 mg of amlodipine Code(s): R60.9 - Edema, unspecified Category: Medical Plan: Patient has been taking 60 mg of furosemide and hydrochlorothiazide was started a week ago by Dr. Angelo. She will follow-up with the Cardiology Orders: Orders AMB Urinalysis Automated Today Z13.9 - Encounter for screening, unspecified UA w Microscopic Today R30.0 - Dysuria Urine Culture Today R30.0 - Dysuria Medications: Changed From valsartan (1/2 x 320 mg) 160 mg orally bid 90 tabs 3RF To valsartan 320 mg PO .qd 90 tabs 3RF Discontinued ketoconazole 2% Discontinued Reason: Doctor's Order 1 appl topical DAILY 60 grams 0RF metronidazole Discontinued Reason: Doctor's Order 500 mg PO Q12H 14 tabs 0RF empagliflozin (Jardiance) Discontinued Reason: Doctor's Order 10 mg PO QAM 30 tabs 5RF
== END 2025-07-12 12:04 | disposition home or self-care (01) ==
LOC: HO.HMCC 10:36
PROVIDERS: PCP Internal Medicine; Visit Provider Internal Medicine
DX: R30.0 Dysuria (principal); B37.9 Candidiasis, unspecified; I48.0 Paroxysmal atrial fibrillation; R60.9 Edema, unspecified; Z13.9 Encounter for screening, unspecified

== ENCOUNTER 2025-07-12 10:35 | Outpatient (REF) | payer MEDICARE, SELFPAY ==
[2025-07-12 13:49] LABS: Appearance Urine Clear; Glucose Urine UA Negative (Negative); PH 5.0 (5.0-9.0); Specific Gravity - Urine 1.010 (1.005-1.025); UMIC TRIGGER UA YES
== END 2025-07-12 10:36 | disposition home or self-care (01) ==
LOC: HO.LNP 10:35
PROVIDERS: PCP Internal Medicine; Visit Provider Internal Medicine
DX: R30.0 Dysuria (principal); I11.0 Hypertensive heart disease with heart failure; I50.9 Heart failure, unspecified; B37.9 Candidiasis, unspecified; I48.0 Paroxysmal atrial fibrillation; R60.9 Edema, unspecified; Z79.899 Other long term (current) drug therapy
CPT/HCPCS: 81001; 81003; 87086; 96127; 99212

== ENCOUNTER 2025-07-20 09:02 | Outpatient (AMB) | payer MEDICARE, SELFPAY ==
--- OUTSIDE RECORDS SUMMARY | 2024-01-29 05:15 | XMS_ITS ---
Author Organization [facility] Address [address] [address] Care Team Providers Care Line Assembler Name Role Phone Silvia Reynoso Primary Care Provider Unavailabl ADOLPH Redd Unavailable [phone] REASON FOR VISIT 3 month f/u Encounters Encounter Location Date Provider Diagnosis [facility] [address] [address] 01/29/2024 ADOLPH HOWARD Plan Of Treatment Next Appt Details Provider Name:ADOLPH HOWARD, 08/14/2025 08:00:00 AM, [address] [address], [place], [address], Progress Notes * TODD MarchDOB:1940 (85 yo F)Acc No.[id number]:01/29/2024 Patient: Ale CAMPOS [place] Provider: Eloise Howard DPM :1940 A ge:83 Y S ex:Female Date:01/29/2024 Address:[address] [place], [place] [id number] Pcp:Silvia Reynoso Subjective: * Chief Complaints: * 1 . 3 month f/u. * Medical History: Objective: * Vitals: Assessment: Plan: * Treatment: * Billing Information: * Visit Code: * Procedure Codes: * Electronic signature of JOSE HOWARD D.P.M on 07/20/2025 at 10:04 AM EDT Sign off status: Pending * Provider: Eloise Howard DPM Date: 0 01/29/2024 Generated for Ulises zaldivar/Alla/Davide on: 1 10:04 AM EDT
--- NOTE | 2025-07-20 09:14 | MHC.OFFVIS ---
Vital Signs 07/20/25 09:16 Height 5 ft 2 in Weight 167 lb 8.821 oz BMI 30.6 BP 130/72 Blood Pressure Location Lt brachial Position Sitting Pulse 56 Intake Visit Reasons: 6m follow up Intake Note: 6 month follow-up with ekg feeling ok but still have high bp readings at home Allergies codeine (CODEINE) Allergy (Intermediate, Verified 07/12/25 11:22) HEADACHES hydrochlorothiazide (HYDROCHLOROTHIAZIDE) Allergy (Intermediate, Verified 07/12/25 11:22) NAUSEA & VOMITING, low K latex (LATEX) Allergy (Intermediate, Verified 07/12/25 11:22) RASH adhesive tape Allergy (Mild, Verified 07/12/25 11:22) Rash empagliflozin (From Jardiance) Adverse Reaction (Intermediate, Verified 07/12/25 16:20) Candidiasis lisinopril (LISINOPRIL) Adverse Reaction (Mild, Verified 07/12/25 11:22) COUGH Medication List - Last Reconciled 07/20/25 by Carson Angelo MD amiodarone 200 mg PO DAILY amlodipine 5 mg PO BID apixaban (Eliquis) 5 mg PO BID atorvastatin 40 mg PO DAILY blood pressure kit-extra large As directed cholecalciferol (vitamin D3) 25 mcg PO BEDTIME furosemide 40 mg (2 x 20 mg) PO BID hydrochlorothiazide 25 mg PO DAILY metoprolol tartrate 12.5 mg (1/2 x 25 mg) PO BID nystatin (Nystop) 1 appl topical BID PRN oxyquinoline-sod.lauryl sulfat 0.025-0.01 % (Trimo-Agustin Jelly) 1 ea vaginal .2-3x/wk sertraline 50 mg PO DAILY triamcinolone acetonide 0.1% 1 appl topical BID PRN valsartan 320 mg PO .qd HPI Comments Details: Laurel comes for follow-up. She has been getting high blood pressure readings on a blood pressure monitor which she bought recently. She is very worried about it. We did start hydrochlorothiazide but notice that she is also on furosemide. Today I would discontinue the hydrochlorothiazide therapy. She has been splitting of valsartan to 160 mg b.i.d. and says a blood pressures been better controlled. She brought her newer blood pressure monitor in today and correlated with her machine and it gives her erroneously higher blood pressure readings on her own machine. Blood pressure today in the office as well optimized. She occasionally feels fluttering checks her pulse since usually regular. She has not had any prolonged episodes No bleeding issues or neurologic events. Denies any prolonged palpitations, lightheadedness, syncope. No orthopnea, PND, leg edema. Does get more tired and short of breath when she does exertional activity. PENDING SALE TO [facility] Medical History (Updated 07/20/25 @ 09:43 by Carson Angelo MD) Atrial flutter with rapid ventricular response Candidiasis Edema Edema Paroxysmal atrial fibrillation Osteoporosis Uterine prolapse Rectocele Hyperlipidemia Sinus bradycardia Atrial fibrillation HTN (hypertension) Surgical History S/P ablation of atrial flutter History of cholecystectomy Hx of tubal ligation Family History Father CVD (cardiovascular disease) Mother CVD (cardiovascular disease) Diabetes Other Substance use disorder Social History Household Members: Children Housing: House Do you presently have visiting nurse or other home services: No Alcohol intake: unknown Patient Tobacco Use Status: Former Tobacco user Years Smoked: 12 +/- e-Cigarette/Vaping Use: Never Used Second Hand Smoke Exposure: No service: No 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 occupational status: 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 Current occupational exposures/hazards: No Cognitive needs: No Hearing needs: No Vision needs: Yes Review of Systems Const Denies chills, Denies fatigue, Denies fever(s), Denies frequent falls, Denies weakness, Denies weight gain and Denies weight loss ENT Denies dizziness Card Denies chest pain, Denies leg edema, Denies lightheadedness, Denies palpitations, Denies dyspnea, Denies dyspnea on exertion, Denies orthopnea and Denies other (loss of consciousness) Resp Denies cough, Denies dyspnea and Denies dyspnea on exertion GI Denies hematochezia and Denies change in stool character Musc Denies abnormal gait, Denies muscle weakness, Denies numbness, Denies radiating pain into limb and Denies tingling Neuro Denies abnormal gait, Denies dizziness, Denies frequent falls, Denies numbness, Denies tingling and Denies weakness Endo Denies fatigue and Denies palpitations Physical Exam Vital Signs: Last Vital Signs Pulse 56 07/20/25 09:16 BP 130/72 07/20/25 09:16 BMI result Body Mass Index 30.6 Const General: cooperative, comfortable, no acute distress, alert and awake Nutritional Appearance: overweight Orientation/consciousness: patient oriented x3 Limitations: no limitations Neck Neck: Yes trachea midline, Yes supple and Yes JVD (Mild abdominal jugular reflux) Resp Effort & Inspection: normal respiratory effort Auscultation: clear to auscultation bilaterally Cardio Jugular venous distension: no JVD Palpation: normal PMI Rate: regular rate Rhythm: regular rhythm Heart sounds: S1 normal heart sound present, S2 normal heart sound present and Other heart sounds present (S4 present) GI Auscultation: normal bowel sounds Skin General skin exam: no rashes or lesions noted Neuro General: patient oriented x3 and no focal motor deficits Extrem General: No clubbing, No cyanosis and Yes edema (2+ bilateral below knee) Psych Appearance: grossly normal Affect: Anxious affect present Office Procedures EKG Details: EKG shows sinus bradycardia with moderate LVH criteria with nonspecific STT wave changes [id number], Complete Assessment & Plan Assessment & Plan (1) Paroxysmal atrial fibrillation: Code(s): I48.0 - Paroxysmal atrial fibrillation Category: Medical Plan: Paroxysmal atrial fibrillation has done well with rhythm control approach and currently on amiodarone therapy. She is concerned about amiodarone therapy but although discussed with her that it is probably doing well good job for her will check her chest x-ray today. Will reduce amiodarone 6 months if she remains in sinus rhythm to 100 mg daily. Continue full oral anticoagulation with Eliquis 5 mg b.i.d.. Quarterly renal function test should be pursued. Stress mitigation strategies and control of anxiety was discussed. Avoidance of stimulants was discussed. (2) HTN (hypertension): Code(s): I10 - Essential (primary) hypertension Category: Medical Qualifiers: Hypertension type: unspecified Qualified Code(s): I10 - Essential (primary) hypertension Plan: Hypertension with spurious high blood pressure recorded in her new blood pressure monitor. Advised her to switch this. Will check in nurse visit in 1-2 weeks time with her other blood pressure machine at home. Otherwise a blood pressure today appears to be well optimized on current therapy. Discontinued hydrochlorothiazide therapy. Continue with valsartan twice a day, amlodipine twice a day as well as Lasix. Will follow up in the clinic in 1-2 weeks for blood pressure check in 6 months with me. Thank you for allowing me to partake in her care Orders: Orders XR chest 2V Today I48.0 - Paroxysmal atrial fibrillation Medications: Discontinued hydrochlorothiazide Discontinued Reason: Doctor's Order 25 mg PO DAILY 30 tabs 5RF Coding Level of Care Code Est Pt Level 4 (31164) Complex EM visit Add On G2211 Diagnoses Paroxysmal atrial fibrillation I48.0 HTN (hypertension) I10 Hypertension type: unspecified CPT Codes EKG - CPT: 04293-[id number], Complete ([id number])
[2025-07-20 09:16] VITALS: BP 130/72; PULSE 56; BMI 30.6
--- OUTSIDE RECORDS SUMMARY | 2025-07-20 10:04 | XMS_ITS | Clinical Summary ---
Author Organization [facility] Address [address] [place] [address] Care Team Providers Care Can Carrier Name Role Phone Unavailable Primary Care Provider [...] Vaccine (1 of 2) 1990 RSV Vaccine 50 years and old er and Patients (1 - 1-dose 75+ series) 2015 COVID-19 Vaccine ( - 2023-2 5 season) 2025 Hepatitis B Vaccines Aged Out No long er eligible based on patient's age to complete this topic
--- OUTSIDE RECORDS SUMMARY | 2025-07-20 10:04 | XMS_ITS | Encounter Summary ---
Author Organization [facility] Address [address] [place] [address] Care Team Providers Care Reforestation Worker Name Role Phone Unavailable Primary Care Provider Unavailabl e Encounter Details Date Type Department Care Team (Late st Contact Info) Description 07/30/2017 Scanned Document [address] [phone] Provider, Generic Social History Tobacco Use Types [...]
--- OUTSIDE RECORDS SUMMARY | 2025-07-20 10:05 | XMS_ITS | Patient Health Record ---
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) Active confirmed Problem Primary hypertension (89414056) Primary hypertension (I10) Active confirmed Vital Signs Heart Rate 70 /min 05/10/2025 Temperature 96.7 degrees Fahrenheit 05/10/2025 Respiratory Rate 16 /min 05/10/2025 Height 61in in 05/10/2025 Weight 166.2 lbs 05/10/2025 BMI 31.4 kg/m2 05/10/2025 Encounters Encounter Location Date Provider Diagnosis [facility] [address] 08/05/2024 ADOLPH COLINDRES Arthritis of left foot M19.072 ; Pain in left toe(s) M79.675 ; Onychomycosis B35.1 ; Pain in right toe(s) M79.674 ; Other specified peripheral vascular diseases I73.89 and Blister of second toe S90.426A [facility] [address] 11/07/2024 ADOLPH COLINDRES Arthritis of left foot M19.072 ; Pain in left toe(s) M79.675 ; Onychomycosis B35.1 ; Pain in right toe(s) M79.674 ; Other specified peripheral vascular diseases I73.89 and Blister of second toe S90.426A [facility] [address] [id number] 02/06/2025 ADOLPH COLINDRES Onychomycosis B35.1 ; Pain in right toe(s) M79.674 and Other specified peripheral vascular diseases I73.89 [facility] [address] [phone] 05/10/2025 ADOLPH COLINDRES Onychomycosis B35.1 ; Pain [...] debrided all ten toenails with a nailer hand and curette; pt tolerated well. 05/10/2025 Onychomycosis [...] debrided all ten toenails with a nailer hand and curette; pt tolerated well. 02/06/2025 [...] debrided all ten toenails with a nailer hand and curette; pt tolerated well. 11/07/2024 [...] debrided all ten toenails with a nailer hand and curette; pt tolerated well. 08/05/2024 [...] DURAN COLINDRES, 08/14/2025 08:00:00 AM, [address] [facility] [address], [place], [address], Insurance Providers Payer Name Payer Address Payer Phone Subscriber Number Group Number Insured Name Patient Relationship to Insured Coverage Start Date Coverage End Date [employer] Medicare [id number] [address] [address] [place] [address] [id number] March Self - patient is the insured Medical (General) History Medical History History ICD Code atrial flutter hypertension peripheral vascular disease hypercholeremia hypokalemia vitamin D deficiency diverticulosis rectocele uterine prolapse osteopenia 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
== END 2025-07-20 09:42 | disposition home or self-care (01) ==
LOC: HO.HCS 09:03
PROVIDERS: PCP Internal Medicine; Visit Provider Internal Medicine Cardiovascular Disease
DX: I48.0 Paroxysmal atrial fibrillation (principal); I10 Essential (primary) hypertension
CPT/HCPCS: 93010; 99214; G2211

== ENCOUNTER 2025-07-20 09:02 | Outpatient (REF) | payer MEDICARE, SELFPAY ==
--- NOTE | ~2025-07-20 | XR_ITS ---
EXAMINATION: XR CHEST 2 VIEWS HISTORY: I48.0 - Paroxysmal atrial fibrillation COMPARISON: Comparison is made with the prior examination dated 11/12/2024. FINDINGS: PA and lateral views of the chest are submitted. The lungs are expanded and clear. There is no pleural effusion, pneumothorax, or pulmonary vascular congestion. The heart is normal in size. There is mild degenerative disc disease of the spine. XR/XR chest 2V IMPRESSION: No acute cardiopulmonary abnormality. Electronically signed by: Lior Valladares MD 07/20/2025 10:21 AM EDT
[2025-07-20 11:29] LABS: Anion Gap 13 (12-20); Blood Urea Nitrogen 19 mg/dL (9-16); Calcium 10.0 mg/dL (8.4-10.2); Carbon Dioxide 30 mmol/L (22-29); Chloride 103 mmol/L (96-108); Estimated Glomerular Filt Rate > 60; Potassium 3.8 mmol/L (3.3-5.1); Sodium 142 mmol/L (135-145)
== END 2025-07-20 09:03 | disposition home or self-care (01) ==
LOC: HO.XRAY 09:02
PROVIDERS: PCP Internal Medicine; Visit Provider Internal Medicine Cardiovascular Disease
DX: I48.0 Paroxysmal atrial fibrillation (principal); R06.09 Other forms of dyspnea; I11.0 Hypertensive heart disease with heart failure; I50.9 Heart failure, unspecified; Z79.01 Long term (current) use of anticoagulants; Z79.899 Other long term (current) drug therapy; Z87.891 Personal history of nicotine dependence
CPT/HCPCS: 36415; 71046; 80048; 93005; 99212

== ENCOUNTER → 2025-07-20 10:08 | Outpatient (BNV) | payer MEDICARE, SELFPAY | PROVIDERS: PCP Internal Medicine; Visit Provider Radiology Diagnostic Radiology | DX: I48.0 Paroxysmal atrial fibrillation (principal) | CPT/HCPCS: 71046 ==

== ENCOUNTER 2025-07-31 13:09 | Outpatient (REF) | payer MEDICARE, SELFPAY ==
--- NOTE | ~2025-07-31 | US_ITS ---
EXAMINATION: US KIDNEY BILATERAL HISTORY: N28.1 - Cyst of kidney, acquired TECHNIQUE: Real-time grayscale ultrasound imaging of the kidneys was performed and images were reviewed. COMPARISON: Comparison is made with the prior examination dated 01/31/2025. FINDINGS: Right kidney: The right kidney measures 10.2 x 3.6 x 4.9 cm. Renal parenchymal echotexture and thickness are normal. There are no masses. There is no hydronephrosis or renal calculi. Left Kidney: The left kidney measures 10.2 x 4.4 x 5.0 cm. Renal parenchymal echotexture and thickness are normal. There is a 10 x 7 x 9 mm cortically-based hypoechoic structure, without change in size from the prior study. This could represent a cyst. There is no hydronephrosis or renal calculi. US/US renal BI IMPRESSION: Stable 10 x 7 x 9 mm possible left renal cyst. Continued follow-up is recommended. Electronically signed by: Lior Valladares MD 07/31/2025 02:07 PM EDT
--- OUTSIDE RECORDS SUMMARY | 2025-07-31 16:46 | XMS_ITS | Encounter Summary ---
Author Organization [facility] Address [address] [place] [address] Care Team Providers Care Interior Surface Insulation Worker Name Role Phone Claudia Zamora DO Primary Care Pro vider Unavailable Zuleima Gallagher MD Primary Care Provider [phone] Encounter Details Date Type Department Care Team Description 09/26/2020 Hospital Medical Records [address] [place] [id number] [facility] Social History Tobacco Use Types Packs/Day [...] on filedocumented in this encounter Care Teams Interior Surface Insulation Worker Relationship Specialty Start Date End Date Claudia Zamora DO PCP - General Internal Medicine 11/26/15 04/22/21 Zuleima Gallagher MD [address] [place] [id number] PCP - General Internal Medicine 04/23/21 documented as of this encounter
--- OUTSIDE RECORDS SUMMARY | 2025-07-31 16:46 | XMS_ITS | Encounter Summary ---
Author Organization [facility] Address [address] [place] [address] Care Team Providers Care Chemical Plant Operator Supervisor Name Role Phone Claudia Zamora DO Primary Care Pro vider Unavailable Zuleima Gallagher MD Primary Care Provider [phone] Encounter Details Date Type Department Care Team Description 09/27/2020 Hospital Medical Records [address] [place] [id number] Carson Angelo MD Social History Tobacco Use [...] on filedocumented in this encounter Care Teams Chemical Plant Operator Supervisor Relationship Specialty Start Date End Date Claudia Zamora DO PCP - General Internal Medicine 11/26/15 04/22/21 Zuleima Gallagher MD [address] [place] [id number] PCP - General Internal Medicine 04/23/21 documented as of this encounter
--- OUTSIDE RECORDS SUMMARY | 2025-07-31 16:46 | XMS_ITS | Encounter Summary ---
Author Organization [facility] [employer] [facility] Address [address] [place] [address] Care Team Providers Care Regional Economic Liaison Name Role Phone Claudia Zamora DO Primary Care Pro vider Unavailable Zuleima Gallagher MD Primary Care Provider [phone] Encounter Details Date Type Department Care Team Description 04/17/2020 Wall Crane Operator Report Medical Records [address] [place] [address] Louann Rodas FNP Social History Tobacco Use [...] filedocumented in this encounter Care Teams Regional Economic Liaison Relationship Specialty Start Date End Date Claudia Zamora DO PCP - General Internal Medicine 11/26/15 04/22/21 Zuleima Gallagher MD [address] [place], [place] [phone] PCP - General Internal Medicine 04/23/21 documented as of this encounter
--- OUTSIDE RECORDS SUMMARY | 2025-07-31 16:46 | XMS_ITS | Encounter Summary ---
Author Organization [facility] Address [address] [place] [address] Care Team Providers Care Oceanologist Name Role Phone Claudia Zamora DO Primary Care Pro vider Unavailable Zuleima Gallagher MD Primary Care Provider [phone] Reason for Visit * Reason Onset Date Comments TEST RESULTS 02/11/2016 Encounter Details Date Type Department Care Team Description 02/11/2016 Telephone Adult Medicine [address] [id number] Claudia Zamora DO TEST RESULTS; Social History Tobacco Use Types Packs/Day Years [...] encounter Miscellaneous Notes * Telephone Encounter - Claudia Mondragon DO - 02/25/2016 1:13 PM EDT Referral to urology placed. * Telephone Encounter - Dagoberto Napier M.A. - 02/13/2016 8:58 AM EDT Pt called back and was advised of results, she will resume lipitor. Pt has never seen urology, please place order (trace blood in urine sample) * Telephone Encounter - Dagoberto Napier M.A. - 02/12/2016 1:46 PM EDT Message left on pt voicemail asking her to call our office back [phone] re test results * Telephone Encounter - Dagoberto Napier M.A. - 02/12/2016 1:46 PM EDT Message copied by DAGOBERTO NAPIER M.A. on ThuFebruary 12, 2016 1:46 PM ------ Message from: CLAUDIA MIRANDA Created: [place] February 10, 2016 6:28 PM Please call patient regarding results pls resume chol meds and also has she ever seen urology for trace blood and bacteria in urine? If not will refer Telephone Information: Mobile Not on file. ------ * Telephone Encounter - Dagoberto Napier M.A. - 02/11/2016 3:23 PM EDT Message left asking pt daughter (ec) to call our office back re test resutls [phone] documented in this encounter Plan of Treatment Not on file documented as of this encounter Visit Diagnoses Not on filedocumented in this encounter Care Teams Oceanologist Relationship Specialty Start Date End Date Claudia Zamora DO PCP - General Internal Medicine 11/26/15 04/22/21 Zuleima Gallagher MD [address] [place] [address] PCP - General Internal Medicine 04/23/21 documented as of this encounter
--- OUTSIDE RECORDS SUMMARY | 2025-07-31 16:46 | XMS_ITS | Encounter Summary ---
Author Organization [facility] Address [address] [place] [address] Care Team Providers Care Ortho Nurse Name Role Phone Claudia Zamora DO Primary Care Pro vider Unavailable Zuleima Gallagher MD Primary Care Provider [phone] Reason for Visit * Reason Onset Date Comments Faxed Refill 11/01/2019 Encounter Details Date Type Department Care Team Description 11/01/2019 Refill Adult Medicine [address] [address] Claudia Zamora DO Faxed Refill Social History [...] on filedocumented in this encounter Care Teams Ortho Nurse Relationship Specialty Start Date End Date Claudia Zamora DO PCP - General Internal Medicine 11/26/15 04/22/21 Zuleima Gallagher MD [address] [place] [address] PCP - General Internal Medicine 04/23/21 documented as of this encounter
--- OUTSIDE RECORDS SUMMARY | 2025-07-31 16:46 | XMS_ITS | Encounter Summary ---
Author Organization [facility] Address [address] [place] [address] Care Team Providers Care Register Of Deeds Name Role Phone Claudia Zamora DO Primary Care Pro vider Unavailable Claudia Zamora DO Primary Care Pro vider Unavailable Zuleima Gallagher MD Primary Care Provider [phone] Encounter Details Date Type Department Care Team Description 09/24/2014 Orders Only [facility] [address] [place] [address] [phone] Name, MD Mario Alberto Social History Tobacco Use Types Packs/Day Years [...] on filedocumented in this encounter Care Teams Register Of Deeds Relationship Specialty Start Date End Date Claudia Zamora DO PCP - General Internal Medicine 11/26/15 04/22/21 Claudia Zamora DO PCP - General 06/01/14 11/25/15 Zuleima Gallagher MD [address] [place], [place] [phone] PCP - General Internal Medicine 04/23/21 documented as of this encounter
--- OUTSIDE RECORDS SUMMARY | 2025-07-31 16:46 | XMS_ITS | Encounter Summary ---
Author Organization [facility] Address [address] [place] [address] Care Team Providers Care Engine Oiler Name Role Phone Claudia Zamora DO Primary Care Pro vider Unavailable Zuleima Gallagher MD Primary Care Provider [phone] Encounter Details Date Type Department Care Team Description 10/11/2020 Dust Control Engineer Report Medical Records [address] [place] [address] Carson Angelo MD Social History Tobacco Use [...] have Coronavirus / COVID-19? Unable to assess 10/12/2020 8:39 AM EST documented as of this encounter Plan of Treatment Not on file documented as of this encounter Visit Diagnoses Not on filedocumented in this encounter Care Teams Engine Oiler Relationship Specialty Start Date End Date Claudia Zamora DO PCP - General Internal Medicine 11/26/15 04/22/21 Zuleima Gallagher MD [address] [place] [address] PCP - General Internal Medicine 04/23/21 documented as of this encounter
--- OUTSIDE RECORDS SUMMARY | 2025-07-31 16:46 | XMS_ITS | Encounter Summary ---
Author Organization [facility] Address [address] [place] [address] Care Team Providers Care Teacher Of The Hearing Impaired Name Role Phone Claudia Zamora DO Primary Care Pro vider Unavailable Zuleima Gallagher MD Primary Care Provider [phone] Reason for Referral * Non NIKHIL - Closed Specialty Diagnoses / Procedures Referred By Nakita rivera Referred To Contact Urology Procedures [place] [address] [place] [address] [address] [address] Referral ID Status Reason Start Date Expiration Date Visits Re quested Visits Authorized [id number] Closed 02/25/2016 02/24/2017 1 1 Encounter Details Date Type Department Care Team Description 02/25/2016 Orders Only Adult Medicine [address] [address] Claudia Zamora DO Social History Tobacco Use [...] on filedocumented in this encounter Care Teams Teacher Of The Hearing Impaired Relationship Specialty Start Date End Date Claudia Zamora DO PCP - General Internal Medicine 11/26/15 04/22/21 Zuleima Gallagher MD [address] [place] [address] PCP - General Internal Medicine 04/23/21 documented as of this encounter
--- OUTSIDE RECORDS SUMMARY | 2025-07-31 16:46 | XMS_ITS | Encounter Summary ---
Author Organization [facility] [employer] [facility] Address [address] [place] [address] Care Team Providers Care Ore Buyer Name Role Phone Claudia Zamora DO Primary Care Pro vider Unavailable Zuleima Gallagher MD Primary Care Provider [phone] Encounter Details Date Type Department Care Team Description 12/14/2020 Orders Only Medical Records [address] [place] [address] Greyson Brock MD [address] [place], [place] [phone] Social History Tobacco Use Types Packs/Day Years [...] on filedocumented in this encounter Care Teams Ore Buyer Relationship Specialty Start Date End Date Claudia Zamora DO PCP - General Internal Medicine 11/26/15 04/22/21 Zuleima Gallagher MD [address] [place] [address] PCP - General Internal Medicine 04/23/21 documented as of this encounter
--- OUTSIDE RECORDS SUMMARY | 2025-07-31 16:46 | XMS_ITS | Encounter Summary ---
Author Organization [facility] Address [address] [place] [address] Care Team Providers Care Superintendent Oil Well Services Name Role Phone Claudia Zamora DO Primary Care Pro vider Unavailable Zuleima Gallagher MD Primary Care Provider [phone] Encounter Details Date Type Department Care Team Description 02/13/2021 Lithographed Plate Inspector Report Medical Records [address] [place] [address] Gavi Howard DPM Social History Tobacco Use [...] on filedocumented in this encounter Care Teams Superintendent Oil Well Services Relationship Specialty Start Date End Date Claudia Zamora DO PCP - General Internal Medicine 11/26/15 04/22/21 Zuleima Gallagher MD [address] [place] [id number] PCP - General Internal Medicine 04/23/21 documented as of this encounter
--- OUTSIDE RECORDS SUMMARY | 2025-07-31 16:46 | XMS_ITS | Encounter Summary ---
Author Organization [facility] [employer] [facility] Address [address] [place] [address] Care Team Providers Care Affiliate Marketing Coordinator Name Role Phone Cluadia Zamora DO Primary Care Pro vider Unavailable Zuleima Gallagher MD Primary Care Provider [phone] Encounter Details Date Type Department Care Team Description 07/31/2017 Hospital Medical Records [address] [place] [address] Carson Angelo MD Social History Tobacco Use [...] on filedocumented in this encounter Care Teams Affiliate Marketing Coordinator Relationship Specialty Start Date End Date Claudia Zamora DO PCP - General Internal Medicine 11/26/15 04/22/21 Zuleima Gallagher MD [address] [place] [address] [phone] PCP - General Internal Medicine 04/23/21 documented as of this encounter
--- OUTSIDE RECORDS SUMMARY | 2025-07-31 16:46 | XMS_ITS | Encounter Summary ---
Author Organization [facility] Address [address] [place] [address] Care Team Providers Care Handbag Operator Name Role Phone Claudia Zamora DO Primary Care Pro vider Unavailable Zuleima Gallagher MD Primary Care Provider [phone] Reason for Visit * Reason Onset Date Comments Ekg Monitor Tech Feedback 05/25/2018 Dr. Rafa mao Encounter Details Date Type Department Care Team Description 05/25/2018 Telephone Adult Medicine [address] [address] Claudia Zamora DO Ekg Monitor Tech Feedback (Dr. Rafa Rock) Social History Tobacco Use Types Packs/Day Years [...] * Telephone Encounter - Shreya Cuellar - 05/25/2018 1:23 PM EDT Date of Submission 05/25/2018 Referral ID [id number] Referring Provider Name CLAUDIA ALEXANDER [facility] [id number] Patient Details Insurance Details Name Laurel Brooks (Subscriber) Birthdate 1940 Group Number [id number] Plan Description HMO-AARP MEDICARECOMPLETE PLAN 2 (HMO) Effective - Term Dates 10/05/2017 - - [place] [facility] [place] [id number] Referred To Provider Referral Details Name RAFA ROCK Address [address] [place] [id number] [id number] Referral Dates 05/25/2018 - 11/21/2018 Number of Visits 6 Diagnosis Code(s) H26.9 Unspecified cataract * Telephone Encounter - Sarah Wheeler - 05/25/2018 12:57 PM EDT What insurance does the patient have today? aarp Effective 07/05/09: BCBS will not retro referral requests over 90 days. If request is for this please instruct patient to call the 800# on their insurance card to appeal. Do not submit a request. Referrals cannot be processed if the insurance is not accurate. If the insurance listed above in red is NO BILLING INFORMATION FOUND FOR THIS ENCOUTNER The patients correct insurance must be obtained and registered in [facility] or their referral can not be processed. Is this a retro request? NO. If yes for what date of service do you need the retro referral? N/A Who is calling to request this referral? The pt If the caller is not the patient, what is their name? N/A Ask the patient WHO referred them to this specialty: Patient self referred FIRST and LAST NAME of SPECIALIST PATIENT is seeing: Dr Collins Npi [phone] What specialty is this? Eye exam DIAGNOSIS Patient is being seen for (Not a body part or a procedure): cataract Have you seen this SPECIALIST for this PROBLEM/DX before?YES If YES, when:2013 Have you checked REVIEW or the APPT DESK to see if this referral has already been done or has visits left? YES Is this visit:Follow Up Address of Specialist:[facility] [place] [address] Phone # of Specialist:[phone] Fax #: (if applicable):[phone] Does patient have an appointment scheduled?: YES Date of appointment- (including a retro-request): 05/25/2018 Is this appointment related to: Not MVA, WC or Surgery related documented in this encounter Plan of Treatment Not on file documented as of this encounter Visit Diagnoses Not on filedocumented in this encounter Care Teams Handbag Operator Relationship Specialty Start Date End Date Claudia Zamora DO PCP - General Internal Medicine 11/26/15 04/22/21 Zuleima Gallagher MD [address] [place] [address] PCP - General Internal Medicine 04/23/21 documented as of this encounter
--- OUTSIDE RECORDS SUMMARY | 2025-07-31 16:46 | XMS_ITS | Encounter Summary ---
Author Organization [facility] Address [address] [place] [address] Care Team Providers Care Chemical Laboratory Chief Name Role Phone Claudia Zamora DO Primary Care Pro vider Unavailable Zuleima Gallagher MD Primary Care Provider [phone] Reason for Visit * Reason Onset Date Comments Sales Engineer Engineered Products Feedback 07/24/2017 PVC- ECG Encounter Details Date Type Department Care Team Description 07/24/2017 Telephone Adult Medicine [address] [address] Annetta Hsieh MD Sales Engineer Engineered Products Feedback (PVC- ECG) Social History Tobacco Use [...] 07/24/2017 9:40 AM EDT Order faxed to [facility] [phone]. Notification letter mailed to patient. Office will contact patient to book appointment. documented in this encounter Plan of Treatment Not on file documented as of this encounter Visit Diagnoses Not on filedocumented in this encounter Care Teams Chemical Laboratory Chief Relationship Specialty Start Date End Date Claudia Zamora DO PCP - General Internal Medicine 11/26/15 04/22/21 Zuleima Gallagher MD [address] [place] [address] PCP - General Internal Medicine 04/23/21 documented as of this encounter
--- OUTSIDE RECORDS SUMMARY | 2025-07-31 16:46 | XMS_ITS | Encounter Summary ---
Author Organization [facility] Address [address] [place] [address] Care Team Providers Care Sheet Rock Finisher Name Role Phone Claudia Zamora DO Primary Care Pro vider Unavailable Zuleima Gallagher MD Primary Care Provider [phone] Encounter Details Date Type Department Care Team Description 08/02/2018 Orders Only Adult Medicine [address] [address] Claudia Zamora DO Elevated fasting glucose (Primary Dx) Social History Tobacco Use Types Packs/Day Years [...] documented as of this encounter Results * HEMOGLOBIN A1C (08/03/2018 12:21 PM EDT) Glycosylated Hemoglobin A1C 5.5 4.0 - 6.0 % 08/03/2018 1:00 PM EDT [facility] Comment: HbA1C VALUES MAY NOT ACCURATELY REFLECT MEAN BLOOD GLUCOSE IN PATIENTS WITH HEMOGLOBIN VARIANTS SUCH HbF, HbS. 08/03/2018 12:2 1 PM EDT 08/03/2018 12:22 PM EDT Claudia Mondragon DO LAB [facility] [address] [facility] documented in this encounter Visit Diagnoses Diagnosis Elevated fasting glucose- Primary Impaired fasting glucose documented in this encounter Care Teams Sheet Rock Finisher Relationship Specialty Start Date End Date Claudia Zamora DO PCP - General Internal Medicine 11/26/15 04/22/21 Zuleima Gallagher MD [address] [place] [address] PCP - General Internal Medicine 04/23/21 documented as of this encounter
--- OUTSIDE RECORDS SUMMARY | 2025-07-31 16:46 | XMS_ITS | Encounter Summary ---
Author Organization [facility] Address [address] [place] [address] Care Team Providers Care Cathode Ray Tube Assembler Name Role Phone Zuleima Gallagher MD Primary Care Provider Reason for Visit * Reason Onset Date Comments refill request 08/07/2021 Encounter Details Date Type Department Care Team Description 08/07/2021 Refill Respiratory and Diabetes Medicaid/ACO Pharmacist [address] [place] [address] Michela Mccauley, Pharm.D [address] [place] [address] refill request Social History Tobacco Use Types [...] following medications. Lluvia LovingD., BCACP Clinical Pharmacist [facility] [email or web address] Office: Wednesdays [phone], Fridays [phone], (other days) documented in this encounter Plan of Treatment Not on file documented as of this encounter Visit Diagnoses Not on filedocumented in this encounter Care Teams Cathode Ray Tube Assembler Relationship Specialty Start Date End Date Zuleima Gallagher MD [address] [place] [address] PCP - General Internal Medicine 04/23/21 documented as of this encounter
--- OUTSIDE RECORDS SUMMARY | 2025-07-31 16:46 | XMS_ITS | Encounter Summary ---
Author Organization [facility] [employer] [facility] Address [address] [place] [address] Care Team Providers Care Machining Department Supervisor Name Role Phone Claudia Zamora DO Primary Care Pro vider Unavailable Zuleima Gallagher MD Primary Care Provider [phone] Encounter Details Date Type Department Care Team Description 09/01/2017 Bookkeeper Report Medical Records [address] [place] [address] Louann Rodas FNP Social History Tobacco Use [...] on filedocumented in this encounter Care Teams Machining Department Supervisor Relationship Specialty Start Date End Date Claudia Zamora DO PCP - General Internal Medicine 11/26/15 04/22/21 Zuleima Gallagher MD [address] [place] [id number] PCP - General Internal Medicine 04/23/21 documented as of this encounter
--- OUTSIDE RECORDS SUMMARY | 2025-07-31 16:46 | XMS_ITS | Encounter Summary ---
Author Organization [facility] [employer] [facility] Address [address] [place] [address] Care Team Providers Care Logistics System Engineer Name Role Phone Claudia Zamora DO Primary Care Pro vider Unavailable Zuleima Gallagher MD Primary Care Provider [phone] Encounter Details Date Type Department Care Team Description 07/11/2019 Dock Operations Supervisor Report Medical Records [address] [place] [address] Carson Angelo MD Social History Tobacco Use [...] on filedocumented in this encounter Care Teams Logistics System Engineer Relationship Specialty Start Date End Date Claudia Zamora DO PCP - General Internal Medicine 11/26/15 04/22/21 Zuleima Gallagher MD [address] [place], [place] [phone] PCP - General Internal Medicine 04/23/21 documented as of this encounter
--- OUTSIDE RECORDS SUMMARY | 2025-07-31 16:46 | XMS_ITS | Encounter Summary ---
Author Organization [facility] [employer] [facility] Address [address] [place] [address] Care Team Providers Care Supervisor Cigarette Making Department Name Role Phone Claudia Zamora DO Primary Care Pro vider Unavailable Zuleima Gallagher MD Primary Care Provider [phone] Encounter Details Date Type Department Care Team Description 08/23/2019 Placement Specialist Report Medical Records [address] [place] [address] Carson Angelo MD Social History Tobacco Use [...] on filedocumented in this encounter Care Teams Supervisor Cigarette Making Department Relationship Specialty Start Date End Date Claudia Zamora DO PCP - General Internal Medicine 11/26/15 04/22/21 Zuleima Gallagher MD [address] [place], [place] [phone] PCP - General Internal Medicine 04/23/21 documented as of this encounter
--- OUTSIDE RECORDS SUMMARY | 2025-07-31 16:46 | XMS_ITS | Encounter Summary ---
Author Organization [facility] Address [address] [place] [address] Care Team Providers Care Air Quality Engineer Name Role Phone Claudia Zamora DO Primary Care Pro vider Unavailable Zuleima Gallagher MD Primary Care Provider [phone] Reason for Visit * Reason Onset Date Comments medication problems 10/25/2018 Encounter Details Date Type Department Care Team Description 10/25/2018 Telephone Adult Medicine [address] [id number] Claudia Zamora DO medication problems Social History [...] on filedocumented in this encounter Care Teams Air Quality Engineer Relationship Specialty Start Date End Date Claudia Zamora DO PCP - General Internal Medicine 11/26/15 04/22/21 Zuleima Gallagher MD [address] [place] [address] PCP - General Internal Medicine 04/23/21 documented as of this encounter
--- OUTSIDE RECORDS SUMMARY | 2025-07-31 16:46 | XMS_ITS | Encounter Summary ---
Author Organization [facility] Address [address] [place] [address] Care Team Providers Care Lamination Assembler Name Role Phone DeegersonClaudia Mcnally DO Primary Care Pro vider Unavailable Zuleima Gallagher MD Primary Care Provider [phone] Reason for Visit * Reason Comments E-prescribe Rx Request Encounter Details Date Type Department Care Team Description 09/03/2018 Refill Adult Medicine [address] [phone] Zuleima Gallagher MD [address] [place] [address] [phone] E-prescribe Rx Request Social History Tobacco Use [...] Telephone Encounter - Tamika Nuñez M.A. - 09/06/2018 9:19 AM EST Lab Results Component Value Date NA 139 07/13/2018 K 4.2 07/13/2018 CO2 26.3 07/13/2018 CL 101 07/13/2018 BUN 16 07/13/2018 CREAT 0.7 07/13/2018 GLU 126 07/13/2018 CA 9.7 07/13/2018 GFR > 60 07/13/2018 * Telephone Encounter - Darcy Jaime - 09/03/2018 7:27 AM EST Patient would like script to be: E-PRESCRIBED/FAXED TO PHARMACY WHEN WAS THE PATIENT'S LAST APPOINTMENT IN ADULT MEDICINE? 07/22/18 WHEN WAS THE LAST TIME THE PATIENT SAW THEIR PCP? 07/13/18 Does patient have an upcoming appointment? No-patient refused appointment, will call back to book appointment (THE MEDICATION REQUESTED IS ON THE MED [...] on filedocumented in this encounter Care Teams Lamination Assembler Relationship Specialty Start Date End Date Claudia Zamora DO PCP - General Internal Medicine 11/26/15 04/22/21 Zuleima Gallagher MD [address] [place] [address] PCP - General Internal Medicine 04/23/21 documented as of this encounter
--- OUTSIDE RECORDS SUMMARY | 2025-07-31 16:46 | XMS_ITS | Encounter Summary ---
Author Organization [facility] Address [address] [place] [address] Care Team Providers Care Pmo Analyst Name Role Phone Claudia Zamora DO Primary Care Pro vider Unavailable Zuleima Gallagher MD Primary Care Provider [phone] Encounter Details Date Type Department Care Team Description 11/01/2020 Release of Information Medical Records [address] [place] [address] Abstract, Provider Social History Tobacco Use Types [...] on filedocumented in this encounter Care Teams Pmo Analyst Relationship Specialty Start Date End Date Claudia Zamora DO PCP - General Internal Medicine 11/26/15 04/22/21 Zuleima Gallagher MD [address] [place] [address] PCP - General Internal Medicine 04/23/21 documented as of this encounter
--- OUTSIDE RECORDS SUMMARY | 2025-07-31 16:46 | XMS_ITS | Encounter Summary ---
Author Organization [facility] [employer] [facility] Address [address] [place] [address] Care Team Providers Care Validation Engineer Name Role Phone Zuleima Gallagher MD Primary Care Provider [phone] Encounter Details Date Type Department Care Team Description 08/16/2021 Workers Compensation Consultant Report Medical Records [address] [place] [address] Gavi Howard DPM Social History Tobacco Use [...] on filedocumented in this encounter Care Teams Validation Engineer Relationship Specialty Start Date End Date Zuleima Gallagher MD [address] [place] [address] PCP - General Internal Medicine 04/23/21 documented as of this encounter
--- OUTSIDE RECORDS SUMMARY | 2025-07-31 16:46 | XMS_ITS | Encounter Summary ---
Author Organization [facility] Address [address] [place] [address] Care Team Providers Care Bilingual Branch Manager Name Role Phone Claudia Zamora DO Primary Care Pro vider Unavailable Zuleima Gallagher MD Primary Care Provider [phone] Encounter Details Date Type Department Care Team Description 07/31/2018 Pt. Non Urgent Medic al Question Adult Medicine [address] [address] Claudia Zamora DO Social History Tobacco Use [...] M.A. - 08/02/2018 1:28 PM EDTFrom: Laurel Todd To: Claudia Mondragon DO Sent: 07/31/2018 4:18 PM EDT Subject: Test Results-Urine Still blood in my urine? What is the staph results mean? documented in this encounter Plan of Treatment Not on file documented as of this encounter Visit Diagnoses Not on filedocumented in this encounter Care Teams Bilingual Branch Manager Relationship Specialty Start Date End Date Claudia Zamora DO PCP - General Internal Medicine 11/26/15 04/22/21 Zuleima Gallagher MD [address] [place] [address] PCP - General Internal Medicine 04/23/21 documented as of this encounter
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
--- OUTSIDE RECORDS SUMMARY | 2025-07-31 16:46 | XMS_ITS | Encounter Summary ---
Author Organization [facility] Address [address] [place] [address] Care Team Providers Care Oil Pipe Inspector Helper Name Role Phone Name, Mario Alberto GLOVER Primary Care Provider Unavailabl e Claudia Zamora DO Primary Care Pro vider Unavailable Claudia Zamora DO Primary Care Pro vider Unavailable Zuleima Gallagher MD Primary Care Provider Encounter Details Date Type Department Care Team Description 05/23/2014 Orders Only Adult Medicine [address] [address] Maria Teresa Cabrera PA-C Abnormal stress ECG with treadmill (Primary Dx); Abnormal ECG Social History Tobacco Use Types Packs/Day Years [...] as of this encounter Plan of Treatment Scheduled Orders Name Type Priority Associated Diagnoses Orde r Schedule ECG MONITOR/24 HRS, REVIEW/INTERP Cardiology Routine Abnormal stress ECG with treadmill Abnormal ECG Expected: 05/23/2014, Expires: 05/23/2015 documented as of this encounter Visit Diagnoses Diagnosis Abnormal stress ECG with treadmill- Primary Other nonspecific abnormal cardiovascular system function study Abnormal ECG Nonspecific abnormal electrocardiogram (ECG) (EKG) documented in this encounter Care Teams Oil Pipe Inspector Helper Relationship Specialty Start Date End Date Name, MD Mario Alberto PCP - General 10/13/07 05/31/14 Claudia Zamora DO PCP - General Internal Medicine 11/26/15 04/22/21 Claudia Zamora DO PCP - General 06/01/14 11/25/15 Zuleima Gallagher MD [address] [place] [address] [id number] PCP - General Internal Medicine 04/23/21 documented as of this encounter
--- OUTSIDE RECORDS SUMMARY | 2025-07-31 16:46 | XMS_ITS | Encounter Summary ---
Author Organization [facility] Address [address] [place] [address] Care Team Providers Care Program Attendant Name Role Phone Claudia Zamora DO Primary Care Pro vider Unavailable Zuleima Gallagher MD Primary Care Provider [phone] Encounter Details Date Type Department Care Team Description 05/07/2018 Medical Office Scheduler Report Medical Records [address] [place] [address] Gasper Gordon MD Social History Tobacco Use [...] on filedocumented in this encounter Care Teams Program Attendant Relationship Specialty Start Date End Date Claudia Zamora DO PCP - General Internal Medicine 11/26/15 04/22/21 Zuleima Gallagher MD [address] [place], [place] [phone] PCP - General Internal Medicine 04/23/21 documented as of this encounter
--- OUTSIDE RECORDS SUMMARY | 2025-07-31 16:46 | XMS_ITS | Encounter Summary ---
Author Organization [facility] Address [address] [place] [address] Care Team Providers Care Master Automotive Glass Technician Name Role Phone Claudia Zamora DO Primary Care Pro vider Unavailable Zuleima Gallagher MD Primary Care Provider [phone] Reason for Referral * Non NIKHIL (Routine) - Authorized/Booked Specialty Diagnoses / Procedures Referred By Controsenda rivera Referred To Contact Dermatology Procedures REFERRAL TO DERMATOLOGY Dari Goodman MD [address] [place] [address] Derm/[place] [address] [place] [address] Referral ID Status Reason Start Date Expiration Date V isits Requested Visits Authorized [id number] Authorized/B ooked 04/06/2020 04/06/2021 1 1 Encounter Details Date Type Department Care Team Description 04/06/2020 Orders Only Adult Medicine B - [place] [address] [place] [address] Dari Goodman MD Social History Tobacco Use [...] on filedocumented in this encounter Care Teams Master Automotive Glass Technician Relationship Specialty Start Date End Date Claudia Zamora DO PCP - General Internal Medicine 11/26/15 04/22/21 Zuleima Gallagher MD [address] [place] [address] [id number] PCP - General Internal Medicine 04/23/21 documented as of this encounter
--- OUTSIDE RECORDS SUMMARY | 2025-07-31 16:46 | XMS_ITS | Encounter Summary ---
Author Organization [facility] [facility] Address [address] [place] [address] Care Team Providers Care Indian Trader Name Role Phone Claudia Zamora DO Primary Care Pro vider Unavailable Zuleima Gallagher MD Primary Care Provider [phone] Encounter Details Date Type Department Care Team Description 07/25/2019 Old Medical Records Medical Records [address] [place] [address] Abstract, Provider Social History Tobacco Use Types [...] on filedocumented in this encounter Care Teams Indian Trader Relationship Specialty Start Date End Date Claudia Zamora DO PCP - General Internal Medicine 11/26/15 04/22/21 Zuleima Gallagher MD [address] [place] [address] [phone] PCP - General Internal Medicine 04/23/21 documented as of this encounter
--- OUTSIDE RECORDS SUMMARY | 2025-07-31 16:46 | XMS_ITS | Encounter Summary ---
Author Organization [facility] Address [address] [place] [address] Care Team Providers Care Pit Slagman Name Role Phone Claudia Zamora DO Primary Care Pro vider Unavailable Zuleima Gallagher MD Primary Care Provider [phone] Reason for Visit * Reason Comments E-prescribe Rx Request Encounter Details Date Type Department Care Team Description 03/23/2019 Refill Adult Medicine [address] [address] Maria Teresa Cabrera PA-C E-prescribe Rx Request [...] on filedocumented in this encounter Care Teams Pit Slagman Relationship Specialty Start Date End Date Claudia Zamora DO PCP - General Internal Medicine 11/26/15 04/22/21 Zuleima Gallagher MD [address] [place] [address] PCP - General Internal Medicine 04/23/21 documented as of this encounter
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
--- OUTSIDE RECORDS SUMMARY | 2025-07-31 16:46 | XMS_ITS | Encounter Summary ---
Author Organization [facility] Address [address] [place] [address] Care Team Providers Care Stacker Straightener Name Role Phone Claudia Zamora DO Primary Care Pro vider Unavailable Zuleima Gallagher MD Primary Care Provider [phone] Reason for Visit * Reason Comments E-prescribe Rx Request Encounter Details Date Type Department Care Team Description 09/03/2018 Refill Adult Medicine [address] [address] Maria Teresa Cabrera PA-C E-prescribe Rx Request [...] > 60 07/13/2018 * Telephone Encounter - Darcylillian Jaime - 09/03/2018 7:26 AM EST Patient would like script to [...] on filedocumented in this encounter Care Teams Stacker Straightener Relationship Specialty Start Date End Date Claudia Zamora DO PCP - General Internal Medicine 11/26/15 04/22/21 Zuleima Gallaghre MD [address] [place] [address] PCP - General Internal Medicine 04/23/21 documented as of this encounter
--- OUTSIDE RECORDS SUMMARY | 2025-07-31 16:46 | XMS_ITS | Encounter Summary ---
Author Organization [facility] Address [address] [place] [address] Care Team Providers Care Asbestos Textile Supervisor Name Role Phone Claudia Zamora DO Primary Care Pro vider Unavailable Zuleima Gallagher MD Primary Care Provider [phone] Encounter Details Date Type Department Care Team Description 07/20/2018 Orders Only Adult Medicine [address] [id number] Claudia Zamora DO Social History Tobacco Use [...] on filedocumented in this encounter Care Teams Asbestos Textile Supervisor Relationship Specialty Start Date End Date Claudia Zamora DO PCP - General Internal Medicine 11/26/15 04/22/21 Zuleima Gallagher MD [address] [place] [address] [phone] PCP - General Internal Medicine 04/23/21 documented as of this encounter
--- OUTSIDE RECORDS SUMMARY | 2025-07-31 16:46 | XMS_ITS | Encounter Summary ---
Author Organization [facility] Address [address] [place] [address] Care Team Providers Care Supervisor Edging Name Role Phone Zuleima Gallagher MD Primary Care Provider [phone] Encounter Details Date Type Department Care Team Description 05/16/2021 Grizzly Worker Report Medical Records [address] [place] [address] Gavi Howard DPM Social History Tobacco Use [...] have Coronavirus / COVID-19? No / Unsure 05/03/2021 7:47 AM EDT documented as of this encounter Plan of Treatment Not on file documented as of this encounter Visit Diagnoses Not on filedocumented in this encounter Care Teams Supervisor Edging Relationship Specialty Start Date End Date Zuleima Gallagher MD [address] [place] [address] PCP - General Internal Medicine 04/23/21 documented as of this encounter
--- OUTSIDE RECORDS SUMMARY | 2025-07-31 16:46 | XMS_ITS | Encounter Summary ---
Author Organization [facility] Address [address] [place] [address] Care Team Providers Care Plisse Machine Operator Name Role Phone Zuleima Gallagher MD Primary Care Provider [phone] Reason for Visit * Reason Onset Date Comments REFERRAL 05/21/2021 Encounter Details Date Type Department Care Team Description 05/21/2021 Telephone Gastroenterology - [place] [address] [facility] [address] [place] [address] Ho Grant PA-C REFERRAL Social [...] 1:23 PM EDT ----- Message from Sandra Mendoza PA-C sent at 06/04/2021 12:28 PM EDT ----- Please let patient know biopsy is benign * Telephone Encounter - Nanci Wood - 05/28/2021 8:49 AM EDT Pls call pt to schedule after 2:30 PM [phone] * Telephone Encounter - Yazan Monroy - 05/21/2021 1:16 PM EDT 1st call to patient; Phoned patient to schedule follow-up for changes in Sx's. Left message on voicemail asking patient to call and schedule. documented in this encounter Plan of Treatment Not on file documented as of this encounter Visit Diagnoses Not on filedocumented in this encounter Care Teams Plisse Machine Operator Relationship Specialty Start Date End Date Zuleima Gallagher MD [address] [place] [address] PCP - General Internal Medicine 04/23/21 documented as of this encounter
--- OUTSIDE RECORDS SUMMARY | 2025-07-31 16:46 | XMS_ITS | Encounter Summary ---
Author Organization [facility] Address [address] [place] [address] Care Team Providers Care Resource Room Special Education Teacher Name Role Phone Claudia Zamora DO Primary Care Pro vider Unavailable Zuleima Gallagher MD Primary Care Provider [phone] Reason for Referral * EXTERNAL (Routine) - Authorized/Booked Specialty Diagnoses / Procedures Referred By Nakita rivera Referred To Contact Gastroenterology Diagnoses Hemorrhoids, unspecified hemorrhoid type Procedures REFERRAL TO COLORECTAL SURGERY Claudia Zamora DO [address] [place] [address] Myra Ga MD [address] [place] [address] [place] [address] Referral ID Status Reason Start Date Expiration Date V isits Requested Visits Authorized SEE NOTE Authorized/B ooked 12/06/2018 03/09/2019 1 1 Encounter Details Date Type Department Care Team Description 12/06/2018 Orders Only Adult Medicine [address] [address] Claudia Zamora DO Hemorrhoids, unspecified hemorrhoid type (Primary Dx) Social History Tobacco Use Types [...] as of this encounter Visit Diagnoses Diagnosis Hemorrhoids, unspecified hemorrhoid type- Primary documented in this encounter Care Teams Resource Room Special Education Teacher Relationship Specialty Start Date End Date Claudia Zamora DO PCP - General Internal Medicine 11/26/15 04/22/21 Zuleima Gallagher MD [address] [place] [address] PCP - General Internal Medicine 04/23/21 documented as of this encounter
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
--- OUTSIDE RECORDS SUMMARY | 2025-07-31 16:46 | XMS_ITS | Clinical Summary ---
Author Organization [facility] Address [address] [place] [address] Care Team Providers Care Supervisor Rod Placing Name Role Phone Zuleima Gallagher MD Primary Care Provider Allergies Active Allergy Reactions Severity Noted Date [...] 58 07/25/2021 9:19 AM EDT Temperature 36.5 C (97.7 F) 07/25/2021 9:19 AM EDT Respiratory Rate 16 07/25/2021 9:19 AM EDT [...] 10/20/2021 10/20/2020, 07/07, 07/28/2018, Additional history exists BMI CHECK/ADVISE 10/05/2024 06/05/2021, 06/2021, 10/09/2020, Additional history exists Covid-19 Vaccine (3 - 2022-2 4 season) 2025 02/27/2021, 01/28/2021 INFLUENZA (#1) 2025 08/28/2020, 07/06, 06/15/2018, Additional history exists CHOLESTEROL SCREENING 06/05/2026 06/05/2021 , 04/09/2020, 11/02/2019, Additional history exists DTAP/TDAP/TD (2 - Td or Tdap) 01/06/2028 (Exception), 02/05/2016, 05/01/2010 BONE DENSITY SCREENING 10/24/2029 10/24/2014, 2009 PNEUMOCOCCAL VACCINE Completed 02/05/2016, 12/20/19 10 Care Teams Supervisor Rod Placing Relationship Specialty Start Date End Date Zuleima Gallagher MD [address] [place] [address] PCP - General Internal Medicine 04/23/21
--- OUTSIDE RECORDS SUMMARY | 2025-07-31 16:46 | XMS_ITS | Encounter Summary ---
Author Organization [facility] Address [address] [place] [address] Care Team Providers Care Roller Pneumatic Name Role Phone Zuleima Gallagher MD Primary Care Provider [phone] Encounter Details Date Type Department Care Team Description 05/29/2021 Fry Cook Report Medical Records [address] [place] [address] Carson Angelo MD Social History Tobacco Use [...] on filedocumented in this encounter Care Teams Roller Pneumatic Relationship Specialty Start Date End Date Zuleima Gallagher MD [address] [place] [address] PCP - General Internal Medicine 04/23/21 documented as of this encounter
--- OUTSIDE RECORDS SUMMARY | 2025-07-31 16:47 | XMS_ITS | Patient Health Record ---
Author Organization [facility] Address [address] [facility] [address] [place] [address] Care Team Providers Care Registered Route Associate Name Role Phone Silvia Reynoso Primary Care Provider ADOLPH Fernández Unavailable [phone] Allergies Allergen (clinical drug ingredient) Drug/Non Drug [...] Status Risk Notes Problem Peripheral vascular disease (219306158) Other specified peripheral vascular diseases (I73.89) Active confirmed Problem Arthritis of left foot (953059134539890 9) 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) Active confirmed Problem Primary hypertension (55879593) Primary hypertension (I10) Active confirmed Vital Signs Heart Rate 70 /min 05/10/2025 Temperature 96.7 degrees Fahrenheit 05/10/2025 Respiratory Rate 16 /min 05/10/2025 Height 61in in 05/10/2025 Weight 166.2 lbs 05/10/2025 BMI 31.4 kg/m2 05/10/2025 Encounters Encounter Location Date Provider Diagnosis [facility] [address] 08/05/2024 ADOLPH COLINDRES Arthritis of left foot M19.072 ; Pain in left toe(s) M79.675 ; Onychomycosis B35.1 ; Pain in right toe(s) M79.674 ; Other specified peripheral vascular diseases I73.89 and Blister of second toe S90.426A [facility] [address] 11/07/2024 ADOLPH COLINDRES Arthritis of left foot M19.072 ; Pain in left toe(s) M79.675 ; Onychomycosis B35.1 ; Pain in right toe(s) M79.674 ; Other specified peripheral vascular diseases I73.89 and Blister of second toe S90.426A [facility] [address] [address] 02/06/2025 ADOLPH COLINDRES Onychomycosis B35.1 ; Pain in right toe(s) M79.674 and Other specified peripheral vascular diseases I73.89 [facility] [address] [address] 05/10/2025 ADOLPH COLINDRES Onychomycosis B35.1 ; Pain [...] aseptically debrided all ten toenails with a paper box cutter and curette; pt tolerated well. 05/10/2025 [...] aseptically debrided all ten toenails with a paper box cutter and curette; pt tolerated well. 02/06/2025 [...] aseptically debrided all ten toenails with a paper box cutter and curette; pt tolerated well. 11/07/2024 [...] aseptically debrided all ten toenails with a paper box cutter and curette; pt tolerated well. 08/05/2024 [...] DURAN COLINDRES, 08/14/2025 08:00:00 AM, [address] [facility] [address], [place], [address], Insurance Providers Payer Name Payer Address Payer Phone Subscriber Number Group Number Insured Name Patient Relationship to Insured Coverage Start Date Coverage End Date [employer] Medicare [id number] [address] [address] [place] [id number] March Self - patient is the insured Medical (General) History Medical History History ICD Code atrial flutter hypertension peripheral vascular disease hypercholeremia hypokalemia vitamin D deficiency diverticulosis rectocele uterine prolapse osteopenia hand eczema continuous churn buttermaker anticoagulation-on coumadin + COVID 11/2022 COVID vaccinated X 2 (Moderna) and 1 dixon ster (Moderna) Surgical History Surgery Date(Month/Year) endoscopy colonoscopy tubal ligation eye surgery Hospitalization History Reason Date(Month/Year) sepsis 05/2024 vaginal delivery 1971 vaginal delivery 1966 vaginal delivery 1962 vaginal delivery 1959
--- OUTSIDE RECORDS SUMMARY | 2025-07-31 16:47 | XMS_ITS | Encounter Summary ---
Author Organization [facility] Address [address] [place] [address] Care Team Providers Care Plastic Jig And Fixture Builder Name Role Phone Unavailable Primary Care Provider Unavailabl e Encounter Details Date Type Department Care Team (Late st Contact Info) Description 07/30/2017 Scanned Document [address] [phone] Provider, Generic Social History Tobacco Use Types [...]
--- OUTSIDE RECORDS SUMMARY | 2025-07-31 16:47 | XMS_ITS | Clinical Summary ---
Author Organization [facility] Address [address] [place] [address] Care Team Providers Care Facsimile Machine Operator Name Role Phone Unavailable Primary [...]
== END 2025-07-31 13:10 | disposition home or self-care (01) ==
LOC: HO.HMGCX 13:09
PROVIDERS: PCP Internal Medicine; Visit Provider Internal Medicine
DX: N28.1 Cyst of kidney, acquired (principal)
CPT/HCPCS: 76775

== ENCOUNTER → 2025-07-31 13:13 | Outpatient (BNV) | payer MEDICARE, SELFPAY | PROVIDERS: PCP Internal Medicine; Visit Provider Radiology Diagnostic Radiology | DX: N28.1 Cyst of kidney, acquired (principal) | CPT/HCPCS: 76775 ==

== ENCOUNTER 2025-08-02 10:00 | Outpatient (AMB) | payer MEDICARE, SELFPAY ==
--- NOTE | 2025-08-02 10:02 | A.OFFVIS_ITS ---
Intake Visit Reasons: pessary check Animal Behaviorist: Animal Behaviorist Present (Rain) Accompanied by: Self / Same As Patient Allergies codeine (CODEINE) Allergy (Intermediate, Verified 08/02/25 10:04) HEADACHES hydrochlorothiazide (HYDROCHLOROTHIAZIDE) Allergy (Intermediate, Verified 10:04) NAUSEA & VOMITING, low K latex (LATEX) Allergy (Intermediate, Verified 08/02/25 10:04) RASH adhesive tape Allergy (Mild, Verified 08/02/25 10:04) Rash empagliflozin (From Jardiance) Adverse Reaction (Intermediate, Verified 08/02/25 10:04) Candidiasis lisinopril (LISINOPRIL) Adverse Reaction (Mild, Verified 08/02/25 10:04) COUGH HPI Comments Details: The patient is presenting for pessary check no complaints no vaginal pain, discharge or pressure. The pessary did not slip out. [facility] Medical History Atrial flutter with rapid ventricular response Candidiasis Edema Edema Paroxysmal atrial fibrillation Osteoporosis Uterine prolapse Rectocele Hyperlipidemia Sinus bradycardia Atrial fibrillation HTN (hypertension) Surgical History S/P ablation of atrial flutter History of cholecystectomy Hx of tubal ligation Family History Father CVD (cardiovascular disease) Mother CVD (cardiovascular disease) Diabetes Other Substance use disorder Social History Household Members: Children Housing: House Do you presently have visiting nurse or other home services: No Alcohol intake: unknown Patient Tobacco Use Status: Former Tobacco user Years Smoked: 12 +/- e-Cigarette/Vaping Use: Never Used Second Hand Smoke Exposure: No service: No Current occupational status: retired 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 Current occupational exposures/hazards: No Cognitive needs: No Hearing needs: No Vision needs: Yes Review of Systems Const All systems reviewed & are unremarkable except as noted in HPI and below Physical Exam General: Yes no CVA tenderness External Female Exam: normal external appearance and normal appearance of the urethra Speculum Exam - Vagina: normal appearance of the vagina, normal palpation, no lesions and no masses Speculum Exam - Cervix: normal appearance of the cervix, normal palpation, no lesions, no masses and nontender Bimanual exam- vagina & uterus: normal bimanual exam, normal palpation, uterine size normal, normal palpation, uterine shape normal, No Cervical tenderness present and non-tender Bimanual Exam- Adnexa, other: normal adnexae Back/Spine/Pelvis Back: no CVA tenderness Assessment & Plan Assessment & Plan (1) Pessary maintenance: Code(s): Z46.89 - Encounter for fitting and adjustment of other specified devices Category: Medical Plan: Pessary was taken out; pelvic exam revealed normal findings no evidence of erythema, pressure or any other abnormal finding. The pessary was replaced back in, it did not slip out after Valsalva in the supine, sitting, and standing position. Pt was instructed to call if vaginal pressure, pain or discharge occurs otherwise and to keep using Trimosan Gel 2-3 x/week. Follow-up in 3 months for another pessary check Coding Level of Care Code Est Pt Level 3 (77375) Diagnoses Pessary maintenance Z46.89
--- OUTSIDE RECORDS SUMMARY | 2025-08-02 12:06 | XMS_ITS | Encounter Summary ---
Author Organization [facility] Address [address] [place] [address] Care Team Providers Care Chemist Pharmaceutical Name Role Phone Unavailable Primary Care Provider Unavailabl e Encounter Details Date Type Department Care Team (Late st Contact Info) Description 07/30/2017 Scanned Document [address] [phone] Provider, Generic Social History Tobacco Use Types [...]
--- OUTSIDE RECORDS SUMMARY | 2025-08-02 12:06 | XMS_ITS | Patient Health Record ---
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) Active confirmed Problem Primary hypertension (26347341) Primary hypertension (I10) Active confirmed Vital Signs Heart Rate 70 /min 05/10/2025 Temperature 96.7 degrees Fahrenheit 05/10/2025 Respiratory Rate 16 /min 05/10/2025 Height 61in in 05/10/2025 Weight 166.2 lbs 05/10/2025 BMI 31.4 kg/m2 05/10/2025 Encounters Encounter Location Date Provider Diagnosis [facility] [address] 08/05/2024 ADOLPH COLINDRES Arthritis of left foot M19.072 ; Pain in left toe(s) M79.675 ; Onychomycosis B35.1 ; Pain in right toe(s) M79.674 ; Other specified peripheral vascular diseases I73.89 and Blister of second toe S90.426A [facility] [address] 11/07/2024 ADOLPH COLINDRES Arthritis of left foot M19.072 ; Pain in left toe(s) M79.675 ; Onychomycosis B35.1 ; Pain in right toe(s) M79.674 ; Other specified peripheral vascular diseases I73.89 and Blister of second toe S90.426A [facility] [address] [phone] 02/06/2025 ADOLPH COLINDRES Onychomycosis B35.1 ; Pain in right toe(s) M79.674 and Other specified peripheral vascular diseases I73.89 [facility] [address] [phone] 05/10/2025 ADOLPH COLINDRES Onychomycosis B35.1 ; Pain [...] aseptically debrided all ten toenails with a revenue stamp cutter and curette; pt tolerated well. 05/10/2025 [...] aseptically debrided all ten toenails with a revenue stamp cutter and curette; pt tolerated well. 02/06/2025 [...] aseptically debrided all ten toenails with a revenue stamp cutter and curette; pt tolerated well. 11/07/2024 [...] aseptically debrided all ten toenails with a revenue stamp cutter and curette; pt tolerated well. 08/05/2024 [...] DURAN COLINDRES, 08/14/2025 08:00:00 AM, [address] [facility] [address], [place], [address], Insurance Providers Payer Name Payer Address Payer Phone Subscriber Number Group Number Insured Name Patient Relationship to Insured Coverage Start Date Coverage End Date [employer] Medicare Adv-[id number] [address] [address] [place] [address] [id number] March Self - patient is the insured Medical (General) History Medical History History ICD Code atrial flutter hypertension peripheral vascular disease hypercholeremia hypokalemia vitamin D deficiency diverticulosis rectocele uterine prolapse osteopenia 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
--- OUTSIDE RECORDS SUMMARY | 2025-08-02 12:06 | XMS_ITS | Clinical Summary ---
Author Organization [facility] Address [address] [place] [address] Care Team Providers Care Sheet Mill Supervisor Name Role Phone Unavailable Primary Care Provider [...]
== END 2025-08-02 10:13 | disposition home or self-care (01) ==
LOC: HO.HWS 10:00
PROVIDERS: PCP Internal Medicine; Visit Provider Obstetrics & Gynecology
DX: Z46.89 Encounter for fitting and adjustment of other specified devices (principal)
CPT/HCPCS: 99213

== ENCOUNTER → 2025-08-02 10:00 | Outpatient (BNVA) | payer MEDICARE, SELFPAY | PROVIDERS: PCP Internal Medicine; Visit Provider Obstetrics & Gynecology | DX: Z46.89 Encounter for fitting and adjustment of other specified devices (principal) | CPT/HCPCS: 99212 ==

== ENCOUNTER 2025-08-17 08:53 | Outpatient (AMB) | payer MEDICARE, SELFPAY ==
--- OUTSIDE RECORDS SUMMARY | 2025-08-14 03:00 | XMS_ITS ---
Author Organization [facility] Address [address] [facility] [address] [place] [address] Care Team Providers Care Pole Classifier Name Role Phone Silvia Reynoso Primary Care Provider ADOLPH Fernández Unavailable [phone] Allergies Allergen (clinical drug ingredient) Drug/Non Drug [...] at bedtime as needed Orally bid Not-Taking Multaq 400 MG 1 tablet with meals Orally Twice a day Not-Taking Diclofenac Sodium 1 % 1gm to the left foot Externally twice daily as needed; Duration: 30 days Not-Taking Ciclopirox 0.77 % 1 application Externally Once a day; Duration: 90 days Active Warfarin Sodium 2.5 MG 1 tablet Orally Once a day Not-Taking Losartan Potassium 25 MG 2 tablet Orally Once a day Not-Taking Cholecalciferol 1000 units. Take 1 cap po daily Active amLODIPine Besylate 5 MG 1 tablet Orally Twice a day Active Metoprolol Tartrate 25 MG 1 tablet with food Orally Twice a day Active Atorvastatin Calcium 40 MG 1 tablet Orally Once a day Active Furosemide 20 MG 1 tablet Orally Once a day PRN Active Valsartan 160 MG 1 tablet Orally twice a day Active Eliquis 5 MG as directed Orally BID Active Amiodarone HCl 200 MG 1 tablet Orally Once a day Active Vital Signs Height 61in in 08/14/2025 Weight 167.1 lbs 08/14/2025 BMI 31.57 kg/m2 08/14/2025 Encounters Encounter Location Date Provider Diagnosis [facility] [address] [facility] [address] [place] [address] 08/14/2025 ADOLPH JENS Onychomycosis B35.1 ; Pain in right toe(s) M79.674 ; Toe pain, left M79.675 and Other specified peripheral vascular diseases I73.89 Assessments Encounter Date Diagnosis (ICD Code) Assessment Notes Treatment Notes Treatment Clinical Notes Section Notes 08/14/2025 Onychomycosis (ICD-10 - B35.1) I reviewed with the patient various treatment methods for toenail fungus including: topical, oral, laser, and removal of the infected toenails. I explained to the patient that she should start to slowly see results. I reviewed with the patient proper nail care and how to conservatively treat ingrown toenails by cutting the nail straight across, and to soak the feet. I explained to the patient how ingrown toenails form: genetics, improper shoes, trauma, fungus. I reviewed with the patient proper nail care and how to conservatively treat ingrown toenails by cutting the nail straight across, massage the skin away from the edges of the nail,and to soak the feet daily. I explained that the ingrown toenail starts at the root and this is what needs to be removed to make the toenail grow back straight. I aseptically debrided all ten toenails with a stonecutter apprentice hand and curette; pt tolerated well. 08/14/2025 Pain in right toe(s) (ICD-10 - M79.674) 08/14/2025 Toe pain, left (ICD-10 - M79.675) 08/14/2025 Other specified peripheral vascular diseases (ICD-10 - I73.89) She has increased leg swelling on examination today. I will defer to her PCP care team as they started a work up for this issue. She can wear compression stockings as needed for any lower extremity edema. Avoid high salt intake and elevate the feet periodically throughout the day. Plan Of Treatment Next Appt Details Follow Up: 3 Months, Reason: Provider Name:ADOLPH HOWARD, 11/17/2025 08:00:00 AM, [address] [facility] [address], [place], [address], Progress Notes * [place] MarchDOB:1940 (85 yo F)Acc No.[id number]:08/14/2025 Progress Note Patient: Ale CAMPOSMarch Provider: Eloise Howard DPM :1940 A ge:85 Y S ex:Female Date:08/14/2025 Address:[address] [place] [phone] Pcp:Silvia Reynoso Subjective: * Chief Complaints: * 3 month f/u * HPI: C onstitutional: This 85 y/o female returns to my office as a follow-up to toenail fungus. She has a small calus on the left big toe today. She thinks the left big toenail may be getting ingrown. S he complains of thick long painful toenails of both feet. She denies any injury or trauma. She has no other foot complaints this visit. Her last visit with her PCP care team was 06/27/2025. Allergies and medical history reviewed. * ROS: G ENERAL: Pt denies nausea, fever, vomiting, chills, or [...] review of systems is noncontributory. * Medical History: * Surgical History: e ndoscopy colonoscopy tubal ligation eye surgery * Hospitalization/Major Diagno stic Procedure: v aginal delivery 1960vaginal delivery 1963vaginal delivery 1966vaginal delivery 1972sepsis 05/2024 * Family History: M other: , diabetes mellitus. * Social History: f ormer smoker 0.5 pack/day quit in 1972 Alcohol: no. * Medications: T akingAmiodarone HCl 200 MG Tablet 1 tablet Orally [...] 1 application Externally Once a day Taking Amiodarone HCl 200 MG Tablet 1 tablet [...] Gel 1 application Externally Once a day Not-TakingDiclofenac Sodium 1 % Gel 1gm to the left foot Externally twice daily as needed Multaq 400 MG Tablet 1 tablet with [...] foot Externally twice daily as needed Not-Taking Multaq 400 MG Tablet 1 tablet [...] to Pharmacist: to effected area 2 times dailyNot- Taking Clotrimazole 1 % Cream 1 application Externally Twice a day Medication List reviewed and reconciled with the patient * Allergies: L isinoprilHydrochlorothiazideCodeine Phosphateno[Allergies Verified] Objective: * Vitals: W t: 167.1 lbs, Ht: 61in, BMI: 31.57 Index, Ht-cm: 154.94, Wt-k.8 kg. * Examination: G eneral Examination: V ASCULAR: Dorsalis pedis pulses are 1/4 bilaterally and Posterior tibial pulses are 1/4 bilaterally. Capillary filling time within normal limits the digits. No pallor on elevation or rubor on dependency. No hair growth. Varicosities of the legs. Denies rest pain or claudication pain. Edema of the legs equal on both sides. NEUROLOGICAL: Sharp/dull sensation intact, protective sensation intact 10/10 with 5.07 [place] bilaterally, vibratory sensation with tuning fork intact to the tibial tuberosity. ORTHOPEDIC: Good muscle strength 4+/5 of all flexors and extensors. Dorsi flexion of ankle,10 degrees, plantar flexion WNL. No muscle atrophy. [...] edema and tenderness; with subungual debris and yellowish discoloration with tenderness on palpation. SHOES: sneakers. Assessment: * Assessment: 1. O nychomycosis - B35.1 (Primary) 2 . P ain in right toe(s) - M79.674? 3. T oe pain, left - M79.675 4 . O ther specified peripheral vascular diseases - I73.89 Plan: * Treatment: 2. O ther specified peripheral vascular diseases Clinical Notes: She has increased leg swelling on examination today. I will defer to her PCP care team as they started a work up for this issue. She can wear compression stockings as needed for any lower extremity edema. Avoid high salt intake and elevate the feet periodically throughout the day.? * Procedure Codes: 1 1721 DEBRIDE NAIL, 6 OR MORE, Modifiers: q9 * Follow Up: 3 Months * Billing Information: * Visit Code: 52765 Office Visit, Est Pt., Level 2. Modifiers: 25 * Procedure Codes: 56616 DEBRIDE NAIL, 6 OR MORE. Modifiers: q9 * Sign off status: Completed true * Provider: Eloise Howard DPM Date: 10/14/2024 Generated for Ulises zaldivar/Alla/Davide on: 10/17/2024 09:35 AM EST History and Physical Notes * HPI (History of Present Illness) Category Sub-Category Detail Notes Category Not es Constitutional This 85 y/o f emale returns to my office as a follow-up to toenail fungus. She has a small calus on the left big toe today. She thinks the left big toenail may be getting ingrown. She complains of thick long painful toenails of both feet. She denies any injury or trauma. She has no other foot complaints this visit. Her last visit with her PCP care team was 06/27/2025. Allergies and medical history reviewed. Examination Category [...] intact, protective sensation intact 10/10 with 5.07 [place] bilaterally, vibratory sensation with tuning fork intact to the tibial tuberosity. ORTHOPEDIC: Good muscle strength 4+/5 of all flexors and extensors. Dorsi flexion of ankle,10 degrees, plantar flexion WNL. No muscle atrophy. [...] edema and tenderness; with subungual debris and yellowish discoloration with tenderness on palpation. SHOES: sneakers
--- NOTE | 2025-08-17 08:59 | A.OFFPC_ITS ---
Vital Signs 08/17/25 09:10 Height 5 ft 2 in Weight 170 lb BMI 31.1 BP 136/64 Blood Pressure Location Lt brachial Position Sitting Respiration 16 Pulse 59 Pulse Source Pulse Oximeter Temp 98.4 F Temp Source Oral Pulse Oximetry (%) 95 Oxygen Delivery Method Room Air Intake Visit Reasons: 1 mo follow up Intake Note: Pt is here today for 1 month follow up visit. Allergies codeine (CODEINE) Allergy (Intermediate, Verified 08/17/25 09:21) HEADACHES hydrochlorothiazide (HYDROCHLOROTHIAZIDE) Allergy (Intermediate, Verified 08/17/25 09:21) NAUSEA & VOMITING, low K latex (LATEX) Allergy (Intermediate, Verified 08/17/25 09:21) RASH adhesive tape Allergy (Mild, Verified 08/17/25 09:21) Rash empagliflozin (From Jardiance) Adverse Reaction (Intermediate, Verified 08/17/25 09:21) Candidiasis lisinopril (LISINOPRIL) Adverse Reaction (Mild, Verified 08/17/25 09:21) COUGH Medication List - Last Reconciled 08/17/25 by Silvia Reynoso MD amiodarone 200 mg PO DAILY amlodipine 5 mg PO BID apixaban (Eliquis) 5 mg PO BID atorvastatin 40 mg PO DAILY blood pressure kit-extra large As directed cholecalciferol (vitamin D3) 25 mcg PO BEDTIME furosemide 40 mg (2 x 20 mg) PO BID hydralazine 10 mg PO .prn metoprolol tartrate 12.5 mg (1/2 x 25 mg) PO BID nystatin (Nystop) 1 appl topical BID PRN oxyquinoline-sod.lauryl sulfat 0.025-0.01 % (Trimo-Agustin Jelly) 1 ea vaginal .2- 3x/wk sertraline 50 mg PO DAILY triamcinolone acetonide 0.1% 1 appl topical BID PRN valsartan 160 mg PO BID Tobacco use date assessed: 08/17/25 Dental Screening Dental Screen Date: 04/03/25 HPI 1 mo follow up HPI Details Pt presents for f/u HTN, hyperlipid, paroxysmal AFib, rhythm con trolled. Patient had an episode of low abdominal discomfort followed by episode of dysuria and gross hematuria for 1 day last week. Patient denies fever chills back pain. She has intermittent constipation but has been taking Metamucil regularly. Patient denies hematochezia. [facility] Medical History (Updated 08/17/25 @ 10:01 by Silvia Reynoso MD) Hyperglycemia Dysuria Atrial flutter with rapid ventricular response Candidiasis Edema Edema Paroxysmal atrial fibrillation Osteoporosis Uterine prolapse Rectocele Hyperlipidemia Sinus bradycardia Atrial fibrillation HTN (hypertension) Surgical History S/P ablation of atrial flutter History of cholecystectomy Hx of tubal ligation Family History Father CVD (cardiovascular disease) Mother CVD (cardiovascular disease) Diabetes Other Substance use disorder Social History Household Members: Children Housing: House Do you presently have visiting nurse or other home services: No Alcohol intake: unknown Patient Tobacco Use Status: Former Tobacco user Years Smoked: 12 +/- e-Cigarette/Vaping Use: Never Used Second Hand Smoke Exposure: No service: No Current occupational status: retired 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 Current occupational exposures/hazards: No Cognitive needs: No Hearing needs: No Vision needs: Yes Questionnaire Thrive Questionnaire Date Thrive assessed: 11/23/24 I am a: Patient What is your living situation today?: I have a steady place to live Within the past 12 months, did the food you bought not last and you didn't have the money to get more?: Never true Within the past 12 months, did you worry whether your food would run out before you got money to buy more?: Never true Do you have trouble paying for medicines?: No Do you have trouble getting transportation to medical appointments?: No Do you have trouble paying your heating and electricity bill?: No Do you have trouble taking care of your child, family member or friend?: No Do you have trouble with day-to-day activities such as bathing, preparing meals, shopping, managing finances, etc.?: No Are you currently unemployed and looking for a job?: No Are you interested in more education?: No Please select the resources that you would like help with: None Currently or been in a relationship where the following occur: No concerns reported THRIVE Score: 0 RENETTA-7 AMB Questionnaire RENETTA-7 Date RENETTA - 7 assessed: 11/23/24 Source: Developed by Drs. Lior Francois, Dee Arango, Jhoan Coronel and colleagues, with an educational simone from [employer]. Review of Systems Const All systems reviewed & are unremarkable except as noted in HPI and below Eyes Reports no additional complaints ENT Reports no additional complaints Card Reports no additional complaints Resp Reports no additional complaints GI Reports no additional complaints Reports no additional complaints Physical exam (Primary Care) Vital Signs: Last Vital Signs Temp 98.4 F 08/17/25 09:10 Pulse 59 08/17/25 09:10 Resp 16 08/17/25 09:10 BP 136/64 08/17/25 09:10 Pulse Ox 95 08/17/25 09:10 Oxygen Delivery Method Room Air 08/17/25 09:10 BMI result Body Mass Index 31.1 Tobacco/Smoking Status: Tobacco use Status Tobacco use date assessed 08/17/25 08/17/25 09:24 Patient Tobacco Use Status Former Tobacco user 08/17/25 09:00 Tobacco use type 06/29/25 13:44 e-Cigarette/Vaping Use Never Used 08/17/25 09:00 Thrive Assessment: Date of Thrive Assessment Date Thrive assessed 11/23/24 08/17/25 09:00 Currently or been in a relationship where the following occur: No concerns reported Const General: no acute distress HENMT Mouth: Normal oral and palatal mucosa present Eyes General: appearance normal, both eyes and all related structures Neck Neck: Yes no lymphadenopathy and Yes supple Resp Effort & Inspection: normal respiratory effort Auscultation: clear to auscultation bilaterally Cardio Rhythm: regular rhythm Heart sounds: S1 normal heart sound present and S2 normal heart sound present GI Inspection: Yes normal to inspection Palpation (GI): Soft to palpation Percussion: Yes normal to percussion Auscultation: normal bowel sounds General: Yes no CVA tenderness Back/Spine/Pelvis Back: no CVA tenderness Extrem Other: 2+ nonpitting edema bilaterally Coding Level of Care Code Est Pt Level 4 (98410) Diagnoses Dysuria R30.0 HTN (hypertension) I10 Hypertension type: unspecified Hyperlipidemia E78.5 Paroxysmal atrial fibrillation I48.0 Hyperglycemia R73.9 Assessment & Plan Assessment & Plan (1) Dysuria: Code(s): R30.0 - Dysuria Category: Medical Plan: Check UA and urine culture, for any recurrent episodes of gross hematuria obtain renal and bladder ultrasound (2) HTN (hypertension): Code(s): I10 - Essential (primary) hypertension Category: Medical Qualifiers: Hypertension type: unspecified Qualified Code(s): I10 - Essential (primary) hypertension Plan: Continue current medications (3) Hyperlipidemia: Code(s): E78.5 - Hyperlipidemia, unspecified Category: Medical Plan: Continue statin (4) Paroxysmal atrial fibrillation: Comment: Rhythm controlled on amiodarone and anticoagulated on Eliquis, established with [facility] Cardiology Code(s): I48.0 - Paroxysmal atrial fibrillation Category: Medical Plan: Continue current medications follow-up with Cardiology (5) Hyperglycemia: Code(s): R73.9 - Hyperglycemia, unspecified Category: Medical Plan: ADA diet increase physical activity weight loss discussed with the patient check A1c Orders: Orders Complete Blood Count Auto Diff 1 Month E78.5 - Hyperlipidemia, unspecified, I10 - Essential (primary) hypertension, I48.0 - Paroxysmal atrial fibrillation TSH reflex Free T4 1 Month E78.5 - Hyperlipidemia, unspecified, I10 - Essential (primary) hypertension, I48.0 - Paroxysmal atrial fibrillation UA w Microscopic Today R30.0 - Dysuria Urine Culture Today R30.0 - Dysuria Hemoglobin A1c 1 Month E78.5 - Hyperlipidemia, unspecified, I10 - Essential (primary) hypertension, I48.0 - Paroxysmal atrial fibrillation Comprehensive [place]. Panel Fast 1 Month E78.5 - Hyperlipidemia, unspecified, I10 - Essential (primary) hypertension, I48.0 - Paroxysmal atrial fibrillation
[2025-08-17 09:10] VITALS: BP 136/64; PULSE 59; RESP 16; TEMP 36.9; O2SAT 95; BMI 31.1
--- OUTSIDE RECORDS SUMMARY | 2025-08-17 09:36 | XMS_ITS | Patient Health Record ---
Author Organization [facility] Address [address] [facility] [address] [place] [address] Care Team Providers Care Uniform Designer Name Role Phone Silvia Reynoso Primary Care Provider ADOLPH Fernández Unavailable [phone] Allergies Allergen (clinical drug ingredient) Drug/Non Drug [...] Once a day; Duration: 90 days Active Cholecalciferol 1000 units. 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) Active confirmed Problem Primary hypertension (91610855) Primary hypertension (I10) Active confirmed Vital Signs Heart Rate 70 /min 05/10/2025 Temperature 96.7 degrees Fahrenheit 05/10/2025 Respiratory Rate 16 /min 05/10/2025 Height 61in in 08/14/2025 Weight 167.1 lbs 08/14/2025 BMI 31.57 kg/m2 08/14/2025 Encounters Encounter Location Date Provider Diagnosis [facility] [address] 11/07/2024 ADOLPH COLINDRES Arthritis of left foot M19.072 ; Pain in left toe(s) M79.675 ; Onychomycosis B35.1 ; Pain in right toe(s) M79.674 ; Other specified peripheral vascular diseases I73.89 and Blister of second toe S90.426A [facility] [address] 02/06/2025 ADOLPH COLINDRES Onychomycosis B35.1 ; Pain in right toe(s) M79.674 and Other specified peripheral vascular diseases I73.89 [facility] [address] 05/10/2025 ADOLPH COLINDRES Onychomycosis B35.1 ; Pain in right toe(s) M79.674 and Other specified peripheral vascular diseases I73.89 [facility] [address] 08/14/2025 ADOLPH COLINDRES Onychomycosis B35.1 ; Pain in [...] aseptically debrided all ten toenails with a fabric cutter and curette; pt tolerated well. [...] aseptically debrided all ten toenails with a fabric cutter and curette; pt tolerated well. 08/14/2025 Pain in right toe(s) (ICD-10 - M79.674) 08/14/2025 Onychomycosis (ICD-10 - B35.1) I reviewed [...] aseptically debrided all ten toenails with a fabric cutter and curette; pt tolerated well. 08/14/2025 Toe pain, left (ICD-10 - M79.675) 02/06/2025 Other specified peripheral vascular diseases (ICD-10 [...] aseptically debrided all ten toenails with a fabric cutter and curette; pt tolerated well. 05/10/2025 Other specified peripheral vascular diseases (ICD-10 - I73.89) She has increased leg swelling on examination today. I will defer to her PCP care team as they started a work up for this issue. She can wear compression stockings as needed for any lower extremity edema. Avoid high salt intake and elevate the feet periodically throughout the day. 08/14/2025 Other specified peripheral vascular diseases (ICD-10 [...] Treatment Next Appt Details Provider Name:ADOLPH COLINDRES, 11/17/2025 08:00:00 AM, [address] [address], [place], [address], Insurance Providers Payer Name Payer Address Payer Phone Subscriber Number Group Number Insured Name Patient Relationship to Insured Coverage Start Date Coverage End Date [employer] Medicare [id number] [address] [address] [place] [address] [id number] March Self - patient is the insured Medical (General) History Medical History History ICD Code atrial flutter hypertension peripheral vascular disease hypercholeremia hypokalemia vitamin D deficiency diverticulosis rectocele uterine prolapse osteopenia hand eczema longterm anticoagulation-on coumadin + COVID 11/2022 COVID vaccinated X 2 (Moderna) and 1 dixon ster (Moderna) Surgical History Surgery Date(Month/Year) endoscopy colonoscopy tubal ligation eye surgery Hospitalization History Reason Date(Month/Year) sepsis 05/2024 vaginal delivery 1971 vaginal delivery 1966 vaginal delivery 1962 vaginal delivery 1959
--- OUTSIDE RECORDS SUMMARY | 2025-08-17 09:36 | XMS_ITS | Clinical Summary ---
Author Organization [facility] Address [address] [place] [address] Care Team Providers Care Pipe Insulator Name Role Phone Unavailable Primary Care Provider [...]
--- OUTSIDE RECORDS SUMMARY | 2025-08-17 09:36 | XMS_ITS | Encounter Summary ---
Author Organization [facility] Address [address] [place] [address] Care Team Providers Care Head Trimmer Name Role Phone Unavailable Primary Care Provider Unavailabl e Encounter Details Date Type Department Care Team (Late st Contact Info) Description 07/30/2017 Scanned Document [address] [phone] Provider, Generic Social History Tobacco Use Types [...]
== END 2025-08-17 10:04 | disposition home or self-care (01) ==
LOC: HO.HMCC 08:55
PROVIDERS: PCP Internal Medicine; Visit Provider Internal Medicine
DX: R30.0 Dysuria (principal); I10 Essential (primary) hypertension; E78.5 Hyperlipidemia, unspecified; I48.0 Paroxysmal atrial fibrillation; R73.9 Hyperglycemia, unspecified

== ENCOUNTER 2025-08-17 08:53 | Outpatient (REF) | payer MEDICARE, SELFPAY ==
[2025-08-17 13:35] LABS: Appearance Urine Clear; Glucose Urine UA Negative (Negative); PH 5.5 (5.0-9.0); Specific Gravity - Urine 1.010 (1.005-1.025); UMIC TRIGGER UA YES
== END 2025-08-17 08:54 | disposition home or self-care (01) ==
LOC: HO.HMGCLDS 08:53
PROVIDERS: PCP Internal Medicine; Visit Provider Internal Medicine
DX: I10 Essential (primary) hypertension (principal); R30.0 Dysuria; E78.5 Hyperlipidemia, unspecified; I48.0 Paroxysmal atrial fibrillation; R73.9 Hyperglycemia, unspecified
CPT/HCPCS: 81001; 87086; 99212

== ENCOUNTER 2025-09-18 07:51 | Outpatient (REF) | payer MEDICARE, SELFPAY ==
--- NOTE | ~2025-09-18 | XR_ITS ---
EXAMINATION: XR LUMBOSACRAL SPINE CLINICAL INFORMATION: M54.50 - Low back pain, unspecified COMPARISON: None available. TECHNIQUE: 4 views FINDINGS: Bone mineralization is decreased. Mild, lordotic curvature of the spine. 1 cm anterolisthesis of L4 on L5. Vertebral body heights are preserved. No evidence of acute fracture. Moderate L5-S1 disc degeneration. Multilevel facet degeneration. Prominent aortic vascular calcification. Surgical clips in right upper quadrant. SI joints are symmetric.. XR/XR lumbar spine 2-3V IMPRESSION: No acute findings. Moderate L5-S1 disc degeneration. Electronically signed by: Arsenio Vidal MD 09/20/2025 08:33 AM EST
--- OUTSIDE RECORDS SUMMARY | 2025-09-18 07:55 | XMS_ITS | Encounter Summary ---
Author Organization [facility] Address [address] [place] [address] Care Team Providers Care Shopper Marketing Manager Name Role Phone Unavailable Primary Care Provider Unavailabl e Encounter Details Date Type Department Care Team (Late st Contact Info) Description 07/30/2017 Scanned Document [address] [phone] Provider, Generic Social History Tobacco Use Types [...]
--- OUTSIDE RECORDS SUMMARY | 2025-09-18 07:55 | XMS_ITS | Patient Health Record ---
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) Active confirmed Problem Primary hypertension (92842895) Primary hypertension (I10) Active confirmed Vital Signs Heart Rate 70 /min 05/10/2025 Temperature 96.7 degrees Fahrenheit 05/10/2025 Respiratory Rate 16 /min 05/10/2025 Height 61in in 08/14/2025 Weight 167.1 lbs 08/14/2025 BMI 31.57 kg/m2 08/14/2025 Encounters Encounter Location Date Provider Diagnosis [facility] [address] 11/07/2024 ADOLPH COLINDRES Arthritis of left foot M19.072 ; Pain in left toe(s) M79.675 ; Onychomycosis B35.1 ; Pain in right toe(s) M79.674 ; Other specified peripheral vascular diseases I73.89 and Blister of second toe S90.426A [facility] [address] 02/06/2025 ADOLPH COLINDRES Onychomycosis B35.1 ; Pain in right toe(s) M79.674 and Other specified peripheral vascular diseases I73.89 [facility] [address] 05/10/2025 ADOLPH COLINDRES Onychomycosis B35.1 ; Pain in right toe(s) M79.674 and Other specified peripheral vascular diseases I73.89 [facility] [address] 08/14/2025 ADOLPH COLINDRES Onychomycosis B35.1 ; [...] debrided all ten toenails with a nailer machine and curette; pt tolerated well. 05/10/2025 [...] debrided all ten toenails with a nailer machine and curette; pt tolerated well. 08/14/2025 Pain [...] debrided all ten toenails with a nailer machine and curette; pt tolerated well. 08/14/2025 Toe [...] debrided all ten toenails with a nailer machine and curette; pt tolerated well. 05/10/2025 Other [...] Name:ADOLPH COLINDRES, 11/17/2025 08:00:00 AM, [address] [address], [place], [address], Insurance Providers Payer Name Payer Address Payer Phone Subscriber Number Group Number Insured Name Patient Relationship to Insured Coverage Start Date Coverage End Date [employer] Medicare [id number] [address] [address] [place] [phone] [id number] March Self - patient is the [...]
--- OUTSIDE RECORDS SUMMARY | 2025-09-18 07:55 | XMS_ITS | Clinical Summary ---
Author Organization [facility] Address [address] [place] [address] Care Team Providers Care Pipe Smoking Machine Operator Name Role Phone Unavailable Primary [...] 75+ series) 2015 COVID-19 Vaccine ( - 2024-2 6 season) 2025 Hepatitis B Vaccines Aged Out No long er eligible based on patient's age to complete this topic
[2025-09-18 10:07] LABS: MANUAL DIFF FLAG NO
[2025-09-18 10:19] LABS: Hematocrit 43.3 % (37.0-47.0); Hemoglobin 14.2 g/dl (12.0-16.0); Imm Gran Abs Auto 0.01 X10*3/uL (0.00-0.03); Imm Gran Pct Auto 0.2 % (0.0-0.4); Lymphocytes Absolute Auto 2.1 X10*3/uL (1.2-4.9); Mean Corpuscular HGB Conc 32.8 g/dl (31.0-35.0); Mean Corpuscular Hemoglobin 29.7 pg (27.0-33.0); Mean Corpuscular Volume 90.6 fL (80.0-98.0); NRBC Abs Auto 0.000 X10*3/uL (0.0-0.012); NRBC Pct Auto 0.0 /100WBC (0.0-0.2); Platelet Count 207 X10*3/uL (160-400); Red Blood Count 4.78 X10*6/uL (4.20-5.50); White Blood Count 6.2 X10*3/uL (4.8-10.8)
[2025-09-18 10:44] LABS: Alanine Aminotransferase 18 U/L (0-31); Albumin Level 4.4 g/dL (3.5-5.0); Alkaline Phosphatase 102 U/L (39-117); Anion Gap 11 (12-20); Aspartate Amino Transferase 25 U/L (5-31); Blood Urea Nitrogen 22 mg/dL (9-16); Calcium 9.6 mg/dL (8.4-10.2); Carbon Dioxide 26 mmol/L (22-29); Chloride 109 mmol/L (96-108); Estimated Glomerular Filt Rate 56; Potassium 3.7 mmol/L (3.3-5.1); Sodium 142 mmol/L (135-145); Total Protein 6.9 g/dL (6.5-8.0)
== END 2025-09-18 07:52 | disposition home or self-care (01) ==
LOC: HO.HMGCX 07:51
PROVIDERS: PCP Internal Medicine; Visit Provider Internal Medicine
DX: I10 Essential (primary) hypertension (principal); E78.5 Hyperlipidemia, unspecified; I48.0 Paroxysmal atrial fibrillation; M54.50 Low back pain, unspecified; K62.5 Hemorrhage of anus and rectum; Z79.2 Long term (current) use of antibiotics; Z79.899 Other long term (current) drug therapy
CPT/HCPCS: 36415; 72100; 80053; 83036; 84443; 85025; 96127; 99212

== ENCOUNTER 2025-09-18 13:18 | Outpatient (AMB) | payer MEDICARE, SELFPAY ==
--- NOTE | 2025-09-18 13:56 | A.OFFPC_ITS ---
Vital Signs 09/18/25 13:57 Height 5 ft 2 in Weight 172 lb BMI 31.5 BP 130/68 Blood Pressure Location Lt brachial Position Sitting Respiration 16 Pulse 62 Pulse Source Pulse Oximeter Pulse Oximetry (%) 96 Oxygen Delivery Method Room Air Intake Visit Reasons: back pain Traffic Signal Supervisor Maintenance Required: No Accompanied by: Self / Same As Patient Allergies codeine (CODEINE) Allergy (Intermediate, Verified 09/18/25 14:01) HEADACHES hydrochlorothiazide (HYDROCHLOROTHIAZIDE) Allergy (Intermediate, Verified 09/18/25 14:01) NAUSEA & VOMITING, low K latex (LATEX) Allergy (Intermediate, Verified 09/18/25 14:01) RASH adhesive tape Allergy (Mild, Verified 09/18/25 14:01) Rash empagliflozin (From Jardiance) Adverse Reaction (Intermediate, Verified 09/18/25 14:01) Candidiasis lisinopril (LISINOPRIL) Adverse Reaction (Mild, Verified 09/18/25 14:01) COUGH Medication List - Last Reconciled 09/18/25 by Silvia Reynoso MD amiodarone 200 mg PO DAILY amlodipine 5 mg PO BID apixaban (Eliquis) 5 mg PO BID atorvastatin 40 mg PO DAILY baclofen 10 mg PO BEDTIME blood pressure kit-extra large As directed cholecalciferol (vitamin D3) 25 mcg PO BEDTIME furosemide 40 mg (2 x 20 mg) PO BID metoprolol tartrate 12.5 mg (1/2 x 25 mg) PO BID nystatin (Nystop) 1 appl topical BID PRN oxyquinoline-sod.lauryl sulfat 0.025-0.01 % (Trimo-Agustin Jelly) 1 ea vaginal .2- 3x/wk triamcinolone acetonide 0.1% 1 appl topical BID PRN valsartan 160 mg PO BID Tobacco use date assessed: 09/18/25 Fall risk assessment: No Falls in past year Last assessed Fall Risk: 09/18/25 Dental Screening Dental Screen Date: 09/18/25 Did you have a dental visit in the last 12 months?: Yes Did you have a dental problem in the last 6 months where you did not have access to dental care?: No Was dental information given to patient?: Patient has dentist HPI back pain HPI Details Patient presents complaining of right-sided recurrent lower back pain, positional started after patient was bending a lot. She denies pain radiating to lower extremities weakness or numbness in extremities. Patient complains of intermittent constipation getting worse for the last few months and 2 episodes of fresh blood per rectum after the bowel movement the last one 3 days. She denies abdominal pain melena nausea vomiting fever chills weight loss, rectal pain, dysuria hematuria. Patient has been taking stool softeners increasing fiber in her diet. Patient never had colonoscopy. Hypertension hyperlipidemia and AFib are controlled on current medications. [facility] Medical History (Updated 09/18/25 @ 14:28 by Silvia Reynoso MD) Hyperglycemia Dysuria Atrial flutter with rapid ventricular response Candidiasis Edema Edema Paroxysmal atrial fibrillation Osteoporosis Uterine prolapse Rectocele Hyperlipidemia Sinus bradycardia Atrial fibrillation HTN (hypertension) Surgical History S/P ablation of atrial flutter History of cholecystectomy Hx of tubal ligation Family History Father CVD (cardiovascular disease) Mother CVD (cardiovascular disease) Diabetes Other Substance use disorder Social History Household Members: Children Housing: House Do you presently have visiting nurse or other home services: No Alcohol intake: unknown Patient Tobacco Use Status: Former Tobacco user Years Smoked: 12 +/- e-Cigarette/Vaping Use: Never Used Second Hand Smoke Exposure: No service: No Current occupational status: retired Current occupation: [employer] Current occupational exposures/hazards: No Cognitive needs: No Hearing needs: No Vision needs: Yes Questionnaire PHQ-9 Over the last 2 weeks, how often have you been bothered by any of the following problems? 1. Little interest or pleasure in doing things: not at all 2. Feeling down, depressed, or hopeless: not at all 3. Trouble falling or staying asleep, or sleeping too much: not at all 4. Feeling tired or having little energy: not at all 5. Poor appetite or overeating: not at all 6. Feeling bad about yourself - or that you are a failure or have let yourself or your family down: not at all 7. Trouble concentrating on things, such as reading the newspaper or watching television: not at all 8. Moving or speaking so slowly that other people could have noticed. Or the opposite - being so fidgety or restless that you have been moving around a lot more than usual: not at all 9. Thoughts that you would be better off or of hurting yourself in some way: not at all Total score: 0 Depression Screening Interpretation: Negative Depression Screening Done: Yes 90407 - PHQ-9 Billing: Yes Source: Developed by Drs. Lior Francois, Dee Arango, Jhoan Coronel and colleagues, with an educational simone from [employer]. Thrive Questionnaire Date Thrive assessed: 11/23/24 I am a: Patient What is your living situation today?: I have a steady place to live Within the past 12 months, did the food you bought not last and you didn't have the money to get more?: Never true Within the past 12 months, did you worry whether your food would run out before you got money to buy more?: Never true Do you have trouble paying for medicines?: No Do you have trouble getting transportation to medical appointments?: No Do you have trouble paying your heating and electricity bill?: No Do you have trouble taking care of your child, family member or friend?: No Do you have trouble with day-to-day activities such as bathing, preparing meals, shopping, managing finances, etc.?: No Are you currently unemployed and looking for a job?: No Are you interested in more education?: No Please select the resources that you would like help with: None Currently or been in a relationship where the following occur: No concerns reported THRIVE Score: 0 RENETTA-7 AMB Questionnaire RENETTA-7 Date RENETTA - 7 assessed: 11/23/24 Source: Developed by Drs. Lior Francois, Dee Arango, Jhoan Coronel and colleagues, with an educational simone from [employer]. Review of Systems Const All systems reviewed & are unremarkable except as noted in HPI and below Eyes Reports no additional complaints ENT Reports no additional complaints Card Reports no additional complaints Resp Reports no additional complaints GI Reports no additional complaints Reports no additional complaints Physical exam (Primary Care) Vital Signs: Last Vital Signs Pulse 62 09/18/25 13:57 Resp 16 09/18/25 13:57 BP 130/68 09/18/25 13:57 Pulse Ox 96 09/18/25 13:57 Oxygen Delivery Method Room Air 09/18/25 13:57 BMI result Body Mass Index 31.5 Tobacco/Smoking Status: Tobacco use Status Tobacco use date assessed 09/18/25 09/18/25 14:02 Patient Tobacco Use Status Former Tobacco user 09/18/25 13:57 Tobacco use type 06/29/25 13:44 e-Cigarette/Vaping Use Never Used 09/18/25 13:57 PHQ-9: PHQ-9 Score PHQ-9: Total score 0 09/18/25 14:02 Depression Screening Interpretation: Negative Thrive Assessment: Date of Thrive Assessment Date Thrive assessed 11/23/24 09/18/25 13:57 Currently or been in a relationship where the following occur: No concerns reported Const General: no acute distress HENMT Face and sinus: Yes normal facial exam Neck Neck: Yes supple Resp Effort & Inspection: normal respiratory effort Auscultation: clear to auscultation bilaterally Cardio Rhythm: regular rhythm Heart sounds: S1 normal heart sound present and S2 normal heart sound present GI Inspection: Yes normal to inspection Palpation (GI): Soft to palpation Percussion: Yes normal to percussion Auscultation: normal bowel sounds General: Yes no CVA tenderness Back/Spine/Pelvis Other: Paraspinal tenderness in lower lumbar region right more than left, straight leg rising 90 degrees bilaterally, no spinal tenderness Back: no CVA tenderness Coding Level of Care Code Est Pt Level 4 (21865) Diagnoses Lower back pain M54.50 Rectal bleed K62.5 Additional Codes PHQ-9 - 68035 - PHQ-9 Billing: Yes ([id number]) Assessment & Plan Assessment & Plan (1) Lower back pain: Code(s): M54.50 - Low back pain, unspecified Category: Medical Plan: For recurrent lower back pain obtain x-ray of lumbar spine. Patient was advised to continue Tylenol and baclofen will be added. She declined physical therapy (2) Rectal bleed: Code(s): K62.5 - Hemorrhage of anus and rectum Category: Medical Plan: For recurrent lower GI bleed patient will be referred to public health nurse, for evaluation. Patient was advised to increasing patient was advised to increase fiber and fluid intake and take stool softener daily. For any worsening GI bleed patient was advised to go the emergency room. CBC is normal today Orders: Orders XR lumbar spine 2-3V Today M54.50 - Low back pain, unspecified Referrals Gastroenterology Referral K62.5 - Hemorrhage of anus and rectum Medications: New baclofen 10 mg PO BEDTIME 20 tabs 0RF
[2025-09-18 13:57] VITALS: BP 130/68; PULSE 62; RESP 16; O2SAT 96; BMI 31.5
--- OUTSIDE RECORDS SUMMARY | 2025-09-18 19:17 | XMS_ITS | Encounter Summary ---
Author Organization [facility] Address [address] [place] [address] Care Team Providers Care Clinical Programmer Name Role Phone Unavailable Primary Care Provider Unavailabl e Encounter Details Date Type Department Care Team (Late st Contact Info) Description 07/30/2017 Scanned Document [address] [phone] Provider, Generic Social History Tobacco Use Types [...]
--- OUTSIDE RECORDS SUMMARY | 2025-09-18 19:17 | XMS_ITS | Clinical Summary ---
Author Organization [facility] Address [address] [place] [address] Care Team Providers Care Fibreglass Laminator Name Role Phone Unavailable Primary Care Provider [...]
== END 2025-09-18 16:48 | disposition home or self-care (01) ==
LOC: HO.HMCC 13:19
PROVIDERS: PCP Internal Medicine; Visit Provider Internal Medicine
DX: M54.50 Low back pain, unspecified (principal); K62.5 Hemorrhage of anus and rectum

== ENCOUNTER → 2025-09-18 14:39 | Outpatient (BNV) | payer MEDICARE, SELFPAY | PROVIDERS: PCP Internal Medicine; Visit Provider Radiology Diagnostic Ultrasound | DX: M51.370 Other intervertebral disc degeneration, lumbosacral region with discogenic back pain only (principal) | CPT/HCPCS: 72100 ==

== ENCOUNTER 2025-10-04 08:17 | Outpatient (AMB) | payer MEDICARE, SELFPAY ==
--- OUTSIDE RECORDS SUMMARY | 2025-10-04 08:22 | XMS_ITS | Encounter Summary ---
Author Organization [facility] Address [address] [place] [address] Care Team Providers Care Housesmith Name Role Phone Unavailable Primary Care Provider Unavailabl e Encounter Details Date Type Department Care Team (Late st Contact Info) Description 07/30/2017 Scanned Document [address] [phone] Provider, Generic Social History Tobacco Use Types [...]
--- OUTSIDE RECORDS SUMMARY | 2025-10-04 08:22 | XMS_ITS | Patient Health Record ---
Author Organization [facility] Address [address] [facility] [address] [place] [address] Care Team Providers Care Belt Conveyor Drier Name Role Phone Silvia Reynoso Primary Care Provider ADOLPH Fernández Unavailable [phone] Allergies Allergen (clinical drug ingredient) Drug/Non Drug [...] Status Risk Notes Problem Peripheral vascular disease (718823615) Other specified peripheral vascular diseases (I73.89) Active confirmed Problem Arthritis of left foot (439077954703393 9) 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) Active confirmed Problem Primary hypertension (87453487) Primary hypertension (I10) Active confirmed Vital Signs Heart Rate 70 /min 05/10/2025 Temperature 96.7 degrees Fahrenheit 05/10/2025 Respiratory Rate 16 /min 05/10/2025 Height 61in in 08/14/2025 Weight 167.1 lbs 08/14/2025 BMI 31.57 kg/m2 08/14/2025 Encounters Encounter Location Date Provider Diagnosis [facility] [address] 11/07/2024 ADOLPH COLINDRES Arthritis of left foot M19.072 ; Pain in left toe(s) M79.675 ; Onychomycosis B35.1 ; Pain in right toe(s) M79.674 ; Other specified peripheral vascular diseases I73.89 and Blister of second toe S90.426A [facility] [address] 02/06/2025 ADOLPH COLINDRES Onychomycosis B35.1 ; Pain in right toe(s) M79.674 and Other specified peripheral vascular diseases I73.89 [facility] [address] 05/10/2025 ADOLPH COLINDRES Onychomycosis B35.1 ; Pain in right toe(s) M79.674 and Other specified peripheral vascular diseases I73.89 [facility] [address] 08/14/2025 ADOLPH COLINDRES Onychomycosis B35.1 ; Pain in right toe(s) M79.674 ; Toe pain, left M79.675 and Other specified peripheral vascular diseases I73.89 [facility] [address] [place] [address] 10/03/2025 ADOLPH COLINDRES Assessments Encounter Date Diagnosis (ICD [...] debrided all ten toenails with a cutter grind tool technician and curette; pt tolerated well. 05/10/2025 Onychomycosis [...] debrided all ten toenails with a cutter grind tool technician and curette; pt tolerated well. 08/14/2025 Pain [...] debrided all ten toenails with a cutter grind tool technician and curette; pt tolerated well. 08/14/2025 Toe [...] debrided all ten toenails with a cutter grind tool technician and curette; pt tolerated well. 05/10/2025 Other [...] Name:ADOLPH COLINDRES, 11/17/2025 08:00:00 AM, [address] [facility] [address], [place], [address], Insurance Providers Payer Name Payer Address Payer Phone Subscriber Number Group Number Insured Name Patient Relationship to Insured Coverage Start Date Coverage End Date [employer] Medicare [id number] [address] [address] [place] [phone] [id number] March Self - patient is the [...]
--- OUTSIDE RECORDS SUMMARY | 2025-10-04 08:22 | XMS_ITS | Clinical Summary ---
Author Organization [facility] Address [address] [place] [address] Care Team Providers Care Online Marketing Analyst Name Role Phone Unavailable Primary Care [...]
[2025-10-04 08:25] VITALS: BP 128/66; PULSE 62; RESP 17; TEMP 36.6; O2SAT 97; BMI 31.3
--- NOTE | 2025-10-04 08:25 | MHC.PC.OV ---
Vital Signs 10/04/25 08:25 Height 5 ft 2 in Weight 171 lb BMI 31.3 BP 128/66 Blood Pressure Location Lt brachial Position Sitting Respiration 17 Pulse 62 Pulse Source Pulse Oximeter Temp 98 F Temp Source Oral Pulse Oximetry (%) 97 Oxygen Delivery Method Room Air Intake Visit Reasons: PE Intake Note: Pt is here today for PE. Allergies codeine (CODEINE) Allergy (Intermediate, Verified 10/04/25 08:30) HEADACHES hydrochlorothiazide (HYDROCHLOROTHIAZIDE) Allergy (Intermediate, Verified 10/04/25 08:30) NAUSEA & VOMITING, low K latex (LATEX) Allergy (Intermediate, Verified 10/04/25 08:30) RASH adhesive tape Allergy (Mild, Verified 10/04/25 08:30) Rash empagliflozin (From Jardiance) Adverse Reaction (Intermediate, Verified 10/04/25 08:30) Candidiasis lisinopril (LISINOPRIL) Adverse Reaction (Mild, Verified 10/04/25 08:30) COUGH Medication List - Last Reconciled 10/04/25 by Silvia Reynoso MD amiodarone 200 mg PO DAILY amlodipine 5 mg PO BID apixaban (Eliquis) 5 mg PO BID atorvastatin 40 mg PO DAILY blood pressure kit-extra large As directed cholecalciferol (vitamin D3) 25 mcg PO BEDTIME furosemide 40 mg (2 x 20 mg) PO BID metoprolol tartrate 12.5 mg (1/2 x 25 mg) PO BID nystatin (Nystop) 1 appl topical BID PRN oxyquinoline-sod.lauryl sulfat 0.025-0.01 % (Trimo-Agustin Jelly) 1 ea vaginal .2-3x/wk triamcinolone acetonide 0.1% 1 appl topical BID PRN valsartan 160 mg PO BID Tobacco use date assessed: 10/04/25 Fall risk assessment: No Falls in past year Last assessed Fall Risk: 10/04/25 Dental Screening Dental Screen Date: 09/18/25 HPI PE HPI Details Pt presents for PE. PFSH Medical History (Updated 10/04/25 @ 09:31 by Silvia Reynoso MD) Hyperglycemia Dysuria Atrial flutter with rapid ventricular response Candidiasis Edema Edema Paroxysmal atrial fibrillation Osteoporosis Uterine prolapse Rectocele Hyperlipidemia Sinus bradycardia Atrial fibrillation HTN (hypertension) Surgical History S/P ablation of atrial flutter History of cholecystectomy Hx of tubal ligation Family History Father CVD (cardiovascular disease) Mother CVD (cardiovascular disease) Diabetes Other Substance use disorder Social History Household Members: Children Housing: House Do you presently have visiting nurse or other home services: No Alcohol intake: unknown Patient Tobacco Use Status: Former Tobacco user Years Smoked: 12 +/- e-Cigarette/Vaping Use: Never Used Second Hand Smoke Exposure: No service: No Current occupational status: retired 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 Current occupational exposures/hazards: No Cognitive needs: No Hearing needs: No Vision needs: Yes Questionnaire Thrive Questionnaire Date Thrive assessed: 11/23/24 I am a: Patient What is your living situation today?: I have a steady place to live Within the past 12 months, did the food you bought not last and you didn't have the money to get more?: Never true Within the past 12 months, did you worry whether your food would run out before you got money to buy more?: Never true Do you have trouble paying for medicines?: No Do you have trouble getting transportation to medical appointments?: No Do you have trouble paying your heating and electricity bill?: No Do you have trouble taking care of your child, family member or friend?: No Do you have trouble with day-to-day activities such as bathing, preparing meals, shopping, managing finances, etc.?: No Are you currently unemployed and looking for a job?: No Are you interested in more education?: No Currently or been in a relationship where the following occur: No concerns reported THRIVE Score: 0 RENETTA-7 AMB Questionnaire RENETTA-7 Date RENETTA - 7 assessed: 11/23/24 Source: Developed by Drs. Lior Francois, Dee Arango, Jhoan Coronel and colleagues, with an educational simone from [employer]. Review of Systems Const All systems reviewed & are unremarkable except as noted in HPI and below Eyes Reports no additional complaints ENT Reports no additional complaints Card Reports no additional complaints Resp Reports no additional complaints GI Reports no additional complaints Reports no additional complaints Physical exam (Primary Care) Vital Signs: Last Vital Signs Temp 98 F 10/04/25 08:25 Pulse 62 10/04/25 08:25 Resp 17 10/04/25 08:25 BP 128/66 10/04/25 08:25 Pulse Ox 97 10/04/25 08:25 Oxygen Delivery Method Room Air 10/04/25 08:25 BMI result Body Mass Index 31.3 Tobacco/Smoking Status: Tobacco use Status Tobacco use date assessed 10/04/25 10/04/25 08:34 Patient Tobacco Use Status Former Tobacco user 10/04/25 08:26 Tobacco use type 06/29/25 13:44 e-Cigarette/Vaping Use Never Used 10/04/25 08:26 Thrive Assessment: Date of Thrive Assessment Date Thrive assessed 11/23/24 10/04/25 08:26 Currently or been in a relationship where the following occur: No concerns reported Const General: no acute distress HENMT Ears: TM's normal bilaterally Face and sinus: Yes normal facial exam Throat: Yes posterior oropharynx normal Eyes General: appearance normal, both eyes and all related structures Neck Neck: Yes no lymphadenopathy and Yes supple Resp Effort & Inspection: normal respiratory effort Auscultation: clear to auscultation bilaterally Cardio Rhythm: regular rhythm Heart sounds: S1 normal heart sound present and S2 normal heart sound present GI Inspection: Yes normal to inspection Palpation (GI): Soft to palpation Percussion: Yes normal to percussion Auscultation: normal bowel sounds Extrem Other: 3+ pitting edema bilaterally Coding Level of Care Code Est Pt Prev Care >65y(51888) Diagnoses Lower back pain M54.50 Paroxysmal atrial fibrillation I48.0 HTN (hypertension) I10 Hypertension type: unspecified Hyperlipidemia E78.5 Cutaneous candidiasis B37.2 Edema R60.9 Annual physical exam Z00.00 Assessment & Plan Assessment & Plan (1) Lower back pain: Code(s): M54.50 - Low back pain, unspecified Category: Medical Plan: For chronic lower back pain referred to physical therapy (2) Paroxysmal atrial fibrillation: Comment: s/p ablation 05/2024, Rhythm controlled on amiodarone and anticoagulated on Eliquis, established with [facility] [place] [facility], Echo 06/2025 nl EF, nl valves, Holter 02/2025 sinus rhythm Code(s): I48.0 - Paroxysmal atrial fibrillation Category: Medical Plan: Continue current medications follow-up with Cardiology (3) HTN (hypertension): Code(s): I10 - Essential (primary) hypertension Category: Medical Qualifiers: Hypertension type: unspecified Qualified Code(s): I10 - Essential (primary) hypertension Plan: Continue current medications (4) Hyperlipidemia: Code(s): E78.5 - Hyperlipidemia, unspecified Category: Medical Plan: Continue statin (5) Cutaneous candidiasis: Comment: Right inguinal area Code(s): B37.2 - Candidiasis of skin and nail Category: Medical Plan: Ketoconazole and nystatin powder prescribed (6) Edema: Comment: 2+ lower extremities, on 10 mg of amlodipine Code(s): R60.9 - Edema, unspecified Category: Medical Plan: Continue furosemide, patient is not interested in changing amlodipine (7) Annual physical exam: Code(s): Z00.00 - Encounter for general adult medical examination without abnormal findings Category: Medical Plan: Well-balanced diet regular physical activity discussed with the patient. She will follow-up with the GI for intermittent rectal bleeding Orders: Orders Hemoglobin A1c 6 Months E78.5 - Hyperlipidemia, unspecified, I10 - Essential (primary) hypertension, R73.9 - Hyperglycemia, unspecified TSH reflex Free T4 6 Months E78.5 - Hyperlipidemia, unspecified, I10 - Essential (primary) hypertension, R73.9 - Hyperglycemia, unspecified Microalbumin, Random (w Creat) 6 Months E78.5 - Hyperlipidemia, unspecified, I10 - Essential (primary) hypertension, R73.9 - Hyperglycemia, unspecified PT Evaluation and Treatment Today M54.50 - Low back pain, unspecified Urine Culture Today R30.0 - Dysuria Comprehensive [place]. Panel Fast 6 Months E78.5 - Hyperlipidemia, unspecified, I10 - Essential (primary) hypertension, R73.9 - Hyperglycemia, unspecified Complete Blood Count Auto Diff 6 Months E78.5 - Hyperlipidemia, unspecified, I10 - Essential (primary) hypertension, R73.9 - Hyperglycemia, unspecified Lipid Panel 6 Months E78.5 - Hyperlipidemia, unspecified, I10 - Essential (primary) hypertension, R73.9 - Hyperglycemia, unspecified Medications: New nystatin 1 appl topical DAILY 60 grams 1RF ketoconazole 2% 1 appl topical BID 60 grams 0RF
== END 2025-10-04 09:24 | disposition home or self-care (01) ==
LOC: HO.HMCC 08:18
PROVIDERS: PCP Internal Medicine; Visit Provider Internal Medicine
DX: Z00.00 Encounter for general adult medical examination without abnormal findings (principal); I48.0 Paroxysmal atrial fibrillation; M54.50 Low back pain, unspecified; I10 Essential (primary) hypertension; E78.5 Hyperlipidemia, unspecified; B37.2 Candidiasis of skin and nail; R60.9 Edema, unspecified